=== PATIENT | female | born 1945 | race Caucasian/White ===

== ENCOUNTER → 2020-04-14 12:35 | Outpatient (CLI) | payer MEDICARE, SELFPAY ==
--- NOTE | ~2020-04-14 | XR_ITS ---
EXAMINATION: XR knee LT min 4V DATE: 04/14/2020 13:23 INDICATION: Left knee pain. TECHNIQUE: 4 views of left knee were obtained. COMPARISON: None. FINDINGS: Bone alignment is normal. No fracture. There is mild osteoarthritis of medial and lateral c ompartments and moderate osteoarthritis of patellofemoral compartment. No knee joint effusion. IMPRESSION: 1. Moderate left knee osteoarthritis. Reviewed, dictated and finalized at location A.
== END ==
PROVIDERS: PCP Physician Assistant; Visit Provider Physician Assistant
DX: M17.12 Unilateral primary osteoarthritis, left knee (principal)
CPT/HCPCS: 73564

== ENCOUNTER → 2021-01-02 10:27 | Outpatient (CLI) | payer MEDICARE, SELFPAY ==
--- NOTE | ~2021-01-02 | MM_ITS ---
EXAMINATION: MM screening [facility] BI w chapin HISTORY: Screening TECHNIQUE: Craniocaudal and mediolateral oblique 3-D tomosynthesis images were obtained and synthetic 2-D images were generated. CAD analysis was submitted and interpreted. COMPARISON: Comparison to multiple prior studies sequentially, with oldest reviewed study dated 05/17. BREAST PARENCHYMAL COMPOSITION: There are scattered areas of fibroglandular density. FINDINGS: There is no evidence of suspicious mass, calcification, or architectural distortion to sugg est malignancy in either breast. There has been no suspicious interval change. IMPRESSION: 1. No mammographic evidence of malignancy. 2. Recommend routine screening mammography in one year. BI-RADS Category 1: Negative Reviewed, dictated and finalized at location A.
--- NOTE | ~2021-01-02 | DEXA_ITS ---
Bone Density Report Name: Michelle Henry Age: 75 Sex: Female Ethnicity: White Date of : 1945 Indication: osteopenia; height loss; Referring Provider: Chantale Guy Study: Bone densitometry was performed. Exam Date: January 02, 2021 Accession number: [id number] Bone Density: Region BMD T-score Z-score Classification AP Spine (L1-L4) 0.889 -1.4 0.9 Osteopenia Femoral Neck (Left) 0.584 -2.4 -0.4 Osteopenia Total Hip (Left) 0.647 -2.4 -0.7 Osteopenia Femoral Neck (Right) 0.550 -2.7 -0.7 Osteoporosis Total Hip (Right) 0.565 -3.1 -1.4 Osteoporosis Total Hip Mean 0.606 -2.8 -1.1 Osteoporosis World Health Organization criteria for BMD impression classify patients as: Normal (T-score at or above -1.0), Osteopenia (T-score between -1.0 and -2.5), or Osteoporosis (T-score at or below -2.5). 10-year Fracture Risk: FRAX not reported because: Some T-score for Spine Total or Hip Total or Femoral Neck at or below -2.5 Previous Exams: Region Exam Age BMD T-score BMD Change BMD Change Date g/cm2 vs Baseline vs Previous AP Spine(L1-L4) 01/02/2021 75 0.889 -1.4 0.063* 0.023* 12/20/2016 71 0.865 -1.7 0.039* -0.080* 05/30/2012 67 0.945 -0.9 0.119* 0.009 04/08/2010 64 0.936 -1.0 0.110* -0.013 01/24/2008 62 0.948 -0.9 0.122* 0.059* 12/12/2006 61 0.889 -1.4 0.063* 0.063* 12/14/2004 59 0.826 -2.0 Total Hip(Left) 01/02/2021 75 0.647 -2.4 -0.254* -0.132* 12/20/2016 71 0.779 -1.3 -0.122* 0.011 05/30/2012 67 0.768 -1.4 -0.133* -0.054* 04/08/2010 64 0.822 -1.0 -0.079* -0.077* 01/24/2008 62 0.899 -0.4 -0.002 0.081* 12/12/2006 61 0.819 -1.0 -0.083* -0.083* 12/14/2004 59 0.901 -0.3 Total Hip(Right) 01/02/2021 75 0.565 -3.1 -0.244* -0.136* 12/20/2016 71 0.700 -2.0 -0.109* 0.031* 05/30/2012 67 0.670 -2.2 -0.139* -0.105* 04/08/2010 64 0.774 -1.4 -0.035* -0.031* 01/24/2008 62 0.806 -1.1 -0.003 0.072* 12/12/2006 61 0.734 -1.7 -0.075* -0.075* 12/14/2004 59 0.809 -1.1 *Denotes significance at 95% confidence level, LSC for AP Spine = 0.022 g/cm2, LSC for Total Hip = 0.027 g/cm2 Clinical Information Provided by Patient: Has used the
== END ==
PROVIDERS: PCP Family Medicine; Visit Provider Physician Assistant
DX: Z12.31 Encounter for screening mammogram for malignant neoplasm of breast (principal); Z78.0 Asymptomatic menopausal state; M85.89 Other specified disorders of bone density and structure, multiple sites; M81.0 Age-related osteoporosis without current pathological fracture
CPT/HCPCS: 77063; 77067; 77080

== ENCOUNTER → 2023-03-15 15:47 | Outpatient (CLI) | payer MEDICARE, SELFPAY ==
--- NOTE | ~2023-03-15 | MM_ITS ---
EXAMINATION: MM screening [facility] BI w chapin HISTORY: Screening mammogram TECHNIQUE: Craniocaudal and mediolateral oblique 3-D tomosynthesis images were obtained and synthetic 2-D images were generated. CAD analysis was submitted and interpreted. COMPARISON: 01/02/2021, 04/05/2019, 02/02/2018 BREAST PARENCHYMAL COMPOSITION:There are scattered areas of fibroglandular density. FINDINGS: No suspicious mass, calcification, or architectural distortion are identified in either fernanda ast to suggest malignancy. There has been no suspicious interval change. IMPRESSION: No mammographic evidence of malignancy. Recommend routine screening mammography in one year. BI-RADS Category 1: Negative Reviewed, dictated and finalized at location .
== END ==
PROVIDERS: PCP Family Medicine; Visit Provider Family Medicine
DX: Z12.31 Encounter for screening mammogram for malignant neoplasm of breast (principal)
CPT/HCPCS: 77063; 77067

== ENCOUNTER 2024-05-01 11:19 | Outpatient (CLI) | payer MEDICARE, SELFPAY ==
--- NOTE | ~2024-05-01 | MM_ITS ---
EXAMINATION: MM screening [facility] BI w chapin HISTORY: Screening mammogram TECHNIQUE: Craniocaudal and mediolateral oblique 3-D tomosynthesis images were obtained and synthetic 2-D images were generated. CAD analysis was submitted and interpreted. COMPARISON: 03/15/2023, 01/02/2021, 02/02/2018 BREAST PARENCHYMAL COMPOSITION:Not Dense. There are scattered areas of fibroglandular density. FINDINGS: No suspicious mass, calcification, or architectural distortion are identified in either fernanda ast to suggest malignancy. There has been no suspicious interval change. IMPRESSION: No mammographic evidence of malignancy. Recommend routine screening mammography in one year. BI-RADS Category 1: Negative Reviewed, dictated and finalized at location .
== END 2024-05-01 11:20 | disposition home or self-care (01) ==
LOC: MICIMG 11:19
PROVIDERS: PCP Family Medicine; Visit Provider Family Medicine
DX: Z12.31 Encounter for screening mammogram for malignant neoplasm of breast (principal)
CPT/HCPCS: 77063; 77067

== ENCOUNTER 2024-05-07 09:46 | Outpatient (CLI) | payer MEDICARE, SELFPAY ==
--- NOTE | ~2024-05-07 | DEXA_ITS ---
Bone Density Report Name: ANU OH Age: 79 Sex: Female Ethnicity: White Date of : 1945 Indication: postmenopausal; screening for osteoporosis; height loss; Referring Provider: IRISH OSORIO Study: Bone densitometry was performed. Exam Date: May 07, 2024 Accession number: [id number] Bone Density: Region BMD T-score Z-score Classification AP Spine(L2, L3, L4) 0.890 -1.7 0.9 Osteopenia Femoral Neck (Left) 0.546 -2.7 -0.6 Osteoporosis Total Hip (Left) 0.596 -2.8 -0.9 Osteoporosis Femoral Neck (Right) 0.517 -3.0 -0.8 Osteoporosis Total Hip (Right) 0.581 -3.0 -1.1 Osteoporosis Total Hip Mean 0.588 -2.9 -1.0 Osteoporosis World Health Organization criteria for BMD impression classify patients as: Normal (T-score at or above -1.0), Osteopenia (T-score between -1.0 and -2.5), or Osteoporosis (T-score at or below -2.5). 10-year Fracture Risk: FRAX not reported because: Some T-score for Spine Total or Hip Total or Femoral Neck at or below -2.5 Clinical Information Provided by Patient: Has used the following medications: Vitamin D, Calcium Patient maximum height was 61.5 Drinks caffeinated beverages Onset of menses at age 14 Number of children 2 Impression: The patient has osteoporosis, based on the Right Total Hip T-score. Discussion: INCREASED RISK OF FRACTURE. BONE DENSITY IS UNDESIRABLY LOW AT ONE OR MORE SKELETAL SITES, CONSISTENT WITH POSTMENOPAUSAL OSTEOPOROSIS. This patient's lowest T-score meets the World Health Organization's (WHO) criteria for osteoporosis at one or more sites (T-score -2.5 or below). In untreated patients, the risk of osteoporotic fracture increases approximately two-fold for each 1.0 SD decrease in T-score. Low bone density is not the only risk factor for fracture; also consider factors such as patient's age, frailty or poor health, risk of falling, risk of injury, previous osteoporotic fracture, family history of osteoporosis, cigarette smoking, low body weight, etc. Not everyone with low bone mineral density has osteoporosis; osteomalacia and other metabolic bone disorders should also be considered. Patients who have osteoporosis should be evaluated for specific diseases and conditions (secondary causes) that may cause or contribute to bone loss. The [place] [employer]ocrinologists (AACE) and National Osteoporosis Foundation (NOF) recommend pharmacologic intervention for all postmenopausal women whose T-score is in this range. The patient should follow a healthful lifestyle (good nutrition with adequate calcium and vitamin D, and appropriate weight-bearing exercise). Follow-Up: Consider a repeat BMD and Vertebral Fracture Assessment (VFA) exam in 2 years or sooner if medically necessary, to reassess this patient's status. Reported by: LARS on 05/07/2024 10:15:00 AM. Revi
== END 2024-05-07 09:47 | disposition home or self-care (01) ==
LOC: ANHIMG 09:47
PROVIDERS: PCP Family Medicine; Visit Provider Family Medicine
DX: M81.0 Age-related osteoporosis without current pathological fracture (principal); M85.88 Other specified disorders of bone density and structure, other site
CPT/HCPCS: 77080

== ENCOUNTER 2024-05-08 15:30 | Emergency (ER) | payer MEDICARE, SELFPAY ==
[2024-05-08 15:38] VITALS: BP 148/63; PULSE 64; RESP 16; TEMP 36; O2SAT 100
--- NOTE | 2024-05-08 15:40 | ED.EAR ---
HPI - Ear Problem General Chief complaint: Ear Stated complaint: Bilateral Ear clogged Time Seen by Provider: 05/08/24 15:40 Source: patient, RN notes reviewed and old records reviewed Mode of arrival: ambulatory Limitations: no limitations History of Present Illness HPI Narrative: patient presents with request for removal of bilateral cerumen impaction. She reports that she has been to embroidery worker today, they attempted to remove cerumen, but were not successful. She had been using Debrox for a couple of days prior to this. She does report decreased hearing in the left ear. She voices no other concerns or complaints right now. Related Data Home Medications Medication Instructions Recorded Confirmed aspirin 81 mg chewable tablet 81 mg PO DAILY 07/13/19 05/08/24 cholecalciferol (vitamin D3) 25 1,000 unit PO DAILY 07/13/19 05/08/24 mcg (1,000 unit) capsule glucosamine 750 mg-chondroitin 600 2 tablet PO BID 07/13/19 05/08/24 mg chewable tablet vit C 250 mg-vit E 90 mg-zinc 40 1 tablet PO BID 04/08/23 05/08/24 mg-copper 1 [id number] capsule (PreserVision AREDS-2) doxycycline hyclate 20 mg tablet 100 mg PO PRN PRN Acne 11/24/23 05/08/24 naproxen sodium 220 mg tablet 220 mg PO DAILY 05/04/24 05/08/24 (Aleve) pravastatin 10 mg tablet 10 mg PO DAILY 05/08/24 05/08/24 Allergies Allergy/AdvReac Type Severity Reaction Status Date / Time rosuvastatin Allergy Intermediate myalgias, Verified 05/08/24 15:38 elevated CK simvastatin Allergy Intermediate myalgias, Verified 05/08/24 15:38 elevated CK inositol AdvReac Intermediate Flushing Verified 05/08/24 15:38 niacin AdvReac Intermediate significant Verified 05/08/24 15:38 flushing, will not tolerate Review of Systems Review of Systems: All systems reviewed & are unremarkable except as noted in HPI and below Constitutional: Constitutional: Reports no additional constitutional complaints ENT: Reports system reviewed and no additional complaints, except as documented and Reports as per HPI Cardiovascular: Cardiovascular: Reports no additional cardiovascular complaints Respiratory: Respiratory: Reports no additional respiratory complaints Gastrointestinal: Gastrointestinal: Reports no additional gastrointestinal complaints PMFSH Past Medical History Medical History Cervical spondylosis Hepatitis C antibody test negative (~04/11/17) Lipoma (~2012) Metabolic syndrome X Mixed hyperlipidemia Overweight Postmenopausal osteoporosis Surgical History Surgical History History of colonoscopy (~06/17/15) History of colonoscopy (~01/21/05) History of esophagogastroduodenoscopy (EGD) (~05/14/09) History of tubal ligation (~1975) Family History Family History Father Family history of diabetes mellitus in first degree relative Acute myocardial infarction, Onset Age: 64 Family history of cardiovascular disease Diabetes mellitus Hypertension Mother Acute myocardial infarction, Onset Age: 66 Family history of cardiovascular disease Depression Hypertension Family history of malignant neoplasm of thyroid Sibling Acute myocardial infarction Social History Social History Social History: Caffeine- coffee Smoking status: Never smoker Second hand tobacco smoke exposure: No Alcohol intake: current Alcohol use details: Occasional Substance use: never Substance use type: does not use Lack of Transportation: No Lack of Food: Never True Current Housing: I Have Housing Concerned About Future Housing: No Difficulty Paying Gas/Electric Bills: No Difficulty Paying for Meds: No Currently Unemployed: No Education: Master's Degree or Higher Difficulty w/ Childcare or Family Care: No Occup
== END 2024-05-08 16:27 | disposition home or self-care (01) ==
PROVIDERS: Emergency Provider Nurse Practitioner Family; PCP Family Medicine
DX: H61.23 Impacted cerumen, bilateral (principal); H60.502 Unspecified acute noninfective otitis externa, left ear; H66.002 Acute suppurative otitis media without spontaneous rupture of ear drum, left ear; E78.2 Mixed hyperlipidemia; Z79.82 Long term (current) use of aspirin
CPT/HCPCS: 69210; 99213; A9270; G0463

== ENCOUNTER 2024-06-10 12:56 | Inpatient (IN) | payer MEDICARE, SELFPAY ==
[2024-06-10] VITALS (36 sets, daily range): BP systolic 102–175; BP diastolic 53–81; PULSE 56–94; RESP 12–29; TEMP 36.6–36.7; O2SAT 90–100; BMI 28.7
--- NOTE | ~2024-06-10 | XR_ITS ---
EXAMINATION: XR chest 2V DATE: 06/10/2024 13:22 INDICATION: Chest pain. Shortness of breath. TECHNIQUE: Frontal and lateral views of the chest were obtained. COMPARISON: Chest 2 views 06/04/2013 FINDINGS: There is no pneumonia, pleural effusion or pneumothorax. Cardiomegaly is noted. IMPRESSION: 1. Cardiomegaly. Reviewed, dictated and finalized at location A. IMPRESSION: 1. Cardiomegaly.
--- NOTE | ~2024-06-10 | XR_ITS ---
EXAMINATION: XR chest 1V portable DATE: 06/12/2024 10:36 INDICATION: Respiratory distress. TECHNIQUE: A single frontal view of the chest was obtained. COMPARISON: Chest 2 views 06/10/2024, chest CT 06/10/2024 FINDINGS: There is a diffuse interstitial pattern, consistent with mild pulmonary edema. No pleural e ffusion or pneumothorax. Cardiomegaly is noted. IMPRESSION: 1. Mild pulmonary edema. 2. Cardiomegaly. Reviewed, dictated and finalized at location B.
--- NOTE | ~2024-06-10 | CT_ITS ---
EXAMINATION: CTA chest abdomen pelvis DATE: 06/10/2024 14:36 INDICATION: Chest pain; rule out dissection. TECHNIQUE: Computed tomography angiography (CTA) of the chest, abdomen and pelvis was performed with 100 mL Omnipaque-350 intravenous contrast timed to evaluate the pulmonary arteries. Coronal maximum i ntensity projection 3D-reconstructions were created by the technologist. Automated exposure control a nd iterative reconstruction technique were employed. Exam dose: 468.48 mGy-cm total exam DLP. COMPARISON: None. FINDINGS: There is no evidence of pulmonary embolism. No hilar or mediastinal mass lesion or lymphadenopathy. Cardiomegaly. No pericardial or pleural effusion. There is atherosclerotic calcification of the aortic arch, descending thoracic and abdominal aorta bu t no thoracic or abdominal aortic aneurysm or dissection. No pulmonary infiltrate or consolidation or suspicious pulmonary mass density is noted. 1.4 x 2 cm gallstone is noted in the dependent aspect of the gallbladder. No gallbladder wall thickening or pericholecystic fluid or fat stranding. No bile duct or pancreatic duct dilatation. No hepatic, splenic, pancreatic, adrenal or renal space occupying mass lesion. No splenomegaly. No urinary tract calculus or hydroureteronephrosis. Pessary device. The urinary bladder, uterus and adnexal areas are unremarkable. No intraperitoneal or retroperitoneal or pelvic mass lesion or adenopathy or ascites. No bowel obstruction, bowel wall thickening, pneumatosis or intraperitoneal free air. Small fat-containing umbilical hernia. No suspicious osteolytic lesions. Occasional probable bone islands. Degenerative changes of the cervical, thoracic and lumbar spine. IMPRESSION: Thoracic and abdominal aortic atherosclerosis. No thoracic or abdominal aortic aneurysm or dissection Cardiomegaly Cholelithiasis Reviewed, dictated and finalized at Location A. Reviewed, dictated and finalized at location A. IMPRESSION: Thoracic and abdominal aortic atherosclerosis. No thoracic or abdo tanya aortic aneurysm or dissection Cardiomegaly Cholelithiasis
--- NOTE | ~2024-06-10 | XR_ITS ---
EXAMINATION: XR chest 1V portable DATE: 06/13/2024 14:20 INDICATION: Cough TECHNIQUE: frontal view of the chest was obtained. COMPARISON: Chest radiograph dated 06/12/2024 FINDINGS: Cardiomegaly. Retrocardiac airspace opacities in the left lower lung zone as well as blunting at the left costophrenic angle consistent with small left pleural effusion and associated atelectasis and/or pneumonia. There is mild increased interstitial pattern in the bilateral lower lung zones consistent with mild pulmonary edema. No pneumothorax or evident right pleural effusion Colonic interposition u nderlying the right hemidiaphragm. IMPRESSION: 1. Likely congestive heart failure with cardiomegaly and mild pulmonary edema and the lower lungs. 2. Small left pleural effusion with associated left basilar atelectasis or pneumonia. Reviewed, dictated and finalized at location A. IMPRESSION: 1. Likely congestive heart failure with cardiomegaly and mild pulmonary edema a nd the lower lungs. 2. Small left pleural effusion with associated left basilar atelectasis or pneu monia.
--- NOTE | 2024-06-10 12:59 | ECG_ITS ---
Test Date: 2024-06-10 13:05:02 Measurements Intervals [place] Rate: 62 P: 41 OK: 147 QRS: 1 QRSD: 77 T: -1 QT: 413 QTc: 420 Interpretive Statements SINUS RHYTHM VOLTAGE CRITERIA FOR LVH [MEETS CRITERIA IN ONE OF: R(aVL), S(V1), R(V5), R(V5/V6)+S(V1)] NONSPECIFIC T-WAVE ABNORMALITY ABNORMAL ECG No previous ECG available for comparison Electronically Signed On 06-10-2024 13:13:36 CDT by Judd Helton M.D.
[2024-06-10 13:13] LABS: Basophils Absolute Auto 0.1 K/mm3 (0.0-0.1); Basophils Percent Auto 0.5 % (0.2-1.2); Eosinophils Absolute Auto 0.1 K/mm3 (0-0.3); Hemoglobin 14.5 g/dL (12.0-15.0); Immature Granulocyte Absolute 0.07 K/mm3 (0.00-0.031); Immature Granulocyte Percent A 0.6 % (0-0.5); Lymphocytes Absolute Auto 1.51 K/mm3 (0.9-3.2); Lymphocytes Percent Auto 12.9 % (18.3-44.2); Mean Corpuscular Hemoglobin 29.1 pg (26-34); Mean Corpuscular Volume 88.2 fl (80-100); Mean Platelet Volume 10.9 fl (7.4-10.4); Monocytes Absolute Auto 0.9 K/mm3 (0.1-0.6); Monocytes Percent Auto 7.6 % (2.6-8.5); Neutrophils Percent Auto 77.4 % (45.5-73.1); Platelet Count Result 234 k/mm3 (150-375); Red Blood Count 4.99 M/mm3 (4.2-5.4); Red Cell Distribution Width 13.8 % (11.5-14.5); White Blood Count 11.7 K/mm3 (4.5-10.0)
[2024-06-10] MEDS: ASPIRIN 81 MG CHEWABLE TABLET 324 MG PO (13:16)
[2024-06-10 13:23] LABS: Alanine Aminotransferase 31 U/L (6-35); Albumin Level 4.4 g/dL (3.5-5.1); Alkaline Phosphatase 79 U/L (38-126); Anion Gap 7 mmol/L (4-12); Aspartate Amino Transferase 66 U/L (14-36); Blood Urea Nitrogen 23 mg/dL (7-17); Calcium 9.1 mg/dL (8.4-10.2); Carbon Dioxide 27 mmol/L (22-30); Chloride 103 mmol/L (98-107); Estimated CRCL calculation 71 ml/min; Estimated Glomerular Filt Rate > 60; Glucose 127 mg/dL (65-110); Lipase 77 U/L (23-300); Sodium 137 mmol/L (137-145)
[2024-06-10 13:25] LABS: INR 0.9; Prothrombin Time 12.7 Seconds (11.1-14.7)
[2024-06-10 13:26] LABS: Partial Thromboplastin Time 23.3 Seconds (22.3-36.8)
--- NOTE | 2024-06-10 13:47 | ED.CHESTPAIN ---
HPI - Chest Pain General Chief Complaint: Chest Pain Stated Complaint: mid-sternal chest pain 1.5 days, SOB Time Seen by Provider: 06/10/24 12:59 Source: patient Mode of arrival: ambulatory Limitations: no limitations History of Present Illness HPI narrative: This is a 79-year-old female, with history of hypertension, hyperlipidemia, who presents to the emergency department complaining of chest pain for the past day and half. The patient states she was in her usual state of health when the pain began. It is described as pressure-like radiating to the back and left arm. This is associated with dyspnea on exertion and aggravation with physical exertion. She denies nausea, vomiting, diaphoresis, bleeding has no other complaints at this time. Related Data Home Medications Medication Instructions Recorded Confirmed aspirin 81 mg chewable tablet 81 mg PO DAILY 07/13/19 05/08/24 cholecalciferol (vitamin D3) 25 1,000 unit PO DAILY 07/13/19 05/08/24 mcg (1,000 unit) capsule glucosamine 750 mg-chondroitin 600 2 tablet PO BID 07/13/19 05/08/24 mg chewable tablet vit C 250 mg-vit E 90 mg-zinc 40 1 tablet PO BID 04/08/23 05/08/24 mg-copper 1 [id number]-[id number]-jegtgt capsule (PreserVision AREDS-2) doxycycline hyclate 20 mg tablet 100 mg PO PRN PRN Acne 11/24/23 05/08/24 naproxen sodium 220 mg tablet 220 mg PO DAILY 05/04/24 05/08/24 (Aleve) pravastatin 10 mg tablet 10 mg PO DAILY 05/08/24 05/08/24 Allergies Allergy/AdvReac Type Severity Reaction Status Date / Time rosuvastatin Allergy Intermediate myalgias, Verified 05/08/24 15:38 elevated CK simvastatin Allergy Intermediate myalgias, Verified 05/08/24 15:38 elevated CK inositol AdvReac Intermediate Flushing Verified 05/08/24 15:38 niacin AdvReac Intermediate significant Verified 05/08/24 15:38 flushing, will not tolerate Review of Systems Review of Systems: All systems reviewed & are unremarkable except as noted in HPI and below PMFSH Past Medical History Medical History Cervical spondylosis Hepatitis C antibody test negative (~04/11/17) Lipoma (~2012) Metabolic syndrome X Mixed hyperlipidemia Overweight Postmenopausal osteoporosis Surgical History Surgical History History of colonoscopy (~06/17/15) History of colonoscopy (~01/21/05) History of esophagogastroduodenoscopy (EGD) (~05/14/09) History of tubal ligation (~1975) Family History Family History Father Family history of diabetes mellitus in first degree relative Acute myocardial infarction, Onset Age: 64 Family history of cardiovascular disease Diabetes mellitus Hypertension Mother Acute myocardial infarction, Onset Age: 66 Family history of cardiovascular disease Depression Hypertension Family history of malignant neoplasm of thyroid Sibling Acute myocardial infarction Social History Social History Social History: Caffeine- coffee Smoking status: Never smoker Second hand tobacco smoke exposure: No Alcohol intake: current Alcohol use details: Occasional Substance use: never Substance use type: does not use Lack of Transportation: No Lack of Food: Never True Current Housing: I Have Housing Concerned About Future Housing: No Difficulty Paying Gas/Electric Bills: No Difficulty Paying for Meds: No Currently Unemployed: No Education: Master's Degree or Higher Difficulty w/ Childcare or Family Care: No Occupation/Education: retired Gender identity (if verbalized by the patient): Female Exam Narrative: GENERAL: Well-developed, well-nourished, and in no acute distress. HEAD: Normocephalic, atraumatic. EYES: PERRLA and EOMI. ENT: Nares clear, no rhinorrhea or epistaxis. Mucous membranes moist. Oropharynx without tonsillar hypertrophy exudate or other lesions. NECK: Supple. No JVD CHEST: Clear to auscultation. No respiratory distress. No wheezes rales or rhonchi HEART: Regular rate and rhythm. No murmur heard. Normal peripheral pulses. ABDOMEN: Soft, nontender, nondistended, normal active bowel sounds. EXTREMITIES: Normal range of motion. No edema. SKIN: Warm, dry, no rash. NEURO: Alert and oriented x3. No focal deficit. Moving all 4 limbs spontaneously PSYCH: Normal mood and affect. Course Course Emergency Course: 13:45 - Notification received from lab, the patient's troponin is elevated to 3. EKG was not concerning for ST segment elevation. I suspect NSTEMI. Will contact Cardiology. 13:52 - Doctor Sunitha at bedside. Repeat EKG not concerning for STEMI. No immediate indication for catheterization at this time. Will rule out dissection and start heparin if indicated. Will attempt to control pain with nitro. If unsuccessful, the patient may need urgent catheterization. 14:50 - On re-evaluation, by my interpretation there is no noted dissection. The patient states her chest pain has significantly improved despite vomiting after taking nitroglycerin. 15:05 - Repeat EKG done at 14:57 demonstrates an inferior STEMI. greenskeeper laborer activated. Dr. Helton discussing the patient with marketing sales consultant, Dr. Pool. CTA negative for dissection. 15:09 - I discussed the patient with marketing sales consultant, Dr. Pool. 15:27 - I discussed the patient with hospitalist, AYAAN Fay and tobacco stripping machine operator, Dr. Hickey. Vital Signs Vital signs: Vital Signs Temperature 98.1 F 06/10/24 13:10 Pulse Rate 63 06/10/24 13:10 Respiratory Rate 21 H 06/10/24 13:10 Blood Pressure 175/69 H 06/10/24 13:10 Pulse Oximetry 100 06/10/24 13:10 Oxygen Delivery Room Air 06/10/24 13:10 Temperature 98.1 F 06/10/24 13:10 Pulse Rate 65 06/10/24 14:15 Respiratory Rate 17 06/10/24 14:15 Blood Pressure 140/81 06/10/24 14:15 Pulse Oximetry 97 06/10/24 14:15 Oxygen Delivery Room Air 06/10/24 13:13 MDM - Chest Pain MDM Narrative Medical decision making narrative: Plan: Labs, EKG, troponin, pain control, imaging, reassess Lab Data 06/10/24 13:08 06/10/24 13:08 Labs: Lab Results 06/10/24 Range/Units 13:08 WBC 11.7 H (4.5-10.0) K/mm3 RBC 4.99 (4.2-5.4) M/mm3 Hgb 14.5 (12.0-15.0) g/dL Hct 44.0 (37.0-47.0) % MCV 88.2 (80-100) fl MCH 29.1 (26-34) pg MCHC 33.0 (32-36) g/dl RDW 13.8 (11.5-14.5) % Plt Count 234 (150-375) k/mm3 MPV 10.9 H (7.4-10.4) fl Immature Gran % (Auto) 0.6 H (0-0.5) % Neut % (Auto) 77.4 H (45.5-73.1) % Lymph % (Auto) 12.9 L (18.3-44.2) % [place] % (Auto) 7.6 (2.6-8.5) % Eos % (Auto) 1.0 (0-4.4) % Baso % (Auto) 0.5 (0.2-1.2) % Lymph # (Auto) 1.51 (0.9-3.2) K/mm3 [place] # (Auto) 0.9 H (0.1-0.6) K/mm3 Eos # (Auto) 0.1 (0-0.3) K/mm3 Baso # (Auto) 0.1 (0.0-0.1) K/mm3 Abs Immat Gran (auto) 0.07 H (0.00-0.031) K/mm3 Absolute Neuts (auto) 9.0 H (1.3-6.7) K/mm3 Absolute Nucleated RBC 0.000 (0.0-0.012) K/mm3 Nucleated RBC % 0.0 (0.0-0.2) % PT 12.7 (11.1-14.7) Seconds INR 0.9 APTT 23.3 (22.3-36.8) Seconds Sodium 137 (137-145) mmol/L Potassium 4.0 (3.4-5.0) mmol/L Chloride 103 (98-107) mmol/L Carbon Dioxide 27 (22-30) mmol/L Anion Gap 7 (4-12) mmol/L BUN 23 H (7-17) mg/dL Creatinine 0.50 L (0.7-1.0) mg/dL Estim Creat Clear Calc 71 ml/min Estimated GFR > 60 (59 - ) Glucose 127 H (65-110) mg/dL Calcium 9.1 (8.4-10.2) mg/dL Total Bilirubin 1.0 (0.2-1.3) mg/dL AST 66 H (14-36) U/L ALT 31 (6-35) U/L Alkaline Phosphatase 79 (38-126) U/L Troponin I 3.180 H* (0.000-0.034) ng/mL Total Protein 8.0 (6.3-8.2) g/dL Albumin 4.4 (3.5-5.1) g/dL Lipase 77 (23-300) U/L ECG Data EKG #1: Attestation: I personally reviewed and interpreted this ECG as follows: ECG completion date: 06/10/24 ECG completion time: 13:05 Prior ECG tracings: not available for review Interpretation: Sinus rhythm, rate 62, normal axis, no ST segment elevations or T-wave inversions concerning for ischemia, normal intervals with QTC of 420. EKG #2: Attestation: I personally reviewed and interpreted this ECG as follows: ECG completion date: 06/10/24 ECG completion time: 14:07 Prior ECG tracings: available for review Interpretation: Sinus rhythm, rate 61, normal axis, no ST segment elevations or T-wave inversions concerning for ischemia, normal intervals with QTC of 418. EKG #3: Attestation: I personally reviewed and interpreted this ECG as follows: ECG completion date: 06/10/24 ECG completion time: 14:57 Prior ECG tracings: available for review Interpretation: Sinus bradycardia, rate 57, normal axis, ST segment elevation SD in the inferior leads (2, 3, AVF as well as V5 and V6). Normal intervals with QTC of 437. Critical Care Time Critical Care Time Critical Care Time: Yes Total Critical Care Time: 35 Discharge Plan Discharge Clinical Impression: Acute ST elevation myocardial infarction (STEMI) of inferior wall Chest pain Qualifiers: Chest pain type: unspecified Qualified Code(s): R07.9 - Chest pain, unspecified Patient Disposition: Still a Patient Condition: Critical Time of Disposition: 15:05
[2024-06-10] MEDS: NITROGLYCERIN SL 0.4 MG TABLET SUBLINGUAL (14:11)
--- NOTE | 2024-06-10 14:17 | PC.NURSE ---
second 0.4 nitro given at this time
--- NOTE | 2024-06-10 14:22 | PC.NURSE ---
third sublingal 0.4 nitro given at this time
--- NOTE | 2024-06-10 14:35 | PM.CNCAR ---
Assessment and Plan Assessment and plan (1) Non-STEMI (non-ST elevated myocardial infarction): Code(s): I21.4 - Non-ST elevation (NSTEMI) myocardial infarction Status: Acute Assessment and Plan: She is having chest pain and symptoms other worrisome for non ST-elevation myocardial infarction. EKG reviewed which does not have ST elevations which meet criteria for STEMI. EKG is repeated while in the ER which is predominantly unchanged from previous. She is still having pain however but has only received aspirin to this point. Given the fact that she does have high blood pressure as well as pain in between her shoulder blades, a CT scan of chest to rule out for dissection to be performed. Assuming CT scan is unremarkable, patient should be initiated on heparin per protocol for ACS. Aspirin 81 mg p.o. daily to be started, sublingual nitroglycerine 0.4 mg sublingual p.r.n. chest pain repeat Q 5 minutes for total of 3 doses. Pain is not relieved, up titration of nitroglycerin utilizing nitro drip if need be. P.r.n. IV morphine also can be provided to decrease myocardial oxygen demand. Patient does have a statin allergy but tolerates problems statin. Will increase pravastatin to 40 mg daily. Initiate O2. Trend cardiac enzymes. If pain continues and is not resolved, will pursue cardiac catheterization urgently. If pain does resolve, keep NPO after midnight for planned for cardiac catheterization in the morning. Continue losartan 25 mg p.o. daily and her blood pressure does seem to be significantly elevated and will initiate metoprolol tartrate 25 mg p.o. b.i.d.. 2D echocardiogram Doppler will be ordered also (2) Mixed hyperlipidemia: Code(s): E78.2 - Mixed hyperlipidemia Status: Acute Assessment and Plan: Will check a fasting lipid panel and initiate pravastatin (3) Essential (primary) hypertension: Code(s): I10 - Essential (primary) hypertension Status: Acute Assessment and Plan: Above goal. Continue losartan and adding metoprolol (4) Chest pain: Code(s): R07.9 - Chest pain, unspecified Status: Acute Assessment and Plan: Likely related non-STEMI but will rule out dissection with a CT scan (5) Prediabetes: Code(s): R73.03 - Prediabetes Status: Acute Assessment and Plan: Will check an A1c History of Present Illness History of Present Illness Consult date/time: 06/10/24 14:35 Requesting physician: Kevin Hurtado MD Consult reason: chest pain Reason For Visit: mid-sternal chest pain 1.5 days, SOB Narrative: Reason for consultation: Will chest pain, elevated troponin Date of service 06/10/2024 Requesting provider: Dr. Hurtado History: Patient is a 79-year-old female who came to hospital because of chest pain. Patient states that she started to have chest pain 2 days ago. States that the pain has been relatively constant since that time. It is located anterior chest radiated to her back and between her shoulder blades. She does describe some numbness in her arms. Pain worsened today and worsened with activity and therefore she came to the hospital for further workup and evaluation. Again she states that her symptoms have been relatively constant over the past couple of days but again progressively worsening. She has not had any past episodes. She did state that she had some bowel movements and her symptoms did improve. She otherwise denies any recent shortness of breath, syncope, presyncope, paroxysmal nocturnal dyspnea, orthopnea, edema palpitations. Electrocardiogram shows some nonspecific ST and T-wave abnormality and initial troponin is elevated. Review of Systems Review of Systems: All systems reviewed & are unremarkable except as noted in HPI and below Constitutional: Constitutional: Denies body ache(s) Eyes: Eyes: Denies blurry vision ENT: Denies Normal hearing present Cardiovascular: Cardiovascular: Reports chest pain and Denies diaphoresis Respiratory: Respiratory: Denies chest congestion Gastrointestinal: Gastrointestinal: Denies abdominal pain Genitourinary: Genitourinary: Denies hematuria Musculoskeletal: Musculoskeletal: Denies myalgias Integumentary/Breasts: Skin/Breast: Denies erythema Neurologic: Denies Abnormal speech present Psychiatric: Psychiatric: Denies anxiety Endocrine: Endocrine: Denies excessive sweating Hematologic/Lymphatic: Hematologic/Lymphatic: Denies easy bleeding Allergic/Immunologic: Allergic/Immunologic: Denies GI upset with certain foods PMFSH Past Medical History Medical History Cervical spondylosis Hepatitis C antibody test negative (~04/11/17) Lipoma (~2012) Metabolic syndrome X Mixed hyperlipidemia Overweight Postmenopausal osteoporosis Surgical History Surgical History History of colonoscopy (~06/17/15) History of colonoscopy (~01/21/05) History of esophagogastroduodenoscopy (EGD) (~05/14/09) History of tubal ligation (~1975) Family History Family History Father Family history of diabetes mellitus in first degree relative Acute myocardial infarction, Onset Age: 64 Family history of cardiovascular disease Diabetes mellitus Hypertension Mother Acute myocardial infarction, Onset Age: 66 Family history of cardiovascular disease Depression Hypertension Family history of malignant neoplasm of thyroid Sibling Acute myocardial infarction Social History Social History Social History: Caffeine- coffee Smoking status: Never smoker Second hand tobacco smoke exposure: No Alcohol intake: current Alcohol use details: Occasional Substance use: never Substance use type: does not use Lack of Transportation: No Lack of Food: Never True Current Housing: I Have Housing Concerned About Future Housing: No Difficulty Paying Gas/Electric Bills: No Difficulty Paying for Meds: No Currently Unemployed: No Education: Master's Degree or Higher Difficulty w/ Childcare or Family Care: No Occupation/Education: retired Gender identity (if verbalized by the patient): Female Meds Home Medications and Allergies Home Medications Medication Instructions Recorded Confirmed Type aspirin 81 mg chewable tablet 81 mg PO DAILY 07/13/19 05/08/24 History cholecalciferol (vitamin D3) 25 1,000 unit PO DAILY 07/13/19 05/08/24 History mcg (1,000 unit) capsule glucosamine 750 mg-chondroitin 600 2 tablet PO BID 07/13/19 05/08/24 History mg chewable tablet vit C 250 mg-vit E 90 mg-zinc 40 1 tablet PO BID 04/08/23 05/08/24 History mg-copper 1 mi-dintsy-hnicee capsule (PreserVision AREDS-2) doxycycline hyclate 20 mg tablet 100 mg PO PRN PRN Acne 11/24/23 05/08/24 History losartan 25 mg tablet See Rx Instructions .Route 04/10/24 05/08/24 Rx .COMPLEX #90 tabs naproxen sodium 220 mg tablet 220 mg PO DAILY 05/04/24 05/08/24 History (Aleve) ciprofloxacin 0.3 %-dexamethasone 4 drp EACH EAR Q12H 7 days #7.5 mL 05/08/24 Rx 0.1 % ear drops,suspension pravastatin 10 mg tablet 10 mg PO DAILY 05/08/24 05/08/24 History Allergies Allergy/AdvReac Type Severity Reaction Status Date / Time rosuvastatin Allergy Intermediate myalgias, Verified 05/08/24 15:38 elevated CK simvastatin Allergy Intermediate myalgias, Verified 05/08/24 15:38 elevated CK inositol AdvReac Intermediate Flushing Verified 05/08/24 15:38 niacin AdvReac Intermediate significant Verified 05/08/24 15:38 flushing, will not tolerate Vital Signs Vital Signs - 24 hr 06/10/24 13:10 06/10/24 13:13 06/10/24 14:15 Temperature 36.7 C Pulse Rate 63 65 Respiratory Rate 21 H 17 Blood Pressure 175/69 H 140/81 Pulse Oximetry 100 100 97 Oxygen Delivery Room Air Room Air Exam Narrative: Patient is awake alert oriented appears to be in mild distress. Appears stated age Const: General: uncomfortable HENMT: Ears: TM's normal bilaterally Face/Nose/Sinus: Normal nares present Eyes: General: appearance normal, both eyes and all related structures Sclera: sclerae normal Neck: Neck: supple and no JVD Chest: Other: No reproducible chest wall pain to palpation Resp: Effort & Inspection: normal respiratory effort Auscultation: clear to auscultation bilaterally Cardio: Rate: regular rate Rhythm: regular rhythm Heart sounds: no murmurs GI: Inspection: non-distended GI Palp: Yes Soft to palpation Skin: General skin exam: normal color Neuro: Speech: normal speech Sensory Exam: normal sensation Extrem: General: normal to inspection Psych: Mental Status: mental status grossly normal Affect: normal affect Results Labs and Meds 06/10/24 13:08 06/10/24 13:08 Lab results: Cardiac Enzymes 06/10/24 Range/Units 13:08 AST 66 H (14-36) U/L Troponin I 3.180 H* (0.000-0.034) ng/mL Coagulation 06/10/24 Range/Units 13:08 PT 12.7 (11.1-14.7) Seconds APTT 23.3 (22.3-36.8) Seconds CBC 06/10/24 Range/Units 13:08 WBC 11.7 H (4.5-10.0) K/mm3 RBC 4.99 (4.2-5.4) M/mm3 Hgb 14.5 (12.0-15.0) g/dL Hct 44.0 (37.0-47.0) % Plt Count 234 (150-375) k/mm3 Lymph # (Auto) 1.51 (0.9-3.2) K/mm3 [place] # (Auto) 0.9 H (0.1-0.6) K/mm3 Eos # (Auto) 0.1 (0-0.3) K/mm3 Baso # (Auto) 0.1 (0.0-0.1) K/mm3 Comprehensive Metabolic Panel 06/10/24 Range/Units 13:08 Sodium 137 (137-145) mmol/L Potassium 4.0 (3.4-5.0) mmol/L Chloride 103 (98-107) mmol/L Carbon Dioxide 27 (22-30) mmol/L BUN 23 H (7-17) mg/dL Creatinine 0.50 L (0.7-1.0) mg/dL Glucose 127 H (65-110) mg/dL Calcium 9.1 (8.4-10.2) mg/dL AST 66 H (14-36) U/L ALT 31 (6-35) U/L Alkaline Phosphatase 79 (38-126) U/L Total Protein 8.0 (6.3-8.2) g/dL Albumin 4.4 (3.5-5.1) g/dL Patient Weight 06/10/24 23:59 Weight 67.6 kg EKG personally viewed and independently interpreted showing normal sinus rhythm and nonspecific ST T-wave abnormality
--- NOTE | 2024-06-10 14:59 | PC.NURSE ---
patient began complaining of chest pain restarting at about 1456. EKG preformed and glass engraver at bedside to check on the patient at the same time. STEMI alert called. patient alert and oriented. complaining of pain that feels tight and like pressure 5/10. patient had one episode of emesis in cat scan.
[2024-06-10] MEDS: MORPHINE SULFATE (*CRX) 2 MG/ML INJ IV PUSH ×2 (15:12→20:57)
--- NOTE | 2024-06-10 15:29 | P.HP_ITS ---
H&P: HPI History of Present Illness Date/Time: 06/10/24 15:29 Chief Complaint: Chest pain Narrative: This is a 79 year old female with a significant past medical history of hypertension, hyperlipidemia who presented with complaints of chest pain that has been off and on since Tuesday. Patient reports the following history of presenting illness. She states that she started noticing pain in between her shoulder blades and did not think much of it as she attributed it to having chronic neck pain. She states that on Tuesday the pain was still there and she started to have nausea and vomiting. By Tuesday the nausea and vomiting worsened and pain became more constant especially with exertion. She then decided to come to the ER for further evaluation of her symptoms. She denies any fever, chills, nausea, vomiting, diarrhea, abdominal pain, chest pain, or shortness of breath right now. She does report that the pain in between her shoulder blades is still there but not as bad as it has been. She is currently resting comfortably in bed with son at the bedside. Work up in the hospital included a chest x-ray with shown cardiomegaly. Chest/Abdomen/Pelvis CTA was negative for Thoracic and abdominal aortic atherosclerosis, aneurysm or dissection, cholelithiasis. initial labs shown a white blood cell count of 11.7, blood sugar 127, AST 66, 1st troponin was 3.180, lipase 77. Initial EKG showed sinus rhythm with a rate of 62 with a nonspecific T-wave abnormality and a QTC of 420. cardiology was consulted while in the ED and instructed to give nitro for pain. She was given a dose of nitroglycerin sublingual which improved her chest pain significantly however she Head nausea vomiting shortly after. A repeat EKG was done and demonstrated an inferior STEMI and technical laboratory asst was activated for emergent cardiac catheterization with Dr. Pool office communication professor. Patient was given aspirin 324 mg, morphine 2 mg IV push, Zofran 4 mg IV push, Brilinta 180 mg, and started on a heparin infusion while in the ER. She was then taken to technical laboratory asst and was found to have a 100% thrombotic occlusion to her mid-distal left circumflex artery and had balloon angioplasty with stent placement. They also found diffuse stenosis 70-80% ostial-proximal segment of OM1 branch, 50-60% stenosis mid LAD, 70% stenosis proximal segment of major diagonal branch. EF was noted to be greater than 75%. Review of Systems Review of Systems: All systems reviewed & are unremarkable except as noted in HPI and below Constitutional: Constitutional: Reports as per HPI and Reports no additional constitutional complaints Eyes: Eyes: Reports as per HPI and Reports no additional eye complaints ENT: Reports system reviewed and no additional complaints, except as documented and Reports as per HPI Cardiovascular: Cardiovascular: Reports as per HPI and Reports no additional cardiovascular complaints Respiratory: Respiratory: Reports as per HPI and Reports no additional respiratory complaints Gastrointestinal: Gastrointestinal: Reports as per HPI and Reports no additional gastrointestinal complaints Genitourinary: Genitourinary: Reports no additional female genitourinary complaints and Reports as per HPI Musculoskeletal: Musculoskeletal: Reports no additional musculoskeletal complaints and Reports as per HPI Integumentary/Breasts: Skin/Breast: Reports system reviewed and no additional complaints, except as docu and Reports as per HPI Neurologic: Reports system reviewed and no additional complaints, except as documented and Reports as per HPI Psychiatric: Psychiatric: Reports no additional psychiatric complaints and Reports as per HPI [facility] Past Medical History Medical History (Updated 06/10/24 @ 21:31 by Nya Cordero APRN) Cervical spondylosis Hepatitis C antibody test negative (~04/11/17) Hypertension Lipoma (~2012) Macular degeneration Metabolic syndrome X Mixed hyperlipidemia Overweight Postmenopausal osteoporosis Surgical History Surgical History History of colonoscopy (~06/17/15) History of colonoscopy (~01/21/05) History of esophagogastroduodenoscopy (EGD) (~05/14/09) History of tubal ligation (~1975) Family History Family History Father Family history of diabetes mellitus in first degree relative Acute myocardial infarction, Onset Age: 64 Family history of cardiovascular disease Diabetes mellitus Hypertension Mother Acute myocardial infarction, Onset Age: 66 Family history of cardiovascular disease Depression Hypertension Family history of malignant neoplasm of thyroid Sibling Acute myocardial infarction Social History Social History Social History: Caffeine- coffee Smoking status: Never smoker Second hand tobacco smoke exposure: No Alcohol intake: current Drinks per week: 2 Alcohol use details: Occasional Substance use: never Substance use type: does not use Do You Feel Safe in your Home?: Yes Lack of Transportation: No Lack of Food: Never True Current Housing: I Do Not Have Housing Concerned About Future Housing: No Difficulty Paying Gas/Electric Bills: No Difficulty Paying for Meds: No Currently Unemployed: No Education: Master's Degree or Higher Difficulty w/ Childcare or Family Care: No Occupation/Education: retired Gender identity (if verbalized by the patient): Female Spiritual care concerns: No Meds Home Medications and Allergies Home Medications Medication Instructions Recorded Confirmed Type aspirin 81 mg chewable tablet 81 mg PO DAILY 07/13/19 06/10/24 History cholecalciferol (vitamin D3) 25 1,000 unit PO DAILY 07/13/19 06/10/24 History mcg (1,000 unit) capsule glucosamine 750 mg-chondroitin 600 2 tablet PO BID 07/13/19 06/10/24 History mg chewable tablet doxycycline hyclate 20 mg tablet 100 mg PO PRN PRN rosecea 11/24/23 06/10/24 History naproxen sodium 220 mg tablet 220 mg PO DAILY 05/04/24 06/10/24 History (Aleve) pravastatin 10 mg tablet 10 mg PO DIRECTED 05/08/24 06/10/24 History losartan 25 mg tablet 25 mg PO DAILY 06/10/24 06/10/24 History Allergies Allergy/AdvReac Type Severity Reaction Status Date / Time rosuvastatin Allergy Intermediate myalgias, Verified 06/10/24 18:39 elevated CK simvastatin Allergy Intermediate myalgias, Verified 06/10/24 18:39 elevated CK inositol AdvReac Intermediate Flushing Verified 06/10/24 18:39 niacin AdvReac Intermediate significant Verified 06/10/24 18:39 flushing, will not tolerate Vital Signs Vital Signs - 24 hr 06/10/24 13:10 06/10/24 13:13 06/10/24 14:15 Temperature 98.1 F Pulse Rate 63 65 Respiratory Rate 21 H 17 Blood Pressure 175/69 H 140/81 Pulse Oximetry 100 100 97 Oxygen Delivery Room Air Room Air Oxygen Flow Rate 06/10/24 15:19 06/10/24 13:06 06/10/24 13:15 Temperature Pulse Rate 64 62 Respiratory Rate 29 H 19 Blood Pressure Pulse Oximetry 100 99 99 Oxygen Delivery Nasal Cannula Oxygen Flow Rate 2 06/10/24 13:17 06/10/24 13:30 06/10/24 13:54 Temperature Pulse Rate 60 61 Respiratory Rate 27 H 12 Blood Pressure 171/64 H Pulse Oximetry 100 Oxygen Delivery Oxygen Flow Rate 06/10/24 14:00 06/10/24 14:16 06/10/24 15:01 Temperature Pulse Rate 61 68 57 L Respiratory Rate 18 17 19 Blood Pressure Pulse Oximetry 100 97 Oxygen Delivery Oxygen Flow Rate 06/10/24 15:15 Temperature Pulse Rate 63 Respiratory Rate 22 H Blood Pressure 150/56 H Pulse Oximetry 100 Oxygen Delivery Oxygen Flow Rate Exam Narrative: General: In no acute distress, well nourished Head: atraumatic, no encephalopathy Eyes: PERRLA, sclera clear ENT: moist mucous membranes, nasal passages clear Neck: supple, no JVD, no adenopathy, trachea midline Cardiac: Normal S1 and S2. No murmur, gallops or friction rubs, peripheral pulses intact. Right arterial T band in place with armboard Respiratory: Lungs clear to auscultation, no adventitious lung sounds, currently on room air Gastrointestinal: soft, non-distended, non-tender, normoactive bowel sounds. : voiding without difficulty. Extremities: moves all extremities well, no edema Skin: right wrist puncture site from sheath, t-band in place. Neuro: Alert and oriented x4, cranial nerves intact, no neuro deficits. Psych: normal mood, normal affect, interactive H&P: Results Labs Labs: Short CBC 06/10/24 Range/Units 13:08 WBC 11.7 H (4.5-10.0) K/mm3 Hgb 14.5 (12.0-15.0) g/dL Hct 44.0 (37.0-47.0) % Plt Count 234 (150-375) k/mm3 BMP 06/10/24 13:08 Sodium 137 Potassium 4.0 Chloride 103 Carbon Dioxide 27 BUN 23 H Creatinine 0.50 L Glucose 127 H Calcium 9.1 Cardiac Enzymes 06/10/24 Range/Units 13:08 Troponin I 3.180 H* (0.000-0.034) ng/mL Liver Function 06/10/24 Range/Units 13:08 Total Bilirubin 1.0 (0.2-1.3) mg/dL AST 66 H (14-36) U/L ALT 31 (6-35) U/L Alkaline Phosphatase 79 (38-126) U/L Albumin 4.4 (3.5-5.1) g/dL Imaging Chest x-ray: Radiologist's impression: EXAMINATION: XR chest 2V DATE: 06/10/2024 13:22 INDICATION: Chest pain. Shortness of breath. TECHNIQUE: Frontal and lateral views of the chest were obtained. COMPARISON: Chest 2 views 06/04/2013 FINDINGS: There is no pneumonia, pleural effusion or pneumothorax. Cardiomegaly is noted. IMPRESSION: 1. Cardiomegaly. Reviewed, dictated and finalized at location A. Chest/abdomen/pelvis CTA: Radiologist's impression: EXAMINATION: CTA chest abdomen pelvis DATE: 06/10/2024 14:36 INDICATION: Chest pain; rule out dissection. TECHNIQUE: Computed tomography angiography (CTA) of the chest, abdomen and pelvis was performed with 100 mL Omnipaque-350 intravenous contrast timed to evaluate the pulmonary arteries. Coronal maximum intensity projection 3D-rec onstructions were created by the technologist. Automated exposure control and iterative reconstruction technique were employed. Exam dose: 468.48 mGy-cm total exam DLP. COMPARISON: None. FINDINGS: There is no evidence of pulmonary embolism. No hilar or mediastinal mass lesion or lymphadenopathy. Cardiomegaly. No pericardial or pleural effusion. There is atherosclerotic calcification of the aortic arch, descending thoracic and abdominal aorta but no thoracic or abdominal aortic aneurysm or dissection. No pulmonary infiltrate or consolidation or suspicious pulmonary mass density is noted. 1.4 x 2 cm gallstone is noted in the dependent aspect of the gallbladder. No gallbladder wall thickening or pericholecystic fluid or fat stranding. No bile duct or pancreatic duct dilatation. No hepatic, splenic, pancreatic, adrenal or renal space occupying mass lesion. No splenomegaly. No urinary tract calculus or hydroureteronephrosis. Pessary device. The urinary bladder, uterus and adnexal areas are unremarkable. No intraperitoneal or retroperitoneal or pelvic mass lesion or adenopathy or ascites. No bowel obstruction, bowel wall thickening, pneumatosis or intraperitoneal free air. Small fat-containing umbilical hernia. No suspicious osteolytic lesions. Occasional probable bone islands. Degenerative changes of the cervical, thoracic and lumbar spine. IMPRESSION: Thoracic and abdominal aortic atherosclerosis. No thoracic or abdominal aortic aneurysm or dissection Cardiomegaly Cholelithiasis Reviewed, dictated and finalized at [facility]. Reviewed, dictated and finalized at location A. Assessment and Plan Assessment and plan (1) Acute ST elevation myocardial infarction (STEMI) of inferior wall: Code(s): I21.19 - ST elevation (STEMI) myocardial infarction involving other coronary artery of inferior wall Status: Acute Assessment and Plan: --patient reporting ongoing chest pain x 1.5 days however progressively worse today. She states her pain was substernal radiating to her back in between her shoulder blades and down her left arm. Elevated troponin initially 3.180, EKG was initially not showing ST elevation and patient was given Nitro SL. Shortly after Nitro was given patient vomited. Repeat EKG shown STEMI in inferior leads. Cath team called, loading dose of Brilinta 180 mg given, and she was taken to the technical laboratory asst for emergent intervention patient was found to have a 100% thrombotic occlusion to the mid distal left circumflex and cardiac stent was placed. Will need PCI of OM branch and mid LAD in the future per cardiology. Right radial approach, T-band in place. * Continue Eptifibatide and heparin infusion * continue Brilinta, aspirin, statin * Metoprolol 25mg BID ordered per cardiology recommendation and STEMI protocol * Admit to ICU for closer monitoring post cardiac catheterization * Initial Troponin 3.180 * CXR shown Cardiomegaly * CTA of the chest/abdomen/pelvis was negative for aneurysm or dissection, cardiomegaly * Echo ordered * heart healthy diet as tolerated (2) Chest pain: Qualifiers: Chest pain type: unspecified Qualified Code(s): R07.9 - Chest pain, unspecified Code(s): R07.9 - Chest pain, unspecified Status: Acute Assessment and Plan: see above (3) Hypertension: Code(s): I10 - Essential (primary) hypertension Status: Acute Assessment and Plan: * Blood pressures ranging 109/53-110/57 * Continue Losartan (4) Mixed hyperlipidemia: Code(s): E78.2 - Mixed hyperlipidemia Status: Acute Assessment and Plan: * Continue Aspirin and statin Quality VTE Prophylaxis VTE prophylaxis: pharmacologic ordered Hospitalist MIPS Advance Care Plan I have confirmed that the patient's Advanced Care Plan is present, code status is documented, or surrogate decision maker is listed in patient medical record.: Yes Medication Reconciliation I have utilized all available resources to obtain, update and review the patients current medications (includes all prescriptions, OTC, herbals, cannabis, and nutritional supplements).: Yes
--- NOTE | 2024-06-10 15:48 | WPDHPUPDATE1 ---
History and Physical Update Update Date/Time: 06/10/24 15:48 History and Physical has been reviewed, including an updated exam of the patient. There are NO changes in the patient's condition. Risks, benefits, and alternatives have been discussed and questions answered. Patient agrees to proceed with procedure.
--- NOTE | 2024-06-10 15:49 | P.PCNCC_ITS ---
Cardiac Cath Procedure Note Date of procedure:: 06/10/24 Performing physician:: Brendan Pool MD Procedure Procedure performed:: EMERGENT CARDIAC CATHETERIZATION AND PRIMARY PERCUTANEOUS CORONARY INTERVENTION REPORT DATE OF PROCEDURE: 06/10/2024 INDICATION FOR PROCEDURE: Delayed presentation Acute coronary syndrome-inferior ST-elevation myocardial infarction BRIEF CLINICAL HISTORY: 79-year-old female with hypertension, dyslipidemia. No known prior cardiac history. Patient presented to [facility] Emergency room with 2 day history of persistent chest pain which got worse today. In the ER, her initial EKG showed nonspecific T-wave abnormality. Subsequent EKG showed ST elevation in the inferior leads. Cardiac catheterization was activated for primary PCI. PROCEDURES PERFORMED: 1. Emergent left heart catheterization- Selective left and nonselective right coronary angiogram; left ventriculogram and hemodynamic assessment 2. Primary percutaneous coronary intervention- a) balloon angioplasty and stenting of totally occluded mid-distal left circumflex artery using 3.0 x 30 mm and 2.5 x 13 mm Biotronik sirolimus eluting stents in an overlapping fashion with no reflow phenomena; followed by aspiration thrombectomy, intracoronary injection of available medications including nitroprusside, adenosine, epinephrine with modest restorationism in the flow in the distal vessel; 3. Moderate sedation-CPT code 79888 and beyond MODERATE SEDATION: Midazolam 1 mg; fentanyl 50 mcg. Start time 1552 , Stop time ; Total [id number] time 156 minutes; Elidia Miller RN was trained observer for moderate sedation. ACCESS SITE: Right radial artery PROCEDURE NOTE: patient was was emergently brought to catheterization lab and prepped and draped in a usual sterile manner. After local anesthesia with lidocaine, right common radial artery access was taken with micropuncture needle followed by insertion of a 6 Mauritian sheath. patient received 100 mcg of nitroglycerin, 2.5 mg of verapamil through the radial sheath. During intervention, patient received bivalirudin for procedure anticoagulation. Selective left coronary angiogram was initially performed using JL 3.5 diagnostic catheter. There was difficulty in engaging the right coronary artery with a JR4 catheter despite multiple attempts. The same catheter was advanced in the LV cavity, left ventriculogram was performed followed by LV pressure measurement. After this, additional attempts were made to selectively engage RCA, however, it could not be visualized on nonselective angiogram. After this, attention was shifted to the PCI on the totally occluded left circumflex artery which appeared to be the culprit vessel for presentation. FINDINGS: LEFT MAIN CORONARY: Medium caliber vessel, mild plaque in the distal segment. LEFT ANTERIOR DESCENDING ARTERY: LAD is a medium caliber vessel the proximal - mid segment; tapers distally and reaches Kailyn PACs. There is diffuse 50-60% stenosis in the mid segment. Major diagonal branch is a medium caliber vessel with diffuse 70% stenosis in the proximal segment. LEFT CIRCUMFLEX ARTERY: LCX is a medium to large caliber vessel, likely dominant vessel. Gives rise to medium caliber OM1 branch which has diffuse 70- 80% stenosis at the ostium-proximal segment. The LCX is totally occluded in the mid -distal segment with significant thrombus burden. RIGHT CORONARY ARTERY: Could not be visualized, probably nondominant or occluded. LEFT VENTRICULOGRAM: Hyperdynamic LV systolic function, ejection fraction more than 70%, LVEDP elevated at 29 mmHg. HEMODYNAMIC ASSESSMENT: Opening pressure 134/74 mmHg , closing pressure 167/80 mmHg , LVEDP 29 mmHg; no significant gradient across aortic valve on the pullback of pigtail catheter. INTERVENTION REPORT: patient received bivalirudin for procedural anticoagulation. She had already received aspirin prior to arrival to the pharmacy laboratory technician. Loading dose of ticagrelor was given in the pharmacy laboratory technician. Coronary angiogram showed totally occluded mid and distal LCX which appeared to be culprit vessel for clinical presentation. Left main coronary artery ostium was selectively engaged using 6 Mauritian Q 3.5 guide catheter. After several attempts, the total occluded mid-distal LCX was crossed using 0.014 fighter pilot 150 wire. The wire was advanced in the distal LCX. Low inflation balloon angioplasty was performed using a 2.5 x 10 mm compliant balloon. This resulted in the restorationism of the flow in the vessel. After this, IC nitroglycerin was given which showed angiographic improvement. Next, a 3.0 x 30 mm Biotronik sirolimus eluting stent was advanced, however, there was difficulty in advancing the stent. After this, 6 Mauritian GuideLiner was used. Despite lack, the stent could not be advanced. After this, balloon angioplasty was again performed using 3.0 x 20 mm compliant balloon. After this, the same stent was advanced, and was deployed at the target lesion. Post deployment angiogram showed no flow distal to the vessel. In light of this, a 2.5 x 13 mm stent was deployed in the distal edge of the stent to cover possible geographical miss. The stent was deployed at nominal pressures. After this, angiogram showed no reflow. due to significant thrombus burden, we proceeded with aspiration thrombectomy using export catheter with extraction of small amount of thrombus. Angiogram showed no improvement in the distal follow-up. In light of the no reflow phenomena and thrombus burden, following available medications in the pharmacy laboratory technician were utilized intracoronary- nitroprusside, adenosine and epinephrine; and eptifibatide. There was modest improvement in the flow in the distal vessel. Patient had chest discomfort during no reflow phenomena, and had an episode of vomiting. She remained hemodynamically stable though. After improvement in the distal flow, patient's chest failed significantly improved. At this time, additional attempts for any intervention was not performed. Patient was continued on Bivalirudin, and was initiated on eptifibatide drip. She will be re-loaded with loading dose of ticagrelor as she vomited in the pharmacy laboratory technician. The sheath was taken out and radial band was applied for local hemostasis. CONCLUSIONS: 1. CAD- a)100% thrombotic occlusion mid-distal left circumflex artery ( infarct related vessel); diffuse 70-80% stenosis ostial-proximal segment of OM1 branch; b) diffuse 50-60% stenosis mid LAD; diffuse 70% stenosis proximal segment of major diagonal branch 2. Hyperdynamic LV systolic function, ejection fraction more than 75%; LVEDP elevated at 29 mmHg. 3. Primary PCI- PTCA/stenting of mid-distal LCX using 3.0 x 30 mm and 2.5 x 10 mm Biotronik sirolimus eluting stents in an overlapping fashion ( significant thrombus burden and no reflow post stenting- treated with aspiration thrombectomy, and available medications in the pharmacy laboratory technician including intracoronary eptifibatide, nitroprusside, adenosine and epinephrine with modest improvement in the distal flow). PLAN/RECOMMENDATIONS: 1. Admit to ICU. 2. Reload with ticagrelor as patient vomited in the pharmacy laboratory technician; continue dual antiplatelet therapy with aspirin and ticagrelor; high-dose statin. 3. Eptifibatide IV for next 18-24 hours, along with heparin after bivalirudin drip is complete. 4. Echo Doppler to rule out any mechanical complications of delayed presentation [place]. 5. Staged PCI of OM branch; and functional assessment of mid LAD in near future. 6. Labs including CBC, CMP, troponin trend, lipid panel, HbA1c. 7. Patient, her family and ICU team updated. This document was completed by using [employer] Direct speech recognition software, therefore, senior payroll specialist variances may occur.
--- NOTE | 2024-06-10 15:51 | WPDMODSED ---
Moderate Sedation Note-Pt Data Patient Data Allergies Allergy/AdvReac Type Severity Reaction Status Date / Time rosuvastatin Allergy Intermediate myalgias, Verified 05/08/24 15:38 elevated CK simvastatin Allergy Intermediate myalgias, Verified 05/08/24 15:38 elevated CK inositol AdvReac Intermediate Flushing Verified 05/08/24 15:38 niacin AdvReac Intermediate significant Verified 05/08/24 15:38 flushing, will not tolerate Home Medications Medication Instructions Recorded Confirmed Type aspirin 81 mg chewable tablet 81 mg PO DAILY 07/13/19 05/08/24 History cholecalciferol (vitamin D3) 25 1,000 unit PO DAILY 07/13/19 05/08/24 History mcg (1,000 unit) capsule glucosamine 750 mg-chondroitin 600 2 tablet PO BID 07/13/19 05/08/24 History mg chewable tablet vit C 250 mg-vit E 90 mg-zinc 40 1 tablet PO BID 04/08/23 05/08/24 History mg-copper 1 [id number] capsule (PreserVision AREDS-2) doxycycline hyclate 20 mg tablet 100 mg PO PRN PRN Acne 11/24/23 05/08/24 History losartan 25 mg tablet See Rx Instructions .Route 04/10/24 05/08/24 Rx .COMPLEX #90 tabs naproxen sodium 220 mg tablet 220 mg PO DAILY 05/04/24 05/08/24 History (Aleve) ciprofloxacin 0.3 %-dexamethasone 4 drp EACH EAR Q12H 7 days #7.5 mL 05/08/24 Rx 0.1 % ear drops,suspension pravastatin 10 mg tablet 10 mg PO DAILY 05/08/24 05/08/24 History Current Medications: Active Medications Aspirin (Aspirin 81 Mg Enteric Tablet) 81 mg PO QAM WADE Losartan Potassium (Losartan Potassium 25 Mg Tablet) 25 mg PO DAILY WADE Metoprolol Tartrate (Metoprolol Tartrate 25 Mg Tablet) 25 mg PO Q12HR WADE Perflutren Lipid Microsphere (Perflutren Lipid Microspheres 1.5 Ml Vial Diluted To 10 Ml Total Volume) 0 ml IV PUSH ONCE PRN; Protocol PRN Reason: adequate visualization Stop: 06/13/24 14:50 Pravastatin Sodium (Pravastatin Sodium 20 Mg Tablet) 20 mg PO DAILY [facility] Sedation/Anesthesia: No previous sedation/anesthesia problems (including family history). PMFSH Past Medical History Medical History (Updated 06/10/24 @ 15:46 by Nya Cordero APRN) Cervical spondylosis Hepatitis C antibody test negative (~04/11/17) Hypertension Lipoma (~2012) Metabolic syndrome X Mixed hyperlipidemia Overweight Postmenopausal osteoporosis Surgical History Surgical History History of colonoscopy (~06/17/15) History of colonoscopy (~01/21/05) History of esophagogastroduodenoscopy (EGD) (~05/14/09) History of tubal ligation (~1975) Family History Family History Father Family history of diabetes mellitus in first degree relative Acute myocardial infarction, Onset Age: 64 Family history of cardiovascular disease Diabetes mellitus Hypertension Mother Acute myocardial infarction, Onset Age: 66 Family history of cardiovascular disease Depression Hypertension Family history of malignant neoplasm of thyroid Sibling Acute myocardial infarction Social History Social History Social History: Caffeine- coffee Smoking status: Never smoker Second hand tobacco smoke exposure: No Alcohol intake: current Alcohol use details: Occasional Substance use: never Substance use type: does not use Lack of Transportation: No Lack of Food: Never True Current Housing: I Have Housing Concerned About Future Housing: No Difficulty Paying Gas/Electric Bills: No Difficulty Paying for Meds: No Currently Unemployed: No Education: Master's Degree or Higher Difficulty w/ Childcare or Family Care: No Occupation/Education: retired Gender identity (if verbalized by the patient): Female Mod Sed Physical Exam Physical Exam Pre Procedural Exam: Normal: Airway Hours since solid foods: 5 Hours since liquid intake: 5 Mallampati Classification: class II Internal Medicine - PN: Obj Da Vital Signs Vital Signs: Vital Signs - 24 hr 06/10/24 13:10 06/10/24 13:13 06/10/24 14:15 Temperature 36.7 C Pulse Rate 63 65 Respiratory Rate 21 H 17 Blood Pressure 175/69 H 140/81 Pulse Oximetry 100 100 97 Oxygen Delivery Room Air Room Air Oxygen Flow Rate 06/10/24 15:19 06/10/24 13:06 06/10/24 13:15 Temperature Pulse Rate 64 62 Respiratory Rate 29 H 19 Blood Pressure Pulse Oximetry 100 99 99 Oxygen Delivery Nasal Cannula Oxygen Flow Rate 2 06/10/24 13:17 06/10/24 13:30 06/10/24 13:54 Temperature Pulse Rate 60 61 Respiratory Rate 27 H 12 Blood Pressure 171/64 H Pulse Oximetry 100 Oxygen Delivery Oxygen Flow Rate 06/10/24 14:00 06/10/24 14:16 06/10/24 15:01 Temperature Pulse Rate 61 68 57 L Respiratory Rate 18 17 19 Blood Pressure Pulse Oximetry 100 97 Oxygen Delivery Oxygen Flow Rate 06/10/24 15:15 Temperature Pulse Rate 63 Respiratory Rate 22 H Blood Pressure 150/56 H Pulse Oximetry 100 Oxygen Delivery Oxygen Flow Rate Meds/Results Medications: Active Medications Generic Name Dose Route Start Last Admin Trade Name Freq PRN Reason Stop Dose Admin Aspirin 81 mg 06/11/24 09:00 Aspirin 81 Mg Enteric Tablet PO QAM [facility] Losartan Potassium 25 mg 06/11/24 09:00 Losartan Potassium 25 Mg Tablet PO DAILY [facility] Metoprolol Tartrate 25 mg 06/10/24 14:50 Metoprolol Tartrate 25 Mg Tablet PO Q12HR [facility] Perflutren Lipid Microsphere 0 ml 06/10/24 14:48 Perflutren Lipid Microspheres 1.5 Ml Vial Diluted To 10 Ml Total Volume IV PUSH 06/13/24 14:50 ONCE PRN adequate visualization Protocol Pravastatin Sodium 20 mg 06/10/24 14:50 Pravastatin Sodium 20 Mg Tablet PO DAILY [facility] Radiology Results: ITS Impressions Chest X-Ray 06/10/24 13:23 IMPRESSION: 1. Cardiomegaly. Chest/Abdomen/Pelvis CTA 06/10/24 14:47 IMPRESSION: Thoracic and abdominal aortic atherosclerosis. No thoracic or abdominal aortic aneurysm or dissection Cardiomegaly Cholelithiasis Labs 06/10/24 13:08 06/10/24 13:08 Labs: Laboratory Results - last 24 hr 06/10/24 13:08 WBC 11.7 H RBC 4.99 Hgb 14.5 Hct 44.0 MCV 88.2 MCH 29.1 MCHC 33.0 RDW 13.8 Plt Count 234 MPV 10.9 H Immature Gran % (Auto) 0.6 H Neut % (Auto) 77.4 H Lymph % (Auto) 12.9 L [place] % (Auto) 7.6 Eos % (Auto) 1.0 Baso % (Auto) 0.5 Lymph # (Auto) 1.51 [place] # (Auto) 0.9 H Eos # (Auto) 0.1 Baso # (Auto) 0.1 Abs Immat Gran (auto) 0.07 H Absolute Neuts (auto) 9.0 H Absolute Nucleated RBC 0.000 Nucleated RBC % 0.0 PT 12.7 INR 0.9 APTT 23.3 Sodium 137 Potassium 4.0 Chloride 103 Carbon Dioxide 27 Anion Gap 7 BUN 23 H Creatinine 0.50 L Estim Creat Clear Calc 71 Estimated GFR > 60 Glucose 127 H Calcium 9.1 Total Bilirubin 1.0 AST 66 H ALT 31 Alkaline Phosphatase 79 Troponin I 3.180 H* Total Protein 8.0 Albumin 4.4 Lipase 77 ASA Classification/Sedation ASA Classification/Sedation ASA Class: IV Emergent: Yes Risks: Risks, benefits and alternatives explained and patient/family accepted plan for sedation. Patient re-evaluated immediately prior to sedation.
--- NOTE | 2024-06-10 16:00 | ECG_ITS ---
Test Date: 2024-06-10 14:07:47 Measurements Intervals [place] Rate: 61 P: 71 CO: 157 QRS: 15 QRSD: 78 T: 7 QT: 412 QTc: 418 Interpretive Statements SINUS RHYTHM NONSPECIFIC ST AND T-WAVE ABNORMALITY ABNORMAL ECG Electronically Signed On 06-10-2024 14:22:50 CDT by Judd Helton M.D.
--- NOTE | 2024-06-10 18:24 | ADMGEN ---
This patient, Michelle Henry, was admitted to Intensive Care Unit-5. Patient/family oriented to hospital policies and general routines including ID bracelet, bed and alarms, visiting hours, pain management, procedures, bathroom and other care routines, personal items, smoking policy, room service/diet, and visiting hours. Information on how to activate the Rapid Response Team has been discussed. Patient/Family are encouraged to report perceived risks to care and to ask questions if they do not understand what they are told or what they should do.
[2024-06-10 18:32] LABS: Hemoglobin A1C 5.9 % (<5.7)
--- NOTE | 2024-06-10 18:35 | ECG_ITS ---
Test Date: 2024-06-10 18:43:53 Measurements Intervals [place] Rate: 59 P: 27 NC: 150 QRS: 21 QRSD: 82 T: 70 QT: 433 QTc: 432 Interpretive Statements SINUS BRADYCARDIA ST DEPRESSION, CONSIDER SUBENDOCARDIAL INJURY [0.1+ mV ST DEPRESSION] Compared to ECG 06/10/2024 14:07:47 ST (T wave) deviation now present Sinus rhythm no longer present T-wave abnormality no longer present STEMI II, III, avF Electronically Signed On 06-11-2024 10:54:42 CDT by Dhaval Kathleen M.D.
[2024-06-10] MEDS: PANTOPRAZOLE SODIUM IV 40 MG VIAL IV PUSH (18:44)
[2024-06-10] MEDS: METOCLOPRAMIDE HCL INJ 10 MG/2 ML VIAL 5 MG IV PUSH (18:45)
[2024-06-10] MEDS: SODIUM CHLORIDE 0.9% IV 1,000 ML 125 ML IV CONT (18:47)
[2024-06-10 19:16] LABS: Cholesterol 196 mg/dL (0-200); HDL Direct 56 mg/dL; Triglycerides 112 mg/dL (<150)
[2024-06-10 19:22] LABS: Basophils Absolute Auto 0.1 K/mm3 (0.0-0.1); Basophils Percent Auto 0.4 % (0.2-1.2); Eosinophils Percent Auto 0.2 % (0-4.4); Hematocrit 40.1 % (37.0-47.0); Hemoglobin 13.6 g/dL (12.0-15.0); Immature Granulocyte Absolute 0.05 K/mm3 (0.00-0.031); Immature Granulocyte Percent A 0.4 % (0-0.5); Lymphocytes Absolute Auto 0.95 K/mm3 (0.9-3.2); Lymphocytes Percent Auto 7.9 % (18.3-44.2); Mean Corpuscular HGB Conc 33.9 g/dl (32-36); Mean Corpuscular Hemoglobin 29.4 pg (26-34); Mean Corpuscular Volume 86.6 fl (80-100); Mean Platelet Volume 11.4 fl (7.4-10.4); Monocytes Absolute Auto 0.7 K/mm3 (0.1-0.6); Monocytes Percent Auto 5.8 % (2.6-8.5); Neutrophils Absolute Auto 10.3 K/mm3 (1.3-6.7); Neutrophils Percent Auto 85.3 % (45.5-73.1); Platelet Count Result 206 k/mm3 (150-375); Red Blood Count 4.63 M/mm3 (4.2-5.4); Red Cell Distribution Width 13.8 % (11.5-14.5)
[2024-06-10 19:26] LABS: LDL Cholesterol Direct 95 mg/dL
[2024-06-10 19:27] LABS: INR 4.5; Prothrombin Time 43.4 Seconds (11.1-14.7)
[2024-06-10 19:28] LABS: Partial Thromboplastin Time 92.6 Seconds (22.3-36.8)
--- NOTE | 2024-06-10 19:30 | PC.NURSE ---
Angiomax drip completed at 1930.
[2024-06-10 20:10] LABS: MRSA (PCR) NOT DETECTED (NOT DETECTE)
--- NOTE | 2024-06-10 20:26 | ECG_ITS ---
Test Date: 2024-06-10 20:30:44 Measurements Intervals [place] Rate: 59 P: 22 ID: 155 QRS: 31 QRSD: 74 T: 74 QT: 434 QTc: 431 Interpretive Statements SINUS BRADYCARDIA MARKED ST ELEVATION, CONSIDER INFERIOR INJURY [MARKED ST ELEVATION W/O NORMALLY INFLECTED T WAVE IN II/aVF] ACUTE [place] Compared to ECG 06/10/2024 18:43:53 Myocardial infarct finding now present ST (T wave) deviation still present Electronically Signed On 06-11-2024 10:57:12 CDT by Dhaval Kathleen M.D.
[2024-06-10] MEDS: NITROGLYCERIN/D5W 200 MCG/ML 50 MG/250 ML BTL 9 MG IV CONT (20:38)
--- NOTE | 2024-06-10 20:45 | PC.NURSE ---
2009 Entered room to assess patient. Patient c/o 8-9/10 pain in between her shoulder blades. Patient stated this is the same pain that brought her in to the hospital. Patient stated pain got better after the cardiac cath but returned once brought to the ICU. [address] Helton and notified of patient's continued pain. New orders received. 2032 Dr. Helton called back after reviewing EKG. Stated he would be calling Dr. Pool and this RN should receive a call from Dr. Pool. 2043 Dr. Pool called and update given on patient. New orders received.
[2024-06-10] MEDS: TICAGRELOR 90 MG TABLET 180 MG PO (20:58)
[2024-06-10] MEDS: HEPARIN SOD/D5W 100 UNITS/ML 25,000 UNITS/250 ML BAG 7 UNITS IV CONT (20:59)
[2024-06-10] MEDS: HEPARIN SODIUM 5,000 UNITS/ML VIAL 4000 UNITS IV PUSH (21:06)
[2024-06-11] VITALS (49 sets, daily range): BP systolic 118–186; BP diastolic 57–86; PULSE 56–72; RESP 17–33; TEMP 36.5–37.4; O2SAT 91–97
--- NOTE | 2024-06-11 | ECHO_ITS ---
Patient Info Name: Michelle Henry Age: 79 years : 1945 Gender: Female Ht: 62 in Wt: 149 lbs BSA: 1.74 m2 HR: 62 bpm BP: 137 / 66 mmHg Technical Quality: Fair Exam Date: 06/11/2024 10:25 AM Exam Location: Echo Lab Patient Status: Inpatient Admit Date: 06/10/2024 Staff Ordering Physician: Brendan Pool MD [employer] Consultant: Bobby Aranda RDCS Attending Provider: Jeison Potts MD Exam Type: CA echo dop color flow w con Study Info Indications - Post MT I21.4 - Non-ST elevation (NSTEMI) myocardial infarction Complete two-dimensional, color flow and Doppler transthoracic echocardiogram is performed. Summary 1. Complete two-dimensional, color flow and Doppler transthoracic echocardiogram is performed. 2. The left ventricle is normal in size. There is akinesis of the basal inferolateral, basal inferior septal, and basal inferior milan. The overall systolic function appears to be preserved with an LVEF estimated to be 50-55%. 3. The mitral valve is thickened. There is at least moderate posteriorly directed mitral regurgitation. Left Ventricle The left ventricle is normal in size. There is akinesis of the basal inferolateral, basal inferior septal, and basal inferior milan. The overall systolic function appears to be preserved with an LVEF estimated to be 50-55%. Right Ventricle The right ventricle is normal in size and systolic function. Left Atria The left atria is mildly enlarged. Right Atria The right atrium is normal in size. Aortic Valve The aortic valve is trileaflet and sclerotic. There is no aortic stenosis. There is moderate aortic regurgitation. Pulmonic Valve The pulmonic valve is not well visualized. There is mild pulmonic valve regurgitation by color Doppler. Mitral Valve The mitral valve is thickened. There is at least moderate posteriorly directed mitral regurgitation. Tricuspid Valve The tricuspid valve is normal. There is mild tricuspid regurgitation. Pericardium/Pleural Pericardium is normal in appearance with no evidence for significant pericardial effusion. Inferior Vena Cava Dilated inferior vena cava with <50% collapse upon inspiration consistent with elevated right atrial pressure, 15 mmHg. Left Ventricular Outflow Tract Name Value Normal LVOT 2D LVOT Diameter 1.89 cm Pulmonic Valve Name Value Normal PV Doppler PV Peak Gradient 4 mmHg PV Regurgitation Doppler NM Peak End Diastolic Velocity 179.82 cm/s Mitral Valve Name Value Normal MV Doppler MV Decel [place] 588.41 cm/s2 MV PHT 0 s MV Area (PHT) 4.64 cm2 4.00-5.00 MV Diastolic Function MV E Peak Velocity 96.28 cm/s MV A Peak Velocity 81.07 cm/s MV E/A 1.19 MV Decel Time 0 s Tricuspid Valve Name Value Normal TV Regurgitation Doppler TR Peak Velocity 333.09 cm/s TR Peak Gradient 44 mmHg Estimated PAP/RSVP RA Pressure 15 mmHg <=5 PA Systolic Pressure 59 mmHg <36 RV Systolic Pressure 59 mmHg <36 Aorta Name Value Normal Ascending Aorta Ao Root Diameter (MM) 2.28 cm Ao Root Diam Index (MM) 1.31 cm/m2 Aortic Valve Name Value Normal AV Doppler AV Peak Velocity 143.27 cm/s AV Peak Gradient 8 mmHg AV Mean Gradient 4 mmHg AV VTI 28.53 cm AV Regurgitation 2D LVOT Area 2.81 cm2 AV Regurgitation Doppler AR Decel Time 1 s AR Decel [place] 320.42 cm/s2 AR PHT 0 s Ventricles Name Value Normal LV Dimensions 2D/MM IVS Diastolic Thickness (2D) 0.82 cm 0.60-1.00 IVS Diastole Thickness (MM) 0.95 cm 0.60-0.90 LVID Diastole (2D) 5.14 cm 3.80-5.20 LVID Diastole (MM) 5.56 cm 3.80-5.20 LVIW Diastolic Thickness (2D) 0.93 cm 0.60-0.90 LVIW Diastolic Thickness (MM) 1.07 cm 0.60-0.90 LVID Systole (2D) 4.05 cm 2.20-3.50 LVID Systole (MM) 3.60 cm 2.20-3.50 LVOT Diameter 1.89 cm LV Mass (2D Cubed) 159.33 g 67.00-162.00 LV Mass Index (2D Cubed) 0.01 g/cm2 0.00-0.01 Relative Wall Thickness (2D) 0.36 LV Mass (MM Cubed) 219.93 g 67.00-162.00 LV Mass Index (MM Cubed) 0.01 g/cm2 0.00-0.01 Relative Wall Thickness (MM) 0.38 LV Fractional Shortening/Ejection Fraction 2D/MM LV Fractional Shortening (2D) 21 % 27-45 LV Fractional Shortening (MM) 35 % 27-45 LV EF (MM Teicholz) 64 % 54-74 LV EF (2D Teicholz) 43 % 54-74 LV Diastolic Volume (4C MOD) 102.19 ml LV EF (4C MOD) 59 % LV Diastolic Volume (2C MOD) 83.53 ml LV EF (2C MOD) 63 % LV Diastolic Volume (BP MOD) 96.60 ml 46.00-106.00 LV Diastolic Volume Index (BP MOD) 0.06 l/m2 0.03-0.06 LV Systolic Volume (BP MOD) 37.07 ml 14.00-42.00 LV Systolic Volume Index (BP MOD) 0.02 l/m2 0.01-0.02 LV EF (BP MOD) 62 % 54-74 LV Diastolic Length (4C) 7.19 cm LV Systolic Length (4C) 6.30 cm LV Stroke Volume (4C MOD) 60.33 ml Atria Name Value Normal LA Dimensions LA Dimension (MM) 5.13 cm 2.70-3.80 LA Volume (4C A-L) 88.32 ml LA Volume (BP A-L) 58.76 ml RA Dimensions RA Area (4C) 11.15 cm2 <=18.00 Report Signatures
[2024-06-11] MEDS: EPTIFIBATIDE 0.75 MG/ML 75 MG/100 ML VIAL 10.82 MG IV CONT (00:40)
[2024-06-11] MEDS: MORPHINE SULFATE (*CRX) 2 MG/ML INJ IV PUSH ×3 (02:59→16:19)
[2024-06-11] MEDS: ONDANSETRON INJ 4 MG/2 ML VIAL IV PUSH ×4 (03:04→22:46)
[2024-06-11 04:28] LABS: Basophils Percent Auto 0.3 % (0.2-1.2); Eosinophils Percent Auto 0.1 % (0-4.4); Hematocrit 37.2 % (37.0-47.0); Hemoglobin 12.9 g/dL (12.0-15.0); Immature Granulocyte Absolute 0.06 K/mm3 (0.00-0.031); Immature Granulocyte Percent A 0.5 % (0-0.5); Lymphocytes Absolute Auto 0.81 K/mm3 (0.9-3.2); Lymphocytes Percent Auto 6.8 % (18.3-44.2); Mean Corpuscular HGB Conc 34.7 g/dl (32-36); Mean Corpuscular Volume 86.5 fl (80-100); Monocytes Absolute Auto 0.9 K/mm3 (0.1-0.6); Monocytes Percent Auto 7.2 % (2.6-8.5); Neutrophils Absolute Auto 10.2 K/mm3 (1.3-6.7); Neutrophils Percent Auto 85.1 % (45.5-73.1); Platelet Count Result 198 k/mm3 (150-375); Red Cell Distribution Width 13.9 % (11.5-14.5)
[2024-06-11 04:40] LABS: Alanine Aminotransferase 33 U/L (6-35); Albumin Level 3.6 g/dL (3.5-5.1); Alkaline Phosphatase 76 U/L (38-126); Anion Gap 8 mmol/L (4-12); Aspartate Amino Transferase 126 U/L (14-36); Bilirubin,Total 1.4 mg/dL (0.2-1.3); Blood Urea Nitrogen 15 mg/dL (7-17); Calcium 8.4 mg/dL (8.4-10.2); Carbon Dioxide 23 mmol/L (22-30); Chloride 107 mmol/L (98-107); Estimated CRCL calculation 88 ml/min; Estimated Glomerular Filt Rate > 60; Glucose 144 mg/dL (65-110); Sodium 138 mmol/L (137-145)
[2024-06-11 04:41] LABS: Partial Thromboplastin Time 45.3 Seconds (22.3-36.8)
[2024-06-11] MEDS: HEPARIN SODIUM 5,000 UNITS/ML VIAL 4000 UNITS IV PUSH (04:50)
--- NOTE | 2024-06-11 08:57 | P.CONIN_ITS ---
Assessment and Plan Assessment and plan (1) Acute ST elevation myocardial infarction (STEMI) of inferior wall: Code(s): I21.19 - ST elevation (STEMI) myocardial infarction involving other coronary artery of inferior wall Status: Acute Assessment and Plan: Acute STEMI status post PCI of left circumflex with suboptimal results with residual thrombus in circumflex along with multiple other obstructive lesions including 70-80% stenosis in OM branch CTA negative for dissection or PE Patient continues to have chest pain Continue Integrilin heparin and nitroglycerin infusion. Requested nurse to up titrate nitroglycerin infusion P.r.n. morphine Check echocardiogram Continue aspirin Brilinta statin beta-avni losartan Case discussed with Dr. Kathleen from Cardiology including patient's come status and pain. He will review patient's catheterization images and evaluate the patient and decide on further plan of action. (2) Hypertension: Code(s): I10 - Essential (primary) hypertension Status: Acute Assessment and Plan: Continue losartan and metoprolol (3) Mixed hyperlipidemia: Code(s): E78.2 - Mixed hyperlipidemia Status: Acute Assessment and Plan: Atorvastatin (4) Nausea & vomiting: Code(s): R11.2 - Nausea with vomiting, unspecified Status: Acute Assessment and Plan: P.r.n. Zofran Clear liquid diet Plan DVT prophylaxis -heparin infusion Stress ulcer prophylaxis -Protonix Nutrition -clear liquid diet Code Status - Full Code Total Critical Care Time - 35 minutes Due to a high probability of clinically significant, life threatening deterioration, the patient required my highest level of preparedness to intervene emergently and I personally spent this critical care time directly and personally managing the patient. This critical care time included obtaining a history; examining the patient; pulse oximetry; ordering and review of studies; arranging urgent treatment with development of a management plan; evaluation of patient's response to treatment; frequent reassessment; and discussions with other providers. It was exclusive of separately billable procedures and treating other patients and teaching time. Please see Assessment and Plan section and the rest of the note for further information on patient assessment and treatment [employer] Teacher Consult Note Consult date: 06/11/24 Reason for consult: STEMI HPI: Michelle Henry is a 79 year old female with past medical history of hypertension and hyperlipidemia presented which ER yesterday with chest pain for last 2 days. Pressure-like pain radiated to back and arms. As stated with dyspnea on exertion as stated with nausea. No fever shortness of breath or cough otherwise. No abdominal pain diarrhea dysuria hematuria. Workup in the ER showed Chest/Abdomen/Pelvis CTA was negative for Thoracic and abdominal aortic atherosclerosis, aneurysm or dissection, cholelithiasis. white blood cell count of 11.7, blood sugar 127, AST 66, 1st troponin was 3.180, lipase 77. Initial EKG showed sinus rhythm with a rate of 62 with a nonspecific T-wave abnormality and a QTC of 420. A repeat EKG was done and demonstrated an inferior STEMI Patient was given aspirin 324 mg, morphine 2 mg IV push, Zofran 4 mg IV push, Brilinta 180 mg, and started on a heparin infusion while in the ER. She was then taken to physical laboratory assistant and was found to have a 100% thrombotic occlusion to her mid- distal left circumflex artery and had balloon angioplasty with stent placement. They also found diffuse stenosis 70-80% ostial-proximal segment of OM1 branch, 50-60% stenosis mid LAD, 70% stenosis proximal segment of major diagonal branch. EF was noted to be greater than 75%. Patient underwent stenting off mid distal left circumflex artery with less than optimal results to large amount of thrombus Patient was then admitted to ICU for further evaluation managed. Patient is on Integrilin and heparin and nitroglycerin infusion This morning she states she continues to have pain and rates it at 4/10 in the chest, and 7-8 out of 10 in between her shoulder blades. Patient states the pain is better than presentation but has not completely resolved. She continues to have nausea and had few episodes of vomiting. Denies any other complaints all other systems were reviewed and were negative Review of Systems Review of Systems: All systems reviewed & are unremarkable except as noted in HPI and below (HPI) [facility] Past Medical History Medical History Cervical spondylosis Hepatitis C antibody test negative (~04/11/17) Hypertension Lipoma (~2012) Macular degeneration Metabolic syndrome X Mixed hyperlipidemia Overweight Postmenopausal osteoporosis Surgical History Surgical History History of colonoscopy (~06/17/15) History of colonoscopy (~01/21/05) History of esophagogastroduodenoscopy (EGD) (~05/14/09) History of tubal ligation (~1975) Family History Family History Father Family history of diabetes mellitus in first degree relative Acute myocardial infarction, Onset Age: 64 Family history of cardiovascular disease Diabetes mellitus Hypertension Mother Acute myocardial infarction, Onset Age: 66 Family history of cardiovascular disease Depression Hypertension Family history of malignant neoplasm of thyroid Sibling Acute myocardial infarction Social History Social History Social History: Caffeine- coffee Smoking status: Never smoker Second hand tobacco smoke exposure: No Alcohol intake: current Drinks per week: 2 Alcohol use details: Occasional Substance use: never Substance use type: does not use Do You Feel Safe in your Home?: Yes Lack of Transportation: No Lack of Food: Never True Current Housing: I Do Not Have Housing Concerned About Future Housing: No Difficulty Paying Gas/Electric Bills: No Difficulty Paying for Meds: No Currently Unemployed: No Education: Master's Degree or Higher Difficulty w/ Childcare or Family Care: No Occupation/Education: retired Gender identity (if verbalized by the patient): Female Spiritual care concerns: No Meds Home Medications and Allergies Home Medications Medication Instructions Recorded Confirmed Type aspirin 81 mg chewable tablet 81 mg PO DAILY 07/13/19 06/10/24 History cholecalciferol (vitamin D3) 25 1,000 unit PO DAILY 07/13/19 06/10/24 History mcg (1,000 unit) capsule glucosamine 750 mg-chondroitin 600 2 tablet PO BID 07/13/19 06/10/24 History mg chewable tablet doxycycline hyclate 20 mg tablet 100 mg PO BID 11/24/23 06/10/24 History naproxen sodium 220 mg tablet 220 mg PO DAILY 05/04/24 06/10/24 History (Aleve) pravastatin 10 mg tablet 10 mg PO DIRECTED 05/08/24 06/10/24 History losartan 25 mg tablet 25 mg PO DAILY 06/10/24 06/10/24 History ticagrelor 90 mg tablet (Brilinta) 90 mg PO Q12HR #60 tabs 06/11/24 Rx Allergies Allergy/AdvReac Type Severity Reaction Status Date / Time rosuvastatin Allergy Intermediate myalgias, Verified 06/10/24 18:39 elevated CK simvastatin Allergy Intermediate myalgias, Verified 06/10/24 18:39 elevated CK inositol AdvReac Intermediate Flushing Verified 06/10/24 18:39 niacin AdvReac Intermediate significant Verified 06/10/24 18:39 flushing, will not tolerate Vital Signs Vital Signs - 24 hr 06/10/24 13:10 06/10/24 13:13 06/10/24 14:15 Temperature 36.7 C Pulse Rate 63 65 Respiratory Rate 21 H 17 Blood Pressure 175/69 H 140/81 Pulse Oximetry 100 100 97 Oxygen Delivery Room Air Room Air Oxygen Flow Rate Fraction of Inspired Oxygen 06/10/24 15:19 06/10/24 13:06 06/10/24 13:15 Temperature Pulse Rate 64 62 Respiratory Rate 29 H 19 Blood Pressure Pulse Oximetry 100 99 99 Oxygen Delivery Nasal Cannula Oxygen Flow Rate 2 Fraction of Inspired Oxygen 06/10/24 13:17 06/10/24 13:30 06/10/24 13:54 Temperature Pulse Rate 60 61 Respiratory Rate 27 H 12 Blood Pressure 171/64 H Pulse Oximetry 100 Oxygen Delivery Oxygen Flow Rate Fraction of Inspired Oxygen 06/10/24 14:00 06/10/24 14:16 06/10/24 15:01 Temperature Pulse Rate 61 68 57 L Respiratory Rate 18 17 19 Blood Pressure Pulse Oximetry 100 97 Oxygen Delivery Oxygen Flow Rate Fraction of Inspired Oxygen 06/10/24 15:15 06/10/24 18:39 06/10/24 18:45 Temperature Pulse Rate 63 69 66 Respiratory Rate 22 H 15 22 H Blood Pressure 150/56 H 155/80 H 161/67 H Pulse Oximetry 100 94 93 Oxygen Delivery Oxygen Flow Rate Fraction of Inspired Oxygen 06/10/24 19:00 06/10/24 19:15 06/10/24 19:55 Temperature 36.6 C Pulse Rate 63 64 94 Respiratory Rate 23 H 24 H 24 H Blood Pressure 167/68 H 161/68 H 156/64 H Pulse Oximetry 94 93 94 Oxygen Delivery Oxygen Flow Rate Fraction of Inspired Oxygen 06/10/24 19:56 06/10/24 20:38 06/10/24 20:54 Temperature Pulse Rate 60 64 59 L Respiratory Rate Blood Pressure 151/64 H 156/61 H 141/67 H Pulse Oximetry 94 Oxygen Delivery Oxygen Flow Rate Fraction of Inspired Oxygen 06/10/24 21:02 06/10/24 21:08 06/10/24 21:23 Temperature Pulse Rate 60 56 L 58 L Respiratory Rate Blood Pressure 102/61 109/53 L 110/57 L Pulse Oximetry Oxygen Delivery Oxygen Flow Rate Fraction of Inspired Oxygen 06/10/24 21:02 06/10/24 22:02 06/10/24 22:02 Temperature Pulse Rate 57 L 60 Respiratory Rate Blood Pressure 109/53 L 144/64 H 144/64 H Pulse Oximetry 90 Oxygen Delivery Oxygen Flow Rate Fraction of Inspired Oxygen 06/10/24 22:21 06/10/24 20:00 06/10/24 20:00 Temperature Pulse Rate 59 L 64 Respiratory Rate Blood Pressure 150/67 H Pulse Oximetry Oxygen Delivery Room Air Oxygen Flow Rate Fraction of Inspired Oxygen 06/10/24 22:00 06/10/24 20:35 06/10/24 21:35 Temperature Pulse Rate 59 L 63 56 L Respiratory Rate 20 24 H Blood Pressure 156/61 H 139/67 Pulse Oximetry 94 94 Oxygen Delivery Oxygen Flow Rate Fraction of Inspired Oxygen 06/10/24 22:20 06/10/24 22:45 06/10/24 23:04 Temperature Pulse Rate 60 59 L Respiratory Rate 21 H 21 H Blood Pressure 150/67 H 139/62 140/69 Pulse Oximetry 98 97 Oxygen Delivery Oxygen Flow Rate Fraction of Inspired Oxygen 06/10/24 21:55 06/11/24 00:13 06/11/24 00:00 Temperature 36.5 C Pulse Rate 60 58 L 56 L Respiratory Rate 22 H 20 Blood Pressure 144/64 H 129/67 129/67 Pulse Oximetry 96 97 Oxygen Delivery Oxygen Flow Rate Fraction of Inspired Oxygen 06/11/24 01:10 06/11/24 00:00 06/11/24 00:00 Temperature Pulse Rate 56 L Respiratory Rate Blood Pressure 153/70 H Pulse Oximetry 96 Oxygen Delivery Nasal Cannula Oxygen Flow Rate 2 Fraction of Inspired Oxygen 06/10/24 23:15 06/11/24 00:30 06/10/24 23:50 Temperature Pulse Rate 60 58 L 59 L Respiratory Rate 21 H 25 H 23 H Blood Pressure 145/65 H 152/66 H 139/71 Pulse Oximetry 97 97 97 Oxygen Delivery Oxygen Flow Rate Fraction of Inspired Oxygen 06/11/24 01:35 06/11/24 02:00 06/11/24 02:00 Temperature Pulse Rate 60 61 60 Respiratory Rate 25 H Blood Pressure 154/69 H 152/63 H Pulse Oximetry 96 Oxygen Delivery Oxygen Flow Rate Fraction of Inspired Oxygen 06/11/24 02:03 06/11/24 02:33 06/11/24 02:00 Temperature Pulse Rate 62 60 Respiratory Rate 26 H Blood Pressure 152/63 H 145/71 H 152/63 H Pulse Oximetry 97 Oxygen Delivery Oxygen Flow Rate Fraction of Inspired Oxygen 06/11/24 02:56 06/11/24 03:06 06/11/24 04:01 Temperature Pulse Rate 61 65 58 L Respiratory Rate Blood Pressure 150/60 H 145/83 H 141/67 H Pulse Oximetry Oxygen Delivery Oxygen Flow Rate Fraction of Inspired Oxygen 06/11/24 04:00 06/11/24 04:34 06/11/24 04:00 Temperature 36.8 C Pulse Rate 62 60 Respiratory Rate 22 H Blood Pressure 137/66 Pulse Oximetry 96 97 Oxygen Delivery Nasal Cannula Oxygen Flow Rate 2 Fraction of Inspired Oxygen 06/10/24 22:00 06/11/24 06:00 06/11/24 06:00 Temperature Pulse Rate 59 L 59 L Respiratory Rate Blood Pressure 142/66 H Pulse Oximetry 96 Oxygen Delivery Nasal Cannula Oxygen Flow Rate 2 Fraction of Inspired Oxygen 06/11/24 06:00 06/11/24 07:53 06/11/24 08:00 Temperature 36.9 C Pulse Rate 59 L 61 Respiratory Rate 23 H 18 Blood Pressure 142/66 H 144/68 H Pulse Oximetry 95 96 96 Oxygen Delivery Nasal Cannula Oxygen Flow Rate 2 Fraction of Inspired Oxygen 06/11/24 07:00 06/11/24 08:00 06/11/24 08:00 Temperature 36.9 C Pulse Rate 61 61 61 Respiratory Rate 26 H 18 Blood Pressure 143/64 H 144/68 H 143/72 H Pulse Oximetry 93 96 Oxygen Delivery Oxygen Flow Rate Fraction of Inspired Oxygen 06/11/24 08:15 06/11/24 08:30 Temperature Pulse Rate 61 65 Respiratory Rate Blood Pressure 143/72 H 145/69 H Pulse Oximetry Oxygen Delivery Oxygen Flow Rate Fraction of Inspired Oxygen Exam Narrative: General: Pt is alert awake and in NAD Lungs/Chest: Trachea central Clear BS B/L, No crackles or wheezing. Cardiac: RRR. Normal S1 S2. No murmurs Circulation: Bilateral dorsalis pedis are weak but palpable and symmetric. Abdomen: Normal bowel sounds.. Soft. NT. ND. Extremities: No clubbing, cyanosis or edema. Warm TR band on right radial. Cap refill adequate on the right hand : [place] in place Neurologic: Follows commands. Moves all 4 extremities PERRL AO x3 Skin: No Rash Results Labs 06/11/24 04:16 06/11/24 04:16 Labs: Impressions Chest X-Ray 06/10/24 13:23 IMPRESSION: 1. Cardiomegaly. Chest/Abdomen/Pelvis CTA 06/10/24 14:47 IMPRESSION: Thoracic and abdominal aortic atherosclerosis. No thoracic or abdominal aortic aneurysm or dissection Cardiomegaly Cholelithiasis Short CBC 06/10/24 06/10/24 06/11/24 Range/Units 13:08 19:01 04:16 WBC 11.7 H 12.0 H 12.0 H (4.5-10.0) K/mm3 Hgb 14.5 13.6 12.9 (12.0-15.0) g/dL Hct 44.0 40.1 37.2 (37.0-47.0) % Plt Count 234 206 198 (150-375) k/mm3 BMP 06/10/24 06/11/24 13:08 04:16 Sodium 137 138 Potassium 4.0 4.0 Chloride 103 107 Carbon Dioxide 27 23 BUN 23 H 15 D Creatinine 0.50 L 0.40 L Glucose 127 H 144 H Calcium 9.1 8.4 Cardiac Enzymes 06/10/24 06/10/24 06/10/24 Range/Units 13:08 15:31 19:02 Troponin I 3.180 H* 3.330 H* 3.540 H* (0.000-0.034) ng/mL 06/10/24 06/11/24 Range/Units 22:51 04:16 Troponin I 5.790 H* D 10.500 H* D (0.000-0.034) ng/mL Liver Function 06/10/24 06/11/24 Range/Units 13:08 04:16 Total Bilirubin 1.0 1.4 H (0.2-1.3) mg/dL AST 66 H 126 H (14-36) U/L ALT 31 33 (6-35) U/L Alkaline Phosphatase 79 76 (38-126) U/L Albumin 4.4 3.6 (3.5-5.1) g/dL Quality VTE Prophylaxis VTE prophylaxis: pharmacologic ordered Hospitalist MIPS Advance Care Plan I have confirmed that the patient's Advanced Care Plan is present, code status is documented, or surrogate decision maker is listed in patient medical record.: Yes Medication Reconciliation I have utilized all available resources to obtain, update and review the patients current medications (includes all prescriptions, OTC, herbals, cannabis, and nutritional supplements).: Yes
--- NOTE | 2024-06-11 10:08 | P.PNCA_ITS ---
Progress Note: A&P Assessment and Plan (1) Acute ST elevation myocardial infarction (STEMI) of inferior wall: Code(s): I21.19 - ST elevation (STEMI) myocardial infarction involving other coronary artery of inferior wall Status: Acute Plan 79-year-old woman with hyperlipidemia who initially presented as the late presentation STEMI with no reflow phenomenon after PCI Posterior STEMI -can stop Integrilin and heparin drip -should remove TR band -continue aspirin 81 mg daily and ticagrelor 90 mg p.o. b.i.d. -continue atorvastatin 40 mg every evening -up titrate nitro drip to resolve chest pain -trend troponin to peak, repeat EKG, and obtain transthoracic echocardiogram Subjective Date/time seen: 06/11/24 10:08 Interval history: 79-year-old woman with hyperlipidemia who initially presented as the late presentation STEMI with no reflow phenomenon after PCI. She currently still has some chest pain as well as back pain between her scapula. Otherwise she does not have any shortness of breath. Review of Systems Review of Systems: All systems reviewed & are unremarkable except as noted in HPI and below Exam Const: General: comfortable HENMT: Mouth: Yes moist mucous membranes Eyes: EOM: EOMs intact bilaterally Neck: Neck: no JVD Resp: Effort & Inspection: normal respiratory effort Auscultation: clear to auscultation bilaterally Cardio: Rate: regular rate Rhythm: regular rhythm GI: GI Palp: Yes Soft to palpation Extrem: General: normal to inspection Psych: Affect: normal affect Objective Data Vital Signs Vital Signs: Vital Signs - 24 hr 06/10/24 13:10 06/10/24 13:13 06/10/24 14:15 Temperature 36.7 C Pulse Rate 63 65 Respiratory Rate 21 H 17 Blood Pressure 175/69 H 140/81 Pulse Oximetry 100 100 97 Oxygen Delivery Room Air Room Air Oxygen Flow Rate Fraction of Inspired Oxygen 06/10/24 15:19 06/10/24 13:06 06/10/24 13:15 Temperature Pulse Rate 64 62 Respiratory Rate 29 H 19 Blood Pressure Pulse Oximetry 100 99 99 Oxygen Delivery Nasal Cannula Oxygen Flow Rate 2 Fraction of Inspired Oxygen 06/10/24 13:17 06/10/24 13:30 06/10/24 13:54 Temperature Pulse Rate 60 61 Respiratory Rate 27 H 12 Blood Pressure 171/64 H Pulse Oximetry 100 Oxygen Delivery Oxygen Flow Rate Fraction of Inspired Oxygen 06/10/24 14:00 06/10/24 14:16 06/10/24 15:01 Temperature Pulse Rate 61 68 57 L Respiratory Rate 18 17 19 Blood Pressure Pulse Oximetry 100 97 Oxygen Delivery Oxygen Flow Rate Fraction of Inspired Oxygen 06/10/24 15:15 06/10/24 18:39 06/10/24 18:45 Temperature Pulse Rate 63 69 66 Respiratory Rate 22 H 15 22 H Blood Pressure 150/56 H 155/80 H 161/67 H Pulse Oximetry 100 94 93 Oxygen Delivery Oxygen Flow Rate Fraction of Inspired Oxygen 06/10/24 19:00 06/10/24 19:15 06/10/24 19:55 Temperature 36.6 C Pulse Rate 63 64 94 Respiratory Rate 23 H 24 H 24 H Blood Pressure 167/68 H 161/68 H 156/64 H Pulse Oximetry 94 93 94 Oxygen Delivery Oxygen Flow Rate Fraction of Inspired Oxygen 06/10/24 19:56 06/10/24 20:38 06/10/24 20:54 Temperature Pulse Rate 60 64 59 L Respiratory Rate Blood Pressure 151/64 H 156/61 H 141/67 H Pulse Oximetry 94 Oxygen Delivery Oxygen Flow Rate Fraction of Inspired Oxygen 06/10/24 21:02 06/10/24 21:08 06/10/24 21:23 Temperature Pulse Rate 60 56 L 58 L Respiratory Rate Blood Pressure 102/61 109/53 L 110/57 L Pulse Oximetry Oxygen Delivery Oxygen Flow Rate Fraction of Inspired Oxygen 06/10/24 21:02 06/10/24 22:02 06/10/24 22:02 Temperature Pulse Rate 57 L 60 Respiratory Rate Blood Pressure 109/53 L 144/64 H 144/64 H Pulse Oximetry 90 Oxygen Delivery Oxygen Flow Rate Fraction of Inspired Oxygen 06/10/24 22:21 06/10/24 20:00 06/10/24 20:00 Temperature Pulse Rate 59 L 64 Respiratory Rate Blood Pressure 150/67 H Pulse Oximetry Oxygen Delivery Room Air Oxygen Flow Rate Fraction of Inspired Oxygen 06/10/24 22:00 06/10/24 20:35 06/10/24 21:35 Temperature Pulse Rate 59 L 63 56 L Respiratory Rate 20 24 H Blood Pressure 156/61 H 139/67 Pulse Oximetry 94 94 Oxygen Delivery Oxygen Flow Rate Fraction of Inspired Oxygen 06/10/24 22:20 06/10/24 22:45 06/10/24 23:04 Temperature Pulse Rate 60 59 L Respiratory Rate 21 H 21 H Blood Pressure 150/67 H 139/62 140/69 Pulse Oximetry 98 97 Oxygen Delivery Oxygen Flow Rate Fraction of Inspired Oxygen 06/10/24 21:55 06/11/24 00:13 06/11/24 00:00 Temperature 36.5 C Pulse Rate 60 58 L 56 L Respiratory Rate 22 H 20 Blood Pressure 144/64 H 129/67 129/67 Pulse Oximetry 96 97 Oxygen Delivery Oxygen Flow Rate Fraction of Inspired Oxygen 06/11/24 01:10 06/11/24 00:00 06/11/24 00:00 Temperature Pulse Rate 56 L Respiratory Rate Blood Pressure 153/70 H Pulse Oximetry 96 Oxygen Delivery Nasal Cannula Oxygen Flow Rate 2 Fraction of Inspired Oxygen 06/10/24 23:15 06/11/24 00:30 06/10/24 23:50 Temperature Pulse Rate 60 58 L 59 L Respiratory Rate 21 H 25 H 23 H Blood Pressure 145/65 H 152/66 H 139/71 Pulse Oximetry 97 97 97 Oxygen Delivery Oxygen Flow Rate Fraction of Inspired Oxygen 06/11/24 01:35 06/11/24 02:00 06/11/24 02:00 Temperature Pulse Rate 60 61 60 Respiratory Rate 25 H Blood Pressure 154/69 H 152/63 H Pulse Oximetry 96 Oxygen Delivery Oxygen Flow Rate Fraction of Inspired Oxygen 06/11/24 02:03 06/11/24 02:33 06/11/24 02:00 Temperature Pulse Rate 62 60 Respiratory Rate 26 H Blood Pressure 152/63 H 145/71 H 152/63 H Pulse Oximetry 97 Oxygen Delivery Oxygen Flow Rate Fraction of Inspired Oxygen 06/11/24 02:56 06/11/24 03:06 06/11/24 04:01 Temperature Pulse Rate 61 65 58 L Respiratory Rate Blood Pressure 150/60 H 145/83 H 141/67 H Pulse Oximetry Oxygen Delivery Oxygen Flow Rate Fraction of Inspired Oxygen 06/11/24 04:00 06/11/24 04:34 06/11/24 04:00 Temperature 36.8 C Pulse Rate 62 60 Respiratory Rate 22 H Blood Pressure 137/66 Pulse Oximetry 96 97 Oxygen Delivery Nasal Cannula Oxygen Flow Rate 2 Fraction of Inspired Oxygen 06/10/24 22:00 06/11/24 06:00 06/11/24 06:00 Temperature Pulse Rate 59 L 59 L Respiratory Rate Blood Pressure 142/66 H Pulse Oximetry 96 Oxygen Delivery Nasal Cannula Oxygen Flow Rate 2 Fraction of Inspired Oxygen 06/11/24 06:00 06/11/24 07:53 06/11/24 08:00 Temperature 36.9 C Pulse Rate 59 L 61 Respiratory Rate 23 H 18 Blood Pressure 142/66 H 144/68 H Pulse Oximetry 95 96 96 Oxygen Delivery Nasal Cannula Oxygen Flow Rate 2 Fraction of Inspired Oxygen 06/11/24 07:00 06/11/24 08:00 06/11/24 08:00 Temperature 36.9 C Pulse Rate 61 61 61 Respiratory Rate 26 H 18 Blood Pressure 143/64 H 144/68 H 143/72 H Pulse Oximetry 93 96 Oxygen Delivery Oxygen Flow Rate Fraction of Inspired Oxygen 06/11/24 08:15 06/11/24 08:30 06/11/24 09:00 Temperature Pulse Rate 61 65 62 Respiratory Rate Blood Pressure 143/72 H 145/69 H 127/64 Pulse Oximetry Oxygen Delivery Oxygen Flow Rate Fraction of Inspired Oxygen 06/11/24 09:00 Temperature Pulse Rate 62 Respiratory Rate 24 H Blood Pressure 127/64 Pulse Oximetry 91 Oxygen Delivery Oxygen Flow Rate Fraction of Inspired Oxygen Intake/Output Intake/Output: Intake & Output 06/08/24 06/09/24 06/10/24 06/11/24 23:59 23:59 23:59 23:59 Intake Total 7.6 238.6 Output Total 200 Balance 7.6 38.6 Meds/Results Medications: Active Medications Generic Name Dose Route Start Last Admin Trade Name Freq PRN Reason Stop Dose Admin Acetaminophen 650 mg 06/10/24 19:19 Acetaminophen 325 Mg Tablet PO Q4H PRN Mild Pain (1-3) or Fever Aspirin 81 mg 06/11/24 09:00 Aspirin 81 Mg [facility] Atorvastatin Calcium 40 mg 06/11/24 00:25 06/11/24 00:38 Atorvastatin 40 Mg Tablet PO Not Given DAILY [facility] [place] Nitroglycerin/Dextrose 50 mg in 250 mls @ 6 mls/hr 06/10/24 20:30 06/11/24 09:00 Nitroglycerin In 5% Dextrose 50 Mg IV CONT 20 mcg/min .Q24H WADE 6 mls/hr Titration Protocol 20 MCG/MIN Losartan Potassium 25 mg 06/11/24 09:00 Losartan Potassium 25 Mg Tablet PO DAILY [facility] [place] Metoprolol Tartrate 25 mg 06/10/24 14:50 06/10/24 22:45 Metoprolol Tartrate 25 Mg Tablet PO Not Given Q12HR [facility] [place] Morphine Sulfate 2 mg 06/10/24 19:19 06/11/24 08:44 Morphine Sulfate (*Crx) 2 Mg/Ml Inj IV PUSH 2 mg Q4H PRN Administration Pain Rated 7-10 Ondansetron HCl 4 mg 06/11/24 09:02 Ondansetron Inj 4 Mg/2 Ml Vial IV PUSH Q4H PRN Nausea And Vomiting Pantoprazole Sodium 40 mg 06/11/24 09:00 Pantoprazole 40 Mg Tablet PO QAM [facility] [place] Perflutren Lipid Microsphere 0 ml 06/10/24 14:48 Perflutren Lipid Microspheres 1.5 Ml Vial Diluted To 10 Ml Total Volume IV PUSH 06/13/24 14:50 ONCE PRN adequate visualization Protocol Perflutren Lipid Microsphere 0 ml 06/10/24 18:06 Perflutren Lipid Microspheres 1.5 Ml Vial Diluted To 10 Ml Total Volume IV PUSH 06/13/24 18:06 ONCE PRN adequate visualization Protocol Ticagrelor 90 mg 06/11/24 09:00 Ticagrelor 90 Mg Tablet PO Q12HR [facility] [place] Vitamin D 1,000 units 06/11/24 09:00 Cholecalciferol 1,000 Units Tablet PO DAILY [facility] [place] Radiology Results: ITS Impressions Chest X-Ray 06/10/24 13:23 IMPRESSION: 1. Cardiomegaly. Chest/Abdomen/Pelvis CTA 06/10/24 14:47 IMPRESSION: Thoracic and abdominal aortic atherosclerosis. No thoracic or abdominal aortic aneurysm or dissection Cardiomegaly Cholelithiasis Labs Labs: Laboratory Results - last 24 hr 06/10/24 06/10/24 06/10/24 13:08 15:31 18:55 WBC 11.7 H RBC 4.99 Hgb 14.5 Hct 44.0 MCV 88.2 MCH 29.1 MCHC 33.0 RDW 13.8 Plt Count 234 MPV 10.9 H Immature Gran % (Auto) 0.6 H Neut % (Auto) 77.4 H Lymph % (Auto) 12.9 L [place] % (Auto) 7.6 Eos % (Auto) 1.0 Baso % (Auto) 0.5 Lymph # (Auto) 1.51 [place] # (Auto) 0.9 H Eos # (Auto) 0.1 Baso # (Auto) 0.1 Abs Immat Gran (auto) 0.07 H Absolute Neuts (auto) 9.0 H Absolute Nucleated RBC 0.000 Nucleated RBC % 0.0 PT 12.7 INR 0.9 APTT 23.3 Sodium 137 Potassium 4.0 Chloride 103 Carbon Dioxide 27 Anion Gap 7 BUN 23 H Creatinine 0.50 L Estim Creat Clear Calc 71 Estimated GFR > 60 Glucose 127 H Hemoglobin A1c 5.9 H Calcium 9.1 Total Bilirubin 1.0 AST 66 H ALT 31 Alkaline Phosphatase 79 Troponin I 3.180 H* 3.330 H* Total Protein 8.0 Albumin 4.4 Triglycerides Cholesterol LDL Cholesterol Direct HDL Direct Lipase 77 Nasal MRSA (PCR) Not detected 06/10/24 06/10/24 06/10/24 19:01 19:02 19:10 WBC 12.0 H RBC 4.63 Hgb 13.6 Hct 40.1 MCV 86.6 MCH 29.4 MCHC 33.9 RDW 13.8 Plt Count 206 MPV 11.4 H Immature Gran % (Auto) 0.4 Neut % (Auto) 85.3 H Lymph % (Auto) 7.9 L [place] % (Auto) 5.8 Eos % (Auto) 0.2 Baso % (Auto) 0.4 Lymph # (Auto) 0.95 [place] # (Auto) 0.7 H Eos # (Auto) 0.0 Baso # (Auto) 0.1 Abs Immat Gran (auto) 0.05 H Absolute Neuts (auto) 10.3 H Absolute Nucleated RBC 0.000 Nucleated RBC % 0.0 PT 43.4 H D INR 4.5 APTT 92.6 H Sodium Potassium Chloride Carbon Dioxide Anion Gap BUN Creatinine Estim Creat Clear Calc Estimated GFR Glucose Hemoglobin A1c Calcium Total Bilirubin AST ALT Alkaline Phosphatase Troponin I 3.540 H* Total Protein Albumin Triglycerides 112 Cholesterol 196 LDL Cholesterol Direct 95 HDL Direct 56 Lipase Nasal MRSA (PCR) 06/10/24 06/11/24 22:51 04:16 WBC 12.0 H RBC 4.30 Hgb 12.9 Hct 37.2 MCV 86.5 MCH 30.0 MCHC 34.7 RDW 13.9 Plt Count 198 MPV 11.0 H Immature Gran % (Auto) 0.5 Neut % (Auto) 85.1 H Lymph % (Auto) 6.8 L [place] % (Auto) 7.2 Eos % (Auto) 0.1 Baso % (Auto) 0.3 Lymph # (Auto) 0.81 L [place] # (Auto) 0.9 H Eos # (Auto) 0.0 Baso # (Auto) 0.0 Abs Immat Gran (auto) 0.06 H Absolute Neuts (auto) 10.2 H Absolute Nucleated RBC 0.000 Nucleated RBC % 0.0 PT INR APTT 45.3 H Sodium 138 Potassium 4.0 Chloride 107 Carbon Dioxide 23 Anion Gap 8 BUN 15 D Creatinine 0.40 L Estim Creat Clear Calc 88 Estimated GFR > 60 Glucose 144 H Hemoglobin A1c Calcium 8.4 Total Bilirubin 1.4 H AST 126 H ALT 33 Alkaline Phosphatase 76 Troponin I 5.790 H* D 10.500 H* D Total Protein 7.0 Albumin 3.6 Triglycerides Cholesterol LDL Cholesterol Direct HDL Direct Lipase Nasal MRSA (PCR)
[2024-06-11] MEDS: PERFLUTREN LIPID MICROSPHERES 1.5 ML VIAL DILUTED TO 10 ML TOTAL VOLUME IV PUSH (10:48)
[2024-06-11] MEDS: PANTOPRAZOLE 40 MG TABLET PO (11:05)
[2024-06-11] MEDS: METOPROLOL TARTRATE 25 MG TABLET PO ×2 (11:06→21:41)
[2024-06-11] MEDS: CHOLECALCIFEROL 1,000 UNITS TABLET 1000 UNITS PO (11:06)
[2024-06-11] MEDS: ASPIRIN 81 MG ENTERIC TABLET PO (11:06)
[2024-06-11] MEDS: LOSARTAN POTASSIUM 25 MG TABLET PO (11:06)
[2024-06-11] MEDS: TICAGRELOR 90 MG TABLET PO ×2 (11:06→21:41)
[2024-06-11] MEDS: ATORVASTATIN 40 MG TABLET PO (11:06)
--- NOTE | 2024-06-11 12:00 | PC.NURSE ---
Maria Eugenia received from [facility] and placed on pt's chart.
--- NOTE | 2024-06-11 17:01 | P.PNIM_ITS ---
Progress Note: A&P Assessment and Plan (1) Acute ST elevation myocardial infarction (STEMI) of inferior wall: Code(s): I21.19 - ST elevation (STEMI) myocardial infarction involving other coronary artery of inferior wall Status: Acute Assessment and Plan: Patient with presents with upper back for the past few days. Chest/Abdomen/Pelvis CTA was negative for PE and for thoracic and abdominal aortic atherosclerosis, aneurysm or dissection. EKG showed nonspecific T-wave abnormalities and CP was treated with NTG. Repeat EKG however showed acute inferior STEMI and biological lab technician was activated Acute STEMI with 100% occlusion mid-distal LCX status post balloon angioplasty and stenting of totally occluded mid-distal left circumflex artery, aspiration thrombectomy and intracoronary injection with modest congregation in the flow in the distal vessel. Also with diffuse 70-80% stenosis ostial-proximal segment of OM1 branch; diffuse 50-60% stenosis mid LAD; diffuse 70% stenosis proximal segment of major diagonal branch Echo showing normal LV size, akinesis of the basal inferolateral, basal inferior septal, and basal inferior milan, systolic fxn preserved (EF 50-55%) and moderate MR. Patient was weaned of heparin drip and Integrilin. Remains on NTG drip due to persistent chest pain P.r.n. morphine available. Continue aspirin, Brilinta, Lipitor, Losartan, Metoprolol Appreciate Cardiology input (2) Hypertension: Code(s): I10 - Essential (primary) hypertension Status: Acute Assessment and Plan: Patient's blood pressure was reviewed on 06/11 Blood pressure remains well controlled. Will continue to monitor (3) Mixed hyperlipidemia: Code(s): E78.2 - Mixed hyperlipidemia Status: Acute Assessment and Plan: AST continues to rise o/w LFTs normal. LDL 95, HDL 56, TG [address] 196[address] Continue Atorvastatin Monitor LFTs (4) Nausea & vomiting: Code(s): R11.2 - Nausea with vomiting, unspecified Status: Acute Assessment and Plan: Related to above. P.r.n. Zofran available Continue clear liquid diet Plan DVT prophylaxis - Lovenox Code Status - Full Code Subjective Date/time seen: 06/11/24 17:01 Interval history: 79yo female with HLD who initially presented as the late presentation STEMI. Feels better after morphine. She is off integrilin and heparin drips. NTG drip weaned off earlier but she had CP 3/10 so NTG resumed. Continued to have CP up 5/10 and morphine given. CP back down to 1-2/10. She is having nausea and vomiting but able to tolerate some oral intake. No abd pain. Exam Narrative: AF 98.7 138/66 59 30 92% ra Gen - NARD Chest - left base inspiratory crackles o/w afew scattered rhonchi CV - RRR S1/S2; Tele showing no significant dysrhythmias. Abd - Soft, NT/ND, Positive BS Ext - No pedal edema, 2+ DP pulses Neuro - Alert and oriented. Nonfocal exam. Psych - Nml mood and affect Skin - Warm and dry Objective Data Vital Signs Vital Signs: Vital Signs - 24 hr 06/10/24 18:39 06/10/24 18:45 06/10/24 19:00 Temperature Pulse Rate 69 66 63 Respiratory Rate 15 22 H 23 H Blood Pressure 155/80 H 161/67 H 167/68 H Pulse Oximetry 94 93 94 Oxygen Delivery Oxygen Flow Rate Fraction of Inspired Oxygen 06/10/24 19:15 06/10/24 19:55 06/10/24 19:56 Temperature 97.9 F Pulse Rate 64 94 60 Respiratory Rate 24 H 24 H Blood Pressure 161/68 H 156/64 H 151/64 H Pulse Oximetry 93 94 94 Oxygen Delivery Oxygen Flow Rate Fraction of Inspired Oxygen 06/10/24 20:38 06/10/24 20:54 06/10/24 21:02 Temperature Pulse Rate 64 59 L 60 Respiratory Rate Blood Pressure 156/61 H 141/67 H 102/61 Pulse Oximetry Oxygen Delivery Oxygen Flow Rate Fraction of Inspired Oxygen 06/10/24 21:08 06/10/24 21:23 06/10/24 21:02 Temperature Pulse Rate 56 L 58 L 57 L Respiratory Rate Blood Pressure 109/53 L 110/57 L 109/53 L Pulse Oximetry 90 Oxygen Delivery Oxygen Flow Rate Fraction of Inspired Oxygen 06/10/24 22:02 06/10/24 22:02 06/10/24 22:21 Temperature Pulse Rate 60 59 L Respiratory Rate Blood Pressure 144/64 H 144/64 H 150/67 H Pulse Oximetry Oxygen Delivery Oxygen Flow Rate Fraction of Inspired Oxygen 06/10/24 20:00 06/10/24 20:00 06/10/24 22:00 Temperature Pulse Rate 64 59 L Respiratory Rate Blood Pressure Pulse Oximetry Oxygen Delivery Room Air Oxygen Flow Rate Fraction of Inspired Oxygen 06/10/24 20:35 06/10/24 21:35 06/10/24 22:20 Temperature Pulse Rate 63 56 L 60 Respiratory Rate 20 24 H 21 H Blood Pressure 156/61 H 139/67 150/67 H Pulse Oximetry 94 94 98 Oxygen Delivery Oxygen Flow Rate Fraction of Inspired Oxygen 06/10/24 22:45 06/10/24 23:04 06/10/24 21:55 Temperature Pulse Rate 59 L 60 Respiratory Rate 21 H 22 H Blood Pressure 139/62 140/69 144/64 H Pulse Oximetry 97 96 Oxygen Delivery Oxygen Flow Rate Fraction of Inspired Oxygen 06/11/24 00:13 06/11/24 00:00 06/11/24 01:10 Temperature 97.7 F Pulse Rate 58 L 56 L Respiratory Rate 20 Blood Pressure 129/67 129/67 153/70 H Pulse Oximetry 97 Oxygen Delivery Oxygen Flow Rate Fraction of Inspired Oxygen 06/11/24 00:00 06/11/24 00:00 06/10/24 23:15 Temperature Pulse Rate 56 L 60 Respiratory Rate 21 H Blood Pressure 145/65 H Pulse Oximetry 96 97 Oxygen Delivery Nasal Cannula Oxygen Flow Rate 2 Fraction of Inspired Oxygen 06/11/24 00:30 06/10/24 23:50 06/11/24 01:35 Temperature Pulse Rate 58 L 59 L 60 Respiratory Rate 25 H 23 H 25 H Blood Pressure 152/66 H 139/71 154/69 H Pulse Oximetry 97 97 96 Oxygen Delivery Oxygen Flow Rate Fraction of Inspired Oxygen 06/11/24 02:00 06/11/24 02:00 06/11/24 02:03 Temperature Pulse Rate 61 60 Respiratory Rate Blood Pressure 152/63 H 152/63 H Pulse Oximetry Oxygen Delivery Oxygen Flow Rate Fraction of Inspired Oxygen 06/11/24 02:33 06/11/24 02:00 06/11/24 02:56 Temperature Pulse Rate 62 60 61 Respiratory Rate 26 H Blood Pressure 145/71 H 152/63 H 150/60 H Pulse Oximetry 97 Oxygen Delivery Oxygen Flow Rate Fraction of Inspired Oxygen 06/11/24 03:06 06/11/24 04:01 06/11/24 04:00 Temperature Pulse Rate 65 58 L Respiratory Rate Blood Pressure 145/83 H 141/67 H Pulse Oximetry 96 Oxygen Delivery Nasal Cannula Oxygen Flow Rate 2 Fraction of Inspired Oxygen 06/11/24 04:34 06/11/24 04:00 06/10/24 22:00 Temperature 98.3 F Pulse Rate 62 60 Respiratory Rate 22 H Blood Pressure 137/66 Pulse Oximetry 97 96 Oxygen Delivery Nasal Cannula Oxygen Flow Rate 2 Fraction of Inspired Oxygen 06/11/24 06:00 06/11/24 06:00 06/11/24 06:00 Temperature Pulse Rate 59 L 59 L 59 L Respiratory Rate 23 H Blood Pressure 142/66 H 142/66 H Pulse Oximetry 95 Oxygen Delivery Oxygen Flow Rate Fraction of Inspired Oxygen 06/11/24 07:53 06/11/24 08:00 06/11/24 07:00 Temperature 98.5 F Pulse Rate 61 61 Respiratory Rate 18 26 H Blood Pressure 144/68 H 143/64 H Pulse Oximetry 96 96 93 Oxygen Delivery Nasal Cannula Oxygen Flow Rate 2 Fraction of Inspired Oxygen 06/11/24 08:00 06/11/24 08:00 06/11/24 08:15 Temperature 98.5 F Pulse Rate 61 61 61 Respiratory Rate 18 Blood Pressure 144/68 H 143/72 H 143/72 H Pulse Oximetry 96 Oxygen Delivery Oxygen Flow Rate Fraction of Inspired Oxygen 06/11/24 08:30 06/11/24 09:00 06/11/24 09:00 Temperature Pulse Rate 65 62 62 Respiratory Rate 24 H Blood Pressure 145/69 H 127/64 127/64 Pulse Oximetry 91 Oxygen Delivery Oxygen Flow Rate Fraction of Inspired Oxygen 06/11/24 10:00 06/11/24 10:00 06/11/24 08:00 Temperature 98.2 F Pulse Rate 69 65 61 Respiratory Rate 23 H 18 Blood Pressure 138/77 138/77 Pulse Oximetry 93 96 Oxygen Delivery Room Air Oxygen Flow Rate Fraction of Inspired Oxygen 06/11/24 10:00 06/11/24 08:00 06/11/24 10:00 Temperature 98.2 F Pulse Rate 65 61 65 Respiratory Rate 23 H Blood Pressure 138/77 Pulse Oximetry 93 Oxygen Delivery Oxygen Flow Rate Fraction of Inspired Oxygen 06/11/24 11:06 06/11/24 11:06 06/11/24 11:00 Temperature 98.4 F Pulse Rate 65 65 67 Respiratory Rate 24 H Blood Pressure 142/70 H 142/70 H Pulse Oximetry 94 Oxygen Delivery Oxygen Flow Rate Fraction of Inspired Oxygen 06/11/24 11:00 06/11/24 11:21 06/11/24 11:15 Temperature 98.4 F 98.1 F Pulse Rate 67 64 64 Respiratory Rate 24 H 19 Blood Pressure 142/70 H 139/74 139/74 Pulse Oximetry 94 94 Oxygen Delivery Oxygen Flow Rate Fraction of Inspired Oxygen 06/11/24 11:33 06/11/24 11:45 06/11/24 12:03 Temperature 98.4 F Pulse Rate 63 69 65 Respiratory Rate 28 H 18 Blood Pressure 146/66 H 144/66 H 148/74 H Pulse Oximetry 92 92 Oxygen Delivery Oxygen Flow Rate Fraction of Inspired Oxygen 06/11/24 12:15 06/11/24 11:15 06/11/24 12:35 Temperature 98.5 F 98.1 F Pulse Rate 65 60 Respiratory Rate 22 H 19 Blood Pressure 148/74 H 139/74 143/67 H Pulse Oximetry 94 94 Oxygen Delivery Oxygen Flow Rate Fraction of Inspired Oxygen 06/11/24 12:15 06/11/24 12:45 06/11/24 12:00 Temperature 98.5 F Pulse Rate 66 62 65 Respiratory Rate 20 17 Blood Pressure 127/60 149/59 H Pulse Oximetry 93 94 Oxygen Delivery Room Air Oxygen Flow Rate Fraction of Inspired Oxygen 06/11/24 12:00 06/11/24 12:45 06/11/24 13:45 Temperature Pulse Rate 65 62 60 Respiratory Rate 27 H Blood Pressure 149/59 H 137/67 Pulse Oximetry 93 Oxygen Delivery Oxygen Flow Rate Fraction of Inspired Oxygen 06/11/24 13:45 06/11/24 13:54 06/11/24 13:45 Temperature 98.5 F 98.5 F Pulse Rate 62 63 62 Respiratory Rate 28 H 28 H Blood Pressure 137/67 137/67 Pulse Oximetry 93 93 Oxygen Delivery Oxygen Flow Rate Fraction of Inspired Oxygen 06/11/24 14:02 06/11/24 14:45 06/11/24 15:04 Temperature 98.5 F Pulse Rate 64 64 64 Respiratory Rate 20 Blood Pressure 140/64 135/58 L 135/62 Pulse Oximetry 92 Oxygen Delivery Oxygen Flow Rate Fraction of Inspired Oxygen 06/11/24 15:45 06/11/24 15:57 06/11/24 16:30 Temperature 98.7 F 98.7 F Pulse Rate 65 59 L 59 L Respiratory Rate 30 H 30 H Blood Pressure 186/78 H 142/57 H 138/66 Pulse Oximetry 92 92 Oxygen Delivery Oxygen Flow Rate Fraction of Inspired Oxygen 06/11/24 16:00 06/11/24 16:00 Temperature 98.7 F Pulse Rate 59 L 63 Respiratory Rate 30 H 29 H Blood Pressure 138/66 Pulse Oximetry 92 93 Oxygen Delivery Room Air Oxygen Flow Rate Fraction of Inspired Oxygen Intake/Output Intake/Output: Intake & Output 06/08/24 06/09/24 06/10/24 06/11/24 23:59 23:59 23:59 23:59 Intake Total 7.6 347.3 Output Total 350 Balance 7.6 -2.7 Meds/Results Medications: Active Medications Generic Name Dose Route Start Last Admin Trade Name Freq PRN Reason Stop Dose Admin Acetaminophen 650 mg 06/10/24 19:19 Acetaminophen 325 Mg Tablet PO Q4H PRN Mild Pain (1-3) or Fever Aspirin 81 mg 06/11/24 09:00 06/11/24 11:06 Aspirin 81 Mg Enteric Tablet PO 81 mg QAM WADE Administration Atorvastatin Calcium 40 mg 06/11/24 00:25 06/11/24 11:06 Atorvastatin 40 Mg Tablet PO 40 mg DAILY WADE Administration Nitroglycerin/Dextrose 50 mg in 250 mls @ 4.5 mls/hr 06/10/24 20:30 06/11/24 15:57 Nitroglycerin In 5% Dextrose 50 Mg IV CONT 15 mcg/min .Q24H WADE 4.5 mls/hr Titration Protocol 15 MCG/MIN Losartan Potassium 25 mg 06/11/24 09:00 06/11/24 11:06 Losartan Potassium 25 Mg Tablet PO 25 mg DAILY WADE Administration Metoprolol Tartrate 25 mg 06/10/24 14:50 06/11/24 11:06 Metoprolol Tartrate 25 Mg Tablet PO 25 mg Q12HR WADE Administration Morphine Sulfate 2 mg 06/10/24 19:19 06/11/24 16:19 Morphine Sulfate (*Crx) 2 Mg/Ml Inj IV PUSH 2 mg Q4H PRN Administration Pain Rated 7-10 Ondansetron HCl 4 mg 06/11/24 09:02 06/11/24 12:17 Ondansetron Inj 4 Mg/2 Ml Vial IV PUSH 4 mg Q4H PRN Administration Nausea And Vomiting Pantoprazole Sodium 40 mg 06/11/24 09:00 06/11/24 11:05 Pantoprazole 40 Mg Tablet PO 40 mg QAM WADE Administration Perflutren Lipid Microsphere 0 ml 06/10/24 14:48 Perflutren Lipid Microspheres 1.5 Ml Vial Diluted To 10 Ml Total Volume IV PUSH 06/13/24 14:50 ONCE PRN adequate visualization Protocol Perflutren Lipid Microsphere 0 ml 06/10/24 18:06 Perflutren Lipid Microspheres 1.5 Ml Vial Diluted To 10 Ml Total Volume IV PUSH 06/13/24 18:06 ONCE PRN adequate visualization Protocol Ticagrelor 90 mg 06/11/24 09:00 06/11/24 11:06 Ticagrelor 90 Mg Tablet PO 90 mg Q12HR WADE Administration Vitamin D 1,000 units 06/11/24 09:00 06/11/24 11:06 Cholecalciferol 1,000 Units Tablet PO 1,000 units DAILY WADE Administration Radiology Results: ITS Impressions Chest X-Ray 06/10/24 13:23 IMPRESSION: 1. Cardiomegaly. Chest/Abdomen/Pelvis CTA 06/10/24 14:47 IMPRESSION: Thoracic and abdominal aortic atherosclerosis. No thoracic or abdominal aortic aneurysm or dissection Cardiomegaly Cholelithiasis Labs Labs: Laboratory Results - last 24 hr 06/10/24 06/10/24 06/10/24 13:08 18:55 19:01 WBC 12.0 H RBC 4.63 Hgb 13.6 Hct 40.1 MCV 86.6 MCH 29.4 MCHC 33.9 RDW 13.8 Plt Count 206 MPV 11.4 H Immature Gran % (Auto) 0.4 Neut % (Auto) 85.3 H Lymph % (Auto) 7.9 L [place] % (Auto) 5.8 Eos % (Auto) 0.2 Baso % (Auto) 0.4 Lymph # (Auto) 0.95 [place] # (Auto) 0.7 H Eos # (Auto) 0.0 Baso # (Auto) 0.1 Abs Immat Gran (auto) 0.05 H Absolute Neuts (auto) 10.3 H Absolute Nucleated RBC 0.000 Nucleated RBC % 0.0 PT INR APTT Sodium Potassium Chloride Carbon Dioxide Anion Gap BUN Creatinine Estim Creat Clear Calc Estimated GFR Glucose Hemoglobin A1c 5.9 H Calcium Total Bilirubin AST ALT Alkaline Phosphatase Troponin I Total Protein Albumin Triglycerides Cholesterol LDL Cholesterol Direct HDL Direct Nasal MRSA (PCR) Not detected 06/10/24 06/10/24 06/10/24 19:02 19:10 22:51 WBC RBC Hgb Hct MCV MCH MCHC RDW Plt Count MPV Immature Gran % (Auto) Neut % (Auto) Lymph % (Auto) [place] % (Auto) Eos % (Auto) Baso % (Auto) Lymph # (Auto) [place] # (Auto) Eos # (Auto) Baso # (Auto) Abs Immat Gran (auto) Absolute Neuts (auto) Absolute Nucleated RBC Nucleated RBC % PT 43.4 H D INR 4.5 APTT 92.6 H Sodium Potassium Chloride Carbon Dioxide Anion Gap BUN Creatinine Estim Creat Clear Calc Estimated GFR Glucose Hemoglobin A1c Calcium Total Bilirubin AST ALT Alkaline Phosphatase Troponin I 3.540 H* 5.790 H* D Total Protein Albumin Triglycerides 112 Cholesterol 196 LDL Cholesterol Direct 95 HDL Direct 56 Nasal MRSA (PCR) 06/11/24 04:16 WBC 12.0 H RBC 4.30 Hgb 12.9 Hct 37.2 MCV 86.5 MCH 30.0 MCHC 34.7 RDW 13.9 Plt Count 198 MPV 11.0 H Immature Gran % (Auto) 0.5 Neut % (Auto) 85.1 H Lymph % (Auto) 6.8 L [place] % (Auto) 7.2 Eos % (Auto) 0.1 Baso % (Auto) 0.3 Lymph # (Auto) 0.81 L [place] # (Auto) 0.9 H Eos # (Auto) 0.0 Baso # (Auto) 0.0 Abs Immat Gran (auto) 0.06 H Absolute Neuts (auto) 10.2 H Absolute Nucleated RBC 0.000 Nucleated RBC % 0.0 PT INR APTT 45.3 H Sodium 138 Potassium 4.0 Chloride 107 Carbon Dioxide 23 Anion Gap 8 BUN 15 D Creatinine 0.40 L Estim Creat Clear Calc 88 Estimated GFR > 60 Glucose 144 H Hemoglobin A1c Calcium 8.4 Total Bilirubin 1.4 H AST 126 H ALT 33 Alkaline Phosphatase 76 Troponin I 10.500 H* D Total Protein 7.0 Albumin 3.6 Triglycerides Cholesterol LDL Cholesterol Direct HDL Direct Nasal MRSA (PCR)
[2024-06-12] VITALS (19 sets, daily range): BP systolic 100–149; BP diastolic 39–73; PULSE 60–78; RESP 18–34; TEMP 36.5–37; O2SAT 90–97
[2024-06-12 04:47] LABS: Basophils Percent Auto 0.1 % (0.2-1.2); Hematocrit 38.3 % (37.0-47.0); Hemoglobin 12.9 g/dL (12.0-15.0); Immature Granulocyte Absolute 0.08 K/mm3 (0.00-0.031); Immature Granulocyte Percent A 0.5 % (0-0.5); Lymphocytes Absolute Auto 0.64 K/mm3 (0.9-3.2); Lymphocytes Percent Auto 3.9 % (18.3-44.2); Mean Corpuscular HGB Conc 33.7 g/dl (32-36); Mean Corpuscular Hemoglobin 29.5 pg (26-34); Mean Corpuscular Volume 87.4 fl (80-100); Monocytes Absolute Auto 1.2 K/mm3 (0.1-0.6); Monocytes Percent Auto 7.5 % (2.6-8.5); Neutrophils Absolute Auto 14.5 K/mm3 (1.3-6.7); Platelet Count Result 201 k/mm3 (150-375); Red Blood Count 4.38 M/mm3 (4.2-5.4); White Blood Count 16.4 K/mm3 (4.5-10.0)
[2024-06-12 04:59] LABS: Alanine Aminotransferase 41 U/L (6-35); Albumin Level 3.6 g/dL (3.5-5.1); Alkaline Phosphatase 80 U/L (38-126); Anion Gap 6 mmol/L (4-12); Aspartate Amino Transferase 187 U/L (14-36); Bilirubin,Total 1.6 mg/dL (0.2-1.3); Blood Urea Nitrogen 16 mg/dL (7-17); Calcium 8.7 mg/dL (8.4-10.2); Carbon Dioxide 25 mmol/L (22-30); Chloride 105 mmol/L (98-107); Estimated CRCL calculation 61 ml/min; Estimated Glomerular Filt Rate > 60; Glucose 152 mg/dL (65-110); Potassium 4.1 mmol/L (3.4-5.0); Sodium 136 mmol/L (137-145)
[2024-06-12 05:02] LABS: Magnesium 2.2 mg/dL (1.6-2.3)
[2024-06-12] MEDS: MORPHINE SULFATE (*CRX) 2 MG/ML INJ IV PUSH ×2 (05:09→10:57)
--- NOTE | 2024-06-12 05:23 | ECG_ITS ---
Test Date: 2024-06-12 05:31:46 Measurements Intervals [place] Rate: 74 P: 28 MI: 153 QRS: 21 QRSD: 72 T: 24 QT: 319 QTc: 354 Interpretive Statements SINUS RHYTHM NONSPECIFIC ST & T-WAVE ABNORMALITY Compared to ECG 06/10/2024 20:30:44 ST ELEVATION IN INFERIOR LEADS NO LONGER PRESENT Electronically Signed On 06-12-2024 09:45:18 CDT by Tere Schmitt M.D.
[2024-06-12] MEDS: CHOLECALCIFEROL 1,000 UNITS TABLET 1000 UNITS PO (08:29)
[2024-06-12] MEDS: ENOXAPARIN 40 MG/0.4 ML SYRINGE SUB-Q (08:29)
[2024-06-12] MEDS: LOSARTAN POTASSIUM 25 MG TABLET PO (08:30)
[2024-06-12] MEDS: METOPROLOL TARTRATE 25 MG TABLET PO ×2 (08:30→20:48)
[2024-06-12] MEDS: ATORVASTATIN 40 MG TABLET PO (08:30)
[2024-06-12] MEDS: ASPIRIN 81 MG ENTERIC TABLET PO (08:30)
[2024-06-12] MEDS: TICAGRELOR 90 MG TABLET PO ×2 (08:30→20:48)
[2024-06-12] MEDS: PANTOPRAZOLE 40 MG TABLET PO (08:31)
[2024-06-12] MEDS: ONDANSETRON INJ 4 MG/2 ML VIAL IV PUSH (08:45)
--- NOTE | 2024-06-12 10:49 | PM.PNCARD ---
Progress Note: A&P Assessment and Plan (1) Acute ST elevation myocardial infarction (STEMI) of inferior wall: Code(s): I21.19 - ST elevation (STEMI) myocardial infarction involving other coronary artery of inferior wall Status: Acute Assessment and Plan: Cardiac catheterization 06/10 showed: 100% thrombotic occlusion mid-distal left circumflex artery (infarct related vessel); diffuse 70-80% stenosis ostial-proximal segment of OM1 branch; diffuse 50-60% stenosis mid LAD; diffuse 70% stenosis proximal segment of major diagonal branch. Hyperdynamic LV systolic function, ejection fraction more than 75%; LVEDP elevated at 29 mmHg. Primary PCI - PTCA/stenting of mid-distal LCX using 3.0 x 30 mm and 2.5 x 10 mm Biotronik sirolimus eluting stents in an overlapping fashion (significant thrombus burden and no reflow post stenting - treated with aspiration thrombectomy, and available medications in the cardiac cath lab technologist including intracoronary eptifibatide, nitroprusside, adenosine and epinephrine with modest improvement in the distal flow). Echocardiogram 06/11 with LVEF 50-55%, akinesis of the basal inferolateral, basal inferior septal, and basal inferior milan. Moderate posteriorly directed mitral regurgitation. Completed Integrilin drip. Continue ASA 81mg once daily. Continue Brilinta 90mg BID. Continue high intensity statin. Continue Metoprolol 25mg BID. Will transition to succinate. Continue Losartan 25mg once daily. Will start Imdur as patient was requiring NTG drip post PCI for chest pain. Staged PCI of OM branch; and functional assessment of mid LAD in near future. To be done as outpatient. (2) Mixed hyperlipidemia: Code(s): E78.2 - Mixed hyperlipidemia Status: Acute Assessment and Plan: Continue high intensity statin. (3) Essential (primary) hypertension: Code(s): I10 - Essential (primary) hypertension Status: Acute Assessment and Plan: Continue Metoprolol 25mg BID. Will transition to succinate. Continue Losartan 25mg once daily. Plan Downgrade to IMU status. Recommendations and plan discussed with Amf Mechanic. Subjective Date/time seen: 06/12/24 10:49 Interval history: Reason for visit: STEMI HPI: Patient is a 79-year-old female who came to hospital because of chest pain. Patient states that she started to have chest pain 2 days ago. States that the pain has been relatively constant since that time. It is located anterior chest radiated to her back and between her shoulder blades. She does describe some numbness in her arms. Pain worsened today and worsened with activity and therefore she came to the hospital for further workup and evaluation. Again she states that her symptoms have been relatively constant over the past couple of days but again progressively worsening. She has not had any past episodes. She did state that she had some bowel movements and her symptoms did improve. She otherwise denies any recent shortness of breath, syncope, presyncope, paroxysmal nocturnal dyspnea, orthopnea, edema palpitations. Electrocardiogram shows some nonspecific ST and T-wave abnormality and initial troponin is elevated. Date of service 06/11: 79-year-old woman with hyperlipidemia who initially presented as the late presentation STEMI with no reflow phenomenon after PCI. She currently still has some chest pain as well as back pain between her scapula. Otherwise she does not have any shortness of breath. Date of service 06/12: Overall, feeling better compared to before. Off of NTG drip. Has some back pain between her scalpula. Has anterior chest pain that mostly occurs with coughing. EKG this morning with improvement in ST elevations. Review of Systems Review of Systems: All systems reviewed & are unremarkable except as noted in HPI and below (HPI) Exam Const: General: comfortable and no acute distress HENMT: Mouth: Yes moist mucous membranes Eyes: General: appearance normal, both eyes and all related structures Sclera: sclerae normal Resp: Effort & Inspection: normal respiratory effort Other: On nasal cannula Cardio: Rate: regular rate Rhythm: regular rhythm Skin: General skin exam: normal color Neuro: Speech: normal speech Psych: Mental Status: mental status grossly normal Affect: normal affect Objective Data Vital Signs Vital Signs: Vital Signs - 24 hr 06/11/24 11:06 06/11/24 11:06 06/11/24 11:00 Temperature 36.9 C Pulse Rate 65 65 67 Respiratory Rate 24 H Blood Pressure 142/70 H 142/70 H Pulse Oximetry 94 Oxygen Delivery Oxygen Flow Rate Fraction of Inspired Oxygen 06/11/24 11:00 06/11/24 11:21 06/11/24 11:15 Temperature 36.9 C 36.7 C Pulse Rate 67 64 64 Respiratory Rate 24 H 19 Blood Pressure 142/70 H 139/74 139/74 Pulse Oximetry 94 94 Oxygen Delivery Oxygen Flow Rate Fraction of Inspired Oxygen 06/11/24 11:33 06/11/24 11:45 06/11/24 12:03 Temperature 36.9 C Pulse Rate 63 69 65 Respiratory Rate 28 H 18 Blood Pressure 146/66 H 144/66 H 148/74 H Pulse Oximetry 92 92 Oxygen Delivery Oxygen Flow Rate Fraction of Inspired Oxygen 06/11/24 12:15 06/11/24 11:15 06/11/24 12:35 Temperature 36.9 C 36.7 C Pulse Rate 65 60 Respiratory Rate 22 H 19 Blood Pressure 148/74 H 139/74 143/67 H Pulse Oximetry 94 94 Oxygen Delivery Oxygen Flow Rate Fraction of Inspired Oxygen 06/11/24 12:15 06/11/24 12:45 06/11/24 12:00 Temperature 36.9 C Pulse Rate 66 62 65 Respiratory Rate 20 17 Blood Pressure 127/60 149/59 H Pulse Oximetry 93 94 Oxygen Delivery Room Air Oxygen Flow Rate Fraction of Inspired Oxygen 06/11/24 12:00 06/11/24 12:45 06/11/24 13:45 Temperature Pulse Rate 65 62 60 Respiratory Rate 27 H Blood Pressure 149/59 H 137/67 Pulse Oximetry 93 Oxygen Delivery Oxygen Flow Rate Fraction of Inspired Oxygen 06/11/24 13:45 06/11/24 13:54 06/11/24 13:45 Temperature 36.9 C 36.9 C Pulse Rate 62 63 62 Respiratory Rate 28 H 28 H Blood Pressure 137/67 137/67 Pulse Oximetry 93 93 Oxygen Delivery Oxygen Flow Rate Fraction of Inspired Oxygen 06/11/24 14:02 06/11/24 14:45 06/11/24 15:04 Temperature 36.9 C Pulse Rate 64 64 64 Respiratory Rate 20 Blood Pressure 140/64 135/58 L 135/62 Pulse Oximetry 92 Oxygen Delivery Oxygen Flow Rate Fraction of Inspired Oxygen 06/11/24 15:45 06/11/24 15:57 06/11/24 16:30 Temperature 37.1 C 37.1 C Pulse Rate 65 59 L 59 L Respiratory Rate 30 H 30 H Blood Pressure 186/78 H 142/57 H 138/66 Pulse Oximetry 92 92 Oxygen Delivery Oxygen Flow Rate Fraction of Inspired Oxygen 06/11/24 16:00 06/11/24 16:00 06/11/24 16:00 Temperature 37.1 C Pulse Rate 59 L 63 65 Respiratory Rate 30 H 29 H Blood Pressure 138/66 Pulse Oximetry 92 93 Oxygen Delivery Room Air Oxygen Flow Rate Fraction of Inspired Oxygen 06/11/24 16:58 06/11/24 17:30 06/11/24 18:00 Temperature Pulse Rate 66 62 64 Respiratory Rate Blood Pressure 118/64 131/60 Pulse Oximetry Oxygen Delivery Oxygen Flow Rate Fraction of Inspired Oxygen 06/11/24 18:00 06/11/24 17:45 06/11/24 20:09 Temperature 37.4 C Pulse Rate 64 62 64 Respiratory Rate 23 H 27 H Blood Pressure 122/81 126/70 139/65 Pulse Oximetry 95 95 Oxygen Delivery Oxygen Flow Rate Fraction of Inspired Oxygen 06/11/24 20:00 06/11/24 20:00 06/11/24 21:41 Temperature Pulse Rate 64 69 Respiratory Rate Blood Pressure Pulse Oximetry 95 Oxygen Delivery Nasal Cannula Oxygen Flow Rate 2 Fraction of Inspired Oxygen 06/11/24 22:00 06/11/24 22:00 06/11/24 20:00 Temperature Pulse Rate 72 68 64 Respiratory Rate 33 H Blood Pressure 137/86 139/65 Pulse Oximetry 94 Oxygen Delivery Oxygen Flow Rate Fraction of Inspired Oxygen 06/11/24 22:00 06/12/24 00:06 06/12/24 00:00 Temperature 37.0 C 37.0 C Pulse Rate 68 61 61 Respiratory Rate 30 H 30 H Blood Pressure 137/86 139/59 L 139/59 L Pulse Oximetry 96 96 Oxygen Delivery Oxygen Flow Rate Fraction of Inspired Oxygen 06/12/24 00:00 06/12/24 00:00 06/12/24 02:07 Temperature Pulse Rate 64 Respiratory Rate Blood Pressure 125/58 L Pulse Oximetry 96 Oxygen Delivery Nasal Cannula Oxygen Flow Rate 2 Fraction of Inspired Oxygen 06/12/24 02:00 06/12/24 04:00 06/12/24 04:00 Temperature 36.9 C Pulse Rate 64 68 70 Respiratory Rate 26 H Blood Pressure 149/59 H Pulse Oximetry 95 Oxygen Delivery Oxygen Flow Rate Fraction of Inspired Oxygen 06/12/24 04:00 06/12/24 04:00 06/12/24 06:00 Temperature 36.9 C Pulse Rate 70 70 Respiratory Rate 26 H Blood Pressure 149/59 H Pulse Oximetry 95 95 Oxygen Delivery Nasal Cannula Oxygen Flow Rate 2 Fraction of Inspired Oxygen 06/12/24 06:00 06/12/24 00:00 06/12/24 02:00 Temperature Pulse Rate 70 61 64 Respiratory Rate 29 H Blood Pressure 141/55 H 139/59 L 125/58 L Pulse Oximetry 93 Oxygen Delivery Oxygen Flow Rate Fraction of Inspired Oxygen 06/12/24 04:00 06/12/24 06:00 06/12/24 08:30 Temperature Pulse Rate 70 72 78 Respiratory Rate Blood Pressure 149/59 H 141/65 H Pulse Oximetry Oxygen Delivery Oxygen Flow Rate Fraction of Inspired Oxygen 06/12/24 09:04 06/12/24 08:00 06/12/24 08:00 Temperature 36.9 C Pulse Rate 72 72 Respiratory Rate 34 H Blood Pressure 147/69 H Pulse Oximetry 93 93 Oxygen Delivery Nasal Cannula Oxygen Flow Rate 2 Fraction of Inspired Oxygen 28 06/12/24 08:00 06/12/24 08:00 06/12/24 10:00 Temperature 36.9 C Pulse Rate 72 72 67 Respiratory Rate 34 H 34 H Blood Pressure 147/69 H Pulse Oximetry 93 93 Oxygen Delivery Nasal Cannula Oxygen Flow Rate 2 Fraction of Inspired Oxygen 06/12/24 10:00 Temperature Pulse Rate 67 Respiratory Rate 23 H Blood Pressure 128/61 Pulse Oximetry 93 Oxygen Delivery Oxygen Flow Rate Fraction of Inspired Oxygen Intake/Output Intake/Output: Intake & Output 06/09/24 06/10/24 06/11/24 06/12/24 23:59 23:59 23:59 23:59 Intake Total 7.6 533.9 150 Output Total 850 500 Balance 7.6 -316.1 -350 Meds/Results Medications: Active Medications Generic Name Dose Route Start Last Admin Trade Name Freq PRN Reason Stop Dose Admin Acetaminophen 650 mg 06/10/24 19:19 Acetaminophen 325 Mg Tablet PO Q4H PRN Mild Pain (1-3) or Fever Aspirin 81 mg 06/11/24 09:00 06/12/24 08:30 Aspirin 81 Mg Enteric Tablet PO 81 mg QAM WADE Administration Atorvastatin Calcium 40 mg 06/11/24 00:25 06/12/24 08:30 Atorvastatin 40 Mg Tablet PO 40 mg DAILY WADE Administration Enoxaparin Sodium 40 mg 06/12/24 09:00 06/12/24 08:29 Enoxaparin 40 Mg/0.4 Ml Syringe SUB-Q 40 mg DAILY WADE Administration Isosorbide Mononitrate 30 mg 06/12/24 10:30 Isosorbide Mononitrate 30 Mg Tab.Er.24h PO QAM WADE Losartan Potassium 25 mg 06/11/24 09:00 06/12/24 08:30 Losartan Potassium 25 Mg Tablet PO 25 mg DAILY WADE Administration Metoprolol Tartrate 25 mg 06/10/24 14:50 06/12/24 08:30 Metoprolol Tartrate 25 Mg Tablet PO 25 mg Q12HR WADE Administration Morphine Sulfate 2 mg 06/10/24 19:19 06/12/24 05:09 Morphine Sulfate (*Crx) 2 Mg/Ml Inj IV PUSH 2 mg Q4H PRN Administration Pain Rated 7-10 Ondansetron HCl 4 mg 06/11/24 09:02 06/12/24 08:45 Ondansetron Inj 4 Mg/2 Ml Vial IV PUSH 4 mg Q4H PRN Administration Nausea And Vomiting Pantoprazole Sodium 40 mg 06/11/24 09:00 06/12/24 08:31 Pantoprazole 40 Mg Tablet PO 40 mg QAM WADE Administration Perflutren Lipid Microsphere 0 ml 06/10/24 14:48 Perflutren Lipid Microspheres 1.5 Ml Vial Diluted To 10 Ml Total Volume IV PUSH 06/13/24 14:50 ONCE PRN adequate visualization Protocol Perflutren Lipid Microsphere 0 ml 06/10/24 18:06 Perflutren Lipid Microspheres 1.5 Ml Vial Diluted To 10 Ml Total Volume IV PUSH 06/13/24 18:06 ONCE PRN adequate visualization Protocol Ticagrelor 90 mg 06/11/24 09:00 06/12/24 08:30 Ticagrelor 90 Mg Tablet PO 90 mg Q12HR WADE Administration Vitamin D 1,000 units 06/11/24 09:00 06/12/24 08:29 Cholecalciferol 1,000 Units Tablet PO 1,000 units DAILY WADE Administration Radiology Results: ITS Impressions Chest/Abdomen/Pelvis CTA 06/10/24 14:47 IMPRESSION: Thoracic and abdominal aortic atherosclerosis. No thoracic or abdominal aortic aneurysm or dissection Cardiomegaly Cholelithiasis Labs Labs: Laboratory Results - last 24 hr 06/11/24 06/12/24 06/12/24 18:05 04:39 04:40 WBC 16.4 H RBC 4.38 Hgb 12.9 Hct 38.3 MCV 87.4 MCH 29.5 MCHC 33.7 RDW 14.0 Plt Count 201 MPV 11.0 H Immature Gran % (Auto) 0.5 Neut % (Auto) 88.0 H Lymph % (Auto) 3.9 L [place] % (Auto) 7.5 Eos % (Auto) 0.0 Baso % (Auto) 0.1 L Lymph # (Auto) 0.64 L [place] # (Auto) 1.2 H Eos # (Auto) 0.0 Baso # (Auto) 0.0 Abs Immat Gran (auto) 0.08 H Absolute Neuts (auto) 14.5 H Absolute Nucleated RBC 0.000 Nucleated RBC % 0.0 Sodium 136 L Potassium 4.1 Chloride 105 Carbon Dioxide 25 Anion Gap 6 BUN 16 Creatinine 0.60 L Estim Creat Clear Calc 61 Estimated GFR > 60 Glucose 152 H Calcium 8.7 Magnesium 2.2 Total Bilirubin 1.6 H AST 187 H ALT 41 H Alkaline Phosphatase 80 Troponin I 15.000 H* 17.000 H* Total Protein 7.0 Albumin 3.6
[2024-06-12] MEDS: ISOSORBIDE MONONITRATE 30 MG TAB.ER.24H PO (11:11)
--- NOTE | 2024-06-12 11:15 | P.PNINT_ITS ---
Progress Note: A&P Assessment and Plan (1) Acute ST elevation myocardial infarction (STEMI) of inferior wall: Code(s): I21.19 - ST elevation (STEMI) myocardial infarction involving other coronary artery of inferior wall Status: Acute Assessment and Plan: Acute STEMI status post PCI of left circumflex with suboptimal results with residual thrombus in circumflex along with multiple other obstructive lesions i ncluding 70-80% stenosis in OM branch CTA negative for dissection or PE Patient continues to have chest pain, on p.r.n. morphine OFF Integrilin, heparin and nitroglycerin infusion. P.r.n. morphine Continue aspirin, Brilinta, statin beta-avni, losartan Case discussed with from Cardiology. 06/11/2024: Echocardiogram Summary 1. Complete two-dimensional, color flow and Doppler transthoracic echocardiogram is performed. 2. The left ventricle is normal in size. There is akinesis of the basal inferolateral, basal inferior septal, and basal inferior milan. The overall systolic function appears to be preserved with an LVEF estimated to be 50-55%. 3. The mitral valve is thickened. There is at least moderate posteriorly directed mitral regurgitation. (2) Hypertension: Code(s): I10 - Essential (primary) hypertension Status: Acute Assessment and Plan: Continue losartan and metoprolol (3) Mixed hyperlipidemia: Code(s): E78.2 - Mixed hyperlipidemia Status: Acute Assessment and Plan: Continue Atorvastatin (4) Nausea & vomiting: Code(s): R11.2 - Nausea with vomiting, unspecified Status: Acute Assessment and Plan: P.r.n. Zofran Clear liquid diet Plan DVT prophylaxis -off heparin infusion, continue SCDs Stress ulcer prophylaxis -Protonix Nutrition -heart healthy diet Code Status -full code Total Critical Care Time - 32 minutes Discussed with patient and her daughter and updated with patient's condition and plan of care. I answered all questions Due to a high probability of clinically significant, life threatening deterioration, the patient required my highest level of preparedness to intervene emergently and I personally spent this critical care time directly and personally managing the patient. This critical care time included obtaining a history; examining the patient; pulse oximetry; ordering and review of studies; arranging urgent treatment with development of a management plan; evaluation of patient's response to treatment; frequent reassessment; and discussions with other providers. It was exclusive of separately billable procedures and treating other patients and teaching time. Please see Assessment and Plan section and the rest of the note for further information on patient assessment and treatment This dictation may have been done utilizing a voice recognition system. Attempts have been made to correct errors. However, there may be uncorrected grammatical, spelling, and recognitions errors present. Subjective Date/time seen: 06/12/24 11:15 Interval history: Reason for consult: STEMI status post stent x2 in in overlapping fashion to mid distal left circumflex artery with no brief low phenomena followed by aspiration thrombectomy, intracoronary injection of nitroprusside, and listen, epinephrine with modest pentecostalism off flow in the distal vessel 06/12/2024: Patient seen and examined this morning in the ICU, she remains off heparin , nitroglycerin and Integrilin infusions. Patient states she feels much better, remains tachypneic, requiring oxygen 2 L via nasal cannula. Hemodynamically stable, complains of chest pain 2/10 intensity. Urine output has been adequate Review of Systems Review of Systems: All systems reviewed & are unremarkable except as noted in HPI and below (HPI) Exam Narrative: General: Pt is alert awake and in NAD Lungs/Chest: Slightly coarse breath sounds bilaterally, decreased at bases, adequate air entry, no wheezing Cardiac: RRR. Normal S1 S2. No murmurs Circulation: Bilateral dorsalis pedis are weak but palpable and symmetric. Abdomen: Normal bowel sounds.. Soft. NT. ND. Extremities: No clubbing, cyanosis or edema. Cap refill adequate on the right hand, radial pulse on the right hand is palpable, patient able to move all her fingers : [place] in place Neurologic: Follows commands. Moves all 4 extremities PERRL AO x3 Skin: No Rash Objective Data Vital Signs Vital Signs: Vital Signs - 24 hr 06/11/24 11:21 06/11/24 11:33 06/11/24 11:45 Temperature 98.4 F Pulse Rate 64 63 69 Respiratory Rate 28 H 18 Blood Pressure 139/74 146/66 H 144/66 H Pulse Oximetry 92 92 Oxygen Delivery Oxygen Flow Rate Fraction of Inspired Oxygen 06/11/24 12:03 06/11/24 12:15 06/11/24 12:35 Temperature 98.5 F Pulse Rate 65 65 60 Respiratory Rate 22 H Blood Pressure 148/74 H 148/74 H 143/67 H Pulse Oximetry 94 Oxygen Delivery Oxygen Flow Rate Fraction of Inspired Oxygen 06/11/24 12:15 06/11/24 12:45 06/11/24 12:00 Temperature 98.5 F Pulse Rate 66 62 65 Respiratory Rate 20 17 Blood Pressure 127/60 149/59 H Pulse Oximetry 93 94 Oxygen Delivery Room Air Oxygen Flow Rate Fraction of Inspired Oxygen 06/11/24 12:00 06/11/24 12:45 06/11/24 13:45 Temperature Pulse Rate 65 62 60 Respiratory Rate 27 H Blood Pressure 149/59 H 137/67 Pulse Oximetry 93 Oxygen Delivery Oxygen Flow Rate Fraction of Inspired Oxygen 06/11/24 13:45 06/11/24 13:54 06/11/24 13:45 Temperature 98.5 F 98.5 F Pulse Rate 62 63 62 Respiratory Rate 28 H 28 H Blood Pressure 137/67 137/67 Pulse Oximetry 93 93 Oxygen Delivery Oxygen Flow Rate Fraction of Inspired Oxygen 06/11/24 14:02 06/11/24 14:45 06/11/24 15:04 Temperature 98.5 F Pulse Rate 64 64 64 Respiratory Rate 20 Blood Pressure 140/64 135/58 L 135/62 Pulse Oximetry 92 Oxygen Delivery Oxygen Flow Rate Fraction of Inspired Oxygen 06/11/24 15:45 06/11/24 15:57 06/11/24 16:30 Temperature 98.7 F 98.7 F Pulse Rate 65 59 L 59 L Respiratory Rate 30 H 30 H Blood Pressure 186/78 H 142/57 H 138/66 Pulse Oximetry 92 92 Oxygen Delivery Oxygen Flow Rate Fraction of Inspired Oxygen 06/11/24 16:00 06/11/24 16:00 06/11/24 16:00 Temperature 98.7 F Pulse Rate 59 L 63 65 Respiratory Rate 30 H 29 H Blood Pressure 138/66 Pulse Oximetry 92 93 Oxygen Delivery Room Air Oxygen Flow Rate Fraction of Inspired Oxygen 06/11/24 16:58 06/11/24 17:30 06/11/24 18:00 Temperature Pulse Rate 66 62 64 Respiratory Rate Blood Pressure 118/64 131/60 Pulse Oximetry Oxygen Delivery Oxygen Flow Rate Fraction of Inspired Oxygen 06/11/24 18:00 06/11/24 17:45 06/11/24 20:09 Temperature 99.4 F Pulse Rate 64 62 64 Respiratory Rate 23 H 27 H Blood Pressure 122/81 126/70 139/65 Pulse Oximetry 95 95 Oxygen Delivery Oxygen Flow Rate Fraction of Inspired Oxygen 06/11/24 20:00 06/11/24 20:00 06/11/24 21:41 Temperature Pulse Rate 64 69 Respiratory Rate Blood Pressure Pulse Oximetry 95 Oxygen Delivery Nasal Cannula Oxygen Flow Rate 2 Fraction of Inspired Oxygen 06/11/24 22:00 06/11/24 22:00 06/11/24 20:00 Temperature Pulse Rate 72 68 64 Respiratory Rate 33 H Blood Pressure 137/86 139/65 Pulse Oximetry 94 Oxygen Delivery Oxygen Flow Rate Fraction of Inspired Oxygen 06/11/24 22:00 06/12/24 00:06 06/12/24 00:00 Temperature 98.6 F 98.6 F Pulse Rate 68 61 61 Respiratory Rate 30 H 30 H Blood Pressure 137/86 139/59 L 139/59 L Pulse Oximetry 96 96 Oxygen Delivery Oxygen Flow Rate Fraction of Inspired Oxygen 06/12/24 00:00 06/12/24 00:00 06/12/24 02:07 Temperature Pulse Rate 64 Respiratory Rate Blood Pressure 125/58 L Pulse Oximetry 96 Oxygen Delivery Nasal Cannula Oxygen Flow Rate 2 Fraction of Inspired Oxygen 06/12/24 02:00 06/12/24 04:00 06/12/24 04:00 Temperature 98.4 F Pulse Rate 64 68 70 Respiratory Rate 26 H Blood Pressure 149/59 H Pulse Oximetry 95 Oxygen Delivery Oxygen Flow Rate Fraction of Inspired Oxygen 06/12/24 04:00 06/12/24 04:00 06/12/24 06:00 Temperature 98.4 F Pulse Rate 70 70 Respiratory Rate 26 H Blood Pressure 149/59 H Pulse Oximetry 95 95 Oxygen Delivery Nasal Cannula Oxygen Flow Rate 2 Fraction of Inspired Oxygen 06/12/24 06:00 06/12/24 00:00 06/12/24 02:00 Temperature Pulse Rate 70 61 64 Respiratory Rate 29 H Blood Pressure 141/55 H 139/59 L 125/58 L Pulse Oximetry 93 Oxygen Delivery Oxygen Flow Rate Fraction of Inspired Oxygen 06/12/24 04:00 06/12/24 06:00 06/12/24 08:30 Temperature Pulse Rate 70 72 78 Respiratory Rate Blood Pressure 149/59 H 141/65 H Pulse Oximetry Oxygen Delivery Oxygen Flow Rate Fraction of Inspired Oxygen 06/12/24 09:04 06/12/24 08:00 06/12/24 08:00 Temperature 98.4 F Pulse Rate 72 72 Respiratory Rate 34 H Blood Pressure 147/69 H Pulse Oximetry 93 93 Oxygen Delivery Nasal Cannula Oxygen Flow Rate 2 Fraction of Inspired Oxygen 28 06/12/24 08:00 06/12/24 08:00 06/12/24 10:00 Temperature 98.4 F Pulse Rate 72 72 67 Respiratory Rate 34 H 34 H Blood Pressure 147/69 H Pulse Oximetry 93 93 Oxygen Delivery Nasal Cannula Oxygen Flow Rate 2 Fraction of Inspired Oxygen 06/12/24 10:00 Temperature Pulse Rate 67 Respiratory Rate 23 H Blood Pressure 128/61 Pulse Oximetry 93 Oxygen Delivery Oxygen Flow Rate Fraction of Inspired Oxygen Intake/Output Intake/Output: Intake & Output 06/09/24 06/10/24 06/11/24 06/12/24 23:59 23:59 23:59 23:59 Intake Total 7.6 533.9 150 Output Total 850 500 Balance 7.6 -316.1 -350 Meds/Results Medications: Active Medications Generic Name Dose Route Start Last Admin Trade Name Freq PRN Reason Stop Dose Admin Acetaminophen 650 mg 06/10/24 19:19 Acetaminophen 325 Mg Tablet PO Q4H PRN Mild Pain (1-3) or Fever Aspirin 81 mg 06/11/24 09:00 06/12/24 08:30 Aspirin 81 Mg Enteric Tablet PO 81 mg QAM WADE Administration Atorvastatin Calcium 40 mg 06/11/24 00:25 06/12/24 08:30 Atorvastatin 40 Mg Tablet PO 40 mg DAILY WADE Administration Enoxaparin Sodium 40 mg 06/12/24 09:00 06/12/24 08:29 Enoxaparin 40 Mg/0.4 Ml Syringe SUB-Q 40 mg DAILY WADE Administration Isosorbide Mononitrate 30 mg 06/12/24 10:30 06/12/24 11:11 Isosorbide Mononitrate 30 Mg Tab.Er.24h PO 30 mg QAM [facility] Administration Losartan Potassium 25 mg 06/11/24 09:00 06/12/24 08:30 Losartan Potassium 25 Mg Tablet PO 25 mg DAILY WADE Administration Metoprolol Succinate 50 mg 06/13/24 09:00 Metoprolol Succinate Ext Rel 50 Mg Tabcr PO QAM [facility] Metoprolol Tartrate 25 mg 06/10/24 14:50 06/12/24 08:30 Metoprolol Tartrate 25 Mg Tablet PO 06/12/24 23:59 25 mg Q12HR WADE Administration Morphine Sulfate 2 mg 06/10/24 19:19 06/12/24 10:57 Morphine Sulfate (*Crx) 2 Mg/Ml Inj IV PUSH 2 mg Q4H PRN Administration Pain Rated 7-10 Ondansetron HCl 4 mg 06/11/24 09:02 06/12/24 08:45 Ondansetron Inj 4 Mg/2 Ml Vial IV PUSH 4 mg Q4H PRN Administration Nausea And Vomiting Pantoprazole Sodium 40 mg 06/11/24 09:00 06/12/24 08:31 Pantoprazole 40 Mg Tablet PO 40 mg QAM WADE Administration Perflutren Lipid Microsphere 0 ml 06/10/24 14:48 Perflutren Lipid Microspheres 1.5 Ml Vial Diluted To 10 Ml Total Volume IV PUSH 06/13/24 14:50 ONCE PRN adequate visualization Protocol Perflutren Lipid Microsphere 0 ml 06/10/24 18:06 Perflutren Lipid Microspheres 1.5 Ml Vial Diluted To 10 Ml Total Volume IV PUSH 06/13/24 18:06 ONCE PRN adequate visualization Protocol Ticagrelor 90 mg 06/11/24 09:00 06/12/24 08:30 Ticagrelor 90 Mg Tablet PO 90 mg Q12HR WADE Administration Vitamin D 1,000 units 06/11/24 09:00 06/12/24 08:29 Cholecalciferol 1,000 Units Tablet PO 1,000 units DAILY WADE Administration Radiology Results: ITS Impressions Chest/Abdomen/Pelvis CTA 06/10/24 14:47 IMPRESSION: Thoracic and abdominal aortic atherosclerosis. No thoracic or abdominal aortic aneurysm or dissection Cardiomegaly Cholelithiasis Chest X-Ray 06/12/24 11:00 IMPRESSION: 1. Mild pulmonary edema. 2. Cardiomegaly. Labs Labs: Laboratory Results - last 24 hr 06/11/24 06/12/24 06/12/24 18:05 04:39 04:40 WBC 16.4 H RBC 4.38 Hgb 12.9 Hct 38.3 MCV 87.4 MCH 29.5 MCHC 33.7 RDW 14.0 Plt Count 201 MPV 11.0 H Immature Gran % (Auto) 0.5 Neut % (Auto) 88.0 H Lymph % (Auto) 3.9 L [place] % (Auto) 7.5 Eos % (Auto) 0.0 Baso % (Auto) 0.1 L Lymph # (Auto) 0.64 L [place] # (Auto) 1.2 H Eos # (Auto) 0.0 Baso # (Auto) 0.0 Abs Immat Gran (auto) 0.08 H Absolute Neuts (auto) 14.5 H Absolute Nucleated RBC 0.000 Nucleated RBC % 0.0 Sodium 136 L Potassium 4.1 Chloride 105 Carbon Dioxide 25 Anion Gap 6 BUN 16 Creatinine 0.60 L Estim Creat Clear Calc 61 Estimated GFR > 60 Glucose 152 H Calcium 8.7 Magnesium 2.2 Total Bilirubin 1.6 H AST 187 H ALT 41 H Alkaline Phosphatase 80 Troponin I 15.000 H* 17.000 H* Total Protein 7.0 Albumin 3.6 Quality VTE Prophylaxis VTE prophylaxis: pharmacologic ordered
[2024-06-12] MEDS: FUROSEMIDE INJ 40 MG/4 ML VIAL 20 MG IV PUSH (12:05)
--- NOTE | 2024-06-12 15:37 | IVDEFINITY ---
Prior to administration of IV Definity the patient was educated on the risks and benefits of the imaging enhancing agent including potential adverse side effects. The patient verbalized understanding. Allergies were verified. No exclusion criteria were identified and at least one of the following inclusion criteria were met: 1) physician request, 2) patient technically difficult to image (per the [place] [employer] Echocardi[employer] guidelines of two or more segments not discernable within the apical view), or 3) questionable left ventricular function. ?
--- NOTE | 2024-06-12 17:48 | PC.NURSE ---
This patient, Michelle Henry, was received from [ ICU-5] on 06/12/24 at 1745. Patient/family oriented to unit policies and routines. Report received from NICKI Limon @ [id number]. Family at bedside and aware of transfer
--- NOTE | 2024-06-12 17:50 | PC.NURSE ---
This patient, Michelle Henry, was transferred to [facility] on 06/12/24 at 1750. Personal belongings sent with patient. Report given to Victorina. Appropriate documentation sent with patient.
--- NOTE | 2024-06-12 19:13 | PM.IMPN ---
Progress Note: A&P Assessment and Plan (1) Acute ST elevation myocardial infarction (STEMI) of inferior wall: Code(s): I21.19 - ST elevation (STEMI) myocardial infarction involving other coronary artery of inferior wall Status: Acute Assessment and Plan: Patient with presents with upper back for the past few days. Chest/Abdomen/Pelvis CTA was negative for PE and for thoracic and abdominal aortic atherosclerosis, aneurysm or dissection. EKG showed nonspecific T-wave abnormalities and CP was treated with NTG. Repeat EKG however showed acute inferior STEMI and [employer]orer [employer] was activated Acute STEMI with 100% occlusion mid-distal LCX status post balloon angioplasty and stenting of totally occluded mid-distal left circumflex artery, aspiration thrombectomy and intracoronary injection with modest orthodoxy in the flow in the distal vessel. Also with diffuse 70-80% stenosis ostial-proximal segment of OM1 branch; diffuse 50-60% stenosis mid LAD; diffuse 70% stenosis proximal segment of major diagonal branch Echo showing normal LV size, akinesis of the basal inferolateral, basal inferior septal, and basal inferior milan, systolic fxn preserved (EF 50-55%) and moderate MR. Patient off heparin drip. She completed Integrilin. NTG drip weaned off last night. P.r.n. morphine available for CP. Continue aspirin, Brilinta, Lipitor, Losartan, Metoprolol. Imdur added. Appreciate Cardiology input (2) Hypertension: Code(s): I10 - Essential (primary) hypertension Status: Acute Assessment and Plan: Patient's blood pressure was reviewed on 06/12 Blood pressure remains well controlled. Will continue to monitor (3) Mixed hyperlipidemia: Code(s): E78.2 - Mixed hyperlipidemia Status: Acute Assessment and Plan: AST continues to rise o/w LFTs normal. LDL 95, HDL 56, TG [address] 196[address] Continue Atorvastatin Monitor LFTs (4) Nausea & vomiting: Code(s): R11.2 - Nausea with vomiting, unspecified Status: Acute Assessment and Plan: Related to above. P.r.n. Zofran available Continue clear liquid diet Plan leukocytosis - WBC 16K today. Probably stress response. No fevers. Follow for now. DVT prophylaxis - Lovenox Code Status - Full Code Subjective Date/time seen: 06/12/24 19:13 Interval history: 79yo female with HLD who initially presented as the late presentation STEMI. Chest pain better. Still some with cough. No n/v. Slept okay. Off NTG drip since yesterday evening. Exam Narrative: AF 97.7 105/55 66 24 94% ra Gen - NARD sitting up in the chair Chest - few scattered rhonchi CV - RRR S1/S2; Tele showing no significant dysrhythmias. Abd - Soft, NT/ND, Positive BS Ext - No pedal edema, 2+ DP pulses Psych - Nml mood and affect Skin - Warm and dry Objective Data Vital Signs Vital Signs: Vital Signs - 24 hr 06/11/24 20:09 06/11/24 20:00 06/11/24 20:00 Temperature 99.4 F Pulse Rate 64 64 Respiratory Rate 27 H Blood Pressure 139/65 Pulse Oximetry 95 95 Oxygen Delivery Nasal Cannula Oxygen Flow Rate 2 Fraction of Inspired Oxygen 06/11/24 21:41 06/11/24 22:00 06/11/24 22:00 Temperature Pulse Rate 69 72 68 Respiratory Rate 33 H Blood Pressure 137/86 Pulse Oximetry 94 Oxygen Delivery Oxygen Flow Rate Fraction of Inspired Oxygen 06/11/24 20:00 06/11/24 22:00 06/12/24 00:06 Temperature 98.6 F Pulse Rate 64 68 61 Respiratory Rate 30 H Blood Pressure 139/65 137/86 139/59 L Pulse Oximetry 96 Oxygen Delivery Oxygen Flow Rate Fraction of Inspired Oxygen 06/12/24 00:00 06/12/24 00:00 06/12/24 00:00 Temperature 98.6 F Pulse Rate 61 64 Respiratory Rate 30 H Blood Pressure 139/59 L Pulse Oximetry 96 96 Oxygen Delivery Nasal Cannula Oxygen Flow Rate 2 Fraction of Inspired Oxygen 06/12/24 02:07 06/12/24 02:00 06/12/24 04:00 Temperature Pulse Rate 64 68 Respiratory Rate Blood Pressure 125/58 L Pulse Oximetry Oxygen Delivery Oxygen Flow Rate Fraction of Inspired Oxygen 06/12/24 04:00 06/12/24 04:00 06/12/24 04:00 Temperature 98.4 F 98.4 F Pulse Rate 70 70 Respiratory Rate 26 H 26 H Blood Pressure 149/59 H 149/59 H Pulse Oximetry 95 95 95 Oxygen Delivery Nasal Cannula Oxygen Flow Rate 2 Fraction of Inspired Oxygen 06/12/24 06:00 06/12/24 06:00 06/12/24 00:00 Temperature Pulse Rate 70 70 61 Respiratory Rate 29 H Blood Pressure 141/55 H 139/59 L Pulse Oximetry 93 Oxygen Delivery Oxygen Flow Rate Fraction of Inspired Oxygen 06/12/24 02:00 06/12/24 04:00 06/12/24 06:00 Temperature Pulse Rate 64 70 72 Respiratory Rate Blood Pressure 125/58 L 149/59 H 141/65 H Pulse Oximetry Oxygen Delivery Oxygen Flow Rate Fraction of Inspired Oxygen 06/12/24 08:30 06/12/24 09:04 06/12/24 08:00 Temperature 98.4 F Pulse Rate 78 72 Respiratory Rate 34 H Blood Pressure 147/69 H Pulse Oximetry 93 93 Oxygen Delivery Nasal Cannula Oxygen Flow Rate 2 Fraction of Inspired Oxygen 28 06/12/24 08:00 06/12/24 08:00 06/12/24 08:00 Temperature 98.4 F Pulse Rate 72 72 72 Respiratory Rate 34 H 34 H Blood Pressure 147/69 H Pulse Oximetry 93 93 Oxygen Delivery Nasal Cannula Oxygen Flow Rate 2 Fraction of Inspired Oxygen 06/12/24 10:00 06/12/24 10:00 06/12/24 12:00 Temperature Pulse Rate 67 67 68 Respiratory Rate 23 H Blood Pressure 128/61 Pulse Oximetry 93 Oxygen Delivery Oxygen Flow Rate Fraction of Inspired Oxygen 06/12/24 12:00 06/12/24 12:00 06/12/24 14:00 Temperature 97.8 F Pulse Rate 68 68 65 Respiratory Rate 18 18 Blood Pressure 123/73 Pulse Oximetry 92 92 Oxygen Delivery Nasal Cannula Oxygen Flow Rate 2 Fraction of Inspired Oxygen 06/12/24 14:00 06/12/24 16:00 06/12/24 16:00 Temperature 97.7 F Pulse Rate 65 76 76 Respiratory Rate 18 24 H Blood Pressure 100/57 L 105/55 L Pulse Oximetry 95 97 Oxygen Delivery Oxygen Flow Rate Fraction of Inspired Oxygen 06/12/24 16:00 06/12/24 16:16 06/12/24 17:00 Temperature Pulse Rate 76 Respiratory Rate 24 H Blood Pressure Pulse Oximetry 97 94 Oxygen Delivery Nasal Cannula Nasal Cannula Room Air Oxygen Flow Rate 2 2 Fraction of Inspired Oxygen 06/12/24 18:00 Temperature Pulse Rate 66 Respiratory Rate Blood Pressure Pulse Oximetry Oxygen Delivery Oxygen Flow Rate Fraction of Inspired Oxygen Intake/Output Intake/Output: Intake & Output 06/09/24 06/10/24 06/11/24 06/12/24 23:59 23:59 23:59 23:59 Intake Total 7.6 533.9 650 Output Total 369 1325 Balance 7.6 -316.1 -675 Meds/Results Medications: Active Medications Generic Name Dose Route Start Last Admin Trade Name Freq PRN Reason Stop Dose Admin Acetaminophen 650 mg 06/10/24 19:19 Acetaminophen 325 Mg Tablet PO Q4H PRN Mild Pain (1-3) or Fever Aspirin 81 mg 06/11/24 09:00 06/12/24 08:30 Aspirin 81 Mg Enteric Tablet PO 81 mg QAM WADE Administration Atorvastatin Calcium 40 mg 06/11/24 00:25 06/12/24 08:30 Atorvastatin 40 Mg Tablet PO 40 mg DAILY WADE Administration Enoxaparin Sodium 40 mg 06/12/24 09:00 06/12/24 08:29 Enoxaparin 40 Mg/0.4 Ml Syringe SUB-Q 40 mg DAILY WADE Administration Isosorbide Mononitrate 30 mg 06/12/24 10:30 06/12/24 11:11 Isosorbide Mononitrate 30 Mg Tab.Er.24h PO 30 mg QAM [facility] Administration Losartan Potassium 25 mg 06/11/24 09:00 06/12/24 08:30 Losartan Potassium 25 Mg Tablet PO 25 mg DAILY WADE Administration Metoprolol Succinate 50 mg 06/13/24 09:00 Metoprolol Succinate Ext Rel 50 Mg Tabcr PO QAM WADE Metoprolol Tartrate 25 mg 06/10/24 14:50 06/12/24 08:30 Metoprolol Tartrate 25 Mg Tablet PO 06/12/24 23:59 25 mg Q12HR WADE Administration Morphine Sulfate 2 mg 06/10/24 19:19 06/12/24 10:57 Morphine Sulfate (*Crx) 2 Mg/Ml Inj IV PUSH 2 mg Q4H PRN Administration Pain Rated 7-10 Ondansetron HCl 4 mg 06/11/24 09:02 06/12/24 08:45 Ondansetron Inj 4 Mg/2 Ml Vial IV PUSH 4 mg Q4H PRN Administration Nausea And Vomiting Pantoprazole Sodium 40 mg 06/11/24 09:00 06/12/24 08:31 Pantoprazole 40 Mg Tablet PO 40 mg QAM [facility] Administration Perflutren Lipid Microsphere 0 ml 06/10/24 18:06 Perflutren Lipid Microspheres 1.5 Ml Vial Diluted To 10 Ml Total Volume IV PUSH 06/13/24 18:06 ONCE PRN adequate visualization Protocol Polyethylene Glycol 17 gm 06/12/24 11:18 Polyethylene Glycol 3350 17 Gm Powd.Pack PO QAM PRN Constipation Senna/Docusate Sodium 1 tab 06/12/24 21:00 Senna/Docusate Sodium Tablet PO HS WADE Ticagrelor 90 mg 06/11/24 09:00 06/12/24 08:30 Ticagrelor 90 Mg Tablet PO 90 mg Q12HR WADE Administration Vitamin D 1,000 units 06/11/24 09:00 06/12/24 08:29 Cholecalciferol 1,000 Units Tablet PO 1,000 units DAILY WADE Administration Radiology Results: ITS Impressions Chest/Abdomen/Pelvis CTA 06/10/24 14:47 IMPRESSION: Thoracic and abdominal aortic atherosclerosis. No thoracic or abdominal aortic aneurysm or dissection Cardiomegaly Cholelithiasis Chest X-Ray 06/12/24 11:00 IMPRESSION: 1. Mild pulmonary edema. 2. Cardiomegaly. Labs Labs: Laboratory Results - last 24 hr 06/12/24 06/12/24 04:39 04:40 WBC 16.4 H RBC 4.38 Hgb 12.9 Hct 38.3 MCV 87.4 MCH 29.5 MCHC 33.7 RDW 14.0 Plt Count 201 MPV 11.0 H Immature Gran % (Auto) 0.5 Neut % (Auto) 88.0 H Lymph % (Auto) 3.9 L [place] % (Auto) 7.5 Eos % (Auto) 0.0 Baso % (Auto) 0.1 L Lymph # (Auto) 0.64 L [place] # (Auto) 1.2 H Eos # (Auto) 0.0 Baso # (Auto) 0.0 Abs Immat Gran (auto) 0.08 H Absolute Neuts (auto) 14.5 H Absolute Nucleated RBC 0.000 Nucleated RBC % 0.0 Sodium 136 L Potassium 4.1 Chloride 105 Carbon Dioxide 25 Anion Gap 6 BUN 16 Creatinine 0.60 L Estim Creat Clear Calc 61 Estimated GFR > 60 Glucose 152 H Calcium 8.7 Magnesium 2.2 Total Bilirubin 1.6 H AST 187 H ALT 41 H Alkaline Phosphatase 80 Troponin I 17.000 H* Total Protein 7.0 Albumin 3.6
[2024-06-12] MEDS: SENNA/DOCUSATE SODIUM TABLET 1 TAB PO (20:49)
[2024-06-13] VITALS (16 sets, daily range): BP systolic 101–136; BP diastolic 44–52; PULSE 62–83; RESP 18–30; TEMP 36.5–37.1; O2SAT 90–95
[2024-06-13 05:32] LABS: Basophils Absolute Auto 0.1 K/mm3 (0.0-0.1); Basophils Percent Auto 0.4 % (0.2-1.2); Eosinophils Percent Auto 0.3 % (0-4.4); Hematocrit 34.8 % (37.0-47.0); Hemoglobin 11.4 g/dL (12.0-15.0); Immature Granulocyte Percent A 0.8 % (0-0.5); Lymphocytes Absolute Auto 1.02 K/mm3 (0.9-3.2); Lymphocytes Percent Auto 8.5 % (18.3-44.2); Mean Corpuscular HGB Conc 32.8 g/dl (32-36); Mean Corpuscular Hemoglobin 29.2 pg (26-34); Mean Corpuscular Volume 89.2 fl (80-100); Mean Platelet Volume 11.2 fl (7.4-10.4); Monocytes Absolute Auto 1.2 K/mm3 (0.1-0.6); Monocytes Percent Auto 9.8 % (2.6-8.5); Neutrophils Absolute Auto 9.6 K/mm3 (1.3-6.7); Neutrophils Percent Auto 80.2 % (45.5-73.1); Platelet Count Result 182 k/mm3 (150-375)
[2024-06-13 05:46] LABS: Alanine Aminotransferase 33 U/L (6-35); Albumin Level 3.3 g/dL (3.5-5.1); Alkaline Phosphatase 77 U/L (38-126); Anion Gap 5 mmol/L (4-12); Aspartate Amino Transferase 97 U/L (14-36); Bilirubin,Total 1.7 mg/dL (0.2-1.3); Blood Urea Nitrogen 20 mg/dL (7-17); Calcium 8.4 mg/dL (8.4-10.2); Carbon Dioxide 28 mmol/L (22-30); Chloride 103 mmol/L (98-107); Estimated CRCL calculation 54 ml/min; Estimated Glomerular Filt Rate > 60; Glucose 114 mg/dL (65-110); Potassium 3.5 mmol/L (3.4-5.0); Sodium 136 mmol/L (137-145)
[2024-06-13] MEDS: ISOSORBIDE MONONITRATE 30 MG TAB.ER.24H PO (07:55)
[2024-06-13] MEDS: TICAGRELOR 90 MG TABLET PO ×2 (07:56→20:35)
[2024-06-13] MEDS: ASPIRIN 81 MG ENTERIC TABLET PO (07:56)
[2024-06-13] MEDS: PANTOPRAZOLE 40 MG TABLET PO (07:56)
[2024-06-13] MEDS: METOPROLOL SUCCINATE EXT REL 50 MG TABCR PO (07:56)
[2024-06-13] MEDS: ENOXAPARIN 40 MG/0.4 ML SYRINGE SUB-Q (07:56)
[2024-06-13] MEDS: LOSARTAN POTASSIUM 25 MG TABLET PO (07:56)
[2024-06-13] MEDS: ATORVASTATIN 40 MG TABLET PO (07:56)
[2024-06-13] MEDS: CHOLECALCIFEROL 1,000 UNITS TABLET 1000 UNITS PO (07:56)
--- NOTE | 2024-06-13 09:29 | P.PNIM_ITS ---
Progress Note: A&P Assessment and Plan (1) Acute ST elevation myocardial infarction (STEMI) of inferior wall: Code(s): I21.19 - ST elevation (STEMI) myocardial infarction involving other coronary artery of inferior wall Status: Acute Plan (1) Acute ST elevation myocardial infarction (STEMI) of inferior wall: Code(s): I21.19 - ST elevation (STEMI) myocardial infarction involving other coronary artery of inferior wall Status: Acute Assessment and Plan: Patient with presents with upper back for the past few days. Chest/Abdomen/Pelvis CTA was negative for PE and for thoracic and abdominal aortic atherosclerosis, aneurysm or dissection. EKG showed nonspecific T-wave abnormalities and CP was treated with NTG. 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 Also with diffuse 70-80% stenosis ostial-proximal segment of OM1 branch; diffuse 50-60% stenosis mid LAD; diffuse 70% stenosis proximal segment of major diagonal branch Echo showing normal LV size, akinesis of the basal inferolateral, basal inferior septal, and basal inferior milan, systolic fxn preserved (EF 50-55%) and moderate MR. Patient off heparin drip. She completed Integrilin. NTG drip weaned off last night. P.r.n. morphine available for CP. Continue aspirin, Brilinta, Lipitor, Losartan, Metoprolol. Imdur added. 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 p.o., ceftriaxone 1 g IV daily (2) Hypertension: Code(s): I10 - Essential (primary) hypertension Status: Acute Assessment and Plan: Patient's blood pressure was reviewed on 06/12 Blood pressure remains well controlled. Will continue to monitor (3) Mixed hyperlipidemia: Code(s): E78.2 - Mixed hyperlipidemia Status: Acute Assessment and Plan: AST continues to rise o/w LFTs normal. LDL 95, HDL 56, TG [address] Continue Atorvastatin Monitor LFTs (4) Nausea & vomiting: Code(s): R11.2 - Nausea with vomiting, unspecified Status: Acute Assessment and Plan: Related to above. P.r.n. Zofran available Continue clear liquid diet Will advance diet as tolerable Plan leukocytosis - WBC is trending down. Probably stress response. No fevers. no sign of infection now DVT prophylaxis - Lovenox Code Status - Full Code Subjective Date/time seen: 06/13/24 09:29 Interval history: I saw examined patient today, patient has chest pain again he middle of the chest, worse with cough and deep breaths. Patient has worsening cough today. Patient denies short of breath, abdomen pain, nausea vomiting diarrhea. Patient has leukocytosis 12,000 today. X-rays suggest possible left small pleural effusion, left basilar pneumonia versus a basilar atelectasis Exam Narrative: GENERAL: Pleasant, in no acute distress. Well-nourished. - EYES: EOMI. Anicteric. - HENT: Moist mucous membranes. - LUNGS: Clear to auscultation bilateral ly, no wheezing, rhonchi, or rales. - CARDIOVASCULAR: Regular rate and rhyth m. No murmur. No JVD. - ABDOMEN: Soft, non-tender and non-dist ended. No palpable masses. - EXTREMITIES: No edema. Peripheral puls es 2+. Non-tender. - NEUROLOGIC: No focal neurological defi cits. CN II-XII grossly intact. - PSYCHIATRIC: Awake, Alert and oriented x 3. Appropriate mood and affect. - SKIN: No rashes or lesions. Warm. - LYMPH: No cervical lymphadenopathy. Objective Data Vital Signs Vital Signs: Vital Signs - 24 hr 06/12/24 10:00 06/12/24 10:00 06/12/24 12:00 Temperature Pulse Rate 67 67 68 Respiratory Rate 23 H Blood Pressure 128/61 Pulse Oximetry 93 Oxygen Delivery Oxygen Flow Rate 06/12/24 12:00 06/12/24 12:00 06/12/24 14:00 Temperature 97.8 F Pulse Rate 68 68 65 Respiratory Rate 18 18 Blood Pressure 123/73 Pulse Oximetry 92 92 Oxygen Delivery Nasal Cannula Oxygen Flow Rate 2 06/12/24 14:00 06/12/24 16:00 06/12/24 16:00 Temperature 97.7 F Pulse Rate 65 76 76 Respiratory Rate 18 24 H Blood Pressure 100/57 L 105/55 L Pulse Oximetry 95 97 Oxygen Delivery Oxygen Flow Rate 06/12/24 16:00 06/12/24 16:16 06/12/24 17:00 Temperature Pulse Rate 76 Respiratory Rate 24 H Blood Pressure Pulse Oximetry 97 94 Oxygen Delivery Nasal Cannula Nasal Cannula Room Air Oxygen Flow Rate 2 2 06/12/24 18:00 06/12/24 20:48 06/12/24 21:22 Temperature 97.7 F Pulse Rate 66 66 68 Respiratory Rate 24 H Blood Pressure 111/39 L Pulse Oximetry 90 Oxygen Delivery Oxygen Flow Rate 06/12/24 20:00 06/13/24 00:04 06/12/24 20:00 Temperature 97.7 F Pulse Rate 64 64 Respiratory Rate 24 H Blood Pressure 111/44 L Pulse Oximetry 91 Oxygen Delivery Room Air Oxygen Flow Rate 06/12/24 22:00 06/13/24 00:00 06/13/24 00:00 Temperature Pulse Rate 60 62 Respiratory Rate Blood Pressure Pulse Oximetry Oxygen Delivery Room Air Oxygen Flow Rate 06/13/24 02:00 06/13/24 04:00 06/13/24 04:00 Temperature Pulse Rate 71 64 Respiratory Rate Blood Pressure Pulse Oximetry Oxygen Delivery Room Air Oxygen Flow Rate 06/13/24 05:44 06/13/24 07:56 06/13/24 08:00 Temperature 97.7 F 98.1 F Pulse Rate 75 71 72 Respiratory Rate 18 28 H Blood Pressure 136/52 L 126/49 L Pulse Oximetry 90 95 Oxygen Delivery Oxygen Flow Rate 06/13/24 08:00 06/13/24 08:00 Temperature Pulse Rate 73 Respiratory Rate Blood Pressure Pulse Oximetry Oxygen Delivery Room Air Oxygen Flow Rate Intake/Output Intake/Output: Intake & Output 06/10/24 06/11/24 06/12/24 06/13/24 23:59 23:59 23:59 23:59 Intake Total 7.6 533.9 650 330 Output Total 850 1325 250 Balance 7.6 -316.1 -675 80 Meds/Results Medications: Active Medications Generic Name Dose Route Start Last Admin Trade Name Freq PRN Reason Stop Dose Admin Acetaminophen 650 mg 06/10/24 19:19 Acetaminophen 325 Mg Tablet PO Q4H PRN Mild Pain (1-3) or Fever Aspirin 81 mg 06/11/24 09:00 06/13/24 07:56 Aspirin 81 Mg Enteric Tablet PO 81 mg QAM WADE Administration Atorvastatin Calcium 40 mg 06/11/24 00:25 06/13/24 07:56 Atorvastatin 40 Mg Tablet PO 40 mg DAILY WADE Administration Enoxaparin Sodium 40 mg 06/12/24 09:00 06/13/24 07:56 Enoxaparin 40 Mg/0.4 Ml Syringe SUB-Q 40 mg DAILY WADE Administration Isosorbide Mononitrate 30 mg 06/12/24 10:30 06/13/24 07:55 Isosorbide Mononitrate 30 Mg Tab.Er.24h PO 30 mg QAM WADE Administration Losartan Potassium 25 mg 06/11/24 09:00 06/13/24 07:56 Losartan Potassium 25 Mg Tablet PO 25 mg DAILY WADE Administration Metoprolol Succinate 50 mg 06/13/24 09:00 06/13/24 07:56 Metoprolol Succinate Ext Rel 50 Mg Tabcr PO 50 mg QAM WADE Administration Morphine Sulfate 2 mg 06/10/24 19:19 06/12/24 10:57 Morphine Sulfate (*Crx) 2 Mg/Ml Inj IV PUSH 2 mg Q4H PRN Administration Pain Rated 7-10 Ondansetron HCl 4 mg 06/11/24 09:02 06/12/24 08:45 Ondansetron Inj 4 Mg/2 Ml Vial IV PUSH 4 mg Q4H PRN Administration Nausea And Vomiting Pantoprazole Sodium 40 mg 06/11/24 09:00 06/13/24 07:56 Pantoprazole 40 Mg Tablet PO 40 mg QAM WADE Administration Perflutren Lipid Microsphere 0 ml 06/10/24 18:06 Perflutren Lipid Microspheres 1.5 Ml Vial Diluted To 10 Ml Total Volume IV PUSH 06/13/24 18:06 ONCE PRN adequate visualization Protocol Polyethylene Glycol 17 gm 06/12/24 11:18 Polyethylene Glycol 3350 17 Gm Powd.Pack PO QAM PRN Constipation Senna/Docusate Sodium 1 tab 06/12/24 21:00 06/12/24 20:49 Senna/Docusate Sodium Tablet PO 1 tab HS WADE Administration Ticagrelor 90 mg 06/11/24 09:00 06/13/24 07:56 Ticagrelor 90 Mg Tablet PO 90 mg Q12HR WADE Administration Vitamin D 1,000 units 06/11/24 09:00 06/13/24 07:56 Cholecalciferol 1,000 Units Tablet PO 1,000 units DAILY WADE Administration Radiology Results: ITS Impressions Chest/Abdomen/Pelvis CTA 06/10/24 14:47 IMPRESSION: Thoracic and abdominal aortic atherosclerosis. No thoracic or abdominal aortic aneurysm or dissection Cardiomegaly Cholelithiasis Chest X-Ray 06/12/24 11:00 IMPRESSION: 1. Mild pulmonary edema. 2. Cardiomegaly. Labs Labs: Laboratory Results - last 24 hr 06/13/24 05:13 WBC 12.0 H RBC 3.90 L Hgb 11.4 L Hct 34.8 L MCV 89.2 MCH 29.2 MCHC 32.8 RDW 14.0 Plt Count 182 MPV 11.2 H Immature Gran % (Auto) 0.8 H Neut % (Auto) 80.2 H Lymph % (Auto) 8.5 L [place] % (Auto) 9.8 H Eos % (Auto) 0.3 Baso % (Auto) 0.4 Lymph # (Auto) 1.02 [place] # (Auto) 1.2 H Eos # (Auto) 0.0 Baso # (Auto) 0.1 Abs Immat Gran (auto) 0.10 H Absolute Neuts (auto) 9.6 H Absolute Nucleated RBC 0.000 Nucleated RBC % 0.0 Sodium 136 L Potassium 3.5 Chloride 103 Carbon Dioxide 28 Anion Gap 5 BUN 20 H Creatinine 0.70 Estim Creat Clear Calc 54 Estimated GFR > 60 Glucose 114 H Calcium 8.4 Total Bilirubin 1.7 H AST 97 H ALT 33 Alkaline Phosphatase 77 Total Protein 7.0 Albumin 3.3 L
--- NOTE | 2024-06-13 14:17 | PM.PNCARD ---
Progress Note: A&P Assessment and Plan (1) Acute ST elevation myocardial infarction (STEMI) of inferior wall: Code(s): I21.19 - ST elevation (STEMI) myocardial infarction involving other coronary artery of inferior wall Status: Acute Assessment and Plan: Cardiac catheterization 06/10 showed: 100% thrombotic occlusion mid-distal left circumflex artery (infarct related vessel); diffuse 70-80% stenosis ostial-proximal segment of OM1 branch; diffuse 50-60% stenosis mid LAD; diffuse 70% stenosis proximal segment of major diagonal branch. Hyperdynamic LV systolic function, ejection fraction more than 75%; LVEDP elevated at 29 mmHg. 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 Echocardiogram 06/11 with LVEF 50-55%, akinesis of the basal inferolateral, basal inferior septal, and basal inferior milan. Moderate posteriorly directed mitral regurgitation. Continue ASA 81mg once daily. Continue Brilinta 90mg BID. Continue high intensity statin. Continue Metoprolo Continue Losartan 25mg once daily. Continue Imdur Staged PCI of OM branch; and functional assessment of mid LAD in near future. To be done as outpatient. (2) Mixed hyperlipidemia: Code(s): E78.2 - Mixed hyperlipidemia Status: Acute Assessment and Plan: Continue high intensity statin. (3) Essential (primary) hypertension: Code(s): I10 - Essential (primary) hypertension Status: Acute Assessment and Plan: Continue Metoprolol Continue Losartan 25mg once daily. Plan Recommendations and plan discussed with Hospitalist. Subjective Date/time seen: 06/13/24 14:17 Interval history: Reason for visit: STEMI HPI: Patient is a 79-year-old female who came to hospital because of chest pain. Patient states that she started to have chest pain 2 days ago. States that the pain has been relatively constant since that time. It is located anterior chest radiated to her back and between her shoulder blades. She does describe some numbness in her arms. Pain worsened today and worsened with activity and therefore she came to the hospital for further workup and evaluation. Again she states that her symptoms have been relatively constant over the past couple of days but again progressively worsening. She has not had any past episodes. She did state that she had some bowel movements and her symptoms did improve. She otherwise denies any recent shortness of breath, syncope, presyncope, paroxysmal nocturnal dyspnea, orthopnea, edema palpitations. Electrocardiogram shows some nonspecific ST and T-wave abnormality and initial troponin is elevated. Date of service 06/11: 79-year-old woman with hyperlipidemia who initially presented as the late presentation STEMI with no reflow phenomenon after PCI. She currently still has some chest pain as well as back pain between her scapula. Otherwise she does not have any shortness of breath. Date of service 06/12: Overall, feeling better compared to before. Off of NTG drip. Has some back pain between her scalpula. Has anterior chest pain that mostly occurs with coughing. EKG this morning with improvement in ST elevations. Date of service 06/13: Feeling better today. No nausea. Has pleuritic chest pain. More of an appetite today. Review of Systems Review of Systems: All systems reviewed & are unremarkable except as noted in HPI and below (HPI) Exam Const: General: comfortable and no acute distress HENMT: Mouth: Yes moist mucous membranes Eyes: General: appearance normal, both eyes and all related structures Sclera: sclerae normal Resp: Effort & Inspection: normal respiratory effort Other: On nasal cannula Cardio: Rate: regular rate Rhythm: regular rhythm Skin: General skin exam: normal color Neuro: Speech: normal speech Psych: Mental Status: mental status grossly normal Affect: normal affect Objective Data Vital Signs Vital Signs: Vital Signs - 24 hr 06/12/24 16:00 06/12/24 16:00 06/12/24 16:00 Temperature 36.5 C Pulse Rate 76 76 76 Respiratory Rate 24 H 24 H Blood Pressure 105/55 L Pulse Oximetry 97 97 Oxygen Delivery Nasal Cannula Oxygen Flow Rate 2 06/12/24 16:16 06/12/24 17:00 06/12/24 18:00 Temperature Pulse Rate 66 Respiratory Rate Blood Pressure Pulse Oximetry 94 Oxygen Delivery Nasal Cannula Room Air Oxygen Flow Rate 2 06/12/24 20:48 06/12/24 21:22 06/12/24 20:00 Temperature 36.5 C Pulse Rate 66 68 Respiratory Rate 24 H Blood Pressure 111/39 L Pulse Oximetry 90 Oxygen Delivery Room Air Oxygen Flow Rate 06/13/24 00:04 06/12/24 20:00 06/12/24 22:00 Temperature 36.5 C Pulse Rate 64 64 60 Respiratory Rate 24 H Blood Pressure 111/44 L Pulse Oximetry 91 Oxygen Delivery Oxygen Flow Rate 06/13/24 00:00 06/13/24 00:00 06/13/24 02:00 Temperature Pulse Rate 62 71 Respiratory Rate Blood Pressure Pulse Oximetry Oxygen Delivery Room Air Oxygen Flow Rate 06/13/24 04:00 06/13/24 04:00 06/13/24 05:44 Temperature 36.5 C Pulse Rate 64 75 Respiratory Rate 18 Blood Pressure 136/52 L Pulse Oximetry 90 Oxygen Delivery Room Air Oxygen Flow Rate 06/13/24 07:56 06/13/24 08:00 06/13/24 08:00 Temperature 36.7 C Pulse Rate 71 72 Respiratory Rate 28 H Blood Pressure 126/49 L Pulse Oximetry 95 Oxygen Delivery Room Air Oxygen Flow Rate 06/13/24 08:00 06/13/24 10:02 06/13/24 10:00 Temperature Pulse Rate 73 64 Respiratory Rate Blood Pressure Pulse Oximetry Oxygen Delivery Room Air Oxygen Flow Rate 06/13/24 12:00 06/13/24 12:00 06/13/24 12:00 Temperature 36.7 C Pulse Rate 63 67 Respiratory Rate 18 Blood Pressure 113/51 L Pulse Oximetry 92 Oxygen Delivery Room Air Oxygen Flow Rate Intake/Output Intake/Output: Intake & Output 06/10/24 06/11/24 06/12/24 06/13/24 23:59 23:59 23:59 23:59 Intake Total 7.6 533.9 650 570 Output Total 850 1325 250 Balance 7.6 -316.1 -675 320 Meds/Results Medications: Active Medications Generic Name Dose Route Start Last Admin Trade Name Freq PRN Reason Stop Dose Admin Acetaminophen 650 mg 06/10/24 19:19 Acetaminophen 325 Mg Tablet PO Q4H PRN Mild Pain (1-3) or Fever Aspirin 81 mg 06/11/24 09:00 06/13/24 07:56 Aspirin 81 Mg Enteric Tablet PO 81 mg QAM WADE Administration Atorvastatin Calcium 40 mg 06/11/24 00:25 06/13/24 07:56 Atorvastatin 40 Mg Tablet PO 40 mg DAILY WADE Administration Enoxaparin Sodium 40 mg 06/12/24 09:00 06/13/24 07:56 Enoxaparin 40 Mg/0.4 Ml Syringe SUB-Q 40 mg DAILY WADE Administration Isosorbide Mononitrate 30 mg 06/12/24 10:30 06/13/24 07:55 Isosorbide Mononitrate 30 Mg Tab.Er.24h PO 30 mg QAM WADE Administration Losartan Potassium 25 mg 06/11/24 09:00 06/13/24 07:56 Losartan Potassium 25 Mg Tablet PO 25 mg DAILY WADE Administration Metoprolol Succinate 50 mg 06/13/24 09:00 06/13/24 07:56 Metoprolol Succinate Ext Rel 50 Mg Tabcr PO 50 mg QAM WAED Administration Morphine Sulfate 2 mg 06/10/24 19:19 06/12/24 10:57 Morphine Sulfate (*Crx) 2 Mg/Ml Inj IV PUSH 2 mg Q4H PRN Administration Pain Rated 7-10 Ondansetron HCl 4 mg 06/11/24 09:02 06/12/24 08:45 Ondansetron Inj 4 Mg/2 Ml Vial IV PUSH 4 mg Q4H PRN Administration Nausea And Vomiting Pantoprazole Sodium 40 mg 06/11/24 09:00 06/13/24 07:56 Pantoprazole 40 Mg Tablet PO 40 mg QAM WADE Administration Perflutren Lipid Microsphere 0 ml 06/10/24 18:06 Perflutren Lipid Microspheres 1.5 Ml Vial Diluted To 10 Ml Total Volume IV PUSH 06/13/24 18:06 ONCE PRN adequate visualization Protocol Polyethylene Glycol 17 gm 06/12/24 11:18 Polyethylene Glycol 3350 17 Gm Powd.Pack PO QAM PRN Constipation Senna/Docusate Sodium 1 tab 06/12/24 21:00 06/12/24 20:49 Senna/Docusate Sodium Tablet PO 1 tab HS WADE Administration Ticagrelor 90 mg 06/11/24 09:00 06/13/24 07:56 Ticagrelor 90 Mg Tablet PO 90 mg Q12HR WADE Administration Vitamin D 1,000 units 06/11/24 09:00 06/13/24 07:56 Cholecalciferol 1,000 Units Tablet PO 1,000 units DAILY WADE Administration Radiology Results: ITS Impressions Chest/Abdomen/Pelvis CTA 06/10/24 14:47 IMPRESSION: Thoracic and abdominal aortic atherosclerosis. No thoracic or abdominal aortic aneurysm or dissection Cardiomegaly Cholelithiasis Labs Labs: Laboratory Results - last 24 hr 06/13/24 05:13 WBC 12.0 H RBC 3.90 L Hgb 11.4 L Hct 34.8 L MCV 89.2 MCH 29.2 MCHC 32.8 RDW 14.0 Plt Count 182 MPV 11.2 H Immature Gran % (Auto) 0.8 H Neut % (Auto) 80.2 H Lymph % (Auto) 8.5 L [place] % (Auto) 9.8 H Eos % (Auto) 0.3 Baso % (Auto) 0.4 Lymph # (Auto) 1.02 [place] # (Auto) 1.2 H Eos # (Auto) 0.0 Baso # (Auto) 0.1 Abs Immat Gran (auto) 0.10 H Absolute Neuts (auto) 9.6 H Absolute Nucleated RBC 0.000 Nucleated RBC % 0.0 Sodium 136 L Potassium 3.5 Chloride 103 Carbon Dioxide 28 Anion Gap 5 BUN 20 H Creatinine 0.70 Estim Creat Clear Calc 54 Estimated GFR > 60 Glucose 114 H Calcium 8.4 Total Bilirubin 1.7 H AST 97 H ALT 33 Alkaline Phosphatase 77 Total Protein 7.0 Albumin 3.3 L
[2024-06-13] MEDS: FUROSEMIDE INJ 40 MG/4 ML VIAL IV PUSH (15:26)
--- NOTE | 2024-06-13 18:23 | ECG_ITS ---
Test Date: 2024-06-13 18:19:40 Measurements Intervals [place] Rate: 77 P: 0 MS: 0 QRS: 6 QRSD: 77 T: 4 QT: 387 QTc: 440 Interpretive Statements ATRIAL FIBRILLATION NONSPECIFIC ST & T-WAVE ABNORMALITY ABNORMAL RHYTHM ECG WARNING: DATA QUALITY MAY AFFECT INTERPRETATION Compared to ECG 06/12/2024 05:31:46 Sinus rhythm no longer present T-wave abnormality still present Electronically Signed On 06-14-2024 11:39:37 CDT by Dhaval Kathleen M.D.
--- NOTE | 2024-06-13 18:43 | PC.NURSE ---
1817: RN noticed rhythm change on monitor and storage bin tender; pt now in AFib. Telemetry leads changed. No change of rhythm or rate on the monitor. 1818: 12 lead EKG obtained and VS. HR 80, R 30, O2 92%, BP 111/50 1821: Call placed to [facility] exchange line [id number]: Dr. Helton returned call. Updated on pt's rhythm change. Pt remains asymptomatic in bed. HR in the 70's-80's. No new orders at this time. Notify Cardiology if pt becomes severely symptomatic or rate goes into a tachy rhythm (Afib RVR)
[2024-06-13] MEDS: SENNA/DOCUSATE SODIUM TABLET 1 TAB PO (20:35)
[2024-06-13] MEDS: DOXYCYCLINE HYCLATE 100 MG TABLET PO (20:35)
[2024-06-14] VITALS (10 sets, daily range): BP systolic 108–117; BP diastolic 42–59; PULSE 63–73; RESP 16–22; TEMP 36.4–36.8; O2SAT 96–99
--- NOTE | 2024-06-14 02:04 | ECG_ITS ---
Test Date: 2024-06-14 02:17:17 Measurements Intervals [place] Rate: 66 P: 22 IA: 152 QRS: 9 QRSD: 86 T: 7 QT: 415 QTc: 438 Interpretive Statements SINUS RHYTHM NONSPECIFIC ST & T-WAVE ABNORMALITY Compared to ECG 06/13/2024 18:19:40 Atrial fibrillation no longer present T-wave abnormality still present Electronically Signed On 06-14-2024 11:43:18 CDT by Dhaval Kathleen M.D.
[2024-06-14 05:46] LABS: Basophils Absolute Auto 0.1 K/mm3 (0.0-0.1); Basophils Percent Auto 0.5 % (0.2-1.2); Eosinophils Absolute Auto 0.1 K/mm3 (0-0.3); Eosinophils Percent Auto 0.9 % (0-4.4); Hematocrit 34.8 % (37.0-47.0); Hemoglobin 11.7 g/dL (12.0-15.0); Lymphocytes Absolute Auto 1.15 K/mm3 (0.9-3.2); Lymphocytes Percent Auto 11.6 % (18.3-44.2); Mean Corpuscular HGB Conc 33.6 g/dl (32-36); Mean Corpuscular Hemoglobin 29.3 pg (26-34); Mean Platelet Volume 11.8 fl (7.4-10.4); Monocytes Percent Auto 10.2 % (2.6-8.5); Neutrophils Absolute Auto 7.5 K/mm3 (1.3-6.7); Neutrophils Percent Auto 75.8 % (45.5-73.1); Platelet Count Result 199 k/mm3 (150-375); Red Cell Distribution Width 13.6 % (11.5-14.5); White Blood Count 9.9 K/mm3 (4.5-10.0)
[2024-06-14 05:47] LABS: Alanine Aminotransferase 27 U/L (6-35); Albumin Level 3.3 g/dL (3.5-5.1); Alkaline Phosphatase 76 U/L (38-126); Anion Gap 4 mmol/L (4-12); Aspartate Amino Transferase 68 U/L (14-36); Bilirubin,Total 1.2 mg/dL (0.2-1.3); Blood Urea Nitrogen 22 mg/dL (7-17); Calcium 8.2 mg/dL (8.4-10.2); Carbon Dioxide 28 mmol/L (22-30); Chloride 103 mmol/L (98-107); Estimated CRCL calculation 60 ml/min; Estimated Glomerular Filt Rate > 60; Glucose 127 mg/dL (65-110); Potassium 2.9 mmol/L (3.4-5.0); Sodium 135 mmol/L (137-145)
[2024-06-14] MEDS: ENOXAPARIN 40 MG/0.4 ML SYRINGE SUB-Q (09:16)
[2024-06-14] MEDS: METOPROLOL SUCCINATE EXT REL 50 MG TABCR PO (09:37)
[2024-06-14] MEDS: ATORVASTATIN 40 MG TABLET PO (09:37)
[2024-06-14] MEDS: ASPIRIN 81 MG ENTERIC TABLET PO (09:38)
[2024-06-14] MEDS: CHOLECALCIFEROL 1,000 UNITS TABLET 1000 UNITS PO (09:38)
[2024-06-14] MEDS: PANTOPRAZOLE 40 MG TABLET PO (09:38)
[2024-06-14] MEDS: TICAGRELOR 90 MG TABLET PO (09:38)
[2024-06-14] MEDS: LOSARTAN POTASSIUM 25 MG TABLET PO (09:38)
[2024-06-14] MEDS: DOXYCYCLINE HYCLATE 100 MG TABLET PO (09:38)
[2024-06-14] MEDS: ISOSORBIDE MONONITRATE 30 MG TAB.ER.24H PO (09:38)
--- NOTE | 2024-06-14 11:02 | PM.PNCARD ---
Progress Note: A&P Assessment and Plan (1) Acute ST elevation myocardial infarction (STEMI) of inferior wall: Code(s): I21.19 - ST elevation (STEMI) myocardial infarction involving other coronary artery of inferior wall Status: Acute (2) Atrial fibrillation: Code(s): I48.91 - Unspecified atrial fibrillation Status: Acute Plan 79-year-old woman with hyperlipidemia who initially presented as the late presentation STEMI with no reflow phenomenon after PCI STEMI status post PCI with no reflow phenomenon -angina resolved with medical therapy and completion of infarct -continue aspirin 81 mg, ticagrelor 90 mg b.i.d., atorvastatin 40 mg every evening, and isosorbide mononitrate 30 mg p.o. daily -will need follow-up to discuss complete coronary revascularization Paroxysmal atrial fibrillation -may be secondary to acute infarct -would warrant outpatient event monitor for further episodes of atrial fibrillation -if further episodes are found on outpatient monitor, she would qualify for anticoagulation therapy Ischemic cardiomyopathy with preserved ejection fraction -losartan 25 mg p.o. daily Hypertension -blood pressure goal of less than systolic 130 which patient has obtained -continue losartan 25 mg p.o. daily Patient can follow-up with Dr. Pool Subjective Date/time seen: 06/14/24 11:02 Interval history: She is feeling well today without any chest pain or shortness of breath. Review of Systems Cardiovascular: Cardiovascular: Reports as per HPI Exam Const: General: comfortable and no acute distress HENMT: Mouth: Yes moist mucous membranes Eyes: EOM: EOMs intact bilaterally Neck: Neck: no JVD Resp: Auscultation: clear to auscultation bilaterally Cardio: Rate: regular rate Rhythm: regular rhythm GI: GI Palp: Yes Soft to palpation Neuro: Speech: normal speech Extrem: General: normal to inspection Psych: Affect: normal affect Objective Data Vital Signs Vital Signs: Vital Signs - 24 hr 06/13/24 12:00 06/13/24 12:00 06/13/24 12:00 Temperature 36.7 C Pulse Rate 63 67 Respiratory Rate 18 Blood Pressure 113/51 L Pulse Oximetry 92 Oxygen Delivery Room Air Fraction of Inspired Oxygen 06/13/24 14:00 06/13/24 16:00 06/13/24 16:00 Temperature Pulse Rate 68 65 Respiratory Rate Blood Pressure Pulse Oximetry Oxygen Delivery Room Air Fraction of Inspired Oxygen 06/13/24 16:00 06/13/24 18:00 06/13/24 18:21 Temperature 37.0 C Pulse Rate 83 76 80 Respiratory Rate 22 H 30 H Blood Pressure 116/51 L 111/50 L Pulse Oximetry 93 92 Oxygen Delivery Fraction of Inspired Oxygen 06/13/24 20:05 06/13/24 20:00 06/14/24 01:26 Temperature 37.1 C 36.8 C Pulse Rate 82 69 Respiratory Rate 22 H 22 H Blood Pressure 101/52 L 117/45 L Pulse Oximetry 92 96 Oxygen Delivery Room Air Fraction of Inspired Oxygen 06/13/24 20:00 06/13/24 22:00 06/14/24 00:00 Temperature Pulse Rate 73 76 64 Respiratory Rate Blood Pressure Pulse Oximetry Oxygen Delivery Fraction of Inspired Oxygen 06/14/24 00:00 06/14/24 02:00 06/14/24 04:00 Temperature Pulse Rate 65 Respiratory Rate Blood Pressure Pulse Oximetry Oxygen Delivery Room Air Room Air Fraction of Inspired Oxygen 06/14/24 05:36 06/14/24 04:00 06/14/24 06:00 Temperature 36.5 C Pulse Rate 64 63 73 Respiratory Rate 22 H Blood Pressure 108/50 L Pulse Oximetry 97 Oxygen Delivery Fraction of Inspired Oxygen 06/14/24 08:00 06/14/24 09:37 06/14/24 08:00 Temperature 36.6 C Pulse Rate 64 66 71 Respiratory Rate 22 H Blood Pressure 112/59 L Pulse Oximetry 96 Oxygen Delivery Fraction of Inspired Oxygen 06/14/24 08:00 06/14/24 10:00 Temperature Pulse Rate 66 70 Respiratory Rate 22 H Blood Pressure Pulse Oximetry 96 Oxygen Delivery Room Air Fraction of Inspired Oxygen 28 Intake/Output Intake/Output: Intake & Output 06/11/24 06/12/24 06/13/24 06/14/24 23:59 23:59 23:59 23:59 Intake Total 533.9 650 1290 550 Output Total 850 1325 750 Balance -316.1 -675 540 550 Meds/Results Medications: Active Medications Generic Name Dose Route Start Last Admin Trade Name Freq PRN Reason Stop Dose Admin Acetaminophen 650 mg 06/10/24 19:19 Acetaminophen 325 Mg Tablet PO Q4H PRN Mild Pain (1-3) or Fever Aspirin 81 mg 06/11/24 09:00 06/14/24 09:38 Aspirin 81 Mg Enteric Tablet PO 81 mg QAM WADE Administration Atorvastatin Calcium 40 mg 06/11/24 00:25 06/14/24 09:37 Atorvastatin 40 Mg Tablet PO 40 mg DAILY WADE Administration Doxycycline Hyclate 100 mg 06/13/24 21:00 06/14/24 09:38 Doxycycline Hyclate 100 Mg Tablet PO 100 mg Q12HR WADE Administration Enoxaparin Sodium 40 mg 06/12/24 09:00 06/14/24 09:16 Enoxaparin 40 Mg/0.4 Ml Syringe SUB-Q 40 mg DAILY WADE Administration Ceftriaxone Sodium 1 gm in 50 mls @ 100 mls/hr 06/13/24 16:00 06/13/24 15:56 Rocephin 1 Gm/Ns 50 Ml IVPB Infused Q24H WADE Infusion Isosorbide Mononitrate 30 mg 06/12/24 10:30 06/14/24 09:38 Isosorbide Mononitrate 30 Mg Tab.Er.24h PO 30 mg QAM WADE Administration Losartan Potassium 25 mg 06/11/24 09:00 06/14/24 09:38 Losartan Potassium 25 Mg Tablet PO 25 mg DAILY WADE Administration Metoprolol Succinate 50 mg 06/13/24 09:00 06/14/24 09:37 Metoprolol Succinate Ext Rel 50 Mg Tabcr PO 50 mg QAM [facility] Administration Morphine Sulfate 2 mg 06/10/24 19:19 06/12/24 10:57 Morphine Sulfate (*Crx) 2 Mg/Ml Inj IV PUSH 2 mg Q4H PRN Administration Pain Rated 7-10 Ondansetron HCl 4 mg 06/11/24 09:02 06/12/24 08:45 Ondansetron Inj 4 Mg/2 Ml Vial IV PUSH 4 mg Q4H PRN Administration Nausea And Vomiting Pantoprazole Sodium 40 mg 06/11/24 09:00 06/14/24 09:38 Pantoprazole 40 Mg Tablet PO 40 mg QAM [facility] Administration Polyethylene Glycol 17 gm 06/12/24 11:18 Polyethylene Glycol 3350 17 Gm Powd.Pack PO QAM PRN Constipation Senna/Docusate Sodium 1 tab 06/12/24 21:00 06/13/24 20:35 Senna/Docusate Sodium Tablet PO 1 tab HS [facility] Administration Ticagrelor 90 mg 06/11/24 09:00 06/14/24 09:38 Ticagrelor 90 Mg Tablet PO 90 mg Q12HR WADE Administration Vitamin D 1,000 units 06/11/24 09:00 06/14/24 09:38 Cholecalciferol 1,000 Units Tablet PO 1,000 units DAILY WADE Administration Radiology Results: ITS Impressions Chest/Abdomen/Pelvis CTA 06/10/24 14:47 IMPRESSION: Thoracic and abdominal aortic atherosclerosis. No thoracic or abdominal aortic aneurysm or dissection Cardiomegaly Cholelithiasis Chest X-Ray 06/13/24 14:22 IMPRESSION: 1. Likely congestive heart failure with cardiomegaly and mild pulmonary edema and the lower lungs. 2. Small left pleural effusion with associated left basilar atelectasis or pneumonia. Labs Labs: Laboratory Results - last 24 hr 06/14/24 05:10 WBC 9.9 RBC 4.00 L Hgb 11.7 L Hct 34.8 L MCV 87.0 MCH 29.3 MCHC 33.6 RDW 13.6 Plt Count 199 MPV 11.8 H Immature Gran % (Auto) 1.0 H Neut % (Auto) 75.8 H Lymph % (Auto) 11.6 L Grant % (Auto) 10.2 H Eos % (Auto) 0.9 Baso % (Auto) 0.5 Lymph # (Auto) 1.15 Grant # (Auto) 1.0 H Eos # (Auto) 0.1 Baso # (Auto) 0.1 Abs Immat Gran (auto) 0.10 H Absolute Neuts (auto) 7.5 H Absolute Nucleated RBC 0.000 Nucleated RBC % 0.0 Sodium 135 L Potassium 2.9 L Chloride 103 Carbon Dioxide 28 Anion Gap 4 BUN 22 H Creatinine 0.60 L Estim Creat Clear Calc 60 Estimated GFR > 60 Glucose 127 H Calcium 8.2 L Total Bilirubin 1.2 AST 68 H ALT 27 Alkaline Phosphatase 76 Total Protein 7.0 Albumin 3.3 L
--- NOTE | 2024-06-14 12:19 | PM.DS ---
DS: Admitting Diagnosis Discharge Date 06/14/2024 Admitting Diagnosis Chest pain DS: Discharge Diagnosis Discharge Diagnosis (1) Acute ST elevation myocardial infarction (STEMI) of inferior wall: Code(s): I21.19 - ST elevation (STEMI) myocardial infarction involving other coronary artery of inferior wall Status: Acute DS: Summary Hospital Course Hospital Course: Patient with presents with upper back pain for the past few days. Chest/Abdomen/Pelvis CTA was negative for PE and for thoracic and abdominal aortic atherosclerosis, aneurysm or dissection. EKG showed nonspecific T-wave abnormalities and CP was treated with NTG. Repeat EKG however showed acute inferior STEMI and medical lab tech instructor was activated Acute STEMI with 100% occlusion mid-distal LCX status post balloon angioplasty and stenting of totally occluded mid-distal left circumflex artery, aspiration thrombectomy and intracoronary injection with modest buddhism in the flow in the distal vessel. Also with diffuse 70-80% stenosis ostial-proximal segment of OM1 branch; diffuse 50-60% stenosis mid LAD; diffuse 70% stenosis proximal segment of major diagonal branch Echo showing normal LV size, akinesis of the basal inferolateral, basal inferior septal, and basal inferior milan, systolic fxn preserved (EF 50-55%) and moderate MR. Patient was treated with heparin drip. She completed Integrilin. NTG drip weaned off P.r.n. morphine available for CP. Continue aspirin, Brilinta, Lipitor, Losartan, Metoprolol. Imdur added. Medical therapy is treated. Follow-up with Cardiology to discuss complete coronary revascularization Appreciate Cardiology input Okay per Cardiology to discharge # Left basilar pneumonia Patient has a dry cough, middle chest pain associated with deep breath and cough, suspecting pleuritic chest pain Patient has leukocytosis Start doxycycline 100 mg b.i.d. p.o., ceftriaxone 1 g IV daily. Will change to oral antibiotics to complete the course # Hypertension: Blood pressure remains well controlled. Will continue to monitor # Mixed hyperlipidemia: AST continues to rise o/w LFTs normal. LDL 95, HDL 56, TG [address] Continue Atorvastatin Monitor LFTs # Nausea & vomiting: Related to above. P.r.n. Zofran available Continue clear liquid diet and advanced as tolerated # leukocytosis - WBC is trending down and resolved. Probably stress response. No fevers. no sign of infection now # paroxysmal atrial fibrillation due to acute infarct. Follow-up as an outpatient basis # DVT prophylaxis - Sumi # Code Status - Full Code Time Spent with Patient Time attestation: Total time spent providing and/or coordinating discharge services: 35 minutes Exam Narrative: GENERAL: Pleasant, in no acute distress. Well-nourished. - EYES: EOMI. Anicteric. - HENT: Moist mucous membranes. - LUNGS: Clear to auscultation bilaterally, no wheezing, rhonchi, or rales. - CARDIOVASCULAR: Regular rate and rhythm. No murmur. No JVD. - ABDOMEN: Soft, non-tender and non-distended. No palpable masses. - EXTREMITIES: No edema. Peripheral pulses 2+. Non-tender. - NEUROLOGIC: No focal neurological deficits. CN II-XII grossly intact. - PSYCHIATRIC: Awake, Alert and oriented x 3. Appropriate mood and affect. - SKIN: No rashes or lesions. Warm. - LYMPH: No cervical lymphadenopathy. DS: Data Data Completed and Pending Completed studies during hospitalization: Exam Type: CA echo dop color flow w con Study Info Indications - Post MD I21.4 - Non-ST elevation (NSTEMI) myocardial infarction Complete two-dimensional, color flow and Doppler transthoracic echocardiogram is performed. Summary 1. Complete two-dimensional, color flow and Doppler transthoracic echocardiogram is performed. 2. The left ventricle is normal in size. There is akinesis of the basal inferolateral, basal inferior septal, and basal inferior milan. The overall systolic function appears to be preserved with an LVEF estimated to be 50-55%. 3. The mitral valve is thickened. There is at least moderate posteriorly directed mitral regurgitation. Left Ventricle The left ventricle is normal in size. There is akinesis of the basal inferolateral, basal inferior septal, and basal inferior milan. The overall systolic function appears to be preserved with an LVEF estimated to be 50-55%. Right Ventricle The right ventricle is normal in size and systolic function. Left Atria The left atria is mildly enlarged. Right Atria The right atrium is normal in size. Aortic Valve The aortic valve is trileaflet and sclerotic. There is no aortic stenosis. There is moderate aortic regurgitation. Pulmonic Valve The pulmonic valve is not well visualized. There is mild pulmonic valve regurgitation by color Doppler. Mitral Valve The mitral valve is thickened. There is at least moderate posteriorly directed mitral regurgitation. Tricuspid Valve The tricuspid valve is normal. There is mild tricuspid regurgitation. Pericardium/Pleural Pericardium is normal in appearance with no evidence for significant pericardial effusion. Inferior Vena Cava Dilated inferior vena cava with <50% collapse upon inspiration consistent with elevated right atrial pressure, 15 mmHg. Labs on day of discharge: Labs from last 24 hours 06/14/24 05:10 WBC 9.9 RBC 4.00 L Hgb 11.7 L Hct 34.8 L MCV 87.0 MCH 29.3 MCHC 33.6 RDW 13.6 Plt Count 199 MPV 11.8 H Immature Gran % (Auto) 1.0 H Neut % (Auto) 75.8 H Lymph % (Auto) 11.6 L [place] % (Auto) 10.2 H Eos % (Auto) 0.9 Baso % (Auto) 0.5 Lymph # (Auto) 1.15 [place] # (Auto) 1.0 H Eos # (Auto) 0.1 Baso # (Auto) 0.1 Abs Immat Gran (auto) 0.10 H Absolute Neuts (auto) 7.5 H Absolute Nucleated RBC 0.000 Nucleated RBC % 0.0 Sodium 135 L Potassium 2.9 L Chloride 103 Carbon Dioxide 28 Anion Gap 4 BUN 22 H Creatinine 0.60 L Estim Creat Clear Calc 60 Estimated GFR > 60 Glucose 127 H Calcium 8.2 L Total Bilirubin 1.2 AST 68 H ALT 27 Alkaline Phosphatase 76 Total Protein 7.0 Albumin 3.3 L Procedures/Treatments: Cardiac Cath Procedure Note Date of procedure:: 06/10/24 Performing physician:: Brendan Pool MD Procedure Procedure performed:: EMERGENT CARDIAC CATHETERIZATION AND PRIMARY PERCUTANEOUS CORONARY INTERVENTION REPORT DATE OF PROCEDURE: 06/10/2024 INDICATION FOR PROCEDURE: Delayed presentation Acute coronary syndrome-inferior ST-elevation myocardial infarction BRIEF CLINICAL HISTORY: 79-year-old female with hypertension, dyslipidemia. No known prior cardiac history. Patient presented to [facility] Emergency room with 2 day history of persistent chest pain which got worse today. In the ER, her initial EKG showed nonspecific T-wave abnormality. Subsequent EKG showed ST elevation in the inferior leads. Cardiac catheterization was activated for primary PCI. PROCEDURES PERFORMED: 1. Emergent left heart catheterization- Selective left and nonselective right coronary angiogram; left ventriculogram and hemodynamic assessment 2. Primary percutaneous coronary intervention- a) balloon angioplasty and stenting of totally occluded mid-distal left circumflex artery using 3.0 x 30 mm and 2.5 x 13 mm Biotronik sirolimus eluting stents in an overlapping fashion with no reflow phenomena; followed by aspiration thrombectomy, intracoronary injection of available medications including nitroprusside, adenosine, epinephrine with modest buddhism in the flow in the distal vessel; 3. Moderate sedation-CPT code 83687 and beyond MODERATE SEDATION: Midazolam 1 mg; fentanyl 50 mcg. Start time 1552 , Stop time ; Total [id number] time 156 minutes; Elidia Miller RN was trained observer for moderate sedation. ACCESS SITE: Right radial artery PROCEDURE NOTE: patient was was emergently brought to catheterization lab and prepped and draped in a usual sterile manner. After local anesthesia with lidocaine, right common radial artery access was taken with micropuncture needle followed by insertion of a 6 Nauruan sheath. patient received 100 mcg of nitroglycerin, 2.5 mg of verapamil through the radial sheath. During intervention, patient received bivalirudin for procedure anticoagulation. Selective left coronary angiogram was initially performed using JL 3.5 diagnostic catheter. There was difficulty in engaging the right coronary artery with a JR4 catheter despite multiple attempts. The same catheter was advanced in the LV cavity, left ventriculogram was performed followed by LV pressure measurement. After this, additional attempts were made to selectively engage RCA, however, it could not be visualized on nonselective angiogram. After this, attention was shifted to the PCI on the totally occluded left circumflex artery which appeared to be the culprit vessel for presentation. FINDINGS: LEFT MAIN CORONARY: Medium caliber vessel, mild plaque in the distal segment. LEFT ANTERIOR DESCENDING ARTERY: LAD is a medium caliber vessel the proximal -mid segment; tapers distally and reaches Kailyn PACs. There is diffuse 50-60% stenosis in the mid segment. Major diagonal branch is a medium caliber vessel with diffuse 70% stenosis in the proximal segment. LEFT CIRCUMFLEX ARTERY: LCX is a medium to large caliber vessel, likely dominant vessel. Gives rise to medium caliber OM1 branch which has diffuse 70-80% stenosis at the ostium-proximal segment. The LCX is totally occluded in the mid -distal segment with significant thrombus burden. RIGHT CORONARY ARTERY: Could not be visualized, probably nondominant or occluded. LEFT VENTRICULOGRAM: Hyperdynamic LV systolic function, ejection fraction more than 70%, LVEDP elevated at 29 mmHg. HEMODYNAMIC ASSESSMENT: Opening pressure 134/74 mmHg , closing pressure 167/80 mmHg , LVEDP 29 mmHg; no significant gradient across aortic valve on the pullback of pigtail catheter. INTERVENTION REPORT: patient received bivalirudin for procedural anticoagulation. She had already received aspirin prior to arrival to the medical lab tech instructor. Loading dose of ticagrelor was given in the medical lab tech instructor. Coronary angiogram showed totally occluded mid and distal LCX which appeared to be culprit vessel for clinical presentation. Left main coronary artery ostium was selectively engaged using 6 Nauruan Q 3.5 guide catheter. After several attempts, the total occluded mid-distal LCX was crossed using 0.014 private pilot 150 wire. The wire was advanced in the distal LCX. Low inflation balloon angioplasty was performed using a 2.5 x 10 mm compliant balloon. This resulted in the buddhism of the flow in the vessel. After this, IC nitroglycerin was given which showed angiographic improvement. Next, a 3.0 x 30 mm Biotronik sirolimus eluting stent was advanced, however, there was difficulty in advancing the stent. After this, 6 Nauruan GuideLiner was used. Despite lack, the stent could not be advanced. After this, balloon angioplasty was again performed using 3.0 x 20 mm compliant balloon. After this, the same stent was advanced, and was deployed at the target lesion. Post deployment angiogram showed no flow distal to the vessel. In light of this, a 2.5 x 13 mm stent was deployed in the distal edge of the stent to cover possible geographical miss. The stent was deployed at nominal pressures. After this, angiogram showed no reflow. due to significant thrombus burden, we proceeded with aspiration thrombectomy using export catheter with extraction of small amount of thrombus. Angiogram showed no improvement in the distal follow-up. In light of the no reflow phenomena and thrombus burden, following available medications in the medical lab tech instructor were utilized intracoronary- nitroprusside, adenosine and epinephrine; and eptifibatide. There was modest improvement in the flow in the distal vessel. Patient had chest discomfort during no reflow phenomena, and had an episode of vomiting. She remained hemodynamically stable though. After improvement in the distal flow, patient's chest failed significantly improved. At this time, additional attempts for any intervention was not performed. Patient was continued on Bivalirudin, and was initiated on eptifibatide drip. She will be re-loaded with loading dose of ticagrelor as she vomited in the medical lab tech instructor. The sheath was taken out and radial band was applied for local hemostasis. CONCLUSIONS: 1. CAD- a)100% thrombotic occlusion mid-distal left circumflex artery ( infarct related vessel); diffuse 70-80% stenosis ostial-proximal segment of OM1 branch; b) diffuse 50-60% stenosis mid LAD; diffuse 70% stenosis proximal segment of major diagonal branch 2. Hyperdynamic LV systolic function, ejection fraction more than 75%; LVEDP elevated at 29 mmHg. 3. Primary PCI- PTCA/stenting of mid-distal LCX using 3.0 x 30 mm and 2.5 x 10 mm Biotronik sirolimus eluting stents in an overlapping fashion ( significant thrombus burden and no reflow post stenting- treated with aspiration thrombectomy, and available medications in the medical lab tech instructor including intracoronary eptifibatide, nitroprusside, adenosine and epinephrine with modest improvement in the distal flow). PLAN/RECOMMENDATIONS: 1. Admit to ICU. 2. Reload with ticagrelor as patient vomited in the medical lab tech instructor; continue dual antiplatelet therapy with aspirin and ticagrelor; high-dose statin. 3. Eptifibatide IV for next 18-24 hours, along with heparin after bivalirudin drip is complete. 4. Echo Doppler to rule out any mechanical complications of delayed presentation MD. 5. Staged PCI of OM branch; and functional assessment of mid LAD in near future. 6. Labs including CBC, CMP, troponin trend, lipid panel, HbA1c. 7. Patient, her family and ICU team updated. This document was completed by using [email or web address] Fluency Direct speech recognition software, therefore, sports marketing specialist variances may occur. Imaging Radiologist's impression: ITS Impressions Chest X-Ray 06/10/24 13:23 IMPRESSION: 1. Cardiomegaly. Chest/Abdomen/Pelvis CTA 06/10/24 14:47 IMPRESSION: Thoracic and abdominal aortic atherosclerosis. No thoracic or abdominal aortic aneurysm or dissection Cardiomegaly Cholelithiasis Chest X-Ray 06/12/24 11:00 IMPRESSION: 1. Mild pulmonary edema. 2. Cardiomegaly. Chest X-Ray 06/13/24 14:22 IMPRESSION: 1. Likely congestive heart failure with cardiomegaly and mild pulmonary edema and the lower lungs. 2. Small left pleural effusion with associated left basilar atelectasis or pneumonia. Discharge Plan Discharge Attending physician on discharge: Tk Harper Consulting providers: Judd Helton; Brendan Pool; Howard Ramirez Discharging Clinician: Tk Harper Anticipated Discharge Date/Time: 06/14/24 12:26 Patient Disposition: Home Health Service Activity: as tolerated Diet: heart healthy Discharge Instructions: Per Care Coordination: [facility] ([phone]) will call to set up initial visit. [facility] [address] [place] [address] DISCHARGE INSTRUCTIONS - POST PCI Activity 1. No driving until . 2. No lifting, pushing or pulling more than 10 pounds for 1 week. 3. No strenuous exercise or activity (including sexual activity) until you are released to do so. 4. May shower but no tub baths or swimming pool for 1 week. Avoid commercial hot tubs. They are too hot. Medications DO NOT STOP YOUR MEDICATIONS ONLY YOUR PRINCIPLE INDUSTRIAL HYGIENIST CAN STOP THE FOLLOWING MEDICATIONS - PLEASE CALL THE OFFICE WITH QUESTIONS. *Aspirin *Ticagrelor (Brilinta) *Atorvastatin *Lisinopril or ARB *Metoprolol tartrate or succinate *Clopidogrel (Plavix) *Prasugrel (Effient) Important Reminders 1. Keep your stent card in your wallet at all times 2. Follow a heart healthy diet paying extra attention to cholesterol and fats. 3. Stay hydrated. 4. If you have chest pain unrelieved by rest or nitroglycerin (if prescribed) call 911 immediately. 5. If you miss one dose of Brilinta (if prescribed) take a tablet at the next time due. If you miss 2 doses take a tablet when you remember and resume at the next time due. *For any other questions please call the office at [phone]. Office hours are 8AM 4:30PM Tuesday through Tuesday. Patient Instructions: Antibiotic Form, Metoprolol (By mouth), Isosorbide Mononitrate (By mouth), Atorvastatin (By mouth), Ticagrelor (By mouth), Heart Attack (DC), Cardiac Rehabilitation (DC), Heart Catheterization (DC), Coronary Intravascular Stent Placement (DC), After Radial Heart Catheterization (GEN), High Troponin Levels (ED) Stand Alone Forms: General Discharge Information Follow-up/Referrals: Judd Helton MD [Physician] - 2 Weeks Meme Richardson DO [Primary Care Provider] - 1 Week Discharge Medications: New Brilinta 90 mg Tablet 90 mg PO Q12HR Qty: 60 11RF metoprolol succinate 50 mg Tablet Extended Release 24 Hr 50 mg PO QAM Qty: 30 0RF sennosides-docusate sodium [Senokot-S] 8.6-50 mg Tablet 1 tab PO HS Qty: 30 0RF doxycycline hyclate 100 mg Tablet 100 mg PO Q12HR Qty: 12 0RF atorvastatin 40 mg Tablet 40 mg PO DAILY Qty: 30 0RF isosorbide mononitrate 30 mg Tablet Extended Release 24 Hr 30 mg PO QAM Qty: 30 0RF Continued aspirin 81 mg tablet,chewable 81 mg PO DAILY glucosamine-chondroitin 750-600 mg tablet,chewable 2 tablet PO BID cholecalciferol (vitamin D3) 1,000 unit capsule 1,000 unit PO DAILY losartan 25 mg tablet 25 mg PO DAILY Rx Instructions: TAKE 1 TABLET BY MOUTH DAILY PreserVision AREDS-2 250-90-40-1 mg Capsule 1 cap PO BID Discontinued pravastatin 10 mg Tablet 10 mg PO DIRECTED Rx Instructions: every 2 days naproxen sodium [Aleve] 220 mg tablet 220 mg PO DAILY doxycycline hyclate 20 mg tablet 100 mg PO BID Date of admission: 06/10/24 15:01 Primary Care Provider: Meme Richardson Admitting Provider: Jeison Potts Attending physician on admission: Jeison Potts Condition: Improved
[2024-06-14] MEDS: POTASSIUM CHLORIDE 20 MEQ ER TABLET 40 MEQ PO (12:32)
== END 2024-06-14 13:27 | disposition home health service (06) | DRG 321 ==
LOC: ANHED 15:06 → ANHICU 15:25 → ANHIMU 06-13 09:20 → ANHICU 06-15 08:58
PROVIDERS: Internal Medicine; Internal Medicine Cardiovascular Disease; Nurse Practitioner Acute Care; Admitting Provider Internal Medicine Cardiovascular Disease; Emergency Provider Preventive Medicine Aerospace Medicine; PCP Family Medicine; Visit Provider Internal Medicine
PROC: 4A023N7 Measurement of Cardiac Sampling and Pressure, Left Heart, Percutaneous Approach (ICD-10-PCS; CPT 93452; principal; 2024-06-10 15:15)
PROC: 027035Z Dilation of Coronary Artery, One Artery with Two Drug-eluting Intraluminal Devices, Percutaneous Approach (ICD-10-PCS; 2024-06-10 15:15)
DX: I21.21 ST elevation (STEMI) myocardial infarction involving left circumflex coronary artery (principal); J18.9 Pneumonia, unspecified organism; J95.89 Other postprocedural complications and disorders of respiratory system, not elsewhere classified; I24.89 Other forms of acute ischemic heart disease; I25.10 Atherosclerotic heart disease of native coronary artery without angina pectoris; I25.5 Ischemic cardiomyopathy; I48.0 Paroxysmal atrial fibrillation; I10 Essential (primary) hypertension; R11.2 Nausea with vomiting, unspecified; E88.810 Metabolic syndrome; E78.5 Hyperlipidemia, unspecified; M47.812 Spondylosis without myelopathy or radiculopathy, cervical region; M81.0 Age-related osteoporosis without current pathological fracture; Z79.82 Long term (current) use of aspirin
CPT/HCPCS: 36415; 71045; 71046; 71275; 74174; 80053; 80061; 83036; 83690; 83735; 84484; 85025; 85610; 85730; 87641; 93005; 93458; 97161; 97165; 97530; 97535; 99291; A9270; C1725; C1757; C1769; C1874; C1887; C1894; C8929; C9606; J0153; J0171; J0583; J0696; J1327; J1644; J1650; J1940; J2003; J2250; J2270; J2305; J2405; J2470; J2765; J3010; J7030; J7040; J7050; Q9957; Q9967

== ENCOUNTER 2024-06-27 08:12 | Outpatient (CLI) | payer MEDICARE, SELFPAY ==
--- NOTE | ~2024-06-27 | XR_ITS ---
XR chest 2V Ordering provider: Meme Richardson DO History: 79 years Female with . J18.9 - Pneumonia? HX HEART ATTACK 3 WKS AGO, COUGH NOW . Comparison: None. FINDINGS: MEDIASTINUM: The cardiac silhouette is not enlarged. LUNGS: No infiltrates, effusions or pneumothorax. OTHER: No free air under the diaphragm. Dextroscoliosis. Degenerative changes of the spine. IMPRESSION: No acute cardiopulmonary pathology. Reviewed, dictated and finalized at location A. TECHNICIAN
== END 2024-06-27 08:13 | disposition home or self-care (01) ==
PROVIDERS: PCP Family Medicine; Visit Provider Family Medicine
DX: J18.9 Pneumonia, unspecified organism (principal)
CPT/HCPCS: 71046

== ENCOUNTER 2024-11-19 10:12 | Outpatient (CLI) | payer MEDICARE, SELFPAY ==
--- NOTE | ~2024-11-19 | XR_ITS ---
XR chest 2V Ordering provider: Trina Newman, BOTTOM TURNER History: 79 years Female with . SOB/CABG AUGUST 2024 . Comparison: June 27, 2024 FINDINGS: MEDIASTINUM: The cardiac silhouette is slightly enlarged. Postoperative changes in the mediastinum are noted. LUNGS: No pneumothorax. Opacification in the left lower lobe is seen suggestive of atelectasis versus pneumonia with pleural effusion. Elevation of the left hemidiaphragm is seen. OTHER: No free air under the diaphragm. Degenerative changes of the spine. IMPRESSION: Left basilar atelectasis versus pneumonia with pleural effusion. Follow-up advised. Reviewed, dictated and finalized at location A. IMPRESSION: Left basilar atelectasis versus pneumonia with pleural effusion. Follow-up advi sed.
--- OUTSIDE RECORDS SUMMARY | 2024-11-19 11:42 | XMS_ITS | Encounter Summary ---
Author Organization [facility] Healthcare Address [address] [place] [address] Care Team Providers Care Director Of Content And Programming Name Role Phone Meme Richardson Primary Care Provider [phone] Ginioswaldo Mememo Mackenzie DO Primary Care Provider [phone]- [phone] Dusty Bernal MD Unavailable [phone] Brendan Pool MD Unavailable Miscellaneous, Not In File Unavailable Unava ilable Encounter Details Date Type Department Care Team (Late st Contact Info) Description 06/13/2024 Orders Only [facility] Health Information Management [address] [place] [id number] Tere Schmitt MD [address] [place] [id number] Social History Tobacco Use Types Packs/Day Years Used Date Smoking Tobacco: Never Assessed Comments Unknown Sex and Gender Information Value Date Recorded Sex Assigned at Not on file Legal Sex Female 1:23 PM CDT Gender Identity Not on file Sexual Orientation Not on file documented as of this encounter Plan of Treatment Not on file documented as of this encounter Procedures Procedure Name Priority Date/Time Associated Diagnosis Comments SCAN - RADIOLOGY/IMAGING 06/13/2024 documented in this encounter Results * SCAN - RADIOLOGY/IMAGING (06/13/2024) Anatomical Region Laterality Modality Other us Ripa Glynn Schmitt MD Final R esult documented in this encounter Visit Diagnoses Not on filedocumented in this encounter Care Teams Director Of Content And Programming Relationship Specialty Start Date End Date Meme Richardson DO [address] [place] [address] PCP - General Family Medicine 06/10/24 09/09/24 Meme Richardson DO [address] [place] [address] PCP - General Family Medicine 09/10/24 Dusty Bernal MD [address] [facility] [id number] Surgeon Cardiothoracic Surgery 09/10/24 Brendan Pool MD [address] [facility] [address] [place] [address] Consulting Physician Cardiology 09/10/24 Miscellaneous, Not In File 09/10/24 documented as of this encounter
--- OUTSIDE RECORDS SUMMARY | 2024-11-19 11:42 | XMS_ITS | Encounter Summary ---
Author Organization [facility] Healthcare Address [address] [place] [address] Care Team Providers Care Bullet Maker Name Role Phone Meme Richardson DO Primary Care Provider [phone] Dusty Bernal MD Unavailable [phone] Brendan Pool MD Unavailable Miscellaneous, Not In File Unavailable Unava ilable Encounter Details Date Type Department Care Team (Late st Contact Info) Description 11/19/2024 Telephone [facility] Cardiology [address] [place] [address] Brenadn Pool MD [address] [address] Social History Tobacco Use Types Packs/Day Years Used Date Smoking Tobacco: Never Smokeless Tobacco: Never OASIS D0700: Social Isolation Answer Da te Recorded Frequency of experiencing loneliness or isolatio n Never 10/23/2024 OASIS A1250: Transportation Answer Date Recorded Lack of Transportation (Medical) No 10/23/2024 Lack of Transportation (Non-Medical) No 10/23/2024 Patient Unable or Declines to Respond No 10/23/2024 OASIS B1300: Health Literacy Answer Karl e Recorded Frequency of needing help to read materials from doctor or pharmacy Never 10/23/2024 [facility] Utilities Answer Date Recorded In the past 12 months has th e Pricing Engine, gas, oil, or water company threatened to shut off services in your home? No 08/30/2024 Social Connection and Isolat ion Panel [NHANES] Answer Date Recorded In a typical week, how many times do you talk on the phone with family, friends, or neighbors? More than three times a week 08/30/2024 How often do you get togethe r with friends or relatives? Once a week 08/30/2024 How often do you attend chur ch or moravian services? More than 4 times per year 08/30/2024 Do you belong to any clubs o r organizations such as congregational groups, unions, fraternal or athletic groups, or school groups? Yes 08/30/2024 How often do you attend meet ings of the clubs or organizations you belong to? More than 4 times per year 08/30/2024 Are you , , di vorced, , never , or living with a partner? 08/30/2024 AUDIT-C Answer Date Recorded Q1: How often do you have a drink containing alc ohol? Monthly or less 08/30/2024 Q2: How many drinks containi ng alcohol do you have on a typical day when you are drinking? 1 or 2 08/30/2024 Q3: How often do you have si x or more drinks on one occasion? Never 08/30/2024 Overall Financial Resource Strain (CARDIA) Answe r Date Recorded How hard is it for you to pa y for the very basics like food, housing, medical care, and heating? Not hard at all 08/30/2024 Hunger Vital Sign Answer Date Recorded Within the past 12 months, y ou worried that your food would run out before you got the money to buy more. Never true 08/30/19 25 Within the past 12 months, t he food you bought just didn't last and you didn't have money to get more. Never true 08/30/2024 PRAPARE - Transportation Answer Date Re corded In the past 12 months, has l ack of transportation kept you from medical appointments or from getting medications? No 08/15 In the past 12 months, has l ack of transportation kept you from meetings, work, or from getting things needed for daily living? No 08/30/2024 Housing Stability Vital Sign Answer Karl e Recorded In the last 12 months, was t here a time when you were not able to pay the mortgage or rent on time? No 08/30/2024 In the past 12 months, how m any times have you moved where you were living? 0 08/30/2024 At any time in the past 12 m [facility], were you homeless or living in a mcc (including now)? No 08/30/2024 Personal Safety Answer Date Recorded Have you ever been in or are you currently in a harmful physical or emotional relationship or is someone making you feel afraid or unsafe? Denies 08/28/2024 Comments Unknown Sex and Gender Information Value Date Recorded Sex Assigned at Not on file Legal Sex Female 1:23 PM CDT Gender Identity Not on file Sexual Orientation Not on file documented as of this encounter Miscellaneous Notes * Telephone Encounter - Janet De La Paz - 11/19/2024 11:24 AM CDT Pt requesting a call back to discuss her chest x-ray. Her and her daughter went to get her blood work and x-ray and while they were waiting the pts PCP called and said they looked at the x-ray and they believe it to be Pneumonia. They would like to know what they need to do. Thank you. Contact: documented in this encounter Plan of Treatment Not on file documented as of this encounter Visit Diagnoses Not on filedocumented in this encounter Care Teams Bullet Maker Relationship Specialty Start Date End Date Meme Richardson DO [facility] [facility] [address] [place], [place] [id number] PCP - General Family Medicine 09/10/24 Dusty Bernal MD [id number] [place] [address] Surgeon Cardiothoracic Surgery 09/10/24 Brendan Pool MD [address] [place] [address] Consulting Physician Cardiology 09/10/24 Miscellaneous, Not In File 09/10/24 documented as of this encounter
--- OUTSIDE RECORDS SUMMARY | 2024-11-19 11:42 | XMS_ITS | Clinical Summary ---
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 Role Phone Meme Richardson DO Primary Care Provider [phone] Dusty Bernal MD Unavailable [phone] Brendan Pool MD Unavailable Miscellaneous, Not In File Unavailable Unava ilable Allergies Active Allergy Reactions Criticality Noted Date Comments Niacin Headache Low 07/10/2024 Qrtyadc-Zkg-Rvr Reductase Inhibitors Other (See comments) Low 07/10/2024 Certain statins caused muscle weakness Medications cholecalciferol, vitamin D3, 1,000 unit tablet,chewableI ndications:suppl ement Take 1 tablet/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 Active atorvastatin (LIPITOR) 40 mg tabletIndication s:hyperlipidemia Take 1 tablet (40 mg total) by mouth daily 90 tablet 3 07/02/20 24 Active cetirizine 10 mg capsuleIndicatio ns:Allergic Rhinitis Take 1 tablet by mouth 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 Active fluticasone propionate (FLONASE) 50 mcg/actuation nasal sprayIndications :Allergic Rhinitis Administer 1 spray into each nostril daily Active acetaminophen 500 mg capsuleIndicatio ns:Fever,Pain,mi ld to moderate pain Take 2 capsules (1,000 mg total) by mouth every 6 (six) hours as needed for fever or pain 09/10/19 25 Active famotidine (PEPCID) 20 mg tabletIndication s:gastroesophage al reflux disease TAKE 1 TABLET(20 MG) BY MOUTH DAILY 90 tablet 1 09/10/19 25 Active glycerin suppositoryIndic ations:constipat ion Insert 1 suppository into the rectum daily as needed for constipation over the counter med Active simethicone (MYLICON) 125 mg chewable tabletIndication s:Flatulence Take 1 tablet (125 mg total) by mouth every 6 (six) hours as needed for flatulence 09/27/19 25 Active clopidogreL (PLAVIX) 75 mg tabletIndication s:Myocardial Reinfarction Prevention TAKE 1 TABLET(75 MG) BY MOUTH DAILY 30 tablet 2 10/02/19 25 Active apixaban (Eliquis) 5 mg tabletIndication s:VTE Prophylaxis TAKE 1 TABLET(5 MG) BY MOUTH TWICE DAILY 60 tablet 2 10/02/19 25 Active psyllium (KONSYL) powderIndication s:constipation Take 1 Application by mouth daily. Indications: constipation 10/01/19 25 Active senna-docusate (Senna-S) 8.6-50 mg Take 1 tablet by mouth daily 09/11/19 25 Active lidocaine (LIDODERM) 5 % Place 1 patch on the skin daily Remove & discard patch within 12 hours or as directed by MD. Active metoprolol tartrate (LOPRESSOR) 25 mg immediate release tabletIndication s:hypertension Take 0.5 tablets (12.5 mg total) by mouth 2 (two) times a day 30 tablet 11 10/10/19 25 026 Active losartan (COZAAR) 25 mg tablet Take 1 tablet (25 mg total) by mouth daily 10/01/19 25 Active sertraline (ZOLOFT) 50 mg tablet Take 1 tablet (50 mg total) by mouth daily 10/23/19 25 Active losartan (COZAAR) 50 mg tabletIndication s:hypertension Take 0.5 tablets (25 mg total) by mouth daily 1/2 tab daily for HTN and monitor BP readings. 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 025 Discontin ued(Alter ramsey therapy) Active Problems Problem Noted Date Diagnosed Date Coronary artery disease (CAD) excluded Mitral valve insufficiency 08/06/2024 Coronary artery disease of n ative heart with stable angina pectoris 07/24/2024 Coronary artery disease of n ative artery of [place] heart with stable angina pectoris 06/28/2024 Encounters Date Type Department Care Team Description 11/19/2024 9:00 AM CDT Office Visit [facility] [address] [place] [address] [address] [place] [phone] Trina Newman NP Shortness of breath (Primary Dx); Fatigue, unspecified type; Coronary artery disease of [place] artery of [place] heart with stable angina pectoris; S/P CABG x 4; Status post mitral valve annuloplasty; Statin myopathy; Paroxysmal atrial fibrillation (HCC); Chronic anticoagulation 11/19/2024 Telephone [facility] [address] [place] [address] [place] [phone] Brendan Pool MD 10/23/2024 11:00 AM CDT Home Care Visit [address] [address] [address] [place] [address] Swathi Pepper RN SN OASIS DISCHARGE 10/15/2024 1:00 PM FLOUR BLENDER Home Care Visit [address] [address] [address] [place] [address] Swathi Pepper RN SN HOME VISIT 10/12/2024 Telephone [facility] [address] [place] [address] [place] [phone] Brendan Pool MD 10/11/2024 8:30 AM FLOUR BLENDER Home Care Visit [address] [address] [address] [place] [address] Angelica Hernandez, PT PT DISCIPLINE DISCHARGE 10/10/2024 1:00 PM FLOUR BLENDER Office Visit [facility] [address] [facility] [address] [place] [phone] Brendan Pool MD Coronary artery disease of [place] artery of [place] heart with stable angina pectoris (Primary Dx); History of ST elevation myocardial infarction (STEMI); S/P CABG x 4; Status post mitral valve annuloplasty; Paroxysmal atrial fibrillation (HCC) 10/08/2024 10:00 AM FLOUR BLENDER Home Care Visit [address] [place] [address] Swathi Pepper RN SN HOME VISIT 10/08/2024 8:30 AM FLOUR BLENDER Home Care Visit [address] [place] [address] Angelica Hernandez, PT PT HOME VISIT 10/04/2024 8:30 AM FLOUR BLENDER Home Care Visit [address] [address] [address] [place] [address] Angelica Hernandez, PT PT HOME VISIT 10/03/2024 Home Care Visit [address] [address] [address] [place] [address] Adrienne Caldera RN SN TRIAGE ENCOUNTER 10/03/[address] [facility] [address] [place] [address] [address] [place] [address] Brendan Pool MD 10/01/2024 2:00 PM FLOUR BLENDER Home Care Visit [address] [place] [address] Daily Melendez RN SN HOME VISIT 10/01/2024 8:30 AM FLOUR BLENDER Home Care Visit [address] [place] [address] Angelica Hernandez, PT PT HOME VISIT 09/28/2024 10:00 AM FLOUR BLENDER Home Care Visit [address] [place] [address] Angelica Hernandez, PT PT HOME VISIT 09/27/2024 12:45 PM FLOUR BLENDER Office Visit [facility] Surgery [address] [facility] [address] [place] [phone] Dusty Bernal MD Pleural effusion on left (Primary Dx) 09/27/2024 11:05 AM FLOUR BLENDER - 09/27/2024 11:59 PM FLOUR BLENDER Hospital Encounter [facility] Diagnostic Imaging [address] [place] [address] Pleural effusion on left Discharge Disposition: Discharge to home or self care 09/25/2024 8:00 AM FLOUR BLENDER Home Care Visit [address] [place] [address] Angelica Hernandez, PT PT HOME VISIT 09/24/2024 12:12 PM FLOUR BLENDER - 09/24/2024 11:59 PM FLOUR BLENDER Hospital Encounter [facility] [address] [place] [address] Discharge Disposition: Discharge to home or self care 09/24/2024 11:00 AM FLOUR BLENDER Home Care Visit [address] [place] [address] Swathi Pepper, NICKI SN HOME VISIT 09/24/2024 Home Care Visit [address] [place] [address] Swathi Pepper, RN TELEPHONE ENCOUNTER 09/21/2024 8:30 AM FLOUR BLENDER Home Care Visit [address] [place] [address] Angelica Hernandez, PT PT HOME VISIT 09/20/2024 12:00 PM FLOUR BLENDER Home Care Visit [address] [place] [address] Swathi Pepper, NICKI SN HOME VISIT 09/19/2024 Home Care Visit [address] [place] [address] Swathi Pepper, RN CASE COMMUNICATION 09/19/2024 Home Care Visit [address] [place] [address] Edie Velez RN CASE COMMUNICATION 09/18/2024 3:00 PM FLOUR BLENDER Home Care Visit [address] [place] [address] Swathi Pepper, NICKI SN HOME VISIT 09/15/2024 1:21 PM FLOUR BLENDER - 09/15/2024 11:59 PM FLOUR BLENDER Hospital Encounter [facility] [address] [place] [address] Discharge Disposition: Discharge to home or self care 09/15/2024 10:30 AM FLOUR BLENDER Home Care Visit [address] [place] [address] Leia Almeida LPN SN HOME VISIT 09/14/2024 1:00 PM FLOUR BLENDER Home Care Visit [address] [place] [address] Angelica Hernandez, PT PT INITIAL EVALUATION 09/12/2024 12:00 PM FLOUR BLENDER Home Care Visit [address] [place] [address] Swathi Pepper, NICKI SN OASIS START OF CARE 09/12/2024 Plan of Care Documentation [address] [place] [address] 09/10/[address] [facility] [address] [facility] [address], [place] [address] Meli Lee NP 09/10/2024 Orders Only [facility] Surgery [address] [facility] [address] [place] [address] Truong Yañez NP 09/02/[address] [facility] [address] [place] [address] Roma Reza RN 08/28/2024 7:30 AM FLOUR BLENDER - 08/28/2024 1:00 PM FLOUR BLENDER Surgery [facility] Operating Room [address] [place] [address] Dusty Bernal MD CORONARY ARTERY BYPASS GRAFTX 4 WITH LEFT INTERNAL MAMMARY ARTERY, LEFT RADIAL ARTERY HARVEST AND RIGHT LEG SAPHENOUS ENDOVEIN HARVEST 08/28/2024 7:28 AM FLOUR BLENDER Anesthesia Event [facility] Operating Room [address] [place] [address] Jorge Dyson MD Ware, Melita C., NP 08/28/2024 5:28 AM FLOUR BLENDER - 09/10/2024 1:56 PM FLOUR BLENDER Hospital Encounter [address] [address] Dsuty Bernal MD Coronary artery disease of [place] artery of [place] heart with stable angina pectoris (Primary Dx); Nonrheumatic mitral valve regurgitation Discharge Disposition: Discharge to home, home health skilled care 08/21/2024 Documentation [facility] Surgery [address] [facility] [address] [place] [phone] Truong Yañez NP from Last 3 Months Surgical History Surgery Date Site/Laterality Comments CARDIAC CATHETERIZATION CORONARY ANGIOPLASTY WITH ST ENT PLACEMENT 06/10/2024 x2 stents CATARACT EXTRACTION, BILATERAL TUBAL LIGATION CYST REMOVAL Left collarbone CHEST DRAINAGE W IMAGING RIGHT 09/05/2024 Right CORONARY ARTERY BYPASS GRAFT Aug 28 2024 CARDIAC VALVE REPLACEMENT Repair aug [id number] Medical History Medical History Date Comments Hypertension Hyperlipidemia Past heart attack Cardiac rhythm disturbance STEMI (ST elevation myocardi al infarction) ([facility]) 06/10/2024 CAD (coronary artery disease) 06/10/2024 Vertigo Motion sickness Pneumonia Belching Atrial fibrillation (HCC) paroxy smal atrial fibrillation SOB (shortness of breath) on exertion Delayed emergence from general anesthesia Kidney stone Anxiety Cataract Macular degeneration of left eye GERD (gastroesophageal reflux disease) Aug 28 Heart disease Arthritis Family History Medical History Relation Name Comments Heart attack Father Heart attack Mother Thyroid cancer Mother Heart attack Sister Relation Name Status Comments Father Mother Sister Social History Tobacco Use Types Packs/Day Years Used Date Smoking Tobacco: Never Smokeless Tobacco: Never Tobacco Cessation:Counseling Given: Not Answered OASIS D0700: Social Isolation Answer Da te [...] materials from doctor or pharmacy Never 10/23/2024 [facility] Utilities Answer Date Recorded In the past 12 months has th e [employer], gas, oil, or water [employer] threatened to shut off services in your [...] 08/30/2024 How often do you attend chur or temple services? More than 4 times per year 08/30/2024 Do you belong to any clubs o r organizations such as mandaeism groups, unions, fraternal or athletic groups, or [...] any time in the past 12 m [facility], were you homeless or living in a chcf (including now)? No 08/30/2024 Personal Safety Answer [...] on file Sexual Orientation Not on file Obstetrics History Last Filed Vital Signs Vital Sign Reading Time Taken Comments Blood Pressure 134/64 11/19/2024 9:30 AM CDT Pulse 60 11/19/2024 9:30 AM CDT Temperature 37 C (98.6 F) 10/23/2024 12:05 PM CDT Respiratory Rate 18 10/23/2024 12:05 PM CDT Oxygen Saturation 98% 11/19/2024 9:10 AM CDT Inhaled Oxygen Concentration - - Weight 63.5 kg (140 lb) 11/19/2024 9:10 AM CDT Height 154.9 cm (5' 1 ) 11/19/2024 9:10 AM CDT Body Mass Index 26.45 11/19/2024 9:10 AM CDT Plan of Treatment Health Maintenance Due Date Last Done Comments Albumin Creatinine Ratio, Urine 1945 Depression Screening 1945 Hepatitis C Screening 1945 Osteoporosis Screening-Bone Density Scan 1945 Dilated Eye Exam 1947 Foot Exam 1947 Hepatitis B Screening 1965 Well Visit 65+ 2012 Pneumococcal vaccine 65+ (2 of 2 - PPSV23) 07/14/2015 05/19/2015 DTaP/Tdap/Td Vaccine (1 - Tdap) 02/02/2019 9 Covid-19 Vaccine (8 - 2023-2 5 season) 2024 05/14/2024, 05/23/2023, 05/04/2022, Additional history exists Hemoglobin A1C 01/29/2025 07/31/2024 Lipid Panel 06/10/2025 06/10/2024 Fall Risk Assessment 09/10/2025 09/10/2024 eGFR 09/15/2025 09/15/2024, 08/16, 09/09/2024, Additional history exists Zoster Vaccine Completed 11/03/2023, 08/15, 10/18/2016 Influenza Vaccine Completed 05/14/2024, , 05/24/2022, Additional history exists Medical Devices Implanted Type Area Acid Mixer Device Identifier Shelf Expiration Date Model / Serial / Lot [employer] Chente-Moy stern-Orozco Imr Etlogix 28mm 3d Reduced Curvature [id number] - [id number] - [id number] Implanted:Qty: 1 on 08/28/2024 by Dusty Bernal MD at [facility] Other - see comments N/A: Heart [employer] 08/30/2028 [id number] / [id number] / [employer] Plate Bone Low Profile 6 Hole O Shape Sternum Ti 115.104.06 - [id number] Implanted:Qty: 1 on 08/28/2024 by Dusty Bernal MD at [facility] Plate N/A: Sternum [employer] 115.104. 06 / / [employer] Plate Bone Low Profile 6 Hole H Shape Sternum Ti 115.102.06 - [id number] Implanted:Qty: 1 on 08/28/2024 by Dusty Bernal MD at [facility] Plate N/A: Sternum [employer] 115.102. 06 / / [employer] Plate Bone Low Profile 4 Hole Box Sternum Ti 115.103.04 - [id number] Implanted:Qty: 1 on 08/28/2024 by Dusty Bernal MD at [facility] Plate N/A: Sternum [employer] 115.103. 04 / / [employer] Screw Bone Slf Drl Full Thread Locking 3.5x18mm Ti 100.035.18 - [id number] Implanted:Qty: 2 on 08/28/2024 by Dusty Bernal MD at [facility] Screw N/A: Sternum [employer] 100.035. 18 / / [employer] Screw Bone Slf Drl Full Thread Locking 3.5x16mm Ti 100.035.16 - [id number] Implanted:Qty: 14 on 08/28/2024 by Dusyt Bernal MD at [facility] Screw N/A: Sternum [employer] 100.035. 16 / / Procedures Procedure Name Priority Date/Time Associated Diagnosis Comments XR CHEST PA LATERAL 2 VIEWS Schedule Routine, Read Routine (OP Routine) 09/27/2024 11:22 AM FLOUR BLENDER Pleural effusion on left DIFFERENTIAL AUTO Routine 09/24/2024 12:12 PM FLOUR BLENDER CBC WITH AUTO DIFFERENTIAL Routine 09/24/2024 12:12 PM FLOUR BLENDER CBC WITHOUT DIFFERENTIAL Routine 09/24/2024 12:12 PM FLOUR BLENDER EGFR Routine 09/15/2024 1:21 PM FLOUR BLENDER COMPREHENSIVE METABOLIC PANEL Routine 09/15/2024 1:21 PM FLOUR BLENDER XR CHEST PA LATERAL 2 VIEWS IP Routine 09/10/2024 7:37 AM FLOUR BLENDER EGFR Routine 09/10/2024 1:35 AM FLOUR BLENDER COMPREHENSIVE METABOLIC PANEL Routine 09/10/2024 1:35 AM FLOUR BLENDER CBC WITHOUT DIFFERENTIAL Routine 09/10/2024 1:35 AM FLOUR BLENDER XR CHEST 1 VIEW IP Routine 09/09/2024 6:00 AM FLOUR BLENDER EGFR Routine 09/09/2024 5:21 AM FLOUR BLENDER APTT Routine 09/09/2024 5:21 AM FLOUR BLENDER PROTIME-INR Routine 09/09/2024 5:21 AM FLOUR BLENDER COMPREHENSIVE METABOLIC PANEL Routine 09/09/2024 5:21 AM FLOUR BLENDER CBC WITHOUT DIFFERENTIAL Routine 09/09/2024 5:21 AM FLOUR BLENDER PEP THERAPY Routine 09/08/2024 10:00 PM FLOUR BLENDER PEP THERAPY Routine 09/08/2024 6:00 PM FLOUR BLENDER XR CHEST 1 VIEW IP Routine 09/08/2024 6:05 AM FLOUR BLENDER EGFR Routine 09/08/2024 3:16 AM FLOUR BLENDER MAGNESIUM Routine 09/08/2024 3:16 AM FLOUR BLENDER CBC WITHOUT DIFFERENTIAL Routine 09/08/2024 3:16 AM FLOUR BLENDER RENAL FUNCTION PANEL Routine 09/08/2024 3:16 AM FLOUR BLENDER XR CHEST 1 VIEW IP Routine 09/07/2024 3:27 PM FLOUR BLENDER XR CHEST 1 VIEW IP Routine 09/07/2024 6:20 AM FLOUR BLENDER EGFR Routine 09/07/2024 2:55 AM FLOUR BLENDER MAGNESIUM Routine 09/07/2024 2:55 AM FLOUR BLENDER CBC WITHOUT DIFFERENTIAL Routine 09/07/2024 2:55 AM FLOUR BLENDER RENAL FUNCTION PANEL Routine 09/07/2024 2:55 AM FLOUR BLENDER MRSA ONLY (STAPHYLOCOCCUS AUREUS) PCR Routine 09/06/2024 5:15 PM FLOUR BLENDER ECG 12-LEAD Routine 09/06/2024 10:04 AM FLOUR BLENDER XR CHEST 1 VIEW IP Routine 09/06/2024 6:12 AM FLOUR BLENDER HEPATIC FUNCTION PANEL Add-On 09/06/2024 3:21 AM FLOUR BLENDER EGFR Routine 09/06/2024 3:21 AM FLOUR BLENDER MAGNESIUM Routine 09/06/2024 3:21 AM FLOUR BLENDER CBC WITHOUT DIFFERENTIAL Routine 09/06/2024 3:21 AM FLOUR BLENDER RENAL FUNCTION PANEL Routine 09/06/2024 3:21 AM FLOUR BLENDER CHEST DRAINAGE W IMAGING RIGHT IP Routine 09/05/2024 2:50 PM FLOUR BLENDER XR CHEST 1 VIEW ED Urgent/IP Urgent 09/05/2024 2:47 PM FLOUR BLENDER AEROBIC AND ANAEROBIC CULTURE AND GRAM STAIN Routine 09/05/2024 2:[address] CHEST ABDOMEN PELVIS WO CONTRAST IP Routine 09/05/2024 11:49 AM FLOUR BLENDER PROTIME-INR STAT 09/05/2024 10:07 AM FLOUR BLENDER APTT STAT 09/05/2024 10:07 AM FLOUR BLENDER XR CHEST 1 VIEW IP Routine 09/05/2024 5:10 AM FLOUR BLENDER EGFR Routine 09/05/2024 1:46 AM FLOUR BLENDER MAGNESIUM Routine 09/05/2024 1:46 AM FLOUR BLENDER CBC WITHOUT DIFFERENTIAL Routine 09/05/2024 1:46 AM FLOUR BLENDER RENAL FUNCTION PANEL Routine 09/05/2024 1:46 AM FLOUR BLENDER URINALYSIS, MICROSCOPIC ONLY Routine 09/04/2024 4:50 PM FLOUR BLENDER URINE CULTURE Add-On 09/04/2024 4:50 PM FLOUR BLENDER URINALYSIS AND REFLEX TO MICROSCOPIC AND CULTURE Routine 09/04/2024 4:50 PM FLOUR BLENDER TRANSTHORACIC ECHO (TTE) COMPLETE W DOPPLER/CF WO CONTRAST Routine 09/04/2024 11:24 AM FLOUR BLENDER ECG 12-LEAD STAT 09/04/2024 9:45 AM FLOUR BLENDER XR CHEST 1 VIEW IP Routine 09/04/2024 5:53 AM FLOUR BLENDER HEPATIC FUNCTION PANEL Add-On 09/04/2024 2:47 AM FLOUR BLENDER EGFR Routine 09/04/2024 2:47 AM FLOUR BLENDER MAGNESIUM Routine 09/04/2024 2:47 AM FLOUR BLENDER RENAL FUNCTION PANEL Routine 09/04/2024 2:47 AM FLOUR BLENDER CBC WITHOUT DIFFERENTIAL Routine 09/04/2024 2:45 AM FLOUR BLENDER ECG 12-LEAD Routine 09/03/2024 4:06 PM FLOUR BLENDER XR CHEST PA LATERAL 2 VIEWS IP Routine 09/03/2024 9:51 AM FLOUR BLENDER POCT GLUCOSE DEVICE Routine 09/03/2024 7 :37 AM FLOUR BLENDER XR CHEST 1 VIEW IP Routine 09/03/2024 4:40 AM FLOUR BLENDER EGFR Routine 09/03/2024 4:37 AM FLOUR BLENDER MAGNESIUM Routine 09/03/2024 4:37 AM FLOUR BLENDER CBC WITHOUT DIFFERENTIAL Routine 09/03/2024 4:37 AM FLOUR BLENDER RENAL FUNCTION PANEL Routine 09/03/2024 4:37 AM FLOUR BLENDER POCT GLUCOSE DEVICE Routine 09/02/2024 9 :46 PM FLOUR BLENDER POCT GLUCOSE DEVICE Routine 09/02/2024 5 :45 PM FLOUR BLENDER POCT GLUCOSE DEVICE Routine 09/02/2024 12:43 PM FLOUR BLENDER XR KUB IP Routine 09/02/2024 9:52 AM FLOUR BLENDER POCT GLUCOSE DEVICE Routine 09/02/2024 8 :21 AM FLOUR BLENDER XR CHEST 1 VIEW IP Routine 09/02/2024 6:02 AM FLOUR BLENDER EGFR Routine 09/02/2024 4:08 AM FLOUR BLENDER MAGNESIUM Routine 09/02/2024 4:08 AM FLOUR BLENDER CBC WITHOUT DIFFERENTIAL Routine 09/02/2024 4:08 AM FLOUR BLENDER RENAL FUNCTION PANEL Routine 09/02/2024 4:08 AM FLOUR BLENDER POCT GLUCOSE DEVICE Routine 09/01/2024 10:07 PM FLOUR BLENDER POCT GLUCOSE DEVICE Routine 09/01/2024 4 :54 PM FLOUR BLENDER POCT GLUCOSE DEVICE Routine 09/01/2024 12:17 PM FLOUR BLENDER POCT GLUCOSE DEVICE Routine 09/01/2024 7 :45 AM FLOUR BLENDER XR CHEST 1 VIEW IP Routine 09/01/2024 5:47 AM FLOUR BLENDER EGFR Routine 09/01/2024 2:51 AM FLOUR BLENDER MAGNESIUM Routine 09/01/2024 2:51 AM FLOUR BLENDER CBC WITHOUT DIFFERENTIAL Routine 09/01/2024 2:51 AM FLOUR BLENDER RENAL FUNCTION PANEL Routine 09/01/2024 2:51 AM FLOUR BLENDER POCT GLUCOSE DEVICE Routine 09/01/2024 1 :56 AM FLOUR BLENDER POCT GLUCOSE DEVICE Routine 08/31/2024 9 :52 PM FLOUR BLENDER ECG 12-LEAD Routine 08/31/2024 7:16 PM FLOUR BLENDER EGFR STAT 08/31/2024 7:09 PM FLOUR BLENDER DIFFERENTIAL AUTO STAT 08/31/2024 7:0 9 PM FLOUR BLENDER PHOSPHORUS Routine 08/31/2024 7:09 PM FLOUR BLENDER MAGNESIUM Routine 08/31/2024 7:09 PM FLOUR BLENDER BASIC METABOLIC PANEL STAT 08/31/2024 7:09 PM FLOUR BLENDER CBC WITH AUTO DIFFERENTIAL STAT 08/31/2024 7:09 PM FLOUR BLENDER POCT GLUCOSE DEVICE Routine 08/31/2024 5 :36 PM FLOUR BLENDER POCT GLUCOSE DEVICE Routine 08/31/2024 12:15 PM FLOUR BLENDER XR KUB IP Routine 08/31/2024 8:05 AM FLOUR BLENDER POCT GLUCOSE DEVICE Routine 08/31/2024 7 :33 AM FLOUR BLENDER ECG 12-LEAD Routine 08/31/2024 7:23 AM FLOUR BLENDER CRITICAL CARE Routine 08/31/2024 6:47 AM FLOUR BLENDER Coronary artery disease of [place] artery of [place] heart with stable angina pectoris EGFR Routine 08/31/2024 4:50 AM FLOUR BLENDER OXYHEMOGLOBIN, CENTRAL VENOUS Routine 08/31/2024 4:50 AM FLOUR BLENDER MAGNESIUM Routine 08/31/2024 4:50 AM FLOUR BLENDER CBC WITHOUT DIFFERENTIAL Routine 08/31/2024 4:50 AM FLOUR BLENDER RENAL FUNCTION PANEL Routine 08/31/2024 4:50 AM FLOUR BLENDER XR CHEST 1 VIEW IP Routine 08/31/2024 4:37 AM FLOUR BLENDER POCT GLUCOSE DEVICE Routine 08/30/2024 8 :21 PM FLOUR BLENDER POCT GLUCOSE DEVICE Routine 08/30/2024 5 :26 PM FLOUR BLENDER POCT GLUCOSE DEVICE Routine 08/30/2024 12:21 PM FLOUR BLENDER POCT GLUCOSE DEVICE Routine 08/30/2024 8 :28 AM FLOUR BLENDER CRITICAL CARE Routine 08/30/2024 6:46 AM FLOUR BLENDER Coronary artery disease of [place] artery of [place] heart with stable angina pectoris XR CHEST 1 VIEW IP Routine 08/30/2024 3:48 AM FLOUR BLENDER EGFR Routine 08/30/2024 3:12 AM FLOUR BLENDER LACTATE Routine 08/30/2024 3:12 AM FLOUR BLENDER OXYHEMOGLOBIN, CENTRAL VENOUS Routine 08/30/2024 3:12 AM FLOUR BLENDER MAGNESIUM Routine 08/30/2024 3:12 AM FLOUR BLENDER CBC WITHOUT DIFFERENTIAL Routine 08/30/2024 3:12 AM FLOUR BLENDER RENAL FUNCTION PANEL Routine 08/30/2024 3:12 AM FLOUR BLENDER EGFR STAT 08/29/2024 11:45 PM FLOUR BLENDER DIFFERENTIAL AUTO STAT 08/29/2024 11:45 PM FLOUR BLENDER BASIC METABOLIC PANEL STAT 08/29/2024 11:45 PM FLOUR BLENDER CBC WITH AUTO DIFFERENTIAL STAT 08/29/2024 11:45 PM FLOUR BLENDER LACTATE Routine 08/29/2024 10:40 PM FLOUR BLENDER POCT GLUCOSE DEVICE Routine 08/29/2024 8 :35 PM FLOUR BLENDER POCT GLUCOSE DEVICE Routine 08/29/2024 4 :54 PM FLOUR BLENDER POCT GLUCOSE DEVICE Routine 08/29/2024 3 :22 PM FLOUR BLENDER EGFR Timed 08/29/2024 1:24 PM FLOUR BLENDER CALCIUM,IONIZED, WHOLE BLOOD Timed 08/29/2024 1:24 PM FLOUR BLENDER MAGNESIUM Timed 08/29/2024 1:24 PM FLOUR BLENDER RENAL FUNCTION PANEL Timed 08/29/2024 1:24 PM FLOUR BLENDER POCT GLUCOSE DEVICE Routine 08/29/2024 12:13 PM FLOUR BLENDER POCT GLUCOSE DEVICE Routine 08/29/2024 12:12 PM FLOUR BLENDER POCT GLUCOSE DEVICE Routine 08/29/2024 8 :46 AM FLOUR BLENDER ECG 12-LEAD STAT 08/29/2024 7:44 AM FLOUR BLENDER CRITICAL CARE Routine 08/29/2024 7:00 AM FLOUR BLENDER Coronary artery disease of [place] artery of [place] heart with stable angina pectoris POCT GLUCOSE DEVICE Routine 08/29/2024 6 :22 AM FLOUR BLENDER XR CHEST 1 VIEW IP Routine 08/29/2024 4:30 AM FLOUR BLENDER POCT GLUCOSE DEVICE Routine 08/29/2024 4 :17 AM FLOUR BLENDER EGFR Routine 08/29/2024 4:11 AM FLOUR BLENDER DIFFERENTIAL AUTO Routine 08/29/2024 4:1 1 AM FLOUR BLENDER LACTATE Routine 08/29/2024 4:11 AM FLOUR BLENDER OXYHEMOGLOBIN, CENTRAL VENOUS Routine 08/29/2024 4:11 AM [facility]OUR BLENDER MAGNESIUM Routine 08/29/2024 4:11 AM FLOUR BLENDER RENAL FUNCTION PANEL Routine 08/29/2024 4:11 AM FLOUR BLENDER THYROID FUNCTION CASCADE Routine 08/29/2024 4:11 AM FLOUR BLENDER CBC WITH AUTO DIFFERENTIAL Routine 08/29/2024 4:11 AM FLOUR BLENDER POCT GLUCOSE DEVICE Routine 08/29/2024 2 :59 AM FLOUR BLENDER POCT GLUCOSE DEVICE Routine 08/29/2024 1 :57 AM [facility]OUR BLENDER EXTUBATION Routine 08/29/2024 12:59 AM FLOUR BLENDER POCT GLUCOSE DEVICE Routine 08/29/2024 12:32 AM FLOUR BLENDER CALCIUM,IONIZED, WHOLE BLOOD Routine 08/29/2024 12:28 AM FLOUR BLENDER POTASSIUM, WHOLE BLOOD STAT 08/29/2024 12:28 AM FLOUR BLENDER BLOOD GAS, ARTERIAL STAT 08/29/2024 12:28 AM FLOUR BLENDER POCT GLUCOSE DEVICE Routine 08/28/2024 11:43 PM FLOUR BLENDER LACTATE STAT 08/28/2024 11:02 PM FLOUR BLENDER POCT GLUCOSE DEVICE Routine 08/28/2024 10:43 PM FLOUR BLENDER POTASSIUM, WHOLE BLOOD Timed 08/28/2024 9:44 PM [facility]OUR BLENDER BLOOD GAS, ARTERIAL Timed 08/28/2024 9 :44 PM FLOUR BLENDER POCT GLUCOSE DEVICE Routine 08/28/2024 9 :41 PM FLOUR BLENDER POCT GLUCOSE DEVICE Routine 08/28/2024 8 :35 PM FLOUR BLENDER POCT GLUCOSE DEVICE Routine 08/28/2024 7 :32 PM FLOUR [facility]ENDER CRITICAL CARE Routine 08/28/2024 7:29 PM FLOUR BLENDER Coronary artery disease of [place] artery of [place] heart with stable angina pectoris POCT GLUCOSE DEVICE Routine 08/28/2024 6 :31 PM FLOUR BLENDER EGFR STAT 08/28/2024 6:30 PM FLOUR BLENDER CALCIUM,IONIZED, WHOLE BLOOD STAT 08/28/2024 6:30 PM FLOUR BLENDER CBC WITHOUT DIFFERENTIAL Timed 08/28/2024 6:30 PM FLOUR BLENDER BLOOD GAS, ARTERIAL Timed 08/28/2024 6 :30 PM FLOUR BLENDER BASIC METABOLIC PANEL STAT 08/28/2024 6:30 PM FLOUR BLENDER POCT GLUCOSE DEVICE Routine 08/28/2024 6 :00 PM FLOUR BLENDER POCT GLUCOSE DEVICE Routine 08/28/2024 4 :59 PM FLOUR BLENDER XR CHEST 1 VIEW IP Routine 08/28/2024 4:29 PM [facility]ENDER CRITICAL CARE Routine 08/28/2024 4:24 PM FLOUR BL[employer]ER Coronary artery disease of [place] artery of [place] heart with stable angina pectoris Nonrheumatic mitral valve regurgitation POCT GLUCOSE DEVICE Routine 08/28/2024 4 :04 PM FLOUR BLENDER XR CHEST 1 VIEW Critical/Life-T hreatening 08/28/2024 3:37 PM FLOUR BLENDER POCT GLUCOSE DEVICE Routine 08/28/2024 3 :36 PM FLOUR BLENDER EGFR STAT 08/28/2024 3:24 PM FLOUR BLENDER PHOSPHORUS Add-On 08/28/2024 3:24 PM FLOUR BLENDER BLOOD GAS, ARTERIAL STAT 08/28/2024 3 :24 PM FLOUR BLENDER BASIC METABOLIC PANEL STAT 08/28/2024 3:24 PM FLOUR BLENDER MAGNESIUM STAT 08/28/2024 3:24 PM FLOUR BLENDER APTT STAT 08/28/2024 3:24 PM FLOUR BLENDER PROTIME-INR STAT 08/28/2024 3:24 PM FLOUR BLENDER CALCIUM,IONIZED, WHOLE BLOOD STAT 08/28/2024 3:24 PM FLOUR BLENDER CBC WITHOUT DIFFERENTIAL STAT 08/28/2024 3:24 PM FLOUR BLENDER POCT GLUCOSE DEVICE Routine 08/28/2024 2 :59 PM FLOUR BLENDER POC BLOOD GAS AND CHEMISTRIES, ARTERIAL Routine 08/28/2024 2:00 PM FLOUR BLENDER POCT ACTIVATED CLOTTING TIME, HIGH RANGE Routine 08/28/2024 1:57 PM [employer]OUR BLENDER TRANSFUSE RED BLOOD CELLS Timed 08/28/2024 1:33 PM FLOUR BLENDER POC BLOOD GAS AND CHEMISTRIES, ARTERIAL Routine 08/28/2024 1:20 PM FLOUR BLENDER POCT ACTIVATED CLOTTING TIME, HIGH RANGE Routine 08/28/2024 1:18 PM FLOUR BLENDER POC BLOOD GAS AND CHEMISTRIES, ARTERIAL Routine 08/28/2024 12:50 PM FLOUR BLENDER POCT ACTIVATED CLOTTING TIME, HIGH RANGE Routine 08/28/2024 12:48 PM FLOUR BLENDER PLATELET COUNT STAT 08/28/2024 12:27 PM FLOUR BLENDER POC BLOOD GAS AND CHEMISTRIES, ARTERIAL Routine 08/28/2024 12:21 PM FLOUR BLENDER POCT ACTIVATED CLOTTING TIME, HIGH RANGE Routine 08/28/2024 12:18 PM FLOUR BLENDER POC BLOOD GAS AND CHEMISTRIES, ARTERIAL Routine 08/28/2024 11:41 AM FLOUR BLENDER POCT ACTIVATED CLOTTING TIME, HIGH RANGE Routine 08/28/2024 11:39 AM FLOUR BLENDER POC BLOOD GAS AND CHEMISTRIES, ARTERIAL Routine 08/28/2024 11:10 AM FLOUR BLENDER POCT ACTIVATED CLOTTING TIME, HIGH RANGE Routine 08/28/2024 11:07 AM FLOUR BLENDER POC BLOOD GAS AND CHEMISTRIES, ARTERIAL Routine 08/28/2024 10:39 AM FLOUR BLENDER POCT ACTIVATED CLOTTING TIME, HIGH RANGE Routine 08/28/2024 10:37 AM FLOUR BLENDER POC BLOOD GAS AND CHEMISTRIES, ARTERIAL Routine 08/28/2024 9:52 AM FLOUR BLENDER POCT ACTIVATED CLOTTING TIME, HIGH RANGE Routine 08/28/2024 9:50 AM FLOUR BLENDER POC BLOOD GAS AND CHEMISTRIES, ARTERIAL Routine 08/28/2024 8:51 AM FLOUR BLENDER POCT ACTIVATED CLOTTING TIME, HIGH RANGE Routine 08/28/2024 8:51 AM FLOUR BLENDER PREPARE RBC STAT 08/28/2024 8:02 AM [employer] BL[employer]ER ANESTHESIA CENTRAL VENOUS LINE PLACEMENT Routine 08/28/2024 7:59 AM [employer]ER ANESTHESIA CENTRAL VENOUS LINE PLACEMENT Routine 08/28/2024 7:59 AM FLOUR BLENDER ME AN ELECTIVE ENDOTRACHEAL AIRWAY Routine 08/28/2024 7:59 AM FLOUR BLENDER POC BLOOD GAS AND CHEMISTRIES, ARTERIAL Routine 08/28/2024 7:56 AM FLOUR BLENDER POCT ACTIVATED CLOTTING TIME, HIGH RANGE Routine 08/28/2024 7:54 AM [employer] BLENDER ANESTHESIA ARTERIAL LINE PLACEMENT Routine 08/28/2024 7:28 AM [employer] BL[employer]ER REPAIR MITRAL VALVE 08/28/2024 7 :28 AM FLOUR BLENDER Coronary artery disease of [place] heart with stable angina pectoris, unspecified vessel or lesion type CORONARY ARTERY BYPASS GRAFT - INTERNAL MAMMARY/RADIAL ARTERY/SAPHENOUS VEIN GRAFT - LEG 08/28/2024 7:28 AM FL[employer] BL[employer]ER Coronary artery disease of [place] heart with stable angina pectoris, unspecified vessel or lesion type HEMOGLOBIN A1C Routine 07/31/2024 9:09 AM [facility] [facility]ER Encounter for preadmission testing 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 ATELECTASIS LEFT BASE Electronically signed by: Yimi Bond M.D. Narrative 09/27/2024 11:25 AM FLOUR BLENDER EXAMINATION: XR CHEST PA LATERAL 2 VIEWS HISTORY: Left pleural effusion, heart disease FINDINGS: Compared with study 09/10/2024, continued elevation left diaphragm with significant improvement of the left costophrenic angle with reduction in the pleural effusion. Minimal atelectasis remains. Cardiomegaly with postsurgical changes stable without evidence of failure. Procedure Note Yimi Bond MD - 09/27/2024 EXAMINATION: XR CHEST PA LATERAL 2 VIEWS HISTORY: Left pleural effusion, heart disease FINDINGS: Compared with study 09/10/2024, continued elevation left diaphragm with significant improvement of the left costophrenic angle with reduction in the pleural effusion. Minimal atelectasis remains. Cardiomegaly with postsurgical changes stable without evidence of failure. IMPRESSION: RESOLUTION OF FLUID LEFT BASE. ATELECTASIS LEFT BASE Electronically signed by: Yimi Bond M.D. us Truong Yañez SWITCHBOARD OPERATOR IMG XR PROCEDURES Final Res ult * (ABNORMAL) Differential, auto (09/24/2024 12:12 PM FLOUR BLENDER) Neutrophil abs 7.2(H) 1.5 - 6.5 K/cumm Imm gran abs 0.1 0.0 - 0.1 K/cumm [facility] Lymphocyte abs 1.5 0.8 - 3.3 K/cumm [facility] Monocyte abs 0.6 0.2 - 0.8 K/cumm [facility] Eosinophil abs 0.5 0.0 - 0.5 K/cumm [facility] Basophil abs 0.1 0.0 - 0.1 K/cumm [facility] Neutrophil pct 72.4 % [facility] Comment: Interpretive Data Percent cell count reference ranges are not reported, since discordance with absolute values may lead to misinterpretation of CBC data. Current Interpretive Data was last revised on 2017. Imm gran pct 0.8 % [facility] Comment: Interpretive Data Percent cell count reference ranges are not reported, since discordance with absolute values may lead to misinterpretation of CBC data. Current Interpretive Data was last revised on 2017. Lymphocyte pct 15.3 % [facility] Comment: Interpretive Data Percent cell count reference ranges are not reported, since discordance with absolute values may lead to misinterpretation of CBC data. Current Interpretive Data was last revised on 2017. Monocyte pct 6.2 % [facility] Comment: Interpretive Data Percent cell count reference ranges are not reported, since discordance with absolute values may lead to misinterpretation of CBC data. Current Interpretive Data was last revised on 2017. Eosinophil pct 4.7 % [facility] Comment: Interpretive Data Percent cell count reference ranges are not reported, since discordance with absolute values may lead to misinterpretation of CBC data. Current Interpretive Data was last revised on 2017. Basophil pct 0.6 % [facility] Comment: Interpretive Data Percent cell count reference ranges are not reported, since discordance with absolute values may lead to misinterpretation of CBC data. Current Interpretive Data was last revised on 2017. Blood 09/24/2024 12:1 2 PM [facility] BLENDER 09/24/2024 5:07 PM FLOUR BLENDER us Elidia Bermudez SWITCHBOARD OPERATOR LAB BLOOD ORDERABLES Randa arnold Result [facility] [place] [address] * (ABNORMAL) CBC with auto differential (09/24/2024 12:12 PM FLOUR BLENDER) WBC 10.0(H) 3.8 - 9.9 K/cumm Hgb 10.3(L) 11.9 - 15.5 g/dL [facility] Hct 31.7(L) 35.6 - 45.5 % [facility] Plt 384 150 - 400 K/cumm [facility] MPV 10.3 9.1 - 12.3 fL [facility] RBC 3.55(L) 3.90 - 5.20 M/cumm [facility] MCV 89.3 81.3 - 96.4 fL [facility] MCH 29.0 27.1 - 33.3 pg [facility] MCHC 32.5 32.3 - 35.7 g/dL [facility] RDW CV 14.6 11.1 - 14.9 % [facility] RDW SD 47.8 35.7 - 48.1 fL [facility] NRBC abs 0.00 0.00 - 0.01 K/cumm [facility] Blood 09/24/2024 12:1 2 PM FLOUR BLENDER 09/24/2024 5:07 PM FLOUR BLENDER us Elidia Bermudez SWITCHBOARD OPERATOR LAB BLOOD ORDERABLES Randa catalina Result [facility] [place] [address] * CBC without differential (09/24/2024 12:12 PM FLOUR BLENDER) WBC See Comment 3.8 - 9.9 Comment:Credited, duplicate test. Hgb See Comment 11.9 - 15.5 [facility] Comment:Credited, duplicate test. Hct See Comment 35.6 - 45.5 [facility] Comment:Credited, duplicate test. Plt See Comment 150 - 400 [facility] Comment:Credited, duplicate test. MPV See Comment 9.1 - 12.3 [facility] Comment:Credited, duplicate test. RBC See Comment 3.90 - 5.20 [facility] Comment:Credited, duplicate test. MCV See Comment 81.3 - 96.4 [facility] Comment:Credited, duplicate test. MCH See Comment 27.1 - 33.3 [facility] Comment:Credited, duplicate test. MCHC See Comment 32.3 - 35.7 [facility] Comment:Credited, duplicate test. RDW CV See Comment 11.1 - 14.9 [facility] Comment:Credited, duplicate test. RDW SD See Comment 35.7 - 48.1 [facility] Comment:Credited, duplicate test. NRBC abs See Comment 0.00 - 0.01 K/cumm [facility] Comment:Credited, duplicate test. Blood 09/24/2024 12:1 2 PM FLOUR BLENDER 09/24/2024 4:48 PM FLOUR BLENDER us Elidia Bermudez NP LAB BLOOD ORDERABLES Edit ed Result - Final Performing Organization Address [facility] Co de Phone Number [facility] [place] [address] * eGFR (09/15/2024 1:21 PM FLOUR BLENDER) eGFR 73 >=60 mL/min/1. 73 m2 Comment: Interpretive Data Reference Interval Normal >/= 90 mL/min/1.73m2 Mildly decreased* 60 - 89 mL/min/1.73m2 Mildly to moderately decreased 45 - 59 mL/min/1.73m2 Moderately to severely decreased 30 - 44 mL/min/1.73m2 Severely decreased 15 - 29 mL/min/1.73m2 Kidney Failure < 15 mL/min/1.73m2 *Relative to young adult level Estimated glomerular filtration rate is determined by the 2020 CKD-EPI equation recommended by the National Kidney Foundation (A Unifying Approach to GFR Estimation: Recommendations of the NKF-ASK Task Force on Reassessing the Inclusion of Race in Diagnosing Kidney Disease, JASN 2020). The CKD-EPI equation should not be used for patients with unstable renal function and has not been validated in children and those over 70. Current interpretive data was last reviewed 2021. Blood 09/15/2024 1:21 PM FLOUR BLENDER 09/15/2024 1:51 PM FLOUR BLENDER us Dusty Bernal MD LAB BLOOD ORDERABLES Final Res ult Performing Organization Address City/[facility]/ZIP Co de Phone Number [facility] [place] [address] * (ABNORMAL) Comprehensive metabolic panel (09/15/2024 1:21 PM FLOUR BLENDER) Sodium 132(L) 135 - 145 mmol/L Potassium, pl 4.2 3.3 - 4.9 mmol/L [facility] Chloride 99 97 - 110 mmol/L [facility] CO2 19(L) 22 - 32 mmol/L [facility] Anion gap 14 2 - 15 mmol/L [facility] BUN 23 6 - 25 mg/dL [facility] Creatinine 0.83 0.60 - 1.10 mg/dL [facility] Glucose 104 70 - 199 mg/dL [facility] Comment: Interpretive Data Fasting glucose >/= 126 mg/dl is diagnostic for diabetes. Fasting is defined as no caloric intake for at least 8 hours. Fasting glucose between 100 mg/dl to 125 mg/dl is diagnostic of prediabetes. In a patient with classic symptoms of hyperglycemia or hyperglycemic crisis, a random glucose >/= 200 mg/dl is diagnostic for diabetes. In the absence of unequivocal hyperglycemia, results should be confirmed by repeat testing. The classification and Diagnosis of Diabetes Diabetes Care 202; 46: S19-S40. Current interpretive data was last revised 2022. Calcium 8.5 8.5 - 10.3 mg/dL [facility] Bilirubin, total 0.4 0.1 - 1.2 mg/dL [facility] Protein, pl 6.6 6.5 - 8.5 g/dL [facility] Albumin 3.5 3.5 - 5.0 g/dL [facility] Alk phos 137(H) 40 - 130 Units/L [facility] ALT 39 7 - 45 Units/L [facility] AST 26 10 - 45 Units/L [facility] Blood 09/15/2024 1:21 PM FLOUR BLENDER 09/15/2024 1:24 PM FLOUR BLENDER Dusty Bernal MD LAB BLOOD ORDERABLES Final Res ult [facility] Department [place] [address] * XR Chest PA Lateral 2 Views (09/10/2024 7:37 AM FLOUR BLENDER) Anatomical Region Laterality Modality Body, Chest N/A Computed Radiogr aphy 09/10/2024 7:39 AM FLOUR BLENDER Impressions 09/10/2024 7:39 AM FLOUR BLENDER DECREASED FAILURE. LEFT PLEURAL FLUID Electronically signed by: Yimi Bond M.D. Narrative 09/10/2024 7:39 AM FLOUR BLENDER EXAMINATION: XR CHEST PA LATERAL 2 VIEWS HISTORY: Pulmonary congestion, heart disease pleural fluid FINDINGS: Compared with the study of the previous day, improvement in the pulmonary vascularity with decreased failure. Continued cardiomegaly with postsurgical changes. Moderate left-sided pleural effusion persists. No infiltrates. Resorption of the lateral aspect of the left clavicle unchanged since the previous day. Procedure Note Yimi Bond MD - 09/10/2024 EXAMINATION: XR CHEST PA LATERAL 2 VIEWS HISTORY: Pulmonary congestion, heart disease pleural fluid FINDINGS: Compared with the study of the previous day, improvement in the pulmonary vascularity with decreased failure. Continued cardiomegaly with postsurgical changes. Moderate left-sided pleural effusion persists. No infiltrates. Resorption of the lateral aspect of the left clavicle unchanged since the previous day. IMPRESSION: DECREASED FAILURE. LEFT PLEURAL FLUID Electronically signed by: Yimi Bond M.D. Truong Yañez SWITCHBOARD OPERATOR IMG XR PROCEDURES Final Res ult * eGFR (09/10/2024 1:35 AM FLOUR BLENDER) eGFR >90 >=60 mL/min/1. 73 m2 Comment: Interpretive Data Reference Interval Normal >/= 90 mL/min/1.73m2 Mildly decreased* 60 - 89 mL/min/1.73m2 Mildly to moderately decreased 45 - 59 mL/min/1.73m2 Moderately to severely decreased 30 - 44 mL/min/1.73m2 Severely decreased 15 - 29 mL/min/1.73m2 Kidney Failure < 15 mL/min/1.73m2 *Relative to young adult level Estimated glomerular filtration rate is determined by the 2020 CKD-EPI equation recommended by the National Kidney Foundation (A Unifying Approach to GFR Estimation: Recommendations of the NKF-ASK Task Force on Reassessing the Inclusion of Race in Diagnosing Kidney Disease, JASN 202). The CKD-EPI equation should not be used for patients with unstable renal function and has not been validated in children and those over 70. Current interpretive data was last reviewed 2021. Blood 09/10/2024 1:3 5 AM FLOUR BLENDER 09/10/2024 3:14 AM FLOUR BLENDER Truong Yañez SWITCHBOARD OPERATOR LAB BLOOD ORDERABLES Final Result Performing Organization Address City/[facility]/ZIP Co de Phone Number [facility] [address] [place] [address] * (ABNORMAL) CBC without differential (09/10/2024 1:35 AM FLOUR BLENDER) WBC 18.3(H) 3.8 - 9.9 K/cumm Hgb 9.6(L) 11.9 - 15.5 g/dL [facility] Hct 31.2(L) 35.6 - 45.5 % [facility] Plt 408(H) 150 - 400 K/cumm [facility] MPV 9.8 9.1 - 12.3 fL [facility] RBC 3.36(L) 3.90 - 5.20 M/cumm [facility] MCV 92.9 81.3 - 96.4 fL [facility] MCH 28.6 27.1 - 33.3 pg [facility] MCHC 30.8(L) 32.3 - 35.7 g/dL [facility] RDW CV 15.6(H) 11.1 - 14.9 % [facility] RDW SD 52.8(H) 35.7 - 48.1 fL [facility] NRBC abs 0.00 0.00 - 0.01 K/cumm [facility] Blood 09/10/2024 1:35 AM FLOUR BLENDER 09/10/2024 3:15 AM FLOUR BLENDER Pily Escudero SWITCHBOARD OPERATOR LAB BLOOD ORDERABLES Fin al Result [facility] [address] [place] [address] * (ABNORMAL) Comprehensive metabolic panel (09/10/2024 1:35 AM FLOUR BLENDER) Sodium 139 135 - 145 mmol/L Potassium, pl 3.8 3.3 - 4.9 mmol/L [facility] Chloride 102 97 - 110 mmol/L [facility] CO2 26 22 - 32 mmol/L [facility] Anion gap 11 2 - 15 mmol/L [facility] BUN 19 6 - 25 mg/dL [facility] Creatinine 0.62 0.60 - 1.10 mg/dL [facility] Glucose 105 70 - 199 mg/dL [facility] Comment: Interpretive Data Fasting glucose >/= 126 mg/dl is diagnostic for diabetes. Fasting is defined as no caloric intake for at least 8 hours. Fasting glucose between 100 mg/dl to 125 mg/dl is diagnostic of prediabetes. In a patient with classic symptoms of hyperglycemia or hyperglycemic crisis, a random glucose >/= 200 mg/dl is diagnostic for diabetes. In the absence of unequivocal hyperglycemia, results should be confirmed by repeat testing. The classification and Diagnosis of Diabetes Diabetes Care 2021; 46: S19-S40. Current interpretive data was last revised 2022. Calcium 8.3(L) 8.5 - 10.3 mg/dL [facility] Bilirubin, total 0.6 0.1 - 1.2 mg/dL [facility] Protein, pl 5.5(L) 6.5 - 8.5 g/dL [facility] Albumin 3.3(L) 3.5 - 5.0 g/dL [facility] Alk phos 115 40 - 130 Units/L [facility] ALT 70(H) 7 - 45 Units/L [facility] AST 25 10 - 45 Units/L [facility] Blood 09/10/2024 1:35 AM FLOUR BLENDER 09/10/2024 3:14 AM FLOUR BLENDER us Truong Yañez NP LAB BLOOD ORDERABLES Final Result [facility] [address] Department [place] [address] * XR Chest 1 View - Portable - in AM (09/09/2024 6:00 AM FLOUR BLENDER) Anatomical Region Laterality Modality Body, Chest N/A Computed Radiogr aphy 09/09/2024 9:50 AM FLOUR BLENDER Impressions 09/09/2024 9:50 AM FLOUR BLENDER Interval perihilar interstitial opacities/edema with persistent left retrocardiac consolidative atelectasis and small effusion. Electronically signed by: Grace Meza M.D. Narrative 09/09/2024 9:50 AM FLOUR BLENDER Examination: XR CHEST 1 VIEW Date: 09/09/2024 5:10 AM History: s/p cardiac surg Comparison: 09/08/2024. Findings: Mild cardiomegaly, sternotomy, and Sternum, temporary leads noted. Increasing perihilar interstitial opacities noted. [Left retrocardiac density obscuring the diaphragm with blunted costophrenic angle is again seen. Procedure Note Grace Meza MD - 09/09/2024 Examination: XR CHEST 1 VIEW Date: 09/09/2024 5:10 AM History: s/p cardiac surg Comparison: 09/08/2024. Findings: Mild cardiomegaly, sternotomy, and Sternum, temporary leads noted. Increasing perihilar interstitial opacities noted. [Left retrocardiac density obscuring the diaphragm with blunted costophrenic angle is again seen. IMPRESSION: Interval perihilar interstitial opacities/edema with persistent left retrocardiac consolidative atelectasis and small effusion. Electronically signed by: Grace Meza M.D. Dusty Bernal MD IMG XR PROCEDURES Final Result * eGFR (09/09/2024 5:21 AM FLOUR BLENDER) eGFR >90 >=60 mL/min/1. 73 m2 Comment: Interpretive Data Reference Interval Normal >/= 90 mL/min/1.73m2 Mildly decreased* 60 - 89 mL/min/1.73m2 Mildly to moderately decreased 45 - 59 mL/min/1.73m2 Moderately to severely decreased 30 - 44 mL/min/1.73m2 Severely decreased 15 - 29 mL/min/1.73m2 Kidney Failure < 15 mL/min/1.73m2 *Relative to young adult level Estimated glomerular filtration rate is determined by the 2020 CKD-EPI equation recommended by the National Kidney Foundation (A Unifying Approach to GFR Estimation: Recommendations of the NKF-ASK Task Force on Reassessing the Inclusion of Race in Diagnosing Kidney Disease, JASN 2020). The CKD-EPI equation should not be used for patients with unstable renal function and has not been validated in children and those over 70. Current interpretive data was last reviewed 2021. Blood 09/09/2024 5:21 AM FLOUR BLENDER 09/09/2024 6:18 AM FLOUR BLENDER Truong Yañez SWITCHBOARD OPERATOR LAB BLOOD ORDERABLES Final Result Performing Organization Address [facility] de Phone Number [facility] [address] [facility] [place] [address] * (ABNORMAL) aPTT (09/09/2024 5:21 AM FLOUR BLENDER) aPTT 25(L) 28 - 38 sec Comment: Interpretive Data Heparin therapeutic range: 66.0 - 100.0 seconds. Range based on correlation with therapeutic heparin activity range of 0.3 - 0.7 Units/mL. Current interpretive data was last revised on 2023. Blood 09/09/2024 5:21 AM FLOUR BLENDER 09/09/2024 6:19 AM FLOUR BLENDER Truong Yañez SWITCHBOARD OPERATOR LAB BLOOD ORDERABLES Final Result Performing Organization Address [facility] de Phone Number [facility] [address] [facility] [place] [address] * Protime-INR (09/09/2024 5:21 AM FLOUR BLENDER) PT 12.9 9.7 - 13.0 sec INR 1.19 0.90 - 1.20 [facility] Comment: Interpretive data Oral anticoagulant therapeutic ranges: Venous thromboembolism prophylaxis or treatment: 2.0-3.0 CARDIOLOGY Standard range: 2.0-3.0 High-intensity range: 2.5-3.5 Refer to indication-specific guidelines for appropriate target ranges for prosthetic heart valve replacement. Current interpretive data was last revised on 2019. Blood 09/09/2024 5:21 AM FLOUR BLENDER 09/09/2024 6:19 AM FLOUR BLENDER Truong Yañez SWITCHBOARD OPERATOR LAB BLOOD ORDERABLES Final Result Performing Organization Address City/[facility]/ZIP Co de Phone Number [facility] [address] Department [facility] [place] [address] * (ABNORMAL) CBC without differential (09/09/2024 5:21 AM FLOUR BLENDER) WBC 15.5(H) 3.8 - 9.9 K/cumm Hgb 8.8(L) 11.9 - 15.5 g/dL [facility] Hct 28.4(L) 35.6 - 45.5 % [facility] Plt 391 150 - 400 K/cumm [facility] MPV 10.0 9.1 - 12.3 fL [facility] RBC 3.12(L) 3.90 - 5.20 M/cumm [facility] MCV 91.0 81.3 - 96.4 fL [facility] MCH 28.2 27.1 - 33.3 pg [facility] MCHC 31.0(L) 32.3 - 35.7 g/dL [facility] RDW CV 15.4(H) 11.1 - 14.9 % [facility] RDW SD 50.2(H) 35.7 - 48.1 fL [facility] NRBC abs 0.00 0.00 - 0.01 K/cumm [facility] Blood 09/09/2024 5:21 AM FLOUR BLENDER 09/09/2024 6:19 AM FLOUR BLENDER Pily Escudero SWITCHBOARD OPERATOR LAB BLOOD ORDERABLES Fin al Result Performing Organization Address City/[facility]/ZIP Co de Phone Number AZAM XIE [address] [place] [address] * (ABNORMAL) Comprehensive metabolic panel (09/09/2024 5:21 AM FLOUR BLENDER) Sodium 140 135 - 145 mmol/L Potassium, pl 3.4 3.3 - 4.9 mmol/L [facility] Chloride 102 97 - 110 mmol/L [facility] CO2 27 22 - 32 mmol/L [facility] Anion gap 11 2 - 15 mmol/L [facility] BUN 21 6 - 25 mg/dL [facility] Creatinine 0.65 0.60 - 1.10 mg/dL [facility] Glucose 106 70 - 199 mg/dL [facility] Comment: Interpretive Data Fasting glucose >/= 126 mg/dl is diagnostic for diabetes. Fasting is defined as no caloric intake for at least 8 hours. Fasting glucose between 100 mg/dl to 125 mg/dl is diagnostic of prediabetes. In a patient with classic symptoms of hyperglycemia or hyperglycemic crisis, a random glucose >/= 200 mg/dl is diagnostic for diabetes. In the absence of unequivocal hyperglycemia, results should be confirmed by repeat testing. The classification and Diagnosis of Diabetes Diabetes Care 2021; 46: S19-S40. Current interpretive data was last revised 2022. Calcium 8.2(L) 8.5 - 10.3 mg/dL [facility] Bilirubin, total 0.5 0.1 - 1.2 mg/dL [facility] Protein, pl 5.1(L) 6.5 - 8.5 g/dL [facility] Albumin 3.1(L) 3.5 - 5.0 g/dL [facility] Alk phos 111 40 - 130 Units/L [facility] ALT 79(H) 7 - 45 Units/L [facility] AST 24 10 - 45 Units/L [facility] Blood 09/09/2024 5:21 AM FLOUR BLENDER 09/09/2024 6:18 AM FLOUR BLENDER us Truong Yañez NP LAB BLOOD ORDERABLES Final Result Performing Organization Address City/State/[facility] Co de Phone Number [facility] [address] Department [place] [address] * XR Chest 1 View - Portable - in AM (09/08/2024 6:05 AM FLOUR BLENDER) Anatomical Region Laterality Modality Body, Chest N/A Computed Radiogr aphy 09/08/2024 9:29 AM FLOUR BLENDER Impressions 09/08/2024 9:29 AM FLOUR BLENDER Postop changes with increasing left retrocardiac atelectasis and small effusion. Electronically signed by: Grace Meza M.D. Narrative 09/08/2024 9:29 AM FLOUR BLENDER Examination: XR CHEST 1 VIEW Date: 09/08/2024 5:40 AM History: s/p cardiac surg Comparison: 09/07/2024. Findings: Cardiomegaly, sternotomy, annuloplasty ring, and temporary leads noted. Left basal retrocardiac opacity obscuring the diaphragm with blunted costophrenic angle is increased. The right hemithorax is clear. No pneumothorax noted. Procedure Note Grace Meza MD - 09/08/2024 Examination: XR CHEST 1 VIEW Date: 09/08/2024 5:40 AM History: s/p cardiac surg Comparison: 09/07/2024. Findings: Cardiomegaly, sternotomy, annuloplasty ring, and temporary leads noted. Left basal retrocardiac opacity obscuring the diaphragm with blunted costophrenic angle is increased. The right hemithorax is clear. No pneumothorax noted. IMPRESSION: Postop changes with increasing left retrocardiac atelectasis and small effusion. Electronically signed by: Grace Meza M.D. Dusty Bernal MD IMG XR PROCEDURES Final Result * eGFR (09/08/2024 3:16 AM FLOUR BLENDER) eGFR >90 >=60 mL/min/1. 73 m2 Comment: Interpretive Data Reference Interval Normal >/= 90 mL/min/1.73m2 Mildly decreased* 60 - 89 mL/min/1.73m2 Mildly to moderately decreased 45 - 59 mL/min/1.73m2 Moderately to severely decreased 30 - 44 mL/min/1.73m2 Severely decreased 15 - 29 mL/min/1.73m2 Kidney Failure < 15 mL/min/1.73m2 *Relative to young adult level Estimated glomerular filtration rate is determined by the 2020 CKD-EPI equation recommended by the National Kidney Foundation (A Unifying Approach to GFR Estimation: Recommendations of the NKF-ASK Task Force on Reassessing the Inclusion of Race in Diagnosing Kidney Disease, JASN 202). The CKD-EPI equation should not be used for patients with unstable renal function and has not been validated in children and those over 70. Current interpretive data was last reviewed 2021. Blood 09/08/2024 3:16 AM FLOUR BLENDER 09/08/2024 3:20 AM FLOUR BLENDER Pily Escudero SWITCHBOARD OPERATOR LAB BLOOD ORDERABLES Fin al Result Performing Organization Address [facility] Co de Phone Number AZAM XIE [address] [facility] [place] [address] * (ABNORMAL) CBC without differential (09/08/2024 3:16 AM FLOUR BLENDER) WBC 17.0(H) 3.8 - 9.9 K/cumm Hgb 9.8(L) 11.9 - 15.5 g/dL [facility] Hct 31.2(L) 35.6 - 45.5 % [facility] Plt 397 150 - 400 K/cumm [facility] MPV 9.9 9.1 - 12.3 fL CERNER RBC 3.39(L) 3.90 - 5.20 M/cumm [facility] MCV 92.0 81.3 - 96.4 fL [facility] MCH 28.9 27.1 - 33.3 pg [facility] MCHC 31.4(L) 32.3 - 35.7 g/dL [facility] RDW CV 15.4(H) 11.1 - 14.9 % [facility] RDW SD 50.4(H) 35.7 - 48.1 fL [facility] NRBC abs 0.00 0.00 - 0.01 K/cumm [facility] Blood 09/08/2024 3:16 AM FLOUR BLENDER 09/08/2024 3:20 AM FLOUR BLENDER Pily Escudero SWITCHBOARD OPERATOR LAB BLOOD ORDERABLES Fin al Result Performing Organization Address City/[facility]/ZIP Co de Phone Number AZAM XIE [address] [employer] [place], [place] [id number] * Magnesium (09/08/2024 3:16 AM FLOUR BLENDER) Magnesium 2.1 1.4 - 2.5 mg/dL Blood 09/08/2024 3:16 AM FLOUR BLENDER 09/08/2024 3:20 AM FLOUR BLENDER Pily Escudero SWITCHBOARD OPERATOR LAB BLOOD ORDERABLES Fin al Result Performing Organization Address City/[facility]/ZIP Co de Phone Number AZAM [address] [place] [address] * (ABNORMAL) Renal function panel (09/08/2024 3:16 AM FLOUR BLENDER) Pathologist [facility] Sodium 136 135 - 145 mmol/L Potassium, pl 3.6 3.3 - 4.9 mmol/L [facility] Chloride 98 97 - 110 mmol/L [facility] CO2 31 22 - 32 mmol/L [facility] Anion gap 7 2 - 15 mmol/L [facility] BUN 23 6 - 25 mg/dL CERNER Creatinine 0.59(L) 0.60 - 1.10 mg/dL [facility] Glucose 115 70 - 199 mg/dL CERNER Comment: Interpretive Data Fasting glucose >/= 126 mg/dl is diagnostic for diabetes. Fasting is defined as no caloric intake for at least 8 hours. Fasting glucose between 100 mg/dl to 125 mg/dl is diagnostic of prediabetes. In a patient with classic symptoms of hyperglycemia or hyperglycemic crisis, a random glucose >/= 200 mg/dl is diagnostic for diabetes. In the absence of unequivocal hyperglycemia, results should be confirmed by repeat testing. The classification and Diagnosis of Diabetes Diabetes Care 2021; 46: S19-S40. Current interpretive data was last revised 2022. Calcium 8.7 8.5 - 10.3 mg/dL CERNER Phosphorus, pl 2.4 2.3 - 4.5 mg/dL [facility] Albumin 3.5 3.5 - 5.0 g/dL CERNER Blood 09/08/2024 3:16 AM FLOUR BLENDER 09/08/2024 3:20 AM FLOUR BLENDER Pily Escudero SWITCHBOARD OPERATOR LAB BLOOD ORDERABLES Fin al Result Performing Organization Address City/[facility]/ZIP Co de Phone Number AZAM [address] Department [place] [address] * XR Chest 1 View (09/07/2024 3:27 PM FLOUR BLENDER) Anatomical Region Laterality Modality Body, Chest N/A Computed Radiogr aphy 09/07/2024 3:35 PM FLOUR BLENDER Impressions 09/07/2024 3:35 PM FLOUR BLENDER FINDINGS/IMPRESSION: Poststernotomy changes are noted. No definitive pneumothorax visualized. No pleural effusion. Mild pulmonary vascular congestion. No acute osseous abnormality. Electronically signed by: Deon Moreira II, D.O. Narrative 09/07/2024 3:35 PM FLOUR BLENDER EXAMINATION: XR CHEST 1 VIEW DATE: 09/07/2024 3:10 PM INDICATION: Chest tube removed. COMPARISON: None. Procedure Note Deon Moreira II, DO - 09/07/2024 EXAMINATION: XR CHEST 1 VIEW DATE: 09/07/2024 3:10 PM INDICATION: Chest tube removed. COMPARISON: None. IMPRESSION: FINDINGS/IMPRESSION: Poststernotomy changes are noted. No definitive pneumothorax visualized. No pleural effusion. Mild pulmonary vascular congestion. No acute osseous abnormality. Electronically signed by: Deon Moreira II, D.O. Sushma Ware SWITCHBOARD OPERATOR IMG XR PROCEDURES Final Re sult * XR Chest 1 View - Portable - in AM (09/07/2024 6:20 AM FLOUR BLENDER) Anatomical Region Laterality Modality Body, Chest N/A Computed Radiogr aphy 09/07/2024 9:54 AM FLOUR BLENDER Impressions 09/07/2024 9:54 AM FLOUR BLENDER Findings/impression: Pigtail thoracostomy tube unchanged in position. Previously visualized right pneumothorax not definitively visualized on this examination. Borderline cardiomegaly, aortic valvuloplasty, and poststernotomy changes. Minimal pulmonary vascular congestion. Similar platelike opacity in the left lower lobe with elevation of the left hemidiaphragm. Electronically signed by: Deon Moreira II, D.O. Narrative 09/07/2024 9:54 AM FLOUR BLENDER EXAMINATION: XR CHEST 1 VIEW DATE: 09/07/2024 5:05 AM HISTORY: Cardiac surgery. COMPARISON: 09/06/2024. Procedure Note Deon Moreira II, DO - 09/07/2024 EXAMINATION: XR CHEST 1 VIEW DATE: 09/07/2024 5:05 AM HISTORY: Cardiac surgery. COMPARISON: 09/06/2024. IMPRESSION: Findings/impression: Pigtail thoracostomy tube unchanged in position. Previously visualized right pneumothorax not definitively visualized on this examination. Borderline cardiomegaly, aortic valvuloplasty, and poststernotomy changes. Minimal pulmonary vascular congestion. Similar platelike opacity in the left lower lobe with elevation of the left hemidiaphragm. Electronically signed by: Deon Moreira II, D.O. Dusty Bernal MD IMG XR PROCEDURES Final Result * eGFR (09/07/2024 2:55 AM FLOUR BLENDER) eGFR >90 >=60 mL/min/1. 73 m2 Comment: Interpretive Data Reference Interval Normal >/= 90 mL/min/1.73m2 Mildly decreased* 60 - 89 mL/min/1.73m2 Mildly to moderately decreased 45 - 59 mL/min/1.73m2 Moderately to severely decreased 30 - 44 mL/min/1.73m2 Severely decreased 15 - 29 mL/min/1.73m2 Kidney Failure < 15 mL/min/1.73m2 *Relative to young adult level Estimated glomerular filtration rate is determined by the 2020 CKD-EPI equation recommended by the National Kidney Foundation (A Unifying Approach to GFR Estimation: Recommendations of the NKF-ASK Task Force on Reassessing the Inclusion of Race in Diagnosing Kidney Disease, JASN 202). The CKD-EPI equation should not be used for patients with unstable renal function and has not been validated in children and those over 70. Current interpretive data was last reviewed 2021. Blood 09/07/2024 2:55 AM FLOUR BLENDER 09/07/2024 3:38 AM FLOUR BLENDER Pily Escudero NP LAB BLOOD ORDERABLES Fin al Result Performing Organization Address City/[facility] Co de Phone Number AZAM [address] Department [place] [address] * (ABNORMAL) CBC without differential (09/07/2024 2:55 AM FLOUR BLENDER) WBC 16.0(H) 3.8 - 9.9 K/cumm Hgb 9.7(L) 11.9 - 15.5 g/dL [facility] Hct 31.2(L) 35.6 - 45.5 % [facility] Plt 374 150 - 400 K/cumm [facility] MPV 10.4 9.1 - 12.3 fL [facility] RBC 3.34(L) 3.90 - 5.20 M/cumm [facility] MCV 93.4 81.3 - 96.4 fL [facility] MCH 29.0 27.1 - 33.3 pg [facility] MCHC 31.1(L) 32.3 - 35.7 g/dL [facility] RDW CV 15.2(H) 11.1 - 14.9 % [facility] RDW SD 51.0(H) 35.7 - 48.1 fL [facility] NRBC abs 0.00 0.00 - 0.01 K/cumm [facility] Blood 09/07/2024 2:55 AM FLOUR BLENDER 09/07/2024 3:41 AM FLOUR BLENDER Pily Escudero NP LAB BLOOD ORDERABLES Fin al Result Performing Organization Address [facility] Co de Phone Number AZAM XIE [address] [place] [address] * Magnesium (09/07/2024 2:55 AM FLOUR BLENDER) Magnesium 2.1 1.4 - 2.5 mg/dL Blood 09/07/2024 2:55 AM FLOUR BLENDER 09/07/2024 3:38 AM FLOUR BLENDER Pily Escudero SWITCHBOARD OPERATOR LAB BLOOD ORDERABLES Fin al Result Performing Organization Address [facility] Co de Phone Number AZAM XIE [address] Department [place] [address] * (ABNORMAL) Renal function panel (09/07/2024 2:55 AM FLOUR BLENDER) Pathologist [facility] Sodium 140 135 - 145 mmol/L Potassium, pl 3.9 3.3 - 4.9 mmol/L CERNER Chloride 99 97 - 110 mmol/L [facility] CO2 29 22 - 32 mmol/L [facility] Anion gap 12 2 - 15 mmol/L [facility] BUN 27(H) 6 - 25 mg/dL [facility] Creatinine 0.63 0.60 - 1.10 mg/dL [facility] Glucose 128 70 - 199 mg/dL [facility] Comment: Interpretive Data Fasting glucose >/= 126 mg/dl is diagnostic for diabetes. Fasting is defined as no caloric intake for at least 8 hours. Fasting glucose between 100 mg/dl to 125 mg/dl is diagnostic of prediabetes. In a patient with classic symptoms of hyperglycemia or hyperglycemic crisis, a random glucose >/= 200 mg/dl is diagnostic for diabetes. In the absence of unequivocal hyperglycemia, results should be confirmed by repeat testing. The classification and Diagnosis of Diabetes Diabetes Care 2021; 46: S19-S40. Current interpretive data was last revised 2022. Calcium 8.6 8.5 - 10.3 mg/dL CERNER Phosphorus, pl 2.4 2.3 - 4.5 mg/dL [facility] Albumin 3.3(L) 3.5 - 5.0 g/dL [facility]ER Blood 09/07/2024 2:55 AM FLOUR BLENDER 09/07/2024 3:38 AM FLOUR BLENDER us Pily Escudero NP LAB BLOOD ORDERABLES Fin al Result AZAM XIE [address] [place] [address] * MRSA Only (Staphylococcus aureus) PCR Nasal (09/06/2024 5:15 PM FLOUR BLENDER) [facility] PCR Scrn, Methicillin resistant Staphylococcus aureus (MRSA) Not Detected Not Detected CH Comment: Interpretive Data Testing performed using Nucleic Acid Amplification with the [email or web address] Xpert MRSA NxG Assay. This assay detects target DNA from mecA, mecC and the SCCmec insertion site of Staphylococcus aureus using Real-Time PCR and has been cleared by the FDA. Performance characteristics have been verified by the [facility]. Current Interpretive Data was last revised on 2022 Nasal 09/06/2024 5:15 PM FLOUR BLENDER 09/06/2024 5:32 PM FLOUR BLENDER Sushma Ware NP LAB MICROBIOLOGY - GENERAL ORDERABLES Final Result Performing Organization Address [facility] Co de Phone Number AZAM [address] [facility] [place] [address] * ECG 12 lead (09/06/2024 10:04 AM FLOUR BLENDER) 09/06/2024 10:0 4 AM FLOUR BLENDER Narrative [facility] - 09/07/2024 12:43 PM FLOUR BLENDER Vent Rate: 58 bpm RR Interval: 1022 msec ME Interval: 0 msec QRS Duration: 188 msec QT Interval: 531 msec QTC Interval: 528 msec P-R-T [place]: 0 - -31 - 56 degrees IMPRESSION: V PACED RHYTHM Electronically Signed By: Brendan Pool MD, [facility] Sushma Ware SWITCHBOARD OPERATOR ECG ORDERABLES Edited Res ult - Final Performing Organization Address [facility] Phone Number [facility] [employer] [facility] * XR Chest 1 View - Portable - in AM (09/06/2024 6:12 AM FLOUR BLENDER) Anatomical Region Laterality Modality Body, Chest N/A Computed Radiogr aphy 09/06/2024 10:3 6 AM FLOUR BLENDER Impressions 09/06/2024 10:36 AM FLOUR BLENDER Decrease is a small right pneumothorax. Persistent left retrocardiac atelectasis and small effusion. Electronically signed by: Grace Meza M.D. Narrative 09/06/2024 10:36 AM FLOUR BLENDER Examination: XR CHEST 1 VIEW Date: 09/06/2024 5:55 AM History: s/p cardiac surg Comparison: 09/05/2024. Findings: A small right pneumothorax with 5 mm of pleural separation has decreased in size from prior study. A pigtail thoracostomy catheter is again seen in the right lower lobe. The heart is mildly enlarged with sternotomy. A small left effusion with left retrocardiac opacity obscures the diaphragm again noted. Procedure Note Grace Meza MD - 09/06/2024 Examination: XR CHEST 1 VIEW Date: 09/06/2024 5:55 AM History: s/p cardiac surg Comparison: 09/05/2024. Findings: A small right pneumothorax with 5 mm of pleural separation has decreased in size from prior study. A pigtail thoracostomy catheter is again seen in the right lower lobe. The heart is mildly enlarged with sternotomy. A small left effusion with left retrocardiac opacity obscures the diaphragm again noted. IMPRESSION: Decrease is a small right pneumothorax. Persistent left retrocardiac atelectasis and small effusion. Electronically signed by: Grace Meza M.D. Dusty Bernal MD IMG XR PROCEDURES Final Result * eGFR (09/06/2024 3:21 AM FLOUR BLENDER) eGFR >90 >=60 mL/min/1. 73 m2 Comment: Interpretive Data Reference Interval Normal >/= 90 mL/min/1.73m2 Mildly decreased* 60 - 89 mL/min/1.73m2 Mildly to moderately decreased 45 - 59 mL/min/1.73m2 Moderately to severely decreased 30 - 44 mL/min/1.73m2 Severely decreased 15 - 29 mL/min/1.73m2 Kidney Failure < 15 mL/min/1.73m2 *Relative to young adult level Estimated glomerular filtration rate is determined by the 2020 CKD-EPI equation recommended by the National Kidney Foundation (A Unifying Approach to GFR Estimation: Recommendations of the NKF-ASK Task Force on Reassessing the Inclusion of Race in Diagnosing Kidney Disease, JASN 2020). The CKD-EPI equation should not be used for patients with unstable renal function and has not been validated in children and those over 70. Current interpretive data was last reviewed 2021. Blood 09/06/2024 3:21 AM FLOUR BLENDER 09/06/2024 3:32 AM FLOUR BLENDER Pily Escudero SWITCHBOARD OPERATOR LAB BLOOD ORDERABLES Fin al Result Performing Organization Address [facility] Co de Phone Number AZMA XIE [address] [facility] [place] [address] * (ABNORMAL) CBC without differential (09/06/2024 3:21 AM FLOUR BLENDER) WBC 17.1(H) 3.8 - 9.9 K/cumm Hgb 9.0(L) 11.9 - 15.5 g/dL [facility] Hct 29.2(L) 35.6 - 45.5 % [facility] Plt 296 150 - 400 K/cumm [facility] MPV 10.2 9.1 - 12.3 fL [facility] RBC 3.16(L) 3.90 - 5.20 M/cumm [facility] MCV 92.4 81.3 - 96.4 fL [facility] MCH 28.5 27.1 - 33.3 pg [facility] MCHC 30.8(L) 32.3 - 35.7 g/dL [facility] RDW CV 15.2(H) 11.1 - 14.9 % [facility] RDW SD 50.0(H) 35.7 - 48.1 fL [facility] NRBC abs 0.04(H) 0.00 - 0.01 K/cumm [facility] Blood 09/06/2024 3:21 AM FLOUR BLENDER 09/06/2024 3:31 AM FLOUR BLENDER Pily Escudero SWITCHBOARD OPERATOR LAB BLOOD ORDERABLES Fin al Result Performing Organization Address [facility]/ZIP Co de Phone Number AZAM XIE [address] [facility] [address] * Magnesium (09/06/2024 3:21 AM FLOUR BLENDER) Magnesium 2.1 1.4 - 2.5 mg/dL Blood 09/06/2024 3:21 AM FLOUR BLENDER 09/06/2024 3:32 AM FLOUR BLENDER Pily Escudero SWITCHBOARD OPERATOR LAB BLOOD ORDERABLES Fin al Result Performing Organization Address [facility] Co de Phone Number AZAM XIE [address] Department [place] [address] * (ABNORMAL) Hepatic function panel (09/06/2024 3:21 AM FLOUR BLENDER) Bilirubin, total 0.6 0.1 - 1.2 mg/dL Bilirubin, direct 0.2 0.1 - 0.3 mg/dL [facility] Protein, pl 5.5(L) 6.5 - 8.5 g/dL [facility] Albumin 3.2(L) 3.5 - 5.0 g/dL [facility] Alk phos 147(H) 40 - 130 Units/L [facility] ALT 184(H) 7 - 45 Units/L [facility] AST 52(H) 10 - 45 Units/L [facility] Blood 09/06/2024 3:21 AM FLOUR BLENDER 09/06/2024 4:06 PM FLOUR BLENDER Sushma Ware SWITCHBOARD OPERATOR LAB BLOOD ORDERABLES Final Result Performing Organization Address [facility] de Phone Number AZAM [address] Department [place] [address] * (ABNORMAL) Renal function panel (09/06/2024 3:21 AM FLOUR BLENDER) Sodium 141 135 - 145 mmol/L Potassium, pl 3.7 3.3 - 4.9 mmol/L [facility] Chloride 101 97 - 110 mmol/L [facility] CO2 29 22 - 32 mmol/L [facility] Anion gap 11 2 - 15 mmol/L [facility] BUN 34(H) 6 - 25 mg/dL [facility] Creatinine 0.65 0.60 - 1.10 mg/dL [facility] CH Glucose 133 70 - 199 mg/dL [facility] CH Comment: Interpretive Data Fasting glucose >/= 126 mg/dl is diagnostic for diabetes. Fasting is defined as no caloric intake for at least 8 hours. Fasting glucose between 100 mg/dl to 125 mg/dl is diagnostic of prediabetes. In a patient with classic symptoms of hyperglycemia or hyperglycemic crisis, a random glucose >/= 200 mg/dl is diagnostic for diabetes. In the absence of unequivocal hyperglycemia, results should be confirmed by repeat testing. The classification and Diagnosis of Diabetes Diabetes Care 2021; 46: S19-S40. Current interpretive data was last revised 2022. Calcium 8.4(L) 8.5 - 10.3 mg/dL [facility] Phosphorus, pl 2.3 2.3 - 4.5 mg/dL [facility] Albumin 3.3(L) 3.5 - 5.0 g/dL [facility] Blood 09/06/2024 3:21 AM FLOUR BLENDER 09/06/2024 3:32 AM FLOUR BLENDER us Pily Escudero NP LAB BLOOD ORDERABLES [facility] al Result Performing Organization Address City/State/[facility] Co de Phone Number AZAM [address] [place] [address] * IR Chest Drainage With Imaging Right (09/05/2024 2:50 PM FLOUR BLENDER) Anatomical Region Laterality Modality Chest Right X-Ray Angiograph y 09/05/2024 4:29 PM FLOUR BLENDER Impressions 09/05/2024 4:29 PM FLOUR BLENDER Successful ultrasound-guided right thoracostomy tube placement. Electronically signed by: Chato Swain M.D. Narrative 09/05/2024 4:29 PM FLOUR BLENDER EXAMINATION: IR CHEST DRAINAGE W IMAGING RIGHT DATE: 09/05/2024 1:55 PM HISTORY: right pleural effusion, pneumothorax, please place chest tube thank you FINDINGS: Risks and benefits of the procedure were discussed with the patient and informed consent was obtained. The patient was placed on the fluoroscopy table in the left lateral decubitus position. The patient's right posterior lateral chest wall was prepped and draped in the usual sterile fashion. Lidocaine was used to anesthetize the skin and subcutaneous tissues. Ultrasound was used with permanent image recording to the PACS system. Ultrasound demonstrates right pleural effusion. Under ultrasound guidance, a one-step needle was advanced into the right pleural space through a right posterior lateral approach. A guidewire was advanced into the pleural space. Over the guidewire, the skin and subcutaneous tissues were dilated to 14-[place]. Over the guidewire, a 14-[place] pigtail drainage catheter was advanced into the right pleural space. The catheter was secured to the skin and a sterile dressing was applied. The catheter was connected to a Pleur-evac. A small amount of serosanguineous fluid was submitted for culture. The patient tolerated the procedure well with no immediate complications. Procedure Note Chato Swain MD - 09/05/2024 EXAMINATION: IR CHEST DRAINAGE W IMAGING RIGHT DATE: 09/05/2024 1:55 PM HISTORY: right pleural effusion, pneumothorax, please place chest tube thank you FINDINGS: Risks and benefits of the procedure were discussed with the patient and informed consent was obtained. The patient was placed on the fluoroscopy table in the left lateral decubitus position. The patient's right posterior lateral chest wall was prepped and draped in the usual sterile fashion. Lidocaine was used to anesthetize the skin and subcutaneous tissues. Ultrasound was used with permanent image recording to the PACS system. Ultrasound demonstrates right pleural effusion. Under ultrasound guidance, a one-step needle was advanced into the right pleural space through a right posterior lateral approach. A guidewire was advanced into the pleural space. Over the guidewire, the skin and subcutaneous tissues were dilated to 14[place]. Over the guidewire, a 14[place] pigtail drainage catheter was advanced into the right pleural space. The catheter was secured to the skin and a sterile dressing was applied. The catheter was connected to a Pleur-evac. A small amount of serosanguineous fluid was submitted for culture. The patient tolerated the procedure well with no immediate complications. IMPRESSION: Successful ultrasound-guided right thoracostomy tube placement. Electronically signed by: Chato Swain M.D. Sushma Ware NP IMG IR PROCEDURES Final Re sult * XR Chest 1 Vw Portable (09/05/2024 2:47 PM FLOUR BLENDER) Anatomical Region Laterality Modality Body, Chest N/A Computed Radiogr aphy 09/05/2024 2:51 PM FLOUR BLENDER Impressions 09/05/2024 2:51 PM FLOUR BLENDER FINDINGS/IMPRESSION: Interval placement of right thoracostomy tube. Similar right pneumothorax when compared to prior chest CT dated same day. Mild cardiomegaly. Mild pulmonary vascular congestion. No acute osseous abnormality. Electronically signed by: Deon Moreira II, D.O. Narrative 09/05/2024 2:51 PM FLOUR BLENDER EXAMINATION: XR CHEST 1 VIEW DATE: 09/05/2024 2:40 PM INDICATION: Chest tube placement. COMPARISON: None. Procedure Note Deon Moreira II, DO - 09/05/2024 EXAMINATION: XR CHEST 1 VIEW DATE: 09/05/2024 2:40 PM INDICATION: Chest tube placement. COMPARISON: None. IMPRESSION: FINDINGS/IMPRESSION: Interval placement of right thoracostomy tube. Similar right pneumothorax when compared to prior chest CT dated same day. Mild cardiomegaly. Mild pulmonary vascular congestion. No acute osseous abnormality. Electronically signed by: Deon Moreira II, D.O. Chato Swain MD IMG XR PROCEDURES Final Resu lt * Aerobic and anaerobic culture and gram stain Pleural fluid Pleural cavity (09/05/2024 2:27 PM FLOUR BLENDER) Direct Specimen Exam Stain: Cytospin Gram stain shows: Abundant polymorphonuclear leukocytes seen. Red blood cells present. Other cellular material present. No organisms seen. Comment:Testing performed by : [facility], [address] [facility] [place]., [address] Report Final Report: No growth AZAM Comment:Testing performed by : [facility], [address] [facility], [place]., [address] Pleural fluid (Pleural cavity) 09/05/2024 2:27 PM FLOUR BLENDER 09/05/2024 6:07 PM FLOUR BLENDER Narrative AZAM - 09/09/2024 11:37 AM FLOUR BLENDER Right chest tube Fluid specimen received. Testing performed by [facility] Microbiology Laboratory ([phone]) Specimens submitted from normally sterile body sites will have all bacterial morphotypes identified. Specimens that contain grossly mixed ann and/or are from body sites that are not normally sterile will be examined for Staphylococcus aureus, Pseudomonas aeruginosa, beta-hemolytic strep, vancomycin-resistant Enterococcus, Bacteroides, Parabacteroides, Clostridium perfringens and fungus. If any of these are isolated, the organism will be reported. Current interpretive data was last revised on 2019. Chato Swain MD LAB MICROBIOLOGY - GENERAL O RDERABLES Final Result AZAM [id number] [place] [address] * CT Chest Abdomen Pelvis WO Contrast (09/05/2024 11:49 AM FLOUR BLENDER) Anatomical Region Laterality Modality Body N/A Computed Tomogra phy 09/05/2024 12:3 0 PM FLOUR BLENDER Impressions 09/05/2024 12:30 PM FLOUR BLENDER 1. Small right pleural effusion. 2. Bilateral pleural effusions with adjacent consolidations possibly representing passive atelectasis. Pneumonia and aspiration are also considered in the differential diagnosis. 3. Poststernotomy changes. 4. Fluid in the colon suggestive of a diarrheal process. 5. Gas in the bladder may represent urinary tract infection versus sequela from recent catheterization. 6. Additional chronic or incidental findings as above. Results discussed with patient's nurse Isha at approximately 12:29 PM on date of study. Electronically signed by: Deon Moreira II, D.O. Narrative 09/05/2024 12:30 PM FLOUR BLENDER EXAMINATION: CT CHEST ABDOMEN PELVIS WO CONTRAST DATE: 09/05/2024 11:10 AM HISTORY: Worsening or leukocytosis status post coronary artery bypass graft. COMPARISON: Multiple priors most recent dated 09/05/2024. TECHNIQUE: Transaxial computed tomographic images of the chest, abdomen and pelvis were obtained without contrast. Multiplanar coronal and sagittal images were reformatted. FINDINGS: Chest: Small right and trace left pleural effusion. Consolidations in the bilateral lower lobes are larger than expected for passive atelectasis. Differential considerations include passive atelectasis, pneumonia, or aspiration. There is a small right pneumothorax. Thyroid is unremarkable. Postoperative findings consistent with mitral valvuloplasty and coronary artery bypass graft. No pathologic by size criteria lymphadenopathy. No drainable fluid collections in the mediastinum. Poststernotomy changes are noted. Abdomen and pelvis: Cholelithiasis. No evidence of cholecystitis. The liver, spleen, stomach, pancreas, and adrenal glands are unremarkable. Nonobstructive nephrolithiasis in the right kidney. Left kidney is unremarkable. No hydroureteronephrosis. Gas is noted in the urinary bladder, which may represent urinary tract infection versus sequela from recent catheterization. Uterus and adnexal structures are unremarkable. No free fluid in the pelvis. There is fluid within the colon suggestive of a diarrheal process. No evidence of appendicitis. Small bowel is unremarkable. Moderate atherosclerotic calcifications in the aorta and branch vessels. No acute osseous abnormality. No suspicious lytic or sclerotic lesions. 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 Procedure Note Deon Moreira II, DO - 09/05/2024 EXAMINATION: CT CHEST ABDOMEN PELVIS WO CONTRAST DATE: 09/05/2024 11:10 AM HISTORY: Worsening or leukocytosis status post coronary artery bypass graft. COMPARISON: Multiple priors most recent dated 09/05/2024. TECHNIQUE: Transaxial computed tomographic images of the chest, abdomen and pelvis were obtained without contrast. Multiplanar coronal and sagittal images were reformatted. FINDINGS: Chest: Small right and trace left pleural effusion. Consolidations in the bilateral lower lobes are larger than expected for passive atelectasis. Differential considerations include passive atelectasis, pneumonia, or aspiration. There is a small right pneumothorax. Thyroid is unremarkable. Postoperative findings consistent with mitral valvuloplasty and coronary artery bypass graft. No pathologic by size criteria lymphadenopathy. No drainable fluid collections in the mediastinum. Poststernotomy changes are noted. Abdomen and pelvis: Cholelithiasis. No evidence of cholecystitis. The liver, spleen, stomach, pancreas, and adrenal glands are unremarkable. Nonobstructive nephrolithiasis in the right kidney. Left kidney is unremarkable. No hydroureteronephrosis. Gas is noted in the urinary bladder, which may represent urinary tract infection versus sequela from recent catheterization. Uterus and adnexal structures are unremarkable. No free fluid in the pelvis. There is fluid within the colon suggestive of a diarrheal process. No evidence of appendicitis. Small bowel is unremarkable. Moderate atherosclerotic calcifications in the aorta and branch vessels. No acute osseous abnormality. No suspicious lytic or sclerotic lesions. 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 IMPRESSION: 1. Small right pleural effusion. 2. Bilateral pleural effusions with adjacent consolidations possibly representing passive atelectasis. Pneumonia and aspiration are also considered in the differential diagnosis. 3. Poststernotomy changes. 4. Fluid in the colon suggestive of a diarrheal process. 5. Gas in the bladder may represent urinary tract infection versus sequela from recent catheterization. 6. Additional chronic or incidental findings as above. Results discussed with patient's nurse Isha at approximately 12:29 PM on date of study. Electronically signed by: Deon Moreira II, D.O. Sushma Ware NP IMG CT PROCEDURES Final Re sult * (ABNORMAL) aPTT (09/05/2024 10:07 AM FLOUR BLENDER) aPTT 25(L) 28 - 38 sec Comment: Interpretive Data Heparin therapeutic range: 66.0 - 100.0 seconds. Range based on correlation with therapeutic heparin activity range of 0.3 - 0.7 Units/mL. Current interpretive data was last revised on 2023. Blood 09/05/2024 10:0 7 AM FLOUR BLENDER 09/05/2024 10:12 AM FLOUR BLENDER Sushma Ware NP LAB BLOOD ORDERABLES Final Result AZAM XIE [id number] Department [place] [address] * Protime-INR (09/05/2024 10:07 AM FLOUR BLENDER) PT 13.0 9.7 - 13.0 sec INR 1.20 0.90 - 1.20 AZAM XIE Comment: Interpretive data Oral anticoagulant therapeutic ranges: Venous thromboembolism prophylaxis or treatment: 2.0-3.0 CARDIOLOGY Standard range: 2.0-3.0 High-intensity range: 2.5-3.5 Refer to indication-specific guidelines for appropriate target ranges for prosthetic heart valve replacement. Current interpretive data was last revised on 2019. Blood 09/05/2024 10:0 7 AM FLOUR BLENDER 09/05/2024 1:06 PM FLOUR BLENDER Narrative AZAM XIE - 09/05/2024 1:11 PM FLOUR BLENDER Add on us Chato Swain MD LAB BLOOD ORDERABLES Final R esult AZAM [address] Department [place] [address] * XR Chest 1 View - Portable - in AM (09/05/2024 5:10 AM FLOUR BLENDER) Anatomical Region Laterality Modality Body, Chest N/A Computed Radiogr aphy 09/05/2024 9:16 AM FLOUR BLENDER Impressions 09/05/2024 9:16 AM FLOUR BLENDER FINDINGS/IMPRESSION: Poststernotomy changes and aortic valvuloplasty. Small bilateral pleural effusions and pulmonary vascular congestion. No pneumothorax. Prominence of interstitial markings in the perihilar region appear slightly decreased presumed representing improved pulmonary edema. Electronically signed by: Deon Moreira II, D.O. Narrative 09/05/2024 9:16 AM FLOUR BLENDER EXAMINATION: XR CHEST 1 VIEW DATE: 09/05/2024 4:50 AM INDICATION: Cardiac surgery. COMPARISON: 09/04/2024. Procedure Note Deon Moreira II, DO - 09/05/2024 EXAMINATION: XR CHEST 1 VIEW DATE: 09/05/2024 4:50 AM INDICATION: Cardiac surgery. COMPARISON: 09/04/2024. IMPRESSION: FINDINGS/IMPRESSION: Poststernotomy changes and aortic valvuloplasty. Small bilateral pleural effusions and pulmonary vascular congestion. No pneumothorax. Prominence of interstitial markings in the perihilar region appear slightly decreased presumed representing improved pulmonary edema. Electronically signed by: Deon Moreira II, D.O. Dusty Bernal MD IMG XR PROCEDURES Final Result * eGFR (09/05/2024 1:46 AM FLOUR BLENDER) eGFR 81 >=60 mL/min/1. 73 m2 Comment: Interpretive Data Reference Interval Normal >/= 90 mL/min/1.73m2 Mildly decreased* 60 - 89 mL/min/1.73m2 Mildly to moderately decreased 45 - 59 mL/min/1.73m2 Moderately to severely decreased 30 - 44 mL/min/1.73m2 Severely decreased 15 - 29 mL/min/1.73m2 Kidney Failure < 15 mL/min/1.73m2 *Relative to young adult level Estimated glomerular filtration rate is determined by the 2020 CKD-EPI equation recommended by the National Kidney Foundation (A Unifying Approach to GFR Estimation: Recommendations of the NKF-ASK Task Force on Reassessing the Inclusion of Race in Diagnosing Kidney Disease, JASN 2020). The CKD-EPI equation should not be used for patients with unstable renal function and has not been validated in children and those over 70. Current interpretive data was last reviewed 2021. Blood 09/05/2024 1:46 AM FLOUR BLENDER 09/05/2024 2:31 AM FLOUR BLENDER us Pily Escudero NP LAB BLOOD ORDERABLES Fin al Result AZAM XIE [address] Department [place] [address] * (ABNORMAL) CBC without differential (09/05/2024 1:46 AM FLOUR BLENDER) Pathologist [facility] WBC 18.0(H) 3.8 - 9.9 K/cumm Hgb 9.5(L) 11.9 - 15.5 g/dL [facility] Hct 30.5(L) 35.6 - 45.5 % [facility] Plt 325 150 - 400 K/cumm [facility] MPV 11.2 9.1 - 12.3 fL [facility] RBC 3.31(L) 3.90 - 5.20 M/cumm [facility] MCV 92.1 81.3 - 96.4 fL [facility] MCH 28.7 27.1 - 33.3 pg [facility] MCHC 31.1(L) 32.3 - 35.7 g/dL [facility] CV 14.9 11.1 - 14.9 % [facility] SD 49.3(H) 35.7 - 48.1 fL [facility] NRBC abs 0.07(H) 0.00 - 0.01 K/cumm [facility] Blood 09/05/2024 1:46 AM FLOUR BLENDER 09/05/2024 2:30 AM FLOUR BLENDER Pily Escudero [employer]ITCH[employer] OPERATOR LAB BLOOD ORDERABLES Fin al Result Performing Organization Address [facility] de Phone Number [facility] [address] [facility] [address] * Magnesium (09/05/2024 1:46 AM FLOUR BLENDER) Pathologist [facility] Magnesium 2.2 1.4 - 2.5 mg/dL Blood 09/05/2024 1:46 AM FLOUR BLENDER 09/05/2024 2:31 AM FLOUR BLENDER Pily Escudero SWITCHBOARD OPERATOR LAB BLOOD ORDERABLES Fin al Result Performing Organization Address [facility] de Phone Number [facility] [address] [facility] [place] [address] * (ABNORMAL) Renal function panel (09/05/2024 1:46 AM FLOUR BLENDER) Sodium 141 135 - 145 mmol/L Potassium, pl 3.2(L) 3.3 - 4.9 mmol/L [facility] Chloride 98 97 - 110 mmol/L [facility] CO2 29 22 - 32 mmol/L [facility] Anion gap 14 2 - 15 mmol/L [facility] BUN 37(H) 6 - 25 mg/dL [facility] Creatinine 0.76 0.60 - 1.10 mg/dL [facility] Glucose 135 70 - 199 mg/dL [facility] Comment: Interpretive Data Fasting glucose >/= 126 mg/dl is diagnostic for diabetes. Fasting is defined as no caloric intake for at least 8 hours. Fasting glucose between 100 mg/dl to 125 mg/dl is diagnostic of prediabetes. In a patient with classic symptoms of hyperglycemia or hyperglycemic crisis, a random glucose >/= 200 mg/dl is diagnostic for diabetes. In the absence of unequivocal hyperglycemia, results should be confirmed by repeat testing. The classification and Diagnosis of Diabetes Diabetes Care 2021; 46: S19-S40. Current interpretive data was last revised 2022. Calcium 8.6 8.5 - 10.3 mg/dL [facility] Phosphorus, pl 2.2(L) 2.3 - 4.5 mg/dL [facility] Albumin 3.5 3.5 - 5.0 g/dL [facility] Blood 09/05/2024 1:46 AM FLOUR BLENDER 09/05/2024 2:31 AM FLOUR BLENDER us Pily Escudero NP LAB BLOOD ORDERABLES [facility] al Result [facility] [address] Department [place] [address] * (ABNORMAL) Urinalysis reflex to microscopic and culture Urine, indwelling catheter (09/04/2024 4:50PM FLOUR BLENDER) Color, ur Yellow Yellow Clarity, ur Clear Clear [facility] Specific gravity, ur 1.025 1.003 - 1.030 [facility] pH, urine 5.5 [facility] Comment: Interpretive Data U rine pH is affected by diet, medications, systemic acid-base disturbances, and renal tubular function. pH may affect urinary stone formation. For example, urine pH below 6.0 may help reduce the tendency for calcium phosphate stones and pH greater than 6.0 may reduce the tendency for uric acid stone formation. Source: [facility] Hired Current Interpretive Data was last revised on 2017 Protein, ur ql Trace Negative [facility] Glucose, ur ql Negative Negative [facility] Ketones, ur Negative Negative [facility] Bilirubin, ur Negative Negative [facility] Blood, ur Negative Negative [facility] Urobilinogen, ur <2.0 <2.0 mg/dL [facility] Nitrite, ur Negative Negative [facility] Leukocyte esterase, ur 3+(A) Negative [facility] UA reflex comment Reflex to microscopic UA will be performed. [facility] Urine, indwelling catheter 09/04/2024 4:50 PM FLOUR BLENDER 09/04/2024 5:06 PM FLOUR BLENDER Sushma Ware NP LAB MICROBIOLOGY - GENERAL ORDERABLES Final Result Performing Organization Address [facility] Co de Phone Number AZAM XIE [address] [facility] [place], [place] [id number] * (ABNORMAL) Urinalysis, microscopic only (09/04/2024 4:50 PM FLOUR BLENDER) WBC, ur 6-10(A) 0 - 5 /HPF RBC, ur 3-5(A) 0 - 2 /HPF [facility] Mucous, ur Present(A) [facility] Hyaline casts, ur 6-10 0 - 10 /LPF [facility] Culture Reflex Comment Reflex conditions for urine culture (WBC >10) not met. [facility] Urine, indwelling catheter 09/04/2024 4:50 PM FLOUR BLENDER 09/04/2024 5:06 PM FLOUR BLENDER Sushma Ware NP LAB URINE ORDERABLES Final Result Performing Organization Address [facility] Co de Phone Number [facility] [address] [address] [facility] [place] [address] * Urine culture Urine, indwelling catheter (09/04/2024 4:50 PM FLOUR BLENDER) Report Final Report: No growth Comment:Testing performed by : [facility], [address] [place]., [address] Urine, indwelling catheter 09/04/2024 4:50 PM FLOUR BLENDER 09/05/2024 2:20 PM FLOUR BLENDER Narrative [facility] - 09/06/2024 5:18 PM FLOUR BLENDER Worsening leukocytosis Indications for Culture:->Recent positive UA Testing performed by [facility] Microbiology Laboratory ([phone]) Sushma Ware NP LAB MICROBIOLOGY - GENERAL ORDERABLES Final Result AZAM [address] [facility] Department [place] [address] * TRANSTHORACIC ECHO (TTE) COMPLETE W DOPPLER/CF WO CONTRAST (09/04/2024 11:24 AM FLOUR BLENDER) LV EF % CONS SCIMAGE Anatomical Region Laterality Modality Ultrasound 09/04/2024 10:2 4 AM FLOUR BLENDER Narrative 09/04/2024 11:51 [place] [address] Echocardiogram Report Patient Name: MICHELLE HENRY ANN : 1945 Study Date: 09/04/2024 10:24:27 AM Gender: F Tech: RF Location: [id number] Ref Provider: ELIDIA BERMUDEZ Height(Cm): 155 BSA: 1.63 Weight(Kg): 62 Heart Rate: 57 BP: 129/72 Quality: Good Order Provider: ELIDIA BERMUDEZ PROCEDURES: Echocardiographic Report: Transthoracic echocardiogram with complete 2D, M-Mode, and color Doppler examination. INDICATIONS: S/p CABG MVR. MEASUREMENTS: 2D/MM Value Range Doppler Value Range EF Mod BP 62 % [ 54 - 74 ] SANAZ Vmax 1.94 cm2 LVIDd 2D 3.55 cm [ 3.80 - 5.20 ] AV Mean PG 5 mmHg LVIDs 2D 2.94 cm [ 2.20 - 3.50 ] AV Peak Salvatore 1.68 m/s [ 1.00 - 1.70 ] LVPWd 2D 1.21 cm [ 0.60 - 0.90 ] AV VTI 35.56 cm IVSd 2D 1.38 cm [ 0.60 - 0.90 ] LVOT Diam 1.96 cm LA Dimension 2D 3.52 cm [ 2.70 - 3.80 ] LVOT Peak Salvatore 1.08 m/s [ 0.70 - 1.10 ] LA Dimension MM 4.62 cm [ 2.70 - 3.80 ] LVOT VTI 20.33 cm AoR Diam 2D 3.14 cm [ 2.70 - 3.70 ] SI LVOT 38.3 ml/m2 [ >= 35.0 ] AoR Diam MM 3.11 cm [ 2.70 - 3.70 ] MV E Peak Salvatore 1.29 m/s [ 0.60 - 1.30 ] LA Volume Index 48.95 cc/m2 [ 16.00 - 34.00 ] MV Mean PG 3 mmHg ACS MM 1.70 cm MV PHT 89 msec [ 20 - 100 ] MVA PHT 2.48 cm2 MV Decel Time 307 msec [ 104 - 258 ] PV Peak Salvatore 0.91 m/s [ 0.40 - 0.80 ] TR Peak Salvatore 2.93 m/s [ 1.00 - 2.80 ] TR Peak PG 34 mmHg E` 0.05 m/s E/E` 19.02 2D/MM Value Range Doppler Value Range - FINDINGS: Atrial Septum: Normal atrial septum. Left Ventricle: Reduced left ventricular cavity size. Normal left ventricular systolic function with no focal wall motion abnormalities. Moderate concentric left ventricular hypertrophy. Ejection fraction is measured at 62 %. Left Atrium: There is mild enlargement of left atrium. Right Ventricle: Normal right ventricular size. Normal right ventricular systolic function. Right Atrium: The right atrium is normal in size. Aortic Valve: Normal structure of the aortic valve. Mild aortic valve regurgitation. Mitral Valve: Mild mitral valve regurgitation. Annular region thickened with prior annuloplasty. Pulmonic Valve: Normal structure of the pulmonic valve. Tricuspid Valve: Normal structure of the tricuspid valve. Normal right ventricular systolic pressure. Mild tricuspid regurgitation. Pericardium: Normal pericardium with no significant pericardial effusion. Aorta: Normal aortic root. IVC: The IVC is not well visualized. Pulmonary Artery: Normal pulmonary artery size. CONCLUSIONS: Reduced left ventricular cavity size. Normal left ventricular systolic function with no focal wall motion abnormalities. Moderate concentric left ventricular hypertrophy. Ejection fraction is measured at 62 %. There is mild enlargement of left atrium. Mild mitral valve regurgitation. Annular region thickened with prior annuloplasty. Normal structure of the aortic valve. Mild aortic valve regurgitation. Normal structure of the tricuspid valve. Normal right ventricular systolic pressure. Mild tricuspid regurgitation. Electronically Signed By: Neri Hutchinson MD, [facility] 09/04/2024 11:50:54 AM FLOUR BLENDER Procedure Note Neri Hutchinson MD - 09/04/2024 [place] [address] Echocardiogram Report Patient Name: MICHELLE HENRY ANN : 1945 Study Date: 09/04/2024 10:24:27 AM Gender: F Tech: RF Location: [id number] [facility] Provider: ELIDIA BERMUDEZ Height(Cm): 155 BSA: 1.63 Weight(Kg): 62 Heart Rate: 57 BP: 129/72 Quality: Good Order Provider: ELIDIA BERMUDEZ PROCEDURES: Echocardiographic Report: Transthoracic echocardiogram with complete 2D, M-Mode, and color Dopplerexamination. INDICATIONS: S/p CABG MVR. MEASUREMENTS: 2D/MM Value Range DopplerValue Range EF Mod BP 62 % [ 54 - 74 ] SANAZ Vmax1.94 cm2 LVIDd 2D 3.55 cm [ 3.80 - 5.20 ] AV Mean PG 5mmHg LVIDs 2D 2.94 cm [ 2.20 - 3.50 ] AV Peak Vel1.68 m/s [ 1.00 - 1.70 ] LVPWd 2D 1.21 cm [ 0.60 - 0.90 ] AV VTI35.56 cm IVSd 2D 1.38 cm [ 0.60 - 0.90 ] LVOT Diam1.96 cm LA Dimension 2D 3.52 cm [ 2.70 - 3.80 ] LVOT Peak Vel1.08 m/s [ 0.70 - 1.10 ] LA Dimension MM 4.62 cm [ 2.70 - 3.80 ] LVOT VTI20.33 cm AoR Diam 2D 3.14 cm [ 2.70 - 3.70 ] SI LVOT38.3 ml/m2 [ >= 35.0 ] AoR Diam MM 3.11 cm [ 2.70 - 3.70 ] MV E Peak Vel1.29 m/s [ 0.60 - 1.30 ] LA Volume Index 48.95 cc/m2 [ 16.00 - 34.00 ] MV Mean PG 3mmHg ACS MM 1.70 cm MV PHT 89msec [ 20 - 100 ] MVA PHT 2.48 cm2 MV Decel Time 307 msec [ 104 - 258 ] PV Peak Salvatore 0.91 m/s [ 0.40 - 0.80 ] TR Peak Salvatore 2.93 m/s [ 1.00 - 2.80 ] TR Peak PG 34 mmHg E` 0.05 m/s E/E` 19.02 2D/MM Value Range DopplerValue Range - FINDINGS: Atrial Septum: Normal atrial septum. Left Ventricle: Reduced left ventricular cavity size. Normal left ventricular systolicfunction with no focal wall motion abnormalities. Moderate concentric left ventricularhypertrophy. Ejection fraction is measured at 62 %. Left Atrium: There is mild enlargement of left atrium. Right Ventricle: Normal right ventricular size. Normal right ventricular systolicfunction. Right Atrium: The right atrium is normal in size. Aortic Valve: Normal structure of the aortic valve. Mild aortic valve regurgitation. Mitral Valve: Mild mitral valve regurgitation. Annular region thickened with priorannuloplasty. Pulmonic Valve: Normal structure of the pulmonic valve. Tricuspid Valve: Normal structure of the tricuspid valve. Normal right ventricular systolicpressure. Mild tricuspid regurgitation. Pericardium: Normal pericardium with no significant pericardial effusion. Aorta: Normal aortic root. IVC: The IVC is not well visualized. Pulmonary Artery: Normal pulmonary artery size. CONCLUSIONS: Reduced left ventricular cavity size. Normal left ventricular systolicfunction with no focal wall motion abnormalities. Moderate concentric left ventricularhypertrophy. Ejection fraction is measured at 62 %. There is mild enlargement of left atrium. Mild mitral valve regurgitation. Annular region thickened with priorannuloplasty. Normal structure of the aortic valve. Mild aortic valve regurgitation. Normal structure of the tricuspid valve. Normal right ventricular systolicpressure. Mild tricuspid regurgitation. Electronically Signed By: Neri Hutchinson MD, [facility] 09/04/2024 11:50:54 AM FLOUR BLENDER us Elidia Bermudez NP CV ECHO PROCEDURES Final Result * ECG 12 lead (09/04/2024 9:45 AM FLOUR BLENDER) 09/04/2024 9:45 AM FLOUR BLENDER Narrative [facility] - 09/04/2024 11:12 AM FLOUR BLENDER Vent Rate: 60 bpm RR Interval: 991 msec ME Interval: 0 msec QRS Duration: 150 msec QT Interval: 450 msec QTC Interval: 451 msec P-R-T [place]: 0 - -47 - 70 degrees IMPRESSION: Electronic ventricular pacemaker ABNORMAL ECG Compared to prior EKG, heart rate has decreased Ventricular pacing is now present Electronically Signed By: Prabhjot Sutton MD Sushma Ware SWITCHBOARD OPERATOR ECG ORDERABLES Final Resu lt [facility] * XR Chest 1 View - Portable - in AM (09/04/2024 5:53 AM FLOUR BLENDER) Anatomical Region Laterality Modality Body, Chest N/A Computed Radiogr aphy 09/04/2024 12:2 1 PM FLOUR BLENDER Impressions 09/04/2024 12:21 PM FLOUR BLENDER FINDINGS/IMPRESSION: Small bilateral pleural effusions. No pneumothorax. No cardiomegaly. Poststernotomy changes and aortic valvuloplasty. Similar pulmonary vascular congestion. Decrease in interstitial opacities in the lungs bilaterally with only residual small opacities in the bilateral lower lobes most consistent with interstitial pulmonary edema. Electronically signed by: Deon Moreira II, D.O. Narrative 09/04/2024 12:21 PM FLOUR BLENDER EXAMINATION: XR CHEST 1 VIEW DATE: 09/04/2024 3:40 AM INDICATION: Cardiac surgery. COMPARISON: 09/03/2024. Procedure Note Deon Moreira II, - 09/04/2024 EXAMINATION: XR CHEST 1 VIEW DATE: 09/04/2024 3:40 AM INDICATION: Cardiac surgery. COMPARISON: 09/03/2024. IMPRESSION: FINDINGS/IMPRESSION: Small bilateral pleural effusions. No pneumothorax. No cardiomegaly. Poststernotomy changes and aortic valvuloplasty. Similar pulmonary vascular congestion. Decrease in interstitial opacities in the lungs bilaterally with only residual small opacities in the bilateral lower lobes most consistent with interstitial pulmonary edema. Electronically signed by: Deon Moreira II, D.O. us Dusty Bernal MD IMG XR PROCEDURES Final Result * eGFR (09/04/2024 2:47 AM FLOUR BLENDER) eGFR 77 >=60 mL/min/1. 73 m2 Comment: Interpretive Data Reference Interval Normal >/= 90 mL/min/1.73m2 Mildly decreased* 60 - 89 mL/min/1.73m2 Mildly to moderately decreased 45 - 59 mL/min/1.73m2 Moderately to severely decreased 30 - 44 mL/min/1.73m2 Severely decreased 15 - 29 mL/min/1.73m2 Kidney Failure < 15 mL/min/1.73m2 *Relative to young adult level Estimated glomerular filtration rate is determined by the 2020 CKD-EPI equation recommended by the National Kidney Foundation (A Unifying Approach to GFR Estimation: Recommendations of the NKF-ASK Task Force on Reassessing the Inclusion of Race in Diagnosing Kidney Disease, JASN 2020). The CKD-EPI equation should not be used for patients with unstable renal function and has not been validated in children and those over 70. Current interpretive data was last reviewed 2021. Blood 09/04/2024 2:47 AM FLOUR BLENDER 09/04/2024 2:47 AM FLOUR BLENDER us Pily Escudero NP LAB BLOOD ORDERABLES Jacky al Result [facility] [address] Department [place] [address] * Magnesium (09/04/2024 2:47 AM FLOUR BLENDER) Pathologist [facility] Magnesium 2.3 1.4 - 2.5 mg/dL Blood 09/04/2024 2:47 AM FLOUR BLENDER 09/04/2024 2:47 AM FLOUR BLENDER Pily Escudero SWITCHBOARD OPERATOR LAB BLOOD ORDERABLES Fin al Result [facility] [address] [place] [address] * (ABNORMAL) Hepatic function panel (09/04/2024 2:47 AM FLOUR BLENDER) Pathologist [facility] Bilirubin, total 0.9 0.1 - 1.2 mg/dL Bilirubin, direct 0.3 0.1 - 0.3 mg/dL [facility] Protein, pl 5.7(L) 6.5 - 8.5 g/dL [facility] Albumin 3.4(L) 3.5 - 5.0 g/dL [facility] Alk phos 200(H) 40 - 130 Units/L [facility] ALT 289(H) 7 - 45 Units/L [facility] AST 94(H) 10 - 45 Units/L [facility] Blood 09/04/2024 2:47 AM FLOUR BLENDER 09/04/2024 8:51 AM FLOUR BLENDER Sushma Ware SWITCHBOARD OPERATOR LAB BLOOD ORDERABLES Final Result Performing Organization Address City/[facility]/ZIP Co de Phone Number [facility] [address] Department [place] [address] * (ABNORMAL) Renal function panel (09/04/2024 2:47 AM FLOUR BLENDER) Pathologist [facility] Sodium 138 135 - 145 mmol/L Potassium, pl 3.1(L) 3.3 - 4.9 mmol/L [facility] Chloride 96(L) 97 - 110 mmol/L [facility] CO2 28 22 - 32 mmol/L [facility] Anion gap 14 2 - 15 mmol/L [facility] BUN 41(H) 6 - 25 mg/dL [facility] Creatinine 0.79 0.60 - 1.10 mg/dL [facility] Glucose 131 70 - 199 mg/dL [facility] Comment: Interpretive Data Fasting glucose >/= 126 mg/dl is diagnostic for diabetes. Fasting is defined as no caloric intake for at least 8 hours. Fasting glucose between 100 mg/dl to 125 mg/dl is diagnostic of prediabetes. In a patient with classic symptoms of hyperglycemia or hyperglycemic crisis, a random glucose >/= 200 mg/dl is diagnostic for diabetes. In the absence of unequivocal hyperglycemia, results should be confirmed by repeat testing. The classification and Diagnosis of Diabetes Diabetes Care 2021; 46: S19-S40. Current interpretive data was last revised 2022. Calcium 8.3(L) 8.5 - 10.3 mg/dL [facility] Phosphorus, pl 3.1 2.3 - 4.5 mg/dL [facility] Albumin 3.4(L) 3.5 - 5.0 g/dL [facility] Blood 09/04/2024 2:47 AM FLOUR BLENDER 09/04/2024 2:47 AM FLOUR BLENDER us Pily Escudero NP LAB BLOOD ORDERABLES Fin al Result [facility] [address] Department [place] [address] * (ABNORMAL) CBC without differential (09/04/2024 2:45 AM FLOUR BLENDER) WBC 16.4(H) 3.8 - 9.9 K/cumm Hgb 9.1(L) 11.9 - 15.5 g/dL [facility] Hct 28.4(L) 35.6 - 45.5 % [facility] Plt 253 150 - 400 K/cumm [facility] MPV 11.6 9.1 - 12.3 fL [facility] RBC 3.10(L) 3.90 - 5.20 M/cumm [facility] MCV 91.6 81.3 - 96.4 fL [facility] MCH 29.4 27.1 - 33.3 pg [facility] MCHC 32.0(L) 32.3 - 35.7 g/dL [facility] RDW CV 14.7 11.1 - 14.9 % [facility] RDW SD 48.4(H) 35.7 - 48.1 fL [facility] NRBC abs 0.13(H) 0.00 - 0.01 K/cumm [facility] Blood 09/04/2024 2:45 AM FLOUR BLENDER 09/04/2024 2:45 AM FLOUR BLENDER Pily Escudero NP LAB BLOOD ORDERABLES Fin al Result Performing Organization Address [facility] Co de Phone Number [facility] [address] Department [place] [address] * ECG 12 lead (09/03/2024 4:06 PM FLOUR BLENDER) 09/03/2024 4:06 PM FLOUR BLENDER Narrative [facility] - 09/03/2024 4:30 PM FLOUR BLENDER Vent Rate: 100 bpm RR Interval: 600 msec ME Interval: 0 msec QRS Duration: 83 msec QT Interval: 338 msec QTC Interval: 395 msec P-R-T [place]: 0 - -24 - -61 degrees IMPRESSION: ATRIAL FIBRILLATION WITH RAPID VENTRICULAR RESPONSE BORDERLINE LEFT AXIS DEVIATION [QRS AXIS < -20] MODERATE VOLTAGE CRITERIA FOR LVH, CONSIDER NORMAL VARIANT [MEETS CRITERIA IN ONE OF: R(aVL), S(V1), R(V5), R(V5/V6)+S(V1)] NONSPECIFIC ST \T\ T-WAVE ABNORMALITY ABNORMAL RHYTHM ECG Compared to prior EKG, atrial fibrillation replaced atrial paced rhythm Heart rate has increased Electronically Signed By: Prabhjot Sutton MD Dusty Bernal MD ECG ORDERABLES Final Result Performing Organization Address [facility] de Phone Number [facility] [employer] [facility] * XR Chest PA Lateral 2 Views (09/03/2024 9:51 AM FLOUR BLENDER) Anatomical Region Laterality Modality Body, Chest N/A Computed Radiogr aphy 09/03/2024 10:5 2 AM FLOUR BLENDER Impressions 09/03/2024 10:52 AM FLOUR BLENDER Infiltrates, effusions, atelectasis and pulmonary vascular congestion, unchanged. Electronically signed by: Chato Swain M.D. Narrative 09/03/2024 10:52 AM FLOUR BLENDER EXAMINATION: XR CHEST PA LATERAL 2 VIEWS DATE: 09/03/2024 9:45 AM HISTORY: need better view- assess for effusions FINDINGS: Sternal plates and wires indicate prior cardiac surgery. Prosthetic heart valve and epicardial pacing wires are present. Bilateral lower lobe infiltrates and atelectasis are present. Small effusions are present. Pulmonary vascular congestion is present. The heart is enlarged. There is no pneumothorax. Since earlier examination on the same day, little change has occurred. Procedure Note Chato Swain MD - 09/03/2024 EXAMINATION: XR CHEST PA LATERAL 2 VIEWS DATE: 09/03/2024 9:45 AM HISTORY: need better view- assess for effusions FINDINGS: Sternal plates and wires indicate prior cardiac surgery. Prosthetic heart valve and epicardial pacing wires are present. Bilateral lower lobe infiltrates and atelectasis are present. Small effusions are present. Pulmonary vascular congestion is present. The heart is enlarged. There is no pneumothorax. Since earlier examination on the same day, little change has occurred. IMPRESSION: Infiltrates, effusions, atelectasis and pulmonary vascular congestion, unchanged. Electronically signed by: Chato Swain M.D. Elidia Bermudez SWITCHBOARD OPERATOR IMG XR PROCEDURES Final R esult * POCT glucose (09/03/2024 7:37 AM FLOUR BLENDER) Glucose, POC 105 70 - 199 mg/dL Blood 09/03/2024 7:37 AM FLOUR BLENDER 09/03/2024 7:37 AM FLOUR BLENDER us Dusty Bernal MD LAB POCT ORDERABLES - DEVICE F inal Result [facility] [address] Department [place] [address] * XR Chest 1 View - Portable - in AM (09/03/2024 4:40 AM FLOUR BLENDER) Anatomical Region Laterality Modality Body, Chest N/A Computed Radiogr aphy 09/03/2024 10:1 8 AM FLOUR BLENDER Impressions 09/03/2024 10:18 AM FLOUR BLENDER FINDINGS/IMPRESSION: Small bilateral pleural effusions. Aortic valvuloplasty and poststernotomy changes. Cardiac mediastinal silhouette within normal limits. Mild pulmonary vascular congestion. No pneumothorax. No acute osseous abnormality. Electronically signed by: Deon Moreira II, D.O. Narrative 09/03/2024 10:18 AM FLOUR BLENDER EXAMINATION: XR CHEST 1 VIEW DATE: 09/03/2024 3:10 AM INDICATION: Cardiac surgery. COMPARISON: 09/02/2024. Procedure Note Deon Moreira II, DO - 09/03/2024 EXAMINATION: XR CHEST 1 VIEW DATE: 09/03/2024 3:10 AM INDICATION: Cardiac surgery. COMPARISON: 09/02/2024. IMPRESSION: FINDINGS/IMPRESSION: Small bilateral pleural effusions. Aortic valvuloplasty and poststernotomy changes. Cardiac mediastinal silhouette within normal limits. Mild pulmonary vascular congestion. No pneumothorax. No acute osseous abnormality. Electronically signed by: Deon Moreira II, D.O. Dusty Bernal MD IM XR PROCEDURES Final Result * eGFR (09/03/2024 4:37 AM FLOUR BLENDER) eGFR 63 >=60 mL/min/1. 73 m2 Comment: Interpretive Data Reference Interval Normal >/= 90 mL/min/1.73m2 Mildly decreased* 60 - 89 mL/min/1.73m2 Mildly to moderately decreased 45 - 59 mL/min/1.73m2 Moderately to severely decreased 30 - 44 mL/min/1.73m2 Severely decreased 15 - 29 mL/min/1.73m2 Kidney Failure < 15 mL/min/1.73m2 *Relative to young adult level Estimated glomerular filtration rate is determined by the 2020 CKD-EPI equation recommended by the National Kidney Foundation (A Unifying Approach to GFR Estimation: Recommendations of the NKF-ASK Task Force on Reassessing the Inclusion of Race in Diagnosing Kidney Disease, JASN 2020). The CKD-EPI equation should not be used for patients with unstable renal function and has not been validated in children and those over 70. Current interpretive data was last reviewed 2021. Blood 09/03/2024 4:37 AM FLOUR BLENDER 09/03/2024 5:39 AM FLOUR BLENDER Pily Escudero SWITCHBOARD OPERATOR LAB BLOOD ORDERABLES Fin al Result Performing Organization Address City/[facility]/ZIP Co de Phone Number [facility] [address] [place] [address] * (ABNORMAL) CBC without differential (09/03/2024 4:37 AM FLOUR BLENDER) WBC 17.1(H) 3.8 - 9.9 K/cumm Hgb 9.0(L) 11.9 - 15.5 g/dL [facility] Hct 28.3(L) 35.6 - 45.5 % [facility] Plt 178 150 - 400 K/cumm [facility] MPV 12.3 9.1 - 12.3 fL [facility] RBC 3.09(L) 3.90 - 5.20 M/cumm [facility] MCV 91.6 81.3 - 96.4 fL [facility] MCH 29.1 27.1 - 33.3 pg [facility] MCHC 31.8(L) 32.3 - 35.7 g/dL [facility] RDW CV 15.0(H) 11.1 - 14.9 % [facility] RDW SD 49.4(H) 35.7 - 48.1 fL [facility] NRBC abs 0.38(H) 0.00 - 0.01 K/cumm [facility] Blood 09/03/2024 4:37 AM FLOUR BLENDER 09/03/2024 5:39 AM FLOUR BLENDER Pily Escudero SWITCHBOARD OPERATOR LAB BLOOD ORDERABLES Fin al Result Performing Organization Address City/[facility]/ZIP Co de Phone Number [facility] [address] [place] [address] * Magnesium (09/03/2024 4:37 AM FLOUR BLENDER) Magnesium 2.5 1.4 - 2.5 mg/dL Blood 09/03/2024 4:37 AM FLOUR BLENDER 09/03/2024 5:39 AM FLOUR BLENDER Pily Escudero SWITCHBOARD OPERATOR LAB BLOOD ORDERABLES Fin al Result Performing Organization Address City/[facility]/ZIP Co de Phone Number [facility] [address] Department [place] [address] * (ABNORMAL) Renal function panel (09/03/2024 4:37 AM FLOUR BLENDER) Pathologist [facility] Sodium 137 135 - 145 mmol/L Potassium, pl 3.5 3.3 - 4.9 mmol/L [facility] Chloride 99 97 - 110 mmol/L [facility] CO2 24 22 - 32 mmol/L [facility] Anion gap 14 2 - 15 mmol/L [facility] BUN 50(H) 6 - 25 mg/dL [facility] Creatinine 0.93 0.60 - 1.10 mg/dL [facility] Glucose 104 70 - 199 mg/dL [facility] Comment: Interpretive Data Fasting glucose >/= 126 mg/dl is diagnostic for diabetes. Fasting is defined as no caloric intake for at least 8 hours. Fasting glucose between 100 mg/dl to 125 mg/dl is diagnostic of prediabetes. In a patient with classic symptoms of hyperglycemia or hyperglycemic crisis, a random glucose >/= 200 mg/dl is diagnostic for diabetes. In the absence of unequivocal hyperglycemia, results should be confirmed by repeat testing. The classification and Diagnosis of Diabetes Diabetes Care 2021; 46: S19-S40. Current interpretive data was last revised 2022. Calcium 8.6 8.5 - 10.3 mg/dL [facility] Phosphorus, pl 3.8 2.3 - 4.5 mg/dL [facility] Albumin 3.4(L) 3.5 - 5.0 g/dL [facility] Blood 09/03/2024 4:37 AM FLOUR BLENDER 09/03/2024 5:39 AM FLOUR BLENDER Pily Escudero SWITCHBOARD OPERATOR LAB BLOOD ORDERABLES Fin al Result [facility] [address] [facility] [address] * POCT glucose (09/02/2024 9:46 PM FLOUR BLENDER) Glucose, POC 105 70 - 199 mg/dL Blood 09/02/2024 9:46 PM FLOUR BLENDER 09/02/2024 9:46 PM FLOUR BLENDER Dusty Bernal MD LAB POCT ORDERABLES - DEVICE F inal Result Performing Organization Address [facility] Co de Phone Number [facility] [address] [facility] [place] [address] * POCT glucose (09/02/2024 5:45 PM FLOUR BLENDER) Glucose, POC 122 70 - 199 mg/dL Blood 09/02/2024 5:45 PM FLOUR BLENDER 09/02/2024 5:45 PM FLOUR BLENDER Dusty Bernal MD LAB POCT ORDERABLES - DEVICE F inal Result Performing Organization Address [facility] Co de Phone Number [facility] [address] [facility] [place] [address] * POCT glucose (09/02/2024 12:43 PM FLOUR BLENDER) Glucose, POC 120 70 - 199 mg/dL Blood 09/02/2024 12:4 3 PM FLOUR BLENDER 09/02/2024 12:43 PM FLOUR BLENDER Dusty Bernal MD LAB POCT ORDERABLES - DEVICE F inal Result Performing Organization Address City/[facility]/ZIP Co de Phone Number [facility] [address] [facility] [place] [address] * XR Kub (09/02/2024 9:52 AM FLOUR BLENDER) Anatomical Region Laterality Modality Body, Abdomen N/A Computed Radiogr aphy 09/02/2024 10:0 0 AM FLOUR BLENDER Impressions 09/02/2024 10:00 AM FLOUR BLENDER No bowel obstruction or gross free intraperitoneal air. Moderate to large amount of fecal material in the rectum. Electronically signed by: Brown Kohler M.D. Narrative 09/02/2024 10:00 AM FLOUR BLENDER EXAMINATION: XR KUB DATE: 09/02/2024 9:35 AM. HISTORY: assess for ileus/stool burden COMPARISON: 08/31/2024 Procedure Note Brown Kohler MD - 09/02/2024 EXAMINATION: XR KUB DATE: 09/02/2024 9:35 AM. HISTORY: assess for ileus/stool burden COMPARISON: 08/31/2024 IMPRESSION: No bowel obstruction or gross free intraperitoneal air. Moderate to large amount of fecal material in the rectum. Electronically signed by: Brown Kohler M.D. Dusty Bernal MD IMG XR PROCEDURES Final Result * POCT glucose (09/02/2024 8:21 AM FLOUR BLENDER) Glucose, POC 138 70 - 199 mg/dL Blood 09/02/2024 8:21 AM FLOUR BLENDER 09/02/2024 8:21 AM FLOUR BLENDER Dusty Bernal MD LAB POCT ORDERABLES - DEVICE F inal Result Performing Organization Address City/State/[facility] Co nc Phone Number [facility] [address] Department [place] [address] * XR Chest 1 View - Portable - in AM (09/02/2024 6:02 AM FLOUR BLENDER) Anatomical Region Laterality Modality Body, Chest N/A Computed Radiogr aphy 09/02/2024 7:53 AM FLOUR BLENDER Impressions 09/02/2024 7:53 AM FLOUR BLENDER A comparison study is dated 09/01/2024. Again seen are changes of previous median sternotomy and mitral valve repair/prosthesis and CABG. A right internal jugular central venous catheter is again noted, the tip terminating near the superior atriocaval junction. An epicardial pacing wire leads are noted, projecting over the epigastrium and upper abdomen. The heart is enlarged. The thoracic aorta is tortuous and contains atherosclerotic plaque. Lung volumes are diminished, and there are increased interstitial and alveolar opacities in both lungs compared to yesterday, most suspicious for worsening pulmonary edema. There are probably small layering pleural effusions bilaterally. No pneumothorax. Electronically signed by: You Trevizo M.D. Narrative 09/02/2024 7:53 AM FLOUR BLENDER EXAMINATION: XR CHEST 1 VIEW Procedure Note You Trevizo MD - 09/02/2024 EXAMINATION: XR CHEST 1 VIEW IMPRESSION: A comparison study is dated 09/01/2024. Again seen are changes of previous median sternotomy and mitral valve repair/prosthesis and CABG. A right internal jugular central venous catheter is again noted, the tip terminating near the superior atriocaval junction. An epicardial pacing wire leads are noted, projecting over the epigastrium and upper abdomen. The heart is enlarged. The thoracic aorta is tortuous and contains atherosclerotic plaque. Lung volumes are diminished, and there are increased interstitial and alveolar opacities in both lungs compared to yesterday, most suspicious for worsening pulmonary edema. There are probably small layering pleural effusions bilaterally. No pneumothorax. Electronically signed by: You Trevizo M.D. Dusty Bernal MD IMG XR PROCEDURES Final Result * (ABNORMAL) eGFR (09/02/2024 4:08 AM FLOUR BLENDER) eGFR 43(L) >=60 mL/min/1. 73 m2 Comment: Interpretive Data Reference Interval Normal >/= 90 mL/min/1.73m2 Mildly decreased* 60 - 89 mL/min/1.73m2 Mildly to moderately decreased 45 - 59 mL/min/1.73m2 Moderately to severely decreased 30 - 44 mL/min/1.73m2 Severely decreased 15 - 29 mL/min/1.73m2 Kidney Failure < 15 mL/min/1.73m2 *Relative to young adult level Estimated glomerular filtration rate is determined by the 2020 CKD-EPI equation recommended by the National Kidney Foundation (A Unifying Approach to GFR Estimation: Recommendations of the NKF-ASK Task Force on Reassessing the Inclusion of Race in Diagnosing Kidney Disease, JASN 2020). The CKD-EPI equation should not be used for patients with unstable renal function and has not been validated in children and those over 70. Current interpretive data was last reviewed 2021. Blood 09/02/2024 4:08 AM FLOUR BLENDER 09/02/2024 4:48 AM FLOUR BLENDER Pily Escudero SWITCHBOARD OPERATOR LAB BLOOD ORDERABLES Fin al Result Performing Organization Address City/[facility]/ZIP Co de Phone Number [facility] [address] Department [place] [address] * (ABNORMAL) CBC without differential (09/02/2024 4:08 AM FLOUR BLENDER) WBC 14.9(H) 3.8 - 9.9 K/cumm Hgb 8.7(L) 11.9 - 15.5 g/dL [facility] Hct 27.8(L) 35.6 - 45.5 % [facility] Plt 158 150 - 400 K/cumm [facility] MPV 12.7(H) 9.1 - 12.3 fL [facility] RBC 3.03(L) 3.90 - 5.20 M/cumm [facility] MCV 91.7 81.3 - 96.4 fL [facility] MCH 28.7 27.1 - 33.3 pg [facility] MCHC 31.3(L) 32.3 - 35.7 g/dL [facility] RDW CV 14.8 11.1 - 14.9 % [facility] RDW SD 49.5(H) 35.7 - 48.1 fL [facility] NRBC abs 0.16(H) 0.00 - 0.01 K/cumm [facility] Blood 09/02/2024 4:08 AM FLOUR BLENDER 09/02/2024 4:50 AM FLOUR BLENDER Pily Escudero NP LAB BLOOD ORDERABLES Fin al Result [facility] [address] [place] [address] * Magnesium (09/02/2024 4:08 AM FLOUR BLENDER) Pathologist [facility] Magnesium 2.4 1.4 - 2.5 mg/dL Blood 09/02/2024 4:08 AM FLOUR BLENDER 09/02/2024 4:48 AM FLOUR BLENDER Pily Escudero SWITCHBOARD OPERATOR LAB BLOOD ORDERABLES Fin al Result Performing Organization Address [facility] de Phone Number [facility] [address] [place] [address] * (ABNORMAL) Renal function panel (09/02/2024 4:08 AM FLOUR BLENDER) Pathologist [facility] Sodium 139 135 - 145 mmol/L Potassium, pl 3.8 3.3 - 4.9 mmol/L [facility] Chloride 100 97 - 110 mmol/L [facility] CO2 22 22 - 32 mmol/L [facility] Anion gap 17(H) 2 - 15 mmol/L [facility] BUN 46(H) 6 - 25 mg/dL [facility] Creatinine 1.28(H) 0.60 - 1.10 mg/dL [facility] Glucose 145 70 - 199 mg/dL [facility] Comment: Interpretive Data Fasting glucose >/= 126 mg/dl is diagnostic for diabetes. Fasting is defined as no caloric intake for at least 8 hours. Fasting glucose between 100 mg/dl to 125 mg/dl is diagnostic of prediabetes. In a patient with classic symptoms of hyperglycemia or hyperglycemic crisis, a random glucose >/= 200 mg/dl is diagnostic for diabetes. In the absence of unequivocal hyperglycemia, results should be confirmed by repeat testing. The classification and Diagnosis of Diabetes Diabetes Care 2021; 46: S19-S40. Current interpretive data was last revised 2022. Calcium 8.3(L) 8.5 - 10.3 mg/dL [facility] Phosphorus, pl 4.4 2.3 - 4.5 mg/dL [facility] Albumin 3.5 3.5 - 5.0 g/dL [facility] Blood 09/02/2024 4:08 AM FLOUR BLENDER 09/02/2024 4:48 AM FLOUR BLENDER Pily Escudero SWITCHBOARD OPERATOR LAB BLOOD ORDERABLES Fin al Result Performing Organization Address City/[facility]/ZIP Co de Phone Number [facility]IE [address] [facility] [place] [address] * POCT glucose (09/01/2024 10:07 PM FLOUR BLENDER) Glucose, POC 158 70 - 199 mg/dL Blood 09/01/2024 10:0 7 PM FLOUR BLENDER 09/01/2024 10:07 PM FLOUR BLENDER Dusty Bernal MD LAB POCT ORDERABLES - DEVICE F inal Result Performing Organization Address [facility] de Phone Number [facility] [address] [place] [address] * POCT glucose (09/01/2024 4:54 PM FLOUR BLENDER) Glucose, POC 120 70 - 199 mg/dL Blood 09/01/2024 4:54 PM FLOUR BLENDER 09/01/2024 4:54 PM FLOUR BLENDER Dusty Bernal MD LAB POCT ORDERABLES - DEVICE F inal Result Performing Organization Address [facility] Co de Phone Number AVAVLAD [id number] [place] [address] * POCT glucose (09/01/2024 12:17 PM FLOUR BLENDER) Glucose, POC 118 70 - 199 mg/dL Blood 09/01/2024 12:1 7 PM FLOUR BLENDER 09/01/2024 12:17 PM FLOUR BLENDER Dusty Bernal MD LAB POCT ORDERABLES - DEVICE F inal Result Performing Organization Address [facility] Co de Phone Number [facility] [address] [place] [address] * POCT glucose (09/01/2024 7:45 AM FLOUR BLENDER) Glucose, POC 111 70 - 199 mg/dL Blood 09/01/2024 7:45 AM FLOUR BLENDER 09/01/2024 7:45 AM FLOUR BLENDER Dusty Bernal MD LAB POCT ORDERABLES - [place] [address] [address] [place] [address] * XR Chest 1 View - Portable - in AM (09/01/2024 5:47 AM FLOUR BLENDER) Anatomical Region Laterality Modality Body, Chest N/A Computed Radiogr aphy 09/01/2024 8:37 AM FLOUR BLENDER Impressions 09/01/2024 8:37 AM FLOUR BLENDER Right internal jugular central venous catheter ends in the right atrium. Post CABG and mitral valve replacement. Stable cardiomegaly. Improving hazy opacities throughout both lungs and improving right perihilar and bibasilar opacities likely improving pulmonary vascular congestion, pleural effusions, and atelectasis. Lung volumes remain low. No pneumothorax. Stable cardiomediastinal silhouette. Electronically signed by: Brown Kohler M.D. Narrative 09/01/2024 8:37 AM FLOUR BLENDER EXAMINATION: XR CHEST 1 VIEW DATE: 09/01/2024 4:55 AM. HISTORY: s/p cardiac surg COMPARISON: 08/31/2024 Procedure Note Brown Kohler MD - 09/01/2024 EXAMINATION: XR CHEST 1 VIEW DATE: 09/01/2024 4:55 AM. HISTORY: s/p cardiac surg COMPARISON: 08/31/2024 IMPRESSION: Right internal jugular central venous catheter ends in the right atrium. Post CABG and mitral valve replacement. Stable cardiomegaly. Improving hazy opacities throughout both lungs and improving right perihilar and bibasilar opacities likely improving pulmonary vascular congestion, pleural effusions, and atelectasis. Lung volumes remain low. No pneumothorax. Stable cardiomediastinal silhouette. Electronically signed by: Brown Kohler M.D. Dusty Bernal MD IMG XR PROCEDURES Final Result * eGFR (09/01/2024 2:51 AM FLOUR BLENDER) eGFR 85 >=60 mL/min/1. 73 m2 Comment: Interpretive Data Reference Interval Normal >/= 90 mL/min/1.73m2 Mildly decreased* 60 - 89 mL/min/1.73m2 Mildly to moderately decreased 45 - 59 mL/min/1.73m2 Moderately to severely decreased 30 - 44 mL/min/1.73m2 Severely decreased 15 - 29 mL/min/1.73m2 Kidney Failure < 15 mL/min/1.73m2 *Relative to young adult level Estimated glomerular filtration rate is determined by the 2020 CKD-EPI equation recommended by the National Kidney Foundation (A Unifying Approach to GFR Estimation: Recommendations of the NKF-ASK Task Force on Reassessing the Inclusion of Race in Diagnosing Kidney Disease, JASN 2020). The CKD-EPI equation should not be used for patients with unstable renal function and has not been validated in children and those over 70. Current interpretive data was last reviewed 2021. Blood 09/01/2024 2:51 AM FLOUR BLENDER 09/01/2024 3:18 AM FLOUR BLENDER Pily Escudero SWITCHBOARD OPERATOR LAB BLOOD ORDERABLES Fin al Result AZAM [address] Department [place] [address] * (ABNORMAL) CBC without differential (09/01/2024 2:51 AM FLOUR BLENDER) WBC 11.9(H) 3.8 - 9.9 K/cumm Hgb 7.8(L) 11.9 - 15.5 g/dL [facility] Hct 24.0(L) 35.6 - 45.5 % [facility] Plt 92(L) 150 - 400 K/cumm [facility] MPV 13.2(H) 9.1 - 12.3 fL [facility] RBC 2.64(L) 3.90 - 5.20 M/cumm [facility] MCV 90.9 81.3 - 96.4 fL [facility] MCH 29.5 27.1 - 33.3 pg [facility] MCHC 32.5 32.3 - 35.7 g/dL [facility] RDW CV 14.5 11.1 - 14.9 % [facility] RDW SD 47.6 35.7 - 48.1 fL [facility] NRBC abs 0.03(H) 0.00 - 0.01 K/cumm [facility] Blood 09/01/2024 2:51 AM FLOUR BLENDER 09/01/2024 3:18 AM FLOUR BLENDER Pily Escudero SWITCHBOARD OPERATOR LAB BLOOD ORDERABLES Fin al Result Performing Organization Address [facility] de Phone Number [facility] [address] Department [facility] [place] [address] * (ABNORMAL) Magnesium (09/01/2024 2:51 AM FLOUR BLENDER) Pathologist [facility] Magnesium 2.6(H) 1.4 - 2.5 mg/dL Blood 09/01/2024 2:51 AM FLOUR BLENDER 09/01/2024 3:18 AM FLOUR BLENDER Pily Escudero SWITCHBOARD OPERATOR LAB BLOOD ORDERABLES Fin al Result Performing Organization Address [facility] de Phone Number [facility] [address] [facility] [place] [address] * (ABNORMAL) Renal function panel (09/01/2024 2:51 AM FLOUR BLENDER) Pathologist [facility] Sodium 138 135 - 145 mmol/L Potassium, pl 3.5 3.3 - 4.9 mmol/L [facility] Chloride 102 97 - 110 mmol/L [facility] CO2 27 22 - 32 mmol/L [facility] Anion gap 9 2 - 15 mmol/L [facility] BUN 34(H) 6 - 25 mg/dL [facility] Creatinine 0.73 0.60 - 1.10 mg/dL [facility] Glucose 107 70 - 199 mg/dL [facility] Comment: Interpretive Data Fasting glucose >/= 126 mg/dl is diagnostic for diabetes. Fasting is defined as no caloric intake for at least 8 hours. Fasting glucose between 100 mg/dl to 125 mg/dl is diagnostic of prediabetes. In a patient with classic symptoms of hyperglycemia or hyperglycemic crisis, a random glucose >/= 200 mg/dl is diagnostic for diabetes. In the absence of unequivocal hyperglycemia, results should be confirmed by repeat testing. The classification and Diagnosis of Diabetes Diabetes Care 2021; 46: S19-S40. Current interpretive data was last revised 2022. Calcium 8.2(L) 8.5 - 10.3 mg/dL [facility] Phosphorus, pl 2.3 2.3 - 4.5 mg/dL [facility] Albumin 3.3(L) 3.5 - 5.0 g/dL [facility] Blood 09/01/2024 2:51 AM FLOUR BLENDER 09/01/2024 3:18 AM FLOUR BLENDER Pily Escudero NP LAB BLOOD ORDERABLES Fin al Result Performing Organization Address [facility] Co de Phone Number [facility] [address] [place] [address] * POCT glucose (09/01/2024 1:56 AM FLOUR BLENDER) Glucose, POC 110 70 - 199 mg/dL Blood 09/01/2024 1:56 AM FLOUR BLENDER 09/01/2024 1:56 AM FLOUR BLENDER Dusty Bernal MD LAB POCT ORDERABLES - DEVICE F inal Result Performing Organization Address [facility] Co de Phone Number [facility] [address] [place] [address] * POCT glucose (08/31/2024 9:52 PM FLOUR BLENDER) Glucose, POC 135 70 - 199 mg/dL Blood 08/31/2024 9:52 PM FLOUR BLENDER 08/31/2024 9:52 PM FLOUR BLENDER Dusty Bernal MD LAB POCT ORDERABLES - DEVICE F inal Result AZAM XIE [address] Department [place] [address] * ECG 12 lead (08/31/2024 7:16 PM FLOUR BLENDER) 08/31/2024 7:16 PM FLOUR BLENDER Narrative [facility] - 09/01/2024 1:02 PM FLOUR BLENDER Vent Rate: 80 bpm RR Interval: 749 msec ME Interval: 168 msec QRS Duration: 86 msec QT Interval: 402 msec QTC Interval: 437 msec P-R-T [place]: 80 - -1 - 25 degrees IMPRESSION: ELECTRONIC ATRIAL PACEMAKER WITH INTERMITTENT VENTRICULAR PACING VOLTAGE CRITERIA FOR LVH, CONSIDER NORMAL VARIANT NONSPECIFIC ST \T\ T-WAVE ABNORMALITY Electronically Signed By: Brendan Pool MD, [facility] Dusty Bernal MD ECG ORDERABLES Final Result Performing Organization Address [facility] Phone Number [facility] [employer] [facility] * eGFR (08/31/2024 7:09 PM FLOUR BLENDER) eGFR 72 >=60 mL/min/1. 73 m2 Comment: Interpretive Data Reference Interval Normal >/= 90 mL/min/1.73m2 Mildly decreased* 60 - 89 mL/min/1.73m2 Mildly to moderately decreased 45 - 59 mL/min/1.73m2 Moderately to severely decreased 30 - 44 mL/min/1.73m2 Severely decreased 15 - 29 mL/min/1.73m2 Kidney Failure < 15 mL/min/1.73m2 *Relative to young adult level Estimated glomerular filtration rate is determined by the 2020 CKD-EPI equation recommended by the National Kidney Foundation (A Unifying Approach to GFR Estimation: Recommendations of the NKF-ASK Task Force on Reassessing the Inclusion of Race in Diagnosing Kidney Disease, JASN 2020). The CKD-EPI equation should not be used for patients with unstable renal function and has not been validated in children and those over 70. Current interpretive data was last reviewed 2021. Blood 08/31/2024 7:09 PM FLOUR BLENDER 08/31/2024 7:13 PM FLOUR BLENDER us Dusty Bernal MD LAB BLOOD ORDERABLES Final Res ult [facility] [address] [place] [address] * (ABNORMAL) Differential, auto (08/31/2024 7:09 PM FLOUR BLENDER) Neutrophil abs 11.1(H) 1.5 - 6.5 K/cumm Imm gran abs 0.1 0.0 - 0.1 K/cumm [facility] Lymphocyte abs 1.3 0.8 - 3.3 K/cumm [facility] Monocyte abs 1.0(H) 0.2 - 0.8 K/cumm [facility] Eosinophil abs 0.0 0.0 - 0.5 K/cumm [facility] Basophil abs 0.0 0.0 - 0.1 K/cumm [facility] Neutrophil pct 81.6 % [facility] Comment: Interpretive Data Percent cell count reference ranges are not reported, since discordance with absolute values may lead to misinterpretation of CBC data. Current Interpretive Data was last revised on 2017. Imm gran pct 1.0 % [facility] Comment: Interpretive Data Percent cell count reference ranges are not reported, since discordance with absolute values may lead to misinterpretation of CBC data. Current Interpretive Data was last revised on 2017. Lymphocyte pct 9.5 % [facility] Comment: Interpretive Data Percent cell count reference ranges are not reported, since discordance with absolute values may lead to misinterpretation of CBC data. Current Interpretive Data was last revised on 2017. Monocyte pct 7.6 % [facility] Comment: Interpretive Data Percent cell count reference ranges are not reported, since discordance with absolute values may lead to misinterpretation of CBC data. Current Interpretive Data was last revised on 2017. Eosinophil pct 0.2 % [facility] Comment: Interpretive Data Percent cell count reference ranges are not reported, since discordance with absolute values may lead to misinterpretation of CBC data. Current Interpretive Data was last revised on 2017. Basophil pct 0.1 % [facility] Comment: Interpretive Data Percent cell count reference ranges are not reported, since discordance with absolute values may lead to misinterpretation of CBC data. Current Interpretive Data was last revised on 2017. Blood 08/31/2024 7:09 PM FLOUR BLENDER 08/31/2024 7:13 PM FLOUR BLENDER Dusty Bernal MD LAB BLOOD ORDERABLES Final Res ult Performing Organization Address City/State/[facility] Co de Phone Number [facility] [address] [place] [address] * (ABNORMAL) CBC with auto differential (08/31/2024 7:09 PM FLOUR BLENDER) WBC 13.6(H) 3.8 - 9.9 K/cumm Hgb 8.4(L) 11.9 - 15.5 g/dL [facility] Hct 25.5(L) 35.6 - 45.5 % [facility] Plt 90(L) 150 - 400 K/cumm [facility] MPV 13.0(H) 9.1 - 12.3 fL [facility] RBC 2.84(L) 3.90 - 5.20 M/cumm [facility] MCV 89.8 81.3 - 96.4 fL [facility] MCH 29.6 27.1 - 33.3 pg [facility] MCHC 32.9 32.3 - 35.7 g/dL [facility] RDW CV 14.6 11.1 - 14.9 % [facility] RDW SD 47.4 35.7 - 48.1 fL [facility] NRBC abs 0.00 0.00 - 0.01 K/cumm [facility] Blood 08/31/2024 7:09 PM FLOUR BLENDER 08/31/2024 7:13 PM FLOUR BLENDER Dusty Bernal MD LAB BLOOD ORDERABLES Final Res ult Performing Organization Address City/State/[facility] Co de Phone Number AZAM XIE [address] [facility] [place] [address] * Phosphorus (08/31/2024 7:09 PM FLOUR BLENDER) Pathologist [facility] Phosphorus, pl 3.0 2.3 - 4.5 mg/dL Blood 08/31/2024 7:09 PM FLOUR BLENDER 08/31/2024 7:13 PM FLOUR BLENDER Dusty Bernal MD LAB BLOOD ORDERABLES Final Res ult Performing Organization Address [facility] de Phone Number AZAM XIE [address] [facility] [place] [address] * Magnesium (08/31/2024 7:09 PM FLOUR BLENDER) Pathologist [facility] Magnesium 2.2 1.4 - 2.5 mg/dL Blood 08/31/2024 7:09 PM FLOUR BLENDER 08/31/2024 7:13 PM FLOUR BLENDER Dusty Bernal MD LAB BLOOD ORDERABLES Final Res ult Performing Organization Address [facility] de Phone Number AZAM XIE [address] [facility] [address] * (ABNORMAL) Basic metabolic panel (08/31/2024 7:09 PM FLOUR BLENDER) Pathologist [facility] Sodium 135 135 - 145 mmol/L Potassium, pl 3.1(L) 3.3 - 4.9 mmol/L [facility] Chloride 97 97 - 110 mmol/L [facility] CO2 26 22 - 32 mmol/L [facility] Anion gap 12 2 - 15 mmol/L [facility] BUN 38(H) 6 - 25 mg/dL [facility] Creatinine 0.84 0.60 - 1.10 mg/dL [facility] Glucose 147 70 - 199 mg/dL [facility] Comment: Interpretive Data Fasting glucose >/= 126 mg/dl is diagnostic for diabetes. Fasting is defined as no caloric intake for at least 8 hours. Fasting glucose between 100 mg/dl to 125 mg/dl is diagnostic of prediabetes. In a patient with classic symptoms of hyperglycemia or hyperglycemic crisis, a random glucose >/= 200 mg/dl is diagnostic for diabetes. In the absence of unequivocal hyperglycemia, results should be confirmed by repeat testing. The classification and Diagnosis of Diabetes Diabetes Care 2021; 46: S19-S40. Current interpretive data was last revised 2022. Calcium 8.5 8.5 - 10.3 mg/dL AZAM Blood 08/31/2024 7:09 PM FLOUR BLENDER 08/31/2024 7:13 PM FLOUR BLENDER Dusty Bernal MD LAB BLOOD ORDERABLES Final Res ult Performing Organization Address [facility] Co de Phone Number [facility] [address] [place] [address] * POCT glucose (08/31/2024 5:36 PM FLOUR BLENDER) Glucose, POC 119 70 - 199 mg/dL Blood 08/31/2024 5:36 PM FLOUR BLENDER 08/31/2024 5:36 PM FLOUR BLENDER Dusty Bernal MD LAB POCT ORDERABLES - DEVICE F inal Result Performing Organization Address [facility] de Phone Number [facility] [address] [facility] [place] [address] * POCT glucose (08/31/2024 12:15 PM FLOUR BLENDER) Glucose, POC 165 70 - 199 mg/dL Blood 08/31/2024 12:1 5 PM FLOUR BLENDER 08/31/2024 12:15 PM FLOUR BLENDER Dusty Bernal MD LAB POCT ORDERABLES - DEVICE F inal Result Performing Organization Address [facility] Co de Phone Number [facility] [address] [facility] [place] [address] * XR Kub (08/31/2024 8:05 AM FLOUR BLENDER) Anatomical Region Laterality Modality Body, Abdomen N/A Computed Radiogr aphy 08/31/2024 8:31 AM FLOUR BLENDER Impressions 08/31/2024 8:31 AM FLOUR BLENDER Normal bowel gas pattern. Electronically signed by: Chato Swain M.D. Narrative 08/31/2024 8:31 AM FLOUR BLENDER EXAMINATION: XR KUB DATE: 08/31/2024 7:35 AM HISTORY: emesis overnight FINDINGS: The bowel gas pattern is normal. There is no bowel obstruction or pathologic calcification. Sternal wires, prosthetic heart valve and epicardial pacing wires are present. Procedure Note Chato Swain MD - 08/31/2024 EXAMINATION: XR KUB DATE: 08/31/2024 7:35 AM HISTORY: emesis overnight FINDINGS: The bowel gas pattern is normal. There is no bowel obstruction or pathologic calcification. Sternal wires, prosthetic heart valve and epicardial pacing wires are present. IMPRESSION: Normal bowel gas pattern. Electronically signed by: Chato Swain M.D. Dusty Bernal MD IMG XR PROCEDURES Final Result * POCT glucose (08/31/2024 7:33 AM FLOUR BLENDER) Glucose, POC 123 70 - 199 mg/dL Blood 08/31/2024 7:33 AM FLOUR BLENDER 08/31/2024 7:33 AM FLOUR BLENDER Dusty Bernal MD LAB POCT ORDERABLES - DEVICE F inal Result [facility] [address] [place] [address] * ECG 12 lead (08/31/2024 7:23 AM FLOUR BLENDER) 08/31/2024 7:23 AM FLOUR BLENDER Narrative [facility] - 08/31/2024 8:12 AM FLOUR BLENDER Vent Rate: 67 bpm RR Interval: 889 msec ME Interval: 0 msec QRS Duration: 94 msec QT Interval: 408 msec QTC Interval: 423 msec P-R-T [place]: 0 - -10 - 32 degrees IMPRESSION: JUNCTIONAL RHYTHM WITH ABERRANT CONDUCTION OR VENTRICULAR PREMATURE COMPLEXES VOLTAGE CRITERIA FOR LVH, CONSIDER NORMAL VARIANT Electronically Signed By: Brendan Pool MD, [facility] Dusty Bernal MD ECG ORDERABLES Final Result Performing Organization Address [facility]/ZIP Co de Phone Number [facility] * Critical Care (08/31/2024 6:47 AM FLOUR BLENDER) Narrative Joel Moran MD - 08/31/2024 6:47 AM FLOUR BLENDER Sofia James PA 08/31/2024 8:49 AM Critical Care Performed by: Sofia James PA Authorized by: Sofia James PA CRITICAL CARE: Team: RONALD Shift: AM Level of Billing: Subsequent Hospital Visit Level 3 My time spent with this patient was 45 minutes: Critical Provider Statement: I have seen and examined the patient on this day of service. I have reviewed and confirmed the history, physical exam, laboratory, and radiographic data as documented in the ICU note. I have reviewed and discussed my treatment plan with the patient's team and other medical/insurance healthcare consultant staff. This time was in addition to and separate from care provided by other practitioners on this day of service. I spent time reviewing and interpreting data from bedside monitors, laboratory results, and imaging, I spent time discussing the management of this critically ill patient with consultants and the medical staff and I spent time documenting in the medical record Result [facility] ELINA TANNER Final Result * Oxyhemoglobin, central venous (08/31/2024 4:50 AM FLOUR BLENDER) Oxyhemoglobin, CV 57.7 % Comment: Interpretive Data No reference range established. Current interpretive data was last revised 2019. Blood 08/31/2024 4:50 AM FLOUR BLENDER 08/31/2024 4:59 AM FLOUR BLENDER Dusty Bernal MD LAB BLOOD ORDERABLES Final Res ult AZAM XIE [address] [place] [address] * eGFR (08/31/2024 4:50 AM FLOUR BLENDER) eGFR 73 >=60 mL/min/1. 73 m2 Comment: Interpretive Data Reference Interval Normal >/= 90 mL/min/1.73m2 Mildly decreased* 60 - 89 mL/min/1.73m2 Mildly to moderately decreased 45 - 59 mL/min/1.73m2 Moderately to severely decreased 30 - 44 mL/min/1.73m2 Severely decreased 15 - 29 mL/min/1.73m2 Kidney Failure < 15 mL/min/1.73m2 *Relative to young adult level Estimated glomerular filtration rate is determined by the 2020 CKD-EPI equation recommended by the National Kidney Foundation (A Unifying Approach to GFR Estimation: Recommendations of the NKF-ASK Task Force on Reassessing the Inclusion of Race in Diagnosing Kidney Disease, JASN 2020). The CKD-EPI equation should not be used for patients with unstable renal function and has not been validated in children and those over 70. Current interpretive data was last reviewed 2021. Blood 08/31/2024 4:50 AM FLOUR BLENDER 08/31/2024 4:59 AM FLOUR BLENDER Pily Escudero NP LAB BLOOD ORDERABLES Fin al Result Performing Organization Address [facility] Co de Phone Number AZAM XIE [address] [place] [address] * (ABNORMAL) CBC without differential (08/31/2024 4:50 AM FLOUR BLENDER) WBC 14.1(H) 3.8 - 9.9 K/cumm Hgb 7.8(L) 11.9 - 15.5 g/dL [facility] Hct 23.9(L) 35.6 - 45.5 % [facility] Plt 73(L) 150 - 400 K/cumm [facility] Comment:No clot detected in sample. MPV 13.0(H) 9.1 - 12.3 fL [facility] RBC 2.63(L) 3.90 - 5.20 M/cumm [facility] MCV 90.9 81.3 - 96.4 fL [facility] MCH 29.7 27.1 - 33.3 pg [facility] MCHC 32.6 32.3 - 35.7 g/dL [facility] RDW CV 14.8 11.1 - 14.9 % [facility] RDW SD 49.6(H) 35.7 - 48.1 fL [facility] NRBC abs 0.00 0.00 - 0.01 K/cumm [facility] Blood 08/31/2024 4:50 AM FLOUR BLENDER 08/31/2024 5:00 AM FLOUR BLENDER Pily Escudero SWITCHBOARD OPERATOR LAB BLOOD ORDERABLES Fin al Result Performing Organization Address City/[facility]/ZIP Co de Phone Number [facility] [address] [facility] [place] [address] * Magnesium (08/31/2024 4:50 AM FLOUR BLENDER) Pathologist [facility] Magnesium 2.3 1.4 - 2.5 mg/dL Blood 08/31/2024 4:50 AM FLOUR BLENDER 08/31/2024 4:59 AM FLOUR BLENDER Pily Escudero NP LAB BLOOD ORDERABLES Fin al Result Performing Organization Address [facility] Co de Phone Number [facility] [address] [place] [address] * (ABNORMAL) Renal function panel (08/31/2024 4:50 AM FLOUR BLENDER) Sodium 140 135 - 145 mmol/L Potassium, pl 3.7 3.3 - 4.9 mmol/L [facility] Chloride 105 97 - 110 mmol/L [facility] CH CO2 25 22 - 32 mmol/L [facility] Anion gap 10 2 - 15 mmol/L [facility] BUN 34(H) 6 - 25 mg/dL [facility] Creatinine 0.83 0.60 - 1.10 mg/dL [facility] Glucose 122 70 - 199 mg/dL [facility] Comment: Interpretive Data Fasting glucose >/= 126 mg/dl is diagnostic for diabetes. Fasting is defined as no caloric intake for at least 8 hours. Fasting glucose between 100 mg/dl to 125 mg/dl is diagnostic of prediabetes. In a patient with classic symptoms of hyperglycemia or hyperglycemic crisis, a random glucose >/= 200 mg/dl is diagnostic for diabetes. In the absence of unequivocal hyperglycemia, results should be confirmed by repeat testing. The classification and Diagnosis of Diabetes Diabetes Care 2021; 46: S19-S40. Current interpretive data was last revised 2022. Calcium 8.2(L) 8.5 - 10.3 mg/dL [facility] Phosphorus, pl 3.1 2.3 - 4.5 mg/dL [facility] Albumin 3.6 3.5 - 5.0 g/dL [facility] Blood 08/31/2024 4:50 AM FLOUR BLENDER 08/31/2024 4:59 AM FLOUR BLENDER Pily Escudero NP LAB BLOOD ORDERABLES [facility] al Result AZAM [address] [address] [place] [address] * XR Chest 1 View - Portable - in AM (08/31/2024 4:37 AM FLOUR BLENDER) Anatomical Region Laterality Modality Body, Chest N/A Computed Radiogr aphy 08/31/2024 9:50 AM FLOUR BLENDER Impressions 08/31/2024 9:50 AM FLOUR BLENDER 1. Status post median sternotomy and mitral valve replacement. 2. A right jugular venous catheter remains in place. 3. The left chest tube has been removed. 4. Mild cardiomegaly and pulmonary vascular congestion. 5. Aortic atherosclerosis. 6. Consolidation of the left lung base is unchanged. 7. Small pleural effusions are suspected. Electronically signed by: Marv Fisher M.D. Narrative 08/31/2024 9:50 AM FLOUR BLENDER EXAM: XR CHEST 1 VIEW DATE: 08/31/2024 4:05 AM CLINICAL HISTORY: Status post cardiac surgery. COMPARISON: 08/30/2024 FINDINGS: Portable AP radiograph of the chest was obtained. There are postsurgical changes from a median sternotomy and mitral valve replacement. There is a right jugular venous catheter with tip near the cavoatrial junction. The Trade-Jozef catheter and left chest tube have been removed. There is mild cardiomegaly. The aorta is tortuous. There is pulmonary vascular congestion. Consolidation at the left lung base is stable. Small bilateral pleural effusions are suspected. Procedure Note Marv Fisher MD - 08/31/2024 EXAM: XR CHEST 1 VIEW DATE: 08/31/2024 4:05 AM CLINICAL HISTORY: Status post cardiac surgery. COMPARISON: 08/30/2024 FINDINGS: Portable AP radiograph of the chest was obtained. There are postsurgical changes from a median sternotomy and mitral valve replacement. There is a right jugular venous catheter with tip near the cavoatrial junction. The Trade-Jozef catheter and left chest tube have been removed. There is mild cardiomegaly. The aorta is tortuous. There is pulmonary vascular congestion. Consolidation at the left lung base is stable. Small bilateral pleural effusions are suspected. IMPRESSION: 1. Status post median sternotomy and mitral valve replacement. 2. A right jugular venous catheter remains in place. 3. The left chest tube has been removed. 4. Mild cardiomegaly and pulmonary vascular congestion. 5. Aortic atherosclerosis. 6. Consolidation of the left lung base is unchanged. 7. Small pleural effusions are suspected. Electronically signed by: Marv Fisher M.D. Dusty Bernal MD IMG XR PROCEDURES Final Result * POCT glucose (08/30/2024 8:21 PM FLOUR BLENDER) [employer] Signature Glucose, POC 162 70 - 199 mg/dL Blood 08/30/2024 8:21 PM FLOUR BLENDER 08/30/2024 8:21 PM FLOUR BLENDER Dusty Bernal MD LAB POCT ORDERABLES - DEVICE F inal Result [facility] [address] [address] Department [place] [address] * POCT glucose (08/30/2024 5:26 PM FLOUR BLENDER) Glucose, POC 145 70 - 199 mg/dL Blood 08/30/2024 5:26 PM FLOUR BLENDER 08/30/2024 5:26 PM FLOUR BLENDER Dusty Bernal MD LAB POCT ORDERABLES - DEVICE F inal Result Performing Organization Address [facility] de Phone Number AZAM [address] [address] [facility] [place] [address] * POCT glucose (08/30/2024 12:21 PM FLOUR BLENDER) Glucose, POC 163 70 - 199 mg/dL Blood 08/30/2024 12:2 1 PM FLOUR BLENDER 08/30/2024 12:21 PM FLOUR BLENDER Dusty Bernal MD LAB POCT ORDERABLES - DEVICE F inal Result Performing Organization Address [facility] de Phone Number AZAM [address] [place] [address] * POCT glucose (08/30/2024 8:28 AM FLOUR BLENDER) Glucose, POC 170 70 - 199 mg/dL Blood 08/30/2024 8:28 AM FLOUR BLENDER 08/30/2024 8:28 AM FLOUR BLENDER Dusty Bernal MD LAB POCT ORDERABLES - DEVICE F inal Result Performing Organization Address [facility] de Phone Number [facility] [place] [address] [address] [facility] [place] [address] * Critical Care (08/30/2024 6:46 AM FLOUR BLENDER) Narrative Joel Moran MD - 08/30/2024 6:46 AM FLOUR BLENDER Sofia James PA 08/30/2024 3:12 PM Critical Care Performed by: Sofia James PA Authorized by: Sofia James PA CRITICAL CARE: Team: RONALD Shift: AM Level of Billing: Critical Care My time spent with this patient was 90 minutes: Critical Provider Statement: I have seen and examined the patient on this day of service. I have reviewed and confirmed the history, physical exam, laboratory and radiologic data as documented in the signed ICU note. I have reviewed and discussed my treatment plan with the ICU team and other medical/insurance healthcare consultant staff, making frequent assessments and decisions regarding this patient's complex medical care. Critical Care time was exclusive of time spent performing separately billed procedures, treating other patients, and teaching. This time was in addition to and separate from critical care provided by other practitioners in my group on this day of service. Critical Care was necessary to treat or prevent imminent or life-threatening deterioration of the following conditions: I spent time reviewing and interpreting data from bedside monitors, laboratory results, and imaging, I spent time discussing the management of this critically ill patient with consultants and the medical staff and I spent time documenting in the medical record us Sofia [facility] ELINA TANNER Final Result * XR Chest 1 View - Portable - in AM (08/30/2024 3:48 AM FLOUR BLENDER) Anatomical Region Laterality Modality Body, Chest N/A Computed Radiogr aphy 08/30/2024 11:1 0 AM FLOUR BLENDER Impressions 08/30/2024 11:10 AM FLOUR BLENDER Postop change with mild perihilar interstitial infiltrate/edema, small effusions and bibasilar atelectasis. Electronically signed by: Grace Meza M.D. Narrative 08/30/2024 11:10 AM FLOUR BLENDER Examination: XR CHEST 1 VIEW Date: 08/30/2024 3:25 AM History: s/p cardiac surg Comparison: 08/29/2024. Findings: Cardiomegaly, sternotomy, annuloplasty ring, mediastinal drain, bilateral thoracostomy tubes, and right IJ approach PA catheter noted with tip in the right pulmonary artery. There is mild perihilar interstitial opacities, small effusions and bibasilar atelectasis. No pneumothorax noted. Procedure Note Grace Meza MD - 08/30/2024 Examination: XR CHEST 1 VIEW Date: 08/30/2024 3:25 AM History: s/p cardiac surg Comparison: 08/29/2024. Findings: Cardiomegaly, sternotomy, annuloplasty ring, mediastinal drain, bilateral thoracostomy tubes, and right IJ approach PA catheter noted with tip in the right pulmonary artery. There is mild perihilar interstitial opacities, small effusions and bibasilar atelectasis. No pneumothorax noted. IMPRESSION: Postop change with mild perihilar interstitial infiltrate/edema, small effusions and bibasilar atelectasis. Electronically signed by: Grace Meza M.D. Dusty Bernal MD IMG XR PROCEDURES Final Result * Oxyhemoglobin, central venous (08/30/2024 3:12 AM FLOUR BLENDER) Oxyhemoglobin, CV 95.5 % Comment: Interpretive Data No reference range established. Current interpretive data was last revised 2019. Blood 08/30/2024 3:12 AM FLOUR BLENDER 08/30/2024 3:16 AM FLOUR BLENDER Dusty Bernal MD LAB BLOOD ORDERABLES Final Res ult Performing Organization Address [facility] Co de Phone Number [facility] [address] [address] Department [facility] [place] [address] * (ABNORMAL) Lactate (08/30/2024 3:12 AM FLOUR BLENDER) Pathologist [facility] Lactate 2.4(H) 0.7 - 2.0 mmol/L Blood 08/30/2024 3:12 AM FLOUR BLENDER 08/30/2024 3:16 AM FLOUR BLENDER Esthela Garcia MD LAB BLOOD ORDERABLES Final Re sult Performing Organization Address [facility] Co de Phone [place] [address] [address] [place] [address] * eGFR (08/30/2024 3:12 AM FLOUR BLENDER) eGFR 69 >=60 mL/min/1. 73 m2 Comment: Interpretive Data Reference Interval Normal >/= 90 mL/min/1.73m2 Mildly decreased* 60 - 89 mL/min/1.73m2 Mildly to moderately decreased 45 - 59 mL/min/1.73m2 Moderately to severely decreased 30 - 44 mL/min/1.73m2 Severely decreased 15 - 29 mL/min/1.73m2 Kidney Failure < 15 mL/min/1.73m2 *Relative to young adult level Estimated glomerular filtration rate is determined by the 2020 CKD-EPI equation recommended by the National Kidney Foundation (A Unifying Approach to GFR Estimation: Recommendations of the NKF-ASK Task Force on Reassessing the Inclusion of Race in Diagnosing Kidney Disease, JASN 2020). The CKD-EPI equation should not be used for patients with unstable renal function and has not been validated in children and those over 70. Current interpretive data was last reviewed 2021. Blood 08/30/2024 3:12 AM FLOUR BLENDER 08/30/2024 3:24 AM FLOUR BLENDER us Pily Escudero NP LAB BLOOD ORDERABLES Fin al Result [facility] [address] [address] Department [place] [address] * (ABNORMAL) CBC without differential (08/30/2024 3:12 AM FLOUR BLENDER) WBC 14.4(H) 3.8 - 9.9 K/cumm Hgb 7.7(L) 11.9 - 15.5 g/dL [facility] Hct 23.6(L) 35.6 - 45.5 % [facility] Plt 64(L) 150 - 400 K/cumm [facility] Comment:No clot detected in sample. MPV 12.8(H) 9.1 - 12.3 fL [facility] RBC 2.63(L) 3.90 - 5.20 M/cumm [facility] MCV 89.7 81.3 - 96.4 fL [facility] MCH 29.3 27.1 - 33.3 pg [facility] MCHC 32.6 32.3 - 35.7 g/dL [facility] RDW CV 15.1(H) 11.1 - 14.9 % [facility] RDW SD 49.0(H) 35.7 - 48.1 fL [facility] NRBC abs 0.00 0.00 - 0.01 K/cumm [facility] Blood 08/30/2024 3:12 AM FLOUR BLENDER 08/30/2024 3:16 AM FLOUR BLENDER Pily Escudero SWITCHBOARD OPERATOR LAB BLOOD ORDERABLES Fin al Result Performing Organization Address [facility] de Phone Number [facility] [address] [address] [facility] [place] [address] * Magnesium (08/30/2024 3:12 AM FLOUR BLENDER) [facility] Magnesium 2.1 1.4 - 2.5 mg/dL Blood 08/30/2024 3:12 AM FLOUR BLENDER 08/30/2024 3:16 AM FLOUR BLENDER Pily Escudero SWITCHBOARD OPERATOR LAB BLOOD ORDERABLES Fin al Result Performing Organization Address [facility] de Phone Number [facility] [address] [address] [facility] [place] [address] * (ABNORMAL) Renal function panel (08/30/2024 3:12 AM FLOUR BLENDER) Sodium 142 135 - 145 mmol/L Potassium, pl 3.9 3.3 - 4.9 mmol/L [facility] Chloride 106 97 - 110 mmol/L [facility] CO2 21(L) 22 - 32 mmol/L [facility] Anion gap 15 2 - 15 mmol/L [facility] BUN 24 6 - 25 mg/dL [facility] Creatinine 0.87 0.60 - 1.10 mg/dL [facility] Glucose 194 70 - 199 mg/dL [facility] Comment: Interpretive Data Fasting glucose >/= 126 mg/dl is diagnostic for diabetes. Fasting is defined as no caloric intake for at least 8 hours. Fasting glucose between 100 mg/dl to 125 mg/dl is diagnostic of prediabetes. In a patient with classic symptoms of hyperglycemia or hyperglycemic crisis, a random glucose >/= 200 mg/dl is diagnostic for diabetes. In the absence of unequivocal hyperglycemia, results should be confirmed by repeat testing. The classification and Diagnosis of Diabetes Diabetes Care 202; 46: S19-S40. Current interpretive data was last revised 2022. Calcium 8.7 8.5 - 10.3 mg/dL [facility] Phosphorus, pl 3.1 2.3 - 4.5 mg/dL [facility] Albumin 3.8 3.5 - 5.0 g/dL [facility] Blood 08/30/2024 3:12 AM FLOUR BLENDER 08/30/2024 3:16 AM FLOUR BLENDER Pily Escudero NP LAB BLOOD ORDERABLES [facility] al Result AZAM [address] [address] [place] [address] * eGFR (08/29/2024 11:45 PM FLOUR BLENDER) eGFR 71 >=60 mL/min/1. 73 m2 Comment: Interpretive Data Reference Interval Normal >/= 90 mL/min/1.73m2 Mildly decreased* 60 - 89 mL/min/1.73m2 Mildly to moderately decreased 45 - 59 mL/min/1.73m2 Moderately to severely decreased 30 - 44 mL/min/1.73m2 Severely decreased 15 - 29 mL/min/1.73m2 Kidney Failure < 15 mL/min/1.73m2 *Relative to young adult level Estimated glomerular filtration rate is determined by the 2020 CKD-EPI equation recommended by the National Kidney Foundation (A Unifying Approach to GFR Estimation: Recommendations of the NKF-ASK Task Force on Reassessing the Inclusion of Race in Diagnosing Kidney Disease, JASN 2020). The CKD-EPI equation should not be used for patients with unstable renal function and has not been validated in children and those over 70. Current interpretive data was last reviewed 2021. Blood 08/29/2024 11:4 5 PM FLOUR BLENDER 08/29/2024 11:57 PM FLOUR BLENDER us Dusty Bernal MD LAB BLOOD ORDERABLES Final Res ult [facility] [address] [address] [place] [address] * (ABNORMAL) Differential, auto (08/29/2024 11:45 PM FLOUR BLENDER) Neutrophil abs 12.6(H) 1.5 - 6.5 K/cumm Imm gran abs 0.1 0.0 - 0.1 K/cumm [facility] Lymphocyte abs 1.4 0.8 - 3.3 K/cumm [facility] Monocyte abs 1.3(H) 0.2 - 0.8 K/cumm [facility] Eosinophil abs 0.0 0.0 - 0.5 K/cumm [facility] Basophil abs 0.0 0.0 - 0.1 K/cumm [facility] Neutrophil pct 81.8 % [facility] Comment: Interpretive Data Percent cell count reference ranges are not reported, since discordance with absolute values may lead to misinterpretation of CBC data. Current Interpretive Data was last revised on 2017. Imm gran pct 0.7 % [facility] Comment: Interpretive Data Percent cell count reference ranges are not reported, since discordance with absolute values may lead to misinterpretation of CBC data. Current Interpretive Data was last revised on 2017. Lymphocyte pct 8.8 % [facility] Comment: Interpretive Data Percent cell count reference ranges are not reported, since discordance with absolute values may lead to misinterpretation of CBC data. Current Interpretive Data was last revised on 2017. Monocyte pct 8.4 % [facility] Comment: Interpretive Data Percent cell count reference ranges are not reported, since discordance with absolute values may lead to misinterpretation of CBC data. Current Interpretive Data was last revised on 2017. Eosinophil pct 0.0 % [facility] Comment: Interpretive Data Percent cell count reference ranges are not reported, since discordance with absolute values may lead to misinterpretation of CBC data. Current Interpretive Data was last revised on 2017. Basophil pct 0.3 % [facility] Comment: Interpretive Data Percent cell count reference ranges are not reported, since discordance with absolute values may lead to misinterpretation of CBC data. Current Interpretive Data was last revised on 2017. Blood 08/29/2024 11:4 5 PM FLOUR BLENDER 08/29/2024 11:57 PM FLOUR BLENDER Dusty Bernal MD LAB BLOOD ORDERABLES Final Res ult Performing Organization Address City/[facility]/ZIP Co de Phone Number AZAM XIE [address] [address] Department [facility] [place] [address] * (ABNORMAL) CBC with auto differential (08/29/2024 11:45 PM FLOUR BLENDER) WBC 15.4(H) 3.8 - 9.9 K/cumm Hgb 8.2(L) 11.9 - 15.5 g/dL [facility] Hct 24.5(L) 35.6 - 45.5 % [facility] Plt 73(L) 150 - 400 K/cumm [facility] Comment:No clot detected in sample. MPV 12.8(H) 9.1 - 12.3 fL [facility] RBC 2.76(L) 3.90 - 5.20 M/cumm [facility] MCV 88.8 81.3 - 96.4 fL [facility] MCH 29.7 27.1 - 33.3 pg [facility] MCHC 33.5 32.3 - 35.7 g/dL [facility] RDW CV 14.9 11.1 - 14.9 % [facility] RDW SD 47.5 35.7 - 48.1 fL [facility] NRBC abs 0.00 0.00 - 0.01 K/cumm [facility] Blood 08/29/2024 11:4 5 PM FLOUR BLENDER 08/29/2024 11:57 PM FLOUR BLENDER Dusty Bernal MD LAB BLOOD ORDERABLES Final Res ult Performing Organization Address City/[facility]/ZIP Co de Phone Number AZAM XIE [address] [address] Department of [employer] [place], [place] [id number] * (ABNORMAL) Basic metabolic panel (08/29/2024 11:45 PM FLOUR BLENDER) Sodium 143 135 - 145 mmol/L Potassium, pl 3.8 3.3 - 4.9 mmol/L [facility] Chloride 106 97 - 110 mmol/L [facility] CO2 22 22 - 32 mmol/L [facility] Anion gap 15 2 - 15 mmol/L [facility] BUN 23 6 - 25 mg/dL [facility] Creatinine 0.85 0.60 - 1.10 mg/dL [facility] Glucose 207(H) 70 - 199 mg/dL [facility] Comment: Interpretive Data Fasting glucose >/= 126 mg/dl is diagnostic for diabetes. Fasting is defined as no caloric intake for at least 8 hours. Fasting glucose between 100 mg/dl to 125 mg/dl is diagnostic of prediabetes. In a patient with classic symptoms of hyperglycemia or hyperglycemic crisis, a random glucose >/= 200 mg/dl is diagnostic for diabetes. In the absence of unequivocal hyperglycemia, results should be confirmed by repeat testing. The classification and Diagnosis of Diabetes Diabetes Care 2021; 46: S19-S40. Current interpretive data was last revised 2022. Calcium 8.7 8.5 - 10.3 mg/dL [facility] Blood 08/29/2024 11:4 5 PM FLOUR BLENDER 08/29/2024 11:57 PM FLOUR BLENDER Dusty Bernal MD LAB BLOOD ORDERABLES Final Res ult Performing Organization Address [facility]/State/ZIP Co de Phone Number [facility] [address] [address] [place] [address] * (ABNORMAL) Lactate (08/29/2024 10:40 PM FLOUR BLENDER) Lactate 4.2(C) 0.7 - 2.0 mmol/L Comment:Critical result call ed to and read back by Shelli Ascencio on 08/29/2024 22:52:23 FLOUR BLENDER to Natali Hankins. Blood 08/29/2024 10:4 0 PM FLOUR BLENDER 08/29/2024 10:47 PM FLOUR BLENDER Dusty Bernal MD LAB BLOOD ORDERABLES Final Res ult Performing Organization Address City/[facility] Co de Phone Number AZAM XIE [address] [address] [facility] [place] [address] * (ABNORMAL) POCT glucose (08/29/2024 8:35 PM FLOUR BLENDER) Glucose, POC 205(H) 70 - 199 mg/dL Blood 08/29/2024 8:35 PM FLOUR BLENDER 08/29/2024 8:35 PM FLOUR BLENDER Dusty Bernal MD LAB POCT ORDERABLES - DEVICE F inal Result Performing Organization Address [facility] Co de Phone Number AZAM XIE [address] [address] [facility] [place] [address] * POCT glucose (08/29/2024 4:54 PM FLOUR BLENDER) Glucose, POC 176 70 - 199 mg/dL Blood 08/29/2024 4:54 PM FLOUR BLENDER 08/29/2024 4:54 PM FLOUR BLENDER Dusty Bernal MD LAB POCT ORDERABLES - DEVICE F inal Result Performing Organization Address [facility] Co de Phone Number AZAM XIE [address] [address] [place] [address] * POCT glucose (08/29/2024 3:22 PM FLOUR BLENDER) Glucose, POC 184 70 - 199 mg/dL Blood 08/29/2024 3:22 PM FLOUR BLENDER 08/29/2024 3:22 PM FLOUR BLENDER Dusty Bernal MD LAB POCT ORDERABLES - DEVICE F inal Result Performing Organization Address [facility] Co de Phone Number AZAM XIE [address] [address] [facility] [place] [address] * (ABNORMAL) Calcium, ionized, whole blood (08/29/2024 1:24 PM FLOUR BLENDER) Ca, ionized, bld 5.29(H) 4.50 - 5.10 mg/dL Blood 08/29/2024 1:24 PM FLOUR BLENDER 08/29/2024 1:26 PM FLOUR BLENDER Dahiana King SWITCHBOARD OPERATOR LAB BLOOD ORDERABLES F inal Result Performing Organization Address [facility]/ZIP Co de Phone Number AZAM XIE [address] [address] [place] [address] * eGFR (08/29/2024 1:24 PM FLOUR BLENDER) eGFR 88 >=60 mL/min/1. 73 m2 Comment: Interpretive Data Reference Interval Normal >/= 90 mL/min/1.73m2 Mildly decreased* 60 - 89 mL/min/1.73m2 Mildly to moderately decreased 45 - 59 mL/min/1.73m2 Moderately to severely decreased 30 - 44 mL/min/1.73m2 Severely decreased 15 - 29 mL/min/1.73m2 Kidney Failure < 15 mL/min/1.73m2 *Relative to young adult level Estimated glomerular filtration rate is determined by the 2020 CKD-EPI equation recommended by the National Kidney Foundation (A Unifying Approach to GFR Estimation: Recommendations of the NKF-ASK Task Force on Reassessing the Inclusion of Race in Diagnosing Kidney Disease, JASN 2020). The CKD-EPI equation should not be used for patients with unstable renal function and has not been validated in children and those over 70. Current interpretive data was last reviewed 2021. Blood 08/29/2024 1:24 PM FLOUR BLENDER 08/29/2024 1:28 PM FLOUR BLENDER Dahiana King SWITCHBOARD OPERATOR LAB BLOOD ORDERABLES F inal Result Performing Organization Address City/[facility]/ZIP Co de Phone Number AZAM XIE [address] [place] [address] * Magnesium (08/29/2024 1:24 PM FLOUR BLENDER) Pathologist [facility] Magnesium 2.3 1.4 - 2.5 mg/dL Blood 08/29/2024 1:24 PM FLOUR BLENDER 08/29/2024 1:27 PM FLOUR BLENDER Dahiana King SWITCHBOARD OPERATOR LAB BLOOD ORDERABLES F inal Result Performing Organization Address City/[facility]/ZIP Co de Phone Number AZAM XIE [address] [address] [place] [address] * (ABNORMAL) Renal function panel (08/29/2024 1:24 PM FLOUR BLENDER) Pathologist [facility] Sodium 143 135 - 145 mmol/L Potassium, pl 4.1 3.3 - 4.9 mmol/L [facility] Chloride 109 97 - 110 mmol/L [facility] CO2 18(L) 22 - 32 mmol/L [facility] Anion gap 16(H) 2 - 15 mmol/L [facility] BUN 20 6 - 25 mg/dL [facility] Creatinine 0.71 0.60 - 1.10 mg/dL [facility] Glucose 221(H) 70 - 199 mg/dL [facility] Comment: Interpretive Data Fasting glucose >/= 126 mg/dl is diagnostic for diabetes. Fasting is defined as no caloric intake for at least 8 hours. Fasting glucose between 100 mg/dl to 125 mg/dl is diagnostic of prediabetes. In a patient with classic symptoms of hyperglycemia or hyperglycemic crisis, a random glucose >/= 200 mg/dl is diagnostic for diabetes. In the absence of unequivocal hyperglycemia, results should be confirmed by repeat testing. The classification and Diagnosis of Diabetes Diabetes Care 2021; 46: S19-S40. Current interpretive data was last revised 2022. Calcium 9.9 8.5 - 10.3 mg/dL [facility] Phosphorus, pl 3.9 2.3 - 4.5 mg/dL [facility] Albumin 4.1 3.5 - 5.0 g/dL [facility] Blood 08/29/2024 1:24 PM FLOUR BLENDER 08/29/2024 1:27 PM FLOUR BLENDER Dahiana King SWITCHBOARD OPERATOR LAB BLOOD ORDERABLES F inal Result Performing Organization Address City/[facility]/ZIP Co de Phone Number AZAM XIE [address] [place] [address] * (ABNORMAL) POCT glucose (08/29/2024 12:13 PM FLOUR BLENDER) Glucose, POC 228(H) 70 - 199 mg/dL Blood 08/29/2024 12:1 3 PM FLOUR BLENDER 08/29/2024 12:13 PM FLOUR BLENDER Dusty Bernal MD LAB POCT ORDERABLES - DEVICE F inal Result Performing Organization Address [facility] Co de Phone Number AZAM [address] [place] [address] * (ABNORMAL) POCT glucose (08/29/2024 12:12 PM FLOUR BLENDER) Glucose, POC 231(H) 70 - 199 mg/dL Blood 08/29/2024 12:1 2 PM FLOUR BLENDER 08/29/2024 12:12 PM FLOUR BLENDER Dusty Bernal MD LAB POCT ORDERABLES - DEVICE F inal Result Performing Organization Address [facility] [facility] Co de Phone Number AZAM [address] [place] [address] * POCT glucose (08/29/2024 8:46 AM FLOUR BLENDER) Glucose, POC 100 70 - 199 mg/dL Blood 08/29/2024 8:46 AM FLOUR BLENDER 08/29/2024 8:46 AM FLOUR BLENDER Dusty Bernal MD LAB POCT ORDERABLES - DEVICE F inal Result Performing Organization Address [facility] Co de Phone Number AZAM [address] [place] [address] * ECG 12 lead (08/29/2024 7:44 AM FLOUR BLENDER) 08/29/2024 7:44 AM FLOUR BLENDER Narrative [facility] - 08/29/2024 6:36 PM FLOUR BLENDER Vent Rate: 71 bpm RR Interval: 842 msec ME Interval: 0 msec QRS Duration: 85 msec QT Interval: 399 msec QTC Interval: 421 msec P-R-T [place]: 0 - -4 - 2 degrees IMPRESSION: ATRIAL FIBRILLATION POSSIBLE RIGHT VENTRICULAR CONDUCTION DELAY [RSR (QR) IN V1/V2] ABNORMAL ECG Electronically Signed By: Dr. Mimi Murray [facility] us Dusty Bernal MD ECG ORDERABLES Final Result [facility] * Critical Care (08/29/2024 7:00 AM FLOUR BLENDER) Narrative Joel Moran MD - 08/29/2024 7:00 AM FLOUR BLENDER Dahiana King NP 08/29/2024 5:43 PM Critical Care Performed by: Dahiana King NP Authorized by: Dahiana King NP CRITICAL CARE: Team: DESTINY Shift: AM Level of Billing: Critical Care My time spent with this patient was 75 minutes: Critical Provider Statement: I have seen and examined the patient on this day of service. I have reviewed and confirmed the history, physical exam, laboratory and radiologic data as documented in the signed ICU note. I have reviewed and discussed my treatment plan with the ICU team and other medical/insurance healthcare consultant staff, making frequent assessments and decisions regarding this patient's complex medical care. Critical Care time was exclusive of time spent performing separately billed procedures, treating other patients, and teaching. This time was in addition to and separate from critical care provided by other practitioners in my group on this day of service. Critical Care was necessary to treat or prevent imminent or life-threatening deterioration of the following conditions: I spent time talking to this patient's surrogate decision maker to determine treatment plans due to patient's inability to participate in decision making, I spent time talking to this patient's relatives to obtain additional medical history due to patient's inabililty to provide history, I spent time documenting in the medical record, I spent time discussing the management of this critically ill patient with consultants and the medical staff and I spent time reviewing and interpreting data from bedside monitors, laboratory results, and imaging us Dahiana King NP IN CLINIC/BEDSIDE [facility]NER Final Result * POCT glucose (08/29/2024 6:22 AM FLOUR BLENDER) Glucose, POC 101 70 - 199 mg/dL Blood 08/29/2024 6:22 AM FLOUR BLENDER 08/29/2024 6:22 AM FLOUR BLENDER Dusty Bernal MD LAB POCT ORDERABLES - DEVICE F inal Result AZAM XIE [address] Department [place] [address] * XR Chest 1 View - Portable - in AM (08/29/2024 4:30 AM FLOUR BLENDER) Anatomical Region Laterality Modality Body, Chest N/A Computed Radiogr aphy 08/29/2024 8:29 AM FLOUR BLENDER Impressions 08/29/2024 8:29 AM FLOUR BLENDER Extubation, mild failure. No pneumothorax. Electronically signed by: Yimi Bond M.D. Narrative 08/29/2024 8:29 AM FLOUR BLENDER EXAMINATION: XR CHEST 1 VIEW DATE: 08/29/2024 3:30 AM HISTORY: Cardiac surgery follow-up FINDINGS:Compared with the study of the prior day, patient is extubated with removal of endotracheal and nasogastric tubes. Bilateral chest tubes and mediastinal drain and Trade-Jozef catheter remain in place. There is cardiomegaly with mild pulmonary vascular congestive changes. No pneumothorax Procedure Note Yimi Bond MD - 08/29/2024 EXAMINATION: XR CHEST 1 VIEW DATE: 08/29/2024 3:30 AM HISTORY: Cardiac surgery follow-up FINDINGS:Compared with the study of the prior day, patient is extubated with removal of endotracheal and nasogastric tubes. Bilateral chest tubes and mediastinal drain and Trade-Jozef catheter remain in place. There is cardiomegaly with mild pulmonary vascular congestive changes. No pneumothorax IMPRESSION: Extubation, mild failure. No pneumothorax. Electronically signed by: Yimi Bond M.D. Dusty Bernal MD IMG XR PROCEDURES Final Result * POCT glucose (08/29/2024 4:17 AM FLOUR BLENDER) Pathologist [facility] Glucose, POC 108 70 - 199 mg/dL Blood 08/29/2024 4:17 AM FLOUR BLENDER 08/29/2024 4:17 AM FLOUR BLENDER Dusty Bernal MD LAB POCT ORDERABLES - DEVICE F inal Result Performing Organization Address [facility] Co de Phone Number AZAM [address] [facility] [place], [place] [id number] * Oxyhemoglobin, central venous (08/29/2024 4:11 AM FLOUR BLENDER) [facility] Oxyhemoglobin, CV 96.2 % Comment: Interpretive Data No reference range established. Current interpretive data was last revised 2019. Blood 08/29/2024 4:11 AM FLOUR BLENDER 08/29/2024 4:30 AM FLOUR BLENDER Dusty Bernal MD LAB BLOOD ORDERABLES Final Res ult Performing Organization Address [facility] Co de Phone Number AZAM [address] [facility] [place], [place] [id number] * (ABNORMAL) Lactate (08/29/2024 4:11 AM FLOUR BLENDER) [facility] Lactate 2.2(H) 0.7 - 2.0 mmol/L Blood 08/29/2024 4:11 AM FLOUR BLENDER 08/29/2024 4:30 AM FLOUR BLENDER Dusty Bernal MD LAB BLOOD ORDERABLES Final Res ult Performing Organization Address [facility] Co de Phone Number AZAM [address] [facility] [place], [place] [id number] * eGFR (08/29/2024 4:11 AM FLOUR BLENDER) Pathologist [facility] eGFR >90 >=60 mL/min/1. 73 m2 Comment: Interpretive Data Reference Interval Normal >/= 90 mL/min/1.73m2 Mildly decreased* 60 - 89 mL/min/1.73m2 Mildly to moderately decreased 45 - 59 mL/min/1.73m2 Moderately to severely decreased 30 - 44 mL/min/1.73m2 Severely decreased 15 - 29 mL/min/1.73m2 Kidney Failure < 15 mL/min/1.73m2 *Relative to young adult level Estimated glomerular filtration rate is determined by the 2020 CKD-EPI equation recommended by the National Kidney Foundation (A Unifying Approach to GFR Estimation: Recommendations of the NKF-ASK Task Force on Reassessing the Inclusion of Race in Diagnosing Kidney Disease, JASN 2020). The CKD-EPI equation should not be used for patients with unstable renal function and has not been validated in children and those over 70. Current interpretive data was last reviewed 2021. Blood 08/29/2024 4:11 AM FLOUR BLENDER 08/29/2024 4:30 AM FLOUR BLENDER us Pily Escudero NP LAB BLOOD ORDERABLES Fin al Result [facility] [address] [place] [address] * (ABNORMAL) Differential, auto (08/29/2024 4:11 AM FLOUR BLENDER) Neutrophil abs 9.5(H) 1.5 - 6.5 K/cumm Imm gran abs 0.1 0.0 - 0.1 K/cumm [facility] Lymphocyte abs 1.0 0.8 - 3.3 K/cumm [facility] Monocyte abs 0.9(H) 0.2 - 0.8 K/cumm [facility] Eosinophil abs 0.0 0.0 - 0.5 K/cumm [facility] Basophil abs 0.0 0.0 - 0.1 K/cumm [facility] Neutrophil pct 82.6 % [facility] Comment: Interpretive Data Percent cell count reference ranges are not reported, since discordance with absolute values may lead to misinterpretation of CBC data. Current Interpretive Data was last revised on 2017. Imm gran pct 0.4 % [facility] Comment: Interpretive Data Percent cell count reference ranges are not reported, since discordance with absolute values may lead to misinterpretation of CBC data. Current Interpretive Data was last revised on 2017. Lymphocyte pct 8.8 % [facility] Comment: Interpretive Data Percent cell count reference ranges are not reported, since discordance with absolute values may lead to misinterpretation of CBC data. Current Interpretive Data was last revised on 2017. Monocyte pct 8.0 % [facility] Comment: Interpretive Data Percent cell count reference ranges are not reported, since discordance with absolute values may lead to misinterpretation of CBC data. Current Interpretive Data was last revised on 2017. Eosinophil pct 0.0 % [facility] Comment: Interpretive Data Percent cell count reference ranges are not reported, since discordance with absolute values may lead to misinterpretation of CBC data. Current Interpretive Data was last revised on 2017. Basophil pct 0.2 % [facility] Comment: Interpretive Data Percent cell count reference ranges are not reported, since discordance with absolute values may lead to misinterpretation of CBC data. Current Interpretive Data was last revised on 2017. Blood 08/29/2024 4:1 1 AM FLOUR BLENDER 08/29/2024 4:30 AM FLOUR BLENDER Dusty Bernal MD LAB BLOOD ORDERABLES Final Res ult Performing Organization Address City/[facility]/ZIP Co de Phone Number AZAM [address] [address] Department [facility] [place], [place] [phone] * Thyroid Function [place] (08/29/2024 4:11 AM FLOUR BLENDER) TSH 1.05 0.30 - 4.20 mcIUnit/mL Blood 08/29/2024 4:11 AM FLOUR BLENDER 08/29/2024 4:30 AM FLOUR BLENDER Pily Escudero SWITCHBOARD OPERATOR LAB BLOOD ORDERABLES Fin al Result AZAM [address] [place] [address] * (ABNORMAL) CBC with auto differential (08/29/2024 4:11 AM FLOUR BLENDER) WBC 11.5(H) 3.8 - 9.9 K/cumm Hgb 8.8(L) 11.9 - 15.5 g/dL [facility] Hct 26.6(L) 35.6 - 45.5 % [facility] Plt 91(L) 150 - 400 K/cumm [facility] MPV 12.4(H) 9.1 - 12.3 fL [facility] RBC 3.00(L) 3.90 - 5.20 M/cumm [facility] MCV 88.7 81.3 - 96.4 fL [facility] MCH 29.3 27.1 - 33.3 pg [facility] MCHC 33.1 32.3 - 35.7 g/dL [facility] RDW CV 14.3 11.1 - 14.9 % [facility] RDW SD 46.1 35.7 - 48.1 fL [facility] NRBC abs 0.00 0.00 - 0.01 K/cumm [facility] Blood 08/29/2024 4:11 AM FLOUR BLENDER 08/29/2024 4:30 AM FLOUR BLENDER Dusty Bernal MD LAB BLOOD ORDERABLES Final Res ult Performing Organization Address City/[facility] Co de Phone Number AZAM [address] [address] [facility] [place], [place] [phone] * (ABNORMAL) Magnesium (08/29/2024 4:11 AM FLOUR BLENDER) Magnesium 2.7(H) 1.4 - 2.5 mg/dL Blood 08/29/2024 4:11 AM FLOUR BLENDER 08/29/2024 4:30 AM FLOUR BLENDER Pily Escudero NP LAB BLOOD ORDERABLES Fin al Result Performing Organization Address City/[facility]/ZIP Co de Phone Number [facility] [address] [address] [place] [address] * (ABNORMAL) Renal function panel (08/29/2024 4:11 AM FLOUR BLENDER) Sodium 149(H) 135 - 145 mmol/L Potassium, pl 4.0 3.3 - 4.9 mmol/L [facility] Chloride 116(H) 97 - 110 mmol/L [facility] CO2 21(L) 22 - 32 mmol/L [facility] Anion gap 12 2 - 15 mmol/L [facility] BUN 16 6 - 25 mg/dL [facility] Creatinine 0.52(L) 0.60 - 1.10 mg/dL [facility] Glucose 107 70 - 199 mg/dL [facility] Comment: Interpretive Data Fasting glucose >/= 126 mg/dl is diagnostic for diabetes. Fasting is defined as no caloric intake for at least 8 hours. Fasting glucose between 100 mg/dl to 125 mg/dl is diagnostic of prediabetes. In a patient with classic symptoms of hyperglycemia or hyperglycemic crisis, a random glucose >/= 200 mg/dl is diagnostic for diabetes. In the absence of unequivocal hyperglycemia, results should be confirmed by repeat testing. The classification and Diagnosis of Diabetes Diabetes Care 2021; 46: S19-S40. Current interpretive data was last revised 2022. Calcium 8.4(L) 8.5 - 10.3 mg/dL [facility] Phosphorus, pl 2.3 2.3 - 4.5 mg/dL [facility] Albumin 4.0 3.5 - 5.0 g/dL [facility] Blood 08/29/2024 4:11 AM FLOUR BLENDER 08/29/2024 4:30 AM FLOUR BLENDER Pily Escudero SWITCHBOARD OPERATOR LAB BLOOD ORDERABLES Fin al Result [facility] [address] [address] [place] [address] * POCT glucose (08/29/2024 2:59 AM FLOUR BLENDER) Glucose, POC 102 70 - 199 mg/dL Blood 08/29/2024 2:59 AM FLOUR BLENDER 08/29/2024 2:59 AM FLOUR BLENDER Dusty Bernal MD LAB POCT ORDERABLES - DEVICE F inal Result Performing Organization Address [facility] Co de Phone Number AZAM XIE [address] [facility] [place] [address] * POCT glucose (08/29/2024 1:57 AM FLOUR BLENDER) Glucose, POC 109 70 - 199 mg/dL Blood 08/29/2024 1:57 AM FLOUR BLENDER 08/29/2024 1:57 AM FLOUR BLENDER Result [facility] Dusty Bernal MD LAB POCT ORDERABLES - DEVICE F inal Result Performing Organization Address [facility] Co de Phone Number AZAM XIE [address] [address] [facility] [place] [address] * POCT glucose (08/29/2024 12:32 AM FLOUR BLENDER) Glucose, POC 117 70 - 199 mg/dL Blood 08/29/2024 12:3 2 AM FLOUR BLENDER 08/29/2024 12:32 AM FLOUR BLENDER Result [facility] Dusty Bernal MD LAB POCT ORDERABLES - DEVICE F inal Result Performing Organization Address [facility] Co de Phone Number AZAM XIE [address] [address] [facility] [place] [address] * Potassium, whole blood (08/29/2024 12:28 AM FLOUR BLENDER) Potassium, bld 4.1 3.3 - 4.9 mmol/L Comment: Interpretive Data This method is not able to assess for hemolysis, which may falsely increase potassium concentrations. If further testing is needed to evaluate this result, consider in-laboratory plasma potassium. Current Interpretive Data was last revised on 2022. Blood 08/29/2024 12:2 8 AM FLOUR BLENDER 08/29/2024 12:37 AM FLOUR BLENDER Result [facility] Dusty Bernal MD LAB BLOOD ORDERABLES Final Res ult Performing Organization Address City/[facility]/ZIP Co de Phone Number AZAM XIE [address] [address] [facility] [place] [address] * Calcium, ionized, whole blood (08/29/2024 12:28 AM FLOUR BLENDER) Ca, ionized, bld 4.72 4.50 - 5.10 mg/dL Blood 08/29/2024 12:2 8 AM FLOUR BLENDER 08/29/2024 12:37 AM FLOUR BLENDER Dusty Bernal MD LAB BLOOD ORDERABLES Final Res ult Performing Organization Address [facility] de Phone Number AZAM XIE [address] [address] [facility] [place] [address] * (ABNORMAL) Blood gas, arterial (08/29/2024 12:28 AM FLOUR BLENDER) pH, Art 7.39 7.35 - 7.45 PCO2, Arterial 36 35 - 45 mmHg [facility] PO2, Arterial 81(L) 83 - 108 mmHg [facility] HCO3 Art (Calculated) 22 20 - 30 mmol/L [facility] BE, art -3 mmol/L [facility] Comment: Interpretive Data No Reference Range Established Current Interpretive Data was last revised on 2017 O2 Sat Art (Measured) 96(H) 90 - 95 % [facility] Blood 08/29/2024 12:2 8 AM FLOUR BLENDER 08/29/2024 12:37 AM FLOUR BLENDER Dusty Bernal MD LAB BLOOD ORDERABLES Final Res ult Performing Organization Address [facility] Co de Phone Number AVAVLAD XIE [address] [address] [facility] [place] [address] * POCT glucose (08/28/2024 11:43 PM FLOUR BLENDER) Glucose, POC 103 70 - 199 mg/dL Blood 08/28/2024 11:4 3 PM FLOUR BLENDER 08/28/2024 11:43 PM FLOUR BLENDER Dusty Bernal MD LAB POCT ORDERABLES - DEVICE F inal Result Performing Organization Address [facility] de Phone Number AZAM XIE [address] [address] [facility] [place] [address] * (ABNORMAL) Lactate (08/28/2024 11:02 PM FLOUR BLENDER) Lactate 4.2(C) 0.7 - 2.0 mmol/L Comment:Critical result call ed to and read back by Bradley Lu (_) on 08/28/2024 23:15:23 CST_ to Sara Gates_. Blood 08/28/2024 11:0 2 PM FLOUR BLENDER 08/28/2024 11:03 PM FLOUR BLENDER Dusty Bernal MD LAB BLOOD ORDERABLES Final Res ult Performing Organization Address [facility] de Phone Number AZAM XIE [address] [address] [facility] [place] [address] * POCT glucose (08/28/2024 10:43 PM FLOUR BLENDER) Glucose, POC 138 70 - 199 mg/dL Blood 08/28/2024 10:4 3 PM FLOUR BLENDER 08/28/2024 10:43 PM FLOUR BLENDER Dusty Bernal MD LAB POCT ORDERABLES - DEVICE F inal Result Performing Organization Address [facility] [place] [address] [address] [facility] [place] [address] * Potassium, whole blood (08/28/2024 9:44 PM FLOUR BLENDER) Potassium, bld 3.5 3.3 - 4.9 mmol/L Comment: Interpretive Data This method is not able to assess for hemolysis, which may falsely increase potassium concentrations. If further testing is needed to evaluate this result, consider in-laboratory plasma potassium. Current Interpretive Data was last revised on 2022. Blood 08/28/2024 9:44 PM FLOUR BLENDER 08/28/2024 9:48 PM FLOUR BLENDER Dusty Bernal MD LAB BLOOD ORDERABLES Final Res ult Performing Organization Address [facility] Co de Phone Number [facility] [address] [address] [facility] [place] [address] * (ABNORMAL) Blood gas, arterial (08/28/2024 9:44 PM FLOUR BLENDER) pH, Art 7.40 7.35 - 7.45 PCO2, Arterial 31(L) 35 - 45 mmHg [facility] PO2, Arterial 226(H) 83 - 108 mmHg [facility] HCO3 Art (Calculated) 21 20 - 30 mmol/L [facility] BE, art -5 mmol/L [facility] Comment: Interpretive Data No Reference Range Established Current Interpretive Data was last revised on 2017 O2 Sat Art (Measured) 99(H) 90 - 95 % [facility] Blood 08/28/2024 9:44 PM FLOUR BLENDER 08/28/2024 9:48 PM FLOUR BLENDER Dusty Bernal MD LAB BLOOD ORDERABLES Final Res ult Performing Organization Address [facility] de Phone Number [facility] [address] [address] [facility] [place] [address] * POCT glucose (08/28/2024 9:41 PM FLOUR BLENDER) Glucose, POC 158 70 - 199 mg/dL Blood 08/28/2024 9:41 PM FLOUR BLENDER 08/28/2024 9:41 PM FLOUR BLENDER Dusty Bernal MD LAB POCT ORDERABLES - DEVICE F inal Result Performing Organization Address [facility] Co de Phone Number [facility] [address] [address] [facility] [place] [address] * POCT glucose (08/28/2024 8:35 PM FLOUR BLENDER) Glucose, POC 188 70 - 199 mg/dL Blood 08/28/2024 8:35 PM FLOUR BLENDER 08/28/2024 8:35 PM FLOUR BLENDER Dusty Bernal MD LAB POCT ORDERABLES - DEVICE F inal Result Performing Organization Address [facility] de Phone Number AZAM XIE [address] [address] [facility] [place] [address] * POCT glucose (08/28/2024 7:32 PM FLOUR BLENDER) Glucose, POC 186 70 - 199 mg/dL Blood 08/28/2024 7:32 PM FLOUR BLENDER 08/28/2024 7:32 PM FLOUR BLENDER Dusty Bernal MD LAB POCT ORDERABLES - DEVICE F inal Result Performing Organization Address [facility] de Phone Number AZAM XIE [address] [address] [facility] [place] [address] * Critical Care (08/28/2024 7:29 PM FLOUR BLENDER) Narrative Ammy Caba MD - 08/28/2024 7:29 PM FLOUR BLENDER Stephan Jackson PA 08/29/2024 2:50 AM Critical Care Performed by: Stephan Jackson PA Authorized by: Stephan Jackson PA CRITICAL CARE: Team: DESTINY Shift: PM Level of Billing: Critical Care My time spent with this patient was 90 minutes: Critical Provider Statement: I have seen and examined the patient on this day of service. I have reviewed and confirmed the history, physical exam, laboratory and radiologic data as documented in the signed ICU note. I have reviewed and discussed my treatment plan with the ICU team and other medical/insurance healthcare consultant staff, making frequent assessments and decisions regarding this patient's complex medical care. Critical Care time was exclusive of time spent performing separately billed procedures, treating other patients, and teaching. This time was in addition to and separate from critical care provided by other practitioners in my group on this day of service. Critical Care was necessary to treat or prevent imminent or life-threatening deterioration of the following conditions: I spent time reviewing and interpreting data from bedside monitors, laboratory results, and imaging, I spent time discussing the management of this critically ill patient with consultants and the medical staff and I spent time documenting in the medical record Stephan [place] IN CLINIC/BEDSIDE ORDERABLES Fin al Result * POCT glucose (08/28/2024 6:31 PM FLOUR BLENDER) Glucose, POC 150 70 - 199 mg/dL Blood 08/28/2024 6:31 PM FLOUR BLENDER 08/28/2024 6:31 PM FLOUR BLENDER Dusty Bernal MD LAB POCT ORDERABLES - DEVICE F inal Result AZAM [address] [address] Department [facility] [place] [address] * Calcium, ionized, whole blood (08/28/2024 6:30 PM FLOUR BLENDER) Pathologist [facility] Ca, ionized, bld 4.57 4.50 - 5.10 mg/dL Blood 08/28/2024 6:30 PM FLOUR BLENDER 08/28/2024 6:31 PM FLOUR BLENDER Dusty Bernal MD LAB BLOOD ORDERABLES Final Res ult Performing Organization Address City/[facility]/ZIP Co de Phone Number [facility] [address] [address] Department [facility] [place] [address] * eGFR (08/28/2024 6:30 PM FLOUR BLENDER) eGFR >90 >=60 mL/min/1. 73 m2 Comment: Interpretive Data Reference Interval Normal >/= 90 mL/min/1.73m2 Mildly decreased* 60 - 89 mL/min/1.73m2 Mildly to moderately decreased 45 - 59 mL/min/1.73m2 Moderately to severely decreased 30 - 44 mL/min/1.73m2 Severely decreased 15 - 29 mL/min/1.73m2 Kidney Failure < 15 mL/min/1.73m2 *Relative to young adult level Estimated glomerular filtration rate is determined by the 2020 CKD-EPI equation recommended by the National Kidney Foundation (A Unifying Approach to GFR Estimation: Recommendations of the NKF-ASK Task Force on Reassessing the Inclusion of Race in Diagnosing Kidney Disease, JASN 202). The CKD-EPI equation should not be used for patients with unstable renal function and has not been validated in children and those over 70. Current interpretive data was last reviewed 2021. Blood 08/28/2024 6:30 PM FLOUR BLENDER 08/28/2024 6:45 PM FLOUR BLENDER Dusty Bernal MD LAB BLOOD ORDERABLES Final Res ult AZAM [address] [address] [place] [address] * (ABNORMAL) CBC without differential (08/28/2024 6:30 PM FLOUR BLENDER) WBC 12.7(H) 3.8 - 9.9 K/cumm Hgb 9.5(L) 11.9 - 15.5 g/dL [facility] Hct 29.2(L) 35.6 - 45.5 % [facility] Plt 81(L) 150 - 400 K/cumm [facility] MPV 11.5 9.1 - 12.3 fL [facility] RBC 3.27(L) 3.90 - 5.20 M/cumm [facility] MCV 89.3 81.3 - 96.4 fL [facility] MCH 29.1 27.1 - 33.3 pg [facility] MCHC 32.5 32.3 - 35.7 g/dL [facility] RDW CV 13.7 11.1 - 14.9 % [facility] RDW SD 45.4 35.7 - 48.1 fL [facility] NRBC abs 0.00 0.00 - 0.01 K/cumm [facility] Blood 08/28/2024 6:30 PM FLOUR BLENDER 08/28/2024 6:35 PM FLOUR BLENDER Dusty Bernal MD LAB BLOOD ORDERABLES Final Res ult Performing Organization Address [facility] de Phone Number AZAM XIE [id number] [place] [address] * (ABNORMAL) Blood gas, arterial (08/28/2024 6:30 PM FLOUR BLENDER) pH, Art 7.40 7.35 - 7.45 PCO2, Arterial 34(L) 35 - 45 mmHg [facility] PO2, Arterial 138(H) 83 - 108 mmHg [facility] HCO3 Art (Calculated) 21 20 - 30 mmol/L [facility] BE, art -4 mmol/L [facility] Comment: Interpretive Data No Reference Range Established Current Interpretive Data was last revised on 2017 O2 Sat Art (Measured) 98(H) 90 - 95 % [facility] Blood 08/28/2024 6:30 PM FLOUR BLENDER 08/28/2024 6:31 PM FLOUR BLENDER Result [facility] Dusty Bernal MD LAB BLOOD ORDERABLES Final Res [facility] Performing Organization Address [facility] de Phone Number AZAM XIE [address] Department [place] [address] * (ABNORMAL) Basic metabolic panel (08/28/2024 6:30 PM FLOUR BLENDER) Pathologist [facility] Sodium 145 135 - 145 mmol/L Potassium, pl 4.3 3.3 - 4.9 mmol/L [facility] Chloride 114(H) 97 - 110 mmol/L [facility] CO2 18(L) 22 - 32 mmol/L [facility] Anion gap 13 2 - 15 mmol/L [facility] BUN 20 6 - 25 mg/dL [facility] Creatinine 0.51(L) 0.60 - 1.10 mg/dL [facility] Comment:Icteric sample, test results may be affected. Glucose 232(H) 70 - 199 mg/dL [facility] Comment: Interpretive Data Fasting glucose >/= 126 mg/dl is diagnostic for diabetes. Fasting is defined as no caloric intake for at least 8 hours. Fasting glucose between 100 mg/dl to 125 mg/dl is diagnostic of prediabetes. In a patient with classic symptoms of hyperglycemia or hyperglycemic crisis, a random glucose >/= 200 mg/dl is diagnostic for diabetes. In the absence of unequivocal hyperglycemia, results should be confirmed by repeat testing. The classification and Diagnosis of Diabetes Diabetes Care 2021; 46: S19-S40. Current interpretive data was last revised 2022. Calcium 7.8(L) 8.5 - 10.3 mg/dL AZAM Blood 08/28/2024 6:30 PM FLOUR BLENDER 08/28/2024 6:31 PM FLOUR BLENDER Dusty Bernal MD LAB BLOOD ORDERABLES Final Res ult Performing Organization Address [facility] Co de Phone Number [facility] [address] [facility] [place] [address] * POCT glucose (08/28/2024 6:00 PM FLOUR BLENDER) Glucose, POC 161 70 - 199 mg/dL Blood 08/28/2024 6:00 PM FLOUR BLENDER 08/28/2024 6:00 PM FLOUR BLENDER Dusty Bernal MD LAB POCT ORDERABLES - DEVICE F inal Result Performing Organization Address [facility] Co de Phone Number [facility] [address] [place] [address] * POCT glucose (08/28/2024 4:59 PM FLOUR BLENDER) Glucose, POC 137 70 - 199 mg/dL Blood 08/28/2024 4:59 PM FLOUR BLENDER 08/28/2024 4:59 PM FLOUR BLENDER Dusty Bernal MD LAB POCT ORDERABLES - DEVICE F inal Result Performing Organization Address [facility] Co de Phone Number [facility] [address] [address] [facility] [place] [address] * XR Chest 1 View (08/28/2024 4:29 PM FLOUR BLENDER) Anatomical Region Laterality Modality Body, Chest N/A Computed Radiogr aphy 08/28/2024 4:43 PM FLOUR BLENDER Impressions 08/28/2024 4:43 PM FLOUR BLENDER 1. 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 2. Tubes and lines in place as described above. 3. The Trade-Jozef catheter doubles back on itself in the pulmonary outflow tract. 4. Hypoinflated lungs. Electronically signed by: Marv Fisher M.D. Narrative 08/28/2024 4:43 PM FLOUR BLENDER EXAM: XR CHEST 1 VIEW DATE: 08/28/2024 4:05 PM CLINICAL HISTORY: Trade-Jozef catheter retracted 4 cm. COMPARISON: Previous study from 08/28/2024. FINDINGS: Portable AP radiograph of the chest was obtained. There are postsurgical changes from a median sternotomy and mitral valve replacement. Endotracheal tube, right jugular Trade-Jozef catheter, left-sided chest tube and NG tube remain in place. The tip of the endotracheal tube is in good position. The Trade-Jozef catheter doubles back on itself in the pulmonary outflow tract. Previously, the catheter doubled back on itself in the proximal right pulmonary artery. The heart size is normal. The lungs are hypoinflated. No evidence of a pneumothorax or pleural effusion. Procedure Note Marv Fisher MD - 08/28/2024 EXAM: XR CHEST 1 VIEW DATE: 08/28/2024 4:05 PM CLINICAL HISTORY: Trade-Jozef catheter retracted 4 cm. COMPARISON: Previous study from 08/28/2024. FINDINGS: Portable AP radiograph of the chest was obtained. There are postsurgical changes from a median sternotomy and mitral valve replacement. Endotracheal tube, right jugular Trade-Jozef catheter, left-sided chest tube and NG tube remain in place. The tip of the endotracheal tube is in good position. The Trade-Jozef catheter doubles back on itself in the pulmonary outflow tract. Previously, the catheter doubled back on itself in the proximal right pulmonary artery. The heart size is normal. The lungs are hypoinflated. No evidence of a pneumothorax or pleural effusion. IMPRESSION: 1. 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 2. Tubes and lines in place as described above. 3. The Trade-Jozef catheter doubles back on itself in the pulmonary outflow tract. 4. Hypoinflated lungs. Electronically signed by: Marv Fisher M.D. Pily Escudero NP IMG XR PROCEDURES Final Result * Critical Care (08/28/2024 4:24 PM FLOUR BLENDER) Narrative Joel Moran MD - 08/28/2024 4:24 PM FLOUR BLENDER Pily Escudero NP 08/28/2024 4:24 PM Critical Care Performed by: Pily Escudero NP Authorized by: Pily Escudero NP CRITICAL CARE: Team: RONALD Shift: AM Level of Billing: Critical Care My time spent with this patient was 100 minutes: Critical Provider Statement: I have seen and examined the patient on this day of service. I have reviewed and confirmed the history, physical exam, laboratory and radiologic data as documented in the signed ICU note. I have reviewed and discussed my treatment plan with the ICU team and other medical/insurance healthcare consultant staff, making frequent assessments and decisions regarding this patient's complex medical care. Critical Care time was exclusive of time spent performing separately billed procedures, treating other patients, and teaching. This time was in addition to and separate from critical care provided by other practitioners in my group on this day of service. Critical Care was necessary to treat or prevent imminent or life-threatening deterioration of the following conditions: I spent time reviewing and interpreting data from bedside monitors, laboratory results, and imaging, I spent time discussing the management of this critically ill patient with consultants and the medical staff and I spent time documenting in the medical record Pily Escudero NP IN CLINIC/BEDSIDE ORDERA BLES Final Result * POCT glucose (08/28/2024 4:04 PM FLOUR BLENDER) Glucose, POC 116 70 - 199 mg/dL Blood 08/28/2024 4:04 PM FLOUR BLENDER 08/28/2024 4:04 PM FLOUR BLENDER Dusty Bernal MD LAB POCT ORDERABLES - DEVICE F inal Result AZAM [address] Department [place] [address] * XR Chest 1 View - Portable (08/28/2024 3:37 PM FLOUR BLENDER) Anatomical Region Laterality Modality Body, Chest N/A Computed Radiogr aphy 08/28/2024 3:53 PM FLOUR BLENDER Impressions 08/28/2024 3:53 PM FLOUR BLENDER FINDINGS/IMPRESSION: Endotracheal tube terminates 4.1 cm from the autumn. Enteric tube is appropriately positioned. Pulmonary catheter catheter, mediastinal drain, and bilateral thoracostomy tubes are appropriately positioned. No pneumothorax or pleural effusion. Cardiomediastinal silhouette within normal limits. Poststernotomy changes are noted. No acute osseous abnormality. Electronically signed by: Deon Moreira II, D.O. Narrative 08/28/2024 3:53 PM FLOUR BLENDER EXAMINATION: XR CHEST 1 VIEW DATE: 08/28/2024 3:25 PM INDICATION: Cardiac surgery. COMPARISON: 07/31/2024. Procedure Note Deon Moreira II, DO - 08/28/2024 EXAMINATION: XR CHEST 1 VIEW DATE: 08/28/2024 3:25 PM INDICATION: Cardiac surgery. COMPARISON: 07/31/2024. IMPRESSION: FINDINGS/IMPRESSION: Endotracheal tube terminates 4.1 cm from the autumn. Enteric tube is appropriately positioned. Pulmonary catheter catheter, mediastinal drain, and bilateral thoracostomy tubes are appropriately positioned. No pneumothorax or pleural effusion. Cardiomediastinal silhouette within normal limits. Poststernotomy changes are noted. No acute osseous abnormality. Electronically signed by: Deon Moreira II, D.O. Dusty Bernla MD IMG XR PROCEDURES Final Result * POCT glucose (08/28/2024 3:36 PM FLOUR BLENDER) Glucose, POC 124 70 - 199 mg/dL Blood 08/28/2024 3:36 PM FLOUR BLENDER 08/28/2024 3:36 PM FLOUR BLENDER us Dusty Bernal MD LAB POCT ORDERABLES - DEVICE F inal Result Performing Organization Address [facility] Co de Phone Number AZAM XIE [address] [address] Department [facility] [place] [address] * Calcium, ionized, whole blood (08/28/2024 3:24 PM FLOUR BLENDER) Ca, ionized, bld 5.05 4.50 - 5.10 mg/dL Blood 08/28/2024 3:24 PM FLOUR BLENDER 08/28/2024 3:53 PM FLOUR BLENDER Dusty Bernal MD LAB BLOOD ORDERABLES Final Res ult Performing Organization Address [facility] de Phone Number AZAM [address] [place] [address] * eGFR (08/28/2024 3:24 PM FLOUR BLENDER) eGFR >90 >=60 mL/min/1. 73 m2 Comment: Interpretive Data Reference Interval Normal >/= 90 mL/min/1.73m2 Mildly decreased* 60 - 89 mL/min/1.73m2 Mildly to moderately decreased 45 - 59 mL/min/1.73m2 Moderately to severely decreased 30 - 44 mL/min/1.73m2 Severely decreased 15 - 29 mL/min/1.73m2 Kidney Failure < 15 mL/min/1.73m2 *Relative to young adult level Estimated glomerular filtration rate is determined by the 2020 CKD-EPI equation recommended by the National Kidney [employer] (A Unifying Approach to GFR Estimation: Recommendations of the NKF-ASK Task Force on Reassessing the Inclusion of Race in Diagnosing Kidney Disease, JASN 2020). The CKD-EPI equation should not be used for patients with unstable renal function and has not been validated in children and those over 70. Current interpretive data was last reviewed 2021. Blood 08/28/2024 3:24 PM FLOUR BLENDER 08/28/2024 3:55 PM FLOUR BLENDER Dusty Bernal MD LAB BLOOD ORDERABLES Final Res ult Performing Organization Address [facility] Co de Phone Number AZAM XIE [address] [address] [place], [place] [id number] * aPTT (08/28/2024 3:24 PM FLOUR BLENDER) aPTT 31 28 - 38 sec Comment: Interpretive Data Heparin therapeutic range: 66.0 - 100.0 seconds. Range based on correlation with therapeutic heparin activity range of 0.3 - 0.7 Units/mL. Current interpretive data was last revised on 2023. Blood 08/28/2024 3:24 PM FLOUR BLENDER 08/28/2024 3:53 PM FLOUR BLENDER Dusty Bernal MD LAB BLOOD ORDERABLES Final Res ult Performing Organization Address [facility] Co de Phone Number AZAM XIE [address] [place] [address] * (ABNORMAL) Protime-INR (08/28/2024 3:24 PM FLOUR BLENDER) PT 16.5(H) 9.7 - 13.0 sec INR 1.51(H) 0.90 - 1.20 AZAM XIE Comment: Interpretive data Oral anticoagulant therapeutic ranges: Venous thromboembolism prophylaxis or treatment: 2.0-3.0 CARDIOLOGY Standard range: 2.0-3.0 High-intensity range: 2.5-3.5 Refer to indication-specific guidelines for appropriate target ranges for prosthetic heart valve replacement. Current interpretive data was last revised on 2019. Blood 08/28/2024 3:24 PM FLOUR BLENDER 08/28/2024 3:53 PM FLOUR BLENDER Dusty Bernal MD LAB BLOOD ORDERABLES Final Res ult Performing Organization Address [facility]/ZIP Co de Phone Number AZAM XIE [address] [address] [facility] [place], [place] [id number] * (ABNORMAL) CBC without differential (08/28/2024 3:24 PM FLOUR BLENDER) WBC 21.7(H) 3.8 - 9.9 K/cumm Hgb 10.9(L) 11.9 - 15.5 g/dL [facility] Hct 33.5(L) 35.6 - 45.5 % [facility] Plt 95(L) 150 - 400 K/cumm [facility] MPV 12.4(H) 9.1 - 12.3 fL [facility] RBC 3.73(L) 3.90 - 5.20 M/cumm [facility] MCV 89.8 81.3 - 96.4 fL [facility] MCH 29.2 27.1 - 33.3 pg [facility] MCHC 32.5 32.3 - 35.7 g/dL [facility] RDW CV 13.8 11.1 - 14.9 % [facility] RDW SD 45.1 35.7 - 48.1 fL [facility] NRBC abs 0.00 0.00 - 0.01 K/cumm [facility] CH Blood 08/28/2024 3:24 PM FLOUR BLENDER 08/28/2024 3:53 PM FLOUR BLENDER Dusty Bernal MD LAB BLOOD ORDERABLES Final Res ult Performing Organization Address City/[facility]/ZIP Co de Phone Number AZAM XIE [address] [address] Department [facility] [place] [address] * Phosphorus (08/28/2024 3:24 PM FLOUR BLENDER) Phosphorus, pl 3.5 2.3 - 4.5 mg/dL Blood 08/28/2024 3:24 PM FLOUR BLENDER 08/28/2024 3:53 PM FLOUR BLENDER Pily Escudero NP LAB BLOOD ORDERABLES Fin al Result Performing Organization Address City/[facility] Co de Phone Number AZAM [address] [address] Department of [employer] [place], [place] [id number] * (ABNORMAL) Magnesium (08/28/2024 3:24 PM FLOUR BLENDER) Magnesium 3.0(H) 1.4 - 2.5 mg/dL Blood 08/28/2024 3:24 PM FLOUR BLENDER 08/28/2024 3:53 PM FLOUR BLENDER Dusty Bernal MD LAB BLOOD ORDERABLES Final Res t Performing Organization Address [facility] de Phone Number AZAM XIE [address] [address] [facility] [place] [address] * (ABNORMAL) Blood gas, arterial (08/28/2024 3:24 PM FLOUR BLENDER) pH, Art 7.36 7.35 - 7.45 PCO2, Arterial 38 35 - 45 mmHg [facility] PO2, Arterial 123(H) 83 - 108 mmHg [facility] HCO3 Art (Calculated) 21 20 - 30 mmol/L [facility] BE, art -4 mmol/L [facility] Comment: Interpretive Data No Reference Range Established Current Interpretive Data was last revised on 2017 O2 Sat Art (Measured) 98(H) 90 - 95 % [facility] Blood 08/28/2024 3:24 PM FLOUR BLENDER 08/28/2024 3:53 PM FLOUR BLENDER Dusty Bernal MD LAB BLOOD ORDERABLES Final Res ult Performing Organization Address [facility] de Phone Number AZAM XIE [address] [address] [facility] [address] * (ABNORMAL) Basic metabolic panel (08/28/2024 3:24 PM FLOUR BLENDER) Sodium 145 135 - 145 mmol/L Potassium, pl 4.5 3.3 - 4.9 mmol/L [facility] Chloride 115(H) 97 - 110 mmol/L [facility] CO2 19(L) 22 - 32 mmol/L [facility] Anion gap 11 2 - 15 mmol/L [facility] BUN 20 6 - 25 mg/dL [facility] Creatinine 0.51(L) 0.60 - 1.10 mg/dL [facility] Glucose 145 70 - 199 mg/dL [facility] Comment: Interpretive Data Fasting glucose >/= 126 mg/dl is diagnostic for diabetes. Fasting is defined as no caloric intake for at least 8 hours. Fasting glucose between 100 mg/dl to 125 mg/dl is diagnostic of prediabetes. In a patient with classic symptoms of hyperglycemia or hyperglycemic crisis, a random glucose >/= 200 mg/dl is diagnostic for diabetes. In the absence of unequivocal hyperglycemia, results should be confirmed by repeat testing. The classification and Diagnosis of Diabetes Diabetes Care 2021; 46: S19-S40. Current interpretive data was last revised 2022. Calcium 8.0(L) 8.5 - 10.3 mg/dL [facility] Blood 08/28/2024 3:24 PM FLOUR BLENDER 08/28/2024 3:53 PM FLOUR BLENDER Dusty Bernal MD LAB BLOOD ORDERABLES Final Res ult Performing Organization Address City/[facility]/ZIP Co de Phone Number [facility] [phone] [address] [place] [address] * POCT glucose (08/28/2024 2:59 PM FLOUR BLENDER) Glucose, POC 103 70 - 199 mg/dL Blood 08/28/2024 2:59 PM FLOUR BLENDER 08/28/2024 2:59 PM FLOUR BLENDER Dusty Bernal MD LAB POCT ORDERABLES - DEVICE F inal Result Performing Organization Address [facility] Co de Phone Number [facility] [address] [address] [place] [address] * (ABNORMAL) POC Blood Gas and Chemistries, Arterial - (08/28/2024 2:00 PM FLOUR BLENDER) pH, Art POC 7.32(L) 7.35 - 7.45 pCO2, Art POC 41 35 - 45 mmHg [facility] pO2, Art POC 243(H) 83 - 108 mmHg [facility] Na, POC 141 135 - 145 mmol/L [facility] K POC 3.9 3.3 - 4.9 mmol/L [facility] Comment: Interpretive Data This method is not able to assess for hemolysis, which may falsely increase potassium concentrations. If further testing is needed to evaluate this result, consider in-laboratory plasma potassium. Current Interpretive Data was last revised on 2022. Ionized Ca, POC 4.89 4.50 - 5.10 mg/dL [facility] Glucose, POC 157 70 - 199 mg/dL [facility] Lactate, POC 3.8(H) 0.7 - 2.0 mmol/L [facility] O2Hb, Art POC 98.0(H) 90.0 - 95.0 % [facility] SO2 (marilyn) arterial 100(H) 90 - 95 % [facility] Total CO2, Art POC 22 21 - 30 mmol/L [facility] BE, art, POC -5 mmol/L [facility] Hct, POC 27.0(L) 35.6 - 45.5 % [facility] Total Hb, POC 9.1(L) 11.9 - 15.5 g/dL [facility] Blood 08/28/2024 2:00 PM FLOUR BLENDER 08/28/2024 2:00 PM FLOUR BLENDER Dusty Bernal MD LAB POCT ORDERABLES - DEVICE F inal Result Performing Organization Address [facility] Co de Phone Number [facility] [address] [address] [place] [address] * POC Activated Clotting Time, High Range (08/28/2024 1:57 PM FLOUR BLENDER) ACT 109 87 - 138 sec Blood 08/28/2024 1:57 PM FLOUR BLENDER 08/28/2024 1:57 PM FLOUR BLENDER Dusty Bernal MD LAB BLOOD ORDERABLES Final Res ult Performing Organization Address [facility]/ZIP Co de Phone Number [facility] [address] [address] [place] [address] * Transfuse RBC (08/28/2024 1:34 PM FLOUR BLENDER) Blood Jorge Dyson MD BLOOD TRANSFUSION ORDERABLES F inal Result Performing Organization Address City/[facility]/ZIP Co de Phone Number [facility] [address] [address] Department [place] [address] * (ABNORMAL) POC Blood Gas and Chemistries, Arterial - (08/28/2024 1:20 PM FLOUR BLENDER) Pathologist [facility] pH, Art POC 7.33(L) 7.35 - 7.45 pCO2, Art POC 40 35 - 45 mmHg [facility] pO2, Art POC 201(H) 83 - 108 mmHg [facility] Na, POC 141 135 - 145 mmol/L [facility] K POC 4.5 3.3 - 4.9 mmol/L [facility] Comment: Interpretive Data This method is not able to assess for hemolysis, which may falsely increase potassium concentrations. If further testing is needed to evaluate this result, consider in-laboratory plasma potassium. Current Interpretive Data was last revised on 2022. Ionized Ca, POC 4.27(L) 4.50 - 5.10 mg/dL [facility] Glucose, POC 164 70 - 199 mg/dL [facility] Lactate, POC 4.9(C) 0.7 - 2.0 mmol/L [facility] O2Hb, Art POC 97.6(H) 90.0 - 95.0 % [facility] SO2 (marilyn) arterial 99(H) 90 - 95 % [facility] Total CO2, Art POC 22 21 - 30 mmol/L [facility] BE, art, POC -4 mmol/L [facility] Hct, POC 23.0(L) 35.6 - 45.5 % [facility] Total Hb, POC 7.5(L) 11.9 - 15.5 g/dL [facility] Blood 08/28/2024 1:20 PM FLOUR BLENDER 08/28/2024 1:20 PM FLOUR BLENDER us Dusty Bernal MD LAB POCT ORDERABLES - DEVICE F inal Result AZAM XIE [address] [address] [place] [address] * (ABNORMAL) POC Activated Clotting Time, High Range (08/28/2024 1:18 PM FLOUR BLENDER) Pathologist [facility] ACT 561(H) 87 - 138 sec Blood 08/28/2024 1:18 PM FLOUR BLENDER 08/28/2024 1:18 PM FLOUR BLENDER Dusty Bernal MD LAB BLOOD ORDERABLES Final Res ult Performing Organization Address City/[facility]/[place] [address] [address] [place] [address] * (ABNORMAL) POC Blood Gas and Chemistries, Arterial - (08/28/2024 12:50 PM FLOUR BLENDER) pH, Art POC 7.36 7.35 - 7.45 pCO2, Art POC 38 35 - 45 mmHg [facility] pO2, Art POC 231(H) 83 - 108 mmHg [facility] Na, POC 141 135 - 145 mmol/L [facility] K POC 4.9 3.3 - 4.9 mmol/L [facility] Comment: Interpretive Data This method is not able to assess for hemolysis, which may falsely increase potassium concentrations. If further testing is needed to evaluate this result, consider in-laboratory plasma potassium. Current Interpretive Data was last revised on 2022. Ionized Ca, POC 4.31(L) 4.50 - 5.10 mg/dL [facility] Glucose, POC 147 70 - 199 mg/dL [facility] Lactate, POC 4.3(C) 0.7 - 2.0 mmol/L [facility] O2Hb, Art POC 97.6(H) 90.0 - 95.0 % [facility] SO2 (marilyn) arterial 100(H) 90 - 95 % [facility] Total CO2, Art POC 23 21 - 30 mmol/L [facility] BE, art, POC -4 mmol/L [facility] Hct, POC 23.0(L) 35.6 - 45.5 % [facility] Total Hb, POC 7.8(L) 11.9 - 15.5 g/dL [facility] Blood 08/28/2024 12:5 0 PM FLOUR BLENDER 08/28/2024 12:50 PM FLOUR BLENDER Dusty Bernal MD LAB POCT ORDERABLES - DEVICE F inal Result Performing Organization Address City/[facility]/ZIP Co de Phone Number AZAM XIE [address] [address] [facility] [place] [address] * (ABNORMAL) POC Activated Clotting Time, High Range (08/28/2024 12:48 PM FLOUR BLENDER) Pathologist [facility] ACT 758(H) 87 - 138 sec Blood 08/28/2024 12:4 8 PM FLOUR BLENDER 08/28/2024 12:48 PM FLOUR BLENDER Dusty Bernal MD LAB BLOOD ORDERABLES Final Res ult Performing Organization Address [facility] Co de Phone Number AZAM XIE [address] [address] [facility] [address] * (ABNORMAL) Platelet count (08/28/2024 12:27 PM FLOUR BLENDER) Pathologist [facility] Plt 116(L) 150 - 400 K/cumm Blood 08/28/2024 12:2 7 PM FLOUR BLENDER 08/28/2024 12:30 PM FLOUR BLENDER Narrative [facility] - 08/28/2024 12:34 PM FLOUR BLENDER Please call results to ext. [phone]. Thanks. Dusty Bernal MD LAB BLOOD ORDERABLES Final Res ult Performing Organization Address [facility] Co de Phone Number AZAM XIE [address] [address] [place] [address] * (ABNORMAL) POC Blood Gas and Chemistries, Arterial - (08/28/2024 12:21 PM FLOUR BLENDER) pH, Art POC 7.39 7.35 - 7.45 pCO2, Art POC 36 35 - 45 mmHg [facility] pO2, Art POC 210(H) 83 - 108 mmHg [facility] Na, POC 139 135 - 145 mmol/L [facility] K POC 4.7 3.3 - 4.9 mmol/L [facility] Comment: Interpretive Data This method is not able to assess for hemolysis, which may falsely increase potassium concentrations. If further testing is needed to evaluate this result, consider in-laboratory plasma potassium. Current Interpretive Data was last revised on 2022. Ionized Ca, POC 4.23(L) 4.50 - 5.10 mg/dL [facility] Glucose, POC 159 70 - 199 mg/dL [facility] Lactate, POC 2.5(H) 0.7 - 2.0 mmol/L [facility] O2Hb, Art POC 98.0(H) 90.0 - 95.0 % [facility] SO2 (marilyn) arterial 100(H) 90 - 95 % [facility] Total CO2, Art POC 23 21 - 30 mmol/L [facility] BE, art, POC -3 mmol/L [facility] Hct, POC 23.0(L) 35.6 - 45.5 % [facility] Total Hb, POC 7.6(L) 11.9 - 15.5 g/dL [facility] Blood 08/28/2024 12:2 1 PM FLOUR BLENDER 08/28/2024 12:21 PM FLOUR BLENDER Dusty Bernal MD LAB POCT ORDERABLES - DEVICE F inal Result Performing Organization Address [facility]/ZIP Co de Phone Number AZAM ROJAS [address] [address] [place] [address] * (ABNORMAL) POC Activated Clotting Time, High Range (08/28/2024 12:18 PM FLOUR BLENDER) ACT >1,005(H) 87 - 138 sec Blood 08/28/2024 12:1 8 PM FLOUR BLENDER 08/28/2024 12:18 PM FLOUR BLENDER Dusty Bernal MD LAB BLOOD ORDERABLES Final Res ult Performing Organization Address City/[facility]/ZIP Co de Phone Number AVAVLAD XIE [address] [address] * (ABNORMAL) POC Blood Gas and Chemistries, Arterial - (08/28/2024 11:41 AM FLOUR BLENDER) pH, Art POC 7.36 7.35 - 7.45 pCO2, Art POC 41 35 - 45 mmHg CERNER CH pO2, Art POC 185(H) 83 - 108 mmHg CERNER CH Na, POC 139 135 - 145 mmol/L CERNER CH K POC 4.4 3.3 - 4.9 mmol/L CERNER CH Comment: Interpretive Data This method is not able to assess for hemolysis, which may falsely increase potassium concentrations. If further testing is needed to evaluate this result, consider in-laboratory plasma potassium. Current Interpretive Data was last revised on 2022. Ionized Ca, POC 4.50 4.50 - 5.10 mg/dL CERNER CH Glucose, POC 196 70 - 199 mg/dL CERNER CH Lactate, POC 1.6 0.7 - 2.0 mmol/L CERNER CH O2Hb, Art POC 97.2(H) 90.0 - 95.0 % CERNER CH SO2 (marilyn) arterial 100(H) 90 - 95 % CERNER CH Total CO2, Art POC 24 21 - 30 mmol/L CERNER CH BE, art, POC -2 mmol/L CERNER CH Hct, POC 23.0(L) 35.6 - 45.5 % CERNER CH Total Hb, POC 7.7(L) 11.9 - 15.5 g/dL CERNER CH Blood 08/28/2024 11:4 1 AM FLOUR BLENDER 08/28/2024 11:41 AM FLOUR BLENDER Dusty Bernal MD LAB POCT ORDERABLES - DEVICE F inal Result Performing Organization Address [facility] Co de Phone Number AZAM XIE [address] [place] [address] * (ABNORMAL) POC Activated Clotting Time, High Range (08/28/2024 11:39 AM FLOUR BLENDER) ACT >1,005(H) 87 - 138 sec Blood 08/28/2024 11:3 9 AM FLOUR BLENDER 08/28/2024 11:39 AM FLOUR BLENDER Dusty Bernal MD LAB BLOOD ORDERABLES Final Res ult Performing Organization Address City/[facility] Co de Phone Number AZAM ROJAS [address] Department [facility] [place] [address] * (ABNORMAL) POC Blood Gas and Chemistries, Arterial - (08/28/2024 11:10 AM FLOUR BLENDER) pH, Art POC 7.36 7.35 - 7.45 pCO2, Art POC 39 35 - 45 mmHg CERNER CH pO2, Art POC 211(H) 83 - 108 mmHg CERNER CH Na, POC 136 135 - 145 mmol/L CERNER CH K POC 5.2(H) 3.3 - 4.9 mmol/L CERNER CH Comment: Interpretive Data This method is not able to assess for hemolysis, which may falsely increase potassium concentrations. If further testing is needed to evaluate this result, consider in-laboratory plasma potassium. Current Interpretive Data was last revised on 2022. Ionized Ca, POC 4.37(L) 4.50 - 5.10 mg/dL CERNER CH Glucose, POC 191 70 - 199 mg/dL CERNER CH Lactate, POC 1.4 0.7 - 2.0 mmol/L CERNER CH O2Hb, Art POC 97.9(H) 90.0 - 95.0 % CERNER CH SO2 (marilyn) arterial 100(H) 90 - 95 % CERNER CH Total CO2, Art POC 23 21 - 30 mmol/L CERNER CH BE, art, POC -3 mmol/L CERNER CH Hct, POC 23.0(L) 35.6 - 45.5 % CERNER CH Total Hb, POC 7.8(L) 11.9 - 15.5 g/dL CERNER CH Blood 08/28/2024 11:1 0 AM FLOUR BLENDER 08/28/2024 11:10 AM FLOUR BLENDER us Dusty Bernal MD LAB POCT ORDERABLES - DEVICE F inal Result AZAM XIE [address] [place] [address] * (ABNORMAL) POC Activated Clotting Time, High Range (08/28/2024 11:07 AM FLOUR BLENDER) ACT 571(H) 87 - 138 sec Blood 08/28/2024 11:0 7 AM FLOUR BLENDER 08/28/2024 11:07 AM FLOUR BLENDER Dusty Bernal MD LAB BLOOD ORDERABLES Final Res ult Performing Organization Address City/[facility]/ZIP Co de Phone Number CERNER [address] Department [place] [address] * (ABNORMAL) POC Blood Gas and Chemistries, Arterial - (08/28/2024 10:39 AM FLOUR BLENDER) pH, Art POC 7.39 7.35 - 7.45 pCO2, Art POC 37 35 - 45 mmHg CERNER CH pO2, Art POC 206(H) 83 - 108 mmHg CERNER CH Na, POC 136 135 - 145 mmol/L CERNER CH K POC 5.1(H) 3.3 - 4.9 mmol/L CERNER CH Comment: Interpretive Data This method is not able to assess for hemolysis, which may falsely increase potassium concentrations. If further testing is needed to evaluate this result, consider in-laboratory plasma potassium. Current Interpretive Data was last revised on 2022. Ionized Ca, POC 4.34(L) 4.50 - 5.10 mg/dL CERNER CH Glucose, POC 175 70 - 199 mg/dL CERNER CH Lactate, POC 1.3 0.7 - 2.0 mmol/L CERNER CH O2Hb, Art POC 98.0(H) 90.0 - 95.0 % CERNER CH SO2 (marilyn) arterial 100(H) 90 - 95 % CERNER CH Total CO2, Art POC 24 21 - 30 mmol/L CERNER CH BE, art, POC -2 mmol/L CERNER CH Hct, POC 24.0(L) 35.6 - 45.5 % CERNER CH Total Hb, POC 7.9(L) 11.9 - 15.5 g/dL CERNER CH Blood 08/28/2024 10:3 9 AM FLOUR BLENDER 08/28/2024 10:39 AM FLOUR BLENDER Dusty Bernal MD LAB POCT ORDERABLES - [place] [address] [address] Department [place] [address] * (ABNORMAL) POC Activated Clotting Time, High Range (08/28/2024 10:37 AM FLOUR BLENDER) ACT 791(H) 87 - 138 sec Blood 08/28/2024 10:3 7 AM FLOUR BLENDER 08/28/2024 10:37 AM FLOUR BLENDER Dusty Bernal MD LAB BLOOD ORDERABLES Final Res ult AZAM XIE [address] Department [place] [address] * (ABNORMAL) POC Blood Gas and Chemistries, Arterial - (08/28/2024 9:52 AM FLOUR BLENDER) pH, Art POC 7.32(L) 7.35 - 7.45 pCO2, Art POC 44 35 - 45 mmHg CERNER CH pO2, Art POC 264(H) 83 - 108 mmHg CERNER CH Na, POC 136 135 - 145 mmol/L CERNER CH K POC 5.3(H) 3.3 - 4.9 mmol/L CERNER CH Comment: Interpretive Data This method is not able to assess for hemolysis, which may falsely increase potassium concentrations. If further testing is needed to evaluate this result, consider in-laboratory plasma potassium. Current Interpretive Data was last revised on 2022. Ionized Ca, POC 4.27(L) 4.50 - 5.10 mg/dL CERNER CH Glucose, POC 124 70 - 199 mg/dL CERNER CH Lactate, POC 1.3 0.7 - 2.0 mmol/L CERNER CH O2Hb, Art POC 97.8(H) 90.0 - 95.0 % CERNER CH SO2 (marilyn) arterial 100(H) 90 - 95 % CERNER CH Total CO2, Art POC 24 21 - 30 mmol/L CERNER CH BE, art, POC -3 mmol/L CERNER CH Hct, POC 24.0(L) 35.6 - 45.5 % CERNER CH Total Hb, POC 8.0(L) 11.9 - 15.5 g/dL CERNER CH Blood 08/28/2024 9:52 AM FLOUR BLENDER 08/28/2024 9:52 AM FLOUR BLENDER Result [facility] Dusty Bernal MD LAB POCT ORDERABLES - DEVICE F inal Result Performing Organization Address [facility] de Phone Number AVAVLAD XIE [address] [facility] [address] * (ABNORMAL) POC Activated Clotting Time, High Range (08/28/2024 9:50 AM FLOUR BLENDER) ACT >1,005(H) 87 - 138 sec Blood 08/28/2024 9:50 AM FLOUR BLENDER 08/28/2024 9:50 AM FLOUR BLENDER Result [facility] Dusty Bernal MD LAB BLOOD ORDERABLES Final Res ult Performing Organization Address [facility] de Phone Number AZAM ROJAS [address] [facility] [place] [address] * (ABNORMAL) POC Activated Clotting Time, High Range (08/28/2024 8:51 AM FLOUR BLENDER) ACT 556(H) 87 - 138 sec Blood 08/28/2024 8:51 AM FLOUR BLENDER 08/28/2024 8:51 AM FLOUR BLENDER Dusty Bernal MD LAB BLOOD ORDERABLES Final Res ult Performing Organization Address [facility] de Phone Number AVAVLAD XIE [address] [facility] [place] [address] * (ABNORMAL) POC Blood Gas and Chemistries, Arterial - (08/28/2024 8:51 AM FLOUR BLENDER) pH, Art POC 7.38 7.35 - 7.45 pCO2, Art POC 38 35 - 45 mmHg CERNER CH pO2, Art POC 274(H) 83 - 108 mmHg CERNER CH Na, POC 137 135 - 145 mmol/L CERNER CH K POC 3.4 3.3 - 4.9 mmol/L CERNER CH Comment: Interpretive Data This method is not able to assess for hemolysis, which may falsely increase potassium concentrations. If further testing is needed to evaluate this result, consider in-laboratory plasma potassium. Current Interpretive Data was last revised on 2022. Ionized Ca, POC 4.58 4.50 - 5.10 mg/dL CERNER CH Glucose, POC 128 70 - 199 mg/dL CERNER CH Lactate, POC 0.6(L) 0.7 - 2.0 mmol/L CERNER CH O2Hb, Art POC 97.8(H) 90.0 - 95.0 % CERNER CH SO2 (marilyn) arterial 100(H) 90 - 95 % CERNER CH Total CO2, Art POC 24 21 - 30 mmol/L CERNER CH BE, art, POC -2 mmol/L CERNER CH Hct, POC 31.0(L) 35.6 - 45.5 % CERNER CH Total Hb, POC 10.3(L) 11.9 - 15.5 g/dL CERNER CH Blood 08/28/2024 8:51 AM FLOUR BLENDER 08/28/2024 8:51 AM FLOUR BLENDER Dusty Bernal MD LAB POCT ORDERABLES - DEVICE F inal Result CERNER [address] Department [place] [address] * Prepare RBC: 4 Units (08/28/2024 8:02 AM FLOUR BLENDER) Pathologist [facility] Product code [id number] CERNER CH Unit Number [id number] CERNER CH Product Blood Type BPOS CERNER CH Dispense Status PRESUMED TRANSFUSED CERNER CH Product code [id number] CERNER CH Unit Number [id number] CERNER CH Product Blood Type BPOS CERNER CH Dispense Status RETURNED CERNER CH Product code [id number] CERNER CH Unit Number [id number] CERNER CH Product Blood Type BPOS CERNER CH Dispense Status RETURNED CERNER CH Product code [id number] Unit Number [id number] CERNER CH Product Blood Type BPOS [facility] Dispense Status RETURNED [facility] Blood 08/28/2024 8:02 AM FLOUR BLENDER Narrative [facility] - 08/29/2024 12:28 AM FLOUR BLENDER Are special requirements needed? (All products are leukoreduced and CMV- safe)- >No Date required:-[id number] LRRBC # of [id number] Reasons:-Intra-op transfusion} Dusty Bernal MD BLOOD BANK PRODUCT ORDERABLES Final Result [facility] [address] [place] [address] * BW AN SHEATH INTRODUCER PERFORMABLE, PULMONARY ARTERY CATH (08/28/2024 7:59 AM FLOUR BLENDER) Narrative Atilio Pressley AA - 08/28/2024 7:59 AM FLOUR BLENDER Atilio Pressley AA 08/28/2024 8:00 AM Central Venous Line Patient location: OR Indication: central venous access Staff: Supervising provider: Jorge Dyson MD Placed by: AA: Atilio Pressley AA Procedure prep: Patient position: Trendelenburg. PPE: provider hat/mask, sterile gloves, sterile gown, provider hand hygiene and full body drape. Prep solution: chlorhexadine/alcohol was applied to area. Ultrasound Evaluation: Ultrasound was used prior to prep. Ultrasound image(s) saved to archive. Central line: Laterality: right Site: internal jugular Catheter type: multi-lumen access catheter (MAC) Catheter size: 9 Fr. Technique: anatomy identified with ultrasound, vein located with finder needle, Seldinger technique, wire threaded easily and wire removed intact Venous verification: pressure transduced Post insertion: all ports aspirated, all ports flushed easily, line sutured in place and occlusive dressing applied Chlorhexidine patch applied: yes Number of attempts: 1 PA catheter placement: PA catheter type: oximetric PA catheter size: 8 Fr PA catheter laterality: right PA catheter site: internal jugular Placement guided by: pressure tracing changesNo Assessment: Events: patient tolerated procedure well with no complications us Jorge Dyson MD ANESTHESIA ORDERABLES Final Re sult * ME AN ELECTIVE ENDOTRACHEAL AIRWAY (08/28/2024 7:59 AM FLOUR BLENDER) Narrative Atilio Pressley AA - 08/28/2024 7:59 AM FLOUR BLENDER Atilio Pressley AA 08/28/2024 7:59 AM Airway Patient location: OR Urgency: elective Indications for airway management: anesthesia Difficult airway: no Staff: Supervising provider: Jorge Dyson MD Placed by: AA: Atilio Pressley AA Emergent airway documentation: Risks and benefits discussed: yes Consent obtained: yes Consent given by: patient Airway prep: Preoxygenated: yes Patient position: sniffing Mask difficulty assessment: 1 - vent by mask Spontaneous ventilation during airway: absent Sedation level during airway: GA Final airway details: Final airway type: endotracheal airway Tube type: ETT ETT size: 7.5 mm Cuffed: yes Technique used for successful ETT placement: video laryngoscopy Insertion site: oral Blade type: Xena Video blade type: Pennington Blade size: 3 Cormack-Lehane (direct): grade I - full view of glottis Cuff inflated with: air Placement verified by: auscultation and CO2 detection Airway secured with: silk tape Number of attempts: 1 Additional comments: Done by thaddeus Oneal Jorge Dyson MD ANESTHESIA ORDERABLES Final Re sult * (ABNORMAL) POC Blood Gas and Chemistries, Arterial - (08/28/2024 7:56 AM FLOUR BLENDER) pH, Art POC 7.46(H) 7.35 - 7.45 pCO2, Art POC 34(L) 35 - 45 mmHg CERNER CH pO2, Art POC 352(H) 83 - 108 mmHg CERNER CH Na, POC 137 135 - 145 mmol/L CERNER CH K POC 3.4 3.3 - 4.9 mmol/L CERNER CH Comment: Interpretive Data This method is not able to assess for hemolysis, which may falsely increase potassium concentrations. If further testing is needed to evaluate this result, consider in-laboratory plasma potassium. Current Interpretive Data was last revised on 2022. Ionized Ca, POC 4.63 4.50 - 5.10 mg/dL CERNER CH Glucose, POC 92 70 - 199 mg/dL CERNER CH Lactate, POC 0.5(L) 0.7 - 2.0 mmol/L CERNER CH O2Hb, Art POC 97.1(H) 90.0 - 95.0 % CERNER CH SO2 (marilyn) arterial 100(H) 90 - 95 % CERNER CH Total CO2, Art POC 25 21 - 30 mmol/L CERNER CH BE, art, POC 1 mmol/L CERNER CH Hct, POC 33.0(L) 35.6 - 45.5 % CERNER CH Total Hb, POC 10.9(L) 11.9 - 15.5 g/dL CERNER CH Blood 08/28/2024 7:56 AM FLOUR BLENDER 08/28/2024 7:56 AM FLOUR BLENDER Dusty Bernal MD LAB POCT ORDERABLES - DEVICE F inal Result Performing Organization Address [facility] Co de Phone Number AVAVLAD XIE [address] [place] [address] * POC Activated Clotting Time, High Range (08/28/2024 7:54 AM FLOUR BLENDER) ACT 104 87 - 138 sec Blood 08/28/2024 7:54 AM FLOUR BLENDER 08/28/2024 7:54 AM FLOUR BLENDER Dusty Bernal MD LAB BLOOD ORDERABLES Final Res ult Performing Organization Address [facility] Co de Phone Number AVAVLAD [address] [address] Department [place] [address] * Arterial Line (08/28/2024 7:28 AM FLOUR BLENDER) Narrative Atilio Pressley AA - 08/28/2024 7:28 AM FLOUR BLENDER Atilio Pressley AA 08/28/2024 7:29 AM Arterial Line Patient location: pre-op holding Indication: continuous blood pressure monitoring and blood sampling needed Staff: Placed by: AA: Atilio Pressley AA Procedure prep: Prep solution: chlorhexadine/alcohol Prep: provider hat/mask and sterile gloves Skin infiltrated with lidocaine 1%: yes Arterial line: Catheter size: 20 gauge Catheter length: 1 and 3/4 inch Catheter type: wire-guided catheter Seldinger technique: yes Laterality: right Site: radial artery Line secured: Tegaderm and tape Results: good waveform and good blood return Number of attempts: 1 Assessment: Events: patient tolerated procedure well with no complications Additional comments: Done by thaddeus Oneal Jorge Dyson MD ANESTHESIA ORDERABLES Final Re sult * Hemoglobin A1c (07/31/2024 9:09 AM FLOUR BLENDER) Pathologist [facility] Hgb A1C 5.3 4.0 - 5.6 % Estimated Average Glucose 105 mg/dL AZAM XIE Comment: The ADA recommends reporting an estimated Average Glucose (eAG) with all Hemoglobin A1c results using the equation derived from a study of 507 normal and diabetic adults. Minority populations were underrepresented and children were not included. (Diabetes Care 31:0232-6152, 2008). The eAG is not equivalent to a fasting glucose. Blood 07/31/2024 9:09 AM FLOUR BLENDER 07/31/2024 9:35 AM FLOUR BLENDER Fidelia Samuels SWITCHBOARD OPERATOR LAB BLOOD ORDERABLES Final Res ult AZAM [address] Department [place] [address] * (ABNORMAL) Lipid panel (06/10/2024) Pathologist [facility] SCRIBED Cholesterol, Total 196 < - 200 EXTERNAL LAB SCRIBED HDL 56(A) > - 40 EXTERNAL LAB SCRIBED LDL 112(A) < - 100 EXTERNAL LAB SCRIBED Triglycerides 95 < - 150 EXTERNAL LAB Blood 06/10/2024 Gunjan Sal MD LAB BLOOD ORDERABLES Randa arnold Result EXTERNAL LAB from Last 3 Months or Most Recently Relevant to Health Maintenance Insurance T MEDICARE [facility] MEDICARE Advance Directives For more information, please contact: [phone] Documents on File Type Date Recorded Patient Maintenance Painter Expl anation ADVANCE DIRECTIVE 09/11/2024 1:01 PM POWER OF ASSURANCE SPECIALIST-MEDICAL * Full Code (Latest Code Status on File) Date Activated Date Inactivated Comments 08/28/2024 3:22 PM 09/10/2024 5:56 PM Care Teams Forest Fire Officer Relationship Specialty [place] [address] [place] [address] DR ESTRADA [address] [place] [address] PCP - General Family Medicine 09/10/24 Dusty Bernal MD [id number] [place] [address] Surgeon Cardiothoracic Surgery 09/10/24 Brendan Pool MD [address] [address] Consulting Physician Cardiology 09/10/24 Miscellaneous, Not In File 09/10/24
--- OUTSIDE RECORDS SUMMARY | 2024-11-19 11:42 | XMS_ITS | Encounter Summary ---
Author Organization [facility] Healthcare Address [address] [place] [address] Care Team Providers Care Rn Geriatric Name Role Phone Meme Richardson DO Primary Care Provider [phone] Dusty Bernal MD Unavailable [phone] Brendan Pool MD Unavailable Miscellaneous, Not In File Unavailable Unava ilable Reason for Referral * Cardiology (Routine) - Pending Review Specialty Diagnoses / Procedures Referred By Contac t Referred To Contact Diagnoses Shortness of breath Procedures Transthoracic Echo (TTE) Complete W Doppler/CF Trina Newman NP [address] [place] [address] Phone: tel: fax: Referral ID Status Reason Start Date Expiration Date V isits Requested Visits Authorized [id number] Pending Review 11/19/2024 12/19/2025 1 1 Reason for Visit * Reason Comments Shortness of Breath Low hear rate Encounter Details Date Type Department Care Team (Late Contact Info) Description 11/19/2024 9:00 AM CDT Office Visit [facility] Medical Group Cardiology [address] [place] [address] [id number] Trina Newman NP [address] [facility] [address] [id number] Shortness of breath (Primary Dx); Fatigue, unspecified type; Coronary artery disease of [place] artery of [place] heart with stable angina pectoris; S/P CABG x 4; Status post mitral valve annuloplasty; Statin myopathy; Paroxysmal atrial fibrillation (HCC); Chronic anticoagulation Social History Tobacco Use Types Packs/Day Years [...] materials from doctor or pharmacy Never 10/23/2024 [facility] Utilities Answer Date Recorded In the past 12 months has e Plan A Drink, oil, or water [employer] threatened to shut off services in your [...] often do you attend chur ch or orthodox services? More than 4 times per year 08/30/2024 Do you belong to any clubs o r organizations such as cheondoism groups, unions, fraternal or athletic groups, or [...] any time in the past 12 m [facility], were you homeless or living in a usp (including now)? No 08/30/2024 Personal Safety Answer [...] on file documented as of this encounter Last Filed Vital Signs Vital Sign Reading Time Taken Comments Blood Pressure 134/64 11/19/2024 9:30 AM CDT Pulse 60 11/19/2024 9:30 AM CDT Temperature - - Respiratory Rate - - Oxygen Saturation 98% 11/19/2024 9:10 AM CDT Inhaled Oxygen Concentration - - Weight 63.5 kg (140 lb) 11/19/2024 9:10 AM CDT Height 154.9 cm (5' 1 ) 11/19/2024 9:10 AM CDT Body Mass Index 26.45 11/19/2024 9:10 AM CDT documented in this encounter Progress Notes * Trina Newman NP - 11/19/2024 9:00 AM CDT Images from the original note were not included. [facility] Medical Group Cardiology [address] [place] [address] Date of Visit: 11/19/2024 Patient ID: Michelle Henry [id number] Chief Complaint Patient presents with Shortness of Breath Low hear rate Michelle Henry is a 79 y.o. female who comes to the office for concern of low heart rate and dyspnea on exertion. History of Present Illness: Michelle Henry is a 79 y.o. female with CAD, history of ST-elevation RI; history of CABG x4 (FERMIN to LAD, radial graft sequential to diagonal branch and OM branch, SVG to PDA), s/p mitral valve repair (on 08/28/2024), hypertension, dyslipidemia. Patient presented to [facility] Emergency room on 06/10/2024 with 2 day history of persistent chest pain which got worse on the day of admission her initial EKG in the ER showed nonspecific T-wave abnormality. Subsequent EKG showed ST elevation in the inferior leads. Patient was emergently taken to the cardiac catheterization lab on 06/10/2024 which showed 100% thrombotic occlusion of mid-distal left circumflex artery-infarct related vessel; and other multivessel CAD involving LAD, diagonal, om; RCA could not be visualized at at that time. Patient underwent PCI with CONSERVATION ENFORCEMENT OFFICER/stenting of mid-distal LCX using 3.0 x 30 mm and 2.5 x 10 mm Biotronik sirolimus eluting stents, however, there wasno reflow due to significant thrombus burden which did not improve with aspiration thrombectomy andintracoronary administration of multiple medications including nitroprusside, adenosine, epinephrine, eptifibatide. Echo reportedly showed LVEF 50 55% with segmental wall motion abnormality during that hospitalization. Patient was managed medically including dual antiplatelet therapy, statin. She was brought back to the dairy and food laboratory assistant on 07/23/2024 and coronary angiogram showed multivessel CAD. She wasreferred to CT surgery for surgical revascularization. Patient underwent CABG x4 and mitral valve annuloplasty on 08/28/2024. She had prolonged hospitalization, from 08/28/2024-09/10/2024. She apparently had postop AFib and was discharged home on anticoagulation with apixaban. 10/10/2024-patient is here for the follow-up visit accompanied by the daughter. She had prolonged hospitalization post CABG. She is currently undergoing home physical therapy. Patient reports generalized fatigue and shakiness when she walks. She denies chest pain or shortness of breath for level activity. No palpitation, dizziness or syncope. Compliant with current medicalregimen. No recent falls. 11/19/2024 office visit with SUPPORT REPRESENTATIVE: The nurses at cardiac rehab encouraged her to come back to the office for evaluation due to shortness of breath and fatigue. Heart rate at cardiac rehab has been 50s to 60, elevates to 72 exercise. [employer] has given her some alerts to AFib. She feels like she isnot really regaining energy after her bypass and she now feels short of breath consistently. Her daughter notices she even seems short of breath at rest. She has a slight cough which is new and her daughter hears her wheezing. Her inhaler seems to help. She denies chest pain, syncope, orthopnea or PND. Her stool has looked normal. She does have chronic constipation and has been queasy recently but no vomiting. She also had problem with statin myopathy years ago and asked about back. Medical History: Past Medical History: Diagnosis Date Anxiety Arthritis Atrial fibrillation (HCC) paroxysmal atrial fibrillation Belching CAD (coronary artery disease) 06/10/2024 Cardiac rhythm disturbance Cataract Delayed emergence from general anesthesia GERD (gastroesophageal reflux disease) Aug 28 2024 Heart disease Hyperlipidemia Hypertension Kidney stone Macular degeneration of left eye Motion sickness Past heart attack Pneumonia SOB (shortness of breath) on exertion STEMI (ST elevation myocardial infarction) ([facility]) 06/10/2024 Vertigo Past Surgical History: Procedure Laterality Date CARDIAC CATHETERIZATION CARDIAC VALVE REPLACEMENT Repair aug [id number] CATARACT EXTRACTION, BILATERAL CHEST DRAINAGE W IMAGING RIGHT Right 09/05/2024 CORONARY ANGIOPLASTY WITH STENT PLACEMENT 06/10/2024 x2 stents CORONARY ARTERY BYPASS GRAFT Aug 28 2024 CYST REMOVAL Left collarbone TUBAL LIGATION Social History Tobacco Use Smoking Status Never Smokeless Tobacco Never Social History Tobacco Use Smoking status: Never Smokeless tobacco: Never Substance and Sexual Activity Drug use: Not Currently Types: Alcohol Comment: social Sexual activity: Defer Alcohol Use: Not At Risk (08/30/2024) AUDIT-C Frequency of Alcohol Consumption: Monthly or less Average Number of Drinks: 1 or 2 Frequency of Binge Drinking: Never Family History Problem Relation Age of Onset Heart attack Mother Thyroid cancer Mother Heart attack Father Heart attack Sister Review of Systems Constitutional: Positive for malaise/fatigue. Negative for weight gain and weight loss. Cardiovascular: Positive for dyspnea on exertion. Negative for chest pain, leg swelling, near-syncope, orthopnea, palpitations, paroxysmal nocturnal dyspnea and syncope. Respiratory: Positive for cough, shortness of breath and wheezing. Negative for sleep disturbances due to breathing. Hematologic/Lymphatic: Negative for bleeding problem. Does not bruise/bleed easily. Vital Signs: BP 134/64 (BP Location: Left arm, Patient Position: Sitting) Pulse 60 Ht 154.9 cm (5' 1 ) Wt 63.5 kg (140 lb) SpO2 98% BMI 26.45 kg/m?? Physical Exam Constitutional: General: She is not in acute distress. Appearance: She is well-developed. HENT: Head: Normocephalic and atraumatic. Eyes: General: No scleral icterus. Conjunctiva/sclera: Conjunctivae normal. Neck: Vascular: No JVD. Trachea: No tracheal deviation. Cardiovascular: Rate and Rhythm: Normal rate and regular rhythm. Heart sounds: Normal heart sounds. No murmur heard. Pulmonary: Effort: Pulmonary effort is normal. No respiratory distress. Breath sounds: Examination of the left-upper field reveals decreased breath sounds. Examination of the left-middle field reveals decreased breath sounds. Examination of the left-lower field reveals decreased breath sounds. Decreased breath sounds present. Musculoskeletal: Right lower leg: No edema. Left lower leg: No edema. Skin: General: Skin is warm and dry. Neurological: Mental Status: She is alert and oriented to person, place, and time. Psychiatric: Mood and Affect: Mood normal. Behavior: Behavior normal. Allergies Allergen Reactions Niacin Headache Nwtzyvz-Xoy-Pgq Reductase Inhibitors Other (See comments) Certain statins caused muscle weakness Current Outpatient Medications: acetaminophen 500 mg capsule, Take 2 capsules (1,000 mg total) by mouth every 6 (six) hours as needed for fever or pain, Disp: , Rfl: apixaban (Eliquis) 5 mg tablet, TAKE 1 TABLET(5 MG) BY MOUTH TWICE DAILY, Disp: 60 tablet, Rfl: 2 atorvastatin (LIPITOR) 40 mg tablet, Take 1 tablet (40 mg total) by mouth daily, Disp: 90 tablet, Rfl: 3 cetirizine 10 mg capsule, Take 1 tablet by mouth male model before breakfast , Disp: , Rfl: cholecalciferol, vitamin D3, 1,000 unit tablet,chewable, Take 1 tablet/chew tab by mouth male model before breakfast, Disp: , Rfl: clopidogreL (PLAVIX) 75 mg tablet, TAKE 1 TABLET(75 MG) BY MOUTH DAILY, Disp: 30 tablet, Rfl: 2 famotidine (PEPCID) 20 mg tablet, TAKE 1 TABLET(20 MG) BY MOUTH DAILY, Disp: 90 tablet, Rfl: 1 fluticasone propionate (FLONASE) 50 mcg/actuation nasal spray, Administer 1 spray into each nostrildaily, Disp: , Rfl: glycerin suppository, Insert 1 suppository into the rectum daily as needed for constipation over the counter med, Disp: , Rfl: lidocaine (LIDODERM) 5 %, Place 1 patch on the skin daily Remove & discard patch within 12 hours or as directed by MD., Disp: , Rfl: losartan (COZAAR) 25 mg tablet, Take 1 tablet (25 mg total) by mouth daily, Disp: , Rfl: metoprolol tartrate (LOPRESSOR) 25 mg immediate release tablet, Take 0.5 tablets (12.5 mg total) bymouth 2 (two) times a day, Disp: 30 tablet, Rfl: 11 psyllium (KONSYL) powder, Take 1 Application by mouth daily. Indications: constipation, Disp: , Rfl: senna-docusate (Senna-S) 8.6-50 mg, Take 1 tablet by mouth daily, Disp: , Rfl: sertraline (ZOLOFT) 50 mg tablet, Take 1 tablet (50 mg total) by mouth daily, Disp: , Rfl: simethicone (MYLICON) 125 mg chewable tablet, Take 1 tablet (125 mg total) by mouth every 6 (six) hours as needed for flatulence, Disp: , Rfl: Lab Results Component Value Date POTASSIUM 4.2 09/15/2024 BUNSER 23 09/15/2024 CREATININE 0.83 09/15/2024 EGFR 92 07/19/2024 Lab Results Component Value Date WBC See Comment 09/24/2024 WBC 10.0 (H) 09/24/2024 HGB See Comment 09/24/2024 HGB 10.3 (L) 09/24/2024 HCT See Comment 09/24/2024 HCT 31.7 (L) 09/24/2024 MCV See Comment 09/24/2024 MCV 89.3 09/24/2024 No results found for this or any previous visit (from the past 4 hours). No results found for: POCCHOL , POCHDL , POCTRIG , POCLDL , POCNONHDL , POCCHLPL Assessment: Diagnoses and all orders for this visit: Shortness of breath (Primary) - XR Chest Pa Lateral 2 Views; Future - Transthoracic Echo (TTE) Complete W Doppler/CF; Future Fatigue, unspecified type Coronary artery disease of quartz [place] artery of [place] heart with stable angina pectoris - CBC with auto differential; Future - Comprehensive metabolic panel; Future - Creatine kinase (CK), total; Future S/P CABG x 4 Status post mitral valve annuloplasty Statin myopathy Paroxysmal atrial fibrillation (HCC) Chronic anticoagulation Plan/Recommendations: Patient is status post CABG x4 and mitral valve annuloplasty. She had prolonged hospital course andfeels like she is not really regaining energy despite doing cardiac rehab. She is noticing increasing shortness of breath. She has diminished lung sounds on the left side. She had a left-sided pleural effusion after CABG I will send her for a chest x-ray today to reassess for a fusion. She may needa thoracentesis again. Continue single antiplatelet treatment with clopidogrel, and atorvastatin. She may continue cardiac rehab for now. Due to her ongoing fatigue and shortness of breath reassess complete metabolic panel and reassess cardiac structure and function with a repeat echocardiogram. Specifically reassess LV function and mitral valve function s/p annuloplasty. She reports a history of statin myopathy, specifically she said her muscle enzymes were elevated inthe past when she was on statin. I will reassess this with a creatinine kinase level. Continue atorvastatin until I get this result and await further instructions. Patient with paroxysmal atrial fibrillation, currently in sinus rhythm. Rhythm strips from cardiac rehab show regular rhythm with heart rate in the 50s to 60. I reassured her it is okay to have paroxysms of AFib as long as she is anticoagulated and her heart rate is controlled. I will check a CBC to reassess her postop anemia. She has had a heart rate in the 50s and 60s but this is acceptable. For now continue Eliquis and metoprolol the same. Blood pressure is normotensive. Continue losartan and metoprolol tartrate. 11/19/2024 CADEN Youngblood-BC Nurse Practitioner with [facility] [place] [facility] This note is dictated and transcribed using [employer] Software. Routing Equipment Tender variancesmay occur. Despite proofreading, typographical errors may occur. documented in this encounter Plan of Treatment Scheduled Orders Name Type Priority Associated Diagnoses Order Schedule CBC with auto differential Lab Routine Coronary artery disease of quartz [place] artery of [place] heart with stable angina pectoris Expected: 11/19/2024, Expires: 11/19/2025 Comprehensive metabolic panel Lab Routine Coronary artery disease of [place] artery of [place] heart with stable angina pectoris Expected: 11/19/2024, Expires: 11/19/2025 XR Chest Pa Lateral 2 Views Imaging Routine Shortness of breath Expected: 11/19/2024, Expires: 12/19/2024 Transthoracic Echo (TTE) Complete W Doppler/CF Echocardiography Routine Shortness of breath Expected: 12/03/2024 (Approximate), Expires: 02/18/2026 Creatine kinase (CK), total Lab Routine Coronary artery disease of [place] artery of [place] heart with stable angina pectoris Expected: 11/19/2024, Expires: 11/19/2025 documented as of this encounter Visit Diagnoses Diagnosis Shortness of breath- Primary Fatigue, unspecified type 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 sertraline (ZOLOFT) 50 mg tablet Take 1 tablet (50 mg total) by mouth daily 10/22/2024 losartan (COZAAR) 25 mg tablet Take 1 tablet (25 mg total) by mouth daily 10/01/2024 added in this encounter Care Teams Rn Geriatric Relationship Specialty Start Date End Date Meme Richardson DO [facility] [address] [address] PCP - General Family Medicine 09/10/24 Dusty Bernal MD [id number] [place] [address] Surgeon Cardiothoracic Surgery 09/10/24 Brendan Pool MD [address] [facility] [address] [place] [id number] Consulting Physician Cardiology 09/10/24 Miscellaneous, Not In File 09/10/24 documented as of this encounter
--- OUTSIDE RECORDS SUMMARY | 2024-11-19 11:42 | XMS_ITS | Referral Summary ---
Author Organization [address] Address [address] [facility] 162 [place] [address] Care Team Providers Care It Infrastructure Consultant Name Role Phone Meme Richardson DO Primary Care Provider [phone] Dusty Bernal MD Unavailable [phone] Brendan Pool MD Unavailable Miscellaneous, Not In File Unavailable Unava ilable Encounters Date Type Department Care Team Description 11/19/2024 Telephone [facility] Medical [facility] Cardiology [address] [place] [address] [address] [place] [address] Brendan Pool MD 11/19/2024 9:00 AM CDT Office Visit [facility] Medical [facility] Cardiology [address] [place] [address] [address] [place] [address] Trina Newman NP Shortness of breath (Primary Dx); Fatigue, unspecified type; 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; S/P CABG x 4; Status post mitral valve annuloplasty; Statin myopathy; Paroxysmal atrial fibrillation (HCC); Chronic anticoagulation 10/23/2024 11:00 AM CDT Home Care Visit [address] [place] [address] Swathi Pepper RN SN OASIS DISCHARGE 10/15/2024 1:00 PM MANAGER E COMMERCE Home Care Visit [address] [place] [address] Swathi Pepper RN SN HOME VISIT 10/12/2024 Telephone [facility] Cardiology [address] [place] [address] [address] [place] [address] Brendan Pool MD 10/11/2024 8:30 AM MANAGER E COMMERCE Home Care Visit [address] [place] [address] Angelica Hernandez, PT PT DISCIPLINE DISCHARGE 10/10/2024 1:00 PM MANAGER E COMM[employer]CE Office Visit [facility] Cardiology [address] [place] [address] [address] [place] [address] Brendan Pool MD 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 (Primary Dx); History of ST elevation myocardial infarction (STEMI); S/P CABG x 4; Status post mitral valve annuloplasty; Paroxysmal atrial fibrillation (HCC) 10/08/2024 8:30 AM MANAGER E COMMERCE Home Care Visit [address] [place] [address] Angelica Hernandez, PT PT HOME VISIT 10/08/2024 10:00 AM MANAGER E [employer]ER[employer] Home Care Visit [address] [place] [address] Swathi Pepper RN SN HOME VISIT 10/04/2024 8:30 AM MANAGER E [employer] Home Care Visit [address] [place] [address] Angelica Hernandez, PT PT HOME VISIT 10/03/2024 Home Care Visit [address] [place] [address] Adrienne Caldera RN SN TRIAGE ENCOUNTER 10/03/2024 Telephone [facility] Cardiology [address] [place] [address] [address] [place] [address] Brendan Pool MD 10/01/2024 8:30 AM MANAGER E [employer] Home Care Visit [place] [address] [address] [place] [address] Angelica Hernandez, PT PT HOME VISIT 10/01/2024 2:00 PM MANAGER E [employer]ERCE Home Care Visit [address] [place] [address] Daily Melendez RN SN HOME VISIT 09/28/2024 10:00 AM MANAGER E [employer] Home Care Visit [address] [place] [address] Angelica Hernandez, PT PT HOME VISIT 09/27/2024 11:05 AM MANAGER E COMM[employer]CE - 09/27/2024 11:59 PM MANAGER E [employer] Hospital Encounter [facility] Diagnostic Imaging [address] [place] [address] Pleural effusion on left Discharge Disposition: Discharge to home or self care 09/27/2024 12:45 PM MANAGER E COMMERCE Office Visit [facility] Surgery [address] [facility] [address] [place] [address] Dusty Bernal MD Pleural effusion on left (Primary Dx) 09/25/2024 8:00 AM MANAGER E [employer]ERCE Home Care Visit [address] [place] [address] Angelica Hernandez, PT PT HOME VISIT 09/24/2024 Home Care Visit [address] [place] [address] Swathi Pepper RN TELEPHONE ENCOUNTER 09/24/2024 12:12 PM MANAGER E [employer] - 09/24/2024 11:59 PM MANAGER E [employer] Hospital Encounter [facility] [address] [place] [address] Discharge Disposition: Discharge to home or self care 09/24/2024 11:00 AM MANAGER E [employer] Home Care Visit [address] [place] [address] Swathi Pepper RN SN HOME VISIT 09/21/2024 8:30 AM MANAGER E [employer]ERCE Home Care Visit [address] [place] [address] Angelica Hernandez, PT PT HOME VISIT 09/20/2024 12:00 PM MANAGER E [employer] Home Care Visit [address] [place] [address] Swathi Pepper RN SN HOME VISIT 09/19/2024 Home Care Visit [address] [place] [address] Swathi Pepper, NICKI CASE COMMUNICATION 09/19/2024 Home Care Visit [address] [place] [address] Edie Velez RN CASE COMMUNICATION 09/18/2024 3:00 PM MANAGER E [employer] Home Care Visit [address] [place] [address] Swathi Pepper RN SN HOME VISIT 09/15/2024 1:21 PM MANAGER E [employer] - 09/15/2024 11:59 PM MANAGER E [employer] [place] [address] Discharge Disposition: Discharge to home or self care 09/15/2024 10:30 AM MANAGER E [employer] Home Care Visit [address] [place] [address] Leia Almeida LPN SN HOME VISIT 09/14/2024 1:00 PM MANAGER E [employer] Home Care Visit [address] [place] [address] Angelica Hernandez, PT PT INITIAL EVALUATION 09/12/2024 Plan of Care Documentation [address] [place] [address] 09/12/2024 12:00 PM MANAGER E [employer] Home Care Visit [address] [place] [address] Swathi Pepper RN SN OASIS START OF CARE 09/10/2024 Telephone [facility] Medical Group Cardiology [address] [facility] [address], [place] [address] Meli Lee NP 09/10/2024 Orders Only [facility] Surgery [address] [place] [address] Truong Yañez NP 08/28/2024 5:28 AM MANAGER E COMM[employer]CE - 09/10/2024 1:56 PM MANAGER E [employer] Hospital Encounter [address] [address] Dusty Benral MD 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 (Primary Dx); Nonrheumatic mitral valve regurgitation Discharge Disposition: Discharge to home, home health skilled care 09/02/2024 Telephone [facility] Home Care Services [address] [place] [address] Roma Reza RN 08/28/2024 7:30 AM MANAGER E [employer]CE - 08/28/2024 1:00 PM MANAGER E [employer] Surgery [facility] Operating Room [address] [place] [address] Dusty Bernal MD CORONARY ARTERY BYPASS GRAFTX 4 WITH LEFT INTERNAL MAMMARY ARTERY, LEFT RADIAL ARTERY HARVEST AND RIGHT LEG SAPHENOUS ENDOVEIN HARVEST 08/28/2024 7:28 AM MANAGER E [employer]CE Anesthesia Event [facility] Operating Room [address] [place] [address] Jorge Dyson MD Ware, Melita C., NP 08/21/2024 Documentation [facility] Surgery [address] [place] [address] Truong Yañez NP from Last 3 Months Allergies Active Allergy Reactions Criticality Noted Date Comments Niacin Headache Low 07/10/2024 Dsiolhh-Qfj-Yxg Reductase Inhibitors Other (See comments) Low 07/10/2024 Certain statins caused muscle weakness Medications cholecalciferol, vitamin D3, 1,000 unit tablet,chewableI ndications:suppl ement Take 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/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 Active atorvastatin (LIPITOR) 40 mg tabletIndication s:hyperlipidemia Take 1 tablet (40 mg total) by mouth daily 90 tablet 3 07/02/20 24 Active cetirizine 10 mg capsuleIndicatio ns:Allergic Rhinitis 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 Active fluticasone propionate (FLONASE) 50 [...] week from 25 to 50mg, pt to black pickler new Rx 025 Discontin ued(Alter ramsey therapy) Active Problems Problem Noted Date Diagnosed Date Coronary artery disease (CAD) excluded Mitral valve insufficiency 08/06/2024 Coronary artery disease of n ative heart with stable angina pectoris 07/24/2024 Coronary artery disease of n ative artery of rampart heart with stable angina pectoris 06/28/2024 Social History Tobacco Use Types Packs/Day Years [...] materials from doctor or pharmacy Never 10/23/2024 [place] [employer] Answer Date Recorded In the past 12 months has e [employer], [employer], or water [employer] threatened to shut off services in your [...] often do you attend chur ch or church services? More than 4 times per year 08/30/2024 Do you belong to any clubs o r organizations such as hindu groups, unions, fraternal or athletic groups, or [...] any time in the past 12 m onths, were you homeless or living in a mcfp (including now)? No 08/30/2024 Personal Safety Answer [...] on file Sexual Orientation Not on file Last Filed Vital Signs Vital Sign Reading [...] 11/19/2024 9:10 AM CDT Plan of Treatment Not on file Medical Devices Implanted Type Area Assistant Portfolio Manager Device Identifier Shelf Expiration Date Model / Serial / Lot [employer] Chente-Moy stern-Orozco Imr Etlogix 28mm 3d Reduced Curvature [id number] - [id number] - [id number] Implanted:Qty: 1 on 08/28/2024 by Dusty Bernal MD at [facility] Other - see comments N/A: Heart [employer] 08/30/2028 [id number] / [id number] / [employer] Plate Bone Low Profile 6 Hole O Shape Sternum Ti 115.104.06 - [id number] Implanted:Qty: 1 on 08/28/2024 by Dusty Bernal MD at [facility] Plate N/A: Sternum [employer] 115.104. 06 / / [employer] Plate Bone Low Profile 6 Hole H Shape Sternum Ti 115.102.06 - [id number] Implanted:Qty: 1 on 08/28/2024 by Dusty Bernal MD at [facility] Plate N/A: Sternum [employer] 115.102. 06 / / [employer] Plate Bone Low Profile 4 Hole Box Sternum Ti 115.103.04 - [id number] Implanted:Qty: 1 on 08/28/2024 by Dusty Bernal MD at [facility] Plate N/A: Sternum [employer] 115.103. 04 / / [employer] Screw Bone Slf Drl Full Thread Locking 3.5x18mm Ti 100.035.18 - [id number] Implanted:Qty: 2 on 08/28/2024 by Dusty Bernal MD at [facility] Screw N/A: Sternum [employer] 100.035. 18 / / [employer] Screw Bone Slf Drl Full Thread Locking 3.5x16mm Ti 100.035.16 - [id number] Implanted:Qty: 14 on 08/28/2024 by Dusty Bernal MD at [facility] Screw N/A: Sternum [employer] 100.035. 16 / / Procedures Procedure Name Priority Date/Time Associated Diagnosis Comments XR CHEST PA LATERAL 2 VIEWS Schedule Routine, Read Routine (OP Routine) 09/27/2024 11:22 AM MANAGER E COMMERCE Pleural effusion on left DIFFERENTIAL AUTO Routine 09/24/2024 12:12 PM MANAGER E [employer]CE CBC WITH AUTO DIFFERENTIAL Routine 09/24/2024 12:12 PM MANAGER E [employer]CE CBC WITHOUT DIFFERENTIAL Routine 09/24/2024 12:12 PM MANAGER E [employer]CE EGFR Routine 09/15/2024 1:21 PM MANAGER E [employer]CE COMPREHENSIVE METABOLIC PANEL Routine 09/15/2024 1:21 PM MANAGER E [employer]CE XR CHEST PA LATERAL 2 VIEWS IP Routine 09/10/2024 7:37 AM MANAGER E [employer]ERCE EGFR Routine 09/10/2024 1:35 AM MANAGER E [employer]CE COMPREHENSIVE METABOLIC PANEL Routine 09/10/2024 1:35 AM MANAGER E [employer]CE CBC WITHOUT DIFFERENTIAL Routine 09/10/2024 1:35 AM MANAGER E [employer]ERCE XR CHEST 1 VIEW IP Routine 09/09/2024 6:00 AM MANAGER E COMMERCE EGFR Routine 09/09/2024 5:21 AM MANAGER E [employer]ERCE APTT Routine 09/09/2024 5:21 AM MANAGER E [employer]ERCE PROTIME-INR Routine 09/09/2024 5:21 AM MANAGER E [employer]CE COMPREHENSIVE METABOLIC PANEL Routine 09/09/2024 5:21 AM MANAGER E COMMERCE CBC WITHOUT DIFFERENTIAL Routine 09/09/2024 5:21 AM MANAGER E [employer]ERCE PEP THERAPY Routine 09/08/2024 10:00 PM MANAGER E [employer]ERCE PEP THERAPY Routine 09/08/2024 6:00 PM MANAGER E COMMERCE XR CHEST 1 VIEW IP Routine 09/08/2024 6:05 AM MANAGER E [employer]CE EGFR Routine 09/08/2024 3:16 AM MANAGER E [employer]CE MAGNESIUM Routine 09/08/2024 3:16 AM MANAGER E [employer]ERCE CBC WITHOUT DIFFERENTIAL Routine 09/08/2024 3:16 AM MANAGER E [employer]ERCE RENAL FUNCTION PANEL Routine 09/08/2024 3:16 AM MANAGER E [employer]ERCE XR CHEST 1 VIEW IP Routine 09/07/2024 3:27 PM MANAGER E COMMERCE XR CHEST 1 VIEW IP Routine 09/07/2024 6:20 AM MANAGER E COMMERCE EGFR Routine 09/07/2024 2:55 AM MANAGER E [employer]ERCE MAGNESIUM Routine 09/07/2024 2:55 AM MANAGER E COMMERCE CBC WITHOUT DIFFERENTIAL Routine 09/07/2024 2:55 AM MANAGER E COMMERCE RENAL FUNCTION PANEL Routine 09/07/2024 2:55 AM MANAGER E COMMERCE MRSA ONLY (STAPHYLOCOCCUS AUREUS) PCR Routine 09/06/2024 5:15 PM MANAGER E COMMERCE ECG 12-LEAD Routine 09/06/2024 10:04 AM MANAGER E COMMERCE XR CHEST 1 VIEW IP Routine 09/06/2024 6:12 AM MANAGER E [employer]ERCE HEPATIC FUNCTION PANEL Add-On 09/06/2024 3:21 AM MANAGER E [employer]ERCE EGFR Routine 09/06/2024 3:21 AM MANAGER E [employer]CE MAGNESIUM Routine 09/06/2024 3:21 AM MANAGER E [employer]ERCE CBC WITHOUT DIFFERENTIAL Routine 09/06/2024 3:21 AM MANAGER E [employer]ERCE RENAL FUNCTION PANEL Routine 09/06/2024 3:21 AM MANAGER E [employer]ERCE CHEST DRAINAGE W IMAGING RIGHT IP Routine 09/05/2024 2:50 PM MANAGER E COMMERCE XR CHEST 1 VIEW ED Urgent/IP Urgent 09/05/2024 2:47 PM MANAGER E COMMERCE AEROBIC AND ANAEROBIC CULTURE AND GRAM STAIN Routine 09/05/2024 2:[address] CHEST ABDOMEN PELVIS WO CONTRAST IP Routine 09/05/2024 11:49 AM MANAGER E COMMERCE PROTIME-INR STAT 09/05/2024 10:07 AM MANAGER E [employer]ERCE APTT STAT 09/05/2024 10:07 AM MANAGER E [employer]ERCE XR CHEST 1 VIEW IP Routine 09/05/2024 5:10 AM MANAGER E COMMERCE EGFR Routine 09/05/2024 1:46 AM MANAGER E [employer]ERCE MAGNESIUM Routine 09/05/2024 1:46 AM MANAGER E COMMERCE CBC WITHOUT DIFFERENTIAL Routine 09/05/2024 1:46 AM MANAGER E [employer]ERCE RENAL FUNCTION PANEL Routine 09/05/2024 1:46 AM MANAGER E COMMERCE URINALYSIS, MICROSCOPIC ONLY Routine 09/04/2024 4:50 PM MANAGER E [employer]ERCE URINE CULTURE Add-On 09/04/2024 4:50 PM MANAGER E [employer]ERCE URINALYSIS AND REFLEX TO MICROSCOPIC AND CULTURE Routine 09/04/2024 4:50 PM MANAGER E [employer]ERCE TRANSTHORACIC ECHO (TTE) COMPLETE W DOPPLER/CF WO CONTRAST Routine 09/04/2024 11:24 AM MANAGER E COMMERCE ECG 12-LEAD STAT 09/04/2024 9:45 AM MANAGER E COMMERCE XR CHEST 1 VIEW IP Routine 09/04/2024 5:53 AM MANAGER E COMMERCE HEPATIC FUNCTION PANEL Add-On 09/04/2024 2:47 AM MANAGER E COMMERCE EGFR Routine 09/04/2024 2:47 AM MANAGER E [employer]ERCE MAGNESIUM Routine 09/04/2024 2:47 AM MANAGER E [employer]ERCE RENAL FUNCTION PANEL Routine 09/04/2024 2:47 AM MANAGER E COMMERCE CBC WITHOUT DIFFERENTIAL Routine 09/04/2024 2:45 AM MANAGER E COMMERCE ECG 12-LEAD Routine 09/03/2024 4:06 PM MANAGER E COMMERCE XR CHEST PA LATERAL 2 VIEWS IP Routine 09/03/2024 9:51 AM MANAGER E COMMERCE POCT GLUCOSE DEVICE Routine 09/03/2024 7 :37 AM MANAGER E COMMERCE XR CHEST 1 VIEW IP Routine 09/03/2024 4:40 AM MANAGER E [employer]ERCE EGFR Routine 09/03/2024 4:37 AM MANAGER E [employer]ERCE MAGNESIUM Routine 09/03/2024 4:37 AM MANAGER E [employer]ERCE CBC WITHOUT DIFFERENTIAL Routine 09/03/2024 4:37 AM MANAGER E [employer]ERCE RENAL FUNCTION PANEL Routine 09/03/2024 4:37 AM MANAGER E COMMERCE POCT GLUCOSE DEVICE Routine 09/02/2024 9 :46 PM MANAGER E COMMERCE POCT GLUCOSE DEVICE Routine 09/02/2024 5 :45 PM MANAGER E COMMERCE POCT GLUCOSE DEVICE Routine 09/02/2024 12:43 PM MANAGER E COMMERCE XR KUB IP Routine 09/02/2024 9:52 AM MANAGER E COMMERCE POCT GLUCOSE DEVICE Routine 09/02/2024 8 :21 AM MANAGER E COMMERCE XR CHEST 1 VIEW IP Routine 09/02/2024 6:02 AM MANAGER E COMMERCE EGFR Routine 09/02/2024 4:08 AM MANAGER E COMMERCE MAGNESIUM Routine 09/02/2024 4:08 AM MANAGER E COMMERCE CBC WITHOUT DIFFERENTIAL Routine 09/02/2024 4:08 AM MANAGER E COMMERCE RENAL FUNCTION PANEL Routine 09/02/2024 4:08 AM MANAGER E COMMERCE POCT GLUCOSE DEVICE Routine 09/01/2024 10:07 PM MANAGER E COMMERCE POCT GLUCOSE DEVICE Routine 09/01/2024 4 :54 PM MANAGER E COMMERCE POCT GLUCOSE DEVICE Routine 09/01/2024 12:17 PM MANAGER E COMMERCE POCT GLUCOSE DEVICE Routine 09/01/2024 7 :45 AM MANAGER E COMMERCE XR CHEST 1 VIEW IP Routine 09/01/2024 5:47 AM MANAGER E COMMERCE EGFR Routine 09/01/2024 2:51 AM MANAGER E [employer]ERCE MAGNESIUM Routine 09/01/2024 2:51 AM MANAGER E COMMERCE CBC WITHOUT DIFFERENTIAL Routine 09/01/2024 2:51 AM MANAGER E [employer]ERCE RENAL FUNCTION PANEL Routine 09/01/2024 2:51 AM MANAGER E COMMERCE POCT GLUCOSE DEVICE Routine 09/01/2024 1 :56 AM MANAGER E COMMERCE POCT GLUCOSE DEVICE Routine 08/31/2024 9 :52 PM MANAGER E COMMERCE ECG 12-LEAD Routine 08/31/2024 7:16 PM MANAGER E [employer]ERCE EGFR STAT 08/31/2024 7:09 PM MANAGER E [employer]ERCE DIFFERENTIAL AUTO STAT 08/31/2024 7:0 9 PM MANAGER E [employer]ERCE PHOSPHORUS Routine 08/31/2024 7:09 PM MANAGER E [employer] MAGNESIUM Routine 08/31/2024 7:09 PM MANAGER E [employer]ERCE BASIC METABOLIC PANEL STAT 08/31/2024 7:09 PM MANAGER E [employer]ERCE CBC WITH AUTO DIFFERENTIAL STAT 08/31/2024 7:09 PM MANAGER E COMMERCE POCT GLUCOSE DEVICE Routine 08/31/2024 5 :36 PM MANAGER E COMMERCE POCT GLUCOSE DEVICE Routine 08/31/2024 12:15 PM MANAGER E COMMERCE XR KUB IP Routine 08/31/2024 8:05 AM MANAGER E COMMERCE POCT GLUCOSE DEVICE Routine 08/31/2024 7 :33 AM MANAGER E COMMERCE ECG 12-LEAD Routine 08/31/2024 7:23 AM MANAGER E [employer]ERCE CRITICAL CARE Routine 08/31/2024 6:47 AM MANAGER E COMMERCE 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 EGFR Routine 08/31/2024 4:50 AM MANAGER E COMMERCE OXYHEMOGLOBIN, CENTRAL VENOUS Routine 08/31/2024 4:50 AM MANAGER E COMMERCE MAGNESIUM Routine 08/31/2024 4:50 AM MANAGER E COMMERCE CBC WITHOUT DIFFERENTIAL Routine 08/31/2024 4:50 AM MANAGER E COMMERCE RENAL FUNCTION PANEL Routine 08/31/2024 4:50 AM MANAGER E COMMERCE XR CHEST 1 VIEW IP Routine 08/31/2024 4:37 AM MANAGER E COMMERCE POCT GLUCOSE DEVICE Routine 08/30/2024 8 :21 PM MANAGER E COMMERCE POCT GLUCOSE DEVICE Routine 08/30/2024 5 :26 PM MANAGER E COMMERCE POCT GLUCOSE DEVICE Routine 08/30/2024 12:21 PM MANAGER E COMMERCE POCT GLUCOSE DEVICE Routine 08/30/2024 8 :28 AM MANAGER E COMMERCE CRITICAL CARE Routine 08/30/2024 6:46 AM MANAGER E COMMERCE 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 XR CHEST 1 VIEW IP Routine 08/30/2024 3:48 AM MANAGER E COMMERCE EGFR Routine 08/30/2024 3:12 AM MANAGER E COMMERCE LACTATE Routine 08/30/2024 3:12 AM MANAGER E COMMERCE OXYHEMOGLOBIN, CENTRAL VENOUS Routine 08/30/2024 3:12 AM MANAGER E COMMERCE MAGNESIUM Routine 08/30/2024 3:12 AM MANAGER E COMMERCE CBC WITHOUT DIFFERENTIAL Routine 08/30/2024 3:12 AM MANAGER E [employer]ERCE RENAL FUNCTION PANEL Routine 08/30/2024 3:12 AM MANAGER E COMMERCE EGFR STAT 08/29/2024 11:45 PM MANAGER E [employer]ERCE DIFFERENTIAL AUTO STAT 08/29/2024 11:45 PM MANAGER E COMMERCE BASIC METABOLIC PANEL STAT 08/29/2024 11:45 PM MANAGER E COMMERCE CBC WITH AUTO DIFFERENTIAL STAT 08/29/2024 11:45 PM MANAGER E COMMERCE LACTATE Routine 08/29/2024 10:40 PM MANAGER E COMMERCE POCT GLUCOSE DEVICE Routine 08/29/2024 8 :35 PM MANAGER E COMMERCE POCT GLUCOSE DEVICE Routine 08/29/2024 4 :54 PM MANAGER E COMMERCE POCT GLUCOSE DEVICE Routine 08/29/2024 3 :22 PM MANAGER E COMMERCE EGFR Timed 08/29/2024 1:24 PM MANAGER E COMMERCE CALCIUM,IONIZED, WHOLE BLOOD Timed 08/29/2024 1:24 PM MANAGER E [employer]ERCE MAGNESIUM Timed 08/29/2024 1:24 PM MANAGER E [employer]ERCE RENAL FUNCTION PANEL Timed 08/29/2024 1:24 PM MANAGER E COMMERCE POCT GLUCOSE DEVICE Routine 08/29/2024 12:13 PM MANAGER E COMMERCE POCT GLUCOSE DEVICE Routine 08/29/2024 12:12 PM MANAGER E COMMERCE POCT GLUCOSE DEVICE Routine 08/29/2024 8 :46 AM MANAGER E COMMERCE ECG 12-LEAD STAT 08/29/2024 7:44 AM MANAGER E COMMERCE CRITICAL CARE Routine 08/29/2024 7:00 AM MANAGER E COMMERCE 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 POCT GLUCOSE DEVICE Routine 08/29/2024 6 :22 AM MANAGER E COMMERCE XR CHEST 1 VIEW IP Routine 08/29/2024 4:30 AM MANAGER E COMMERCE POCT GLUCOSE DEVICE Routine 08/29/2024 4 :17 AM MANAGER E COMMERCE EGFR Routine 08/29/2024 4:11 AM MANAGER E COMMERCE DIFFERENTIAL AUTO Routine 08/29/2024 4:1 1 AM MANAGER E COMMERCE LACTATE Routine 08/29/2024 4:11 AM MANAGER E COMMERCE OXYHEMOGLOBIN, CENTRAL VENOUS Routine 08/29/2024 4:11 AM MANAGER E COMMERCE MAGNESIUM Routine 08/29/2024 4:11 AM MANAGER E COMMERCE RENAL FUNCTION PANEL Routine 08/29/2024 4:11 AM MANAGER E COMMERCE THYROID FUNCTION CASCADE Routine 08/29/2024 4:11 AM MANAGER E COMMERCE CBC WITH AUTO DIFFERENTIAL Routine 08/29/2024 4:11 AM MANAGER E COMMERCE POCT GLUCOSE DEVICE Routine 08/29/2024 2 :59 AM MANAGER E COMMERCE POCT GLUCOSE DEVICE Routine 08/29/2024 1 :57 AM MANAGER E [employer]ERCE EXTUBATION Routine 08/29/2024 12:59 AM MANAGER E COMMERCE POCT GLUCOSE DEVICE Routine 08/29/2024 12:32 AM MANAGER E COMMERCE CALCIUM,IONIZED, WHOLE BLOOD Routine 08/29/2024 12:28 AM MANAGER E COMMERCE POTASSIUM, WHOLE BLOOD STAT 08/29/2024 12:28 AM MANAGER E COMMERCE BLOOD GAS, ARTERIAL STAT 08/29/2024 12:28 AM MANAGER E COMMERCE POCT GLUCOSE DEVICE Routine 08/28/2024 11:43 PM MANAGER E COMMERCE LACTATE STAT 08/28/2024 11:02 PM MANAGER E [employer]ERCE POCT GLUCOSE DEVICE Routine 08/28/2024 10:43 PM MANAGER E COMMERCE POTASSIUM, WHOLE BLOOD Timed 08/28/2024 9:44 PM MANAGER E COMMERCE BLOOD GAS, ARTERIAL Timed 08/28/2024 9 :44 PM MANAGER E COMMERCE POCT GLUCOSE DEVICE Routine 08/28/2024 9 :41 PM MANAGER E COMMERCE POCT GLUCOSE DEVICE Routine 08/28/2024 8 :35 PM MANAGER E [employer]ERCE POCT GLUCOSE DEVICE Routine 08/28/2024 7 :32 PM MANAGER E COMMERCE CRITICAL CARE Routine 08/28/2024 7:29 PM MANAGER E [employer]ERCE 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 POCT GLUCOSE DEVICE Routine 08/28/2024 6 :31 PM MANAGER E COMMERCE EGFR STAT 08/28/2024 6:30 PM MANAGER E COMMERCE CALCIUM,IONIZED, WHOLE BLOOD STAT 08/28/2024 6:30 PM MANAGER E COMMERCE CBC WITHOUT DIFFERENTIAL Timed 08/28/2024 6:30 PM MANAGER E COMMERCE BLOOD GAS, ARTERIAL Timed 08/28/2024 6 :30 PM MANAGER E [employer]ERCE BASIC METABOLIC PANEL STAT 08/28/2024 6:30 PM MANAGER E COMMERCE POCT GLUCOSE DEVICE Routine 08/28/2024 6 :00 PM MANAGER E [employer]ERCE POCT GLUCOSE DEVICE Routine 08/28/2024 4 :59 PM MANAGER E COMMERCE XR CHEST 1 VIEW IP Routine 08/28/2024 4:29 PM MANAGER E [employer]ERCE CRITICAL CARE Routine 08/28/2024 4:24 PM MANAGER E [employer]ERCE 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 Nonrheumatic mitral valve regurgitation POCT GLUCOSE DEVICE Routine 08/28/2024 4 :04 PM MANAGER E COMMERCE XR CHEST 1 VIEW Critical/Life-T hreatening 08/28/2024 3:37 PM MANAGER E [employer]ERCE POCT GLUCOSE DEVICE Routine 08/28/2024 3 :36 PM MANAGER E [employer]ERCE EGFR STAT 08/28/2024 3:24 PM MANAGER E COMMERCE PHOSPHORUS Add-On 08/28/2024 3:24 PM MANAGER E COMMERCE BLOOD GAS, ARTERIAL STAT 08/28/2024 3 :24 PM MANAGER E COMMERCE BASIC METABOLIC PANEL STAT 08/28/2024 3:24 PM MANAGER E [employer]ERCE MAGNESIUM STAT 08/28/2024 3:24 PM MANAGER E [employer]ERCE APTT STAT 08/28/2024 3:24 PM MANAGER E [employer]ERCE PROTIME-INR STAT 08/28/2024 3:24 PM MANAGER E [employer]ERCE CALCIUM,IONIZED, WHOLE BLOOD STAT 08/28/2024 3:24 PM MANAGER E [employer]ERCE CBC WITHOUT DIFFERENTIAL STAT 08/28/2024 3:24 PM MANAGER E [employer]ERCE POCT GLUCOSE DEVICE Routine 08/28/2024 2 :59 PM MANAGER E [employer]ERCE POC BLOOD GAS AND CHEMISTRIES, ARTERIAL Routine 08/28/2024 2:00 PM MANAGER E [employer] POCT ACTIVATED CLOTTING TIME, HIGH RANGE Routine 08/28/2024 1:57 PM MANAGER E [employer] TRANSFUSE RED BLOOD CELLS Timed 08/28/2024 1:33 PM MANAGER E [employer] POC BLOOD GAS AND CHEMISTRIES, ARTERIAL Routine 08/28/2024 1:20 PM MANAGER E [employer] POCT ACTIVATED CLOTTING TIME, HIGH RANGE Routine 08/28/2024 1:18 PM MANAGER E [employer] POC BLOOD GAS AND CHEMISTRIES, ARTERIAL Routine 08/28/2024 12:50 PM MANAGER E [employer] POCT ACTIVATED CLOTTING TIME, HIGH RANGE Routine 08/28/2024 12:48 PM MANAGER E [employer] PLATELET COUNT STAT 08/28/2024 12:27 PM MANAGER E [employer] POC BLOOD GAS AND CHEMISTRIES, ARTERIAL Routine 08/28/2024 12:21 PM MANAGER E [employer] POCT ACTIVATED CLOTTING TIME, HIGH RANGE Routine 08/28/2024 12:18 PM MANAGER E COMMERCE POC BLOOD GAS AND CHEMISTRIES, ARTERIAL Routine 08/28/2024 11:41 AM MANAGER E COMMERCE POCT ACTIVATED CLOTTING TIME, HIGH RANGE Routine 08/28/2024 11:39 AM MANAGER E COMMERCE POC BLOOD GAS AND CHEMISTRIES, ARTERIAL Routine 08/28/2024 11:10 AM MANAGER E COMMERCE POCT ACTIVATED CLOTTING TIME, HIGH RANGE Routine 08/28/2024 11:07 AM MANAGER E COMMERCE POC BLOOD GAS AND CHEMISTRIES, ARTERIAL Routine 08/28/2024 10:39 AM MANAGER E COMMERCE POCT ACTIVATED CLOTTING TIME, HIGH RANGE Routine 08/28/2024 10:37 AM MANAGER E COMMERCE POC BLOOD GAS AND CHEMISTRIES, ARTERIAL Routine 08/28/2024 9:52 AM MANAGER E COMMERCE POCT ACTIVATED CLOTTING TIME, HIGH RANGE Routine 08/28/2024 9:50 AM MANAGER E COMMERCE POC BLOOD GAS AND CHEMISTRIES, ARTERIAL Routine 08/28/2024 8:51 AM MANAGER E COMMERCE POCT ACTIVATED CLOTTING TIME, HIGH RANGE Routine 08/28/2024 8:51 AM MANAGER E COMMERCE PREPARE RBC STAT 08/28/2024 8:02 AM MANAGER E COMMERCE ANESTHESIA CENTRAL VENOUS LINE PLACEMENT Routine 08/28/2024 7:59 AM MANAGER E COMMERCE ANESTHESIA CENTRAL VENOUS LINE PLACEMENT Routine 08/28/2024 7:59 AM MANAGER E COMMERCE AR AN ELECTIVE ENDOTRACHEAL AIRWAY Routine 08/28/2024 7:59 AM MANAGER E COMMERCE POC BLOOD GAS AND CHEMISTRIES, ARTERIAL Routine 08/28/2024 7:56 AM MANAGER E COMMERCE POCT ACTIVATED CLOTTING TIME, HIGH RANGE Routine 08/28/2024 7:54 AM MANAGER E COMMERCE ANESTHESIA ARTERIAL LINE PLACEMENT Routine 08/28/2024 7:28 AM MANAGER E COMMERCE REPAIR MITRAL VALVE 08/28/2024 7 :28 AM MANAGER E COMMERCE 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, unspecified vessel or lesion type CORONARY ARTERY BYPASS GRAFT - INTERNAL MAMMARY/RADIAL ARTERY/SAPHENOUS VEIN GRAFT - LEG 08/28/2024 7:28 AM MANAGER E COMMERCE 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 ATELECTASIS LEFT BASE Electronically signed by: Yimi Bond M.D. Narrative 09/27/2024 11:25 AM MANAGER E COMMERCE EXAMINATION: XR CHEST PA LATERAL 2 VIEWS [...] by: Yimi Bond M.D. us Truong Yañez TECHNICAL PROFESSIONAL IMG XR PROCEDURES Final Res ult * (ABNORMAL) Differential, auto (09/24/2024 12:12 PM MANAGER E COMMERCE) Neutrophil abs 7.2(H) 1.5 - 6.5 K/cumm Imm gran abs 0.1 0.0 - 0.1 K/cumm [facility] Lymphocyte abs 1.5 0.8 - 3.3 K/cumm [facility] Monocyte abs 0.6 0.2 - 0.8 K/cumm [facility] Eosinophil abs 0.5 0.0 - 0.5 K/cumm [facility] Basophil abs 0.1 0.0 - 0.1 K/cumm [facility] Neutrophil pct 72.4 % [facility] Comment: Interpretive Data Percent cell count reference ranges are not reported, since discordance with absolute values may lead to misinterpretation of CBC data. Current Interpretive Data was last revised on 2017. Imm gran pct 0.8 % [facility] Comment: Interpretive Data Percent cell count reference ranges are not reported, since discordance with absolute values may lead to misinterpretation of CBC data. Current Interpretive Data was last revised on 2017. Lymphocyte pct 15.3 % [facility] Comment: Interpretive Data Percent cell count reference ranges are not reported, since discordance with absolute values may lead to misinterpretation of CBC data. Current Interpretive Data was last revised on 2017. Monocyte pct 6.2 % [facility] Comment: Interpretive Data Percent cell count reference ranges are not reported, since discordance with absolute values may lead to misinterpretation of CBC data. Current Interpretive Data was last revised on 2017. Eosinophil pct 4.7 % [facility] Comment: Interpretive Data Percent cell count reference ranges are not reported, since discordance with absolute values may lead to misinterpretation of CBC data. Current Interpretive Data was last revised on 2017. Basophil pct 0.6 % [facility] Comment: Interpretive Data Percent cell count reference ranges are not reported, since discordance with absolute values may lead to misinterpretation of CBC data. Current Interpretive Data was last revised on 2017. Blood 09/24/2024 12:1 2 PM MANAGER E [employer]CE 09/24/2024 5:07 PM MANAGER E COMMERCE us Elidia Bermudez TECHNICAL PROFESSIONAL LAB BLOOD ORDERABLES Randa arnold Result [facility] [place] [address] * (ABNORMAL) CBC with auto differential (09/24/2024 12:12 PM MANAGER E COMMERCE) WBC 10.0(H) 3.8 - 9.9 K/cumm Hgb 10.3(L) 11.9 - 15.5 g/dL [facility] Hct 31.7(L) 35.6 - 45.5 % [facility] Plt 384 150 - 400 K/cumm [facility] MPV 10.3 9.1 - 12.[address] [facility] RBC 3.55(L) 3.90 - 5.20 M/cumm [facility] MCV 89.3 81.3 - 96.[address] [facility] MCH 29.0 27.1 - 33.[address] [facility] MCHC 32.5 32.3 - 35.7 g/dL [facility] RDW CV 14.6 11.1 - 14.9 % [facility] RDW SD 47.8 35.7 - 48.[address] [facility] NRBC abs 0.00 0.00 - 0.01 K/cumm [facility] Blood 09/24/2024 12:1 2 PM MANAGER E [employer]ERCE 09/24/2024 5:07 PM MANAGER E COMMERCE us Elidia Bermudez TECHNICAL PROFESSIONAL LAB BLOOD ORDERABLES Randa arnold Result [facility] [place] [address] * CBC without differential (09/24/2024 12:12 PM MANAGER E COMMERCE) WBC See Comment 3.8 - 9.9 Comment:Credited, duplicate test. Hgb See Comment 11.9 - 15.[address] [facility] Comment:Credited, duplicate test. Hct See Comment 35.6 - 45.[address] [facility] Comment:Credited, duplicate test. Plt See Comment 150 - [address] [facility] Comment:Credited, duplicate test. MPV See Comment 9.1 - 12.[address] [facility] Comment:Credited, duplicate test. RBC See Comment 3.90 - 5.[address] [facility] Comment:Credited, duplicate test. MCV See Comment 81.3 - 96.[address] [facility] Comment:Credited, duplicate test. MCH See Comment 27.1 - 33.[address] [facility] Comment:Credited, duplicate test. MCHC See Comment 32.3 - 35.[address] [facility] Comment:Credited, duplicate test. RDW CV See Comment 11.1 - 14.[address] [facility] Comment:Credited, duplicate test. RDW SD See Comment 35.7 - 48.[address] [facility] Comment:Credited, duplicate test. NRBC abs See Comment 0.00 - 0.01 K/cumm [facility] Comment:Credited, duplicate test. Blood 09/24/2024 12:1 2 PM MANAGER E COMMERCE 09/24/2024 4:48 PM MANAGER E COMMERCE us Elidia Bermudez NP LAB BLOOD ORDERABLES Edit ed Result - Final [facility] [place] [address] * eGFR (09/15/2024 1:21 PM MANAGER E COMMERCE) eGFR 73 >=60 mL/min/1. 73 m2 Comment: [...] last reviewed 2021. Blood 09/15/2024 1:21 PM MANAGER E COMMERCE 09/15/2024 1:51 PM MANAGER E [employer]ERCE us Dusty Bernal MD LAB BLOOD ORDERABLES Final Res ult [facility] [place] [address] * (ABNORMAL) Comprehensive metabolic panel (09/15/2024 1:21 PM MANAGER E COMMERCE) Sodium 132(L) 135 - 145 mmol/L Potassium, pl 4.2 3.3 - 4.9 mmol/L [facility] Chloride 99 97 - 110 mmol/L [facility] CO2 19(L) 22 - 32 mmol/L [facility] Anion gap 14 2 - 15 mmol/L [facility] BUN 23 6 - 25 mg/dL [facility] Creatinine 0.83 0.60 - 1.10 mg/dL [facility] Glucose 104 70 - 199 mg/dL [facility] Comment: Interpretive Data Fasting glucose >/= [...] 2022. Calcium 8.5 8.5 - 10.3 mg/dL [facility] Bilirubin, total 0.4 0.1 - 1.2 mg/dL [facility] Protein, pl 6.6 6.5 - 8.5 g/dL [facility] Albumin 3.5 3.5 - 5.0 g/dL [facility] Alk phos 137(H) 40 - 130 Units/L [facility] ALT 39 7 - 45 Units/L [facility] AST 26 10 - 45 Units/L [facility] Blood 09/15/2024 1:21 PM MANAGER E [employer]CE 09/15/2024 1:24 PM MANAGER E COMMERCE Dusty Bernal MD LAB BLOOD ORDERABLES Final Res ult [facility] Department [place] [address] * XR Chest PA Lateral 2 Views (09/10/2024 7:37 AM MANAGER E COMMERCE) Anatomical Region Laterality Modality Body, Chest N/A Computed Radiogr aphy 09/10/2024 7:39 AM MANAGER E COMM[employer]CE Impressions 09/10/2024 7:39 AM MANAGER E COMMERCE DECREASED FAILURE. LEFT PLEURAL FLUID Electronically signed by: Yimi Bond M.D. Narrative 09/10/2024 7:39 AM MANAGER E COMMERCE EXAMINATION: XR CHEST PA LATERAL 2 VIEWS [...] signed by: Yimi Bond M.D. Truong Yañez TECHNICAL PROFESSIONAL IMG XR PROCEDURES Final Res ult * eGFR (09/10/2024 1:35 AM MANAGER E COMMERCE) eGFR >90 >=60 mL/min/1. 73 m2 Comment: [...] data was last reviewed 2021. Blood 09/10/2024 1:35 AM MANAGER E COMMERCE 09/10/2024 3:14 AM MANAGER E COMMERCE us Truong Yañez TECHNICAL PROFESSIONAL LAB BLOOD ORDERABLES Final Result Performing Organization Address City/[facility]/ZIP Co de Phone Number [facility] [address] [place] [address] * (ABNORMAL) CBC without differential (09/10/2024 1:35 AM MANAGER E COMMERCE) WBC 18.3(H) 3.8 - 9.9 K/cumm Hgb [...] K/cumm [facility] Blood 09/10/2024 1:35 AM MANAGER E COMMERCE 09/10/2024 3:15 AM MANAGER E COMMERCE Pily Escudero TECHNICAL PROFESSIONAL LAB BLOOD ORDERABLES Fin al Result [facility] [address] [email or web address] [address] * (ABNORMAL) Comprehensive metabolic panel (09/10/2024 1:35 AM MANAGER E COMMERCE) Sodium 139 135 - 145 mmol/L Potassium, [...] Units/L [facility] Blood 09/10/2024 1:35 AM MANAGER E COMMERCE 09/10/2024 3:14 AM MANAGER E COMMERCE us Truong Yañez TECHNICAL PROFESSIONAL LAB BLOOD ORDERABLES Final Result [facility] [address] [place] [address] * XR Chest 1 View - Portable - in AM (09/09/2024 6:00 AM MANAGER E COMMERCE) Anatomical Region Laterality Modality Body, Chest N/A Computed Radiogr aphy 09/09/2024 9:50 AM MANAGER E COMMERCE Impressions 09/09/2024 9:50 AM MANAGER E COMMERCE Interval perihilar interstitial opacities/edema with persistent left retrocardiac consolidative atelectasis and small effusion. Electronically signed by: Grace Meza M.D. Narrative 09/09/2024 9:50 AM MANAGER E COMMERCE Examination: XR CHEST 1 VIEW Date: 09/09/2024 [...] Final Result * eGFR (09/09/2024 5:21 AM MANAGER E COMMERCE) eGFR >90 >=60 mL/min/1. 73 m2 Comment: [...] Inclusion of Race in Diagnosing Kidney Disease, BASSEM 2020). The CKD-EPI equation should not be used for patients with unstable renal function and has not been validated in children and those over 70. Current interpretive data was last reviewed 2021. Blood 09/09/2024 5:21 AM MANAGER E COMMERCE 09/09/2024 6:18 AM MANAGER E COMMERCE Truong Yañez TECHNICAL PROFESSIONAL LAB BLOOD ORDERABLES Final Result Performing Organization Address [facility] de Phone Number [facility] [address] [email or web address] [address] * (ABNORMAL) aPTT (09/09/2024 5:21 AM MANAGER E COMMERCE) aPTT 25(L) 28 - 38 sec Comment: Interpretive Data Heparin therapeutic range: 66.0 - 100.0 seconds. Range based on correlation with therapeutic heparin activity range of 0.3 - 0.7 Units/mL. Current interpretive data was last revised on 2023. Blood 09/09/2024 5:21 AM MANAGER E COMMERCE 09/09/2024 6:19 AM MANAGER E COMMERCE Truong Yañez TECHNICAL PROFESSIONAL LAB BLOOD ORDERABLES Final Result Performing Organization Address [facility] de Phone Number [facility] [address] [facility] [email or web address] [address] * Protime-INR (09/09/2024 5:21 AM MANAGER E COMMERCE) PT 12.9 9.7 - 13.0 sec INR 1.19 0.90 - 1.20 [facility] Comment: Interpretive data Oral anticoagulant therapeutic ranges: Venous thromboembolism prophylaxis or treatment: 2.0-3.0 CARDIOLOGY Standard range: 2.0-3.0 High-intensity range: 2.5-3.5 Refer to indication-specific guidelines for appropriate target ranges for prosthetic heart valve replacement. Current interpretive data was last revised on 2019. Blood 09/09/2024 5:21 AM MANAGER E COMMERCE 09/09/2024 6:19 AM MANAGER E COMMERCE Truong Yañez TECHNICAL PROFESSIONAL LAB BLOOD ORDERABLES Final Result [facility] [address] Department [email or web address] [address] * (ABNORMAL) CBC without differential (09/09/2024 5:21 AM MANAGER E COMMERCE) WBC 15.5(H) 3.8 - 9.9 K/cumm Hgb [...] K/cumm [facility] Blood 09/09/2024 5:21 AM MANAGER E COMMERCE 09/09/2024 6:19 AM MANAGER E COMMERCE Pily Escudero TECHNICAL PROFESSIONAL LAB BLOOD ORDERABLES Fin al Result [facility] [address] [email or web address] [address] * (ABNORMAL) Comprehensive metabolic panel (09/09/2024 5:21 AM MANAGER E COMMERCE) Sodium 140 135 - 145 mmol/L Potassium, [...] Units/L [facility] Blood 09/09/2024 5:21 AM MANAGER E COMMERCE 09/09/2024 6:18 AM MANAGER E COMMERCE us Truong Yañez NP LAB BLOOD ORDERABLES Final Result [facility] [address] Department [place] [address] * XR Chest 1 View - Portable - in AM (09/08/2024 6:05 AM MANAGER E COMMERCE) Anatomical Region Laterality Modality Body, Chest N/A Computed Radiogr aphy 09/08/2024 9:29 AM MANAGER E COMMERCE Impressions 09/08/2024 9:29 AM MANAGER E COMMERCE Postop changes with increasing left retrocardiac atelectasis and small effusion. Electronically signed by: Grace Meza M.D. Narrative 09/08/2024 9:29 AM MANAGER E COMMERCE Examination: XR CHEST 1 VIEW Date: 09/08/2024 [...] by: Grace Meza M.D. Dusty Bernal MD IM XR PROCEDURES Final Result * eGFR (09/08/2024 3:16 AM MANAGER E COMMERCE) eGFR >90 >=60 mL/min/1. 73 m2 Comment: [...] last reviewed 2021. Blood 09/08/2024 3:16 AM MANAGER E COMMERCE 09/08/2024 3:20 AM MANAGER E COMMERCE Pily Escudero TECHNICAL PROFESSIONAL LAB BLOOD ORDERABLES Fin al Result Performing Organization Address [facility] Co de Phone Number [facility] [address] [place] [address] * (ABNORMAL) CBC without differential (09/08/2024 3:16 AM MANAGER E COMMERCE) WBC 17.0(H) 3.8 - 9.9 K/cumm Hgb 9.8(L) 11.9 - 15.5 g/dL [facility] Hct 31.2(L) 35.6 - 45.5 % [facility] Plt 397 150 - 400 K/cumm [facility] MPV 9.9 9.1 - 12.3 fL [facility] RBC 3.39(L) 3.90 - 5.20 M/cumm [facility] MCV 92.0 81.3 - 96.4 fL [facility] MCH 28.9 27.1 - 33.3 pg [facility] MCHC 31.4(L) 32.3 - 35.7 g/dL [facility] RDW CV 15.4(H) 11.1 - 14.9 % [facility] RDW SD 50.4(H) 35.7 - 48.1 fL [facility] NRBC abs 0.00 0.00 - 0.01 K/cumm [facility] Blood 09/08/2024 3:16 AM MANAGER E COMMERCE 09/08/2024 3:20 AM MANAGER E COMMERCE Pily Escudero TECHNICAL PROFESSIONAL LAB BLOOD ORDERABLES Fin al Result Performing Organization Address [facility] Co de Phone Number [facility] [address] Department [email or web address] [place], [place] [id number] * Magnesium (09/08/2024 3:16 AM MANAGER E COMMERCE) Pathologist [facility] [place] Magnesium 2.1 1.4 - 2.5 mg/dL Blood 09/08/2024 3:16 AM MANAGER E COMMERCE 09/08/2024 3:20 AM MANAGER E COMMERCE Pily Escudero TECHNICAL PROFESSIONAL LAB BLOOD ORDERABLES Fin al Result Performing Organization Address [facility] Co de Phone Number [facility] [address] Department [place] [address] * (ABNORMAL) Renal function panel (09/08/2024 3:16 AM MANAGER E COMMERCE) Pathologist [facility] [place] Sodium 136 135 - 145 mmol/L Potassium, pl 3.6 3.3 - 4.9 mmol/L [facility] Chloride 98 97 - 110 mmol/L [facility] CO2 31 22 - 32 mmol/L [facility] Anion gap 7 2 - 15 mmol/L [facility] BUN 23 6 - 25 mg/dL [facility] Creatinine 0.59(L) 0.60 - 1.10 mg/dL [facility] Glucose 115 70 - 199 mg/dL [facility] Comment: Interpretive Data Fasting glucose >/= [...] 2.4 2.3 - 4.5 mg/dL [facility] Albumin 3.5 3.5 - 5.0 g/dL [facility] Blood 09/08/2024 3:16 AM MANAGER E COMMERCE 09/08/2024 3:20 AM MANAGER E COMMERCE Pily Escudero NP LAB BLOOD ORDERABLES Fin al Result Performing Organization Address [facility]/ZIP Co de Phone Number [facility] [address] [facility] [place] [address] * XR Chest 1 View (09/07/2024 3:27 PM MANAGER E COMMERCE) Anatomical Region Laterality Modality Body, Chest N/A Computed Radiogr aphy 09/07/2024 3:35 PM MANAGER E COMMERCE Impressions 09/07/2024 3:35 PM MANAGER E COMMERCE FINDINGS/IMPRESSION: Poststernotomy changes are noted. No definitive pneumothorax visualized. No pleural effusion. Mild pulmonary vascular congestion. No acute osseous abnormality. Electronically signed by: Deon Moreira II, D.O. Narrative 09/07/2024 3:35 PM MANAGER E COMMERCE EXAMINATION: XR CHEST 1 VIEW DATE: 09/07/2024 [...] by: Deon Moreira II, D.O. Sushma Ware TECHNICAL PROFESSIONAL IMG XR PROCEDURES Final Re sult * XR Chest 1 View - Portable - in AM (09/07/2024 6:20 AM MANAGER E COMMERCE) Anatomical Region Laterality Modality Body, Chest N/A Computed Radiogr aphy 09/07/2024 9:54 AM MANAGER E COMMERCE Impressions 09/07/2024 9:54 AM MANAGER E COMMERCE Findings/impression: Pigtail thoracostomy tube unchanged in position. Previously visualized right pneumothorax not definitively visualized on this examination. Borderline cardiomegaly, aortic valvuloplasty, and poststernotomy changes. Minimal pulmonary vascular congestion. Similar platelike opacity in the left lower lobe with elevation of the left hemidiaphragm. Electronically signed by: Deon Moreira II, D.O. Narrative 09/07/2024 9:54 AM MANAGER E COMMERCE EXAMINATION: XR CHEST 1 VIEW DATE: 09/07/2024 [...] Final Result * eGFR (09/07/2024 2:55 AM MANAGER E COMMERCE) eGFR >90 >=60 mL/min/1. 73 m2 Comment: [...] last reviewed 2021. Blood 09/07/2024 2:55 AM MANAGER E COMMERCE 09/07/2024 3:38 AM MANAGER E COMMERCE Pily Escudero TECHNICAL PROFESSIONAL LAB BLOOD ORDERABLES Fin al Result Performing Organization Address City/[facility] Co de Phone Number [facility] [address] Department [email or web address] [address] * (ABNORMAL) CBC without differential (09/07/2024 2:55 AM MANAGER E COMMERCE) WBC 16.0(H) 3.8 - 9.9 K/cumm Hgb 9.7(L) 11.9 - 15.5 g/dL [facility] Hct 31.2(L) 35.6 - 45.5 % [facility] Plt 374 150 - 400 K/cumm [facility] MPV 10.4 9.1 - 12.3 fL [facility] RBC 3.34(L) 3.90 - 5.20 M/cumm [facility] MCV 93.4 81.3 - 96.4 fL [facility] CH MCH 29.0 27.1 - 33.3 pg [facility] MCHC 31.1(L) 32.3 - 35.7 g/dL [facility] RDW CV 15.2(H) 11.1 - 14.9 % [facility] RDW SD 51.0(H) 35.7 - 48.1 fL [facility] CH NRBC abs 0.00 0.00 - 0.01 K/cumm [facility] Blood 09/07/2024 2:55 AM MANAGER E COMMERCE 09/07/2024 3:41 AM MANAGER E COMMERCE us Pily Escudero TECHNICAL PROFESSIONAL LAB BLOOD ORDERABLES Fin al Result Performing Organization Address [facility] Co de Phone Number [facility] [address] [place] [address] * Magnesium (09/07/2024 2:55 AM MANAGER E COMMERCE) Magnesium 2.1 1.4 - 2.5 mg/dL Blood 09/07/2024 2:55 AM MANAGER E COMMERCE 09/07/2024 3:38 AM MANAGER E COMMERCE Pily Escudero TECHNICAL PROFESSIONAL LAB BLOOD ORDERABLES Fin al Result Performing Organization Address City/[facility]/ZIP Co de Phone Number [facility] [address] Department [place] [address] * (ABNORMAL) Renal function panel (09/07/2024 2:55 AM MANAGER E COMMERCE) Pathologist [facility] [place] Sodium 140 135 - 145 mmol/L Potassium, pl 3.9 3.3 - 4.9 mmol/L [facility] Chloride 99 97 - 110 mmol/L [facility] CO2 29 22 - 32 mmol/L [facility] Anion gap 12 2 - 15 mmol/L [facility] BUN 27(H) 6 - 25 mg/dL [facility] Creatinine 0.63 0.60 - 1.10 mg/dL [facility] Glucose 128 70 - 199 mg/dL [facility] Comment: Interpretive [...] 2022. Calcium 8.6 8.5 - 10.3 mg/dL [facility] Phosphorus, pl 2.4 2.3 - 4.5 mg/dL [facility] Albumin 3.3(L) 3.5 - 5.0 g/dL [facility] Blood 09/07/2024 2:55 AM MANAGER E COMMERCE 09/07/2024 3:38 AM MANAGER E COMMERCE us Pily Escudero NP LAB BLOOD ORDERABLES Fin al Result Performing Organization Address [facility] Co de Phone Number [facility] [address] [place] [address] * MRSA Only (Staphylococcus aureus) PCR Nasal (09/06/2024 5:15 PM MANAGER E COMMERCE) [facility] PCR Scrn, Methicillin resistant Staphylococcus aureus (MRSA) Not Detected Not Detected [facility] Comment: Interpretive Data Testing performed using Nucleic Acid Amplification with the [employer] Xpert MRSA NxG Assay. This assay detects target DNA from mecA, mecC and the SCCmec insertion site of Staphylococcus aureus using Real-Time PCR and has been cleared by the FDA. Performance characteristics have been verified by the [facility]. Current Interpretive Data was last revised on 2022 Nasal 09/06/2024 5:15 PM MANAGER E COMMERCE 09/06/2024 5:32 PM MANAGER E COMMERCE Sushma Ware NP LAB MICROBIOLOGY - GENERAL ORDERABLES Final Result Performing Organization Address City/[facility] Co de Phone Number [facility] [address] Department of Laboratories [place] [phone] [facility] * ECG 12 lead (09/06/2024 10:04 AM MANAGER E COMMERCE) 09/06/2024 10:0 4 AM MANAGER E COMMERCE Narrative [facility] - 09/07/2024 12:43 PM MANAGER E COMMERCE Vent Rate: 58 bpm RR Interval: 1022 msec AR Interval: 0 msec QRS Duration: 188 msec QT Interval: 531 msec QTC Interval: 528 msec P-R-T Casanova: 0 - -31 - 56 degrees IMPRESSION: V PACED RHYTHM Electronically Signed By: Brendan Pool MD, [facility] Sushma Ware TECHNICAL PROFESSIONAL ECG ORDERABLES Edited Res ult - Final Performing Organization Address [facility] Co de Phone Number [facility] [employer] [facility] * XR Chest 1 View - Portable - in AM (09/06/2024 6:12 AM MANAGER E [employer]ER[employer]) Anatomical Region Laterality Modality Body, Chest N/A Computed Radiogr aphy 09/06/2024 10:3 6 AM MANA[employer] Impressions 09/06/2024 10:36 AM [employer]NA[employer] Decrease is a small right pneumothorax. Persistent left retrocardiac atelectasis and small effusion. Electronically signed by: Grace Meza M.D. Narrative 09/06/2024 10:36 AM [employer]NA[employer] Examination: XR CHEST 1 VIEW Date: 09/06/2024 [...] Final Result * eGFR (09/06/2024 3:21 AM MANAGER E [employer]) eGFR >90 >=60 mL/min/1. 73 m2 Comment: [...] last reviewed 2021. Blood 09/06/2024 3:21 AM MANAGER E [employer] 09/06/2024 3:32 AM [employer] Pily Escudero TECHNICAL PROFESSIONAL LAB BLOOD ORDERABLES Fin al Result Performing Organization Address [facility] de Phone Number [employer] [employer] [address] [email or web address] [address] * (ABNORMAL) CBC without differential (09/06/2024 3:21 AM MANAGER E COMMERCE) WBC 17.1(H) 3.8 - 9.9 K/cumm Hgb [...] K/cumm [facility]ER CH Blood 09/06/2024 3:21 AM MANAGER E COMMERCE 09/06/2024 3:31 AM MANAGER E COMMERCE Pily Escudero TECHNICAL PROFESSIONAL LAB BLOOD ORDERABLES Fin al Result Performing Organization Address [facility] Co de Phone Number AZAM XIE [address] [email or web address] [place], [place] [id number] * Magnesium (09/06/2024 3:21 AM MANAGER E COMMERCE) Magnesium 2.1 1.4 - 2.5 mg/dL Blood 09/06/2024 3:21 AM MANAGER E COMMERCE 09/06/2024 3:32 AM MANAGER E COMMERCE Pily Escudero TECHNICAL PROFESSIONAL LAB BLOOD ORDERABLES Fin al Result Performing Organization Address [facility] [place] [address] [address] [place] [address] * (ABNORMAL) Hepatic function panel (09/06/2024 3:21 AM MANAGER E COMMERCE) Bilirubin, total 0.6 0.1 - 1.2 mg/dL Bilirubin, direct 0.2 0.1 - 0.3 mg/dL [facility]ERNER CH Protein, pl 5.5(L) 6.5 - 8.5 g/dL [facility] CH Albumin 3.2(L) 3.5 - 5.0 g/dL [facility] CH Alk phos 147(H) 40 - 130 Units/L [facility] CH ALT 184(H) 7 - 45 Units/L [facility] CH AST 52(H) 10 - 45 Units/L [facility] CH Blood 09/06/2024 3:21 AM MANAGER E COMMERCE 09/06/2024 4:06 PM MANAGER E COMMERCE Sushma Ware TECHNICAL PROFESSIONAL LAB BLOOD ORDERABLES Final Result Performing Organization Address [facility] de Phone Number [facility] [address] [place] [address] * (ABNORMAL) Renal function panel (09/06/2024 3:21 AM MANAGER E COMMERCE) Sodium 141 135 - 145 mmol/L Potassium, [...] 2022. Calcium 8.4(L) 8.5 - 10.3 mg/dL [facility] Phosphorus, pl 2.3 2.3 - 4.5 mg/dL [facility] CH Albumin 3.3(L) 3.5 - 5.0 g/dL CERNER Blood 09/06/2024 3:21 AM MANAGER E COMMERCE 09/06/2024 3:32 AM MANAGER E COMMERCE Pily Escudero NP LAB BLOOD ORDERABLES [facility] [place] al Result Performing Organization Address City/State/[facility] Co de Phone Number AZAM [address] [place] [address] * IR Chest Drainage With Imaging Right (09/05/2024 2:50 PM MANAGER E COMMERCE) Anatomical Region Laterality Modality Chest Right X-Ray Angiograph y 09/05/2024 4:29 PM MANAGER E COMMERCE Impressions 09/05/2024 4:29 PM MANAGER E COMMERCE Successful ultrasound-guided right thoracostomy tube placement. Electronically signed by: Chato Swain M.D. Narrative 09/05/2024 4:29 PM MANAGER E COMMERCE EXAMINATION: IR CHEST DRAINAGE W IMAGING RIGHT [...] skin and subcutaneous tissues were dilated to 14-Qatari. Over the guidewire, a 14-Qatari pigtail drainage catheter was advanced into the [...] skin and subcutaneous tissues were dilated to 14-Qatari. Over the guidewire, a 14-Qatari pigtail drainage catheter was advanced into the right pleural space. The catheter was secured to the skin and a sterile dressing was applied. The catheter was connected to a Pleur-evac. A small amount of serosanguineous fluid was submitted for culture. The patient tolerated the procedure well with no immediate complications. IMPRESSION: Successful ultrasound-guided right thoracostomy tube placement. Electronically signed by: Chato Swain M.D. us Sushma Ware NP IMG IR PROCEDURES Final Re sult * XR Chest 1 Vw Portable (09/05/2024 2:47 PM MANAGER E COMMERCE) Anatomical Region Laterality Modality Body, Chest N/A Computed Radiogr aphy 09/05/2024 2:51 PM MANAGER E COMMERCE Impressions 09/05/2024 2:51 PM MANAGER E COMMERCE FINDINGS/IMPRESSION: Interval placement of right thoracostomy tube. Similar right pneumothorax when compared to prior chest CT dated same day. Mild cardiomegaly. Mild pulmonary vascular congestion. No acute osseous abnormality. Electronically signed by: Deon Moreira II, D.O. Narrative 09/05/2024 2:51 PM MANAGER E COMMERCE EXAMINATION: XR CHEST 1 VIEW DATE: 09/05/2024 [...] Pleural fluid Pleural cavity (09/05/2024 2:27 PM MANAGER E COMMERCE) Direct Specimen Exam Stain: Cytospin Gram stain shows: Abundant polymorphonuclear leukocytes seen. Red blood cells present. Other cellular material present. No organisms seen. Comment:Testing performed by : [facility], [address] [place]., [address] Report Final Report: No growth AZAM Comment:Testing performed by : [facility], [address] [place]., [address] Pleural fluid (Pleural cavity) 09/05/2024 2:27 PM MANAGER E COMMERCE 09/05/2024 6:07 PM MANAGER E COMMERCE Narrative AZAM - 09/09/2024 11:37 AM MANAGER E COMMERCE Right chest tube Fluid specimen received. Testing performed by [facility] ([phone]) Specimens submitted from normally sterile body sites [...] interpretive data was last revised on 2019. us Chato Swain MD LAB MICROBIOLOGY - GENERAL O RDERABLES Final Result AZAM [address] [place] [address] * CT Chest Abdomen Pelvis WO Contrast (09/05/2024 11:49 AM MANAGER E COMMERCE) Anatomical Region Laterality Modality Body N/A Computed Tomogra phy 09/05/2024 12:3 0 PM MANAGER E COMMERCE Impressions 09/05/2024 12:30 PM MANAGER E COMMERCE 1. Small right pleural effusion. 2. Bilateral [...] Moreira II, D.O. Narrative 09/05/2024 12:30 PM MANAGER E COMMERCE EXAMINATION: CT CHEST ABDOMEN PELVIS WO CONTRAST [...] by: Deon Moreira II, D.O. Sushma Ware TECHNICAL PROFESSIONAL IMG CT PROCEDURES Final Re sult * (ABNORMAL) aPTT (09/05/2024 10:07 AM MANAGER E COMMERCE) aPTT 25(L) 28 - 38 sec Comment: Interpretive Data Heparin therapeutic range: 66.0 - 100.0 seconds. Range based on correlation with therapeutic heparin activity range of 0.3 - 0.7 Units/mL. Current interpretive data was last revised on 2023. Blood 09/05/2024 10:0 7 AM MANAGER E COMMERCE 09/05/2024 10:12 AM MANAGER E COMMERCE Sushma Ware TECHNICAL PROFESSIONAL LAB BLOOD ORDERABLES Final Result AZAM XIE [address] [place] [address] * Protime-INR (09/05/2024 10:07 AM MANAGER E COMMERCE) PT 13.0 9.7 - 13.0 sec INR 1.20 0.90 - 1.20 AZAM XIE Comment: Interpretive data Oral anticoagulant therapeutic ranges: Venous thromboembolism prophylaxis or treatment: 2.0-3.0 CARDIOLOGY Standard range: 2.0-3.0 High-intensity range: 2.5-3.5 Refer to indication-specific guidelines for appropriate target ranges for prosthetic heart valve replacement. Current interpretive data was last revised on 2019. Blood 09/05/2024 10:0 7 AM MANAGER E COMMERCE 09/05/2024 1:06 PM MANAGER E COMMERCE Narrative AZAM XIE - 09/05/2024 1:11 PM MANAGER E COMMERCE Add on us Chato Swain MD LAB BLOOD ORDERABLES Final R esult AZAM XIE [address] [place] [address] * XR Chest 1 View - Portable - in AM (09/05/2024 5:10 AM MANAGER E COMMERCE) Anatomical Region Laterality Modality Body, Chest N/A Computed Radiogr aphy 09/05/2024 9:16 AM MANAGER E COMMERCE Impressions 09/05/2024 9:16 AM MANAGER E COMMERCE FINDINGS/IMPRESSION: Poststernotomy changes and aortic valvuloplasty. Small bilateral pleural effusions and pulmonary vascular congestion. No pneumothorax. Prominence of interstitial markings in the perihilar region appear slightly decreased presumed representing improved pulmonary edema. Electronically signed by: Deon Moreira II, D.O. Narrative 09/05/2024 9:16 AM MANAGER E COMMERCE EXAMINATION: XR CHEST 1 VIEW DATE: 09/05/2024 [...] Final Result * eGFR (09/05/2024 1:46 AM MANAGER E COMMERCE) eGFR 81 >=60 mL/min/1. 73 m2 Comment: [...] last reviewed 2021. Blood 09/05/2024 1:46 AM MANAGER E COMMERCE 09/05/2024 2:31 AM MANAGER E COMMERCE Pily Escudero NP LAB BLOOD ORDERABLES Fin al Result [facility] [address] Department of Laboratories [place], [place] [id number] * (ABNORMAL) CBC without differential (09/05/2024 1:46 AM MANAGER E COMMERCE) WBC 18.0(H) 3.8 - 9.9 K/cumm Hgb 9.5(L) 11.9 - 15.5 g/dL [facility] Hct 30.5(L) 35.6 - 45.5 % [facility] Plt 325 150 - 400 K/cumm [facility] MPV 11.2 9.1 - 12.3 fL [facility] RBC 3.31(L) 3.90 - 5.20 M/cumm [facility] MCV 92.1 81.3 - 96.4 fL [facility] MCH 28.7 27.1 - 33.3 pg [facility]ER CH MCHC 31.1(L) 32.3 - 35.7 g/dL [facility] CH RDW CV 14.9 11.1 - 14.9 % [facility] CH RDW SD 49.3(H) 35.7 - 48.1 fL [facility] CH NRBC abs 0.07(H) 0.00 - 0.01 K/cumm [facility]ER CH Blood 09/05/2024 1:46 AM MANAGER E COMMERCE 09/05/2024 2:30 AM MANAGER E COMMERCE Pily Escudero TECHNICAL PROFESSIONAL LAB BLOOD ORDERABLES Fin al Result Performing Organization Address [facility] Co de Phone Number [facility] [address] [facility] [email or web address] [place] [phone] * Magnesium (09/05/2024 1:46 AM MANAGER E COMMERCE) Pathologist [facility] [place] Magnesium 2.2 1.4 - 2.5 mg/dL Blood 09/05/2024 1:46 AM MANAGER E COMMERCE 09/05/2024 2:31 AM MANAGER E COMMERCE Pily Escudero TECHNICAL PROFESSIONAL LAB BLOOD ORDERABLES Fin al Result Performing Organization Address [facility] de Phone Number [facility] [address] [place] [address] * (ABNORMAL) Renal function panel (09/05/2024 1:46 AM MANAGER E COMMERCE) Sodium 141 135 - 145 mmol/L Potassium, pl 3.2(L) 3.3 - 4.9 mmol/L CERNER Chloride 98 97 - 110 mmol/L CERNER CO2 29 22 - 32 mmol/L [facility] CH Anion gap 14 2 - 15 mmol/L [facility]ERNER BUN 37(H) 6 - 25 mg/dL CERNER Creatinine 0.76 0.60 - 1.10 mg/dL C[facility]ER Glucose 135 70 - 199 mg/dL [facility] Comment: Interpretive Data Fasting glucose >/= 126 [...] g/dL [facility] CH Blood 09/05/2024 1:46 AM MANAGER E COMMERCE 09/05/2024 2:31 AM MANAGER E COMMERCE us Pily Escudero NP LAB BLOOD ORDERABLES Fin al Result [facility] [address] [place] [address] * (ABNORMAL) Urinalysis reflex to microscopic and culture Urine, indwelling catheter (09/04/2024 4:50PM MANAGER E COMMERCE) Color, ur Yellow Yellow Clarity, ur Clear [...] tendency for uric acid stone formation. Source: [facility] [email or web address] Current Interpretive Data was last revised on [...] CH Urine, indwelling catheter 09/04/2024 4:50 PM MANAGER E COMMERCE 09/04/2024 5:06 PM MANAGER E COMMERCE Sushma Ware NP LAB MICROBIOLOGY - GENERAL ORDERABLES Final Result Performing Organization Address [facility] Co de Phone Number [facility] [address] [facility] Laboratories [place], [place] [phone] * (ABNORMAL) Urinalysis, microscopic only (09/04/2024 4:50 PM MANAGER E COMMERCE) WBC, ur 6-10(A) 0 - 5 /HPF RBC, ur 3-5(A) 0 - 2 /HPF [facility] Mucous, ur Present(A) [facility] Hyaline casts, ur 6-10 0 - 10 /LPF [facility] Culture Reflex Comment Reflex conditions for urine culture (WBC >10) not met. [facility] Urine, indwelling catheter 09/04/2024 4:50 PM MANAGER E COMMERCE 09/04/2024 5:06 PM MANAGER E COMMERCE Sushma Ware TECHNICAL PROFESSIONAL LAB URINE ORDERABLES Final Result Performing Organization Address [facility] de Phone Number [facility] [address] [facility] [place] [address] * Urine culture Urine, indwelling catheter (09/04/2024 4:50 PM MANAGER E COMMERCE) Report Final Report: No growth Comment:Testing performed by : [facility], [address] [place]., [address] Urine, indwelling catheter 09/04/2024 4:50 PM MANAGER E COMMERCE 09/05/2024 2:20 PM MANAGER E COMMERCE Narrative [facility] - 09/06/2024 5:18 PM MANAGER E COMMERCE Worsening leukocytosis Indications for Culture:->Recent positive UA Testing performed by [facility] ([phone]) Sushma Ware NP LAB MICROBIOLOGY - GENERAL ORDERABLES Final Result AZAM [address] [facility] Department of Laboratories [place] [phone] * TRANSTHORACIC ECHO (TTE) COMPLETE W DOPPLER/CF WO CONTRAST (09/04/2024 11:24 AM MANAGER E COMMERCE) LV EF % CONS SCIMAGE Anatomical Region Laterality Modality Ultrasound 09/04/2024 10:2 4 AM MANAGER E COMMERCE Narrative 09/04/2024 11:51 AM MANAGER E COMMERCE [place] [phone] Echocardiogram Report Patient Name: MICHELLE HENRY ANN : 1945 Study Date: 09/04/2024 10:24:27 AM Gender: F Tech: RF Location: [id number] Ref Provider: ELIDIA BERMUDEZ Height(Cm): 155 BSA: [...] regurgitation. Electronically Signed By: Neri Hutchinson MD, [facility] 09/04/2024 11:50:54 AM MANAGER E COMMERCE Procedure Note Neri Hutchinson MD - 09/04/2024 [place] [address] Echocardiogram Report Patient Name: MICHELLE HENRY ANN : 1945 Study Date: 09/04/2024 10:24:27 AM Gender: F Tech: RF Location: [id number] [facility] Provider: ELIDIA BERMUDEZ Height(Cm): 155 BSA: [...] regurgitation. Electronically Signed By: Neri Hutchinson MD, [facility] 09/04/2024 11:50:54 AM MANAGER E COMMERCE us Elidia Bermudez TECHNICAL PROFESSIONAL CV ECHO PROCEDURES Final Result * ECG 12 lead (09/04/2024 9:45 AM MANAGER E COMMERCE) 09/04/2024 9:45 AM MANAGER E COMMERCE Narrative [facility] - 09/04/2024 11:12 AM MANAGER E COMMERCE Vent Rate: 60 bpm RR Interval: 991 msec AR Interval: 0 msec QRS Duration: 150 msec QT Interval: 450 msec QTC Interval: 451 msec P-R-T Casanova: 0 - -47 - 70 degrees IMPRESSION: Electronic ventricular pacemaker ABNORMAL ECG Compared to prior EKG, heart rate has decreased Ventricular pacing is now present Electronically Signed By: Prabhjot Sutton MD Sushma Ware NP ECG ORDERABLES Final Resu lt [facility] * XR Chest 1 View - Portable - in AM (09/04/2024 5:53 AM MANAGER E COMMERCE) Anatomical Region Laterality Modality Body, Chest N/A Computed Radiogr aphy 09/04/2024 12:2 1 PM MANAGER E COMMERCE Impressions 09/04/2024 12:21 PM MANAGER E COMMERCE FINDINGS/IMPRESSION: Small bilateral pleural effusions. No pneumothorax. No cardiomegaly. Poststernotomy changes and aortic valvuloplasty. Similar pulmonary vascular congestion. Decrease in interstitial opacities in the lungs bilaterally with only residual small opacities in the bilateral lower lobes most consistent with interstitial pulmonary edema. Electronically signed by: Deon Moreira II, D.O. Narrative 09/04/2024 12:21 PM MANAGER E COMMERCE EXAMINATION: XR CHEST 1 VIEW DATE: 09/04/2024 [...] Final Result * eGFR (09/04/2024 2:47 AM MANAGER E COMMERCE) eGFR 77 >=60 mL/min/1. 73 m2 Comment: [...] last reviewed 2021. Blood 09/04/2024 2:47 AM MANAGER E COMMERCE 09/04/2024 2:47 AM MANAGER E COMMERCE us Pily Escudeor NP LAB BLOOD ORDERABLES Fin al Result AZAM [address] [place] [address] * Magnesium (09/04/2024 2:47 AM MANAGER E COMMERCE) Pathologist [facility] [place] Magnesium 2.3 1.4 - 2.5 mg/dL Blood 09/04/2024 2:47 AM MANAGER E COMMERCE 09/04/2024 2:47 AM MANAGER E COMMERCE Pily Ecsudero TECHNICAL PROFESSIONAL LAB BLOOD ORDERABLES Fin al Result [facility] [address] [place] [address] * (ABNORMAL) Hepatic function panel (09/04/2024 2:47 AM MANAGER E COMMERCE) Pathologist [facility] [place] Bilirubin, total 0.9 0.1 - 1.2 mg/dL Bilirubin, direct 0.3 0.1 - 0.3 mg/dL [facility] CH Protein, pl 5.7(L) 6.5 - 8.5 g/dL [facility] CH Albumin 3.4(L) 3.5 - 5.0 g/dL [facility] CH Alk phos 200(H) 40 - 130 Units/L [facility] ALT 289(H) 7 - 45 Units/L [facility] AST 94(H) 10 - 45 Units/L [facility] Blood 09/04/2024 2:47 AM MANAGER E COMMERCE 09/04/2024 8:51 AM MANAGER E COMMERCE Sushma Ware TECHNICAL PROFESSIONAL LAB BLOOD [place] [address] [place] [address] * (ABNORMAL) Renal function panel (09/04/2024 2:47 AM MANAGER E COMMERCE) Pathologist [facility] [place] Sodium 138 135 - 145 mmol/L Potassium, pl 3.1(L) 3.3 - 4.9 mmol/L [facility] Chloride 96(L) 97 - 110 mmol/L [facility] CH CO2 28 22 - 32 mmol/L [facility] CH Anion gap 14 2 - 15 mmol/L [facility] BUN 41(H) 6 - 25 mg/dL [facility] Creatinine 0.79 0.60 - 1.10 mg/dL [facility] CH Glucose 131 70 - 199 mg/dL [facility] Comment: Interpretive Data Fasting glucose >/= [...] Calcium 8.3(L) 8.5 - 10.3 mg/dL [facility] Phosphorus, pl 3.1 2.3 - 4.5 mg/dL [facility] Albumin 3.4(L) 3.5 - 5.0 g/dL [facility] Blood 09/04/2024 2:47 AM MANAGER E COMMERCE 09/04/2024 2:47 AM MANAGER E COMMERCE us Pily Escudero NP LAB BLOOD ORDERABLES Fin al Result [facility] [address] [place] [address] * (ABNORMAL) CBC without differential (09/04/2024 2:45 AM MANAGER E COMMERCE) WBC 16.4(H) 3.8 - 9.9 K/cumm Hgb 9.1(L) 11.9 - 15.5 g/dL [facility] Hct 28.4(L) 35.6 - 45.5 % [facility] Plt 253 150 - 400 K/cumm [facility] MPV 11.6 9.1 - 12.3 fL [facility] RBC 3.10(L) 3.90 - 5.20 M/cumm [facility] MCV 91.6 81.3 - 96.4 fL [facility] MCH 29.4 27.1 - 33.3 pg [facility] MCHC 32.0(L) 32.3 - 35.7 g/dL [facility] RDW CV 14.7 11.1 - 14.9 % [facility] CH RDW SD 48.4(H) 35.7 - 48.1 fL [facility] NRBC abs 0.13(H) 0.00 - 0.01 K/cumm [facility] Blood 09/04/2024 2:45 AM MANAGER E COMMERCE 09/04/2024 2:45 AM MANAGER E COMMERCE Pily Escudero NP LAB BLOOD ORDERABLES Fin al Result Performing Organization Address [facility] Co de Phone Number AZAM [address] [address] [place] [address] * ECG 12 lead (09/03/2024 4:06 PM MANAGER E COMMERCE) 09/03/2024 4:06 PM MANAGER E COMMERCE Narrative [facility] - 09/03/2024 4:30 PM MANAGER E COMMERCE Vent Rate: 100 bpm RR Interval: 600 msec AR Interval: 0 msec QRS Duration: 83 msec QT Interval: 338 msec QTC Interval: 395 msec P-R-T Casanova: 0 - -24 - -61 degrees IMPRESSION: [...] ECG ORDERABLES Final Result Performing Organization Address [facility] de Phone Number [facility] [employer] [facility] * XR Chest PA Lateral 2 Views (09/03/2024 9:51 AM MANAGER E COMMERCE) Anatomical Region Laterality Modality Body, Chest N/A Computed Radiogr aphy 09/03/2024 10:5 2 AM MANAGER E COMMERCE Impressions 09/03/2024 10:52 AM MANAGER E COMMERCE Infiltrates, effusions, atelectasis and pulmonary vascular congestion, unchanged. Electronically signed by: Chato Swain M.D. Narrative 09/03/2024 10:52 AM MANAGER E COMMERCE EXAMINATION: XR CHEST PA LATERAL 2 VIEWS [...] signed by: Chato Swain M.D. Elidia Bermudez TECHNICAL PROFESSIONAL IMG XR PROCEDURES Final R esult * POCT glucose (09/03/2024 7:37 AM MANAGER E COMMERCE) Glucose, POC 105 70 - 199 mg/dL Blood 09/03/2024 7:37 AM MANAGER E COMMERCE 09/03/2024 7:37 AM MANAGER E COMMERCE Dusty Benral MD LAB POCT ORDERABLES - DEVICE F inal Result AZAM [address] [place] [address] * XR Chest 1 View - Portable - in AM (09/03/2024 4:40 AM MANAGER E COMMERCE) Anatomical Region Laterality Modality Body, Chest N/A Computed Radiogr aphy 09/03/2024 10:1 8 AM MANAGER E COMMERCE Impressions 09/03/2024 10:18 AM MANAGER E COMMERCE FINDINGS/IMPRESSION: Small bilateral pleural effusions. Aortic valvuloplasty and poststernotomy changes. Cardiac mediastinal silhouette within normal limits. Mild pulmonary vascular congestion. No pneumothorax. No acute osseous abnormality. Electronically signed by: Deon Moreira II, D.O. Narrative 09/03/2024 10:18 AM MANAGER E COMMERCE EXAMINATION: XR CHEST 1 VIEW DATE: 09/03/2024 [...] Final Result * eGFR (09/03/2024 4:37 AM MANAGER E COMMERCE) eGFR 63 >=60 mL/min/1. 73 m2 Comment: [...] last reviewed 2021. Blood 09/03/2024 4:37 AM MANAGER E COMMERCE 09/03/2024 5:39 AM MANAGER E COMMERCE Pily Escudero TECHNICAL PROFESSIONAL LAB BLOOD ORDERABLES Fin al Result Performing Organization Address City/[facility]/ZIP Co de Phone Number AZAM XIE [address] [place] [address] * (ABNORMAL) CBC without differential (09/03/2024 4:37 AM MANAGER E COMMERCE) WBC 17.1(H) 3.8 - 9.9 K/cumm Hgb 9.0(L) 11.9 - 15.5 g/dL [facility] Hct 28.3(L) 35.6 - 45.5 % [facility] Plt 178 150 - 400 K/cumm [facility] MPV 12.3 9.1 - 12.3 fL [facility] RBC 3.09(L) 3.90 - 5.20 M/cumm [facility] MCV 91.6 81.3 - 96.4 fL [facility] MCH 29.1 27.1 - 33.3 pg [facility] MCHC 31.8(L) 32.3 - 35.7 g/dL [facility] RDW CV 15.0(H) 11.1 - 14.9 % [facility] RDW SD 49.4(H) 35.7 - 48.1 fL [facility] NRBC abs 0.38(H) 0.00 - 0.01 K/cumm [facility] Blood 09/03/2024 4:3 7 AM MANAGER E COMMERCE 09/03/2024 5:39 AM MANAGER E COMMERCE Pily Escudero TECHNICAL PROFESSIONAL LAB BLOOD ORDERABLES Fin al Result Performing Organization Address [facility]/ZIP Co de Phone Number AZAM XIE [address] [email or web address] [address] * Magnesium (09/03/2024 4:37 AM MANAGER E COMMERCE) Magnesium 2.5 1.4 - 2.5 mg/dL Blood 09/03/2024 4:37 AM MANAGER E COMMERCE 09/03/2024 5:39 AM MANAGER E COMMERCE Pily Escudero TECHNICAL PROFESSIONAL LAB BLOOD ORDERABLES Fin al Result Performing Organization Address [facility] Phone Number [facility] [address] [place] [address] * (ABNORMAL) Renal function panel (09/03/2024 4:37 AM MANAGER E COMMERCE) Sodium 137 135 - 145 mmol/L Potassium, pl 3.5 3.3 - 4.9 mmol/L [facility] Chloride 99 97 - 110 mmol/L [facility] CO2 24 22 - 32 mmol/L [facility] Anion gap 14 2 - 15 mmol/L [facility] BUN 50(H) 6 - 25 mg/dL [facility] Creatinine 0.93 0.60 - 1.10 mg/dL [facility] [...] - 10.3 mg/dL [facility] Phosphorus, pl 3.8 2.3 - 4.5 mg/dL [facility] Albumin 3.4(L) 3.5 - 5.0 g/dL [facility] Blood 09/03/2024 4:37 AM MANAGER E COMMERCE 09/03/2024 5:39 AM MANAGER E COMMERCE Pily Escudero NP LAB BLOOD ORDERABLES Fin al Result Performing Organization Address [facility] Co de Phone Number AZAM XIE [address] [facility] [email or web address] [address] * POCT glucose (09/02/2024 9:46 PM MANAGER E COMMERCE) Glucose, POC 105 70 - 199 mg/dL Blood 09/02/2024 9:46 PM MANAGER E COMMERCE 09/02/2024 9:46 PM MANAGER E COMMERCE Dusty Bernal MD LAB POCT ORDERABLES - DEVICE F inal Result Performing Organization Address [facility] de Phone Number [facility] [address] [address] [facility] [email or web address] [address] * POCT glucose (09/02/2024 5:45 PM MANAGER E COMMERCE) Glucose, POC 122 70 - 199 mg/dL Blood 09/02/2024 5:45 PM MANAGER E COMMERCE 09/02/2024 5:45 PM MANAGER E COMMERCE Dusty Bernal MD LAB POCT ORDERABLES - DEVICE F inal Result Performing Organization Address [facility] de Phone Number AZAM [address] [address] [facility] [email or web address] [address] * POCT glucose (09/02/2024 12:43 PM MANAGER E COMMERCE) Glucose, POC 120 70 - 199 mg/dL Blood 09/02/2024 12:4 3 PM MANAGER E COMMERCE 09/02/2024 12:43 PM MANAGER E COMMERCE Dusty Bernal MD LAB POCT ORDERABLES - DEVICE F inal Result Performing Organization Address [facility] Co de Phone Number AZAM [id number] [address] [facility] [email or web address] [address] * XR Kub (09/02/2024 9:52 AM MANAGER E COMMERCE) Anatomical Region Laterality Modality Body, Abdomen N/A Computed Radiogr aphy 09/02/2024 10:0 0 AM MANAGER E COMMERCE Impressions 09/02/2024 10:00 AM MANAGER E COMMERCE No bowel obstruction or gross free intraperitoneal air. Moderate to large amount of fecal material in the rectum. Electronically signed by: Brown Kohler M.D. Narrative 09/02/2024 10:00 AM MANAGER E COMMERCE EXAMINATION: XR KUB DATE: 09/02/2024 9:35 AM. [...] Result * POCT glucose (09/02/2024 8:21 AM MANAGER E COMMERCE) Glucose, POC 138 70 - 199 mg/dL Blood 09/02/2024 8:21 AM MANAGER E COMMERCE 09/02/2024 8:21 AM MANAGER E COMMERCE Dusty Bernal MD LAB POCT ORDERABLES - DEVICE F inal Result [facility] [address] [place] [address] * XR Chest 1 View - Portable - in AM (09/02/2024 6:02 AM MANAGER E COMMERCE) Anatomical Region Laterality Modality Body, Chest N/A Computed Radiogr aphy 09/02/2024 7:53 AM MANAGER E COMMERCE Impressions 09/02/2024 7:53 AM MANAGER E COMMERCE A comparison study is dated 09/01/2024. Again [...] You Trevizo M.D. Narrative 09/02/2024 7:53 AM MANAGER E COMMERCE EXAMINATION: XR CHEST 1 VIEW Procedure Note [...] by: You Trevizo M.D. Dusty Bernal MD IM XR PROCEDURES Final Result * (ABNORMAL) eGFR (09/02/2024 4:08 AM MANAGER E COMMERCE) eGFR 43(L) >=60 mL/min/1. 73 m2 Comment: [...] last reviewed 2021. Blood 09/02/2024 4:08 AM MANAGER E COMMERCE 09/02/2024 4:48 AM MANAGER E COMMERCE us Pily Escudero NP LAB BLOOD ORDERABLES Fin al Result AZAM [id number] [address] [place] [address] * (ABNORMAL) CBC without differential (09/02/2024 4:08 AM MANAGER E COMMERCE) WBC 14.9(H) 3.8 - 9.9 K/cumm Hgb 8.7(L) 11.9 - 15.5 g/dL [facility] Hct 27.8(L) 35.6 - 45.5 % [facility] Plt 158 150 - 400 K/cumm [facility] MPV 12.7(H) 9.1 - 12.3 fL [facility] RBC 3.03(L) 3.90 - 5.20 M/cumm [facility] MCV 91.7 81.3 - 96.4 fL [facility] MCH 28.7 27.1 - 33.3 pg [facility] MCHC 31.3(L) 32.3 - 35.7 g/dL [facility] CH RDW CV 14.8 11.1 - 14.9 % [facility] CH RDW SD 49.5(H) 35.7 - 48.1 fL [facility] NRBC abs 0.16(H) 0.00 - 0.01 K/cumm [facility] CH Blood 09/02/2024 4:08 AM MANAGER E COMMERCE 09/02/2024 4:50 AM MANAGER E COMMERCE Pily Sita Kota TECHNICAL PROFESSIONAL LAB BLOOD ORDERABLES Fin al Result Performing Organization Address City/[facility]/ZIP Co de Phone Number [facility] [address] Department [email or web address] [address] * Magnesium (09/02/2024 4:08 AM MANAGER E COMMERCE) Magnesium 2.4 1.4 - 2.5 mg/dL Blood 09/02/2024 4:08 AM MANAGER E COMMERCE 09/02/2024 4:48 AM MANAGER E COMMERCE Pily Buckner Kota TECHNICAL PROFESSIONAL LAB BLOOD ORDERABLES Fin al Result Performing Organization Address [facility] Co de Phone Number [facility] [address] [email or web address] [address] * (ABNORMAL) Renal function panel (09/02/2024 4:08 AM MANAGER E COMMERCE) Sodium 139 135 - 145 mmol/L Potassium, pl 3.8 3.3 - 4.9 mmol/L [facility] Chloride 100 97 - 110 mmol/L [facility] CO2 22 22 - 32 mmol/L [facility] Anion gap 17(H) 2 - 15 mmol/L [facility] BUN 46(H) 6 - 25 mg/dL [facility] Creatinine 1.28(H) 0.60 - 1.10 mg/dL [facility] Glucose 145 70 - 199 mg/dL [facility] Comment: Interpretive Data Fasting glucose >/= [...] 2022. Calcium 8.3(L) 8.5 - 10.3 mg/dL [facility] Phosphorus, pl 4.4 2.3 - 4.5 mg/dL [facility] Albumin 3.5 3.5 - 5.0 g/dL [facility] Blood 09/02/2024 4:08 AM MANAGER E COMMERCE 09/02/2024 4:48 AM MANAGER E COMMERCE Pily Escudero TECHNICAL PROFESSIONAL LAB BLOOD ORDERABLES Fin al Result Performing Organization Address City/[facility]/ZIP Co de Phone Number AZAM XIE [address] [address] [facility] [email or web address] [address] * POCT glucose (09/01/2024 10:07 PM MANAGER E COMMERCE) Glucose, POC 158 70 - 199 mg/dL Blood 09/01/2024 10:0 7 PM MANAGER E COMMERCE 09/01/2024 10:07 PM MANAGER E COMMERCE Dusty Bernal MD LAB POCT ORDERABLES - DEVICE F inal Result Performing Organization Address [facility] Co de Phone Number [facility] [address] [address] [facility] [email or web address] [address] * POCT glucose (09/01/2024 4:54 PM MANAGER E COMMERCE) Glucose, POC 120 70 - 199 mg/dL Blood 09/01/2024 4:54 PM MANAGER E COMMERCE 09/01/2024 4:54 PM MANAGER E COMMERCE Dusty Bernal MD LAB POCT ORDERABLES - DEVICE F inal Result Performing Organization Address [facility] Co de Phone Number AZAM [address] [facility] [email or web address] [address] * POCT glucose (09/01/2024 12:17 PM MANAGER E COMMERCE) Glucose, POC 118 70 - 199 mg/dL Blood 09/01/2024 12:1 7 PM MANAGER E COMMERCE 09/01/2024 12:17 PM MANAGER E COMMERCE Dusty Bernal MD LAB POCT ORDERABLES - DEVICE F inal Result AZAM [address] [address] Department [place] [address] * POCT glucose (09/01/2024 7:45 AM MANAGER E COMMERCE) Glucose, POC 111 70 - 199 mg/dL Blood 09/01/2024 7:45 AM MANAGER E COMMERCE 09/01/2024 7:45 AM MANAGER E COMMERCE Dusty Bernal MD LAB POCT ORDERABLES - [place] [address] [address] Department [place] [address] * XR Chest 1 View - Portable - in AM (09/01/2024 5:47 AM MANAGER E COMMERCE) Anatomical Region Laterality Modality Body, Chest N/A Computed Radiogr aphy 09/01/2024 8:37 AM MANAGER E COMMERCE Impressions 09/01/2024 8:37 AM MANAGER E COMMERCE Right internal jugular central venous catheter ends in the right atrium. Post CABG and mitral valve replacement. Stable cardiomegaly. Improving hazy opacities throughout both lungs and improving right perihilar and bibasilar opacities likely improving pulmonary vascular congestion, pleural effusions, and atelectasis. Lung volumes remain low. No pneumothorax. Stable cardiomediastinal silhouette. Electronically signed by: Brown Kohler M.D. Narrative 09/01/2024 8:37 AM MANAGER E COMMERCE EXAMINATION: XR CHEST 1 VIEW DATE: 09/01/2024 [...] Final Result * eGFR (09/01/2024 2:51 AM MANAGER E COMMERCE) eGFR 85 >=60 mL/min/1. 73 m2 Comment: [...] last reviewed 2021. Blood 09/01/2024 2:51 AM MANAGER E COMMERCE 09/01/2024 3:18 AM MANAGER E COMMERCE Pily sEcudero TECHNICAL PROFESSIONAL LAB BLOOD ORDERABLES Fin al Result [facility] [address] [place] [address] * (ABNORMAL) CBC without differential (09/01/2024 2:51 AM MANAGER E COMMERCE) WBC 11.9(H) 3.8 - 9.9 K/cumm Hgb 7.8(L) 11.9 - 15.5 g/dL [facility] XIE Hct 24.0(L) 35.6 - 45.5 % AZAM CH Plt 92(L) 150 - 400 K/cumm [facility] MPV 13.2(H) 9.1 - 12.3 fL [facility] RBC 2.64(L) 3.90 - 5.20 M/cumm [facility] MCV 90.9 81.3 - 96.4 fL [facility] MCH 29.5 27.1 - 33.3 pg [facility] MCHC 32.5 32.3 - 35.7 g/dL [facility] CH RDW CV 14.5 11.1 - 14.9 % [facility] CH RDW SD 47.6 35.7 - 48.1 fL [facility] NRBC abs 0.03(H) 0.00 - 0.01 K/cumm [facility] CH Blood 09/01/2024 2:51 AM MANAGER E COMMERCE 09/01/2024 3:18 AM MANAGER E COMMERCE Pily Escudero TECHNICAL PROFESSIONAL LAB BLOOD ORDERABLES Fin al Result Performing Organization Address [facility] de Phone Number [facility] [address] [facility] [place], [place] [id number] * (ABNORMAL) Magnesium (09/01/2024 2:51 AM MANAGER E COMMERCE) Pathologist [facility] [place] Magnesium 2.6(H) 1.4 - 2.5 mg/dL Blood 09/01/2024 2:51 AM MANAGER E COMMERCE 09/01/2024 3:18 AM MANAGER E COMMERCE Pily Escudero TECHNICAL PROFESSIONAL LAB BLOOD ORDERABLES Fin al Result Performing Organization Address [facility] de Phone Number [facility] [address] [address] [facility] [email or web address] [place], [place] [id number] * (ABNORMAL) Renal function panel (09/01/2024 2:51 AM MANAGER E COMMERCE) Pathologist [facility] [place] Sodium 138 135 - 145 mmol/L Potassium, pl 3.5 3.3 - 4.9 mmol/L [facility] Chloride 102 97 - 110 mmol/L [facility] CO2 27 22 - 32 mmol/L [facility] Anion gap 9 2 - 15 mmol/L [facility] BUN 34(H) 6 - 25 mg/dL [facility] Creatinine 0.73 0.60 - 1.10 mg/dL [facility] Glucose 107 70 - 199 mg/dL [facility] Comment: Interpretive Data Fasting glucose >/= [...] Calcium 8.2(L) 8.5 - 10.3 mg/dL [facility] Phosphorus, pl 2.3 2.3 - 4.5 mg/dL [facility] Albumin 3.3(L) 3.5 - 5.0 g/dL [facility] Blood 09/01/2024 2:51 AM MANAGER E COMMERCE 09/01/2024 3:18 AM MANAGER E COMMERCE Pily Escudero NP LAB BLOOD ORDERABLES Fin al Result Performing Organization Address [facility] Co de Phone Number [facility] [address] Department [email or web address] [address] * POCT glucose (09/01/2024 1:56 AM MANAGER E COMMERCE) Glucose, POC 110 70 - 199 mg/dL Blood 09/01/2024 1:56 AM MANAGER E COMMERCE 09/01/2024 1:56 AM MANAGER E COMMERCE Dusty Benral MD LAB POCT ORDERABLES - DEVICE F inal Result Performing Organization Address [facility] Co de Phone Number [facility] [address] [address] Department [place] [address] * POCT glucose (08/31/2024 9:52 PM MANAGER E COMMERCE) Glucose, POC 135 70 - 199 mg/dL Blood 08/31/2024 9:52 PM MANAGER E COMMERCE 08/31/2024 9:52 PM MANAGER E COMMERCE Dusty Bernal MD LAB POCT ORDERABLES - DEVICE F inal Result [facility] XIE [address] [address] Department [place] [address] * ECG 12 lead (08/31/2024 7:16 PM MANAGER E COMMERCE) 08/31/2024 7:16 PM MANAGER E COMMERCE Narrative [facility] - 09/01/2024 1:02 PM MANAGER E COMMERCE Vent Rate: 80 bpm RR Interval: 749 msec AR Interval: 168 msec QRS Duration: 86 msec QT Interval: 402 msec QTC Interval: 437 msec P-R-T Casanova: 80 - -1 - 25 degrees IMPRESSION: ELECTRONIC ATRIAL PACEMAKER WITH INTERMITTENT VENTRICULAR PACING VOLTAGE CRITERIA FOR LVH, CONSIDER NORMAL VARIANT NONSPECIFIC ST \T\ T-WAVE ABNORMALITY Electronically Signed By: Brendan Pool MD, [facility] Dusty Bernal MD ECG ORDERABLES Final Result Performing Organization Address [facility] de Phone Number [facility] [employer] [facility] * eGFR (08/31/2024 7:09 PM MANAGER E COMMERCE) Pathologist [facility] [place] eGFR 72 >=60 mL/min/1. 73 m2 Comment: [...] last reviewed 2021. Blood 08/31/2024 7:09 PM MANAGER E COMMERCE 08/31/2024 7:13 PM MANAGER E COMMERCE Dusty Bernal MD LAB BLOOD ORDERABLES Final Res ult [facility] [address] [place] [address] * (ABNORMAL) Differential, auto (08/31/2024 7:09 PM MANAGER E COMMERCE) Neutrophil abs 11.1(H) 1.5 - 6.5 K/cumm Imm gran abs 0.1 0.0 - 0.1 K/cumm [facility] Lymphocyte abs 1.3 0.8 - 3.3 K/cumm [facility] Monocyte abs 1.0(H) 0.2 - 0.8 K/cumm [facility] Eosinophil abs 0.0 0.0 - 0.5 K/cumm [facility] Basophil abs 0.0 0.0 - 0.1 K/cumm [facility] Neutrophil pct 81.6 % [facility] Comment: Interpretive Data Percent cell count reference ranges are not reported, since discordance with absolute values may lead to misinterpretation of CBC data. Current Interpretive Data was last revised on 2017. Imm gran pct 1.0 % [facility] Comment: Interpretive Data Percent cell count reference ranges are not reported, since discordance with absolute values may lead to misinterpretation of CBC data. Current Interpretive Data was last revised on 2017. Lymphocyte pct 9.5 % [facility] Comment: Interpretive Data Percent cell count reference ranges are not reported, since discordance with absolute values may lead to misinterpretation of CBC data. Current Interpretive Data was last revised on 2017. Monocyte pct 7.6 % [facility] Comment: Interpretive Data Percent cell count reference ranges are not reported, since discordance with absolute values may lead to misinterpretation of CBC data. Current Interpretive Data was last revised on 2017. Eosinophil pct 0.2 % [facility] Comment: Interpretive Data Percent cell count reference ranges are not reported, since discordance with absolute values may lead to misinterpretation of CBC data. Current Interpretive Data was last revised on 2017. Basophil pct 0.1 % [facility] Comment: Interpretive Data Percent cell count reference ranges are not reported, since discordance with absolute values may lead to misinterpretation of CBC data. Current Interpretive Data was last revised on 2017. Blood 08/31/2024 7:09 PM MANAGER E COMMERCE 08/31/2024 7:13 PM MANAGER E COMMERCE Dusty Bernal MD LAB BLOOD ORDERABLES Final Res ult AZAM [address] [address] [place] [address] * (ABNORMAL) CBC with auto differential (08/31/2024 7:09 PM MANAGER E COMMERCE) WBC 13.6(H) 3.8 - 9.9 K/cumm Hgb 8.4(L) 11.9 - 15.5 g/dL [facility] Hct 25.5(L) 35.6 - 45.5 % [facility] Plt 90(L) 150 - 400 K/cumm [facility] MPV 13.0(H) 9.1 - 12.3 fL [facility] RBC 2.84(L) 3.90 - 5.20 M/cumm [facility] MCV 89.8 81.3 - 96.4 fL [facility] MCH 29.6 27.1 - 33.3 pg [facility] MCHC 32.9 32.3 - 35.7 g/dL [facility] RDW CV 14.6 11.1 - 14.9 % [facility] RDW SD 47.4 35.7 - 48.1 fL [facility] NRBC abs 0.00 0.00 - 0.01 K/cumm [facility] Blood 08/31/2024 7:09 PM MANAGER E COMMERCE 08/31/2024 7:13 PM MANAGER E COMMERCE Dusty Bernal MD LAB BLOOD ORDERABLES Final Res ult Performing Organization Address City/[facility]/ZIP Co de Phone Number [facility]AM XIE [address] [address] [facility] [email or web address] [address] * Phosphorus (08/31/2024 7:09 PM MANAGER E COMMERCE) Pathologist [facility] [place] Phosphorus, pl 3.0 2.3 - 4.5 mg/dL Blood 08/31/2024 7:09 PM MANAGER E COMMERCE 08/31/2024 7:13 PM MANAGER E COMMERCE Dusty Bernal MD LAB BLOOD ORDERABLES Final Res ult Performing Organization Address [facility] Co de Phone Number [facility] XIE [address] [email or web address] [address] * Magnesium (08/31/2024 7:09 PM MANAGER E COMMERCE) Pathologist [facility] [place] Magnesium 2.2 1.4 - 2.5 mg/dL Blood 08/31/2024 7:09 PM MANAGER E COMMERCE 08/31/2024 7:13 PM MANAGER E COMMERCE Dusty Bernal MD LAB BLOOD ORDERABLES Final Res ult Performing Organization Address [facility] Co de Phone Number [facility] XIE [address] [address] [facility] [email or web address] [address] * (ABNORMAL) Basic metabolic panel (08/31/2024 7:09 PM MANAGER E COMMERCE) Pathologist [facility] [place] Sodium 135 135 - 145 mmol/L Potassium, pl 3.1(L) 3.3 - 4.9 mmol/L [facility] Chloride 97 97 - 110 mmol/L [facility] CO2 26 22 - 32 mmol/L [facility] Anion gap 12 2 - 15 mmol/L [facility] BUN 38(H) 6 - 25 mg/dL [facility] Creatinine 0.84 0.60 - 1.10 mg/dL [facility] Glucose 147 70 - 199 mg/dL [facility] Comment: Interpretive [...] Calcium 8.5 8.5 - 10.3 mg/dL [facility] Blood 08/31/2024 7:09 PM MANAGER E COMMERCE 08/31/2024 7:13 PM MANAGER E COMMERCE Dusty Bernal MD LAB BLOOD ORDERABLES Final Res ult Performing Organization Address [facility] Co de Phone Number [facility] [address] [address] [facility] [place] [address] * POCT glucose (08/31/2024 5:36 PM MANAGER E COMMERCE) Glucose, POC 119 70 - 199 mg/dL Blood 08/31/2024 5:36 PM MANAGER E COMMERCE 08/31/2024 5:36 PM MANAGER E COMMERCE Dusty Bernal MD LAB POCT ORDERABLES - DEVICE F inal Result Performing Organization Address [facility] Co de Phone Number [facility] [address] [address] [email or web address] [address] * POCT glucose (08/31/2024 12:15 PM MANAGER E COMMERCE) Glucose, POC 165 70 - 199 mg/dL Blood 08/31/2024 12:1 5 PM MANAGER E COMMERCE 08/31/2024 12:15 PM MANAGER E COMMERCE Dusty Bernal MD LAB POCT ORDERABLES - DEVICE F inal Result Performing Organization Address [facility] Co de Phone Number [facility] [address] [address] [email or web address] [address] * XR Kub (08/31/2024 8:05 AM MANAGER E COMMERCE) Anatomical Region Laterality Modality Body, Abdomen N/A Computed Radiogr aphy 08/31/2024 8:31 AM MANAGER E COMMERCE Impressions 08/31/2024 8:31 AM MANAGER E COMMERCE Normal bowel gas pattern. Electronically signed by: Chato Swain M.D. Narrative 08/31/2024 8:31 AM MANAGER E COMMERCE EXAMINATION: XR KUB DATE: 08/31/2024 7:35 AM [...] Result * POCT glucose (08/31/2024 7:33 AM MANAGER E COMMERCE) Glucose, POC 123 70 - 199 mg/dL Blood 08/31/2024 7:33 AM MANAGER E COMMERCE 08/31/2024 7:33 AM MANAGER E COMMERCE Dusty Bernal MD LAB POCT ORDERABLES - DEVICE F inal Result [facility] [address] [place] [address] * ECG 12 lead (08/31/2024 7:23 AM MANAGER E COMMERCE) 08/31/2024 7:23 AM MANAGER E COMMERCE Narrative [facility] - 08/31/2024 8:12 AM MANAGER E COMMERCE Vent Rate: 67 bpm RR Interval: 889 msec AR Interval: 0 msec QRS Duration: 94 msec QT Interval: 408 msec QTC Interval: 423 msec P-R-T Casanova: 0 - -10 - 32 degrees IMPRESSION: JUNCTIONAL RHYTHM WITH ABERRANT CONDUCTION OR VENTRICULAR PREMATURE COMPLEXES VOLTAGE CRITERIA FOR LVH, CONSIDER NORMAL VARIANT Electronically Signed By: Brendan Pool MD, [facility] Result [facility] Dusty Bernal MD ECG ORDERABLES Final Result [facility] * Critical Care (08/31/2024 6:47 AM MANAGER E COMMERCE) Narrative Joel Moran MD - 08/31/2024 6:47 AM MANAGER E COMMERCE Sofia James PA 08/31/2024 8:49 AM Critical [...] plan with the patient's team and other medical/heritage consultant staff. This time was in addition to and separate from care provided by other practitioners on this day of service. I spent time reviewing and interpreting data from bedside monitors, laboratory results, and imaging, I spent time discussing the management of this critically ill patient with consultants and the medical staff and I spent time documenting in the medical record Result [facility]ia [facility] ELINA TANNER Final Result * Oxyhemoglobin, central venous (08/31/2024 4:50 AM MANAGER E COMMERCE) Oxyhemoglobin, CV 57.7 % Comment: Interpretive Data No reference range established. Current interpretive data was last revised 2019. Blood 08/31/2024 4:50 AM MANAGER E COMMERCE 08/31/2024 4:59 AM MANAGER E COMMERCE Result [facility] Dusty Bernal MD LAB BLOOD ORDERABLES Final Res ult Performing Organization Address [facility] Co de Phone Number [facility] XIE [address] Department of Laboratories [place], [place] [id number] * eGFR (08/31/2024 4:50 AM MANAGER E COMMERCE) eGFR 73 >=60 mL/min/1. 73 m2 Comment: [...] last reviewed 2021. Blood 08/31/2024 4:50 AM MANAGER E COMMERCE 08/31/2024 4:59 AM MANAGER E COMMERCE Pily Escudero NP LAB BLOOD ORDERABLES Fin al Result Performing Organization Address [facility] Co de Phone Number [facility] XIE [address] [address] [place] [address] * (ABNORMAL) CBC without differential (08/31/2024 4:50 AM MANAGER E COMMERCE) WBC 14.1(H) 3.8 - 9.9 K/cumm Hgb 7.8(L) 11.9 - 15.5 g/dL [facility] Hct 23.9(L) 35.6 - 45.5 % [facility] Plt 73(L) 150 - 400 K/cumm [facility] Comment:No clot detected in sample. MPV 13.0(H) 9.1 - 12.3 fL [facility] RBC 2.63(L) 3.90 - 5.20 M/cumm [facility] MCV 90.9 81.3 - 96.4 fL [facility] MCH 29.7 27.1 - 33.3 pg [facility] MCHC 32.6 32.3 - 35.7 g/dL [facility] CH RDW CV 14.8 11.1 - 14.9 % [facility] CH RDW SD 49.6(H) 35.7 - 48.1 fL [facility] NRBC abs 0.00 0.00 - 0.01 K/cumm [facility] CH Blood 08/31/2024 4:50 AM MANAGER E COMMERCE 08/31/2024 5:00 AM MANAGER E COMMERCE Pily Escudero TECHNICAL PROFESSIONAL LAB BLOOD ORDERABLES Fin al Result Performing Organization Address [facility] Co de Phone Number [facility] [address] [address] [facility] [email or web address] [place], [place] [id number] * Magnesium (08/31/2024 4:50 AM MANAGER E COMMERCE) Pathologist [facility] [place] Magnesium 2.3 1.4 - 2.5 mg/dL Blood 08/31/2024 4:50 AM MANAGER E COMMERCE 08/31/2024 4:59 AM MANAGER E COMMERCE Pily Escudero NP LAB BLOOD ORDERABLES Fin al Result Performing Organization Address [facility] Co de Phone Number [facility] [address] [address] [facility] [email or web address] [address] * (ABNORMAL) Renal function panel (08/31/2024 4:50 AM MANAGER E COMMERCE) Sodium 140 135 - 145 mmol/L Potassium, pl 3.7 3.3 - 4.9 mmol/L [facility] Chloride 105 97 - 110 mmol/L [facility] CO2 25 22 - 32 mmol/L [facility] Anion gap 10 2 - 15 mmol/L [facility] BUN 34(H) 6 - 25 mg/dL [facility] Creatinine 0.83 0.60 - 1.10 mg/dL [facility] Glucose 122 70 - 199 mg/dL [facility] Comment: Interpretive Data Fasting glucose >/= [...] Calcium 8.2(L) 8.5 - 10.3 mg/dL [facility] Phosphorus, pl 3.1 2.3 - 4.5 mg/dL [facility] Albumin 3.6 3.5 - 5.0 g/dL [facility] Blood 08/31/2024 4:50 AM MANAGER E COMMERCE 08/31/2024 4:59 AM MANAGER E COMMERCE Pily Escudero NP LAB BLOOD ORDERABLES [facility] [place] al Result [facility] [id number] [address] Department of Laboratories [place] [phone] * XR Chest 1 View - Portable - in AM (08/31/2024 4:37 AM MANAGER E COMMERCE) Anatomical Region Laterality Modality Body, Chest N/A Computed Radiogr aphy 08/31/2024 9:50 AM MANAGER E COMMERCE Impressions 08/31/2024 9:50 AM MANAGER E COMMERCE 1. Status post median sternotomy and mitral valve replacement. 2. A right jugular venous catheter remains in place. 3. The left chest tube has been removed. 4. Mild cardiomegaly and pulmonary vascular congestion. 5. Aortic atherosclerosis. 6. Consolidation of the left lung base is unchanged. 7. Small pleural effusions are suspected. Electronically signed by: Marv Fisher M.D. Narrative 08/31/2024 9:50 AM MANAGER E COMMERCE EXAM: XR CHEST 1 VIEW DATE: 08/31/2024 4:05 AM CLINICAL HISTORY: Status post cardiac surgery. COMPARISON: 08/30/2024 FINDINGS: Portable AP radiograph of the chest was obtained. There are postsurgical changes from a median sternotomy and mitral valve replacement. There is a right jugular venous catheter with tip near the cavoatrial junction. The [place]-Jozef catheter and left chest tube have been [...] with tip near the cavoatrial junction. The [place]-Jozef catheter and left chest tube have been [...] Result * POCT glucose (08/30/2024 8:21 PM MANAGER E COMMERCE) Glucose, POC 162 70 - 199 mg/dL Blood 08/30/2024 8:21 PM MANAGER E COMMERCE 08/30/2024 8:21 PM MANAGER E COMMERCE Dusty Bernal MD LAB POCT ORDERABLES - DEVICE F inal Result [facility] [address] Department [place] [address] * POCT glucose (08/30/2024 5:26 PM MANAGER E COMMERCE) Glucose, POC 145 70 - 199 mg/dL Blood 08/30/2024 5:26 PM MANAGER E COMMERCE 08/30/2024 5:26 PM MANAGER E COMMERCE Dusty Bernal MD LAB POCT ORDERABLES - DEVICE F inal Result Performing Organization Address [facility] Co de Phone Number AZAM [address] [address] [facility] [email or web address] [address] * POCT glucose (08/30/2024 12:21 PM MANAGER E COMMERCE) Glucose, POC 163 70 - 199 mg/dL Blood 08/30/2024 12:2 1 PM MANAGER E COMMERCE 08/30/2024 12:21 PM MANAGER E COMMERCE Dusty Bernal MD LAB POCT ORDERABLES - DEVICE F inal Result Performing Organization Address [facility] Co de Phone Number AZAM [address] [address] [facility] [email or web address] [address] * POCT glucose (08/30/2024 8:28 AM MANAGER E COMMERCE) Glucose, POC 170 70 - 199 mg/dL Blood 08/30/2024 8:28 AM MANAGER E COMMERCE 08/30/2024 8:28 AM MANAGER E COMMERCE Dusty Bernal MD LAB POCT ORDERABLES - DEVICE F inal Result Performing Organization Address [facility] Co de Phone [place] [facility] [place] [address] [address] [facility] [email or web address] [address] * Critical Care (08/30/2024 6:46 AM MANAGER E COMMERCE) Narrative Joel Moran MD - 08/30/2024 6:46 AM MANAGER E COMMERCE Sofia James PA 08/30/2024 3:12 PM Critical [...] plan with the ICU team and other medical/heritage consultant staff, making frequent assessments and decisions [...] spent time documenting in the medical record Sofia [facility]BEDSIDE ELINA TANNER Final Result * XR Chest 1 View - Portable - in AM (08/30/2024 3:48 AM MANAGER E COMMERCE) Anatomical Region Laterality Modality Body, Chest N/A Computed Radiogr aphy 08/30/2024 11:1 0 AM MANAGER E COMMERCE Impressions 08/30/2024 11:10 AM MANAGER E COMMERCE Postop change with mild perihilar interstitial infiltrate/edema, small effusions and bibasilar atelectasis. Electronically signed by: Grace Meza M.D. Narrative 08/30/2024 11:10 AM MANAGER E COMMERCE Examination: XR CHEST 1 VIEW Date: 08/30/2024 [...] atelectasis. Electronically signed by: Grace Meza M.D. Result [facility] Dusty Bernal MD IMG XR PROCEDURES Final Result * Oxyhemoglobin, central venous (08/30/2024 3:12 AM MANAGER E COMMERCE) Oxyhemoglobin, CV 95.5 % Comment: Interpretive Data No reference range established. Current interpretive data was last revised 2019. Blood 08/30/2024 3:12 AM MANAGER E COMMERCE 08/30/2024 3:16 AM MANAGER E COMMERCE Result [facility] Dusty Bernal MD LAB BLOOD ORDERABLES Final Res ult Performing Organization Address [facility] Co de Phone Number [facility] [address] [address] [place] [address] * (ABNORMAL) Lactate (08/30/2024 3:12 AM MANAGER E COMMERCE) Lactate 2.4(H) 0.7 - 2.0 mmol/L Blood 08/30/2024 3:12 AM MANAGER E COMMERCE 08/30/2024 3:16 AM MANAGER E COMMERCE Esthela Garcia MD LAB BLOOD ORDERABLES Final Re sult Performing Organization Address [facility] Co de Phone Number [facility] [place] [address] [address] Department [email or web address] [address] * eGFR (08/30/2024 3:12 AM MANAGER E COMMERCE) eGFR 69 >=60 mL/min/1. 73 m2 Comment: [...] last reviewed 2021. Blood 08/30/2024 3:12 AM MANAGER E COMMERCE 08/30/2024 3:24 AM MANAGER E COMMERCE us Pily Escudero NP LAB BLOOD ORDERABLES Fin al Result [facility] [address] [address] [place] [address] * (ABNORMAL) CBC without differential (08/30/2024 3:12 AM MANAGER E COMMERCE) WBC 14.4(H) 3.8 - 9.9 K/cumm Hgb 7.7(L) 11.9 - 15.5 g/dL [facility] Hct 23.6(L) 35.6 - 45.5 % [facility] Plt 64(L) 150 - 400 K/cumm [facility] Comment:No clot detected in sample. MPV 12.8(H) 9.1 - 12.3 fL [facility] RBC 2.63(L) 3.90 - 5.20 M/cumm [facility] MCV 89.7 81.3 - 96.4 fL [facility] MCH 29.3 27.1 - 33.3 pg [facility] MCHC 32.6 32.3 - 35.7 g/dL [facility] RDW CV 15.1(H) 11.1 - 14.9 % [facility] RDW SD 49.0(H) 35.7 - 48.1 fL [facility] NRBC abs 0.00 0.00 - 0.01 K/cumm [facility] Blood 08/30/2024 3:12 AM MANAGER E COMMERCE 08/30/2024 3:16 AM MANAGER E COMMERCE Pily Escudero TECHNICAL PROFESSIONAL LAB BLOOD ORDERABLES Fin al Result Performing Organization Address [facility] Co de Phone Number [facility] [address] [address] [facility] [email or web address] [address] * Magnesium (08/30/2024 3:12 AM MANAGER E COMMERCE) [facility] Magnesium 2.1 1.4 - 2.5 mg/dL Blood 08/30/2024 3:12 AM MANAGER E COMMERCE 08/30/2024 3:16 AM MANAGER E COMMERCE Pily Escudero TECHNICAL PROFESSIONAL LAB BLOOD ORDERABLES Fin al Result Performing Organization Address [facility] de Phone Number [facility] [address] [address] [facility] [email or web address] [address] * (ABNORMAL) Renal function panel (08/30/2024 3:12 AM MANAGER E COMMERCE) Pathologist [facility] [place] Sodium 142 135 - 145 mmol/L Potassium, pl 3.9 3.3 - 4.9 mmol/L [facility] Chloride 106 97 - 110 mmol/L [facility] CO2 21(L) 22 - 32 mmol/L [facility] Anion gap 15 2 - 15 mmol/L [facility] BUN 24 6 - 25 mg/dL [facility] Creatinine 0.87 0.60 - 1.10 mg/dL [facility] Glucose 194 70 - 199 mg/dL [facility] Comment: Interpretive Data Fasting glucose >/= [...] Calcium 8.7 8.5 - 10.3 mg/dL [facility] Phosphorus, pl 3.1 2.3 - 4.5 mg/dL [facility] Albumin 3.8 3.5 - 5.0 g/dL [facility] Blood 08/30/2024 3:1 2 AM MANAGER E COMMERCE 08/30/2024 3:16 AM MANAGER E COMMERCE Pily Escudero NP LAB BLOOD ORDERABLES Fin al Result [facility] [address] Department [place] [address] * eGFR (08/29/2024 11:45 PM MANAGER E COMMERCE) eGFR 71 >=60 mL/min/1. 73 m2 Comment: [...] reviewed 2021. Blood 08/29/2024 11:4 5 PM MANAGER E COMMERCE 08/29/2024 11:57 PM MANAGER E COMMERCE us Dusty Bernal MD LAB BLOOD ORDERABLES Final Res ult [facility] [address] [address] Department [place] [address] * (ABNORMAL) Differential, auto (08/29/2024 11:45 PM MANAGER E COMMERCE) Neutrophil abs 12.6(H) 1.5 - 6.5 K/cumm Imm gran abs 0.1 0.0 - 0.1 K/cumm [facility] Lymphocyte abs 1.4 0.8 - 3.3 K/cumm [facility] Monocyte abs 1.3(H) 0.2 - 0.8 K/cumm [facility] Eosinophil abs 0.0 0.0 - 0.5 K/cumm [facility] Basophil abs 0.0 0.0 - 0.1 K/cumm [facility] Neutrophil pct 81.8 % [facility] Comment: Interpretive Data Percent cell count reference ranges are not reported, since discordance with absolute values may lead to misinterpretation of CBC data. Current Interpretive Data was last revised on 2017. Imm gran pct 0.7 % [facility] Comment: Interpretive Data Percent cell [...] revised on 2017. Monocyte pct 8.4 % [facility] Comment: Interpretive Data Percent cell [...] revised on 2017. Basophil pct 0.3 % [facility] Comment: Interpretive Data Percent cell count reference ranges are not reported, since discordance with absolute values may lead to misinterpretation of CBC data. Current Interpretive Data was last revised on 2017. Blood 08/29/2024 11:4 5 PM MANAGER E COMMERCE 08/29/2024 11:57 PM MANAGER E COMMERCE Dusty Bernal MD LAB BLOOD ORDERABLES Final Res ult Performing Organization Address [facility]/ZIP Co de Phone Number AZ[facility] XIE [address] [place] [address] * (ABNORMAL) CBC with auto differential (08/29/2024 11:45 PM MANAGER E COMMERCE) WBC 15.4(H) 3.8 - 9.9 K/cumm Hgb 8.2(L) 11.9 - 15.5 g/dL [facility] Hct 24.5(L) 35.6 - 45.5 % [facility] Plt 73(L) 150 - 400 K/cumm [facility] Comment:No clot detected in sample. MPV 12.8(H) 9.1 - 12.3 fL [facility] RBC 2.76(L) 3.90 - 5.20 M/cumm [facility] MCV 88.8 81.3 - 96.4 fL [facility] MCH 29.7 27.1 - 33.3 pg [facility] MCHC 33.5 32.3 - 35.7 g/dL [facility] RDW CV 14.9 11.1 - 14.9 % [facility] RDW SD 47.5 35.7 - 48.1 fL [facility] NRBC abs 0.00 0.00 - 0.01 K/cumm [facility] Blood 08/29/2024 11:4 5 PM MANAGER E COMMERCE 08/29/2024 11:57 PM MANAGER E COMMERCE Dusty Bernal MD LAB BLOOD ORDERABLES Final Res ult Performing Organization Address [facility]/ZIP Co de Phone Number [facility] XIE [address] [address] Department of [email or web address] [place], [place] [id number] * (ABNORMAL) Basic metabolic panel (08/29/2024 11:45 PM MANAGER E COMMERCE) Sodium 143 135 - 145 mmol/L Potassium, pl 3.8 3.3 - 4.9 mmol/L [facility] Chloride 106 97 - 110 mmol/L [facility] CO2 22 22 - 32 mmol/L [facility] Anion gap 15 2 - 15 mmol/L [facility] BUN 23 6 - 25 mg/dL [facility] Creatinine 0.85 0.60 - 1.10 mg/dL [facility] Glucose 207(H) 70 - 199 mg/dL [facility] Comment: Interpretive Data Fasting glucose >/= [...] Calcium 8.7 8.5 - 10.3 mg/dL [facility] Blood 08/29/2024 11:4 5 PM MANAGER E COMMERCE 08/29/2024 11:57 PM MANAGER E COMMERCE Dusty Bernal MD LAB BLOOD ORDERABLES Final Res ult [facility] [address] [address] [place] [address] * (ABNORMAL) Lactate (08/29/2024 10:40 PM MANAGER E COMMERCE) Lactate 4.2(C) 0.7 - 2.0 mmol/L Comment:Critical result call ed to and read back by Shelli Ascencio on 08/29/2024 22:52:23 MANAGER E COMMERCE to Natali Hankins. Blood 08/29/2024 10:4 0 PM MANAGER E COMMERCE 08/29/2024 10:47 PM MANAGER E COMMERCE us Dusty Bernal MD LAB BLOOD ORDERABLES Final Res ult Performing Organization Address [facility] Co de Phone Number [facility] XIE [address] [address] [facility] [email or web address] [address] * (ABNORMAL) POCT glucose (08/29/2024 8:35 PM MANAGER E COMMERCE) Glucose, POC 205(H) 70 - 199 mg/dL Blood 08/29/2024 8:35 PM MANAGER E COMMERCE 08/29/2024 8:35 PM MANAGER E COMMERCE Dusty Bernal MD LAB POCT ORDERABLES - DEVICE F inal Result Performing Organization Address [facility] de Phone Number [facility] XIE [address] [address] [facility] [email or web address] [address] * POCT glucose (08/29/2024 4:54 PM MANAGER E COMMERCE) Glucose, POC 176 70 - 199 mg/dL Blood 08/29/2024 4:54 PM MANAGER E COMMERCE 08/29/2024 4:54 PM MANAGER E COMMERCE Dusty Bernal MD LAB POCT ORDERABLES - DEVICE F inal Result Performing Organization Address [facility] Co de Phone Number AZAM [address] [address] [email or web address] [address] * POCT glucose (08/29/2024 3:22 PM MANAGER E COMMERCE) Glucose, POC 184 70 - 199 mg/dL Blood 08/29/2024 3:22 PM MANAGER E COMMERCE 08/29/2024 3:22 PM MANAGER E COMMERCE Dusty Bernal MD LAB POCT ORDERABLES - DEVICE F inal Result Performing Organization Address [facility] Co de Phone Number AZAM [address] [address] [facility] [email or web address] [address] * (ABNORMAL) Calcium, ionized, whole blood (08/29/2024 1:24 PM MANAGER E COMMERCE) Ca, ionized, bld 5.29(H) 4.50 - 5.10 mg/dL Blood 08/29/2024 1:24 PM MANAGER E COMMERCE 08/29/2024 1:26 PM MANAGER E COMMERCE Dahiana King TECHNICAL PROFESSIONAL LAB BLOOD ORDERABLES F inal Result Performing Organization Address [facility] Co de Phone Number AZAM [address] [place] [address] * eGFR (08/29/2024 1:24 PM MANAGER E COMMERCE) eGFR 88 >=60 mL/min/1. 73 m2 Comment: [...] last reviewed 2021. Blood 08/29/2024 1:24 PM MANAGER E COMMERCE 08/29/2024 1:28 PM MANAGER E COMMERCE Dahiana King TECHNICAL PROFESSIONAL LAB BLOOD ORDERABLES F inal Result Performing Organization Address City/[facility]/[place] [address] [address] Department [employer] [place], [place] [id number] * Magnesium (08/29/2024 1:24 PM MANAGER E COMMERCE) Magnesium 2.3 1.4 - 2.5 mg/dL Blood 08/29/2024 1:24 PM MANAGER E COMMERCE 08/29/2024 1:27 PM MANAGER E COMMERCE Dahiana King TECHNICAL PROFESSIONAL LAB BLOOD ORDERABLES F inal Result Performing Organization Address [facility]/ZIP Co de Phone Number [facility] [address] [address] [place] [address] * (ABNORMAL) Renal function panel (08/29/2024 1:24 PM MANAGER E COMMERCE) Pathologist [facility] [place] Sodium 143 135 - 145 mmol/L Potassium, [...] Albumin 4.1 3.5 - 5.0 g/dL [facility] Blood 08/29/2024 1:24 PM MANAGER E COMMERCE 08/29/2024 1:27 PM MANAGER E COMMERCE Dahiana King TECHNICAL PROFESSIONAL LAB BLOOD ORDERABLES F inal Result Performing Organization Address City/[facility]/ZIP Co de Phone Number [facility] [address] [address] [facility] [email or web address] [address] * (ABNORMAL) POCT glucose (08/29/2024 12:13 PM MANAGER E COMMERCE) Glucose, POC 228(H) 70 - 199 mg/dL Blood 08/29/2024 12:1 3 PM MANAGER E COMMERCE 08/29/2024 12:13 PM MANAGER E COMMERCE Dusty Bernal MD LAB POCT ORDERABLES - DEVICE F inal Result Performing Organization Address [facility] de Phone Number AZAM [address] [address] [facility] [email or web address] [address] * (ABNORMAL) POCT glucose (08/29/2024 12:12 PM MANAGER E COMMERCE) Glucose, POC 231(H) 70 - 199 mg/dL Blood 08/29/2024 12:1 2 PM MANAGER E COMMERCE 08/29/2024 12:12 PM MANAGER E COMMERCE Dusty Bernal MD LAB POCT ORDERABLES - DEVICE F inal Result Performing Organization Address [facility] de Phone Number AZAM [address] [address] [facility] [email or web address] [address] * POCT glucose (08/29/2024 8:46 AM MANAGER E COMMERCE) Glucose, POC 100 70 - 199 mg/dL Blood 08/29/2024 8:46 AM MANAGER E COMMERCE 08/29/2024 8:46 AM MANAGER E COMMERCE Dusty Bernal MD LAB POCT ORDERABLES - DEVICE F inal Result Performing Organization Address [facility] Co de Phone Number AZAM [address] [address] [facility] [email or web address] [address] * ECG 12 lead (08/29/2024 7:44 AM MANAGER E COMMERCE) 08/29/2024 7:44 AM MANAGER E COMMERCE Narrative [facility] - 08/29/2024 6:36 PM MANAGER E COMMERCE Vent Rate: 71 bpm RR Interval: 842 msec AR Interval: 0 msec QRS Duration: 85 msec QT Interval: 399 msec QTC Interval: 421 msec P-R-T Casanova: 0 - -4 - 2 degrees IMPRESSION: ATRIAL FIBRILLATION POSSIBLE RIGHT VENTRICULAR CONDUCTION DELAY [RSR (QR) IN V1/V2] ABNORMAL ECG Electronically Signed By: Dr. Mimi Murray [facility] Dusty Bernal MD ECG ORDERABLES Final Result [facility] * Critical Care (08/29/2024 7:00 AM MANAGER E COMMERCE) Narrative Joel Moran MD - 08/29/2024 7:00 AM MANAGER E COMMERCE Dahiana King NP 08/29/2024 5:43 PM Critical Care Performed by: Dahiana King NP Authorized by: Dahiana King NP CRITICAL CARE: Team: RONALD Shift: AM [...] plan with the ICU team and other medical/heritage consultant staff, making frequent assessments and decisions [...] from bedside monitors, laboratory results, and imaging Dahiana King TECHNICAL PROFESSIONAL IN CLINIC/BEDSIDE ELINA TANNER Final Result * POCT glucose (08/29/2024 6:22 AM MANAGER E COMMERCE) Glucose, POC 101 70 - 199 mg/dL Blood 08/29/2024 6:22 AM MANAGER E COMMERCE 08/29/2024 6:22 AM MANAGER E COMMERCE Dusty Bernal MD LAB POCT ORDERABLES - DEVICE F inal Result [facility] [address] [address] [place] [address] * XR Chest 1 View - Portable - in AM (08/29/2024 4:30 AM MANAGER E COMMERCE) Anatomical Region Laterality Modality Body, Chest N/A Computed Radiogr aphy 08/29/2024 8:29 AM MANAGER E COMMERCE Impressions 08/29/2024 8:29 AM MANAGER E COMMERCE Extubation, mild failure. No pneumothorax. Electronically signed by: Yimi Bond M.D. Narrative 08/29/2024 8:29 AM MANAGER E COMMERCE EXAMINATION: XR CHEST 1 VIEW DATE: 08/29/2024 3:30 AM HISTORY: Cardiac surgery follow-up FINDINGS:Compared with the study of the prior day, patient is extubated with removal of endotracheal and nasogastric tubes. Bilateral chest tubes and mediastinal drain and [place]-Jozef catheter remain in place. There is cardiomegaly with mild pulmonary vascular congestive changes. No pneumothorax Procedure Note Yimi Bond MD - 08/29/2024 EXAMINATION: XR CHEST 1 VIEW DATE: 08/29/2024 3:30 AM HISTORY: Cardiac surgery follow-up FINDINGS:Compared with the study of the prior day, patient is extubated with removal of endotracheal and nasogastric tubes. Bilateral chest tubes and mediastinal drain and [place]-Jozef catheter remain in place. There is cardiomegaly with mild pulmonary vascular congestive changes. No pneumothorax IMPRESSION: Extubation, mild failure. No pneumothorax. Electronically signed by: Yimi Bond M.D. Dusty Bernal MD IMG XR PROCEDURES Final Result * POCT glucose (08/29/2024 4:17 AM MANAGER E COMMERCE) [facility] Glucose, POC 108 70 - 199 mg/dL Blood 08/29/2024 4:17 AM MANAGER E COMMERCE 08/29/2024 4:17 AM MANAGER E COMMERCE uDsty Bernal MD LAB POCT ORDERABLES - DEVICE F inal Result Performing Organization Address [facility] Co de Phone Number AZAM [address] [address] [facility] [email or web address] [address] * Oxyhemoglobin, central venous (08/29/2024 4:11 AM MANAGER E COMMERCE) [facility] Oxyhemoglobin, CV 96.2 % Comment: Interpretive Data No reference range established. Current interpretive data was last revised 2019. Blood 08/29/2024 4:11 AM MANAGER E COMMERCE 08/29/2024 4:30 AM MANAGER E COMMERCE Dusty Bernal MD LAB BLOOD ORDERABLES Final Res ult Performing Organization Address [facility] Co de Phone Number [facility] [address] [place] [address] * (ABNORMAL) Lactate (08/29/2024 4:11 AM MANAGER E COMMERCE) [facility] Lactate 2.2(H) 0.7 - 2.0 mmol/L Blood 08/29/2024 4:11 AM MANAGER E COMMERCE 08/29/2024 4:30 AM MANAGER E COMMERCE Dusty Bernal MD LAB BLOOD ORDERABLES Final Res ult Performing Organization Address [facility] Co de Phone Number [facility] [address] [address] [facility] [email or web address] [address] * eGFR (08/29/2024 4:11 AM MANAGER E COMMERCE) [facility] eGFR >90 >=60 mL/min/1. 73 m2 Comment: [...] last reviewed 2021. Blood 08/29/2024 4:11 AM MANAGER E COMMERCE 08/29/2024 4:30 AM MANAGER E COMMERCE us Pily Escudero NP LAB BLOOD ORDERABLES Fin al Result [facility] [address] [address] Department [place] [address] * (ABNORMAL) Differential, auto (08/29/2024 4:11 AM MANAGER E COMMERCE) Pathologist [facility] [place] Neutrophil abs 9.5(H) 1.5 - 6.5 K/cumm Imm gran abs 0.1 0.0 - 0.1 K/cumm [facility] Lymphocyte abs 1.0 0.8 - 3.3 K/cumm [facility] Monocyte abs 0.9(H) 0.2 - 0.8 K/cumm [facility] Eosinophil abs 0.0 0.0 - 0.5 K/cumm [facility] Basophil abs 0.0 0.0 - 0.1 K/cumm [facility] Neutrophil pct 82.6 % [facility] Comment: Interpretive Data Percent cell count reference ranges are not reported, since discordance with absolute values may lead to misinterpretation of CBC data. Current Interpretive Data was last revised on 2017. Imm gran pct 0.4 % [facility] Comment: Interpretive Data Percent cell [...] revised on 2017. Monocyte pct 8.0 % [facility] Comment: Interpretive Data Percent cell [...] revised on 2017. Basophil pct 0.2 % [facility] Comment: Interpretive Data Percent cell count reference ranges are not reported, since discordance with absolute values may lead to misinterpretation of CBC data. Current Interpretive Data was last revised on 2017. Blood 08/29/2024 4:11 AM MANAGER E COMMERCE 08/29/2024 4:30 AM MANAGER E COMMERCE us Dusty Bernal MD LAB BLOOD ORDERABLES Final Res ult Performing Organization Address [facility] Co de Phone Number AZAM [address] [address] Department [employer] [place], [place] [id number] * Thyroid Function [place] (08/29/2024 4:11 AM MANAGER E COMMERCE) TSH 1.05 0.30 - 4.20 mcIUnit/mL Blood 08/29/2024 4:11 AM MANAGER E COMMERCE 08/29/2024 4:30 AM MANAGER E COMMERCE us Pily Escudero NP LAB BLOOD ORDERABLES Fin al Result Performing Organization Address [facility] Co de Phone Number AZAM [address] [address] [place] [address] * (ABNORMAL) CBC with auto differential (08/29/2024 4:11 AM MANAGER E COMMERCE) WBC 11.5(H) 3.8 - 9.9 K/cumm Hgb [...] K/cumm [facility] Blood 08/29/2024 4:11 AM MANAGER E COMMERCE 08/29/2024 4:30 AM MANAGER E COMMERCE Dusty Bernal MD LAB BLOOD ORDERABLES Final Res ult Performing Organization Address City/[facility]/ZIP Co de Phone Number [facility] XIE [address] [address] [facility] [email or web address] [address] * (ABNORMAL) Magnesium (08/29/2024 4:11 AM MANAGER E COMMERCE) Magnesium 2.7(H) 1.4 - 2.5 mg/dL Blood 08/29/2024 4:11 AM MANAGER E COMMERCE 08/29/2024 4:30 AM MANAGER E COMMERCE Pily Escudero TECHNICAL PROFESSIONAL LAB BLOOD ORDERABLES Fin al Result [facility] [address] [address] [email or web address] [address] * (ABNORMAL) Renal function panel (08/29/2024 4:11 AM MANAGER E COMMERCE) Sodium 149(H) 135 - 145 mmol/L Potassium, [...] g/dL [facility] Blood 08/29/2024 4:11 AM MANAGER E COMMERCE 08/29/2024 4:30 AM MANAGER E COMMERCE us Pily Escudero NP LAB BLOOD ORDERABLES Fin al Result [facility] [address] [address] [place] [address] * POCT glucose (08/29/2024 2:59 AM MANAGER E COMMERCE) Glucose, POC 102 70 - 199 mg/dL Blood 08/29/2024 2:59 AM MANAGER E COMMERCE 08/29/2024 2:59 AM MANAGER E COMMERCE Result [facility] Dusty Bernal MD LAB POCT ORDERABLES - DEVICE F inal Result Performing Organization Address [facility] Co de Phone Number [facility] XIE [address] [address] [facility] [email or web address] [address] * POCT glucose (08/29/2024 1:57 AM MANAGER E COMMERCE) Glucose, POC 109 70 - 199 mg/dL Blood 08/29/2024 1:57 AM MANAGER E COMMERCE 08/29/2024 1:57 AM MANAGER E COMMERCE Result [facility] Dusty Bernal MD LAB POCT ORDERABLES - DEVICE F inal Result Performing Organization Address [facility] de Phone Number AZAM XIE [address] [address] [facility] [email or web address] [address] * POCT glucose (08/29/2024 12:32 AM MANAGER E COMMERCE) Glucose, POC 117 70 - 199 mg/dL Blood 08/29/2024 12:3 2 AM MANAGER E COMMERCE 08/29/2024 12:32 AM MANAGER E COMMERCE Result [facility] Dusty Bernal MD LAB POCT ORDERABLES - DEVICE F inal Result Performing Organization Address [facility] Phone Number AZAM [address] [place] [address] * Potassium, whole blood (08/29/2024 12:28 AM MANAGER E COMMERCE) Potassium, bld 4.1 3.3 - 4.9 mmol/L Comment: Interpretive Data This method is not able to assess for hemolysis, which may falsely increase potassium concentrations. If further testing is needed to evaluate this result, consider in-laboratory plasma potassium. Current Interpretive Data was last revised on 2022. Blood 08/29/2024 12:2 8 AM MANAGER E COMMERCE 08/29/2024 12:37 AM MANAGER E COMMERCE Dusty Bernal MD LAB BLOOD ORDERABLES Final Res ult AZAM XIE [address] [address] [facility] [employer] [place], [place] [id number] * Calcium, ionized, whole blood (08/29/2024 12:28 AM MANAGER E COMMERCE) Ca, ionized, bld 4.72 4.50 - 5.10 mg/dL Blood 08/29/2024 12:2 8 AM MANAGER E COMMERCE 08/29/2024 12:37 AM MANAGER E COMMERCE Dusty Bernal MD LAB BLOOD ORDERABLES Final Res ult Performing Organization Address [facility] Co de Phone Number AZAM XIE [address] [address] [facility] [place] [address] * (ABNORMAL) Blood gas, arterial (08/29/2024 12:28 AM MANAGER E COMMERCE) pH, Art 7.39 7.35 - 7.45 PCO2, [...] CERNER CH Blood 08/29/2024 12:2 8 AM MANAGER E COMMERCE 08/29/2024 12:37 AM MANAGER E COMMERCE Dusty Bernal MD LAB BLOOD ORDERABLES Final Res ult Performing Organization Address City/[facility]/ZIP Co de Phone Number AZAM XIE [address] [address] [facility] [email or web address] [address] * POCT glucose (08/28/2024 11:43 PM MANAGER E COMMERCE) Glucose, POC 103 70 - 199 mg/dL Blood 08/28/2024 11:4 3 PM MANAGER E COMMERCE 08/28/2024 11:43 PM MANAGER E COMMERCE Dusty Bernal MD LAB POCT ORDERABLES - DEVICE F inal Result Performing Organization Address [facility] de Phone Number AZAM XIE [address] [address] [email or web address] [address] * (ABNORMAL) Lactate (08/28/2024 11:02 PM MANAGER E COMMERCE) Lactate 4.2(C) 0.7 - 2.0 mmol/L Comment:Critical result call ed to and read back by Bradley Lu (_) on 08/28/2024 23:15:23 CST_ to Sara Gates_. Blood 08/28/2024 11:0 2 PM MANAGER E COMMERCE 08/28/2024 11:03 PM MANAGER E COMMERCE Dusty Bernal MD LAB BLOOD ORDERABLES Final Res ult Performing Organization Address [facility] Co de Phone Number AZAM XIE [address] [address] [email or web address] [address] * POCT glucose (08/28/2024 10:43 PM MANAGER E COMMERCE) Pathologist [facility] [place] Glucose, POC 138 70 - 199 mg/dL Blood 08/28/2024 10:4 3 PM MANAGER E COMMERCE 08/28/2024 10:43 PM MANAGER E COMMERCE Dusty Bernal MD LAB POCT ORDERABLES - DEVICE F inal Result Performing Organization Address [facility] [place] [address] [address] [facility] [email or web address] [address] * Potassium, whole blood (08/28/2024 9:44 PM MANAGER E COMMERCE) Pathologist [facility] [place] Potassium, bld 3.5 3.3 - 4.9 mmol/L Comment: Interpretive Data This method is not able to assess for hemolysis, which may falsely increase potassium concentrations. If further testing is needed to evaluate this result, consider in-laboratory plasma potassium. Current Interpretive Data was last revised on 2022. Blood 08/28/2024 9:44 PM MANAGER E COMMERCE 08/28/2024 9:48 PM MANAGER E COMMERCE Dusty Bernal MD LAB BLOOD ORDERABLES Final Res ult Performing Organization Address [facility] de Phone Number [facility] [address] [address] [facility] [email or web address] [address] * (ABNORMAL) Blood gas, arterial (08/28/2024 9:44 PM MANAGER E COMMERCE) pH, Art 7.40 7.35 - 7.45 PCO2, [...] 95 % CERNER Blood 08/28/2024 9:44 PM MANAGER E COMMERCE 08/28/2024 9:48 PM MANAGER E COMMERCE Dusty Bernal MD LAB BLOOD ORDERABLES Final Res ult Performing Organization Address [facility] de Phone Number [facility] [address] [address] [facility] [email or web address] [address] * POCT glucose (08/28/2024 9:41 PM MANAGER E COMMERCE) Glucose, POC 158 70 - 199 mg/dL Blood 08/28/2024 9:41 PM MANAGER E COMMERCE 08/28/2024 9:41 PM MANAGER E COMMERCE Dusty Bernal MD LAB POCT ORDERABLES - DEVICE F inal Result Performing Organization Address [facility] de Phone Number [facility] [address] [address] [facility] [email or web address] [address] * POCT glucose (08/28/2024 8:35 PM MANAGER E COMMERCE) Glucose, POC 188 70 - 199 mg/dL Blood 08/28/2024 8:35 PM MANAGER E COMMERCE 08/28/2024 8:35 PM MANAGER E COMMERCE Dusty Bernal MD LAB POCT ORDERABLES - DEVICE F inal Result Performing Organization Address [facility] de Phone Number AZAM XIE [address] [address] [email or web address] [address] * POCT glucose (08/28/2024 7:32 PM MANAGER E COMMERCE) Glucose, POC 186 70 - 199 mg/dL Blood 08/28/2024 7:32 PM MANAGER E COMMERCE 08/28/2024 7:32 PM MANAGER E COMMERCE Dusty Bernal MD LAB POCT ORDERABLES - DEVICE F inal Result Performing Organization Address [facility] [place] [address] [address] [email or web address] [address] * Critical Care (08/28/2024 7:29 PM MANAGER E COMMERCE) Narrative Ammy Caba MD - 08/28/2024 7:29 PM MANAGER E COMMERCE Stephan Jackson PA 08/29/2024 2:50 AM Critical [...] plan with the ICU team and other medical/heritage consultant staff, making frequent assessments and decisions [...] Result * POCT glucose (08/28/2024 6:31 PM MANAGER E COMMERCE) Glucose, POC 150 70 - 199 mg/dL Blood 08/28/2024 6:31 PM MANAGER E COMMERCE 08/28/2024 6:31 PM MANAGER E COMMERCE Dusty Bernal MD LAB POCT ORDERABLES - DEVICE F inal Result AZAM [address] [address] [address] * Calcium, ionized, whole blood (08/28/2024 6:30 PM MANAGER E COMMERCE) Pathologist [facility] [place] Ca, ionized, bld 4.57 4.50 - 5.10 mg/dL Blood 08/28/2024 6:30 PM MANAGER E COMMERCE 08/28/2024 6:31 PM MANAGER E COMMERCE Dusty Bernal MD LAB BLOOD ORDERABLES Final Res ult Performing Organization Address City/[facility]/ZIP Co de Phone Number AZAM [address] [address] [place] [address] * eGFR (08/28/2024 6:30 PM MANAGER E COMMERCE) eGFR >90 >=60 mL/min/1. 73 m2 Comment: [...] last reviewed 2021. Blood 08/28/2024 6:30 PM MANAGER E COMMERCE 08/28/2024 6:45 PM MANAGER E COMMERCE Dusty Bernal MD LAB BLOOD ORDERABLES Final Res ult AZAM [address] [address] [place] [address] * (ABNORMAL) CBC without differential (08/28/2024 6:30 PM MANAGER E COMMERCE) WBC 12.7(H) 3.8 - 9.9 K/cumm Hgb 9.5(L) 11.9 - 15.5 g/dL [facility] Hct 29.2(L) 35.6 - 45.5 % [facility] Plt 81(L) 150 - 400 K/cumm [facility] MPV 11.5 9.1 - 12.3 fL [facility] RBC 3.27(L) 3.90 - 5.20 M/cumm [facility] MCV 89.3 81.3 - 96.4 fL [facility] MCH 29.1 27.1 - 33.3 pg CERNER MCHC 32.5 32.3 - 35.7 g/dL [facility] RDW CV 13.7 11.1 - 14.9 % [facility] RDW SD 45.4 35.7 - 48.1 fL [facility] NRBC abs 0.00 0.00 - 0.01 K/cumm CERNER CH Blood 08/28/2024 6:30 PM MANAGER E COMMERCE 08/28/2024 6:35 PM MANAGER E COMMERCE Dusty Bernal MD LAB BLOOD ORDERABLES Final Res ult Performing Organization Address [facility] de Phone Number [facility] [address] [address] [place] [address] * (ABNORMAL) Blood gas, arterial (08/28/2024 6:30 PM MANAGER E COMMERCE) pH, Art 7.40 7.35 - 7.45 PCO2, [...] % CERNER CH Blood 08/28/2024 6:30 PM MANAGER E COMMERCE 08/28/2024 6:31 PM MANAGER E COMMERCE Dusty Bernal MD LAB BLOOD ORDERABLES Final Res ult Performing Organization Address [facility] de Phone Number [facility] [address] [address] [place] [address] * (ABNORMAL) Basic metabolic panel (08/28/2024 6:30 PM MANAGER E COMMERCE) Sodium 145 135 - 145 mmol/L Potassium, pl 4.3 3.3 - 4.9 mmol/L [facility] Chloride 114(H) 97 - 110 mmol/L CERNER CH CO2 18(L) 22 - 32 mmol/L CERNER Anion gap 13 2 - 15 mmol/L [facility] BUN 20 6 - 25 mg/dL [facility] Creatinine 0.51(L) 0.60 - 1.10 mg/dL [facility] Comment:Icteric sample, test results may be affected. [...] 2022. Calcium 7.8(L) 8.5 - 10.3 mg/dL [facility] Blood 08/28/2024 6:30 PM MANAGER E COMMERCE 08/28/2024 6:31 PM MANAGER E COMMERCE Dusty Bernal MD LAB BLOOD ORDERABLES Final Res ult Performing Organization Address [facility] Co de Phone Number [facility] [address] [address] [facility] [email or web address] [address] * POCT glucose (08/28/2024 6:00 PM MANAGER E COMMERCE) Glucose, POC 161 70 - 199 mg/dL Blood 08/28/2024 6:00 PM MANAGER E COMMERCE 08/28/2024 6:00 PM MANAGER E COMMERCE Dusty Bernal MD LAB POCT ORDERABLES - DEVICE F inal Result Performing Organization Address [facility] Co de Phone Number [facility] [address] [address] [email or web address] [address] * POCT glucose (08/28/2024 4:59 PM MANAGER E COMMERCE) Glucose, POC 137 70 - 199 mg/dL Blood 08/28/2024 4:59 PM MANAGER E COMMERCE 08/28/2024 4:59 PM MANAGER E COMMERCE Dusty Beranl MD LAB POCT ORDERABLES - DEVICE F inal Result Performing Organization Address [facility] Co de Phone Number [facility] [address] [address] [facility] [email or web address] [address] * XR Chest 1 View (08/28/2024 4:29 PM MANAGER E COMMERCE) Anatomical Region Laterality Modality Body, Chest N/A Computed Radiogr aphy 08/28/2024 4:43 PM MANAGER E COMMERCE Impressions 08/28/2024 4:43 PM MANAGER E COMMERCE 1. 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 2. Tubes and lines in place as described above. 3. The [place]-Jozef catheter doubles back on itself in the pulmonary outflow tract. 4. Hypoinflated lungs. Electronically signed by: Marv Fisher M.D. Narrative 08/28/2024 4:43 PM MANAGER E COMMERCE EXAM: XR CHEST 1 VIEW DATE: 08/28/2024 4:05 PM CLINICAL HISTORY: [place]-Jozef catheter retracted 4 cm. COMPARISON: Previous study from 08/28/2024. FINDINGS: Portable AP radiograph of the chest was obtained. There are postsurgical changes from a median sternotomy and mitral valve replacement. Endotracheal tube, right jugular [place]-Jozef catheter, left-sided chest tube and NG tube remain in place. The tip of the endotracheal tube is in good position. The [place]-Jozef catheter doubles back on itself in the pulmonary outflow tract. Previously, the catheter doubled back on itself in the proximal right pulmonary artery. The heart size is normal. The lungs are hypoinflated. No evidence of a pneumothorax or pleural effusion. Procedure Note Marv Fisher MD - 08/28/2024 EXAM: XR CHEST 1 VIEW DATE: 08/28/2024 4:05 PM CLINICAL HISTORY: [place]-Jozef catheter retracted 4 cm. COMPARISON: Previous study from 08/28/2024. FINDINGS: Portable AP radiograph of the chest was obtained. There are postsurgical changes from a median sternotomy and mitral valve replacement. Endotracheal tube, right jugular [place]-Jozef catheter, left-sided chest tube and NG tube remain in place. The tip of the endotracheal tube is in good position. The [place]-Jozef catheter doubles back on itself in the pulmonary outflow tract. Previously, the catheter doubled back on itself in the proximal right pulmonary artery. The heart size is normal. The lungs are hypoinflated. No evidence of a pneumothorax or pleural effusion. IMPRESSION: 1. 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 2. Tubes and lines in place as described above. 3. The [place]-Jozef catheter doubles back on itself in the pulmonary outflow tract. 4. Hypoinflated lungs. Electronically signed by: Marv Fisher M.D. Pily Escudero TECHNICAL PROFESSIONAL IMG XR PROCEDURES Final Result * Critical Care (08/28/2024 4:24 PM MANAGER E COMMERCE) Narrative Joel Moran MD - 08/28/2024 4:24 PM MANAGER E COMMERCE Pily Escudero NP 08/28/2024 4:24 PM Critical [...] plan with the ICU team and other medical/heritage consultant staff, making frequent assessments and decisions [...] documenting in the medical record Pily Escudero TECHNICAL PROFESSIONAL IN CLINIC/BEDSIDE ORDERA BLES Final Result * POCT glucose (08/28/2024 4:04 PM MANAGER E COMMERCE) Glucose, POC 116 70 - 199 mg/dL Blood 08/28/2024 4:04 PM MANAGER E COMMERCE 08/28/2024 4:04 PM MANAGER E COMMERCE Dusty Bernal MD LAB POCT ORDERABLES - DEVICE F inal Result AZAM [address] [address] [place] [address] * XR Chest 1 View - Portable (08/28/2024 3:37 PM MANAGER E COMMERCE) Anatomical Region Laterality Modality Body, Chest N/A Computed Radiogr aphy 08/28/2024 3:53 PM MANAGER E COMMERCE Impressions 08/28/2024 3:53 PM MANAGER E COMMERCE FINDINGS/IMPRESSION: Endotracheal tube terminates 4.1 cm from the autumn. Enteric tube is appropriately positioned. Pulmonary catheter catheter, mediastinal drain, and bilateral thoracostomy tubes are appropriately positioned. No pneumothorax or pleural effusion. Cardiomediastinal silhouette within normal limits. Poststernotomy changes are noted. No acute osseous abnormality. Electronically signed by: Deon Moreira II, D.O. Narrative 08/28/2024 3:53 PM MANAGER E COMMERCE EXAMINATION: XR CHEST 1 VIEW DATE: 08/28/2024 [...] Result * POCT glucose (08/28/2024 3:36 PM MANAGER E COMMERCE) Glucose, POC 124 70 - 199 mg/dL Blood 08/28/2024 3:36 PM MANAGER E COMMERCE 08/28/2024 3:36 PM MANAGER E COMMERCE us Dusty Bernal MD LAB POCT ORDERABLES - DEVICE F inal Result Performing Organization Address [facility] Co de Phone Number AZAM XIE [address] [address] [facility] [email or web address] [place], [place] [id number] * Calcium, ionized, whole blood (08/28/2024 3:24 PM MANAGER E COMMERCE) Ca, ionized, bld 5.05 4.50 - 5.10 mg/dL Blood 08/28/2024 3:24 PM MANAGER E COMMERCE 08/28/2024 3:53 PM MANAGER E COMMERCE Dusty Bernal MD LAB BLOOD ORDERABLES Final Res ult Performing Organization Address [facility] Co de Phone Number AZAM XIE [address] [address] [place] [address] * eGFR (08/28/2024 3:24 PM MANAGER E COMMERCE) eGFR >90 >=60 mL/min/1. 73 m2 Comment: [...] last reviewed 2021. Blood 08/28/2024 3:24 PM MANAGER E COMMERCE 08/28/2024 3:55 PM MANAGER E COMMERCE Dusty Bernal MD LAB BLOOD ORDERABLES Final Res ult Performing Organization Address [facility] Co de Phone Number AZAM XIE [address] [address] [place] [address] * aPTT (08/28/2024 3:24 PM MANAGER E COMMERCE) aPTT 31 28 - 38 sec Comment: Interpretive Data Heparin therapeutic range: 66.0 - 100.0 seconds. Range based on correlation with therapeutic heparin activity range of 0.3 - 0.7 Units/mL. Current interpretive data was last revised on 2023. Blood 08/28/2024 3:24 PM MANAGER E COMMERCE 08/28/2024 3:53 PM MANAGER E COMMERCE Dusty Bernal MD LAB BLOOD ORDERABLES Final Res ult Performing Organization Address [facility] de Phone Number AZAM XIE [address] [place] [address] * (ABNORMAL) Protime-INR (08/28/2024 3:24 PM MANAGER E COMMERCE) PT 16.5(H) 9.7 - 13.0 sec INR 1.51(H) 0.90 - 1.20 AZAM XIE Comment: Interpretive data Oral anticoagulant therapeutic ranges: Venous thromboembolism prophylaxis or treatment: 2.0-3.0 CARDIOLOGY Standard range: 2.0-3.0 High-intensity range: 2.5-3.5 Refer to indication-specific guidelines for appropriate target ranges for prosthetic heart valve replacement. Current interpretive data was last revised on 2019. Blood 08/28/2024 3:24 PM MANAGER E COMMERCE 08/28/2024 3:53 PM MANAGER E COMMERCE Dusty Bernal MD LAB BLOOD ORDERABLES Final Res ult Performing Organization Address [facility] Co de Phone Number AZAM XIE [address] [address] [facility] [employer] [place], [place] [id number] * (ABNORMAL) CBC without differential (08/28/2024 3:24 PM MANAGER E COMMERCE) WBC 21.7(H) 3.8 - 9.9 K/cumm Hgb 10.9(L) 11.9 - 15.5 g/dL [facility] Hct 33.5(L) 35.6 - 45.5 % [facility] Plt 95(L) 150 - 400 K/cumm [facility] MPV 12.4(H) 9.1 - 12.3 fL [facility] RBC 3.73(L) 3.90 - 5.20 M/cumm [facility] MCV 89.8 81.3 - 96.4 fL [facility] MCH 29.2 27.1 - 33.3 pg CERNER CH MCHC 32.5 32.3 - 35.7 g/dL [facility] RDW CV 13.8 11.1 - 14.9 % [facility] RDW SD 45.1 35.7 - 48.1 fL [facility] NRBC abs 0.00 0.00 - 0.01 K/cumm [facility]ERN[facility] CH Blood 08/28/2024 3:24 PM MANAGER E COMMERCE 08/28/2024 3:53 PM MANAGER E COMMERCE Dusty Bernal MD LAB BLOOD ORDERABLES Final Res ult Performing Organization Address City/[facility]/ZIP Co de Phone Number AZAM ROJAS [address] [address] Department of [email or web address] [place], [place] [id number] * Phosphorus (08/28/2024 3:24 PM MANAGER E COMMERCE) Phosphorus, pl 3.5 2.3 - 4.5 mg/dL Blood 08/28/2024 3:24 PM MANAGER E COMMERCE 08/28/2024 3:53 PM MANAGER E COMMERCE Pily Escudero NP LAB BLOOD ORDERABLES Fin al Result Performing Organization Address City/[facility]/ZIP Co de Phone Number [facility] [address] [address] [email or web address] [address] * (ABNORMAL) Magnesium (08/28/2024 3:24 PM MANAGER E COMMERCE) Magnesium 3.0(H) 1.4 - 2.5 mg/dL Blood 08/28/2024 3:24 PM MANAGER E COMMERCE 08/28/2024 3:53 PM MANAGER E COMMERCE Dusty Bernal MD LAB BLOOD ORDERABLES Final Res ult Performing Organization Address [facility] de Phone Number AZAM XIE [address] [address] [place] [address] * (ABNORMAL) Blood gas, arterial (08/28/2024 3:24 PM MANAGER E COMMERCE) pH, Art 7.36 7.35 - 7.45 PCO2, [...] % CERNER CH Blood 08/28/2024 3:24 PM MANAGER E COMMERCE 08/28/2024 3:53 PM MANAGER E COMMERCE Dusty Bernal MD LAB BLOOD ORDERABLES Final Res ult Performing Organization Address [facility] de Phone Number AZAM XIE [address] [address] Department [email or web address] [address] * (ABNORMAL) Basic metabolic panel (08/28/2024 3:24 PM MANAGER E COMMERCE) Sodium 145 135 - 145 mmol/L Potassium, [...] mg/dL CERNER CH Blood 08/28/2024 3:24 PM MANAGER E COMMERCE 08/28/2024 3:53 PM MANAGER E COMMERCE Dusty Bernal MD LAB BLOOD ORDERABLES Final Res ult Performing Organization Address [facility]/ZIP Co de Phone Number AZAM XIE [address] [address] [email or web address] [address] * POCT glucose (08/28/2024 2:59 PM MANAGER E COMMERCE) Glucose, POC 103 70 - 199 mg/dL Blood 08/28/2024 2:59 PM MANAGER E COMMERCE 08/28/2024 2:59 PM MANAGER E COMMERCE Dusty Bernal MD LAB POCT ORDERABLES - DEVICE F inal Result Performing Organization Address [facility] Co de Phone Number [facility] [address] [address] Department [email or web address] [address] * (ABNORMAL) POC Blood Gas and Chemistries, Arterial - (08/28/2024 2:00 PM MANAGER E COMMERCE) pH, Art POC 7.32(L) 7.35 - 7.45 [...] g/dL CERNER CH Blood 08/28/2024 2:00 PM MANAGER E COMMERCE 08/28/2024 2:00 PM MANAGER E COMMERCE Dusty Bernal MD LAB POCT ORDERABLES - DEVICE F inal Result Performing Organization Address [facility] Co de Phone Number [facility] [address] [address] [email or web address] [address] * POC Activated Clotting Time, High Range (08/28/2024 1:57 PM MANAGER E COMMERCE) ACT 109 87 - 138 sec Blood 08/28/2024 1:57 PM MANAGER E COMMERCE 08/28/2024 1:57 PM MANAGER E COMMERCE Dusty Bernal MD LAB BLOOD ORDERABLES Final Res ult Performing Organization Address [facility]/ZIP Co de Phone Number [facility] [address] [address] [email or web address] [address] * Transfuse RBC (08/28/2024 1:34 PM MANAGER E COMMERCE) Blood Jorge Dyson MD BLOOD TRANSFUSION ORDERABLES F inal Result Performing Organization Address City/[facility]/ZIP Co de Phone Number AZAM XIE [address] [address] [place] [address] * (ABNORMAL) POC Blood Gas and Chemistries, Arterial - (08/28/2024 1:20 PM MANAGER E COMMERCE) Pathologist [facility] [place] pH, Art POC 7.33(L) 7.35 - 7.45 [...] g/dL [facility]ERNER CH Blood 08/28/2024 1:20 PM MANAGER E COMMERCE 08/28/2024 1:20 PM MANAGER E COMMERCE Dusty Bernal MD LAB POCT ORDERABLES - DEVICE F inal Result AZAM XIE [address] [address] [place] [address] * (ABNORMAL) POC Activated Clotting Time, High Range (08/28/2024 1:18 PM MANAGER E COMMERCE) ACT 561(H) 87 - 138 sec Blood 08/28/2024 1:18 PM MANAGER E COMMERCE 08/28/2024 1:18 PM MANAGER E COMMERCE Dusty Bernal MD LAB BLOOD ORDERABLES Final Res ult [facility] [address] [address] [place] [address] * (ABNORMAL) POC Blood Gas and Chemistries, Arterial - (08/28/2024 12:50 PM MANAGER E COMMERCE) Pathologist [facility] [place] pH, Art POC 7.36 7.35 - 7.45 [...] [facility]ERNER CH Blood 08/28/2024 12:5 0 PM MANAGER E COMMERCE 08/28/2024 12:50 PM MANAGER E COMMERCE Dusty Bernal MD LAB POCT ORDERABLES - DEVICE F inal Result Performing Organization Address [facility] Co de Phone Number AZAM XIE [address] [address] [facility] [email or web address] [address] * (ABNORMAL) POC Activated Clotting Time, High Range (08/28/2024 12:48 PM MANAGER E COMMERCE) ACT 758(H) 87 - 138 sec Blood 08/28/2024 12:4 8 PM MANAGER E COMMERCE 08/28/2024 12:48 PM MANAGER E COMMERCE Dusty Bernal MD LAB BLOOD ORDERABLES Final Res ult Performing Organization Address [facility] Co de Phone Number AZAM XIE [address] [address] [facility] [email or web address] [address] * (ABNORMAL) Platelet count (08/28/2024 12:27 PM MANAGER E COMMERCE) Pathologist [facility] [place] Plt 116(L) 150 - 400 K/cumm Blood 08/28/2024 12:2 7 PM MANAGER E COMMERCE 08/28/2024 12:30 PM MANAGER E COMMERCE Narrative [facility] - 08/28/2024 12:34 PM MANAGER E COMMERCE Please call results to ext. [phone]. Thanks. Dusty Bernal MD LAB BLOOD ORDERABLES Final Res ult Performing Organization Address [facility] Co de Phone Number AZAM XIE [address] [address] [email or web address] [address] * (ABNORMAL) POC Blood Gas and Chemistries, Arterial - (08/28/2024 12:21 PM MANAGER E COMMERCE) pH, Art POC 7.39 7.35 - 7.45 [...] [facility]ER CH Blood 08/28/2024 12:2 1 PM MANAGER E COMMERCE 08/28/2024 12:21 PM MANAGER E COMMERCE Dusty Bernal MD LAB POCT ORDERABLES - DEVICE F inal Result Performing Organization Address [facility] Co de Phone Number AZAM XIE [address] [place] [address] * (ABNORMAL) POC Activated Clotting Time, High Range (08/28/2024 12:18 PM MANAGER E COMMERCE) ACT >1,005(H) 87 - 138 sec Blood 08/28/2024 12:1 8 PM MANAGER E COMMERCE 08/28/2024 12:18 PM MANAGER E COMMERCE Dusty Bernal MD LAB BLOOD ORDERABLES Final Res ult Performing Organization Address [facility]/ZIP Co de Phone Number AZAM ROJAS [address] [address] Department [place], [place] [id number] * (ABNORMAL) POC Blood Gas and Chemistries, Arterial - (08/28/2024 11:41 AM MANAGER E COMMERCE) pH, Art POC 7.36 7.35 - 7.45 [...] CERNER CH Blood 08/28/2024 11:4 1 AM MANAGER E COMMERCE 08/28/2024 11:41 AM MANAGER E COMMERCE Dusty Bernal MD LAB POCT ORDERABLES - DEVICE F inal Result Performing Organization Address [facility] Co de Phone Number AZAM XIE [address] [place] [address] * (ABNORMAL) POC Activated Clotting Time, High Range (08/28/2024 11:39 AM MANAGER E COMMERCE) ACT >1,005(H) 87 - 138 sec Blood 08/28/2024 11:3 9 AM MANAGER E COMMERCE 08/28/2024 11:39 AM MANAGER E COMMERCE Dusty Bernal MD LAB BLOOD ORDERABLES Final Res ult Performing Organization Address City/[facility]/ZIP Co de Phone Number AZAM XIE [address] [address] [place] [address] * (ABNORMAL) POC Blood Gas and Chemistries, Arterial - (08/28/2024 11:10 AM MANAGER E COMMERCE) pH, Art POC 7.36 7.35 - 7.45 [...] CERNER CH Blood 08/28/2024 11:1 0 AM MANAGER E COMMERCE 08/28/2024 11:10 AM MANAGER E COMMERCE Dusty Bernal MD LAB POCT ORDERABLES - DEVICE F inal Result AZAM XIE [address] [place] [address] * (ABNORMAL) POC Activated Clotting Time, High Range (08/28/2024 11:07 AM MANAGER E COMMERCE) Pathologist [facility] [place] ACT 571(H) 87 - 138 sec Blood 08/28/2024 11:0 7 AM MANAGER E COMMERCE 08/28/2024 11:07 AM MANAGER E COMMERCE Dusty Bernal MD LAB BLOOD ORDERABLES Final Res ult CERNER [address] [place] [address] * (ABNORMAL) POC Blood Gas and Chemistries, Arterial - (08/28/2024 10:39 AM MANAGER E COMMERCE) pH, Art POC 7.39 7.35 - 7.45 [...] CERNER CH Blood 08/28/2024 10:3 9 AM MANAGER E COMMERCE 08/28/2024 10:39 AM MANAGER E COMMERCE Dusty Bernal MD LAB POCT ORDERABLES - DEVICE F inal Result AZAM XIE [address] [address] [email or web address] [address] * (ABNORMAL) POC Activated Clotting Time, High Range (08/28/2024 10:37 AM MANAGER E COMMERCE) ACT 791(H) 87 - 138 sec Blood 08/28/2024 10:3 7 AM MANAGER E COMMERCE 08/28/2024 10:37 AM MANAGER E COMMERCE us Dusty Bernal MD LAB BLOOD ORDERABLES Final Res ult Performing Organization Address [facility] Co de Phone Number AZAM XIE [address] [address] [place] [address] * (ABNORMAL) POC Blood Gas and Chemistries, Arterial - (08/28/2024 9:52 AM MANAGER E COMMERCE) pH, Art POC 7.32(L) 7.35 - 7.45 [...] g/dL CERNER CH Blood 08/28/2024 9:52 AM MANAGER E COMMERCE 08/28/2024 9:52 AM MANAGER E COMMERCE Dusty Bernal MD LAB POCT ORDERABLES - DEVICE F inal Result Performing Organization Address [facility] Co de Phone Number AVAVLAD XIE [address] [address] [facility] [email or web address] [address] * (ABNORMAL) POC Activated Clotting Time, High Range (08/28/2024 9:50 AM MANAGER E COMMERCE) ACT >1,005(H) 87 - 138 sec Blood 08/28/2024 9:50 AM MANAGER E COMMERCE 08/28/2024 9:50 AM MANAGER E COMMERCE Dusty Bernal MD LAB BLOOD ORDERABLES Final Res ult Performing Organization Address [facility] Co de Phone Number AVAVLAD XIE [address] [address] [facility] [email or web address] [address] * (ABNORMAL) POC Activated Clotting Time, High Range (08/28/2024 8:51 AM MANAGER E COMMERCE) ACT 556(H) 87 - 138 sec Blood 08/28/2024 8:51 AM MANAGER E COMMERCE 08/28/2024 8:51 AM MANAGER E COMMERCE Dusty Bernal MD LAB BLOOD ORDERABLES Final Res ult Performing Organization Address [facility] Co de Phone Number AVAVLAD XIE [address] [address] [facility] [email or web address] [address] * (ABNORMAL) POC Blood Gas and Chemistries, Arterial - (08/28/2024 8:51 AM MANAGER E COMMERCE) pH, Art POC 7.38 7.35 - 7.45 [...] g/dL CERNER CH Blood 08/28/2024 8:51 AM MANAGER E COMMERCE 08/28/2024 8:51 AM MANAGER E COMMERCE Dusty Bernal MD LAB POCT ORDERABLES - DEVICE F inal Result CERNER [address] [facility] [place] [address] * Prepare RBC: 4 Units (08/28/2024 8:02 AM MANAGER E COMMERCE) Pathologist [facility] [place] Product code [id number] CERNER CH Unit Number [id number] CERNER CH Product Blood Type BPOS CERNER CH Dispense Status PRESUMED TRANSFUSED CERNER CH Product code [id number] CERNER CH Unit Number [id number] CERNER CH Product Blood Type BPOS CERNER CH Dispense Status RETURNED CERNER CH Product code [id number] CERNER CH Unit Number [id number] CERNER CH Product Blood Type BPOS CERNER CH Dispense Status RETURNED CERNER CH Product code [id number] Unit Number [id number] AZAM Product Blood Type BPOS [facility] Dispense Status RETURNED [facility] Blood 08/28/2024 8:02 AM MANAGER E COMMERCE Narrative AZAM - 08/29/2024 12:28 AM MANAGER E COMMERCE Are special requirements needed? (All products are leukoreduced and CMV- safe)- >No Date required:-[id number] LRRBC # of [id number] Reasons:-Intra-op transfusion} us Dusty Bernal MD BLOOD BANK PRODUCT ORDERABLES Final Result [facility] [address] [place] [address] * BW AN SHEATH INTRODUCER PERFORMABLE, PULMONARY ARTERY CATH (08/28/2024 7:59 AM MANAGER E COMMERCE) Narrative Atilio Pressley AA - 08/28/2024 7:59 AM MANAGER E COMMERCE Atilio Pressley AA 08/28/2024 8:00 AM Central [...] MD ANESTHESIA ORDERABLES Final Re sult * AR AN ELECTIVE ENDOTRACHEAL AIRWAY (08/28/2024 7:59 AM MANAGER E COMMERCE) Narrative Atilio Pressley AA - 08/28/2024 7:59 AM MANAGER E COMMERCE Atilio Pressley, MARIA T 08/28/2024 7:59 AM Airway Patient location: OR [...] and Chemistries, Arterial - (08/28/2024 7:56 AM MANAGER E COMMERCE) pH, Art POC 7.46(H) 7.35 - 7.45 [...] g/dL CERNER CH Blood 08/28/2024 7:56 AM MANAGER E COMMERCE 08/28/2024 7:56 AM MANAGER E COMMERCE Dusty Bernal MD LAB POCT ORDERABLES - DEVICE F inal Result Performing Organization Address [facility] Co de Phone Number AVAVLAD XIE [address] [address] Department [place] [address] * POC Activated Clotting Time, High Range (08/28/2024 7:54 AM MANAGER E COMMERCE) ACT 104 87 - 138 sec Blood 08/28/2024 7:54 AM MANAGER E COMMERCE 08/28/2024 7:54 AM MANAGER E COMMERCE Dusty Bernal MD LAB BLOOD ORDERABLES Final Res ult Performing Organization Address [facility] Co de Phone Number AVAVLAD [address] [address] [email or web address] [address] * Arterial Line (08/28/2024 7:28 AM MANAGER E COMMERCE) Narrative Atilio Pressley AA - 08/28/2024 7:28 AM MANAGER E COMMERCE de Atilio Tello AA 08/28/2024 7:29 AM Arterial Line Patient [...] sult * Hemoglobin A1c (07/31/2024 9:09 AM MANAGER E COMMERCE) Pathologist [facility] [place] Hgb A1C 5.3 4.0 - 5.6 % Estimated Average Glucose 105 mg/dL AZAM XIE Comment: The ADA recommends reporting an estimated Average Glucose (eAG) with all Hemoglobin A1c results using the equation derived from a study of 507 normal and diabetic adults. Minority populations were underrepresented and children were not included. (Diabetes Care 31:9113-5133, 2008). The eAG is not equivalent to a fasting glucose. Blood 07/31/2024 9:09 AM MANAGER E COMMERCE 07/31/2024 9:35 AM MANAGER E COMMERCE Fidelia Samuels TECHNICAL PROFESSIONAL LAB BLOOD ORDERABLES Final Res ult Performing Organization Address [facility]/ZIP Co de Phone Number [facility] [address] [place] [address] * (ABNORMAL) Lipid panel (06/10/2024) Pathologist [facility] [place] SCRIBED Cholesterol, Total 196 < - 200 EXTERNAL LAB SCRIBED HDL 56(A) > - 40 EXTERNAL LAB SCRIBED LDL 112(A) < - 100 EXTERNAL LAB SCRIBED Triglycerides 95 < - 150 EXTERNAL LAB Blood 06/10/2024 Gunjan Provider LAB BLOOD ORDERABLES Randa l Result EXTERNAL LAB from Last 3 Months or Most Recently Relevant to Health Maintenance Insurance [employer] MEDICARE AET MEDICARE Advance Directives For more information, please contact: [phone] Documents on File Type Date Recorded Patient Airbrush Artist Technical Expl anation ADVANCE DIRECTIVE 09/11/2024 1:01 PM POWER OF PLANNING AIDE-MEDICAL * Full Code (Latest Code Status on File) Date Activated Date Inactivated Comments 08/28/2024 3:22 PM 09/10/2024 5:56 PM Care Teams It Infrastructure Consultant Relationship Specialty Start Date End Date Meme Richardson DO [address] [facility] [address] [address] PCP - General Family Medicine 09/10/24 Dusty Bernal MD [id number] [place] [address] Surgeon Cardiothoracic Surgery 09/10/24 Brendan Pool MD [address] [address] Consulting Physician Cardiology 09/10/24 Miscellaneous, Not In File 09/10/24
== END 2024-11-19 10:13 | disposition home or self-care (01) ==
PROVIDERS: PCP Family Medicine; Visit Provider Nurse Practitioner Adult Health
DX: J98.11 Atelectasis (principal); J18.9 Pneumonia, unspecified organism; J90 Pleural effusion, not elsewhere classified; Z95.1 Presence of aortocoronary bypass graft
CPT/HCPCS: 71046

== ENCOUNTER 2024-12-25 11:04 | Outpatient (CLI) | payer MEDICARE, SELFPAY ==
--- NOTE | ~2024-12-25 | XR_ITS ---
Clinical Indication: Pneumonia PA and lateral views of the chest: Comparison: 11/19/2024 Findings: Small left pleural effusion with left basilar consolidation present. Stable elevation left hemidiaphragm. Right lung clear. Cardiomediastinal silhouette is stable. Bones and soft tissues are unremarkable. Impression: Small left pleural effusion with left basilar atelectasis versus pneumonia. Stable elevation left hemidiaphragm. Stable cardiomegaly, with evidence of prior cardiac surgery. Reviewed, dictated and finalized at location . Impression: Small left pleural effusion with left basilar atelectasis versus pneumonia. Stable elevation left hemidiaphragm. Stable cardiomegaly, with evidence of prior cardiac surgery.
--- OUTSIDE RECORDS SUMMARY | 2024-12-25 11:30 | XMS_ITS | Clinical Summary ---
Author Organization [facility] [address] Address [address] [place] [address] Care Team Providers Care Marine Animal Trainer Name Role Phone Meme Richardson DO Primary Care Provider [phone] Dusty Bernal MD Unavailable [phone] Brendan Pool MD Unavailable Miscellaneous, Not In File Unavailable Unava ilable Allergies Active Allergy Reactions Criticality Noted Date Comments Niacin Headache Low 07/10/2024 Itshrjn-Sqy-Cex Reductase Inhibitors Other (See comments) Low 07/10/2024 Certain statins caused muscle weakness Medications cholecalciferol, vitamin D3, 1,000 unit tablet,chewableI ndications:suppl ement Take 1 tablet/chew tab by mouth special inspector before breakfast Active atorvastatin (LIPITOR) 40 mg tabletIndication s:hyperlipidemia Take 1 tablet (40 mg total) by mouth daily 90 tablet 3 4 Active cetirizine 10 mg capsuleIndicatio ns:Allergic Rhinitis Take 1 tablet by mouth special inspector before breakfast Active fluticasone propionate (FLONASE) 50 mcg/actuation nasal sprayIndications :Allergic Rhinitis Administer 1 spray into each nostril daily Active acetaminophen 500 mg capsuleIndicatio ns:Fever,Pain,mi ld to moderate pain Take 2 capsules (1,000 mg total) by mouth every 6 (six) hours as needed for fever or pain 5 Active famotidine (PEPCID) 20 mg tabletIndication s:gastroesophage al reflux disease TAKE 1 TABLET(20 MG) BY MOUTH DAILY 90 tablet 1 5 Active glycerin suppositoryIndic ations:constipat ion Insert 1 suppository into the rectum daily as needed for constipation over the counter med Active simethicone (MYLICON) 125 mg chewable tabletIndication s:Flatulence Take 1 tablet (125 mg total) by mouth every 6 (six) hours as needed for flatulence 5 Active clopidogreL (PLAVIX) 75 mg tabletIndication s:Myocardial Reinfarction Prevention TAKE 1 TABLET(75 MG) BY MOUTH DAILY 30 tablet 2 5 Active apixaban (Eliquis) 5 mg tabletIndication s:VTE Prophylaxis TAKE 1 TABLET(5 MG) BY MOUTH TWICE DAILY 60 tablet 2 5 Active psyllium (KONSYL) powderIndication s:constipation Take 1 Application by mouth daily. Indications: constipation 5 Active senna-docusate (Senna-S) 8.6-50 mg Take 1 tablet by mouth daily 5 Active lidocaine (LIDODERM) 5 % Place 1 patch on the skin daily Remove & discard patch within 12 hours or as directed by MD. 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 06/28/2024 Encounters Date Type Department Care Team Description 12/25/2024 Telephone [facility] Card[facility] [address] [place] [address] Brendan Pool MD 11/20/2024 1:00 PM CDT Ancillary Procedure [facility] Cardiology [address] [place] [address] [place] [address] [phone] Shortness of breath 11/20/2024 Telephone [place] [address] [place] [address] [phone] Trina Rodriguez NP 11/20/2024 Results Follow-Up [place] [address] [place] [phone] Trina Rodriguez NP 11/19/2024 9:00 AM CDT Office Visit [place] [address] [place] [phone] Trina Rodriguez NP Shortness of breath (Primary Dx); Fatigue, unspecified type; 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; S/P CABG x 4; Status post mitral valve annuloplasty; Statin myopathy; Paroxysmal atrial fibrillation (HCC); Chronic anticoagulation 11/19/2024 Telephone [place] [address] [place] [address] [phone] Brendan Pool MD 10/23/2024 11:00 AM CDT Home Care Visit [place] [address] [address] [place] [address] Swathi Pepper RN SN OASIS DISCHARGE 10/15/2024 1:00 PM CIVIL TECHNICIAN Home Care Visit [place] [address] [place] [address] Swathi Pepper RN SN HOME VISIT 10/12/2024 Telephone [place] [address] [place] [phone] Brendan Pool MD 10/11/2024 8:30 AM CIVIL TECHNICIAN Home Care Visit [place] [address] [place] [address] Mary, Angelica L., PT PT DISCIPLINE DISCHARGE 10/10/2024 1:00 PM CIVIL TECHNICIAN Office Visit [facility] Cardiology [address] [place] [address] [address] [place] [phone] Brendan Pool MD 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 (Primary Dx); History of ST elevation myocardial infarction (STEMI); S/P CABG x 4; Status post mitral valve annuloplasty; Paroxysmal atrial fibrillation (HCC) 10/08/2024 10:00 AM CIVIL TECHNICIAN Home Care Visit [address] [place] [address] Swathi Pepper RN SN HOME VISIT 10/08/2024 8:30 AM CIVIL TECHNICIAN Home Care Visit [address] [place] [address] Angelica Hernandez, PT PT HOME VISIT 10/04/2024 8:30 AM CIVIL TECHNICIAN Home Care Visit [address] [place] [address] Angelica Hernandez, PT PT HOME VISIT 10/03/2024 Home Care Visit [address] [place] [address] Adrienne Caldera RN SN TRIAGE ENCOUNTER 10/03/2024 Telephone [facility] Cardiology [address] [place] [address] [address] [place] [phone] Brendan Pool MD 10/01/2024 2:00 PM CIVIL TECHNICIAN Home Care Visit [address] [place] [address] Daily Melendez RN SN HOME VISIT 10/01/2024 8:30 AM CIVIL TECHNICIAN Home Care Visit [address] [place] [address] Angelica Hernandez, PT PT HOME VISIT 09/28/2024 10:00 AM CIVIL TECHNICIAN Home Care Visit [address] [place] [address] Angelica Hernandez, PT PT HOME VISIT 09/27/2024 12:45 PM CIVIL TECHNICIAN Office Visit [facility] [address] [facility] [address] [place] [address] Dusty Bernal MD Pleural effusion on left (Primary Dx) 09/27/2024 11:05 AM CIVIL TECHNICIAN - 09/27/2024 11:59 PM CIVIL TECHNICIAN Hospital Encounter [facility] [address] [place] [address] Pleural effusion on left Discharge Disposition: Discharge to home or self care from Last 3 Months Surgical History Surgery [...] disturbance STEMI (ST elevation myocardi al infarction) ([facility]) 06/10/2024 CAD (coronary artery disease) 06/10/2024 [...] materials from doctor or pharmacy Never 10/23/2024 C Utilities Answer Date Recorded In the past 12 months has th e [employer] gas, oil, or water [employer] threatened to shut off services in your [...] often do you attend chur ch or orthodoxy services? More than 4 times per year 08/30/2024 Do you belong to any clubs o r organizations such as pentecostalism groups, unions, fraternal or athletic groups, or [...] any time in the past 12 m [facility], were you homeless or living in a senior living (including now)? No 08/30/2024 Personal Safety Answer [...] 06/10/2024 Fall Risk Assessment 09/10/2025 09/10/2024 eGFR 11/19/2025 11/19/2024, 02/0 08/2024, 09/10/2024, Additional history exists Zoster Vaccine Completed 11/03/2023, 08/15, 10/18/2016 Influenza Vaccine Completed 05/14/2024, , 05/24/2022, Additional history exists Medical Devices Implanted Type Area Director Of Collections Device Identifier Shelf Expiration Date Model / Serial / Lot [employer] Chente-Mcca rthy-Orozco Imr Etlogix 28mm 3d Reduced Curvature [id number] - [id number] - [id number] Implanted:Qty: 1 on 08/28/2024 by Dusty Bernal MD at [facility] Other - see comments N/A: Heart [employer] 08/30/2028 [id number] / [id number] / [employer] Plate Bone Low Profile 6 Hole O Shape Sternum Ti 115.104.06 - [id number] Implanted:Qty: 1 on 08/28/2024 by Dusty Bernal MD at [facility] Plate N/A: Sternum [employer] 115.104. 06 / / [employer] Plate Bone Low Profile 6 Hole H Shape Sternum Ti 115.102.06 - [id number] Implanted:Qty: 1 on 08/28/2024 by Dusty Bernal MD at [facility] Plate N/A: Sternum [employer] 115.102. 06 / / [employer] Plate Bone Low Profile 4 Hole Box Sternum Ti 115.103.04 - [id number] Implanted:Qty: 1 on 08/28/2024 by Dusty Bernal MD at [facility] Plate N/A: Sternum [employer] 115.103. 04 / / [employer] Screw Bone Slf Drl Full Thread Locking 3.5x18mm Ti 100.035.18 - [id number] Implanted:Qty: 2 on 08/28/2024 by Dusty Bernal MD at [facility] Screw N/A: Sternum [employer] 100.035. 18 / / [employer] Screw Bone Slf Drl Full Thread Locking 3.5x16mm Ti 100.035.16 - [id number] Implanted:Qty: 14 on 08/28/2024 by Dusty Bernal MD at [facility] N/A: Sternum [employer] 100.035. 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 XR CHEST PA LATERAL 2 VIEWS Schedule Routine, Read Routine (OP Routine) 09/27/2024 11:22 AM CIVIL TECHNICIAN Pleural effusion on left HEMOGLOBIN A1C Routine 07/31/2024 9:09 AM CIVIL TECHNICIAN Encounter for preadmission testing 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) LIPID PANEL Routine 06/10/2024 from Last 3 Months or Most Recently Relevant to Health Maintenance Results * TRANSTHORACIC ECHO (TTE) COMPLETE W DOPPLER/CF WO CONTRAST (11/20/2024 1:23 PM CDT) LV EF 60 % CONS SCIMAGE Anatomical Region Laterality Modality Ultrasound 11/20/2024 12:5 6 PM CDT Narrative 11/20/2024 3:31 PM CDT [facility] [address], [place] [address] [address] [facility] [address], [place] [address] P:[phone] P:[phone] Echocardiographic Report Patient Name: MICHELLE HENRY AN : 1945 Study Date: 11/20/2024 12:56:39 PM Gender: F Tech: Location: [facility] Provider: TRINA RODRIGUEZ Height(Cm): 155 BSA: 1.65 Weight(Kg): 63.5 Heart Rate: 53 BP: 134 / 64 Quality: Good Order Provider: TRINA RODRIGUEZ PROCEDURES: Echocardiographic Report: Transthoracic echocardiogram with complete 2D, M-Mode, and color Doppler examination. With Strain Analysis. INDICATIONS: S/P CABG and S/P Mitral Valve Repair- 08/2024 and R06.02 Shortness of breath. MEASUREMENTS: 2D/MM Value Range Doppler Value Range EF Mod BP 52 % [ 54 - 74 ] SANAZ Vmax 1.94 cm2 [ 2.00 - 4.00 ] Estimated EF 60 % AV Mean PG 6 mmHg LVIDd 2D 4.64 cm [ 3.80 - 5.20 ] AV Peak Salvatore 1.67 m/s [ 1.00 - 1.70 ] LVIDd MM 5.61 cm [ 3.80 - 5.20 ] AV Peak PG 11 mmHg LVIDs 2D 3.83 cm [ 2.20 - 3.50 ] AV VTI 34.29 cm LVIDs MM 4.44 cm [ 2.20 - 3.50 ] LVOT Diam 2.03 cm [ 1.70 - 2.10 ] LVPWd 2D 0.75 cm [ 0.60 - 0.90 ] LVOT Peak Salvatore 0.99 m/s [ 0.70 - 1.10 ] LVPWd MM 0.67 cm [ 0.60 - 0.90 ] LVOT VTI 18.89 cm IVSd 2D 1.11 cm [ 0.60 - 0.90 ] MV E Peak Salvatore 1.16 m/s [ 0.60 - 1.30 ] IVSd MM 0.64 cm [ 0.60 - 0.90 ] MV A Peak Salvatore 1.16 m/s [ 1.00 - 1.20 ] LA Dimension MM 5.15 cm [ 2.70 - 3.80 ] MV Mean PG 2 mmHg [ 0 - 5 ] AoR Diam MM 3.74 cm [ 2.70 - 3.70 ] MV PHT 65 msec [ 20 - 100 ] LA Volume Index 64 cc/m2 [ 16 - 34 ] MVA PHT 3.40 cm2 [ 2.00 - 4.00 ] ACS MM 1.65 cm MV Decel Time 266 msec [ 104 - 258 ] PV Peak Salvatore 0.75 m/s [ 0.40 - 0.80 ] TR Peak Salvatore 2.30 m/s [ 1.00 - 2.80 ] TR Peak PG 21 mmHg RVSP 36.00 mmHg [ 10.00 - 36.00 ] Lateral E` 0.06 m/s [ 0.10 - 0.15 ] E` 0.04 m/s E/E` 20 2D/MM Value Range Doppler Value Range - FINDINGS: Interpretation Site: Exam was interpreted at [facility]. Left Ventricle: Mild enlargement of left ventricle cavity. Normal global left ventricular systolic function. Paradoxical septal motion consistent with post pericardectomy status. Impaired diastolic relaxation Grade I. Ejection fraction is measured at 52 %. Ejection Fraction is visually estimated to be 60 %. Global Longitudinal Strain is -16 %. Right Ventricle: Normal right ventricular size. Left Atrium: There is moderate enlargement of left atrium. Right Atrium: The right atrium is normal in size. Atrial Septum: Normal atrial septum. Mitral Valve: Annular region thickened with prior annuloplasty. Mild mitral valve regurgitation. Aortic Valve: Normal appearance of the aortic valve. Trace aortic valve regurgitation. Tricuspid Valve: Normal appearance of the tricuspid valve. Estimated peak RVSP is 36 mmHg. Moderate tricuspid regurgitation. Pulmonic Valve: Normal appearance of the pulmonic valve. Mild pulmonic regurgitation. Pericardium: Normal pericardium with no significant pericardial effusion. Aorta: Normal aortic root. IVC: Dilated IVC without respiratory collapse consistent with elevated right atrial pressure (>15 mmHg). Pulmonary Artery: Normal pulmonary artery size. CONCLUSIONS: Mild enlargement of left ventricle cavity. Normal global left ventricular systolic function. Paradoxical septal motion consistent with post pericardectomy status. Impaired diastolic relaxation Grade I. Ejection fraction is measured at 52 %. Ejection Fraction is visually estimated to be 60 %. Global Longitudinal Strain is -16 %. There is moderate enlargement of left atrium. Annular region thickened with prior annuloplasty. Mild mitral valve regurgitation. Normal appearance of the aortic valve. Trace aortic valve regurgitation. Electronically Signed By: Ricardo Hawthorne MD, [facility] 11/20/2024 3:31:17 PM CDT Procedure Note Ricardo Hawthorne MD - 11/20/2024 [facility] [address] [facility] [address], [place] [address] [address] [facility] [address] [place] [address] P:[phone] P:[phone] Echocardiographic Report Patient Name: MICHELLE HENRY AN : 1945 Study Date: 11/20/2024 12:56:39 PM Gender: F Tech: Location: [facility] Provider: TRINA RODRIGUEZ Height(Cm): 155 BSA: 1.65 Weight(Kg): 63.5 Heart Rate: 53 BP: 134 / 64 Quality: Good Order Provider: TRINA RODRIGUEZ PROCEDURES: Echocardiographic Report: Transthoracic echocardiogram with complete 2D, M-Mode, and color Dopplerexamination. With Strain Analysis. INDICATIONS: S/P CABG and S/P Mitral Valve Repair- 08/2024 and R06.02 Shortness ofbreath. MEASUREMENTS: 2D/MM Value Range Doppler ValueRange EF Mod BP 52 % [ 54 - 74 ] SANAZ Vmax 1.94cm2 [ 2.00 - 4.00 ] Estimated EF 60 % AV Mean PG 6mmHg LVIDd 2D 4.64 cm [ 3.80 - 5.20 ] AV Peak Salvatore 1.67m/s [ 1.00 - 1.70 ] LVIDd MM 5.61 cm [ 3.80 - 5.20 ] AV Peak PG 11mmHg LVIDs 2D 3.83 cm [ 2.20 - 3.50 ] AV VTI 34.29cm LVIDs MM 4.44 cm [ 2.20 - 3.50 ] LVOT Diam 2.03 cm[ 1.70 - 2.10 ] LVPWd 2D 0.75 cm [ 0.60 - 0.90 ] LVOT Peak Salvatore 0.99m/s [ 0.70 - 1.10 ] LVPWd MM 0.67 cm [ 0.60 - 0.90 ] LVOT VTI 18.89cm IVSd 2D 1.11 cm [ 0.60 - 0.90 ] MV E Peak Salvatore 1.16m/s [ 0.60 - 1.30 ] IVSd MM 0.64 cm [ 0.60 - 0.90 ] MV A Peak Salvatore 1.16m/s [ 1.00 - 1.20 ] LA Dimension MM 5.15 cm [ 2.70 - 3.80 ] MV Mean PG 2 mmHg[ 0 - 5 ] AoR Diam MM 3.74 cm [ 2.70 - 3.70 ] MV PHT 65 msec[ 20 - 100 ] LA Volume Index 64 cc/m2 [ 16 - 34 ] MVA PHT 3.40cm2 [ 2.00 - 4.00 ] ACS MM 1.65 cm MV Decel Time 266msec [ 104 - 258 ] PV Peak Salvatore 0.75 m/s [ 0.40 - 0.80 ] TR Peak Salvatore 2.30 m/s [ 1.00 - 2.80 ] TR Peak PG 21 mmHg RVSP 36.00 mmHg [ 10.00 - 36.00 ] Lateral E` 0.06 m/s [ 0.10 - 0.15 ] E` 0.04 m/s E/E` 20 2D/MM Value Range Doppler ValueRange - FINDINGS: Interpretation Site: Exam was interpreted at [facility]. Left Ventricle: Mild enlargement of left ventricle cavity. Normal global left ventricularsystolic function. Paradoxical septal motion consistent with post pericardectomystatus. Impaired diastolic relaxation Grade I. Ejection fraction is measured at 52 %.Ejection Fraction is visually estimated to be 60 %. Global Longitudinal Strain is -16 %. Right Ventricle: Normal right ventricular size. Left Atrium: There is moderate enlargement of left atrium. Right Atrium: The right atrium is normal in size. Atrial Septum: Normal atrial septum. Mitral Valve: Annular region thickened with prior annuloplasty. Mild mitral valveregurgitation. Aortic Valve: Normal appearance of the aortic valve. Trace aortic valve regurgitation. Tricuspid Valve: Normal appearance of the tricuspid valve. Estimated peak RVSP is 36 mmHg.Moderate tricuspid regurgitation. Pulmonic Valve: Normal appearance of the pulmonic valve. Mild pulmonic regurgitation. Pericardium: Normal pericardium with no significant pericardial effusion. Aorta: Normal aortic root. IVC: Dilated IVC without respiratory collapse consistent with elevated rightatrial pressure (>15 mmHg). Pulmonary Artery: Normal pulmonary artery size. CONCLUSIONS: Mild enlargement of left ventricle cavity. Normal global left ventricularsystolic function. Paradoxical septal motion consistent with post pericardectomystatus. Impaired diastolic relaxation Grade I. Ejection fraction is measured at 52 %.Ejection Fraction is visually estimated to be 60 %. Global Longitudinal Strain is -16 %. There is moderate enlargement of left atrium. Annular region thickened with prior annuloplasty. Mild mitral valveregurgitation. Normal appearance of the aortic valve. Trace aortic valve regurgitation. Electronically Signed By: Ricardo Hawthorne MD, FACC 11/20/2024 3:31:17 PM CDT Trina Rodriguez NP CV ECHO PROCEDURES Final Result * (ABNORMAL) CBC with auto differential (11/19/2024 11:10 AM CDT) WBC 10.4 3.8 - 10.8 Thousand/u L [facility] RBC, POC 4.27 3.80 - 5.10 Million/uL [facility] Hgb 10.6(L) 11.7 - 15.5 g/dL [facility] Hct 35.9 35.0 - 45.0 % [facility] MCV 84.1 80.0 - 100.0 fL [facility] MCH 24.8(L) 27.0 - 33.0 pg [facility] MCHC 29.5(L) 32.0 - 36.0 g/dL [facility] Comment: For adults, a slight decrease in the calculated MCHC value (in the range of 30 to 32 g/dL) is most likely not clinically significant; however, it should be interpreted with caution in correlation with other red cell parameters and the patient's clinical condition. Rdw 14.5 11.0 - 15.0 % [facility] Platelets 357 140 - 400 Thousand/u L [facility] MPV 11.9 7.5 - 12.5 fL [facility] Neutrophils, abs 6,458 1,500 - 7,800 cells/uL [facility] Lymphocytes, abs 2,361 850 - 3,900 cells/uL [facility] Monocyte abs 1,196(H) 200 - 950 cells/uL [facility] Eosinophils, abs 250 15 - 500 cells/uL [facility] Basophils, abs 135 0 - 200 cells/uL [facility] Neutrophils 62.1 % [facility] Lymphocyte pct 22.7 % [facility] Monocytes 11.5 % [facility] Eosinophils 2.4 % [facility] Basophils 1.3 % [facility] Blood 11/19/2024 11:1 0 AM CDT 11/19/2024 11:10 AM CDT Narrative [facility] - 11/20/2024 5:43 AM CDT FASTING:YES FASTING: YES us Trina Rodriguez NP LAB BLOOD ORDERABLES Randa arnold Result [facility] [id number] [address] [place] [id number] * Creatine kinase (CK), total (11/19/2024 11:10 AM CDT) CK 47 18 - 225 U/L [facility] Blood 11/19/2024 11:1 0 AM CDT 11/19/2024 11:10 AM CDT Narrative [facility] - 11/20/2024 5:43 AM CDT FASTING:YES FASTING: YES Trina Rodriguez PROCESS MECHANIC LAB BLOOD ORDERABLES Randa l Result [facility] [id number] [address], [place] [phone] * (ABNORMAL) Comprehensive metabolic panel (11/19/2024 11:10 AM CDT) Pathologist [facility] Glucose 98 65 - 99 mg/dL [facility] Comment: Fasting reference interval BUN 19 7 - 25 mg/dL [facility] Creatinine 0.53(L) 0.60 - 1.00 mg/dL [facility] eGFR 95 > OR = 60 mL/min/1.7 3m2 [facility] BUN/creat ratio 36(H) 6 - 22 (calc) [facility] Sodium 137 135 - 146 mmol/L [facility] Potassium, pl 4.3 3.5 - 5.3 mmol/L [facility] Chloride 106 98 - 110 mmol/L [facility] CO2 22 20 - 32 mmol/L [facility] Calcium 8.7 8.6 - 10.4 mg/dL [facility] Protein, sr 6.4 6.1 - 8.1 g/dL [facility] Albumin 3.8 3.6 - 5.1 g/dL [facility] GLOBULIN 2.6 1.9 - 3.7 g/dL (calc) [facility] Alb/glob ratio 1.5 1.0 - 2.5 (calc) [facility] Bilirubin, total 0.6 0.2 - 1.2 mg/dL [facility] Alk phos 157(H) 37 - 153 U/L [facility] AST 28 10 - 35 U/L [facility] ALT (SGPT) 32(H) 6 - 29 U/L [facility] Blood 11/19/2024 11:1 0 AM CDT 11/19/2024 11:10 AM CDT Narrative [facility] - 11/20/2024 5:43 AM CDT FASTING:YES FASTING: YES Trina Rodriguez PROCESS MECHANIC LAB BLOOD ORDERABLES Randa l Result [facility] [id number] [address] [place] [phone] * X-ray chest 2 views (09/27/2024 11:22 AM CIVIL TECHNICIAN) Anatomical Region Laterality Modality Body, Chest N/A Computed Radiogr aphy 09/27/2024 11:2 5 AM CIVIL TECHNICIAN Impressions 09/27/2024 11:25 AM CIVIL TECHNICIAN RESOLUTION OF FLUID LEFT BASE. ATELECTASIS LEFT BASE Electronically signed by: Yimi Bond M.D. Narrative 09/27/2024 11:25 AM CIVIL TECHNICIAN EXAMINATION: XR CHEST PA LATERAL 2 VIEWS [...] by: Yimi Bond M.D. us Truong Yañez PROCESS MECHANIC IMG XR PROCEDURES Final Res ult * Hemoglobin A1c (07/31/2024 9:09 AM CIVIL TECHNICIAN) Hgb A1C 5.3 4.0 - 5.6 % Estimated Average Glucose 105 mg/dL [facility] Comment: The ADA recommends reporting an estimated Average Glucose (eAG) with all Hemoglobin A1c results using the equation derived from a study of 507 normal and diabetic adults. Minority populations were underrepresented and children were not included. (Diabetes Care 31:9742-2941, 2008). The eAG is not equivalent to a fasting glucose. Blood 07/31/2024 9:09 AM CIVIL TECHNICIAN 07/31/2024 9:35 AM CIVIL TECHNICIAN Fidelia Samuels PROCESS MECHANIC LAB BLOOD ORDERABLES Final Res ult [facility] [id number] [address] Department [place] [address] * (ABNORMAL) Lipid panel (06/10/2024) Pathologist [facility] SCRIBED Cholesterol, Total 196 < - 200 EXTERNAL LAB SCRIBED HDL 56(A) > - 40 EXTERNAL LAB SCRIBED LDL 112(A) < - 100 EXTERNAL LAB SCRIBED Triglycerides 95 < - 150 EXTERNAL LAB Blood 06/10/2024 Historical Provider LAB BLOOD ORDERABLES Randa l Result EXTERNAL LAB from Last 3 Months or Most Recently Relevant to Health Maintenance Insurance [employer] MEDICARE [facility] MEDICARE Advance Directives For more information, please contact: [phone] Documents on File Type Date Recorded Patient Roofer Metal Expl anation ADVANCE DIRECTIVE 09/11/2024 1:01 PM POWER OF SHEET METAL SHOP HELPER-MEDICAL * Full Code (Latest Code Status on File) Date Activated Date Inactivated Comments 08/28/2024 3:22 PM 09/10/2024 5:56 PM Care Teams Marine Animal Trainer Relationship Specialty Start Date End Date Meme Richardson DO [place] [address] [facility] [address] [place] [address] PCP - General Family Medicine 09/10/24 Dusty Bernal MD [address] [facility] 8233[address]12-14 [place] [address] Surgeon Cardiothoracic Surgery 09/10/24 Brendan Pool MD [address] [address] Consulting Physician Cardiology 09/10/24 Miscellaneous, Not In File 09/10/24
--- OUTSIDE RECORDS SUMMARY | 2024-12-25 11:30 | XMS_ITS | Encounter Summary ---
Author Organization [facility] Healthcare Address [address] [place] [address] Care Team Providers Care Pilates Instructor Name Role Phone Meme Richardson Primary Care Provider +1- [phone] Ginioswaldo Mememo Mackenzie DO Primary Care Provider +[phone]- [phone] Dusty Bernal MD Unavailable [phone] Brendan Pool MD Unavailable Miscellaneous, Not In File Unavailable Unava ilable Encounter Details Date Type Department Care Team (Late st Contact Info) Description 06/13/2024 Orders Only [facility] Health Information Management [address] [place] [address] Tere Schmitt MD [address] [place] [address] Social History Tobacco Use Types Packs/Day [...] on filedocumented in this encounter Care Teams Pilates Instructor Relationship Specialty Start Date End Date Meme Richardson DO [address] [facility] [address] [place] [address] PCP - General Family Medicine 06/10/24 09/09/24 Meme Richardson DO [address] [facility] [address] [place] [address] PCP - General Family Medicine 09/10/24 Dusty Bernal MD [address] [facility] [address]14 [place] [address] Surgeon Cardiothoracic Surgery 09/10/24 Brendan Pool MD [address] [facility] [address] [place] [address] Consulting Physician Cardiology 09/10/24 Miscellaneous, Not In File 09/10/24 documented as of this encounter
--- OUTSIDE RECORDS SUMMARY | 2024-12-25 11:30 | XMS_ITS | Referral Summary ---
Author Organization [address] [place] [address] [address] [place] [address] Care Team Providers Care Food Product Inspector Name Role Phone Meme Richardson DO Primary Care Provider [phone]- [phone] Dusty Bernal MD Unavailable [phone] Brendan Pool MD Unavailable Miscellaneous, Not In File Unavailable Unava ilable Encounters Date Type Department Care Team Description 12/25/2024 Telephone [facility] Cardiology [address] [place] [address] [address] [place] [address] Brendan Pool MD 11/20/2024 Telephone [facility] Cardiology [address] [place] [address] [address] [place] [phone] Trina Rodriguez NP 11/20/2024 Results Follow-Up [facility] Cardiology [address] [place] [address] [address] [place] [address] Trina Rodriguez NP 11/20/2024 1:00 PM CDT Ancillary Procedure [facility] Cardiology [address] [place] [address] [place] [address] Shortness of breath 11/19/2024 Telephone [facility] Cardiology [address] [place] [address] [address] [place] [phone] Brendan Pool MD 11/19/2024 9:00 AM CDT Office Visit [facility] Cardiology [address] [place] [address] [place] [address] Trina Rodriguez NP Shortness of breath (Primary Dx); Fatigue, unspecified type; 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; S/P CABG x 4; Status post mitral valve annuloplasty; Statin myopathy; Paroxysmal atrial fibrillation (HCC); Chronic anticoagulation 10/23/2024 11:00 AM CDT Home Care Visit [address] [place] [address] [address] [place] [address] Swathi Pepper, NICKI SN OASIS DISCHARGE 10/15/2024 1:00 PM KNITTER OPERATOR Home Care Visit [address] [place] [address] [address] [place] [address] Swathi Pepper RN SN HOME VISIT 10/12/2024 Telephone [facility] Cardiology [address] [place] [address] [place] [phone] Brendan Pool MD 10/11/2024 8:30 AM KNITTER OPERATOR Home Care Visit [address] [place] [address] [address] [place] [address] Angelica Hernandez, PT PT DISCIPLINE DISCHARGE 10/10/2024 1:00 PM KNITTER OPERATOR Office Visit [facility] Cardiology [address] [place] [address] [place] [phone] Brendan Pool MD 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 (Primary Dx); History of ST elevation myocardial infarction (STEMI); S/P CABG x 4; Status post mitral valve annuloplasty; Paroxysmal atrial fibrillation (HCC) 10/08/2024 8:30 AM KNITTER OPERATOR Home Care Visit [address] [address] [address] [place] [address] Angelica Hernandez, PT PT HOME VISIT 10/08/2024 10:00 AM KNITTER OPERATOR Home Care Visit [place] [address] [address] [place] [address] Swathi Pepper, NICKI SN HOME VISIT 10/04/2024 8:30 AM KNITTER OPERATOR Home Care Visit [address] [place] [address] Angelica Hernandez, PT PT HOME VISIT 10/03/2024 Home Care Visit [address] [place] [address] Adrienne Caldera RN SN TRIAGE ENCOUNTER 10/03/2024 Telephone [facility] Cardiology [facility] [address] [place] [phone] Brendan Pool MD 10/01/2024 8:30 AM KNITTER OPERATOR Home Care Visit [address] [place] [address] Angelica Hernandez, PT PT HOME VISIT 10/01/2024 2:00 PM KNITTER OPERATOR Home Care Visit [address] [place] [address] Daily Melendez RN SN HOME VISIT 09/28/2024 10:00 AM KNITTER OPERATOR Home Care Visit [address] [place] [address] Angelica Hernandez, PT PT HOME VISIT 09/27/2024 11:05 AM KNITTER OPERATOR - 09/27/2024 11:59 PM KNITTER OPERATOR Hospital Encounter [facility] Diagnostic Imaging [address] [place] [address] Pleural effusion on left Discharge Disposition: Discharge to home or self care 09/27/2024 12:45 PM KNITTER OPERATOR Office Visit [facility] Surgery [address] [facility] [address] [place] [address] Dusty Bernal MD Pleural effusion on left (Primary Dx) from Last 3 Months Allergies Active Allergy Reactions Criticality Noted Date Comments Niacin Headache Low 07/10/2024 Ffgsvff-Rjs-Vpr Reductase Inhibitors Other (See comments) Low 07/10/2024 Certain statins caused muscle weakness Medications cholecalciferol, vitamin D3, 1,000 unit tablet,chewableI ndications:suppl ement Take 1 tablet/chew tab by mouth master printer before breakfast Active atorvastatin (LIPITOR) 40 mg tabletIndication s:hyperlipidemia Take 1 tablet (40 mg total) by mouth daily 90 tablet 3 4 Active cetirizine 10 mg capsuleIndicatio ns:Allergic Rhinitis Take 1 tablet by mouth master printer before breakfast Active fluticasone propionate (FLONASE) 50 [...] artery disease of n ative artery of lone pine heart with stable angina pectoris 06/28/2024 Social [...] materials from doctor or pharmacy Never 10/23/2024 [facility] Utilities Answer Date Recorded In the past 12 months has [facility] [employer], [employer], or water [employer] threatened to shut off services in your [...] often do you attend chur ch or mandaen services? More than 4 times per year 08/30/2024 Do you belong to any clubs o r organizations such as confucianist groups, unions, fraternal or athletic groups, or [...] any time in the past 12 m [facility], were you homeless or living in a jail (including now)? No 08/30/2024 Personal Safety Answer [...] on file Medical Devices Implanted Type Area Bronze Chaser Device Identifier Shelf Expiration Date Model / Serial / Lot [employer] Chente-Mcca rthy-Orozco Imr Etlogix 28mm 3d Reduced Curvature [id number] - [id number] - [id number] Implanted:Qty: 1 on 08/28/2024 by Dusty Bernal MD at [facility] Other - see comments N/A: Heart [employer] 08/30/2028 [id number] / [id number] / [employer] Plate Bone Low Profile 6 Hole O Shape Sternum Ti 115.104.06 - [id number] Implanted:Qty: 1 on 08/28/2024 by Dusty Bernal MD at [facility] Plate N/A: Sternum [employer] 115.104. 06 / / [employer] Plate Bone Low Profile 6 Hole H Shape Sternum Ti 115.102.06 - [id number] Implanted:Qty: 1 on 08/28/2024 by Dusty Bernal MD at [facility] Plate N/A: Sternum [employer] 115.102. 06 / / [employer] Plate Bone Low Profile 4 Hole Box Sternum Ti 115.103.04 - [id number] Implanted:Qty: 1 on 08/28/2024 by Dusty Bernal MD at [facility] Plate N/A: Sternum [employer] 115.103. 04 / / [employer] Screw Bone Slf Drl Full Thread Locking 3.5x18mm Ti 100.035.18 - [id number] Implanted:Qty: 2 on 08/28/2024 by Dusty Bernal MD at [facility] Screw N/A: Sternum [employer] 100.035. 18 / / [employer] Screw Bone Slf Drl Full Thread Locking 3.5x16mm Ti 100.035.16 - [id number] Implanted:Qty: 14 on 08/28/2024 by Dusty Bernal MD at [facility] Screw N/A: Sternum [employer] 100.035. 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 XR CHEST PA LATERAL 2 VIEWS Schedule Routine, Read Routine (OP Routine) 09/27/2024 11:22 AM KNITTER OPERATOR Pleural effusion on left HEMOGLOBIN A1C Routine 07/31/2024 9:09 AM KNITTER OPERATOR Encounter for preadmission testing Other specified diabetes [...] Group Cardiology [address], [place] [address] [address] [facility] [address], [place] [address] P:[phone] P:[phone] Echocardiographic Report Patient Name: MICHELLE HENRY AN : 1945 Study Date: 11/20/2024 12:56:39 PM Gender: F Tech: Location: [place] Ref Provider: TRINA RODRIGUEZ Height(Cm): 155 BSA: 1.65 [...] FINDINGS: Interpretation Site: Exam was interpreted at [facility]. Left Ventricle: Mild enlargement of left ventricle [...] regurgitation. Electronically Signed By: Ricardo Hawthorne MD, [facility] 11/20/2024 3:31:17 PM CDT Procedure Note Ricardo Hawthorne MD - 11/20/2024 [facility] Cardiology [address] [facility] [address] [id number] [address] [facility] [address], [place], [place] [address] P:[phone] P:[phone] Echocardiographic Report Patient Name: MICHELLE HENRY AN : 1945 Study Date: 11/20/2024 12:56:39 PM Gender: F Tech: Location: [facility] Provider: TRINA RODRIGUEZ Height(Cm): 155 BSA: 1.65 [...] FINDINGS: Interpretation Site: Exam was interpreted at [facility]. Left Ventricle: Mild enlargement of left ventricle [...] Trina Rodriguez NP LAB BLOOD ORDERABLES Randa l Result [facility] [address] [address] [place] [phone] * Creatine kinase (CK), total (11/19/2024 11:10 AM CDT) CK 47 18 - 225 U/L [facility] Blood 11/19/2024 11:1 0 AM CDT 11/19/2024 11:10 AM CDT Narrative [facility] - 11/20/2024 5:43 AM CDT FASTING:YES FASTING: YES Trina Rodriguez POT ROOM SUPERVISOR LAB BLOOD ORDERABLES Randa arnold Result [facility] [address] [facility] [place] [phone] * (ABNORMAL) Comprehensive metabolic panel (11/19/2024 11:10 AM CDT) Glucose 98 65 - 99 mg/dL [facility] [...] AM CDT FASTING:YES FASTING: YES Trina Rodriguez NP LAB BLOOD ORDERABLES Randa l Result [facility] [address] [place] [address] * X-ray chest 2 views (09/27/2024 11:22 AM KNITTER OPERATOR) Anatomical Region Laterality Modality Body, Chest N/A Computed Radiogr aphy 09/27/2024 11:2 5 AM KNITTER OPERATOR Impressions 09/27/2024 11:25 AM KNITTER OPERATOR RESOLUTION OF FLUID LEFT BASE. ATELECTASIS LEFT BASE Electronically signed by: Yimi Bond M.D. Narrative 09/27/2024 11:25 AM KNITTER OPERATOR EXAMINATION: XR CHEST PA LATERAL 2 VIEWS [...] BASE Electronically signed by: Yimi Bond M.D. Truong Yañez POT ROOM SUPERVISOR IMG XR PROCEDURES Final Res ult * Hemoglobin A1c (07/31/2024 9:09 AM KNITTER OPERATOR) Hgb A1C 5.3 4.0 - 5.6 % Estimated Average Glucose 105 mg/dL [facility] Comment: The ADA recommends reporting an estimated Average Glucose (eAG) with all Hemoglobin A1c results using the equation derived from a study of 507 normal and diabetic adults. Minority populations were underrepresented and children were not included. (Diabetes Care 31:9317-2131, 2008). The eAG is not equivalent to a fasting glucose. Blood 07/31/2024 9:09 AM KNITTER OPERATOR 07/31/2024 9:35 AM KNITTER OPERATOR Fidelia Samuels NP LAB BLOOD ORDERABLES Final Res ult AZ[facility] [address] Department [place] [address] * (ABNORMAL) Lipid panel (06/10/2024) SCRIBED Cholesterol, Total 196 < - 200 EXTERNAL LAB SCRIBED HDL 56(A) > - 40 EXTERNAL LAB SCRIBED LDL 112(A) < - 100 EXTERNAL LAB SCRIBED Triglycerides 95 < - 150 EXTERNAL LAB Blood 06/10/2024 Historical Provider LAB BLOOD ORDERABLES Randa l Result EXTERNAL LAB from Last 3 Months or Most Recently Relevant to Health Maintenance Insurance [employer] MEDICARE T MEDICARE Advance Directives For more information, please contact: [phone] Documents on File Type Date Recorded Patient Slide Forming Machine Operator Expl anation ADVANCE DIRECTIVE 09/11/2024 1:01 PM POWER OF FEATURES EDITOR-MEDICAL * Full Code (Latest Code Status on File) Date Activated Date Inactivated Comments 08/28/2024 3:22 PM 09/10/2024 5:56 PM Care Teams Food Product Inspector Relationship Specialty Start Date End Date Meme Richardson DO [address] [facility] [address] [place] [address] PCP - General Family Medicine 09/10/24 Dusty Bernal MD [address] [facility] [address] [place] [address] Surgeon Cardiothoracic Surgery 09/10/24 Brendan Pool MD [address] [address] Consulting Physician Cardiology 09/10/24 Miscellaneous, Not In File 09/10/24
--- OUTSIDE RECORDS SUMMARY | 2024-12-25 11:30 | XMS_ITS | Encounter Summary ---
Author Organization [facility] Healthcare Address [address] [place] [address] Care Team Providers Care Moulder Operator Name Role Phone Meme Richardson DO Primary Care Provider [phone]- [phone] Dusty Bernal MD Unavailable [phone] Brendan Pool MD Unavailable Miscellaneous, Not In File Unavailable Unava ilable Encounter Details Date Type Department Care Team (Late st Contact Info) Description 12/25/2024 Telephone [facility] Medical Group Cardiology [address] [place] [address] Brendan Pool MD [address] [address] Social History Tobacco Use Types [...] materials from doctor or pharmacy Never 10/23/2024 [facility] Utilities Answer Date Recorded In the past 12 months has th e [employer], gas, oil, or water company threatened to [...] often do you attend chur ch or sabianist services? More than 4 times per year 08/30/2024 Do you belong to any clubs o r organizations such as sabianist groups, unions, fraternal or athletic groups, or [...] any time in the past 12 m ont, were you homeless or living in a assisted (including now)? No 08/30/2024 Personal Safety Answer [...] encounter Miscellaneous Notes * Telephone Encounter - Anya Matias RN - 12/25/2024 10:54 AM CDT Noted. * Telephone Encounter - Janet De La Paz - 12/25/2024 10:45 AM CDT Pt called to let us know that her PCP is having her get a chest x-ray which is scheduled for today abut they are also going to be ordering a CT. Thank you Contact: documented in this encounter Plan of Treatment Not on file documented as of this encounter Visit Diagnoses Not on filedocumented in this encounter Care Teams Moulder Operator Relationship Specialty Start Date End Date Meme Richardson DO [address] [facility] [address] [place] [address] PCP - General Family Medicine 09/10/24 Dusty Bernal MD [address] [facility] [address] [place] [address] Surgeon Cardiothoracic Surgery 09/10/24 Brendan Pool MD [address] [place] [phone] Consulting Physician Cardiology 09/10/24 Miscellaneous, Not In File 09/10/24 documented as of this encounter
--- OUTSIDE RECORDS SUMMARY | 2024-12-25 11:31 | XMS_ITS | Encounter Summary ---
Author Organization [facility] Healthcare Address [address] [place] [address] Care Team Providers Care Db2 Systems Programmer Name Role Phone Meme Richardson DO Primary Care Provider [phone] Dusty Bernal MD Unavailable [phone] Brendan Pool MD Unavailable Miscellaneous, Not In File Unavailable Unava ilable Encounter Details Date Type Department Care Team (Late st Contact Info) Description 11/20/2024 Results Follow-Up [facility] Medical Group Cardiology [address] [place] [address] Trina Newman, AYAAN [address] [place] [address] Social History Tobacco Use Types Packs/Day Years [...] Recorded In the past 12 months has [facility] [employer] gas, oil, or water company threatened to [...] often do you attend chur ch or scientologist services? More than 4 times per year 08/30/2024 Do you belong to any clubs o r organizations such as islam groups, unions, fraternal or athletic groups, or [...] were you homeless or living in a nursing home (including now)? No 08/30/2024 Personal Safety Answer [...] on filedocumented in this encounter Care Teams Db2 Systems Programmer Relationship Specialty Start Date End Date Meme Richardson DO [address] [facility] [address] [place] [address] PCP - General Family Medicine 09/10/24 Dusty eBrnal MD [address] [facility] [address] [place] [address] Surgeon Cardiothoracic Surgery 09/10/24 Brendan Pool MD [address] [address] Consulting Physician Cardiology 09/10/24 Miscellaneous, Not In File 09/10/24 documented as of this encounter
== END 2024-12-25 11:05 | disposition home or self-care (01) ==
LOC: ANHIMG 11:08
PROVIDERS: PCP Family Medicine; Visit Provider Family Medicine
DX: J90 Pleural effusion, not elsewhere classified (principal); J98.11 Atelectasis; J18.9 Pneumonia, unspecified organism
CPT/HCPCS: 71046

== ENCOUNTER 2024-12-29 11:10 | Outpatient (CLI) | payer MEDICARE, SELFPAY ==
--- NOTE | ~2024-12-29 | CT_ITS ---
CT Scan of the Chest without Contrast: Clinical Indication: Shortness of breath Technique: Contiguous sections were acquired throughout the chest without intravenous contrast. Dose reduction technique was used on this scan by utilizing automated exposure control and iterative recon struction technique. The dose-length product (DLP) was 139.86 mGy-cm. COMPARISON: 06/10/2024 Findings: There is no evidence of any significant mediastinal, hilar or axillary lymphadenopathy. There are ath erosclerotic calcifications of the aorta and coronary arteries. There is probable mild cardiomegaly. No pericardial effusion.. Small bilateral pleural effusions are present. There is extensive left lower lobe atelectatic change. Images through the upper abdomen reveal cholelithiasis. Impression: Small bilateral pleural effusions with extensive left lower lobe atelectatic change. Cholelithiasis. Reviewed, dictated and finalized at [facility]. Impression: Small bilateral pleural effusions with extensive left lower lobe atelectatic ch justice. Cholelithiasis.
--- OUTSIDE RECORDS SUMMARY | 2024-12-29 10:13 | XMS_ITS | Encounter Summary ---
Author Organization [facility] Healthcare Address [address] [place] [address] Care Team Providers Care Medical Radiation Tech Name Role Phone Meme Richardson DO Primary Care Provider [phone] Dusty Bernal MD Unavailable [phone] Brendan Pool MD Unavailable Miscellaneous, Not In File Unavailable Unava ilable Encounter Details Date Type Department Care Team (Late st Contact Info) Description 11/20/2024 Results Follow-Up [facility] Medical Group Cardiology [address] [place] [address] Trina Newman, AYAAN [address] [place] [address] Social History Tobacco Use Types [...] materials from doctor or pharmacy Never 10/23/2024 [facility] Utilities Answer Date Recorded In the past 12 months has [facility] [employer] gas, oil, or water company threatened to [...] often do you attend chur ch or yazdanism services? More than 4 times per year 08/30/2024 Do you belong to any clubs o r organizations such as yazdanism groups, unions, fraternal or athletic groups, or [...] were you homeless or living in a care home (including now)? No 08/30/2024 Personal Safety [...] on filedocumented in this encounter Care Teams Medical Radiation Tech Relationship Specialty Start Date End Date Meme Richardson DO [address] [facility] [address] [place] [address] PCP - General Family Medicine 09/10/24 Dusty Bernal MD [address] [facility] [address] [place] [address] Surgeon Cardiothoracic Surgery 09/10/24 Brendan Pool MD [address] [address] Consulting Physician Cardiology 09/10/24 Miscellaneous, Not In File 09/10/24 documented as of this encounter
--- OUTSIDE RECORDS SUMMARY | 2024-12-29 10:13 | XMS_ITS | Encounter Summary ---
Author Organization [facility] Healthcare Address [address] [place] [address] Care Team Providers Care Retail Special Event Associate Name Role Phone Meme Richardson Primary Care Provider [phone]- [phone] Ginioswaldo Mememo Mackenzie DO Primary Care Provider [phone]- [phone] Dusty Bernal MD Unavailable [phone] Brendan Pool MD Unavailable Miscellaneous, Not In File Unavailable Unava ilable Encounter Details Date Type Department Care Team (Late st Contact Info) Description 06/13/2024 Orders Only [facility] Health Information Management [address] [place] [address] Tere Schmitt MD [address] [place] [address] Social History Tobacco Use Types Packs/Day [...] on filedocumented in this encounter Care Teams Retail Special Event Associate Relationship Specialty Start Date End Date Meme Richardson DO [address] [facility] [address] [place] [address] PCP - General Family Medicine 06/10/24 09/09/24 Meme Richardson DO [address] [facility] [address] [place] [address] PCP - General Family Medicine 09/10/24 Dusty Bernal MD [address] [facility] [address] [place] [address] Surgeon Cardiothoracic Surgery 09/10/24 Brendan Pool MD [address] [facility] [address] [place] [address] Consulting Physician Cardiology 09/10/24 Miscellaneous, Not In File 09/10/24 documented as of this encounter
--- OUTSIDE RECORDS SUMMARY | 2024-12-29 10:13 | XMS_ITS | Clinical Summary ---
Author Organization [facility] [address] Address [address] [place] [address] Care Team Providers Care Manufacture Specialist Name Role Phone Meme Richardson DO Primary Care Provider [phone] Dusty Bernal MD Unavailable [phone] Brendan Pool MD Unavailable Miscellaneous, Not In File Unavailable Unava ilable Allergies Active Allergy Reactions Criticality Noted Date Comments Niacin Headache Low 07/10/2024 Wphnbsw-Ixn-Vwv Reductase Inhibitors Other (See comments) Low 07/10/2024 Certain statins caused muscle weakness Medications cholecalciferol , vitamin D3, 1,000 unit tablet,chewable Indications:sup plement Take 1 tablet/chew tab by mouth 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 Active atorvastatin (LIPITOR) 40 mg tabletIndicatio ns:hyperlipidem ia Take 1 tablet (40 mg total) by mouth daily 90 tablet 3 07/02/20 24 Active cetirizine 10 mg capsuleIndicati ons:Allergic Rhinitis Take 1 tablet by mouth 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 Active fluticasone propionate (FLONASE) 50 mcg/actuation nasal sprayIndication s:Allergic Rhinitis Administer 1 spray into each nostril daily Active acetaminophen 500 mg capsuleIndicati ons:Fever,Pain, mild to moderate pain Take 2 capsules (1,000 mg total) by mouth every 6 (six) hours as needed for fever or pain 09/10/19 25 Active famotidine (PEPCID) 20 mg tabletIndicatio ns:gastroesopha geal reflux disease TAKE 1 TABLET(20 MG) BY MOUTH DAILY 90 tablet 1 09/10/19 25 Active glycerin suppositoryIndi cations:constip ation Insert 1 suppository into the rectum daily as needed for constipation over the counter med Active simethicone (MYLICON) 125 mg chewable tabletIndicatio ns:Flatulence Take 1 tablet (125 mg total) by mouth every 6 (six) hours as needed for flatulence 09/27/19 25 Active clopidogreL (PLAVIX) 75 mg tabletIndicatio ns:Myocardial Reinfarction Prevention TAKE 1 TABLET(75 MG) BY MOUTH DAILY 30 tablet 2 10/02/19 25 Active psyllium (KONSYL) powderIndicatio ns:constipation Take 1 Application by mouth daily. Indications: constipation 10/01/19 25 Active senna-docusate (Senna-S) 8.6-50 mg Take 1 tablet by mouth daily 09/11/19 25 Active lidocaine (LIDODERM) 5 % Place 1 patch on the skin daily Remove & discard patch within 12 hours or as directed by MD. Active metoprolol tartrate (LOPRESSOR) 25 mg immediate release tabletIndicatio ns:hypertension Take 0.5 tablets (12.5 mg total) by mouth 2 (two) times a day 30 tablet 11 10/10/19 25 2025 Active losartan (COZAAR) 25 mg tablet Take 1 tablet (25 mg total) by mouth daily 10/01/19 25 Active sertraline (ZOLOFT) 50 mg tablet Take 1 tablet (50 mg total) by mouth daily 10/23/19 25 Active Eliquis 5 mg tabletIndicatio ns:VTE Prophylaxis TAKE 1 TABLET(5 MG) BY MOUTH TWICE DAILY 60 tablet 2 12/28/19 25 Active apixaban (Eliquis) 5 mg tabletIndicatio ns:VTE Prophylaxis TAKE 1 TABLET(5 MG) BY MOUTH TWICE DAILY 60 tablet 2 10/02/19 25 2024 Discontinued Active Problems Problem Noted Date Diagnosed Date Coronary artery disease (CAD) excluded Mitral valve insufficiency 08/06/2024 Coronary artery disease of n ative heart with stable angina pectoris 07/24/2024 Coronary artery disease of n ative artery of paiute-shoshone heart with stable angina pectoris 06/28/2024 Encounters Date Type Department Care Team Description 12/25/2024 Telephone [place] [address] [place] [address] [phone] Brendan Pool MD 11/20/2024 1:00 PM CDT Ancillary Procedure [place] [address] [place] [address] [phone] Shortness of breath 11/20/2024 Telephone [place] [address] [place] [phone] Trina Rodriguez NP 11/20/2024 Results Follow-Up [place] [address] [place] [phone] Trina Rodriguez NP 11/19/2024 9:00 AM CDT Office Visit [place] [address] [place] [phone] Trina Rodriguez NP Shortness of breath (Primary Dx); Fatigue, unspecified type; Coronary artery disease of pai[place]shoshone artery of pai[place]shoshone heart with stable angina pectoris; S/P CABG x 4; Status post mitral valve annuloplasty; Statin myopathy; Paroxysmal atrial fibrillation (HCC); Chronic anticoagulation 11/19/[address] [phone] Brendan Pool MD 10/23/2024 11:00 AM CDT Home Care Visit [place] [address] [address] [place] [address] Swathi Pepper, NICKI SN OASIS DISCHARGE 10/15/2024 1:00 PM PELLETISING EXTRUDER OPERATOR Home Care Visit [address] [place] [address] Swathi Pepper, NICKI SN HOME VISIT 10/12/2024 Telephone [place] [address] [place] [address] [phone] Brendan Pool MD 10/11/2024 8:30 AM PELLETISING EXTRUDER OPERATOR Home Care Visit [address] [place] [address] Angelica Hernandez, PT PT DISCIPLINE DISCHARGE 10/10/2024 1:00 PM PELLETISING EXTRUDER OPERATOR Office Visit [facility] Medical Group Cardiology [address] [place] [address] Brendan Pool MD Coronary artery disease of paiute-shoshone artery of paiute-shoshone heart with stable angina pectoris (Primary Dx); History of ST elevation myocardial infarction (STEMI); S/P CABG x 4; Status post mitral valve annuloplasty; Paroxysmal atrial fibrillation (HCC) 10/08/2024 10:00 AM PELLETISING EXTRUDER OPERATOR Home Care Visit [address] [place] [address] Swathi Pepper RN SN HOME VISIT 10/08/2024 8:30 AM PELLETISING EXTRUDER OPERATOR Home Care Visit [address] [place] [address] Angelica Hernandez, PT PT HOME VISIT 10/04/2024 8:30 AM PELLETISING EXTRUDER OPERATOR Home Care Visit [address] [place] [address] Angelica Hernandez, PT PT HOME VISIT 10/03/2024 Home Care Visit [address] [place] [address] Adrienne Caldera RN SN TRIAGE ENCOUNTER 10/03/2024 Telephone [facility] Medical [facility] Cardiology [address] [facility] [address] [place] [address] Brendan Pool MD 10/01/2024 2:00 PM PELLETISING EXTRUDER OPERATOR Home Care Visit [address] [place] [address] Daily Melendez RN SN HOME VISIT 10/01/2024 8:30 AM PELLETISING EXTRUDER OPERATOR Home Care Visit [address] [place] [address] Angelica Hernandez, PT PT HOME VISIT from Last 3 Months Surgical History Surgery [...] disturbance STEMI (ST elevation myocardi al infarction) ([facility]) 06/10/2024 CAD (coronary artery disease) 06/10/2024 [...] materials from doctor or pharmacy Never 10/23/2024 [facility] Utilities Answer Date Recorded In the past 12 months has th e [employer], gas, oil, or water [employer] threatened to shut off services in your [...] week 08/30/2024 How often do you attend [facility] or baptist services? More than 4 times per year 08/30/2024 Do you belong to any clubs o r organizations such as advent groups, unions, fraternal or athletic groups, or [...] any time in the past 12 m [facility], were you homeless or living in a fpc (including now)? No 08/30/2024 Personal Safety Answer [...] history exists Medical Devices Implanted Type Area Process Equipment Operator Device Identifier Shelf Expiration Date Model / Serial / Lot [employer] Cheikh Subramanian Imr Etlogix 28mm 3d Reduced Curvature [id number] - [id number] - [id number] Implanted:Qty: 1 on 08/28/2024 by Dusty Bernal MD at [facility] Other - see comments N/A: Heart [employer] 08/30/2028 [id number] / [id number] / [employer] Plate Bone Low Profile 6 Hole O Shape Sternum Ti 115.104.06 - [id number] Implanted:Qty: 1 on 08/28/2024 by Dusty Bernal MD at [facility] Plate N/A: Sternum [employer] 115.104. 06 / / [employer] Plate Bone Low Profile 6 Hole H Shape Sternum Ti 115.102.06 - [id number] Implanted:Qty: 1 on 08/28/2024 by Dusty Bernal MD at [facility] Plate N/A: Sternum [employer] 115.102. 06 / / [employer] Plate Bone Low Profile 4 Hole Box Sternum Ti 115.103.04 - [id number] Implanted:Qty: 1 on 08/28/2024 by Dusty Bernal MD at [facility] Plate N/A: Sternum [employer] 115.103. 04 / / [employer] Screw Bone Slf Drl Full Thread Locking 3.5x18mm Ti 100.035.18 - [id number] Implanted:Qty: 2 on 08/28/2024 by Dusty Bernal MD at [facility] Screw N/A: Sternum [employer] 100.035. 18 / / [employer] Screw Bone Slf Drl Full Thread Locking 3.5x16mm Ti 100.035.16 - [id number] Implanted:Qty: 14 on 08/28/2024 by Dusty Bernal MD at [facility] Screw N/A: Sternum [employer] 100.035. 16 / / Procedures Procedure Name Priority Date/Time Associated Diagnosis Comments TRANSTHORACIC ECHO (TTE) COMPLETE W DOPPLER/CF WO CONTRAST Routine 11/20/2024 1:23 PM CDT Shortness of breath CREATINE KINASE (CK), TOTAL Routine 11/19/2024 11:10 AM CDT Coronary artery disease of pai[place]shoshone artery of pai[place]shoshone heart with stable angina pectoris COMPREHENSIVE METABOLIC PANEL Routine 11/19/2024 11:10 AM CDT Coronary artery disease of pa[place]shoshone artery of pai[place]shoshone heart with stable angina pectoris CBC WITH AUTO DIFFERENTIAL Routine 11/19/2024 11:10 AM CDT Coronary artery disease of pa[place]shoshone artery of pai[place]shoshone heart with stable angina pectoris HEMOGLOBIN A1C Routine 07/31/2024 9:09 AM PELLETISING EXTRUDER OPERATOR Encounter for preadmission testing Other specified [...] PM CDT Narrative 11/20/2024 3:31 PM CDT [facility] Medical Group Cardiology [address] [facility] [address] [address] [address] [facility] [address], [place] [address] P:[phone] P:[phone] Echocardiographic Report Patient Name: MICHELLE HENRY AN : 1945 Study Date: 11/20/2024 12:56:39 PM Gender: F Tech: Location: [place] Ref Provider: TRIAN RODRIGUEZ Height(Cm): 155 BSA: 1.65 Weight(Kg): 63.5 [...] FINDINGS: Interpretation Site: Exam was interpreted at [facility]. Left Ventricle: Mild enlargement of left ventricle [...] regurgitation. Electronically Signed By: Ricardo Hawthorne MD, [facility] 11/20/2024 3:31:17 PM CDT Procedure Note Ricardo Hawthorne MD - 11/20/2024 [facility] Medical Group Cardiology [address], [place] [address] [address], [place] [address] P:[phone] P:[phone] Echocardiographic Report Patient Name: MICHELLE HENRY AN : 1945 Study Date: 11/20/2024 12:56:39 PM Gender: F Tech: Location: [facility] Provider: TRINA RODRIGUEZ Height(Cm): 155 [...] 0.60 - 0.90 ] MV E Peak [place] 1.16m/s [ 0.60 - 1.30 ] IVSd [...] FINDINGS: Interpretation Site: Exam was interpreted at [facility]. Left Ventricle: Mild enlargement of left ventricle [...] regurgitation. Electronically Signed By: Ricardo Hawthorne MD, [facility] 11/20/2024 3:31:17 PM CDT Trina Rodriguez NP [...] AM CDT FASTING:YES FASTING: YES Trina Rodriguez HUMAN RELATIONS PROFESSOR LAB BLOOD ORDERABLES Randa l Result Performing Organization Address City/[facility]/ZIP Co de Phone Number [facility] [address] [place] [address] * Creatine kinase (CK), total (11/19/2024 11:10 AM CDT) CK 47 18 - 225 U/L [facility] Blood 11/19/2024 11:1 0 AM CDT 11/19/2024 11:10 AM CDT Narrative [facility] - 11/20/2024 5:43 AM CDT FASTING:YES FASTING: YES Trina Rodriguez HUMAN RELATIONS PROFESSOR LAB BLOOD ORDERABLES Randa l Result [facility] [address] [place] [address] * (ABNORMAL) Comprehensive metabolic panel (11/19/2024 11:10 [...] BLOOD ORDERABLES Randa l Result [facility] [address] [place] [address] * Hemoglobin A1c (07/31/2024 9:09 AM PELLETISING EXTRUDER OPERATOR) Hgb A1C 5.3 4.0 - 5.6 % Estimated Average Glucose 105 mg/dL AZAM XIE Comment: The ADA recommends reporting an estimated Average Glucose (eAG) with all Hemoglobin A1c results using the equation derived from a study of 507 normal and diabetic adults. Minority populations were underrepresented and children were not included. (Diabetes Care 31:1136-2509, 2008). The eAG is not equivalent to a fasting glucose. Blood 07/31/2024 9:09 AM PELLETISING EXTRUDER OPERATOR 07/31/2024 9:35 AM PELLETISING EXTRUDER OPERATOR Fidelia Samuels HUMAN RELATIONS PROFESSOR LAB BLOOD ORDERABLES Final Res ult [id number]|2024-12-29 10:13:00|2024-12-29 10:13:00|XMS_ITS|BKG DAEMON|External Medical Summaries|[id number]|" Referral Summary Created on: December 29, 2024 Michelle Henry : 1945 Sex: Female Author Organization [facility] [address] [facility] [address] [place] [address] Care Team Providers Care Manufacture Specialist Name Role Phone GinirushMeme le Primary Care Provider [phone] Dusty Bernal MD Unavailable [phone] Brendan Pool MD Unavailable Miscellaneous, Not In File Unavailable Unava ilable Encounters Date Type Department Care Team Description 12/25/2024 Telephone [place] [address] [place] [phone] Brendan Pool MD 11/20/2024 Telephone [place] [address] [place] [phone] Trina Rodriguez NP 11/20/2024 Results Follow-Up [place] [address] [place] [phone] Trina Rodriguez NP 11/20/2024 1:00 PM CDT Ancillary Procedure [place] [address] [place] [phone] Shortness of breath 11/19/2024 Telephone [place] [address] [place] [phone] Brendan Pool MD 11/19/2024 9:00 AM CDT Office Visit [address] [phone] Trina Rodriguez, YAAAN Shortness of breath (Primary Dx); Fatigue, unspecified type; Coronary artery disease of pai[place]-shoshone artery of pa[place]shoshone heart with stable angina pectoris; S/P CABG x 4; Status post mitral valve annuloplasty; Statin myopathy; Paroxysmal atrial fibrillation (HCC); Chronic anticoagulation 10/23/2024 11:00 AM CDT Home Care Visit [place] [address] [address] [place] [address] Swathi Pepper, NICKI SN OASIS DISCHARGE 10/15/2024 1:00 PM PELLETISING EXTRUDER OPERATOR Home Care Visit [address] [place] [address] Swathi Pepper, NICKI SN HOME VISIT 10/12/2024 Telephone [place] [address] [place] [phone] Brendan Pool MD 10/11/2024 8:30 AM PELLETISING EXTRUDER OPERATOR Home Care Visit [address] [place] [address] Angelica Hernandez, PT PT DISCIPLINE DISCHARGE 10/10/2024 1:00 PM PELLETISING EXTRUDER OPERATOR Office Visit [facility] Cardiology [address] [place] [address] [address] [place] [address] Brendan Pool MD Coronary artery disease of pai[place]-shoshone artery of paiute-shoshone heart with stable angina pectoris (Primary Dx); History of ST elevation myocardial infarction (STEMI); S/P CABG x 4; Status post mitral valve annuloplasty; Paroxysmal atrial fibrillation (HCC) 10/08/2024 8:30 AM PELLETISING EXTRUDER OPERATOR Home Care Visit [place] [address] [address] [place] [address] Angelica Hernandez, PT PT HOME VISIT 10/08/2024 10:00 AM PELLETISING EXTRUDER OPERATOR Home Care Visit [address] [place] [address] Swathi Pepper RN SN HOME VISIT 10/04/2024 8:30 AM PELLETISING EXTRUDER OPERATOR Home Care Visit [place] [address] [place] [address] Angelica Hernandez, PT PT HOME VISIT 10/03/2024 Home Care Visit [place] [address] [place] [address] Adrienne Caldera RN SN TRIAGE ENCOUNTER 10/03/2024 Telephone [facility] Cardiology [address] [place] [address] [address] [place] [phone] Brendan Pool MD 10/01/2024 8:30 AM PELLETISING EXTRUDER OPERATOR Home Care Visit [address] [place] [address] Angelica Hernandez, PT PT HOME VISIT 10/01/2024 2:00 PM PELLETISING EXTRUDER OPERATOR Home Care Visit [address] [place] [address] Daiyl Melendez RN SN HOME VISIT from Last 3 Months Allergies Active Allergy Reactions Criticality Noted Date Comments Niacin Headache Low 07/10/2024 Jbiolqg-Prn-Nky Reductase Inhibitors Other (See comments) Low 07/10/2024 Certain statins caused muscle weakness Medications cholecalciferol , vitamin D3, 1,000 unit tablet,chewable Indications:sup plement Take 1 tablet/chew tab by mouth 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 Active atorvastatin (LIPITOR) 40 mg tabletIndicatio ns:hyperlipidem ia Take 1 tablet (40 mg total) by mouth daily 90 tablet 3 07/02/20 24 Active cetirizine 10 mg capsuleIndicati ons:Allergic Rhinitis Take 1 tablet by mouth 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 Active fluticasone propionate (FLONASE) 50 mcg/actuation nasal sprayIndication s:Allergic Rhinitis Administer 1 spray into each nostril daily Active acetaminophen 500 mg capsuleIndicati ons:Fever,Pain, mild to moderate pain Take 2 capsules (1,000 mg total) by mouth every 6 (six) hours as needed for fever or pain 09/10/19 25 Active famotidine (PEPCID) 20 mg tabletIndicatio ns:gastroesopha geal reflux disease TAKE 1 TABLET(20 MG) BY MOUTH DAILY 90 tablet 1 09/10/19 25 Active glycerin suppositoryIndi cations:constip ation Insert 1 suppository into the rectum daily as needed for constipation over the counter med Active simethicone (MYLICON) 125 mg chewable tabletIndicatio ns:Flatulence Take 1 tablet (125 mg total) by mouth every 6 (six) hours as needed for flatulence 09/27/19 25 Active clopidogreL (PLAVIX) 75 mg tabletIndicatio ns:Myocardial Reinfarction Prevention TAKE 1 TABLET(75 MG) BY MOUTH DAILY 30 tablet 2 10/02/19 25 Active psyllium (KONSYL) powderIndicatio ns:constipation Take 1 Application by mouth daily. Indications: constipation 10/01/19 25 Active senna-docusate (Senna-S) 8.6-50 mg Take 1 tablet by mouth daily 09/11/19 25 Active lidocaine (LIDODERM) 5 % Place 1 patch on the skin daily Remove & discard patch within 12 hours or as directed by MD. Active metoprolol tartrate (LOPRESSOR) 25 mg immediate release tabletIndicatio ns:hypertension Take 0.5 tablets (12.5 mg total) by mouth 2 (two) times a day 30 tablet 11 10/10/19 25 2025 Active losartan (COZAAR) 25 mg tablet Take 1 tablet (25 mg total) by mouth daily 10/01/19 25 Active sertraline (ZOLOFT) 50 mg tablet Take 1 tablet (50 mg total) by mouth daily 10/23/19 25 Active Eliquis 5 mg tabletIndicatio ns:VTE Prophylaxis TAKE 1 TABLET(5 MG) BY MOUTH TWICE DAILY 60 tablet 2 12/28/19 25 Active apixaban (Eliquis) 5 mg tabletIndicatio ns:VTE Prophylaxis TAKE 1 TABLET(5 MG) BY MOUTH TWICE DAILY 60 tablet 2 10/02/19 25 2024 Discontinued Active Problems Problem Noted Date Diagnosed Date Coronary artery disease (CAD) excluded Mitral valve insufficiency 08/06/2024 Coronary artery disease of n ative heart with stable angina pectoris 07/24/2024 Coronary artery disease of n ative artery of pai[place]-shoshone heart with stable angina pectoris 06/28/2024 Social [...] materials from doctor or pharmacy Never 10/23/2024 [facility] Utilities Answer Date Recorded In the past 12 months has e [employer], [employer], oil, or water company threatened to shut [...] often do you attend chur ch or baptist services? More than 4 times per year 08/30/2024 Do you belong to any clubs o r organizations such as advent groups, unions, fraternal or athletic groups, or [...] any time in the past 12 m [facility], were you homeless or living in a fpc (including now)? No 08/30/2024 Personal Safety Answer [...] on file Medical Devices Implanted Type Area Process Equipment Operator Device Identifier Shelf Expiration Date Model / Serial / Lot [employer] Chen[employer]-Vandanaa rthy[employer]roz[employer] Imr Etlogix 28mm 3d Reduced Curvature [id number] - [id number] - [id number] Implanted:Qty: 1 on 08/28/2024 by Dusty Bernal MD at [facility] Other - see comments N/A: Heart [employer] 08/30/2028 [id number] / [id number] / [employer] Plate Bone Low Profile 6 Hole O Shape Sternum Ti 115.104.06 - [id number] Implanted:Qty: 1 on 08/28/2024 by Dusty Bernal MD at [facility] Plate N/A: Sternum [employer] 115.104. 06 / / [employer] Plate Bone Low Profile 6 Hole H Shape Sternum Ti 115.102.06 - [id number] Implanted:Qty: 1 on 08/28/2024 by Dusty Bernal MD at [facility] Plate N/A: Sternum [employer] 115.102. 06 / / [employer] Plate Bone Low Profile 4 Hole Box Sternum Ti 115.103.04 - [id number] Implanted:Qty: 1 on 08/28/2024 by Dusty Bernal MD at [facility] Plate N/A: Sternum [employer] 115.103. 04 / / [employer] Screw Bone Slf Drl Full Thread Locking 3.5x18mm Ti 100.035.18 - [id number] Implanted:Qty: 2 on 08/28/2024 by Dusty Bernal MD at [facility] Screw N/A: Sternum [employer] 100.035. 18 / / [employer] Screw Bone Slf Drl Full Thread Locking 3.5x16mm Ti 100.035.16 - [id number] Implanted:Qty: 14 on 08/28/2024 by Dusty Bernal MD at [facility] Screw N/A: Sternum [employer] 100.035. 16 / / Procedures Procedure Name Priority Date/Time Associated Diagnosis Comments TRANSTHORACIC ECHO (TTE) COMPLETE W DOPPLER/CF WO CONTRAST Routine 11/20/2024 1:23 PM CDT Shortness of breath CREATINE KINASE (CK), TOTAL Routine 11/19/2024 11:10 AM CDT Coronary artery disease of pai[place]-shoshone artery of pa[place]-shoshone heart with stable angina pectoris COMPREHENSIVE METABOLIC PANEL Routine 11/19/2024 11:10 AM CDT Coronary artery disease of pai[place]-shoshone artery of pai[place]-shoshone heart with stable angina pectoris CBC WITH AUTO DIFFERENTIAL Routine 11/19/2024 11:10 AM CDT Coronary artery disease of pai[place]-shoshone artery of pai[place]-shoshone heart with stable angina pectoris HEMOGLOBIN A1C Routine 07/31/2024 9:09 AM PELLETISING EXTRUDER OPERATOR Encounter for preadmission testing Other specified [...] PM CDT Narrative 11/20/2024 3:31 PM CDT [facility] Medical Group Cardiology [address] [facility] [address], [place] [address] [address] [facility] [address], [place] [address] P:[phone] P:[phone] Echocardiographic Report Patient Name: MICHELLE HENRY AN : 1945 Study Date: 11/20/2024 12:56:39 PM Gender: F Tech: Location: [place] Ref Provider: TRINA RODRIGUEZ Height(Cm): 155 BSA: [...] FINDINGS: Interpretation Site: Exam was interpreted at [facility]. Left Ventricle: Mild enlargement of left ventricle [...] regurgitation. Electronically Signed By: Ricardo Hawthorne MD, [facility] 11/20/2024 3:31:17 PM CDT Procedure Note Ricardo Hawthorne MD - 11/20/2024 [facility] Medical Group Cardiology [address] [facility] [address] [address] [address] [facility] [address], [place] [address] P:[phone] P:[phone] Echocardiographic Report Patient Name: MICHELLE HENRY AN : 1945 Study Date: 11/20/2024 12:56:39 PM Gender: F Tech: Location: [place] Ref Provider: TRINA RODRIGUEZ Height(Cm): 155 BSA: [...] FINDINGS: Interpretation Site: Exam was interpreted at [facility]. Left Ventricle: Mild enlargement of left ventricle [...] regurgitation. Electronically Signed By: Ricardo Hawthorne MD, [facility] 11/20/2024 3:31:17 PM CDT Trina Rodriguez NP [...] AM CDT FASTING:YES FASTING: YES Trina Rodriguez HUMAN RELATIONS PROFESSOR LAB BLOOD ORDERABLES Randa l Result Performing Organization Address [facility] de Phone Number [facility] [address] [place] [address] * Creatine kinase (CK), total (11/19/2024 11:10 AM CDT) Pathologist [facility], [place] CK 47 18 - 225 U/L [facility] Blood 11/19/2024 11:1 0 AM CDT 11/19/2024 11:10 AM CDT Narrative [facility] - 11/20/2024 5:43 AM CDT FASTING:YES FASTING: YES Trina Rodriguez HUMAN RELATIONS PROFESSOR LAB BLOOD ORDERABLES Randa l Result Performing Organization Address [facility] de Phone Number [facility] [address] [place] [address] * (ABNORMAL) Comprehensive metabolic panel (11/19/2024 11:10 AM CDT) [facility] Glucose 98 65 - 99 mg/dL [facility] [...] AM CDT FASTING:YES FASTING: YES Trina Rodriguez HUMAN RELATIONS PROFESSOR LAB BLOOD ORDERABLES Randa l Result [facility] [address] [place] [address] * Hemoglobin A1c (07/31/2024 9:09 AM PELLETISING EXTRUDER OPERATOR) Hgb A1C 5.3 4.0 - 5.6 % Estimated Average Glucose 105 mg/dL [facility] Comment: The ADA recommends reporting an estimated Average Glucose (eAG) with all Hemoglobin A1c results using the equation derived from a study of 507 normal and diabetic adults. Minority populations were underrepresented and children were not included. (Diabetes Care 31:6896-9125, 2008). The eAG is not equivalent to a fasting glucose. Blood 07/31/2024 9:09 AM PELLETISING EXTRUDER OPERATOR 07/31/2024 9:35 AM PELLETISING EXTRUDER OPERATOR Fidelia Samuels HUMAN RELATIONS PROFESSOR LAB BLOOD ORDERABLES Final Res ult [facility] [address] [place] [address] * (ABNORMAL) Lipid panel (06/10/2024) SCRIBED Cholesterol, Total 196 < - 200 EXTERNAL LAB SCRIBED HDL 56(A) > - 40 EXTERNAL LAB SCRIBED LDL 112(A) < - 100 EXTERNAL LAB SCRIBED Triglycerides 95 < - 150 EXTERNAL LAB Blood 06/10/2024 us Historical Provider LAB BLOOD ORDERABLES Randa arnold Result EXTERNAL LAB from Last 3 Months or Most Recently Relevant to Health Maintenance Insurance [employer] MEDICARE [employer] MEDICARE Advance Directives For more information, please contact: [phone] Documents on File Type Date Recorded Patient Development Planner Expl anation ADVANCE DIRECTIVE 09/11/2024 1:01 PM POWER OF SCREEN TENDER-MEDICAL * Full Code (Latest Code Status on File) Date Activated Date Inactivated Comments 08/28/2024 3:22 PM 09/10/2024 5:56 PM Care Teams Manufacture Specialist Relationship Specialty Start Date End Date Meem Richardson DO [address] [address] [facility] [address] [place] [address] PCP - General Family Medicine 09/10/24 Dusty Bernal MD [id number] [place] [address] Surgeon Cardiothoracic Surgery 09/10/24 Brendan Pool MD [address] [facility] [address] [place] [address] Consulting Physician Cardiology
--- OUTSIDE RECORDS SUMMARY | 2024-12-29 11:11 | XMS_ITS | Clinical Summary ---
Author Organization [facility] [address] Address [address] [place] [address] Care Team Providers Care Sampler First Name Role Phone Meme Richardson DO Primary Care Provider [phone] Dusty Bernal MD Unavailable [phone] Brendan Pool MD Unavailable Miscellaneous, Not In File Unavailable Unava ilable Allergies Active Allergy Reactions Criticality Noted Date Comments Niacin Headache Low 07/10/2024 Ssfpdpu-Bmt-Ivp Reductase Inhibitors Other (See comments) Low 07/10/2024 Certain statins caused muscle weakness Medications cholecalciferol , vitamin D3, 1,000 unit tablet,chewable Indications:sup plement Take 1 tablet/chew tab by mouth computer analyst before breakfast Active atorvastatin (LIPITOR) 40 mg tabletIndicatio ns:hyperlipidem ia Take 1 tablet (40 mg total) by mouth daily 90 tablet 3 07/02/20 24 Active cetirizine 10 mg capsuleIndicati ons:Allergic Rhinitis Take 1 tablet by mouth computer analyst before breakfast Active fluticasone propionate (FLONASE) 50 [...] artery disease of n ative artery of viejas heart with stable angina pectoris 06/28/2024 Encounters Date Type Department Care Team Description 12/25/2024 Telephone [place] [place] [phone] Brendan Pool MD 11/20/2024 1:00 PM CDT Ancillary Procedure [place] [place] [phone] Shortness of breath 11/20/2024 Telephone [place] [address] [place] [phone] Trina Rodriguez NP 11/20/2024 Results Follow-Up [address] [place] [phone] Trina Rodriguez NP 11/19/2024 9:00 AM CDT Office Visit [place] [place] [phone] Trina Rodriguez NP Shortness of breath (Primary Dx); Fatigue, unspecified type; 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; S/P CABG x 4; Status post mitral valve annuloplasty; Statin myopathy; Paroxysmal atrial fibrillation (HCC); Chronic anticoagulation 11/19/[address] [phone] Brendan Pool MD 10/23/2024 11:00 AM CDT Home Care Visit [place] [address] [address] [place] [address] Swathi Pepper, NICKI SN OASIS DISCHARGE 10/15/2024 1:00 PM MAJOR LEAGUE BASEBALL UMPIRE Home Care Visit [address] [place] [address] Swathi Pepper, NICKI SN HOME VISIT 10/12/2024 Telephone [place] [place] [phone] Brendan Pool MD 10/11/2024 8:30 AM [employer] LEAG[employer] UMPIRE Home Care Visit [address] [place] [address] Angelica Hernandez, PT PT DISCIPLINE DISCHARGE 10/10/2024 1:00 PM MAJ[employer] LE[employer] UMPIRE Office Visit [facility] Cardiology [address] [place] [address] Brendan Pool MD 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 (Primary Dx); History of ST elevation myocardial infarction (STEMI); S/P CABG x 4; Status post mitral valve annuloplasty; Paroxysmal atrial fibrillation (HCC) 10/08/2024 10:00 AM MAJOR LEAG[employer] BASEBALL UMPIRE Home Care Visit [address] [place] [address] Swathi Pepper RN SN HOME VISIT 10/08/2024 8:30 AM MAJ[employer] LE[employer] UMPIRE Home Care Visit [address] [place] [address] Angelica Hernandez, PT PT HOME VISIT 10/04/2024 8:30 AM MAJ[employer] LE[employer] UMPIRE Home Care Visit [address] [place] [address] Angelica Hernandez, PT PT HOME VISIT 10/03/2024 Home Care Visit [address] [place] [address] Adrienne Caldera RN SN TRIAGE ENCOUNTER 10/03/2024 Telephone [facility] Medical [facility] Cardiology [address] [facility] [address] [place] [address] Brendan Pool MD 10/01/2024 2:00 PM MA[employer] LE[employer] UMPIRE Home Care Visit [address] [place] [address] Daily Melendez RN SN HOME VISIT 10/01/2024 8:30 AM MAJOR LEAG[employer] UMPIRE Home Care Visit [address] [place] [address] Angelica Hernandez, PT PT HOME VISIT from [...] disturbance STEMI (ST elevation myocardi al infarction) ([facility]) 06/10/2024 CAD (coronary artery disease) [...] materials from doctor or pharmacy Never 10/23/2024 [facility] Utilities Answer Date Recorded In the past 12 months has th e [employer], gas, oil, or water [employer] threatened to shut off services in your [...] week 08/30/2024 How often do you attend [facility] or caodaism services? More than 4 times per year 08/30/2024 Do you belong to any clubs o r organizations such as restorationist groups, unions, fraternal or athletic groups, or [...] any time in the past 12 m [facility], were you homeless or living in a fdc (including now)? No 08/30/2024 Personal Safety Answer [...] history exists Medical Devices Implanted Type Area Combination Window Installer Device Identifier Shelf Expiration Date Model / Serial / Lot [employer] Cheikh Subramanian Imr Etlogix 28mm 3d Reduced Curvature [id number] - [id number] - [id number] Implanted:Qty: 1 on 08/28/2024 by Dusty Bernal MD at [facility] Other - see comments N/A: Heart [employer] 08/30/2028 [id number] / [id number] / [employer] Plate Bone Low Profile 6 Hole O Shape Sternum Ti 115.104.06 - [id number] Implanted:Qty: 1 on 08/28/2024 by Dusty Bernal MD at [facility] Plate N/A: Sternum [employer] 115.104. 06 / / [employer] Plate Bone Low Profile 6 Hole H Shape Sternum Ti 115.102.06 - [id number] Implanted:Qty: 1 on 08/28/2024 by Dusty Bernal MD at [facility] Plate N/A: Sternum [employer] 115.102. 06 / / [employer] Plate Bone Low Profile 4 Hole Box Sternum Ti 115.103.04 - [id number] Implanted:Qty: 1 on 08/28/2024 by Dusty Bernal MD at [facility] Plate N/A: Sternum [employer] 115.103. 04 / / [employer] Screw Bone Slf Drl Full Thread Locking 3.5x18mm Ti 100.035.18 - [id number] Implanted:Qty: 2 on 08/28/2024 by Dusty Bernal MD at [facility] Screw N/A: Sternum [employer] 100.035. 18 / / [employer] Screw Bone Slf Drl Full Thread Locking 3.5x16mm Ti 100.035.16 - [id number] Implanted:Qty: 14 on 08/28/2024 by Dusty Bernal MD at [facility] Screw N/A: Sternum [employer] 100.035. 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 HEMOGLOBIN A1C Routine 07/31/2024 9:09 AM [employer] UMPIRE Encounter for preadmission testing 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) LIPID PANEL Routine 06/10/2024 from Last 3 Months or Most Recently Relevant to Health Maintenance Results * TRANSTHORACIC ECHO (TTE) COMPLETE W DOPPLER/CF WO CONTRAST (11/20/2024 1:23 PM CDT) LV EF 60 % CONS SCIMAGE Anatomical Region Laterality Modality Ultrasound 11/20/2024 12:5 6 PM CDT Narrative 11/20/2024 3:31 PM CDT [facility] Cardiology [address] [facility] [address], [place] [address] [address] [facility] [address], [place] [address] P:[phone] P:[phone] Echocardiographic Report Patient Name: MICHELLE HENRY AN : 1945 Study Date: 11/20/2024 12:56:39 PM Gender: F Tech: Location: [place] Ref Provider: TRINA RODRIGUEZ Height(Cm): 155 BSA: [...] FINDINGS: Interpretation Site: Exam was interpreted at [facility]. Left Ventricle: Mild enlargement of left [...] regurgitation. Electronically Signed By: Ricardo Hawthorne MD, [facility] 11/20/2024 3:31:17 PM CDT Procedure Note Ricardo Hawthorne MD - 11/20/2024 [facility] Cardiology [address], [place] [address] [address], [place] [address] P:[phone] P:[phone] Echocardiographic Report Patient Name: MICHELLE HENRY AN : 1945 Study Date: 11/20/2024 12:56:39 PM Gender: F Tech: Location: [facility] Provider: TRINA RODRIGUEZ Height(Cm): 155 [...] FINDINGS: Interpretation Site: Exam was interpreted at [facility]. Left Ventricle: Mild enlargement of left [...] regurgitation. Electronically Signed By: Ricardo Hawthorne MD, [facility] 11/20/2024 3:31:17 PM CDT Trina Rodriguez NP [...] AM CDT FASTING:YES FASTING: YES Trina Rodriguez BIOGEOGRAPHER LAB BLOOD ORDERABLES Randa l Result Performing Organization Address City/[facility]/ZIP Co de Phone Number [facility] [address] [place] [address] * Creatine kinase (CK), total (11/19/2024 11:10 AM CDT) CK 47 18 - 225 U/L [facility] Blood 11/19/2024 11:1 0 AM CDT 11/19/2024 11:10 AM CDT Narrative [facility] - 11/20/2024 5:43 AM CDT FASTING:YES FASTING: YES Trina Rodriguez BIOGEOGRAPHER LAB BLOOD ORDERABLES Randa l Result [facility] [address] [place] [address] * (ABNORMAL) Comprehensive metabolic panel (11/19/2024 11:10 [...] BLOOD ORDERABLES Randa l Result [facility] [address] [place] [address] * Hemoglobin A1c (07/31/2024 9:09 AM MAJOR LEAGUE BASEBALL UMPIRE) Hgb A1C 5.3 4.0 - 5.6 % Estimated Average Glucose 105 mg/dL AZAM XIE Comment: The ADA recommends reporting an estimated Average Glucose (eAG) with all Hemoglobin A1c results using the equation derived from a study of 507 normal and diabetic adults. Minority populations were underrepresented and children were not included. (Diabetes Care 31:5396-3923, 2008). The eAG is not equivalent to a fasting glucose. Blood 07/31/2024 9:09 AM MAJOR LEAGUE BASEBALL UMPIRE 07/31/2024 9:35 AM MAJOR LEAGUE BASEBALL UMPIRE Fidelia Samuels BIOGEOGRAPHER LAB BLOOD ORDERABLES Final Res ult [id number]|2024-12-29 11:12:00|2024-12-29 11:11:00|XMS_ITS|BKG DAEMON|External Medical Summaries|[id number]|" Referral Summary Created on: December 29, 2024 Michelle Henry : 1945 Sex: Female Author Organization [facility] [address] [facility] [address] Address [address] [place] [address] Care Team Providers Care Sampler First Name Role Phone GinirushMeme le Primary Care Provider [phone] Dusty Bernal MD Unavailable [phone] Brendan Pool MD Unavailable Miscellaneous, Not In File Unavailable Unava ilable Encounters Date Type Department Care Team Description 12/25/2024 Telephone [place] [place] [phone] Brendan Pool MD 11/20/2024 Telephone [place] [place] [phone] Trina Rodriguez NP 11/20/2024 Results Follow-Up [place] [address] [place] [phone] Trina Rodriguez NP 11/20/2024 1:00 PM CDT Ancillary Procedure [place] [place] [phone] Shortness of breath 11/19/2024 Telephone [place] [place] [phone] Brendan Pool MD 11/19/2024 9:00 AM CDT Office Visit [address] [phone] Trina Rodriguez, AYAAN Shortness of breath (Primary Dx); Fatigue, unspecified type; 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; S/P CABG x 4; Status post mitral valve annuloplasty; Statin myopathy; Paroxysmal atrial fibrillation (HCC); Chronic anticoagulation 10/23/2024 11:00 AM CDT Home Care Visit [place] [address] [address] [place] [address] Swathi Pepper, NICKI SN OASIS DISCHARGE 10/15/2024 1:00 PM MAJ[employer] LE[employer] UMPIRE Home Care Visit [address] [place] [address] Swathi Pepper, NICKI SN HOME VISIT 10/12/2024 Telephone [place] [address] [place] [phone] Brendan Pool MD 10/11/2024 8:30 AM MAJOR LEAGUE BASEBALL UMPIRE Home Care Visit [address] [place] [address] Angelica Hernandez, PT PT DISCIPLINE DISCHARGE 10/10/2024 1:00 PM MAJOR LEAGUE BASEBALL UMPIRE Office Visit [facility] Cardiology [address] [place] [address] [address] [place] [address] Brendan Pool MD 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 (Primary Dx); History of ST elevation myocardial infarction (STEMI); S/P CABG x 4; Status post mitral valve annuloplasty; Paroxysmal atrial fibrillation (HCC) 10/08/2024 8:30 AM MAJOR LEAGUE BASEBALL UMPIRE Home Care Visit [place] [address] [address] [place] [address] Angelica Hernandez, PT PT HOME VISIT 10/08/2024 10:00 AM MAJOR LEAGUE BASEBALL UMPIRE Home Care Visit [address] [place] [address] Swathi Pepper RN SN HOME VISIT 10/04/2024 8:30 AM MAJOR LEAG[employer] BASEBALL UMPIRE Home Care Visit [place] [address] [place] [address] Angelica Hernandez, PT PT HOME VISIT 10/03/2024 Home Care Visit [place] [address] [place] [address] Adrienne Caldera RN SN TRIAGE ENCOUNTER 10/03/2024 Telephone [facility] Cardiology [address] [place] [address] [address] [place] [phone] Brendan Pool MD 10/01/2024 8:30 AM MAJOR LEAGUE BASEBALL UMPIRE Home Care Visit [address] [place] [address] Angelica Hernandez, PT PT HOME VISIT 10/01/2024 2:00 PM MAJOR LEAGUE BASEBALL UMPIRE Home Care Visit [address] [place] [address] Daily Melendez RN SN HOME VISIT from Last 3 Months Allergies Active Allergy Reactions Criticality Noted Date Comments Niacin Headache Low 07/10/2024 Vjpfppc-Ziw-Llx Reductase Inhibitors Other (See comments) Low 07/10/2024 Certain statins caused muscle weakness Medications cholecalciferol , vitamin D3, 1,000 unit tablet,chewable Indications:sup plement Take 1 tablet/chew tab by mouth computer analyst before breakfast Active atorvastatin (LIPITOR) 40 mg tabletIndicatio ns:hyperlipidem ia Take 1 tablet (40 mg total) by mouth daily 90 tablet 3 07/02/20 24 Active cetirizine 10 mg capsuleIndicati ons:Allergic Rhinitis Take 1 tablet by mouth computer analyst before breakfast Active fluticasone propionate (FLONASE) 50 [...] artery disease of n ative artery of viejas heart with stable angina pectoris 06/28/2024 Social [...] materials from doctor or pharmacy Never 10/23/2024 [facility] Utilities Answer Date Recorded In the past 12 months has e [employer], Conjunct, oil, or water company threatened to shut [...] often do you attend chur ch or caodaism services? More than 4 times per year 08/30/2024 Do you belong to any clubs o r organizations such as restorationist groups, unions, fraternal or athletic groups, or [...] any time in the past 12 m [facility], were you homeless or living in a fdc (including now)? No 08/30/2024 Personal Safety Answer [...] on file Medical Devices Implanted Type Area Combination Window Installer Device Identifier Shelf Expiration Date Model / Serial / Lot [employer] Chente-Vandanaa rthy-Orozco Imr Etlogix 28mm 3d Reduced Curvature [id number] - [id number] - [id number] Implanted:Qty: 1 on 08/28/2024 by Dusty Bernal MD at [facility] Other - see comments N/A: Heart [employer] 08/30/2028 [id number] / [id number] / [employer] Plate Bone Low Profile 6 Hole O Shape Sternum Ti 115.104.06 - [id number] Implanted:Qty: 1 on 08/28/2024 by Dusty Bernal MD at [facility] Plate N/A: Sternum [employer] 115.104. 06 / / [employer] Plate Bone Low Profile 6 Hole H Shape Sternum Ti 115.102.06 - [id number] Implanted:Qty: 1 on 08/28/2024 by Dusty Bernal MD at [facility] Plate N/A: Sternum [employer] 115.102. 06 / / [employer] Plate Bone Low Profile 4 Hole Box Sternum Ti 115.103.04 - [id number] Implanted:Qty: 1 on 08/28/2024 by Dusty Bernal MD at [facility] Plate N/A: Sternum [employer] 115.103. 04 / / [employer] Screw Bone Slf Drl Full Thread Locking 3.5x18mm Ti 100.035.18 - [id number] Implanted:Qty: 2 on 08/28/2024 by Dusty Bernal MD at [facility] Screw N/A: Sternum [employer] 100.035. 18 / / [employer] Screw Bone Slf Drl Full Thread Locking 3.5x16mm Ti 100.035.16 - [id number] Implanted:Qty: 14 on 08/28/2024 by Dusty Bernal MD at [facility] Screw N/A: Sternum [employer] 100.035. 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 HEMOGLOBIN A1C Routine 07/31/2024 9:09 AM MAJOR LEAGUE B[employer]BALL UMPIRE Encounter for preadmission testing 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) LIPID PANEL Routine 06/10/2024 from Last 3 Months or Most Recently Relevant to Health Maintenance Results * TRANSTHORACIC ECHO (TTE) COMPLETE W DOPPLER/CF WO CONTRAST (11/20/2024 1:23 PM CDT) LV EF 60 % CONS SCIMAGE Anatomical Region Laterality Modality Ultrasound 11/20/2024 12:5 6 PM CDT Narrative 11/20/2024 3:31 PM CDT [facility] Cardiology [address] [facility] [address], [place] [address] [address] [facility] [address], [place] [address] P:[phone] P:[phone] Echocardiographic Report Patient Name: MICHELLE HENRY AN : 1945 Study Date: 11/20/2024 12:56:39 PM Gender: F Tech: Location: [place] Ref Provider: TRINA RODRIGUEZ Height(Cm): 155 BSA: [...] FINDINGS: Interpretation Site: Exam was interpreted at [facility]. Left Ventricle: Mild enlargement of left [...] regurgitation. Electronically Signed By: Ricardo Hawthorne MD, [facility] 11/20/2024 3:31:17 PM CDT Procedure Note Ricardo Hawthonre MD - 11/20/2024 [facility] Cardiology [address] [facility] [address], [place] [address] [address] [facility] [address], [place] [address] P:[phone] P:[phone] Echocardiographic Report Patient Name: MICHELLE HENRY AN : 1945 Study Date: 11/20/2024 12:56:39 PM Gender: F Tech: Location: [place] Ref Provider: TRINA RODRIGUEZ Height(Cm): 155 BSA: [...] FINDINGS: Interpretation Site: Exam was interpreted at [facility]. Left Ventricle: Mild enlargement of left [...] regurgitation. Electronically Signed By: Ricardo Hawthorne MD, [facility] 11/20/2024 3:31:17 PM CDT Trina Rodriguez NP [...] AM CDT FASTING:YES FASTING: YES Trina Rodriguez BIOGEOGRAPHER LAB BLOOD ORDERABLES Randa l Result Performing Organization Address [facility] de Phone Number [facility] [address] [place] [address] * Creatine kinase (CK), total (11/19/2024 11:10 AM CDT) Pathologist [facility] CK 47 18 - 225 U/L [facility] Blood 11/19/2024 11:1 0 AM CDT 11/19/2024 11:10 AM CDT Narrative [facility] - 11/20/2024 5:43 AM CDT FASTING:YES FASTING: YES Trina Rodriguez BIOGEOGRAPHER LAB BLOOD ORDERABLES Randa l Result Performing Organization Address [facility] de Phone Number [facility] [address] [place] [address] * (ABNORMAL) Comprehensive metabolic panel (11/19/2024 11:10 AM CDT) [facility] Glucose 98 65 - 99 [...] AM CDT FASTING:YES FASTING: YES Trina Rodriguez BIOGEOGRAPHER LAB BLOOD ORDERABLES Randa l Result [facility] [address] [place] [address] * Hemoglobin A1c (07/31/2024 9:09 AM MAJOR LEAGUE BASEBALL UMPIRE) Hgb A1C 5.3 4.0 - 5.6 % Estimated Average Glucose 105 mg/dL AZAM XIE Comment: The ADA recommends reporting an estimated Average Glucose (eAG) with all Hemoglobin A1c results using the equation derived from a study of 507 normal and diabetic adults. Minority populations were underrepresented and children were not included. (Diabetes Care 31:9922-1831, 2008). The eAG is not equivalent to a fasting glucose. Blood 07/31/2024 9:09 AM MAJOR LEAGUE BASEBALL UMPIRE 07/31/2024 9:35 AM MAJOR LEAGUE BASEBALL UMPIRE Fidelia Samuels BIOGEOGRAPHER LAB BLOOD ORDERABLES Final Res ult AZAM XIE [address] Department [place] [address] * (ABNORMAL) Lipid panel (06/10/2024) SCRIBED Cholesterol, Total 196 < - 200 EXTERNAL LAB SCRIBED HDL 56(A) > - 40 EXTERNAL LAB SCRIBED LDL 112(A) < - 100 EXTERNAL LAB SCRIBED Triglycerides 95 < - 150 EXTERNAL LAB Blood 06/10/2024 us Historical Provider LAB BLOOD ORDERABLES Randa arnold Result EXTERNAL LAB from Last 3 Months or Most Recently Relevant to Health Maintenance Insurance [employer] MEDICARE [employer] MEDICARE Advance Directives For more information, please contact: [phone] Documents on File Type Date Recorded Patient Wing Coverer Expl anation ADVANCE DIRECTIVE 09/11/2024 1:01 PM POWER OF CURATOR OF COLLECTIONS-MEDICAL * Full Code (Latest Code Status on File) Date Activated Date Inactivated Comments 08/28/2024 3:22 PM 09/10/2024 5:56 PM Care Teams Sampler First Relationship Specialty Start Date End Date Meme Richardson DO [address] [place] [address] PCP - General Family Medicine 09/10/24 Dusty Bernal MD [id number] [place] [address] Surgeon Cardiothoracic Surgery 09/10/24 Brendan Pool MD [address] [facility] [address] [place] [address] Consulting Physician Cardiology
--- OUTSIDE RECORDS SUMMARY | 2024-12-29 11:12 | XMS_ITS | Encounter Summary ---
Author Organization [facility] Healthcare Address [address] [place] [address] Care Team Providers Care Trade Clerk Name Role Phone Meme Richardson Primary Care Provider [phone]- [phone] Ginioswaldo Mememo Mackenzie DO Primary Care Provider [phone]- [phone] Dusty Bernal MD Unavailable [phone] Brendan Pool MD Unavailable Miscellaneous, Not In File Unavailable Unava ilable Encounter Details Date Type Department Care Team (Late st Contact Info) Description 06/13/[address] [facility] Health Information Management [address] [place] [address] Tere Schmitt MD [address] [place] [address] Social History Tobacco Use Types Packs/Day [...] on filedocumented in this encounter Care Teams Trade Clerk Relationship Specialty Start Date End Date Meme Richardson DO [address] [facility] [address] [place] [address] PCP - General Family Medicine 06/10/24 09/09/24 Meme Richardson DO [address] [facility] [address] [place] [address] PCP - General Family Medicine 09/10/24 Dusty Bernal MD [address] [place] [address] Surgeon Cardiothoracic Surgery 09/10/24 Brendan Pool MD [address] [facility] [address] [place] [address] Consulting Physician Cardiology 09/10/24 Miscellaneous, Not In File 09/10/24 documented as of this encounter
--- OUTSIDE RECORDS SUMMARY | 2024-12-29 11:12 | XMS_ITS | Encounter Summary ---
Author Organization [facility] Healthcare Address [address] [place] [address] Care Team Providers Care Mosaic Worker Name Role Phone Meme Richardson DO Primary Care Provider [phone] Dusty Bernal MD Unavailable Brendan Pool MD Unavailable Miscellaneous, Not In File Unavailable Unava ilable Encounter Details Date Type Department Care Team (Late st Contact Info) Description 11/20/2024 Results Follow-Up [facility] Medical Group Cardiology [address] [place] [address] Trina Newman, AYAAN [address] [place] [address] Social History Tobacco Use Types [...] materials from doctor or pharmacy Never 10/23/2024 [facility] Utilities Answer Date Recorded In the past 12 months has [facility] [employer] gas, oil, or water company threatened to [...] often do you attend chur ch or roman catholic services? More than 4 times per year 08/30/2024 Do you belong to any clubs o r organizations such as catholic groups, unions, fraternal or athletic groups, or [...] were you homeless or living in a intermediate (including now)? No 08/30/2024 Personal Safety Answer [...] on filedocumented in this encounter Care Teams Mosaic Worker Relationship Specialty Start Date End Date Meme Richardson DO [address] [facility] [address] [place] [address] PCP - General Family Medicine 09/10/24 Dusty Bernal MD [address] [place] [address] Surgeon Cardiothoracic Surgery 09/10/24 Brendan Pool MD [address] [address] Consulting Physician Cardiology 09/10/24 Miscellaneous, Not In File 09/10/24 documented as of this encounter
== END 2024-12-29 11:11 | disposition home or self-care (01) ==
PROVIDERS: PCP Family Medicine; Visit Provider Family Medicine
DX: R06.02 Shortness of breath (principal); R05.9 Cough, unspecified; J18.9 Pneumonia, unspecified organism; J90 Pleural effusion, not elsewhere classified; K80.20 Calculus of gallbladder without cholecystitis without obstruction
CPT/HCPCS: 71250

== ENCOUNTER 2025-01-17 17:45 | Emergency (ER) | payer MEDICARE, SELFPAY ==
--- OUTSIDE RECORDS SUMMARY | 2025-01-17 17:47 | XMS_ITS | Clinical Summary ---
Author Organization [facility] [address] Address [address] [place] [address] Care Team Providers Care Sewing Department Supervisor Name Role Phone Meme Richardson DO Primary Care Provider [phone] Dusty Bernal MD Unavailable [phone] Brendan Pool MD Unavailable Miscellaneous, Not In File Unavailable Unava ilable Allergies Active Allergy Reactions Criticality Noted Date Comments Niacin Headache Low 07/10/2024 Jfrzqzf-Way-Fsu Reductase Inhibitors Other (See comments) Low 07/10/2024 Certain statins caused muscle weakness Medications cholecalciferol , vitamin D3, 1,000 unit tablet,chewable Indications:sup plement Take 1 tablet/chew tab by mouth early intervention specialist before breakfast Active atorvastatin (LIPITOR) 40 mg tabletIndicatio ns:hyperlipidem ia Take 1 tablet (40 mg total) by mouth daily 90 tablet 3 07/02/20 24 Active cetirizine 10 mg capsuleIndicati ons:Allergic Rhinitis Take 1 tablet by mouth early intervention specialist before breakfast Active fluticasone propionate (FLONASE) 50 [...] artery disease of n ative artery of la posta heart with stable angina pectoris 06/28/2024 Encounters Date Type Department Care Team Description 12/25/2024 Telephone [place] [address] [place] [address] Brendan Pool MD 11/20/2024 1:00 PM CDT Ancillary Procedure [address] [address] Shortness of breath 11/20/2024 Telephone [place] [address] [place] [address] Trina Rodriguez NP 11/20/2024 Results Follow-Up [address] [address] Trina Rodriguez NP CBC with auto differential, Comprehensive metabolic panel, Creatine kinase (CK), total 11/19/2024 9:00 AM CDT Office Visit [address] [address] Trina Rodriguez NP Shortness of breath (Primary Dx); Fatigue, unspecified type; 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; S/P CABG x 4; Status post mitral valve annuloplasty; Statin myopathy; Paroxysmal atrial fibrillation (HCC); Chronic anticoagulation 11/19/2024 Telephone [place] [address] [place] [address] Brendan Pool MD 10/23/2024 11:00 AM CDT Home Care Visit [facility] [address] [place] [address] Swathi Pepper RN SN OASIS DISCHARGE from Last 3 Months Surgical History Surgery [...] disturbance STEMI (ST elevation myocardi al infarction) ([facility]) 06/10/2024 CAD (coronary artery disease) 06/10/2024 Vertigo [...] materials from doctor or pharmacy Never 10/23/2024 [facility] Utilities Answer Date Recorded In the past 12 months has e electric, gas, oil, or water [email or web address] threatened to shut off services in your [...] often do you attend chur ch or episcopalian services? More than 4 times per year 08/30/2024 Do you belong to any clubs o r organizations such as lutheran groups, unions, fraternal or athletic groups, or [...] were you homeless or living in a halfway (including now)? No 08/30/2024 Personal Safety Answer [...] 9:10 AM CDT Height 154.9 cm (5' 1) 11/19/2024 9:10 AM CDT Body Mass Index [...] (1 - Tdap) 02/02/2019 9 Covid-19 Vaccine (2023-2 5 season) 2024 05/14/2024, 05/23/2023, 05/04/2022, Additional history exists Hemoglobin A1C 01/29/2025 07/31/2024 Lipid Panel 06/10/2025 06/10/2024 Fall Risk Assessment 09/10/2025 09/10/2024 eGFR 11/19/2025 11/19/2024, 02/0 08/2024, 09/10/2024, Additional history exists Zoster Vaccine Completed 11/03/2023, 08/15, 10/18/2016 Influenza Vaccine Completed 05/14/2024, , 05/24/2022, Additional history exists Medical Devices Implanted Type Area Automotive Sales Specialist Device Identifier Shelf Expiration Date Model / Serial / Lot [employer] Chente-Mcca rtcarolynn-Orozco Imr Etlogix 28mm 3d Reduced Curvature [id number] - [id number] - [id number] Implanted:Qty: 1 on 08/28/2024 by Dusty Bernal MD at [facility] Other - see comments N/A: Heart [employer] 08/30/2028 [id number] / [id number] / [employer] Plate Bone Low Profile 6 Hole O Shape Sternum Ti 115.104.06 - [id number] Implanted:Qty: 1 on 08/28/2024 by Dusty Bernal MD at [facility] Plate N/A: Sternum [employer] 115.104. 06 / / [employer] Plate Bone Low Profile 6 Hole H Shape Sternum Ti 115.102.06 - [id number] Implanted:Qty: 1 on 08/28/2024 by Dusty Bernal MD at [facility] Plate N/A: Sternum [employer] 115.102. 06 / / [employer] Plate Bone Low Profile 4 Hole Box Sternum Ti 115.103.04 - [id number] Implanted:Qty: 1 on 08/28/2024 by Dusty Bernal MD at [facility] Plate N/A: Sternum [employer] 115.103. 04 / / [employer] Screw Bone Slf Drl Full Thread Locking 3.5x18mm Ti 100.035.18 - [id number] Implanted:Qty: 2 on 08/28/2024 by Dusty Bernal MD at [facility] Screw N/A: Sternum [employer] 100.035. 18 / / [employer] Screw Bone Slf Drl Full Thread Locking 3.5x16mm Ti 100.035.16 - [id number] Implanted:Qty: 14 on 08/28/2024 by Dusty Bernal MD at [facility] Screw N/A: Sternum [employer] 100.035. 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 HEMOGLOBIN A1C Routine 07/31/2024 9:09 AM PLATFORM MAN Encounter for preadmission testing 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) LIPID PANEL Routine 06/10/2024 from Last 3 Months or Most Recently Relevant to Health Maintenance Results * TRANSTHORACIC ECHO (TTE) COMPLETE W DOPPLER/CF WO CONTRAST (11/20/2024 1:23 PM CDT) LV EF 60 % CONS SCIMAGE Anatomical Region Laterality Modality Ultrasound 11/20/2024 12:5 6 PM CDT Narrative 11/20/2024 3:31 PM CDT [facility] Medical Group Cardiology [address] [facility] [address] [address] [address] [facility] [address], [place] [address] P:[phone] P:[phone] Echocardiographic Report Patient Name: MICHELLE HENRY AN : 1945 Study Date: 11/20/2024 12:56:39 PM Gender: F Tech: Location: [place] Ref Provider: TRINA RODRIGUEZ Height(Cm): 155 BSA: [...] FINDINGS: Interpretation Site: Exam was interpreted at [facility]. Left Ventricle: Mild enlargement of left [...] regurgitation. Electronically Signed By: Ricardo Hawthorne MD, [facility] 11/20/2024 3:31:17 PM CDT Procedure Note Ricardo Hawthorne MD - 11/20/2024 [facility] Medical Group Cardiology [address] [facility] [address], [place] [address] [address] [facility] [address], [place] [address] P:[phone] P:[phone] Echocardiographic Report Patient Name: ALTHEA, MICHELLE, AN : 1945 Study Date: 11/20/2024 12:56:39 PM Gender: F Tech: Location: [facility] Provider: TRINA RODRIGUEZ Height(Cm): 155 BSA: [...] FINDINGS: Interpretation Site: Exam was interpreted at [facility]. Left Ventricle: Mild enlargement of left [...] regurgitation. Electronically Signed By: Ricardo Hawthorne MD, [facility] 11/20/2024 3:31:17 PM CDT Trina Rodriguez NP [...] AM CDT FASTING:YES FASTING: YES Trina Rodriguez RESIDENT SERVICE COORDINATOR LAB BLOOD ORDERABLES Randa l Result Performing Organization Address [facility] Co de Phone Number [facility] [address] [place] [address] * Creatine kinase (CK), total (11/19/2024 11:10 AM CDT) Pathologist [facility] CK 47 18 - 225 U/L [facility] Blood 11/19/2024 11:1 0 AM CDT 11/19/2024 11:10 AM CDT Narrative [facility] - 11/20/2024 5:43 AM CDT FASTING:YES FASTING: YES Trina Rodriguez RESIDENT SERVICE COORDINATOR LAB BLOOD ORDERABLES Randa l Result Performing Organization Address [facility] Co de Phone Number [facility] [address] [place] [address] * (ABNORMAL) Comprehensive metabolic panel (11/19/2024 11:10 AM CDT) Pathologist [facility] Glucose 98 65 - 99 [...] AM CDT FASTING:YES FASTING: YES Trina Rodriguez RESIDENT SERVICE COORDINATOR LAB BLOOD ORDERABLES Randa l Result [facility] [address] [address] [phone] * Hemoglobin A1c (07/31/2024 9:09 AM PLATFORM MAN) Hgb A1C 5.3 4.0 - 5.6 % Estimated Average Glucose 105 mg/dL [facility] XIE Comment: The ADA recommends reporting an estimated Average Glucose (eAG) with all Hemoglobin A1c results using the equation derived from a study of 507 normal and diabetic adults. Minority populations were underrepresented and children were not included. (Diabetes Care 31:0553-2432, 2008). The eAG is not equivalent to a fasting glucose. Blood 07/31/2024 9:09 AM PLATFORM MAN 07/31/2024 9:35 AM PLATFORM MAN Fidelia Samuels RESIDENT SERVICE COORDINATOR LAB BLOOD ORDERABLES Final Res ult [facility] [address] Department [place] [address] * (ABNORMAL) Lipid panel (06/10/2024) SCRIBED Cholesterol, Total 196 < - 200 EXTERNAL LAB SCRIBED HDL 56(A) > - 40 EXTERNAL LAB SCRIBED LDL 112(A) < - 100 EXTERNAL LAB SCRIBED Triglycerides 95 < - 150 EXTERNAL LAB Blood 06/10/2024 Historical Provider MD LAB BLOOD ORDERABLES Randa l Result EXTERNAL LAB from Last 3 Months or Most Recently Relevant to Health Maintenance Insurance T MEDICARE TNA MEDICARE Advance Directives For more information, please contact: [phone] Documents on File Type Date Recorded Patient Booth Cleaner Expl anation ADVANCE DIRECTIVE 09/11/2024 1:01 PM POWER OF ELECTROTHERAPIST-MEDICAL * Full Code (Latest Code Status on File) Date Activated Date Inactivated Comments 08/28/2024 3:22 PM 09/10/2024 5:56 PM Care Teams Sewing Department Supervisor Relationship Specialty Start Date End Date Meme Richardson DO [address] [facility] [address] [address] PCP - General Family Medicine 09/10/24 Dusty Bernal MD [address] [place] [address] Surgeon Cardiothoracic Surgery 09/10/24 Brendan Pool MD [address] [facility] [address] [place] [address] Consulting Physician Cardiology 09/10/24 Miscellaneous, Not In File 09/10/24
--- OUTSIDE RECORDS SUMMARY | 2025-01-17 17:48 | XMS_ITS | Encounter Summary ---
Author Organization [facility] Healthcare Address [address] [place] [address] Care Team Providers Care Residential Worker Name Role Phone Meme Richardson DO Primary Care Provider [phone] Dusty Bernal MD Unavailable [phone] Brendan Pool MD Unavailable Miscellaneous, Not In File Unavailable Unava ilable Encounter Details Date Type Department Care Team (Late st Contact Info) Description 11/20/2024 Results Follow-Up [facility] Medical Group Cardiology [address] [place] [address] Trina Newman, AYAAN [address] [place] [address] CBC with auto differential, Comprehensive metabolic panel, Creatine kinase (CK), total Social History Tobacco Use Types Packs/Day Years [...] materials from doctor or pharmacy Never 10/23/2024 [facility] Utilities Answer Date Recorded In the past 12 months has th e electric, gas, oil, or water [employer] threatened to shut off services in your [...] often do you attend chur ch or worship services? More than 4 times per year 08/30/2024 Do you belong to any clubs o r organizations such as oriental orthodox groups, unions, fraternal or athletic groups, or [...] were you homeless or living in a longterm (including now)? No 08/30/2024 Personal Safety Answer [...] on filedocumented in this encounter Care Teams Residential Worker Relationship Specialty Start Date End Date Meme Richardson DO [facility] [address] [place] [address] PCP - General Family Medicine 09/10/24 Dusty Bernal MD [address] [facility] [address] [place] [address] Surgeon Cardiothoracic Surgery 09/10/24 Brendan Pool MD [address] [address] Consulting Physician Cardiology 09/10/24 Miscellaneous, Not In File 09/10/24 documented as of this encounter
--- OUTSIDE RECORDS SUMMARY | 2025-01-17 17:48 | XMS_ITS | Referral Summary ---
Author Organization [place] [address] [address] [place] [address] Care Team Providers Care Vehicle Body Maker Name Role Phone Meme Richardson DO Primary Care Provider [phone] Dusty Bernal MD Unavailable [phone] Brendan Pool MD Unavailable Miscellaneous, Not In File Unavailable Unava ilable Encounters Date Type Department Care Team Description 12/25/2024 Telephone [facility] Cardiology [address] [place] [address] [address] [place] [address] Brendan Pool MD 11/20/2024 Telephone [facility] Cardiology [address] [place] [address] [address] [place] [address] Trina Rodriguez NP 11/20/2024 Results Follow-Up [facility] Cardiology [address] [place] [address] [address] [place] [address] Trina Rodriguez NP CBC with auto differential, Comprehensive metabolic panel, Creatine kinase (CK), total 11/20/2024 1:00 PM CDT Ancillary Procedure [facility] Cardiology [address] [place] [address] [address] [place] [address] Shortness of breath 11/19/2024 Telephone [facility] Cardiology [address] [place] [address] [address] [place] [address] Brendan Pool MD 11/19/2024 9:00 AM CDT Office Visit [facility] Cardiology [address] [place] [address] Trina Rodriguez NP Shortness of breath (Primary Dx); Fatigue, unspecified type; Coronary artery disease of burns paiute artery of burns paiute heart with stable angina pectoris; S/P CABG x 4; Status post mitral valve annuloplasty; Statin myopathy; Paroxysmal atrial fibrillation (HCC); Chronic anticoagulation 10/23/2024 11:00 AM CDT Home Care Visit [facility] Home Health - [address] [place] [address] Swathi Pepper RN SN OASIS DISCHARGE from Last 3 Months Allergies Active Allergy Reactions Criticality Noted Date Comments Niacin Headache Low 07/10/2024 Xhzasch-Lid-Opu Reductase Inhibitors Other (See comments) Low 07/10/2024 Certain statins caused muscle weakness Medications cholecalciferol , vitamin D3, 1,000 unit tablet,chewable Indications:sup plement Take 1 tablet/chew tab by mouth chocolate temperer before breakfast Active atorvastatin (LIPITOR) 40 mg tabletIndicatio ns:hyperlipidem ia Take 1 tablet (40 mg total) by mouth daily 90 tablet 3 07/02/20 24 Active cetirizine 10 mg capsuleIndicati ons:Allergic Rhinitis Take 1 tablet by mouth chocolate temperer before breakfast Active fluticasone propionate (FLONASE) 50 [...] artery disease of n ative artery of burns paiute heart with stable angina pectoris 06/28/2024 Social [...] materials from doctor or pharmacy Never 10/23/2024 [facility] Utilities Answer Date Recorded In the past 12 months has th e electric, gas, oil, or water company threatened to [...] often do you attend chur ch or mu-ism services? More than 4 times per year 08/30/2024 Do you belong to any clubs o r organizations such as amish groups, unions, fraternal or athletic groups, or [...] time in the past 12 m [facility], were you homeless or living in [...] on file Medical Devices Implanted Type Area Manufacturing Production Manager Device Identifier Shelf Expiration Date Model / Serial / Lot [employer]keon [employer] Chente-Mcca rtcarolynn-Orozco Imr Etlogix 28mm 3d Reduced Curvature [id number] - [id number] - [id number] Implanted:Qty: 1 on 08/28/2024 by Dusty Bernal MD at Other - see comments N/A: Heart [employer] 08/30/2028 [id number] / [id number] / [employer] Plate Bone Low Profile 6 Hole O Shape Sternum Ti 115.104.06 - [id number] Implanted:Qty: 1 on 08/28/2024 by Dusty Bernal MD at Plate N/A: Sternum [employer] 115.104. 06 / / [employer] Plate Bone Low Profile 6 Hole H Shape Sternum Ti 115.102.06 - [id number] Implanted:Qty: 1 on 08/28/2024 by Dusty Bernal MD at Plate N/A: Sternum [employer] 115.102. 06 / / [employer] Plate Bone Low Profile 4 Hole Box Sternum Ti 115.103.04 - [id number] Implanted:Qty: 1 on 08/28/2024 by Dusty Bernal MD at Plate N/A: Sternum [employer] 115.103. 04 / / [employer] Screw Bone Slf Drl Full Thread Locking 3.5x18mm Ti 100.035.18 - [id number] Implanted:Qty: 2 on 08/28/2024 by Dusty Bernal MD at Screw N/A: Sternum [employer] 100.035. 18 / / [employer] Screw Bone Slf Drl Full Thread Locking 3.5x16mm Ti 100.035.16 - [id number] Implanted:Qty: 14 on 08/28/2024 by Dusty Bernal MD at Screw N/A: Sternum [employer] 100.035. 16 / / Procedures Procedure Name Priority Date/Time Associated Diagnosis Comments TRANSTHORACIC ECHO (TTE) COMPLETE W DOPPLER/CF WO CONTRAST Routine 11/20/2024 1:23 PM CDT Shortness of breath CREATINE KINASE (CK), TOTAL Routine 11/19/2024 11:10 AM CDT Coronary artery disease of burns paiute artery of burns paiute heart with stable angina pectoris COMPREHENSIVE METABOLIC PANEL Routine 11/19/2024 11:10 AM CDT Coronary artery disease of burns paiute artery of burns paiute heart with stable angina pectoris CBC WITH AUTO DIFFERENTIAL Routine 11/19/2024 11:10 AM CDT Coronary artery disease of burns paiute artery of burns paiute heart with stable angina pectoris HEMOGLOBIN A1C Routine 07/31/2024 9:09 AM CAFETERIA OPERATOR Encounter for preadmission testing Other specified [...] PM CDT Narrative 11/20/2024 3:31 PM CDT [facility] Cardiology [address] [facility] [address] [address] [address] [facility] [address], [place] [address] P:[phone] P:[phone] Echocardiographic Report Patient Name: MICHELLE HENRY AN : 1945 Study Date: 11/20/2024 12:56:39 PM Gender: F Tech: Location: [place] Ref Provider: TRINA RODRIGUEZ Height(Cm): 155 BSA: [...] FINDINGS: Interpretation Site: Exam was interpreted at [facility]. Left Ventricle: Mild enlargement of left ventricle [...] regurgitation. Electronically Signed By: Ricardo Hawthorne MD, [facility] 11/20/2024 3:31:17 PM CDT Procedure Note Ricardo Hawthorne MD - 11/20/2024 [facility] Cardiology [address] [facility] [address], [place] [address] [address] [facility] [address], [place] [address] P:[phone] P:[phone] Echocardiographic Report Patient Name: MICHELLE HENRY AN : 1945 Study Date: 11/20/2024 12:56:39 PM Gender: F Tech: Location: [facility] Provider: TRINA RODRIGUEZ Height(Cm): 155 BSA: [...] FINDINGS: Interpretation Site: Exam was interpreted at [facility]. Left Ventricle: Mild enlargement of left ventricle [...] AM CDT FASTING:YES FASTING: YES Trina Rodriguez CIGAR HEAD HOLER LAB BLOOD ORDERABLES Randa l Result Performing Organization Address [facility] Co de Phone Number [facility] [address] [place] [address] * Creatine kinase (CK), total (11/19/2024 11:10 AM CDT) [facility] CK 47 18 - 225 U/L [facility] Blood 11/19/2024 11:1 0 AM CDT 11/19/2024 11:10 AM CDT Narrative [facility] - 11/20/2024 5:43 AM CDT FASTING:YES FASTING: YES Trina Rodriguez CIGAR HEAD HOLER LAB BLOOD ORDERABLES Randa l Result Performing Organization Address City/[facility]/ZIP Co de Phone Number [facility] [address] [place] [address] * (ABNORMAL) Comprehensive metabolic panel (11/19/2024 11:10 AM CDT) Pathologist [facility] Glucose 98 65 - 99 mg/dL [facility] [...] BLOOD ORDERABLES Randa l Result [facility] [address] [place] [address] * Hemoglobin A1c (07/31/2024 9:09 AM CAFETERIA OPERATOR) Hgb A1C 5.3 4.0 - 5.6 % Estimated Average Glucose 105 mg/dL [facility] XIE Comment: The ADA recommends reporting an estimated Average Glucose (eAG) with all Hemoglobin A1c results using the equation derived from a study of 507 normal and diabetic adults. Minority populations were underrepresented and children were not included. (Diabetes Care 31:2944-5975, 2008). The eAG is not equivalent to a fasting glucose. Blood 07/31/2024 9:09 AM CAFETERIA OPERATOR 07/31/2024 9:35 AM CAFETERIA OPERATOR Fidelia Samuels CIGAR HEAD HOLER LAB BLOOD ORDERABLES Final Res ult [facility] [address] [address] [place] [address] * (ABNORMAL) Lipid panel (06/10/2024) SCRIBED Cholesterol, Total 196 < - 200 EXTERNAL LAB SCRIBED HDL 56(A) > - 40 EXTERNAL LAB SCRIBED LDL 112(A) < - 100 EXTERNAL LAB SCRIBED Triglycerides 95 < - 150 EXTERNAL LAB Blood 06/10/2024 us Historical Provider LAB BLOOD ORDERABLES Randa l Result EXTERNAL LAB from Last 3 Months or Most Recently Relevant to Health Maintenance Insurance T MEDICARE AETNA MEDICARE Advance Directives For more information, please contact: [phone] Documents on File Type Date Recorded Patient Dynamo Repairer Expl anation ADVANCE DIRECTIVE 09/11/2024 1:01 PM POWER OF ROLLING MACHINE OPERATOR-MEDICAL * Full Code (Latest Code Status on File) Date Activated Date Inactivated Comments 08/28/2024 3:22 PM 09/10/2024 5:56 PM Care Teams Vehicle Body Maker Relationship Specialty Start Date End Date Meme Richardson DO [address] [facility] [address] [address] PCP - General Family Medicine 09/10/24 Dusty Bernal MD [address] [place] [address] Surgeon Cardiothoracic Surgery 09/10/24 Brendan Pool MD [address] [address] Consulting Physician Cardiology 09/10/24 Miscellaneous, Not In File 09/10/24
--- OUTSIDE RECORDS SUMMARY | 2025-01-17 17:48 | XMS_ITS | Encounter Summary ---
Author Organization [facility] Healthcare Address [address] [place] [address] Care Team Providers Care Shrinker Name Role Phone Meme Richardson Primary Care Provider [phone] Ginioswaldo Mememo Mackenzie DO Primary Care Provider [phone] Dusty Bernal MD Unavailable [phone] Brendan Pool MD Unavailable Miscellaneous, Not In File Unavailable Unava ilable Encounter Details Date Type Department Care Team (Late st Contact Info) Description 06/13/[address] [facility] Health Information Management [address] [place] [address] Tere Schmitt MD [address] [place] [address] Social History Tobacco Use Types Packs/Day [...] on filedocumented in this encounter Care Teams Shrinker Relationship Specialty Start Date End Date Meme Richardson DO [address] [facility] [address] [place] [address] PCP - General Family Medicine 06/10/24 09/09/24 Meme Richardson DO [address] [facility] [address] [place] [address] PCP - General Family Medicine 09/10/24 Dusty Bernal MD [id number] [place] [address] Surgeon Cardiothoracic Surgery 09/10/24 Brendan Pool MD [address] [facility] [address] [place] [address] Consulting Physician Cardiology 09/10/24 Miscellaneous, Not In File 09/10/24 documented as of this encounter
--- NOTE | 2025-01-17 17:50 | ED.SOB ---
HPI - SOB/Dyspnea General Chief Complaint: Shortness of Breath/Dyspnea Stated Complaint: Cough / High BP Time Seen by Provider: 01/17/25 18:05 Source: patient Mode of arrival: ambulatory Limitations: no limitations History of Present Illness HPI Narrative: Michelle is a 79-year-old female patient presenting to the today with complaints cough, high blood pressure, and shortness of breath. She reports she has had increased difficulty breathing and cough over the last few days. Cough is nonproductive. Of denies any fevers, chills, body aches. Denies any chest pain. States that her blood pressure was 190 systolic at home. She contacted her family doctor and they recommend she come to the Urgent Care for evaluation. Related Data Home Medications ?Medication ?Instructions ?Recorded ?Confirmed ?Last Taken ?Type acetaminophen 500 mg capsule 1,000 mg PO Q6H PRN 09/27/24 01/09/25 Unknown History apixaban 5 mg tablet (Eliquis) mg PO BID 09/27/24 01/09/25 Unknown History cholecalciferol (vitamin D3) 25 25 mcg PO DAILY 09/27/24 01/09/25 Unknown History mcg (1,000 unit) tablet clopidogrel 75 mg tablet (Plavix) 75 mg PO DAILY 09/27/24 01/09/25 Unknown History famotidine 20 mg tablet mg PO DAILY 09/27/24 01/09/25 Unknown History fluticasone propionate 50 1 spray intranasal DAILY 09/27/24 01/09/25 Unknown History mcg/actuation nasal spray,suspension (Flonase Allergy Relief) losartan 50 mg tablet 25 mg PO DAILY 09/27/24 01/09/25 Unknown History psyllium 1 tbsp PO DAILY 10/24/24 01/09/25 Unknown History simethicone 125 mg capsule (Gas 125 mg PO DAILY PRN 10/24/24 01/09/25 Unknown History Relief (simethicone)) vitamins A,C,Y-dzlm-rludmb 4,296 1 cap PO BID 10/24/24 01/09/25 Unknown History mcg-226 mg-90 mg capsule (PreserVision AREDS) metronidazole 0.75 % topical cream 1 applic topical DAILY 10/26/24 01/09/25 Unknown History cetirizine 10 mg capsule (All Day 10 mg PO DAILY 01/01/25 01/09/25 Unknown History Allergy (cetirizine)) ferrous sulfate 325 mg (65 mg 325 mg PO DAILY 01/01/25 01/09/25 Unknown History iron) tablet metoprolol tartrate 25 mg tablet mg PO BID 01/01/25 01/09/25 Unknown History Allergies Allergy/AdvReac Type Severity Reaction Status Date / Time rosuvastatin Allergy Intermediate myalgias, Verified 01/09/25 10:11 elevated CK simvastatin Allergy Intermediate myalgias, Verified 01/09/25 10:11 elevated CK inositol AdvReac Intermediate Flushing Verified 01/09/25 10:11 niacin AdvReac Intermediate significant Verified 01/09/25 10:11 flushing, will not tolerate Review of Systems Review of Systems: Pertinent positives per HPI. Patient denies any fever, chills, rash, headache, visual changes, dizziness, chest pain, palpitations, nausea, vomiting, diarrhea, constipation, abdominal pain, or any urinary issues. [facility] Past Medical History Medical History Irritation of external ear canal Left ear impacted cerumen Macular degeneration Hypertension Lipoma (~2012) Hepatitis C antibody test negative (~04/11/17) Cervical spondylosis Postmenopausal osteoporosis Metabolic syndrome X Overweight Mixed hyperlipidemia Surgical History Surgical History 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 History of esophagogastroduodenoscopy (EGD) (~05/14/09) History of tubal ligation (~1975) History of colonoscopy (~01/21/05) History of colonoscopy (~06/17/15) Family History Family History Father Family history of diabetes mellitus in first degree relative Acute myocardial infarction, Onset Age: 64 Family history of cardiovascular disease Diabetes mellitus Hypertension Mother Acute myocardial infarction, Onset Age: 66 Family history of cardiovascular disease Depression Hypertension Family history of malignant neoplasm of thyroid Sibling Acute myocardial infarction Social History Social History Social History: Caffeine- coffee Smoking status: Never smoker Second hand tobacco smoke exposure: No Alcohol intake: current Drinks per week: 2 Alcohol use details: Occasional Substance use: never Substance use type: does not use Do You Feel Safe in your Home?: Yes Lack of Transportation: No Lack of Food: Never True Current Housing: I Do Not Have Housing Concerned About Future Housing: No Difficulty Paying Gas/Electric Bills: No Difficulty Paying for Meds: No Currently Unemployed: No Education: Master's Degree or Higher Difficulty w/ Childcare or Family Care: No Occupation/Education: retired Gender identity (if verbalized by the patient): Female Spiritual care concerns: No Comments At the time of my signature, I reviewed and agree with the nursing past medical, surgical, social, and family history. There is no relevant family history pertinent to the patient complaint. Exam Narrative: General: Well-developed, well nourished, in no apparent distress Head: Normocephalic, atraumatic Eyes: Pupils equally round and reactive to light bilaterally, EOM intact, sclera and conjunctive clear, no discharge, lids normal Ears: TMs intact and clear, ear canals clear, no drainage, grossly hearing normal. Nose: Nares patent, no discharge, no inflammation, no sinus tenderness. Mouth: Oral pharynx without lesions or masses, good dentition, MMM. Neck: Supple, trachea midline, no enlargement of anterior or posterior cervical nodes, no thyroid masses or goiter palpable. Cardio: Heart rate irregular with PVCs and PACs, s1 and s2 normal, systolic murmur grade 3/6 appreciated. Resp: Clear to auscultation bilaterally, no rhonchi, rales, wheezing or rubs Extremities: No deformity, 2+ pitting edema, no cyanosis, capillary refill less than 2 seconds, peripheral pulses palpable and strong. Integumentary: [place], warm, and dry, intact without lesion, no rashes. Course Course Emergency Course: Portions of this record may have been created with voice recognition software. Level of Care: Express Care Visit Vital Signs Vital signs: Vital Signs Temperature 36.5 C 01/17/25 17:52 Pulse Rate 56 L 01/17/25 17:52 Respiratory Rate 32 H 01/17/25 17:52 Blood Pressure 154/62 H 01/17/25 17:52 Pulse Oximetry 98 01/17/25 17:52 Oxygen Delivery Room Air 01/17/25 17:52 Temperature 36.5 C 01/17/25 17:52 Pulse Rate 56 L 01/17/25 17:52 Respiratory Rate 32 H 01/17/25 17:52 Blood Pressure 154/62 H 01/17/25 17:52 Pulse Oximetry 98 01/17/25 17:52 Oxygen Delivery Room Air 01/17/25 17:52 Vital signs reviewed MDM - SOB/Dyspnea MDM Narrative Medical decision making narrative: At the time of visit patient is resting comfortably on the exam table. Patient appears to be nontoxic. Plan: Patient is concerned about her blood pressure being elevated, she reports she is increasingly short of breath and has a nonproductive cough. Has 2+ pitting edema in the lower extremities. States she has atelectasis in the left lower lobe of the lung. Recommend transfer to the ER for further evaluation. Patient agrees to transfer and would like to go to [facility] emergency room. Report called to Alejandrina KUO and report was given for continuity of care. Alejandrina accepts patient. Patient to go via private car. Oxygen saturations 98% on room air patient is able to speak in full sentences. Her heart rate is 50s to 80s. Differential Diagnosis Differential diagnosis: Likely acute exacerbation of chronic obstructive airways disease, congestive heart failure, community acquired pneumonia, asthma with exacerbation, pulmonary embolism and other (Pleural effusion) Discharge Plan Discharge Clinical Impression: Shortness of breath, 2+ pitting edema Hypertension Qualifiers: Hypertension type: unspecified Qualified Code(s): I10 - Essential (primary) hypertension Cough Qualifiers: Cough type: acute Qualified Code(s): R05.1 - Acute cough Patient Disposition: Acute Care Hospital Condition: Stable Instructions: Antibiotic Form Patient Language: Surinamese Prescriptions: No Action Eliquis 5 mg tablet PO BID famotidine 20 mg tablet PO DAILY cholecalciferol (vitamin D3) 25 mcg (1,000 unit) tablet 25 mcg PO DAILY fluticasone propionate [Flonase Allergy Relief] 50 mcg/actuation spray,suspension 1 spray intranasal DAILY Rx Instructions: administer into each nostril losartan 50 mg tablet 25 mg PO DAILY clopidogrel [Plavix] 75 mg tablet 75 mg PO DAILY Patient Comments: Prescribed at Hospital discharge on 09/11/24 by cardiology acetaminophen 500 mg capsule 1,000 mg PO Q6H PRN All Day Allergy (cetirizine) 10 mg capsule 10 mg PO DAILY PreserVision AREDS 4,296 mcg-226 mg-90 mg capsule 1 cap PO BID psyllium Powder 1 tbsp PO DAILY Rx Instructions: mix into at least 8 oz of water or juice before administering simethicone [Gas Relief (simethicone)] 125 mg capsule 125 mg PO DAILY PRN metoprolol tartrate 25 mg tablet PO BID ferrous sulfate 325 mg (65 mg iron) tablet 325 mg PO DAILY furosemide 20 mg tablet 10 mg PO QAM Qty: 30 0RF potassium chloride [Klor-Con 10] 10 mEq tablet extended release 10 meq PO DAILY Qty: 30 0RF (DME) BreatheRite MDI Spacer Spacer See Rx Instructions .Route Qty: 1 0RF Rx Instructions: Use spacer with your inhaler as needed atorvastatin 40 mg Tablet 40 mg PO DAILY Qty: 30 0RF sennosides-docusate sodium [Senokot-S] 8.6-50 mg Tablet 1 tab PO HS Qty: 30 0RF sertraline 50 mg tablet 50 mg PO DAILY Qty: 90 1RF metronidazole 0.75 % cream 1 applic topical DAILY albuterol sulfate [Ventolin HFA] 90 mcg/actuation HFA aerosol inhaler 2 inh inhalation Q4H PRN (Reason: shortness of breath or wheezing) Qty: 8.5 0RF mupirocin calcium 2 % cream 1 applic topical BID Qty: 15 1RF Follow-up/Referrals: Meme Richardson DO [Primary Care Provider] - Time of Disposition: 18:13 Quality NIHSS Nursing Documentation ED NIHSS nursing documentation: reviewed/agree
[2025-01-17 17:52] VITALS: BP 154/62; PULSE 56; RESP 32; TEMP 36.5; O2SAT 98
== END 2025-01-17 18:12 | disposition short-term general hospital (02) ==
PROVIDERS: Emergency Provider Nurse Practitioner Family; PCP Family Medicine
DX: R06.02 Shortness of breath (principal); R60.0 Localized edema; I10 Essential (primary) hypertension; R05.1 Acute cough; E78.2 Mixed hyperlipidemia; E88.810 Metabolic syndrome; H35.30 Unspecified macular degeneration; M47.812 Spondylosis without myelopathy or radiculopathy, cervical region; Z95.1 Presence of aortocoronary bypass graft; Z79.01 Long term (current) use of anticoagulants
CPT/HCPCS: 99212; G0463

== ENCOUNTER 2025-01-17 18:28 | Inpatient (IN) | payer MEDICARE, SELFPAY ==
--- NOTE | ~2025-01-17 | XR_ITS ---
XR chest 2V Ordering provider: Neel Jackson History: 79 years Female with . sob . Comparison: December 27, 2024 FINDINGS: MEDIASTINUM: The cardiac silhouette is slightly enlarged. Congestive pao. Postoperative changes in t he mediastinum. LUNGS: No effusions or pneumothorax. Opacification in the left lung base is seen suggestive of atelec tasis pneumonia. OTHER: No free air under the diaphragm. IMPRESSION: Left basilar atelectasis versus pneumonia. Reviewed, dictated and finalized at location A.
--- NOTE | ~2025-01-17 | CT_ITS ---
CTA chest PE protocol Ordering provider: David Jim MD History: 79 years Female with . worsening lary, recent CABG . Comparison: December 29, 2024 Technique: CT angiogram chest was performed following timed intravenous injection of contrast. Thin s lice axial images and reformatted coronal images were obtained. Three dimensional reformatted images of the chest were also obtained using a [employer] workstation. . Automated exposure control and iterati ve reconstruction technique were employed. The dose-length product was 246.02 mGy-cm. 100 mL Omnipaqu e 350 was given IV. Findings: PULMONARY ARTERIES: No pulmonary embolus. VISUALIZED THORACIC INLET: Normal. MEDIASTINUM: Aorta/coronary arteries: Mild atheromatous disease. Heart/other: The heart is moderately enlarged. Reflux of the contrast into the hepatic veins which i s suggestive of right-sided failure. Lymph nodes: No mediastinal or hilar adenopathy. Postoperative changes in the mediastinum. LUNGS: Minimal right pleural effusion. Left basilar atelectasis versus pneumonia. No pulmonary nodules or ma sses. No pneumothorax. VISUALIZED UPPER ABDOMEN: Cholelithiasis. Otherwise, the visualized upper abdomen is normal. MUSCULOSKELETAL: Soft tissues: The superficial soft tissues are normal. Bones: Age appropriate degenerative changes of the spine. Fracture in the left fifth, sixth and seven th ribs. IMPRESSION: 1. No pulmonary embolism. 2. Cardiomegaly with reflux of contrast in the IVC and hepatic veins suggestive of right-sided failu re. 3. 4. Left basilar atelectasis versus pneumonia. 5. Minimal right pleural effusion. 6. Cholelithiasis. Reviewed, dictated and finalized at location A. IMPRESSION: 1. No pulmonary embolism. 2. Cardiomegaly with reflux of contrast in the IVC and hepatic veins suggestiv e of right-sided failure. 3. 4. Left basilar atelectasis versus pneumonia. 5. Minimal right pleural effusion. 6. Cholelithiasis.
--- NOTE | 2025-01-17 18:38 | ECG_ITS ---
Test Date: 2025-01-17 18:40:59 Measurements Intervals [place] Rate: 60 P: 0 MN: 0 QRS: -11 QRSD: 76 T: 125 QT: 438 QTc: 438 Interpretive Statements ECTOPIC ATRIAL RHYTHM WITH SUPRAENTRICULAR BIGEMINY AND VENTRICULAR PREMATURE COMPLEX LEFT VENTRICULAR HYPERTROPHY AND ST-T CHANGE POOR R WAVE PROGRESSION BASELINE ARTIFACT- I, II, III, AVR, AVL, V5 ABNORMAL ECG Compared to ECG 06/14/2024 02:17:17 SINUS RHYTHM NO LONGER PRESENT Electronically Signed On 01-17-2025 19:20:42 CDT by Kale Jules D.O.
[2025-01-17 18:49] VITALS: BP 166/67; PULSE 53; RESP 22; TEMP 36.4; O2SAT 98
[2025-01-17 18:53] VITALS: PULSE 53
[2025-01-17 19:00] VITALS: BP 182/72; PULSE 62; RESP 26; O2SAT 97
[2025-01-17 19:17] LABS: Basophils Absolute Auto 0.1 K/mm3 (0.0-0.1); Basophils Percent Auto 1.1 % (0.2-1.2); Eosinophils Absolute Auto 0.2 K/mm3 (0-0.3); Eosinophils Percent Auto 2.6 % (0-4.4); Hematocrit 40.8 % (37.0-47.0); Hemoglobin 12.6 g/dL (12.0-15.0); Immature Granulocyte Absolute 0.04 K/mm3 (0.00-0.031); Immature Granulocyte Percent A 0.5 % (0-0.5); Immature Platelet Fraction Pct 2.5 % (0.9-11.2); Lymphocytes Absolute Auto 1.76 K/mm3 (0.9-3.2); Lymphocytes Percent Auto 21.1 % (18.3-44.2); Mean Corpuscular HGB Conc 30.9 g/dl (32-36); Mean Corpuscular Volume 87.4 fl (80-100); Mean Platelet Volume 10.7 fl (7.4-10.4); Monocytes Absolute Auto 0.9 K/mm3 (0.1-0.6); Monocytes Percent Auto 10.4 % (2.6-8.5); Neutrophils Absolute Auto 5.4 K/mm3 (1.3-6.7); Neutrophils Percent Auto 64.3 % (45.5-73.1); Platelet Count Result 221 k/mm3 (150-375); Red Blood Count 4.67 M/mm3 (4.2-5.4); Red Cell Distribution Width 24.5 % (11.5-14.5); White Blood Count 8.3 K/mm3 (4.5-10.0)
--- NOTE | 2025-01-17 19:27 | ED_ITS ---
HPI - SOB/Dyspnea General Chief Complaint: Shortness of Breath/Dyspnea Stated Complaint: sent from Time Seen by Provider: 01/17/25 19:01 History of Present Illness HPI Narrative: 79-year-old female with complex cardiac history including recent 4 vessel bypass CABG in August. She has history of coronary disease, hypertension, atrial fibrillation on Eliquis. Patient presents to the emergency department after being referred from urgent care. She has been having a nonproductive cough and worsening shortness of breath for last few weeks. She states that she told her flexographic printing press operator about this several weeks ago and was being monitored outpatient. Her primary doctor started her on Lasix for some pitting edema her legs. She states she has a pulmonology appointment next week and a cardiology appointment at the end of the month. Denies any chest pain, nausea, vomiting, back pain, fever, chills, abdominal pain. She states that she is having worsening shortness of breath and now feels short of breath even while resting. States it is worse with exertion but denies any chest pain or exertional chest pain. Related Data Home Medications ?Medication ?Instructions ?Recorded ?Confirmed ?Last Taken ?Type acetaminophen 500 mg capsule 1,000 mg PO Q6H PRN fever or pain 09/27/24 01/18/25 Unknown History apixaban 5 mg tablet (Eliquis) 5 mg PO BID 09/27/24 01/18/25 01/17/25 History cholecalciferol (vitamin D3) 25 25 mcg PO DAILY 09/27/24 01/18/25 Unknown History mcg (1,000 unit) tablet clopidogrel 75 mg tablet (Plavix) 75 mg PO DAILY 09/27/24 01/18/25 Unknown History famotidine 20 mg tablet 20 mg PO DAILY 09/27/24 01/18/25 Unknown History fluticasone propionate 50 1 spray intranasal DAILY 09/27/24 01/18/25 Unknown History mcg/actuation nasal spray,suspension (Flonase Allergy Relief) losartan 50 mg tablet 25 mg PO DAILY 09/27/24 01/18/25 Unknown History psyllium 1 tbsp PO DAILY 10/24/24 01/18/25 Unknown History simethicone 125 mg capsule (Gas 125 mg PO DAILY PRN abdominal 10/24/24 01/18/25 Unknown History Relief (simethicone)) distention vitamins A,C,D-tomy-ayijuz 4,296 1 cap PO BID 10/24/24 01/18/25 Unknown History mcg-226 mg-90 mg capsule (PreserVision AREDS) cetirizine 10 mg capsule (All Day 10 mg PO DAILY 01/01/25 01/18/25 Unknown History Allergy (cetirizine)) metoprolol tartrate 25 mg tablet 12.5 mg PO BID 01/01/25 01/18/25 01/17/25 History Allergies Allergy/AdvReac Type Severity Reaction Status Date / Time rosuvastatin Allergy Intermediate myalgias, Verified 01/17/25 18:52 elevated CK simvastatin Allergy Intermediate myalgias, Verified 01/17/25 18:52 elevated CK inositol AdvReac Intermediate Flushing Verified 01/17/25 18:52 niacin AdvReac Intermediate significant Verified 01/17/25 18:52 flushing, will not tolerate Review of Systems 2 Review of Systems: As reviewed above in HPI [facility] Past Medical History Medical History Irritation of external ear canal Left ear impacted cerumen Macular degeneration Hypertension Lipoma (~2012) Hepatitis C antibody test negative (~04/11/17) Cervical spondylosis Postmenopausal osteoporosis Metabolic syndrome X Overweight Mixed hyperlipidemia Surgical History Surgical History 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 History of esophagogastroduodenoscopy (EGD) (~05/14/09) History of tubal ligation (~1975) History of colonoscopy (~01/21/05) History of colonoscopy (~06/17/15) Family History Family History Father Family history of diabetes mellitus in first degree relative Acute myocardial infarction, Onset Age: 64 Family history of cardiovascular disease Diabetes mellitus Hypertension Mother Acute myocardial infarction, Onset Age: 66 Family history of cardiovascular disease Depression Hypertension Family history of malignant neoplasm of thyroid Sibling Acute myocardial infarction Social History Social History Social History: Caffeine- coffee Smoking status: Never smoker Second hand tobacco smoke exposure: No Alcohol intake: current Drinks per week: 2 Alcohol use details: Occasional Substance use: never Substance use type: does not use Do You Feel Safe in your Home?: Yes Lack of Transportation: No Lack of Food: Never True Current Housing: I Have Housing Concerned About Future Housing: No Difficulty Paying Gas/Electric Bills: No Difficulty Paying for Meds: No Currently Unemployed: No Education: Master's Degree or Higher Difficulty w/ Childcare or Family Care: No Occupation/Education: retired Gender identity (if verbalized by the patient): Female Spiritual care concerns: No Exam 2 Narrative: GENERAL: [Well-appearing, well-nourished, and in no acute distress.] HEAD: [Normocephalic, atraumatic.] EYES: [PERRLA and EOMI.] ENT: Nares clear, no rhinorrhea or epistaxis. Mucous membranes moist. NECK: Supple. CHEST: [Clear to auscultation. No respiratory distress.] Sternotomy scar present HEART: [Regular rate and rhythm]. No murmur heard. [Normal peripheral pulses.] ABDOMEN: [Soft, nondistended], [nontender], [No rigidity or guarding] EXTREMITIES: Normal range of motion. 1+ pitting edema to the ankles SKIN: Warm, dry, no rash. NEURO: [No focal deficits]. Alert and oriented [x3.] PSYCH: [Normal mood and affect.] Course Vital Signs Vital signs: Vital Signs Temperature 36.4 C 01/17/25 18:49 Pulse Rate 53 L 01/17/25 18:49 Respiratory Rate 22 H 01/17/25 18:49 Blood Pressure 166/67 H 01/17/25 18:49 Pulse Oximetry 98 01/17/25 18:49 Oxygen Delivery Room Air 01/17/25 18:49 Temperature 36.6 C 01/18/25 04:00 Pulse Rate 56 L 01/18/25 04:00 Respiratory Rate 16 01/18/25 04:00 Blood Pressure 188/76 H 01/18/25 04:00 Pulse Oximetry 99 01/18/25 04:00 Oxygen Delivery Room Air 01/18/25 04:00 MDM - SOB/Dyspnea MDM Narrative Medical decision making narrative: 79-year-old female with history of recent 4 vessel CABG, coronary disease, hypertension, atrial fibrillation on Eliquis. She presents with worsening shortness of breath with exertion and now feeling short of breath even at rest. She states that she has difficulty breathing even with minor activities. Her flexographic printing press operator was aware this several weeks ago when was mild and being monitored outpatient. Her primary doctor started her on Lasix recently for some pitting edema. Patient still goes through cardiac rehab extensively. She has an upcoming pulmonology and cardiology appointment during this month. Patient states she feels short of breath in the examination room while she is resting, but denies any chest pain or exertional chest pain. She states her blood pressure has been elevated recently despite no changes to her medications or increase in salt intake. She has some mild pitting edema. Mostly clear breath sounds without any wheezing or prolonged expiratory phase but she is slightly tachypneic in the range of 20-26. Hypertensive with a blood pressure 180/72. Pulse is symmetric and irregular consistent with her history of atrial fibrillation. She is on Eliquis which lowers suspicion for thromboembolic disease but given her extensive cardiac history other potential process such as ACS, pneumonia, pneumothorax, pleural effusion, atelectasis, empyema, upper respiratory infection, COVID/flu. A broad workup was ordered including CBC, CMP, troponin, EKG, chest x-ray, BNP, CT angiography of the chest. Patient placed on pan washer and re-evaluated frequently. Laboratory studies showed no leukocytosis or anemia. She has an elevated BNP consistent with heart strain/failure. Electrolyte panel is unremarkable. Normal creatinine. Normal glucose, mildly elevated LFTs could be component of congestive hepatopathy. Negative troponin. X-ray shows left basilar atelectasis versus pneumonia. CT angiography shows no pulmonary embolism. Cardiomegaly with reflux into the IVC suggestive of right-sided heart failure consistent with patient's symptomatology and labs. She also has a left basilar atelectasis versus pneumonia. Minimal right pleural effusion. Patient's pan washer had some runs of bradycardia. Rhythm strips were obtained at this time that show atrial bigeminy. Patient has elevated blood pressure and low pulse which could be a compensatory mechanism if she is having non perfusing rhythms of atrial complexes in a background of sinus bradycardia. I discussed the case with the on-call work and family life consultant Dr. Pool was also patient's personal flexographic printing press operator. No urgent or emergent need for pacemaker placement as she is hemodynamically stable and mentating appropriately with no evidence of hypoperfusion at this time. Recommendations for aggressive diuresis given the heart failure findings and to avoid AV sandip blocking agents which currently patient is taking metoprolol. Patient re-evaluated frequently and was made aware of the plan of care at this time for diuretics, echocardiogram ordered, Cardiology evaluation inpatient admission to the hospital. Patient and family agreeable. She is hemodynamically stable at this time. Discussed the case with the hospitalist Service who accepted the patient to the IMU. Medical Records Attestation: I reviewed the patient's medical records. Lab Data Attestation: I reviewed the patient's lab results. 01/17/25 19:03 01/17/25 19:03 Labs: Lab Results 01/17/25 01/17/25 Range/Units 19:03 19:28 WBC 8.3 (4.5-10.0) K/mm3 RBC 4.67 (4.2-5.4) M/mm3 Hgb 12.6 (12.0-15.0) g/dL Hct 40.8 (37.0-47.0) % MCV 87.4 (80-100) fl MCH 27.0 (26-34) pg MCHC 30.9 L (32-36) g/dl RDW 24.5 H (11.5-14.5) % Plt Count 221 (150-375) k/mm3 MPV 10.7 H (7.4-10.4) fl Immature Gran % (Auto) 0.5 (0-0.5) % Neut % (Auto) 64.3 (45.5-73.1) % Lymph % (Auto) 21.1 (18.3-44.2) % Hendry % (Auto) 10.4 H (2.6-8.5) % Eos % (Auto) 2.6 (0-4.4) % Baso % (Auto) 1.1 (0.2-1.2) % Lymph # (Auto) 1.76 (0.9-3.2) K/mm3 Hendry # (Auto) 0.9 H (0.1-0.6) K/mm3 Eos # (Auto) 0.2 (0-0.3) K/mm3 Baso # (Auto) 0.1 (0.0-0.1) K/mm3 Abs Immat Gran (auto) 0.04 H (0.00-0.031) K/mm3 Absolute Neuts (auto) 5.4 (1.3-6.7) K/mm3 Absolute Nucleated RBC 0.000 (0.0-0.012) K/mm3 Band Neutrophils % Not Reportable Nucleated RBC % 0.0 (0.0-0.2) % Platelet Estimate Adequate (Adequate) % Immature Plt Fraction 2.5 (0.9-11.2) % Anisocytosis 1+ Ovalocytes 1+ Schistocytes None seen Sodium 139 (137-145) mmol/L Potassium 4.1 (3.4-5.0) mmol/L Chloride 109 H (98-107) mmol/L Carbon Dioxide 23 (22-30) mmol/L Anion Gap 7 (4-12) mmol/L BUN 23 H (7-17) mg/dL Creatinine 0.54 L (0.7-1.0) mg/dL Estim Creat Clear Calc 63 ml/min Estimated GFR > 60 (59 - ) Glucose 138 H (65-110) mg/dL Calcium 8.9 (8.4-10.2) mg/dL Total Bilirubin 0.6 (0.2-1.3) mg/dL AST 43 H (14-36) U/L ALT 42 H (6-35) U/L Alkaline Phosphatase 177 H (38-126) U/L Troponin I < 0.012 (0.000-0.034) ng/mL NT-Pro-B Natriuret Pep 4990 H (19.9-100) pg/mL Total Protein 6.6 (6.3-8.2) g/dL Albumin 3.7 (3.5-5.1) g/dL Influenza A (RT-PCR) Negative (Negative) Influenza B (RT-PCR) Negative (Negative) RSV (RT-PCR) Negative (Negative) SARS-CoV-2 RNA (RT-PCR) Negative (Negative) Imaging Data Attestation: I personally reviewed and interpreted this imaging study as follows: My impression: Impressions Chest X-Ray 01/17/25 20:19 IMPRESSION: Left basilar atelectasis versus pneumonia. Chest CTA 01/17/25 22:10 IMPRESSION: 1. No pulmonary embolism. 2. Cardiomegaly with reflux of contrast in the IVC and hepatic veins suggestive of right-sided failure. 3. 4. Left basilar atelectasis versus pneumonia. 5. Minimal right pleural effusion. 6. Cholelithiasis. ECG Data EKG #1: Attestation: I personally reviewed and interpreted this ECG as follows: ECG completion date: 01/17/25 ECG completion time: 18:40 Prior ECG tracings: available for review Interpretation: Sinus rhythm with atrial bigeminy/supraventricular bigeminy. QTC 438, QRS 76, rate of 60 beats per minute. No ST segment elevations, depressions. Compared to prior EKG atrial bigeminy appears new Critical Care Time Critical Care Time Critical Care Time: Yes Total Critical Care Time: 35 Discharge Plan Discharge Clinical Impression: Atrial bigeminy, Dyspnea due to congestive heart failure, History of four vessel coronary artery bypass graft, Right-sided heart failure, Bradycardia Patient Disposition: Still a Patient Condition: Stable Time of Disposition: 23:00
--- OUTSIDE RECORDS SUMMARY | 2025-01-17 19:32 | XMS_ITS | Clinical Summary ---
Author Organization [facility] [place] [address] Address [address] [place] [address] Care Team Providers Care Casting Room Operator Name Role Phone Meme Richardson DO Primary Care Provider [phone] Dusty Bernal MD Unavailable [phone] Brendan Pool MD Unavailable Miscellaneous, Not In File Unavailable Unava ilable Allergies Active Allergy Reactions Criticality Noted Date Comments Niacin Headache Low 07/10/2024 Crnijck-Okj-Uhr Reductase Inhibitors Other (See comments) Low 07/10/2024 Certain statins caused muscle weakness Medications cholecalciferol , vitamin D3, 1,000 unit tablet,chewable Indications:sup plement Take 1 tablet/chew tab by mouth turbine technician before breakfast Active atorvastatin (LIPITOR) 40 mg tabletIndicatio ns:hyperlipidem ia Take 1 tablet (40 mg total) by mouth daily 90 tablet 3 07/02/20 24 Active cetirizine 10 mg capsuleIndicati ons:Allergic Rhinitis Take 1 tablet by mouth turbine technician before breakfast Active fluticasone propionate (FLONASE) 50 [...] artery disease of n ative artery of [place] heart with stable angina pectoris 06/28/2024 Encounters Date Type Department Care Team Description 12/25/2024 Telephone [place] [address] [place] [phone] Brendan Pool MD 11/20/2024 1:00 PM CDT Ancillary Procedure [address] [phone] Shortness of breath 11/20/2024 Telephone [place] [address] [place] [phone] Trina Rodriguez NP 11/20/2024 Results Follow-Up [address] [phone] Trina Rodriguez NP CBC with auto differential, Comprehensive metabolic panel, Creatine kinase (CK), total 11/19/2024 9:00 AM CDT Office Visit [address] [phone] Trina Rodriguez NP Shortness of breath (Primary Dx); Fatigue, unspecified type; Coronary artery disease of [place] artery of [place] heart with stable angina pectoris; S/P CABG x 4; Status post mitral valve annuloplasty; Statin myopathy; Paroxysmal atrial fibrillation (HCC); Chronic anticoagulation 11/19/2024 Telephone [place] [address] [place] [phone] Brendan Pool MD 10/23/2024 11:00 AM CDT Home Care Visit [facility] [address] [place] [address] Swathi Pepper RN SN OASIS DISCHARGE from [...] disturbance STEMI (ST elevation myocardi al infarction) ([facility]) 06/10/2024 CAD (coronary artery disease) 06/10/2024 [...] materials from doctor or pharmacy Never 10/23/2024 [facility] Utilities Answer Date Recorded In the past 12 months has e electric, gas, oil, or water [employer] threatened to shut off services in your [...] often do you attend chur ch or lutheran services? More than 4 times per year 08/30/2024 Do you belong to any clubs o r organizations such as judaism groups, unions, fraternal or athletic groups, or [...] were you homeless or living in a detention (including now)? No 08/30/2024 Personal Safety Answer [...] history exists Medical Devices Implanted Type Area Family Service Aide Device Identifier Shelf Expiration Date Model / Serial / Lot [employer] Chente-Mcca rtcarolynn-Orozco Imr Etlogix 28mm 3d Reduced Curvature [id number] - [id number] - [id number] Implanted:Qty: 1 on 08/28/2024 by Dusty Bernal MD at Other - see comments N/A: Heart [employer] 08/30/2028 [id number] / [id number] / [employer] Plate Bone Low Profile 6 Hole O Shape Sternum Ti 115.104.06 - [id number] Implanted:Qty: 1 on 08/28/2024 by Dusty Bernal MD at Plate N/A: Sternum [employer] 115.104. 06 / / [employer] Plate Bone Low Profile 6 Hole H Shape Sternum Ti 115.102.06 - [id number] Implanted:Qty: 1 on 08/28/2024 by Dusty Bernal MD at Plate N/A: Sternum [employer] 115.102. 06 / / [employer] Plate Bone Low Profile 4 Hole Box Sternum Ti 115.103.04 - [id number] Implanted:Qty: 1 on 08/28/2024 by Dusty Bernal MD at Plate N/A: Sternum [employer] 115.103. 04 / / [employer] Screw Bone Slf Drl Full Thread Locking 3.5x18mm Ti 100.035.18 - [id number] Implanted:Qty: 2 on 08/28/2024 by Dusty Bernal MD at Screw N/A: Sternum [employer] 100.035. 18 / / [employer] Screw Bone Slf Drl Full Thread Locking 3.5x16mm Ti 100.035.16 - [id number] Implanted:Qty: 14 on 08/28/2024 by Dusty Bernal MD at Screw N/A: Sternum [employer] 100.035. 16 / / Procedures Procedure Name Priority Date/Time Associated Diagnosis Comments TRANSTHORACIC ECHO (TTE) COMPLETE W DOPPLER/CF WO CONTRAST Routine 11/20/2024 1:23 PM CDT Shortness of breath CREATINE KINASE (CK), TOTAL Routine 11/19/2024 11:10 AM CDT Coronary artery disease of [place] artery of [place] heart with stable angina pectoris COMPREHENSIVE METABOLIC PANEL Routine 11/19/2024 11:10 AM CDT Coronary artery disease of [place] artery of [place] heart with stable angina pectoris CBC WITH AUTO DIFFERENTIAL Routine 11/19/2024 11:10 AM CDT Coronary artery disease of [place] artery of [place] heart with stable angina pectoris HEMOGLOBIN A1C Routine 07/31/2024 9:09 AM METHODS EXAMINER Encounter for preadmission testing 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) LIPID PANEL Routine 06/10/2024 from Last 3 Months or Most Recently Relevant to Health Maintenance Results * TRANSTHORACIC ECHO (TTE) COMPLETE W DOPPLER/CF WO CONTRAST (11/20/2024 1:23 PM CDT) LV EF 60 % CONS SCIMAGE Anatomical Region Laterality Modality Ultrasound 11/20/2024 12:5 6 PM CDT Narrative 11/20/2024 3:31 PM CDT [facility] Medical Group Cardiology [address] [facility] [address], [place] [address] [address] [facility] [address] [place] [address] [address] P:[phone] P:[phone] Echocardiographic Report Patient Name: MICHELLE HENRY AN : 1945 Study Date: 11/20/2024 12:56:39 PM Gender: F Tech: Location: [place] Ref Provider: TRINA RODRIGUEZ Height(Cm): 155 BSA: [...] FINDINGS: Interpretation Site: Exam was interpreted at [facility]. Left Ventricle: Mild enlargement of left ventricle [...] regurgitation. Electronically Signed By: Ricardo Hawthorne MD, [facility] 11/20/2024 3:31:17 PM CDT Procedure Note Ricardo Hawthorne MD - 11/20/2024 [facility] Medical Group Cardiology [address] [facility] [address], [place] [address] [address] [facility] [address], [place] [address] P:[phone] P:[phone] Echocardiographic Report Patient Name: ALTHEA, MICHELLE, AN : 1945 Study Date: 11/20/2024 12:56:39 PM Gender: F Tech: Location: [facility] Provider: TRINA RODRIGUEZ Height(Cm): 155 BSA: [...] FINDINGS: Interpretation Site: Exam was interpreted at [facility]. Left Ventricle: Mild enlargement of left ventricle [...] regurgitation. Electronically Signed By: Ricardo Hawthorne MD, [facility] 11/20/2024 3:31:17 PM CDT Trina Rodriguez NP [...] AM CDT FASTING:YES FASTING: YES Trina Rodriguez BRANCH LOGISTICS SUPERVISOR LAB BLOOD ORDERABLES Randa l Result Performing Organization Address [facility] Co de Phone Number [facility] [address] [place] [address] * Creatine kinase (CK), total (11/19/2024 11:10 AM CDT) Pathologist [facility] CK 47 18 - 225 U/L [facility] Blood 11/19/2024 11:1 0 AM CDT 11/19/2024 11:10 AM CDT Narrative [facility] - 11/20/2024 5:43 AM CDT FASTING:YES FASTING: YES Trina Rodriguez BRANCH LOGISTICS SUPERVISOR LAB BLOOD ORDERABLES Randa l Result Performing Organization Address [facility] Co de Phone Number [facility] [address] [place] [address] * (ABNORMAL) Comprehensive metabolic panel (11/19/2024 11:10 AM CDT) Pathologist [facility] Glucose 98 65 - 99 mg/dL [facility] [...] AM CDT FASTING:YES FASTING: YES Trina Rodriguez BRANCH LOGISTICS SUPERVISOR LAB BLOOD ORDERABLES Randa l Result [facility] [address] [address] * Hemoglobin A1c (07/31/2024 9:09 AM METHODS EXAMINER) Hgb A1C 5.3 4.0 - 5.6 % Estimated Average Glucose 105 mg/dL [facility]IE Comment: The ADA recommends reporting an estimated Average Glucose (eAG) with all Hemoglobin A1c results using the equation derived from a study of 507 normal and diabetic adults. Minority populations were underrepresented and children were not included. (Diabetes Care 31:3670-9023, 2008). The eAG is not equivalent to a fasting glucose. Blood 07/31/2024 9:09 AM METHODS EXAMINER 07/31/2024 9:35 AM METHODS EXAMINER Fidelia Samuels BRANCH LOGISTICS SUPERVISOR LAB BLOOD ORDERABLES Final Res ult [facility] [address] [address] Department [place] [address] * (ABNORMAL) Lipid panel (06/10/2024) SCRIBED Cholesterol, [...] Advance Directives For more information, please contact: [phone] Documents on File Type Date Recorded Patient Cogeneration Technician Expl anation ADVANCE DIRECTIVE 09/11/2024 1:01 PM POWER OF PEST CONTROL CHEMICAL TECHNICIAN-MEDICAL * Full Code (Latest Code Status on File) Date Activated Date Inactivated Comments 08/28/2024 3:22 PM 09/10/2024 5:56 PM Care Teams Casting Room Operator Relationship Specialty Start Date End Date Meme Richardson DO [address] [facility] [address] [address] PCP - General Family Medicine 09/10/24 Dusty Bernal MD [id number] [place] [address] Surgeon Cardiothoracic Surgery 09/10/24 Brendan Pool MD [address] [facility] [address] [place] [address] Consulting Physician Cardiology 09/10/24 Miscellaneous, Not In File 09/10/24
--- OUTSIDE RECORDS SUMMARY | 2025-01-17 19:33 | XMS_ITS | Encounter Summary ---
Author Organization [facility] Healthcare Address [address] [place] [address] Care Team Providers Care Stuffed Casing Tier Name Role Phone Meme Richardson Primary Care Provider [phone] Ginioswaldo Mememo Mackenzie DO Primary Care Provider [phone]- [phone] Dusty Bernal MD Unavailable [phone] Brendan Pool MD Unavailable Miscellaneous, Not In File Unavailable Unava ilable Encounter Details Date Type Department Care Team (Late st Contact Info) Description 06/13/2024 Orders Only [facility] Health Information Management [address] [place] [address] Tere Schmitt MD [address] [place] [id number] Social History Tobacco Use Types Packs/Day [...] on filedocumented in this encounter Care Teams Stuffed Casing Tier Relationship Specialty Start Date End Date Meme Richardson DO [address] [facility] [address] [place] [address] PCP - General Family Medicine 06/10/24 09/09/24 Meme Richardson DO [address] [facility] [address] [address] [place] [address] PCP - General Family Medicine 09/10/24 Dusty Bernal MD [id number] [place] [address] Surgeon Cardiothoracic Surgery 09/10/24 Brendan Pool MD [address] [facility] [address] [place] [address] Consulting Physician Cardiology 09/10/24 Miscellaneous, Not In File 09/10/24 documented as of this encounter
--- OUTSIDE RECORDS SUMMARY | 2025-01-17 19:33 | XMS_ITS | Encounter Summary ---
Author Organization [facility] Healthcare Address [address] [place] [address] Care Team Providers Care Commercial Lines Assistant Name Role Phone Meme Richardson DO Primary Care Provider [phone]- [phone] Dusty Bernal MD Unavailable Brendan Pool MD Unavailable Miscellaneous, Not In File Unavailable Unava ilable Encounter Details Date Type Department Care Team (Late st Contact Info) Description 11/20/2024 Results Follow-Up [facility] Medical Group Cardiology [address] [place] [address] Trina Newman, AYAAN [address] [place] [address] CBC with auto differential, Comprehensive [...] materials from doctor or pharmacy Never 10/23/2024 [facility] Utilities Answer Date Recorded In the past 12 months has th e electric, gas, oil, or water [employer] threatened to shut off services in your [...] often do you attend chur ch or mosque services? More than 4 times per year 08/30/2024 Do you belong to any clubs o r organizations such as moravian groups, unions, fraternal or athletic groups, or [...] on filedocumented in this encounter Care Teams Commercial Lines Assistant Relationship Specialty Start Date End Date Meme Richardson DO [facility] [place] [address] [place] [address] PCP - General Family Medicine 09/10/24 Dusty Bernal MD [address] [facility] [id number] [place] [address] Surgeon Cardiothoracic Surgery 09/10/24 Brendan Pool MD [address] [address] Consulting Physician Cardiology 09/10/24 Miscellaneous, Not In File 09/10/24 documented as of this encounter
--- OUTSIDE RECORDS SUMMARY | 2025-01-17 19:33 | XMS_ITS | Referral Summary ---
Author Organization [place] [address] Address [address] [place] [address] Care Team Providers Care Clod Puller Name Role Phone Meme Richardson DO Primary Care Provider [phone]- [phone] Dusty Bernal MD Unavailable [phone] Brendan Pool MD Unavailable Miscellaneous, Not In File Unavailable Unava ilable Encounters Date Type Department Care Team Description 12/25/2024 Telephone [facility] Cardiology [address] [place] [address] [address] [place] [address] Brendan Pool MD 11/20/2024 Telephone [facility] Cardiology [address] [place] [address] [address] [place] [address] Trina Rodriguez NP 11/20/2024 Results Follow-Up [facility] Cardiology [address] [place] [address] [address] [place] [address] Trina Rodriguez NP CBC with auto differential, Comprehensive metabolic panel, Creatine kinase (CK), total 11/20/2024 1:00 PM CDT Ancillary Procedure [facility] Cardiology [address] [place] [address] [address] [place] [address] Shortness of breath 11/19/2024 Telephone [facility] Cardiology [address] [place] [address] [address] [place] [address] Brendan Pool MD 11/19/2024 9:00 AM CDT Office Visit [facility] Medical Group Cardiology [address] [place] [address] Trina Rodriguez NP Shortness of breath (Primary Dx); Fatigue, unspecified type; 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; S/P CABG x 4; Status post mitral valve annuloplasty; Statin myopathy; Paroxysmal atrial fibrillation (HCC); Chronic anticoagulation 10/23/2024 11:00 AM CDT Home Care Visit [facility] Home Health - [address] [place] [address] Swathi Pepper RN SN OASIS DISCHARGE from Last 3 Months Allergies Active Allergy Reactions Criticality Noted Date Comments Niacin Headache Low 07/10/2024 Bdggutk-Zoe-Qzh Reductase Inhibitors Other (See comments) Low 07/10/2024 Certain statins caused muscle weakness Medications cholecalciferol , vitamin D3, 1,000 unit tablet,chewable Indications:sup plement Take 1 tablet/chew tab by mouth hydraulic specialist before breakfast Active atorvastatin (LIPITOR) 40 mg tabletIndicatio ns:hyperlipidem ia Take 1 tablet (40 mg total) by mouth daily 90 tablet 3 07/02/20 24 Active cetirizine 10 mg capsuleIndicati ons:Allergic Rhinitis Take 1 tablet by mouth hydraulic specialist before breakfast Active fluticasone propionate (FLONASE) [...] artery disease of n ative artery of quechan heart with stable angina pectoris 06/28/2024 Social [...] materials from doctor or pharmacy Never 10/23/2024 [facility] Utilities Answer Date Recorded In [...] often do you attend chur ch or oriental orthodox services? More than 4 times per year 08/30/2024 Do you belong to any clubs o r organizations such as orthodox groups, unions, fraternal or athletic groups, [...] time in the past 12 m [facility], were you homeless or living in a [...] on file Medical Devices Implanted Type Area Regional Director Device Identifier Shelf Expiration Date Model / Serial / Lot [employer]on [employer] Chente-Mcca rtcarolynn-Orozco Imr Etlogix 28mm 3d Reduced Curvature [id number] - [id number] - [id number] Implanted:Qty: 1 on 08/28/2024 by Dusty Bernal MD at [facility] Other - see comments N/A: Heart [employer] 08/30/2028 [id number] / [id number] / [employer] Plate Bone Low Profile 6 Hole O Shape Sternum Ti 115.104.06 - [id number] Implanted:Qty: 1 on 08/28/2024 by Dusty Bernal MD at [facility] Plate N/A: Sternum [employer] 115.104. 06 / / [employer] Plate Bone Low Profile 6 Hole H Shape Sternum Ti 115.102.06 - [id number] Implanted:Qty: 1 on 08/28/2024 by Dusty Bernal MD at [facility] Plate N/A: Sternum [employer] 115.102. 06 / / [employer] Plate Bone Low Profile 4 Hole Box Sternum Ti 115.103.04 - [id number] Implanted:Qty: 1 on 08/28/2024 by Dusty Bernal MD at [facility] Plate N/A: Sternum [employer] 115.103. 04 / / [employer] Screw Bone Slf Drl Full Thread Locking 3.5x18mm Ti 100.035.18 - [id number] Implanted:Qty: 2 on 08/28/2024 by Dusty Bernal MD at [facility] Screw N/A: Sternum [employer] 100.035. 18 / / [employer] Screw Bone Slf Drl Full Thread Locking 3.5x16mm Ti 100.035.16 - [id number] Implanted:Qty: 14 on 08/28/2024 by Dusty Bernal MD at [facility] Screw N/A: Sternum [employer] 100.035. 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 HEMOGLOBIN A1C Routine 07/31/2024 9:09 AM BRUSH HEAD MAKER Encounter for preadmission testing 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) LIPID PANEL Routine 06/10/2024 from Last 3 Months or Most Recently Relevant to Health Maintenance Results * TRANSTHORACIC ECHO (TTE) COMPLETE W DOPPLER/CF WO CONTRAST (11/20/2024 1:23 PM CDT) LV EF 60 % CONS SCIMAGE Anatomical Region Laterality Modality Ultrasound 11/20/2024 12:5 6 PM CDT Narrative 11/20/2024 3:31 PM CDT [facility] Medical Group Cardiology [address] [facility] [address], [place] [address] [address] [facility] [address], [place] [address] P:[phone] P:[phone] Echocardiographic Report Patient Name: MICHELLE HENRY AN : 1945 Study Date: 11/20/2024 12:56:39 PM Gender: F Tech: Location: [place] Ref Provider: TRINA RODRIGUEZ Height(Cm): 155 BSA: 1.65 Weight(Kg): 63.5 Heart Rate: 53 BP: 134 / 64 Quality: Good Order Provider: TRINA RODRIGEUZ PROCEDURES: Echocardiographic Report: Transthoracic echocardiogram with complete [...] Site: Exam was interpreted at [facility]. Left Ventricle: Mild enlargement of left [...] regurgitation. Electronically Signed By: Ricardo Hawthorne MD, [facility] 11/20/2024 3:31:17 PM CDT Procedure Note Ricardo Hawthorne MD - 11/20/2024 [facility] Medical Group Cardiology [address] [facility] [address], [place] [address] [address] [facility] [address], [place] [address] P:[phone] P:[phone] Echocardiographic Report Patient Name: MICHLELE HENRY AN : 1945 Study Date: 11/20/2024 12:56:39 PM Gender: F Tech: Location: [facility] Provider: TRINA RODRIGUEZ Height(Cm): 155 BSA: [...] Site: Exam was interpreted at [facility]. Left Ventricle: Mild enlargement of left [...] AM CDT FASTING:YES FASTING: YES Trina Rodriguez BELLING MACHINE OPERATOR LAB BLOOD ORDERABLES Randa l Result Performing Organization Address [facility] Co de Phone Number [facility] [address] [place] [address] * Creatine kinase (CK), total (11/19/2024 11:10 AM CDT) [facility] CK 47 18 - 225 U/L [facility] Blood 11/19/2024 11:1 0 AM CDT 11/19/2024 11:10 AM CDT Narrative [facility] - 11/20/2024 5:43 AM CDT FASTING:YES FASTING: YES Trina Rodriguez BELLING MACHINE OPERATOR LAB BLOOD ORDERABLES Randa l Result Performing Organization Address City/[facility]/ZIP Co de Phone Number [facility] [address] [place] [address] * (ABNORMAL) Comprehensive metabolic panel (11/19/2024 11:10 [...] BLOOD ORDERABLES Randa l Result [facility] [address] [address] * Hemoglobin A1c (07/31/2024 9:09 AM BRUSH HEAD MAKER) Hgb A1C 5.3 4.0 - 5.6 % Estimated Average Glucose 105 mg/dL [facility] XIE Comment: The ADA recommends reporting an estimated Average Glucose (eAG) with all Hemoglobin A1c results using the equation derived from a study of 507 normal and diabetic adults. Minority populations were underrepresented and children were not included. (Diabetes Care 31:1549-0575, 2008). The eAG is not equivalent to a fasting glucose. Blood 07/31/2024 9:09 AM BRUSH HEAD MAKER 07/31/2024 9:35 AM BRUSH HEAD MAKER Fidelia Samuels BELLING MACHINE OPERATOR LAB BLOOD ORDERABLES Final Res ult [facility] [address] [address] Department [place] [address] * (ABNORMAL) Lipid panel (06/10/2024) SCRIBED Cholesterol, [...] Advance Directives For more information, please contact: [phone] Documents on File Type Date Recorded Patient Crts Expl anation ADVANCE DIRECTIVE 09/11/2024 1:01 PM POWER OF COMMODITY [employer]CHANT[employer] * Full Code (Latest Code Status on File) Date Activated Date Inactivated Comments 08/28/2024 3:22 PM 09/10/2024 5:56 PM Care Teams Clod Puller Relationship Specialty Start Date End Date Meme Richardson DO [address] [facility] [address] [address] PCP - General Family Medicine 09/10/24 Dusty Bernal MD [address] [facility] [id number] [place] [address] Surgeon Cardiothoracic Surgery 09/10/24 Brendan Pool MD [address] [address] Consulting Physician Cardiology 09/10/24 Miscellaneous, Not In File 09/10/24
[2025-01-17 19:41] LABS: Alanine Aminotransferase 42 U/L (6-35); Albumin Level 3.7 g/dL (3.5-5.1); Alkaline Phosphatase 177 U/L (38-126); Anion Gap 7 mmol/L (4-12); Anisocytosis 1+; Aspartate Amino Transferase 43 U/L (14-36); Bilirubin,Total 0.6 mg/dL (0.2-1.3); Blood Urea Nitrogen 23 mg/dL (7-17); Calcium 8.9 mg/dL (8.4-10.2); Carbon Dioxide 23 mmol/L (22-30); Chloride 109 mmol/L (98-107); Estimated CRCL calculation 63 ml/min; Estimated Glomerular Filt Rate > 60; Glucose 138 mg/dL (65-110); Ovalocytes 1+; Platelet Estimate Adequate (Adequate); Potassium 4.1 mmol/L (3.4-5.0); Schistocytes None Seen; Sodium 139 mmol/L (137-145); Total Protein 6.6 g/dL (6.3-8.2)
[2025-01-17 19:49] VITALS: PULSE 48
[2025-01-17 20:12] LABS: NT Pro B Type Natriuretic Pept 4990 pg/mL (19.9-100); Troponin I < 0.012 ng/mL (0.000-0.034)
[2025-01-17 20:16] LABS: Influenza A QL RT-PCR Negative (Negative); Influenza B QL RT-PCR Negative (Negative); RSV RNA, RT-PCR Negative (Negative); SARS-CoV-2 RNA PCR Negative (Negative)
[2025-01-17] MEDS: FUROSEMIDE INJ 40 MG/4 ML VIAL IV PUSH (23:08)
--- NOTE | 2025-01-17 23:40 | PM.IMHP ---
H&P: HPI History of Present Illness Date/Time: 01/17/25 23:40 Chief Complaint: Progressive dyspnea, CHF exacerbation with evidence of right heart failure Narrative: This is a 79-year-old female patient with a history of hypertension coronary artery disease metabolic syndrome hyperlipidemia who is status post 4 vessel CABG and valve repair in August 2024. Patient is admitted to the hospital with progressive dyspnea building over the last couple of weeks. Patient reports that she has been participating in cardiac rehab after her CABG and valve repair but states that she still battles persistent fatigue and does not feel like she is improving. She notes that she has been getting more dyspneic over the last couple of weeks. Patient was referred to the ER from urgent care where she went to seek treatment for nonproductive cough and shortness of breath. She was recently started on very low-dose furosemide 10 mg daily for lower extremity edema. She has been referred to pulmonology with an appointment next week and a repeat cardiology appointment the end of this month. Patient reports that the dyspnea is worse with exertion and that her cough is persistent and mostly dry. She states that she tried using an inhaler and nasal spray for the cough but neither of those have helped. She reports very occasional clear sputum. Patient denies any fever chills. She denies nausea or vomiting. In the ER patient received IV furosemide which has prompted her to urinate more frequently. Laboratory findings showed normal white blood cell count, normal H&H, normal platelets. Chemistry panel reveals mildly elevated glucose but this is not a fasting sample. Liver enzymes are also very mildly increased from prior likely post congestive. ProBNP elevated at 4990. Troponin normal. Chest x-ray shows left basilar atelectasis versus pneumonia. Because of significant coughing, ER started patient on IV Rocephin. CTA completed which showed cardiomegaly with reflux of contrast in the IVC and hepatic veins suggestive of right-sided heart failure, no pulmonary embolism, minimal right pleural effusion and again demonstrates left basilar atelectasis versus pneumonia. Patient's heart rate has been bradycardic and her blood pressure has been elevated. EKG in the ER shows bigeminal ectopic beats that were not fully perfusing on clinical examination. The elevated blood pressure is felt to be compensatory for the bradycardia. ER consulted Cardiology spoke to Dr. Pool who stated to diurese patient and admit for evaluation in the morning. Patient will be admitted for echocardiogram, IV diuresis and Cardiology consult. Review of Systems Review of Systems: All systems reviewed & are unremarkable except as noted in HPI and below PMFSH Past Medical History Medical History Irritation of external ear canal Left ear impacted cerumen Macular degeneration Hypertension Lipoma (~2012) Hepatitis C antibody test negative (~04/11/17) Cervical spondylosis Postmenopausal osteoporosis Metabolic syndrome X Overweight Mixed hyperlipidemia Surgical History Surgical History 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 History of esophagogastroduodenoscopy (EGD) (~05/14/09) History of tubal ligation (~1975) History of colonoscopy (~01/21/05) History of colonoscopy (~06/17/15) Family History Family History Father Family history of diabetes mellitus in first degree relative Acute myocardial infarction, Onset Age: 64 Family history of cardiovascular disease Diabetes mellitus Hypertension Mother Acute myocardial infarction, Onset Age: 66 Family history of cardiovascular disease Depression Hypertension Family history of malignant neoplasm of thyroid Sibling Acute myocardial infarction Social History Social History Social History: Caffeine- coffee Smoking status: Never smoker Second hand tobacco smoke exposure: No Alcohol intake: current Drinks per week: 2 Alcohol use details: Occasional Substance use: never Substance use type: does not use Do You Feel Safe in your Home?: Yes Lack of Transportation: No Lack of Food: Never True Current Housing: I Have Housing Concerned About Future Housing: No Difficulty Paying Gas/Electric Bills: No Difficulty Paying for Meds: No Currently Unemployed: No Education: Master's Degree or Higher Difficulty w/ Childcare or Family Care: No Occupation/Education: retired Gender identity (if verbalized by the patient): Female Spiritual care concerns: No Meds Home Medications and Allergies Home Medications ?Medication ?Instructions ?Recorded ?Confirmed ?Type atorvastatin 40 mg tablet 40 mg PO DAILY #30 tabs 06/14/24 01/18/25 Rx sennosides 8.6 mg-docusate sodium 1 tab PO HS #30 tabs 06/14/24 01/18/25 Rx 50 mg tablet (Senokot-S) acetaminophen 500 mg capsule 1,000 mg PO Q6H PRN fever or pain 09/27/24 01/18/25 History apixaban 5 mg tablet (Eliquis) 5 mg PO BID 09/27/24 01/18/25 History cholecalciferol (vitamin D3) 25 25 mcg PO DAILY 09/27/24 01/18/25 History mcg (1,000 unit) tablet clopidogrel 75 mg tablet (Plavix) 75 mg PO DAILY 09/27/24 01/18/25 History famotidine 20 mg tablet 20 mg PO DAILY 09/27/24 01/18/25 History fluticasone propionate 50 1 spray intranasal DAILY 09/27/24 01/18/25 History mcg/actuation nasal spray,suspension (Flonase Allergy Relief) losartan 50 mg tablet 25 mg PO DAILY 09/27/24 01/18/25 History sertraline 50 mg tablet 50 mg PO DAILY #90 tabs 10/22/24 01/18/25 Rx psyllium 1 tbsp PO DAILY 10/24/24 01/18/25 History simethicone 125 mg capsule (Gas 125 mg PO DAILY PRN abdominal 10/24/24 01/18/25 History Relief (simethicone)) distention vitamins A,C,B-rgiu-lmogvl 4,296 1 cap PO BID 10/24/24 01/18/25 History mcg-226 mg-90 mg capsule (PreserVision AREDS) cetirizine 10 mg capsule (All Day 10 mg PO DAILY 01/01/25 01/18/25 History Allergy (cetirizine)) furosemide 20 mg tablet 10 mg (1/2 x 20 mg) PO QAM #30 tabs 01/01/25 01/18/25 Rx inhalational spacing device #1 ea 01/01/25 01/18/25 Rx (BreatheRite MDI Spacer) metoprolol tartrate 25 mg tablet 12.5 mg PO BID 01/01/25 01/18/25 History potassium chloride 10 mEq 10 meq PO DAILY #30 tabs 01/01/25 01/18/25 Rx tablet,extended release (Klor-Con) Allergies Allergy/AdvReac Type Severity Reaction Status Date / Time rosuvastatin Allergy Intermediate myalgias, Verified 01/17/25 18:52 elevated CK simvastatin Allergy Intermediate myalgias, Verified 01/17/25 18:52 elevated CK inositol AdvReac Intermediate Flushing Verified 01/17/25 18:52 niacin AdvReac Intermediate significant Verified 01/17/25 18:52 flushing, will not tolerate Vital Signs Vital Signs - 24 hr 01/17/25 18:49 01/17/25 18:53 01/17/25 19:00 Temperature 36.4 C Pulse Rate 53 L 53 L Respiratory Rate 22 H Blood Pressure 166/67 H Pulse Oximetry 98 97 Oxygen Delivery Room Air Room Air 01/17/25 19:00 01/17/25 19:49 Temperature Pulse Rate 62 48 L Respiratory Rate 26 H Blood Pressure 182/72 H Pulse Oximetry 97 Oxygen Delivery Exam Narrative: GENERAL: Awake, alert, well-nourished, and in no acute distress. HEAD: Normocephalic, atraumatic. ENT:? Mucous membranes moist. CHEST: Mild scattered crackles with persistent dry non productive cough HEART: Bradycardic rate regular rhythm. Normal peripheral pulses. ABDOMEN: Soft, nontender, nondistended. EXTREMITIES: Normal range of motion. 1+ lower extremity edema noted SKIN: Warm dry normal color NEURO: Alert and oriented x3. PSYCH: Normal mood and affect H&P: Results Labs Labs: Short CBC 01/17/25 Range/Units 19:03 WBC 8.3 (4.5-10.0) K/mm3 Hgb 12.6 (12.0-15.0) g/dL Hct 40.8 (37.0-47.0) % Plt Count 221 (150-375) k/mm3 [facility] 01/17/25 19:03 Sodium 139 Potassium 4.1 Chloride 109 H Carbon Dioxide 23 BUN 23 H Creatinine 0.54 L Glucose 138 H Calcium 8.9 Cardiac Enzymes 01/17/25 Range/Units 19:03 Troponin I < 0.012 (0.000-0.034) ng/mL Liver Function 01/17/25 Range/Units 19:03 Total Bilirubin 0.6 (0.2-1.3) mg/dL AST 43 H (14-36) U/L ALT 42 H (6-35) U/L Alkaline Phosphatase 177 H (38-126) U/L Albumin 3.7 (3.5-5.1) g/dL Pulse Oximetry SpO2 results: 97-100% on room air Attestation: I personally reviewed and interpreted this pulse oximetry as follows: Interpretation: No need for supplemental oxygenation at this time Imaging Chest x-ray: Radiologist's impression: XR chest 2V Ordering provider: Neel Jackson History: 79 years Female with . sob . Comparison: December 27, 2024 FINDINGS: MEDIASTINUM: The cardiac silhouette is slightly enlarged. Congestive pao. Postoperative changes in the mediastinum. LUNGS: No effusions or pneumothorax. Opacification in the left lung base is seen suggestive of atelectasis pneumonia. OTHER: No free air under the diaphragm. IMPRESSION: Left basilar atelectasis versus pneumonia. Reviewed, dictated and finalized at location A. CT scan - chest: Radiologist's impression: CTA chest PE protocol Ordering provider: David Jim MD History: 79 years Female with . worsening lary, recent CABG . Comparison: December 29, 2024 Technique: CT angiogram chest was performed following timed intravenous injection of contrast. Thin slice axial images and reformatted coronal images were obtained. Three dimensional reformatted images of the chest were also obtained using a [employer] workstation. . Automated exposure control and iterative reconstruction technique were employed. The dose-length product was 246.02 mGy-cm. 100 mL Omnipaque 350 was given IV. Findings: PULMONARY ARTERIES: No pulmonary embolus. VISUALIZED THORACIC INLET: Normal. MEDIASTINUM: Aorta/coronary arteries: Mild atheromatous disease. Heart/other: The heart is moderately enlarged. Reflux of the contrast into the hepatic veins which is suggestive of right-sided failure. Lymph nodes: No mediastinal or hilar adenopathy. Postoperative changes in the mediastinum. LUNGS: Minimal right pleural effusion. Left basilar atelectasis versus pneumonia. No pulmonary nodules or masses. No pneumothorax. VISUALIZED UPPER ABDOMEN: Cholelithiasis. Otherwise, the visualized upper abdomen is normal. MUSCULOSKELETAL: Soft tissues: The superficial soft tissues are normal. Bones: Age appropriate degenerative changes of the spine. Fracture in the left fifth, sixth and seventh ribs. IMPRESSION: 1. No pulmonary embolism. 2. Cardiomegaly with reflux of contrast in the IVC and hepatic veins suggestive of right-sided failure. 3. 4. Left basilar atelectasis versus pneumonia. 5. Minimal right pleural effusion. 6. Cholelithiasis. Reviewed, dictated and finalized at location A. Assessment and Plan Assessment and plan (1) Right-sided heart failure: Code(s): I50.810 - Right heart failure, unspecified Status: Acute Assessment and Plan: -Progressive dyspnea over several weeks s/p CABG Aug 2024 -Elevated BNP -Persistent cough and bilateral lower extremity edema -CT imaging finding of reflux of contrast into IVC concerning for right sided heart failure -Echocardiogram ordered -Cardiology consulted by ER, stated to provide diuresis and admit to be seen in the morning -Bradycardia on cardiac monitoring and EKG showed bigeminal ectopic beats that are not fully perfusing -Blood pressure elevated, likely multifactorial including compensatory for decreased HR -Stop metoprolol pending Cardiology evaluation (2) Dyspnea due to congestive heart failure: Code(s): I50.9 - Heart failure, unspecified Status: Acute Assessment and Plan: See above (3) Atrial fibrillation: Code(s): I48.91 - Unspecified atrial fibrillation Status: Acute Assessment and Plan: -History of paroxysmal atrial fibrillation, on Eliquis at baseline (4) Bradycardia: Code(s): R00.1 - Bradycardia, unspecified Status: Acute Assessment and Plan: -See above (5) Atrial bigeminy: Code(s): I49.8 - Other specified cardiac arrhythmias Status: Acute Assessment and Plan: -See above (6) Mixed hyperlipidemia: Code(s): E78.2 - Mixed hyperlipidemia Status: Acute Assessment and Plan: -Chronic, continue home medications (7) Essential (primary) hypertension: Code(s): I10 - Essential (primary) hypertension Status: Acute Assessment and Plan: -Blood pressure elevated but do not want to lower as potentially compensatory for bradycardia -Treat if above 220/120 or per Cardiology parameters after evaluation (8) Metabolic syndrome X: Code(s): E88.81 - Metabolic syndrome and other insulin resistance Status: Acute Assessment and Plan: -Previous A1c level around 6 -Add to am labs -Appears to have lost weight since heart surgery Quality VTE Prophylaxis VTE prophylaxis: pharmacologic ordered (Eliquis) Total time spent on this patient 120 minutes Hospitalist MIPS Advance Care Plan I have confirmed that the patient's Advanced Care Plan is present, code status is documented, or surrogate decision maker is listed in patient medical record.: Yes Medication Reconciliation I have utilized all available resources to obtain, update and review the patients current medications (includes all prescriptions, OTC, herbals, cannabis, and nutritional supplements).: Yes
[2025-01-17 23:44] VITALS: BP 165/70; PULSE 51; RESP 17; O2SAT 99
[2025-01-17 23:51] VITALS: BMI 24.7
[2025-01-18] VITALS (9 sets, daily range): BP systolic 151–188; BP diastolic 58–84; PULSE 56–79; RESP 16–20; TEMP 36.4–36.9; O2SAT 96–100; BMI 24.7
--- NOTE | 2025-01-18 00:48 | ADMGEN ---
This patient, Michelle Henry, was admitted to IMU Room 206-01 at 2350. Patient/family oriented to hospital policies and general routines including ID bracelet, bed and alarms, visiting hours, pain management, procedures, bathroom and other care routines, personal items, smoking policy, room service/diet, and visiting hours. Information on how to activate the Rapid Response Team has been discussed. Patient/Family are encouraged to report perceived risks to care and to ask questions if they do not understand what they are told or what they should do.
[2025-01-18 04:55] LABS: Basophils Absolute Auto 0.1 K/mm3 (0.0-0.1); Basophils Percent Auto 0.9 % (0.2-1.2); Eosinophils Absolute Auto 0.2 K/mm3 (0-0.3); Hematocrit 42.4 % (37.0-47.0); Immature Granulocyte Absolute 0.04 K/mm3 (0.00-0.031); Immature Granulocyte Percent A 0.4 % (0-0.5); Lymphocytes Absolute Auto 1.72 K/mm3 (0.9-3.2); Lymphocytes Percent Auto 18.3 % (18.3-44.2); Mean Corpuscular HGB Conc 30.7 g/dl (32-36); Mean Corpuscular Hemoglobin 26.9 pg (26-34); Mean Corpuscular Volume 87.6 fl (80-100); Mean Platelet Volume 11.4 fl (7.4-10.4); Monocytes Absolute Auto 0.9 K/mm3 (0.1-0.6); Neutrophils Absolute Auto 6.4 K/mm3 (1.3-6.7); Neutrophils Percent Auto 68.4 % (45.5-73.1); Platelet Count Result 251 k/mm3 (150-375); Red Blood Count 4.84 M/mm3 (4.2-5.4); Red Cell Distribution Width 24.3 % (11.5-14.5); White Blood Count 9.4 K/mm3 (4.5-10.0)
[2025-01-18 05:21] LABS: Alanine Aminotransferase 42 U/L (6-35); Albumin Level 3.8 g/dL (3.5-5.1); Alkaline Phosphatase 197 U/L (38-126); Anion Gap 8 mmol/L (4-12); Aspartate Amino Transferase 40 U/L (14-36); Bilirubin,Total 0.8 mg/dL (0.2-1.3); Blood Urea Nitrogen 19 mg/dL (7-17); Calcium 8.8 mg/dL (8.4-10.2); Carbon Dioxide 27 mmol/L (22-30); Chloride 105 mmol/L (98-107); Estimated CRCL calculation 53 ml/min; Estimated Glomerular Filt Rate > 60; Glucose 103 mg/dL (65-110); Potassium 3.5 mmol/L (3.4-5.0); Sodium 140 mmol/L (137-145); Total Protein 6.6 g/dL (6.3-8.2)
[2025-01-18 05:31] LABS: Band Neutrophils Percent 0 % (0-6)
[2025-01-18 05:32] LABS: Anisocytosis 1+; Hypochromasia 1+; Ovalocytes 1+; Platelet Estimate Adequate (Adequate); Schistocytes None Seen
--- NOTE | 2025-01-18 07:32 | P.CONCA_ITS ---
Assessment and Plan Assessment and plan (1) S/P coronary artery bypass graft x 4: Code(s): Z95.1 - Presence of aortocoronary bypass graft Status: Acute Assessment and Plan: Stable. No anginal symptoms. Continue with statin, plavix. (2) Dyspnea due to congestive heart failure: Code(s): I50.9 - Heart failure, unspecified Status: Acute Assessment and Plan: Acute on chronic diastolic HF. Significantly improved with a couple of doses of IV lasix. * Would discharge her on 40mg lasix daily * BMP in 2 weeks as outpatient * CHF counseling * Follow up in our office in 1 month * Had echo in November in our office, no need to repeat one here * OK for discharge today from cardiac standpoint. History of Present Illness History of Present Illness Consult date/time: 01/18/25 07:32 Requesting physician: David Jim MD Consult reason: congestive heart failure Reason For Visit: Atrial bigeminy, congestive heart failure, Narrative: Michelle Henry is a 79 year old female with coronary artery disease (s/p 4 vessel CABG August 2024), mitral valve repair, post op atrial fibrillation. She comes to the hospital with progressive dyspnea. She also has complaints of bilateral lower extremity edema, orthopnea and persistent dry cough. She denies any chest pain, palpitations. She has been given IV furosemide and at this point has no edema and her breathing has improved significantly. Review of Systems 2 Review of Systems: All systems reviewed & are unremarkable except as noted in HPI and below PMFSH Past Medical History Medical History Irritation of external ear canal Left ear impacted cerumen Macular degeneration Hypertension Lipoma (~2012) Hepatitis C antibody test negative (~04/11/17) Cervical spondylosis Postmenopausal osteoporosis Metabolic syndrome X Overweight Mixed hyperlipidemia Surgical History Surgical History 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 History of esophagogastroduodenoscopy (EGD) (~05/14/09) History of tubal ligation (~1975) History of colonoscopy (~01/21/05) History of colonoscopy (~06/17/15) Family History Family History Father Family history of diabetes mellitus in first degree relative Acute myocardial infarction, Onset Age: 64 Family history of cardiovascular disease Diabetes mellitus Hypertension Mother Acute myocardial infarction, Onset Age: 66 Family history of cardiovascular disease Depression Hypertension Family history of malignant neoplasm of thyroid Sibling Acute myocardial infarction Social History Social History Social History: Caffeine- coffee Smoking status: Never smoker Second hand tobacco smoke exposure: No Alcohol intake: current Drinks per week: 2 Alcohol use details: Occasional Substance use: never Substance use type: does not use Do You Feel Safe in your Home?: Yes Lack of Transportation: No Lack of Food: Never True Current Housing: I Have Housing Concerned About Future Housing: No Difficulty Paying Gas/Electric Bills: No Difficulty Paying for Meds: No Currently Unemployed: No Education: Master's Degree or Higher Difficulty w/ Childcare or Family Care: No Occupation/Education: retired Gender identity (if verbalized by the patient): Female Spiritual care concerns: No Meds Home Medications and Allergies Home Medications ?Medication ?Instructions ?Recorded ?Confirmed ?Type atorvastatin 40 mg tablet 40 mg PO DAILY #30 tabs 06/14/24 01/18/25 Rx sennosides 8.6 mg-docusate sodium 1 tab PO HS #30 tabs 06/14/24 01/18/25 Rx 50 mg tablet (Senokot-S) acetaminophen 500 mg capsule 1,000 mg PO Q6H PRN fever or pain 09/27/24 01/18/25 History apixaban 5 mg tablet (Eliquis) 5 mg PO BID 09/27/24 01/18/25 History cholecalciferol (vitamin D3) 25 25 mcg PO DAILY 09/27/24 01/18/25 History mcg (1,000 unit) tablet clopidogrel 75 mg tablet (Plavix) 75 mg PO DAILY 09/27/24 01/18/25 History famotidine 20 mg tablet 20 mg PO DAILY 09/27/24 01/18/25 History fluticasone propionate 50 1 spray intranasal DAILY 09/27/24 01/18/25 History mcg/actuation nasal spray,suspension (Flonase Allergy Relief) losartan 50 mg tablet 25 mg PO DAILY 09/27/24 01/18/25 History sertraline 50 mg tablet 50 mg PO DAILY #90 tabs 10/22/24 01/18/25 Rx psyllium 1 tbsp PO DAILY 10/24/24 01/18/25 History simethicone 125 mg capsule (Gas 125 mg PO DAILY PRN abdominal 10/24/24 01/18/25 History Relief (simethicone)) distention vitamins A,C,A-yvjm-gxodfu 4,296 1 cap PO BID 10/24/24 01/18/25 History mcg-226 mg-90 mg capsule (PreserVision AREDS) cetirizine 10 mg capsule (All Day 10 mg PO DAILY 01/01/25 01/18/25 History Allergy (cetirizine)) furosemide 20 mg tablet 10 mg (1/2 x 20 mg) PO QAM #30 tabs 01/01/25 01/18/25 Rx inhalational spacing device #1 ea 01/01/25 01/18/25 Rx (BreatheRite MDI Spacer) metoprolol tartrate 25 mg tablet 12.5 mg PO BID 01/01/25 01/18/25 History potassium chloride 10 mEq 10 meq PO DAILY #30 tabs 01/01/25 01/18/25 Rx tablet,extended release (Klor-Con) Allergies Allergy/AdvReac Type Severity Reaction Status Date / Time rosuvastatin Allergy Intermediate myalgias, Verified 01/17/25 18:52 elevated CK simvastatin Allergy Intermediate myalgias, Verified 01/17/25 18:52 elevated CK inositol AdvReac Intermediate Flushing Verified 01/17/25 18:52 niacin AdvReac Intermediate significant Verified 01/17/25 18:52 flushing, will not tolerate Vital Signs Vital Signs - 24 hr 01/17/25 18:49 01/17/25 18:53 01/17/25 19:00 Temperature 36.4 C Pulse Rate 53 L 53 L Respiratory Rate 22 H Blood Pressure 166/67 H Pulse Oximetry 98 97 Oxygen Delivery Room Air Room Air 01/17/25 19:00 01/17/25 19:49 01/17/25 23:44 Temperature Pulse Rate 62 48 L 51 L Respiratory Rate 26 H 17 Blood Pressure 182/72 H 165/70 H Pulse Oximetry 97 99 Oxygen Delivery 01/18/25 00:00 01/18/25 00:00 01/18/25 00:00 Temperature 36.4 C Pulse Rate 69 68 Respiratory Rate 20 Blood Pressure 180/84 H Pulse Oximetry 100 Oxygen Delivery Room Air 01/18/25 02:00 01/18/25 04:00 01/18/25 04:00 Temperature 36.6 C Pulse Rate 58 L 56 L Respiratory Rate 16 Blood Pressure 188/76 H Pulse Oximetry 99 Oxygen Delivery Room Air 01/18/25 04:00 Temperature Pulse Rate 56 L Respiratory Rate Blood Pressure Pulse Oximetry Oxygen Delivery Exam 2 Const: General: comfortable, no acute distress, alert and awake O rientation/consciousness: patient oriented x3 HENMT: Head: normal to inspection Eyes: General: appearance normal, both eyes and all related structures P upils: Equal, round and reactive pupils present Neck: Neck: normal visual inspection, supple and no JVD Carotids: normal carotid upstroke Resp: Effort & Inspection: normal respiratory effort Auscultation: d iminished lung sounds on the left in the lower lung aguila Cardio: Rate: regular rate Rhythm: regular rhythm Heart sounds: S1 normal heart sound present, S2 normal heart sound present and no murmurs GI: Auscultation: normal bowel sounds Skin: General skin exam: normal color Neuro: General: patient oriented x3 Cranial nerves: Yes Equal, round and reactive pupils present Extrem: General: normal to inspection Other: No edema Psych: Appearance: grossly normal Mental Status: mental status grossly normal Results Labs and Meds 01/18/25 04:26 01/18/25 04:26 Lab results: Cardiac Enzymes 01/17/25 01/18/25 Range/Units 19:03 04:26 AST 43 H 40 H (14-36) U/L Troponin I < 0.012 (0.000-0.034) ng/mL CBC 01/17/25 01/18/25 Range/Units 19:03 04:26 WBC 8.3 9.4 (4.5-10.0) K/mm3 RBC 4.67 4.84 (4.2-5.4) M/mm3 Hgb 12.6 13.0 (12.0-15.0) g/dL Hct 40.8 42.4 (37.0-47.0) % Plt Count 221 251 (150-375) k/mm3 Lymph # (Auto) 1.76 1.72 (0.9-3.2) K/mm3 [place] # (Auto) 0.9 H 0.9 H (0.1-0.6) K/mm3 Eos # (Auto) 0.2 0.2 (0-0.3) K/mm3 Baso # (Auto) 0.1 0.1 (0.0-0.1) K/mm3 Comprehensive Metabolic Panel 01/17/25 01/18/25 Range/Units 19:03 04:26 Sodium 139 140 (137-145) mmol/L Potassium 4.1 3.5 (3.4-5.0) mmol/L Chloride 109 H 105 (98-107) mmol/L Carbon Dioxide 23 27 (22-30) mmol/L BUN 23 H 19 H (7-17) mg/dL Creatinine 0.54 L 0.57 L (0.7-1.0) mg/dL Glucose 138 H 103 (65-110) mg/dL Calcium 8.9 8.8 (8.4-10.2) mg/dL AST 43 H 40 H (14-36) U/L ALT 42 H 42 H (6-35) U/L Alkaline Phosphatase 177 H 197 H (38-126) U/L Total Protein 6.6 6.6 (6.3-8.2) g/dL Albumin 3.7 3.8 (3.5-5.1) g/dL Intake and Output 01/17/25 01/17/25 01/18/25 15:59 23:59 07:59 Intake Total 50 3 Output Total 1000 Balance 50 -997 Intake: IV 50 cefTRIAXone 1 GM/NS 50 ML 1 gm 50 In 50 ml @ 100 mls/hr IVPB ONCE STA Rx#:[id number] Oral 3 Output: Urine 1000 Other: # Unmeasured Voids 2 Patient Weight 01/18/25 23:59 Weight 59.2 kg
--- NOTE | 2025-01-18 08:16 | PM.IMPN ---
Progress Note: A&P Assessment and Plan (1) Right-sided heart failure: Code(s): I50.810 - Right heart failure, unspecified Status: Acute Assessment and Plan: Progressive dyspnea over several weeks s/p CABG Aug 2024 Elevated BNP Persistent cough and bilateral lower extremity edema CT imaging finding of reflux of contrast into IVC concerning for right sided heart failure Echocardiogram ordered Cardiology consulted by ER, stated to provide diuresis and admit to be seen in the morning Bradycardia on cardiac monitoring and EKG showed bigeminal ectopic beats that are not fully perfusing Blood pressure elevated, likely multifactorial including compensatory for decreased HR Stop metoprolol pending Cardiology evaluation (2) Dyspnea due to congestive heart failure: Code(s): I50.9 - Heart failure, unspecified Status: Acute Assessment and Plan: See above (3) Atrial fibrillation: Code(s): I48.91 - Unspecified atrial fibrillation Status: Acute Assessment and Plan: History of paroxysmal atrial fibrillation, on Eliquis at baseline (4) Bradycardia: Code(s): R00.1 - Bradycardia, unspecified Status: Acute Assessment and Plan: See above (5) Atrial bigeminy: Code(s): I49.8 - Other specified cardiac arrhythmias Status: Acute Assessment and Plan: See above (6) Mixed hyperlipidemia: Code(s): E78.2 - Mixed hyperlipidemia Status: Acute Assessment and Plan: Chronic, continue home medications (7) Essential (primary) hypertension: Code(s): I10 - Essential (primary) hypertension Status: Acute Assessment and Plan: Blood pressure elevated but do not want to lower as potentially compensatory for bradycardia Treat if above 220/120 or per Cardiology parameters after evaluation (8) Metabolic syndrome X: Code(s): E88.81 - Metabolic syndrome and other insulin resistance Status: Acute Assessment and Plan: Previous A1c level around 6 Add to am labs Appears to have lost weight since heart surgery Subjective Date/time seen: 01/18/25 08:16 Interval history: 79-year-old female patient with a history of hypertension coronary artery disease metabolic syndrome hyperlipidemia who is status post 4 vessel CABG and valve repair in August 2024 who presents with progressive dyspnea building over the last couple of weeks. 01/18/2025 Review of Systems Review of Systems: All systems reviewed & are unremarkable except as noted in HPI and below Exam Narrative: GENERAL: Awake, alert, well-nourished, and in no acute distress. HEAD: Normocephalic, atraumatic. ENT:? Mucous membranes moist. CHEST: Mild scattered crackles with persistent dry non productive cough HEART: Bradycardic rate regular rhythm. Normal peripheral pulses. ABDOMEN: Soft, nontender, nondistended. EXTREMITIES: Normal range of motion. 1+ lower extremity edema noted SKIN: Warm dry normal color NEURO: Alert and oriented x3. PSYCH: Normal mood and affect Objective Data Vital Signs Vital Signs: Vital Signs - 24 hr 01/17/25 18:49 01/17/25 18:53 01/17/25 19:00 Temperature 97.6 F Pulse Rate 53 L 53 L Respiratory Rate 22 H Blood Pressure 166/67 H Pulse Oximetry 98 97 Oxygen Delivery Room Air Room Air 01/17/25 19:00 01/17/25 19:49 01/17/25 23:44 Temperature Pulse Rate 62 48 L 51 L Respiratory Rate 26 H 17 Blood Pressure 182/72 H 165/70 H Pulse Oximetry 97 99 Oxygen Delivery 01/18/25 00:00 01/18/25 00:00 01/18/25 00:00 Temperature 97.6 F Pulse Rate 69 68 Respiratory Rate 20 Blood Pressure 180/84 H Pulse Oximetry 100 Oxygen Delivery Room Air 01/18/25 02:00 01/18/25 04:00 01/18/25 04:00 Temperature 97.8 F Pulse Rate 58 L 56 L Respiratory Rate 16 Blood Pressure 188/76 H Pulse Oximetry 99 Oxygen Delivery Room Air 01/18/25 04:00 01/18/25 07:42 01/18/25 07:55 Temperature 98.3 F Pulse Rate 56 L 57 L Respiratory Rate 16 Blood Pressure 164/58 H Pulse Oximetry 96 97 Oxygen Delivery Room Air Intake/Output Intake/Output: Intake & Output 01/15/25 01/16/25 01/17/25 01/18/25 23:59 23:59 23:59 23:59 Intake Total 50 3 Output Total 1000 Balance 50 -997 Meds/Results Medications: Active Medications Generic Name Dose Route Start Last Admin Trade Name Freq PRN Reason Stop Dose Admin Acetaminophen 1,000 mg 01/18/25 03:55 Acetaminophen 500 Mg Tablet PO Q6H PRN fever or pain Apixaban 5 mg 01/18/25 09:00 Apixaban 5 Mg Tablet PO Q12HR WADE Atorvastatin Calcium 40 mg 01/18/25 09:00 Atorvastatin 40 Mg Tablet PO DAILY [facility] Clopidogrel Bisulfate 75 mg 01/18/25 09:00 Clopidogrel Bisulfate 75 Mg Tablet PO DAILY [facility] Famotidine 20 mg 01/18/25 09:00 Famotidine 20 Mg Tablet PO DAILY [facility] Fluticasone Propionate 1 spray 01/18/25 09:00 Fluticasone Propionate 0.05% Na Spr 16 Gm Btl (*Bkc) NASAL DAILY [facility] Furosemide 40 mg 01/18/25 09:00 Furosemide Inj 40 Mg/4 Ml Vial IV PUSH BID [facility] Ceftriaxone Sodium 1 gm in 50 mls @ 100 mls/hr 01/18/25 23:00 Rocephin 1 Gm/Ns 50 Ml IVPB Q24H [facility] Loratadine 10 mg 01/18/25 09:00 Loratadine 10 Mg Tablet PO QAM [facility] Losartan Potassium 25 mg 01/18/25 09:00 Losartan Potassium 25 Mg Tablet PO DAILY [facility] Perflutren Lipid Microsphere 0 ml 01/18/25 08:15 Perflutren Lipid Microspheres 1.5 Ml Vial Diluted To 10 Ml Total Volume IV PUSH 01/21/25 08:15 ONCE PRN adequate visualization Protocol Potassium Chloride 10 meq 01/18/25 09:00 Potassium Chloride 10 Meq Er Tablet PO DAILY [facility] Psyllium Hydrophilic Mucilloid 1 packet 01/18/25 09:00 Psyllium Powder Packet PO DAILY [facility] Senna/Docusate Sodium 1 tab 01/18/25 21:00 Senna/Docusate Sodium Tablet PO HS [facility] Sertraline HCl 50 mg 01/18/25 09:00 Sertraline Hcl 50 Mg Tablet PO DAILY [facility] Simethicone 125 mg 01/18/25 03:55 Simethicone 125 Mg Chew Tab PO QID PRN abdominal distention Vitamin D 25 mcg 01/18/25 09:00 Cholecalciferol (Vitamin D3) 25 Mcg (1,000 Units) Tablet PO DAILY [facility] Radiology Results: ITS Impressions Chest X-Ray 01/17/25 20:19 IMPRESSION: Left basilar atelectasis versus pneumonia. Chest CTA 01/17/25 22:10 IMPRESSION: 1. No pulmonary embolism. 2. Cardiomegaly with reflux of contrast in the IVC and hepatic veins suggestive of right-sided failure. 3. 4. Left basilar atelectasis versus pneumonia. 5. Minimal right pleural effusion. 6. Cholelithiasis. Labs Labs: Laboratory Results - last 24 hr 01/17/25 01/17/25 01/18/25 19:03 19:28 04:26 WBC 8.3 9.4 RBC 4.67 4.84 Hgb 12.6 13.0 Hct 40.8 42.4 MCV 87.4 87.6 MCH 27.0 26.9 MCHC 30.9 L 30.7 L RDW 24.5 H 24.3 H Plt Count 221 251 MPV 10.7 H 11.4 H Immature Gran % (Auto) 0.5 0.4 Neut % (Auto) 64.3 68.4 Lymph % (Auto) 21.1 18.3 [place] % (Auto) 10.4 H 10.0 H Eos % (Auto) 2.6 2.0 Baso % (Auto) 1.1 0.9 Lymph # (Auto) 1.76 1.72 [place] # (Auto) 0.9 H 0.9 H Eos # (Auto) 0.2 0.2 Baso # (Auto) 0.1 0.1 Abs Immat Gran (auto) 0.04 H 0.04 H Absolute Neuts (auto) 5.4 6.4 Absolute Nucleated RBC 0.000 0.000 Band Neutrophils % Not Reportable 0 Nucleated RBC % 0.0 0.0 Platelet Estimate Adequate Adequate % Immature Plt Fraction 2.5 Hypochromasia 1+ Anisocytosis 1+ 1+ Ovalocytes 1+ 1+ Schistocytes None seen None seen Sodium 139 140 Potassium 4.1 3.5 Chloride 109 H 105 Carbon Dioxide 23 27 Anion Gap 7 8 BUN 23 H 19 H Creatinine 0.54 L 0.57 L Estim Creat Clear Calc 63 53 Estimated GFR > 60 > 60 Glucose 138 H 103 Calcium 8.9 8.8 Magnesium 2.0 Total Bilirubin 0.6 0.8 AST 43 H 40 H ALT 42 H 42 H Alkaline Phosphatase 177 H 197 H Troponin I < 0.012 NT-Pro-B Natriuret Pep 4990 H Total Protein 6.6 6.6 Albumin 3.7 3.8 Influenza A (RT-PCR) Negative Influenza B (RT-PCR) Negative RSV (RT-PCR) Negative SARS-CoV-2 RNA (RT-PCR) Negative Quality VTE Prophylaxis VTE prophylaxis: pharmacologic ordered (Eliquis)
[2025-01-18 09:02] LABS: Hemoglobin A1C 5.7 % (<5.7)
[2025-01-18] MEDS: LOSARTAN POTASSIUM 25 MG TABLET PO (10:02)
[2025-01-18] MEDS: ATORVASTATIN 40 MG TABLET PO (10:02)
[2025-01-18] MEDS: CHOLECALCIFEROL (VITAMIN D3) 25 MCG (1,000 UNITS) TABLET PO (10:02)
[2025-01-18] MEDS: POTASSIUM CHLORIDE 10 MEQ ER TABLET PO (10:03)
[2025-01-18] MEDS: APIXABAN 5 MG TABLET PO (10:04)
[2025-01-18] MEDS: FAMOTIDINE 20 MG TABLET PO (10:04)
[2025-01-18] MEDS: CLOPIDOGREL BISULFATE 75 MG TABLET PO (10:04)
[2025-01-18] MEDS: LORATADINE 10 MG TABLET PO (10:04)
[2025-01-18] MEDS: PSYLLIUM POWDER PACKET 1 PACKET PO (10:05)
[2025-01-18] MEDS: FUROSEMIDE INJ 40 MG/4 ML VIAL IV PUSH (10:05)
--- NOTE | 2025-01-18 12:09 | P.DS_ITS ---
DS: Admitting Diagnosis Discharge Date 01/18/2025 Admitting Diagnosis Right-sided heart failure, dyspnea DS: Discharge Diagnosis Discharge Diagnosis (1) Right-sided heart failure: Code(s): I50.810 - Right heart failure, unspecified Status: Acute (2) Dyspnea due to congestive heart failure: Code(s): I50.9 - Heart failure, unspecified Status: Acute (3) Atrial fibrillation: Code(s): I48.91 - Unspecified atrial fibrillation Status: Acute (4) Bradycardia: Code(s): R00.1 - Bradycardia, unspecified Status: Acute (5) Atrial bigeminy: Code(s): I49.8 - Other specified cardiac arrhythmias Status: Acute (6) Mixed hyperlipidemia: Code(s): E78.2 - Mixed hyperlipidemia Status: Acute (7) Essential (primary) hypertension: Code(s): I10 - Essential (primary) hypertension Status: Acute (8) Metabolic syndrome X: Code(s): E88.81 - Metabolic syndrome and other insulin resistance Status: Acute DS: Summary Hospital Course Reason for hospitalization: Shortness of breath Hospital Course: This is a 79-year-old female patient with a history of hypertension coronary artery disease metabolic syndrome hyperlipidemia who is status post 4 vessel CABG and valve repair in August 2024. Patient is admitted to the hospital with progressive dyspnea building over the last couple of weeks. Patient reports that she has been participating in cardiac rehab after her CABG and valve repair but states that she still battles persistent fatigue and does not feel like she is improving. She notes that she has been getting more dyspneic over the last couple of weeks. Patient was referred to the ER from urgent care where she went to seek treatment for nonproductive cough and shortness of breath. She was recently started on very low-dose furosemide 10 mg daily for lower extremity edema. She has been referred to pulmonology with an appointment next week and a repeat cardiology appointment the end of this month. Patient reports that the dyspnea is worse with exertion and that her cough is persistent and mostly dry. She states that she tried using an inhaler and nasal spray for the cough but neither of those have helped. She reports very occasional clear sputum. Patient denies any fever chills. She denies nausea or vomiting. In the ER patient received IV furosemide which has prompted her to urinate more frequently. Laboratory findings showed normal white blood cell count, normal H&H, normal platelets. Chemistry panel reveals mildly elevated glucose but this is not a fasting sample. Liver enzymes are also very mildly increased from prior likely post congestive. ProBNP elevated at 4990. Troponin normal. Chest x-ray shows left basilar atelectasis versus pneumonia. Because of significant coughing, ER started patient on IV Rocephin. CTA completed which showed cardiomegaly with reflux of contrast in the IVC and hepatic veins suggestive of right-sided heart failure, no pulmonary embolism, minimal right pleural effusion and again demonstrates left basilar atelectasis versus pneumonia. Patient's hea rt rate has been bradycardic and her blood pressure has been elevated. EKG in the ER shows bigeminal ectopic beats that were not fully perfusing on clinical examination. The elevated blood pressure is felt to be compensatory for the bradycardia. ER consulted Cardiology spoke to Dr. Pool who stated to diurese patient and admit for evaluation in the morning. Cardiology evaluated the patient in the morning and cleared her for discharge from a cardiac standpoint. They recommended discharging patient on 40 mg Lasix daily, obtaining a BMP in 2 weeks as an outpatient, and educated the patient on proper CHF management. They also recommended that she follow-up in the outpatient setting with our office in 1 month. He did not recommend obtaining a repeat echocardiogram as she had 1 in November. In the morning of 01/18, the patient endorsed 0 pain or shortness of breath. She was not swollen on exam and lung sounds were clear. Patient is otherwise hemodynamically stable and does not require further hospitalization at this time. Plan for discharge home. Status at Discharge Functional status at discharge: independent ambulation Overall status at discharge: patient is progressing back to baseline Time Spent with Patient Time attestation: Total time spent providing and/or coordinating discharge services: 30 Exam Narrative: GENERAL: Awake, alert, well-nourished, and in no acute distress. HEAD: Normocephalic, atraumatic. ENT:? Mucous membranes moist. CHEST: Mild scattered crackles with persistent dry non productive cough HEART: Bradycardic rate regular rhythm. Normal peripheral pulses. ABDOMEN: Soft, nontender, nondistended. EXTREMITIES: Normal range of motion. No lower extremity edema SKIN: Warm dry normal color NEURO: Alert and oriented x3. PSYCH: Normal mood and affect DS: Data Data Completed and Pending Labs on day of discharge: Labs from last 24 hours 01/18/25 01/17/25 01/17/25 04:26 19:28 19:03 WBC 9.4 8.3 RBC 4.84 4.67 Hgb 13.0 12.6 Hct 42.4 40.8 MCV 87.6 87.4 MCH 26.9 27.0 MCHC 30.7 L 30.9 L RDW 24.3 H 24.5 H Plt Count 251 221 MPV 11.4 H 10.7 H Immature Gran % (Auto) 0.4 0.5 Neut % (Auto) 68.4 64.3 Lymph % (Auto) 18.3 21.1 [place] % (Auto) 10.0 H 10.4 H Eos % (Auto) 2.0 2.6 Baso % (Auto) 0.9 1.1 Lymph # (Auto) 1.72 1.76 [place] # (Auto) 0.9 H 0.9 H Eos # (Auto) 0.2 0.2 Baso # (Auto) 0.1 0.1 Abs Immat Gran (auto) 0.04 H 0.04 H Absolute Neuts (auto) 6.4 5.4 Absolute Nucleated RBC 0.000 0.000 Band Neutrophils % 0 Not Reportable Nucleated RBC % 0.0 0.0 Platelet Estimate Adequate Adequate % Immature Plt Fraction 2.5 Hypochromasia 1+ Anisocytosis 1+ 1+ Ovalocytes 1+ 1+ Schistocytes None seen None seen Sodium 140 139 Potassium 3.5 4.1 Chloride 105 109 H Carbon Dioxide 27 23 Anion Gap 8 7 BUN 19 H 23 H Creatinine 0.57 L 0.54 L Estim Creat Clear Calc 53 63 Estimated GFR > 60 > 60 Glucose 103 138 H Hemoglobin A1c 5.7 Calcium 8.8 8.9 Magnesium 2.0 Total Bilirubin 0.8 0.6 AST 40 H 43 H ALT 42 H 42 H Alkaline Phosphatase 197 H 177 H Troponin I < 0.012 NT-Pro-B Natriuret Pep 4990 H Total Protein 6.6 6.6 Albumin 3.8 3.7 Influenza A (RT-PCR) Negative Influenza B (RT-PCR) Negative RSV (RT-PCR) Negative SARS-CoV-2 RNA (RT-PCR) Negative Discharge Plan Discharge Attending physician on discharge: Craig Chavez Consulting providers: Brendan Pool; Chase Berry Discharging Clinician: Chase Berry Anticipated Discharge Date/Time: 01/18/25 12:02 Patient Disposition: Home Activity: as tolerated Diet: as tolerated and heart healthy Discharge Instructions: Discharge disposition: Stable Take medications as prescribed. We are changing her Lasix from 20 mg daily to 40 mg daily We are also giving a standing order to obtain a basic metabolic panel in 2 weeks. Monitor blood pressures Take caution while standing, rising, or moving Change positions slowly taking a break between each position change If you standing feel dizzy sit back down and take a break Encouraged to continue with yearly vaccinations Return to the emergency department if he developed sudden shortness of breath, chest pain, nausea, vomiting, upset stomach or intractable diarrhea Return to the emergency department if you develop fever greater than 101.5 Follow-up with the primary care physician within 1-2 weeks Follow-up with the [facility] office within 1 month. Their contact information is going to be attached Thank you for [facility] for your healthcare needs Patient Instructions: Antibiotic Form, Apixaban (By mouth), Heart Failure (DC) Patient Language: Congolese Stand Alone Forms: General Discharge Information Follow-up/Referrals: Brendan Pool MD [Physician] - Meme Richardson DO [Primary Care Provider] - Discharge Medications: New furosemide [Lasix] 40 mg tablet 40 mg PO DAILY Qty: 30 0RF Continued Eliquis 5 mg tablet 5 mg PO BID famotidine 20 mg tablet 20 mg PO DAILY cholecalciferol (vitamin D3) 25 mcg (1,000 unit) tablet 25 mcg PO DAILY fluticasone propionate [Flonase Allergy Relief] 50 mcg/actuation spray,suspension 1 spray intranasal DAILY Rx Instructions: administer into each nostril losartan 50 mg tablet 25 mg PO DAILY clopidogrel [Plavix] 75 mg tablet 75 mg PO DAILY Patient Comments: Prescribed at Hospital discharge on 09/11/24 by cardiology acetaminophen 500 mg capsule 1,000 mg PO Q6H PRN (Reason: fever or pain) All Day Allergy (cetirizine) 10 mg capsule 10 mg PO DAILY PreserVision AREDS 4,296 mcg-226 mg-90 mg capsule 1 cap PO BID psyllium Powder 1 tbsp PO DAILY Rx Instructions: mix into at least 8 oz of water or juice before administering simethicone [Gas Relief (simethicone)] 125 mg capsule 125 mg PO DAILY PRN (Reason: abdominal distention) metoprolol tartrate 25 mg tablet 12.5 mg PO BID potassium chloride [Klor-Con 10] 10 mEq tablet extended release 10 meq PO DAILY Qty: 30 0RF (DME) BreatheRite MDI Spacer Spacer See Rx Instructions .Route Qty: 1 0RF Rx Instructions: Use spacer with your inhaler as needed atorvastatin 40 mg Tablet 40 mg PO DAILY Qty: 30 0RF sennosides-docusate sodium [Senokot-S] 8.6-50 mg Tablet 1 tab PO HS Qty: 30 0RF sertraline 50 mg tablet 50 mg PO DAILY Qty: 90 1RF Discontinued furosemide 20 mg tablet 10 mg PO QAM Qty: 30 0RF Other Ambulatory Orders: Basic Metabolic Panel (Routine) Timeframe: 2 Weeks Location: Determined by Patient Ordered By: Chase Berry Date of admission: 01/17/25 22:46 Primary Care Provider: Meme Richardson Admitting Provider: Craig Chavez Attending physician on admission: Craig Chavez Condition: Stable Quality VTE Prophylaxis VTE prophylaxis: pharmacologic ordered (Eliquis)
== END 2025-01-18 12:53 | disposition home or self-care (01) | DRG 291 ==
LOC: ANHED 23:19 → ANHIMU 23:26
PROVIDERS: Emergency Medicine; Nurse Practitioner; Admitting Provider Family Medicine; Emergency Provider Student in an Organized Health Care Education/Training Program; PCP Family Medicine; Visit Provider Physician Assistant
DX: I11.0 Hypertensive heart disease with heart failure (principal); I50.33 Acute on chronic diastolic (congestive) heart failure; I25.10 Atherosclerotic heart disease of native coronary artery without angina pectoris; R00.1 Bradycardia, unspecified; I49.8 Other specified cardiac arrhythmias; I48.91 Unspecified atrial fibrillation; E88.810 Metabolic syndrome; E78.2 Mixed hyperlipidemia; M47.812 Spondylosis without myelopathy or radiculopathy, cervical region; M81.0 Age-related osteoporosis without current pathological fracture; H35.30 Unspecified macular degeneration; Z20.822 Contact with and (suspected) exposure to COVID-19; Z79.01 Long term (current) use of anticoagulants; Z79.02 Long term (current) use of antithrombotics/antiplatelets; Z79.899 Other long term (current) drug therapy; Z95.1 Presence of aortocoronary bypass graft; Z98.890 Other specified postprocedural states
CPT/HCPCS: 36415; 71046; 71275; 80053; 83036; 83735; 83880; 84484; 85025; 85055; 87637; 93005; 96374; 99285; A9270; J0696; J1938; Q9967

== ENCOUNTER 2025-01-22 12:10 | Outpatient (CLI) | payer MEDICARE, SELFPAY ==
--- NOTE | ~2025-01-22 | XR_ITS ---
Clinical Indication: Pleural effusion PA and lateral views of the chest: Comparison: 01/17/2025 Findings: The lungs are clear, without evidence of focal consolidation or pleural effusion. Stable el evation of the left diaphragm. Stable cardiac silhouette, without evidence of prior valve replacement . Bones and soft tissues are unremarkable. Impression: Clear lungs. Stable elevation left hemidiaphragm. Stable cardiomegaly, status post valve replacement. Reviewed, dictated and finalized at location [facility]. Impression: Clear lungs. Stable elevation left hemidiaphragm. Stable cardiomegaly, status post valve replacement.
--- NOTE | ~2025-01-22 | XR_ITS ---
Left Shoulder Technique: AP and scapular Y views were obtained. Clinical History: Pain Findings: No fracture or dislocation is seen. Osseous alignment is anatomic. The glenohumeral and acr omioclavicular joint spaces are preserved. Soft tissues are unremarkable. Impression: Unremarkable left shoulder radiographs. Reviewed, dictated and finalized at [facility]. Impression: Unremarkable left shoulder radiographs.
== END 2025-01-22 12:11 | disposition home or self-care (01) ==
LOC: GOSHIMG 12:10
PROVIDERS: PCP Nurse Practitioner; Visit Provider Nurse Practitioner
DX: I51.7 Cardiomegaly (principal); J98.6 Disorders of diaphragm; M25.512 Pain in left shoulder
CPT/HCPCS: 71046; 73030

== ENCOUNTER 2025-01-28 15:44 | Outpatient (CLI) | payer MEDICARE, SELFPAY ==
--- NOTE | ~2025-01-28 | XR_ITS ---
CHEST RADIOGRAPH, PA AND LATERAL CLINICAL HISTORY: R05.9 - Cough, unspecified . COMPARISON: 01/22/2025 TECHNIQUE: PA and lateral views of the chest. FINDINGS Sternal fixation is redemonstrated. Annular ring in the mitral position. The remainder of the cardiomediastinal silhouette is otherwise unremarkable. Elevation of the left hemidiaphragm with adjacent compressive atelectasis. Air opacified stomach projects into the left hemithorax, unchanged from prior. Increased interstitial markings are identified bilaterally, findings suggesting mild pulmonary vascul ar congestion. The lungs are otherwise clear. IMPRESSION: Mild pulmonary vascular congestion, without focal infiltrate or effusion. Reviewed, dictated and finalized at location A.
--- OUTSIDE RECORDS SUMMARY | 2025-01-28 16:47 | XMS_ITS | Referral Summary ---
Author Organization [facility] [address] [facility] [address] Address [address] [place] [address] Care Team Providers Care Boiler Repairman Name Role Phone Meme Richardson DO Primary Care Provider [phone] Dusty Bernal MD Unavailable [phone] Brendan Pool MD Unavailable Miscellaneous, Not In File Unavailable Unava ilable Encounters Date Type Department Care Team Description 01/24/2025 2:15 PM CDT Office Visit [facility] Pulmonology [address] [facility] [address] [place] [address] Ekaterina Hummel MD Shortness of breath (Primary Dx); Subacute cough; Abnormal CT of the chest 01/22/2025 Telephone [facility] Cardiology [address] [facility] [[email or web address] [address] [place] [address] Brendan Pool MD 01/17/2025 7:50 PM CDT - 01/17/2025 11:59 PM CDT Hospital Encounter [facility] [address] [facility] [place] [address] Discharge Disposition: Discharge to home or self care 12/29/2024 10:35 AM CDT - 12/29/2024 11:59 PM CDT Hospital Encounter [facility] [employer] [address] [facility] [place] [address] Discharge Disposition: Discharge to home or self care 12/25/2024 11:40 AM CDT - 12/25/2024 11:59 PM CDT Hospital Encounter [facility] [employer] [address] [facility] [place] [address] Discharge Disposition: Discharge to home or self care 12/25/2024 Telephone [facility]iology [address] [place] [address] [place] [phone] Brendan Pool MD 11/20/2024 Telephone [facility]iology [address] [place] [address] [place] [phone] Trina Rodriguez NP 11/20/2024 Results Follow-Up [place] [address] [place] [phone] Trina Rodriguez NP CBC with auto differential, Comprehensive metabolic panel, Creatine kinase (CK), total 11/20/2024 1:00 PM CDT Ancillary Procedure [place] [address] [place] [phone] Shortness of breath 11/19/2024 10:30 AM CDT - 11/19/2024 11:59 PM CDT Hospital Encounter [facility] [employer] [address] [facility] [place] [address] Discharge Disposition: Discharge to home or self care 11/19/2024 Telephone [place] [address] [place] [phone] Brendan Pool MD 11/19/2024 9:00 AM CDT Office Visit [place] [address] [place] [phone] Trina Rodriguez NP Shortness of breath (Primary Dx); Fatigue, unspecified type; Coronary artery disease of [place] artery of [place] heart with stable angina pectoris; S/P CABG x 4; Status post mitral valve annuloplasty; Statin myopathy; Paroxysmal atrial fibrillation (HCC); Chronic anticoagulation from Last 3 Months Allergies Active Allergy Reactions Criticality Noted Date Comments Niacin Headache Low 07/10/2024 Mgsyvmn-Rru-Bst Reductase Inhibitors Other (See comments) Low 07/10/2024 Certain statins caused muscle weakness Medications cholecalciferol, vitamin D3, 1,000 unit tablet,chewableI ndications:suppl ement Take 1 tablet/chew tab by mouth 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 Indications: constipation 5 Active senna-docusate (Senna-S) 8.6-50 mg Take 1 tablet by mouth daily 5 Active lidocaine (LIDODERM) 5 % Place 1 patch on the skin daily Remove & discard patch within 12 hours or as directed by . Active metoprolol tartrate (LOPRESSOR) 25 mg immediate release tabletIndication s:hypertension Take 0.5 tablets (12.5 mg total) by mouth 2 (two) times a day 30 tablet 11 5 026 Active losartan (COZAAR) 25 mg tablet Take 1 tablet (25 mg total) by mouth daily 5 Active sertraline (ZOLOFT) 50 mg tablet Take 1 tablet (50 mg total) by mouth daily 5 Active Eliquis 5 mg tabletIndication s:VTE Prophylaxis TAKE 1 TABLET(5 MG) BY MOUTH TWICE DAILY 60 tablet 2 5 Active potassium chloride ER 10 mEq CR tablet Take 1 tablet/capsule (10 mEq total) by mouth daily 5 Active Active Problems Problem Noted Date Diagnosed Date Coronary artery disease (CAD) excluded Mitral valve insufficiency 08/06/2024 Coronary artery disease of n ative heart with stable angina pectoris 07/24/2024 Coronary artery disease of n ative artery of [place] heart with stable angina pectoris 06/28/2024 Social History Tobacco Use Types Packs/Day Years Used Date Smoking Tobacco: Never Smokeless Tobacco: Never Comments:Pt was to a smoker. OASIS D0700: Social Isolation Answer Da te [...] materials from doctor or pharmacy Never 10/23/2024 [facility] Utilities Answer Date Recorded In the past 12 months has e [employer], gas, oil, or water [employer] threatened to shut off services in your [...] any clubs o r organizations such as restorationism groups, unions, fraternal or athletic groups, or [...] any time in the past 12 m [facility], were you homeless or living in a snf (including now)? No 08/30/2024 Personal Safety Answer [...] Sign Reading Time Taken Comments Blood Pressure 147/66 01/24/2025 2:04 PM CDT Pulse 46 01/24/2025 2:04 PM CDT Temperature 36.6 C (97.9 F) 01/24/2025 2:04 PM CDT Respiratory Rate 18 01/24/2025 2:04 PM CDT Oxygen Saturation 98% 01/24/2025 2:04 PM CDT Inhaled Oxygen Concentration - - Weight 59.9 kg (132 lb) 01/24/2025 2:04 PM CDT Height 154.9 cm (5' 0.98) 01/24/2025 2:04 PM CD T Body Mass Index 24.95 01/24/2025 2:04 PM CDT Plan of Treatment Not on file Medical Devices Implanted Type Area Highway Patrol Commander Device Identifier Shelf Expiration Date Model / Serial / Lot [employer] Chente-Vandanaa rtcarolynn-Orozco Imr Etlogix 28mm 3d Reduced Curvature [id number] - [id number] - [id number] Implanted:Qty: 1 on 08/28/2024 by Dusty Bernal MD at [facility] Other - see comments N/A: Heart [employer] 08/30/2028 [id number] / [id number] / [employer] Plate Bone Low Profile 6 Hole O Shape Sternum Ti 115.104.06 - [id number] Implanted:Qty: 1 on 08/28/2024 by Dusty Bernal MD at [facility] Plate N/A: Sternum [employer] 115.104. 06 / / [employer] Plate Bone Low Profile 6 Hole H Shape Sternum Ti 115.102.06 - [id number] Implanted:Qty: 1 on 08/28/2024 by Dusty Bernal MD at [facility] Plate N/A: Sternum [employer] 115.102. 06 / / [employer] Plate Bone Low Profile 4 Hole Box Sternum Ti 115.103.04 - [id number] Implanted:Qty: 1 on 08/28/2024 by Dusty Bernal MD at [facility] Plate N/A: Sternum [employer] 115.103. 04 / / [employer] Screw Bone Slf Drl Full Thread Locking 3.5x18mm Ti 100.035.18 - [id number] Implanted:Qty: 2 on 08/28/2024 by Dusty Bernal MD at [facility] Screw N/A: Sternum [employer] 100.035. 18 / / [employer] Screw Bone Slf Drl Full Thread Locking 3.5x16mm Ti 100.035.16 - [id number] Implanted:Qty: 14 on 08/28/2024 by Dusty Bernal MD at [facility] Screw N/A: Sternum [employer] 100.035. 16 / / Procedures Procedure Name Priority Date/Time Associated Diagnosis Comments CT BODY OUTSIDE REFERENCE Routine 01/17/2025 7:[address] BODY OUTSIDE REFERENCE Routine 12/29/2024 10:35 AM CDT XR TRANSFER OF OUTSIDE FILMS Routine 12/25/2024 11:40 AM CDT TRANSTHORACIC ECHO (TTE) COMPLETE W DOPPLER/CF WO CONTRAST Routine 11/20/2024 1:23 PM CDT Shortness of breath CREATINE KINASE (CK), TOTAL Routine 11/19/2024 11:10 AM CDT Coronary artery disease of [place] artery of [place] heart with stable angina pectoris COMPREHENSIVE METABOLIC PANEL Routine 11/19/2024 11:10 AM CDT Coronary artery disease of [place] artery of [place] heart with stable angina pectoris CBC WITH AUTO DIFFERENTIAL Routine 11/19/2024 11:10 AM CDT Coronary artery disease of [place] artery of [place] heart with stable angina pectoris XR TRANSFER OF OUTSIDE FILMS Routine 11/19/2024 10:30 AM CDT HEMOGLOBIN A1C Routine 07/31/2024 9:09 AM WELDER OXYHYDROGEN Encounter for preadmission testing 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 us Provider Transcribed Order IMG CT PROCEDURES Fin al Result Performing Organization Address [facility] de Phone Number CIRILO_[email or web address] * CT Body Outside Reference (12/29/2024 10:35 AM CDT) Narrative ELISABETH_BOO_MHE - 01/23/2025 2:39 PM CDT This order has been auto-finalized and does not contain a result. us Provider Transcribed Order IMG CT PROCEDURES Fin al Result Performing Organization Address [facility] de Phone Number CIRILO_[email or web address] * XR Outside Reference (12/25/2024 11:40 AM CDT) Narrative ELISABETH_GOB_GOE - 01/23/2025 2:39 PM CDT This order has been auto-finalized and does not contain a result. us Provider Transcribed Order IMG XR PROCEDURES Fin al Result Performing Organization Address [facility] de Phone Number CIRILO_[email or web address] * TRANSTHORACIC ECHO (TTE) COMPLETE W DOPPLER/CF WO CONTRAST (11/20/2024 1:23 PM CDT) LV EF 60 % CONS SCIMAGE Anatomical Region Laterality Modality Ultrasound 11/20/2024 12:5 6 PM CDT Narrative 11/20/2024 3:31 PM CDT [facility] Cardiology [address], [place] [address] [address] [facility] [address], [place] [address] P:[phone] P:[phone] Echocardiographic Report Patient Name: MICHELLE HENRY AN : 1945 Study Date: 11/20/2024 12:56:39 PM Gender: F Tech: Location: [facility] Provider: TRINA RODRIGUEZ Height(Cm): 155 BSA: [...] Interpretation Site: Exam was interpreted at [facility]. Left Ventricle: Mild enlargement of left ventricle [...] regurgitation. Electronically Signed By: Ricardo Hawthorne MD, [facility] 11/20/2024 3:31:17 PM CDT Procedure Note Ricardo Hawthorne MD - 11/20/2024 [facility] Cardiology [address] [facility] [address], [place] [address] [address] [facility] [address], [place] [address] P:[phone] P:[phone] Echocardiographic Report Patient Name: MICHELLE HENRY AN : 1945 Study Date: 11/20/2024 12:56:39 PM Gender: F Tech: Location: [facility] Provider: TRINA RODRIGUEZ Height(Cm): 155 BSA: [...] Interpretation Site: Exam was interpreted at [facility]. Left Ventricle: Mild enlargement of left ventricle [...] regurgitation. Electronically Signed By: Ricardo Hawthorne MD, [facility] 11/20/2024 3:31:17 PM CDT Trina Rodriguez NP [...] BLOOD ORDERABLES Randa arnold Result [facility] [address] [place] [phone] * Creatine kinase (CK), total (11/19/2024 11:10 AM CDT) CK 47 18 - 225 U/L [facility] Blood 11/19/2024 11:1 0 AM CDT 11/19/2024 11:10 AM CDT Narrative [facility] - 11/20/2024 5:43 AM CDT FASTING:YES FASTING: YES us Trina Rodriguez NP LAB BLOOD ORDERABLES Randa l Result [facility] [address] [place] [phone] * (ABNORMAL) Comprehensive metabolic panel (11/19/2024 11:10 [...] AM CDT FASTING:YES FASTING: YES Trina Rodriguez ASSISTANT STATISTICIAN LAB BLOOD ORDERABLES Randa l Result [facility] [address] [address] [place] [address] * XR Outside Reference (11/19/2024 10:30 AM CDT) Narrative RAD_HILDA_MHB_MHE - 01/23/2025 2:39 PM CDT This order has been auto-finalized and does not contain a result. Provider Transcribed Order IMG XR PROCEDURES Fin al Result Performing Organization Address [facility] Co de Phone Number RAD_[email or web address] * Hemoglobin A1c (07/31/2024 9:09 AM WELDER OXYHYDROGEN) Hgb A1C 5.3 4.0 - 5.6 % Estimated Average Glucose 105 mg/dL AZ[facility] XIE Comment: The ADA recommends reporting an estimated Average Glucose (eAG) with all Hemoglobin A1c results using the equation derived from a study of 507 normal and diabetic adults. Minority populations were underrepresented and children were not included. (Diabetes Care 31:8681-1857, 2008). The eAG is not equivalent to a fasting glucose. Blood 07/31/2024 9:09 AM WELDER OXYHYDROGEN 07/31/2024 9:35 AM WELDER OXYHYDROGEN Fidelia Samuels ASSISTANT STATISTICIAN LAB BLOOD ORDERABLES Final Res ult Performing Organization Address City/[facility]/ZIP Co de Phone Number AZAM XIE [address] [address] Department [place] [address] * (ABNORMAL) Lipid panel (06/10/2024) SCRIBED Cholesterol, Total 196 < - 200 EXTERNAL LAB SCRIBED HDL 56(A) > - 40 EXTERNAL LAB SCRIBED LDL 112(A) < - 100 EXTERNAL LAB SCRIBED Triglycerides 95 < - 150 EXTERNAL LAB Blood 06/10/2024 us Historical Provider LAB BLOOD ORDERABLES Randa arnold Result EXTERNAL LAB from Last 3 Months or Most Recently Relevant to Health Maintenance Insurance [facility] MEDICARE [employer] MEDICARE Advance Directives For more information, please contact: [phone] Documents on File Type Date Recorded Patient Fly Raiser Lockstitch Expl anation ADVANCE DIRECTIVE 09/11/2024 1:01 PM POWER OF RESPIRATORY MEDICINE PHYSICIAN-MEDICAL * Full Code (Latest Code Status on File) Date Activated Date Inactivated Comments 08/28/2024 3:22 PM 09/10/2024 5:56 PM Care Teams Boiler Repairman Relationship Specialty Start Date End Date Meme Richardson DO [address] [place] [address] [address] [place] [address] PCP - General Family Medicine 09/10/24 Dusty Bernal MD [address] [place] [address] [address] [place] [address] Surgeon Cardiothoracic Surgery 09/10/24 Brendan Pool MD [address] [place] [address] Consulting Physician Cardiology 09/10/24 Miscellaneous, Not In File 09/10/24
--- OUTSIDE RECORDS SUMMARY | 2025-01-28 16:47 | XMS_ITS | Encounter Summary ---
Author Organization [facility] Healthcare Address [address] [place] [address] Care Team Providers Care Business System Consultant Name Role Phone Meme Richardson Primary Care Provider [phone] Ginioswaldo [place] Mackenzie DO Primary Care Provider [phone] Dusty Bernal MD Unavailable [phone] Brendan Pool MD Unavailable Miscellaneous, Not In File Unavailable Unava ilable Encounter Details Date Type Department Care Team (Late st Contact Info) Description 06/13/2024 Orders Only [facility] Health Information Management [address] [place] [address] Tere Schmitt MD [address] [place] [phone] Social History Tobacco Use Types Packs/Day [...] on filedocumented in this encounter Care Teams Business System Consultant Relationship Specialty Start Date End Date Meme Richardson DO [address] [place] [address] [address] [place] [address] PCP - General Family Medicine 06/10/24 09/09/24 Meme Richardson DO [address] [place] [address] [address] [place] [address] PCP - General Family Medicine 09/10/24 Dusty Bernal MD [address] [place] [address] [address] [place], [place] [id number] Surgeon Cardiothoracic Surgery 09/10/24 Brendan Pool MD [address] [facility] [address] [place] [address] Consulting Physician Cardiology 09/10/24 Miscellaneous, Not In File 09/10/24 documented as of this encounter
--- OUTSIDE RECORDS SUMMARY | 2025-01-28 16:47 | XMS_ITS | Clinical Summary ---
Author Organization [facility] [address] Address [address] [place] [address] Care Team Providers Care Garment Sorter Name Role Phone Meme Richardson DO Primary Care Provider +1- [phone] Dusty Bernal MD Unavailable Brendan Pool MD Unavailable Miscellaneous, Not In File Unavailable Unava ilable Allergies Active Allergy Reactions Criticality Noted Date Comments Niacin Headache Low 07/10/2024 Sbbqkui-Mic-Cfu Reductase Inhibitors Other (See comments) Low 07/10/2024 Certain statins caused muscle weakness Medications cholecalciferol, vitamin D3, 1,000 unit tablet,chewableI ndications:suppl ement Take 1 tablet/chew tab by mouth pump installer before breakfast Active atorvastatin (LIPITOR) 40 mg tabletIndication s:hyperlipidemia Take 1 tablet (40 mg total) by mouth daily 90 tablet 3 4 Active cetirizine 10 mg capsuleIndicatio ns:Allergic Rhinitis Take 1 tablet by mouth pump installer before breakfast Active fluticasone propionate (FLONASE) 50 [...] artery disease of n ative artery of [place] heart with stable angina pectoris 06/28/2024 Encounters Date Type Department Care Team Description 01/24/2025 2:15 PM CDT Office Visit [facility] Pulmonology [address] [facility] [address] [place] [phone] Ekaterina Hummel MD Shortness of breath (Primary Dx); Subacute cough; Abnormal CT of the chest 01/22/2025 Telephone [facility] Cardiology [address] [place] [address] [place] [phone] Brendan Pool MD 01/17/2025 7:50 PM CDT - 01/17/2025 11:59 PM CDT Hospital Encounter [facility] [address] [facility] [place] [address] Discharge Disposition: Discharge to home or self care 12/29/2024 10:35 AM CDT - 12/29/2024 11:59 PM CDT Hospital Encounter [facility] [address] [facility] [place] [address] Discharge Disposition: Discharge to home or self care 12/25/2024 11:40 AM CDT - 12/25/2024 11:59 PM CDT Hospital Encounter [facility] [address] [facility] [place] [address] Discharge Disposition: Discharge to home or self care 12/25/2024 Telephone [facility] Cardiology [address] [place] [address] [place] [phone] Brendan Pool MD 11/20/2024 1:00 PM CDT Ancillary Procedure [facility] Cardiology [address] [place] [address] [place] [phone] Shortness of breath 11/20/2024 Telephone [facility] Cardiology [address] [place] [address] [place] [phone] Trina Rodriguez NP 11/20/2024 Results Follow-Up [facility] Cardiology [address] [place] [address] [place] [phone] Trina Rodriguez NP CBC with auto differential, Comprehensive metabolic panel, Creatine kinase (CK), total 11/19/2024 10:30 AM CDT - 11/19/2024 11:59 PM CDT Hospital Encounter [facility] [employer] [address] [facility] [place] [address] Discharge Disposition: Discharge to home or self care 11/19/2024 9:00 AM CDT Office Visit [facility] Cardiology [address] [place] [address] Trina Rodriguez NP Shortness of breath (Primary Dx); Fatigue, unspecified type; Coronary artery disease of [place] artery of [place] heart with stable angina pectoris; S/P CABG x 4; Status post mitral valve annuloplasty; Statin myopathy; Paroxysmal atrial fibrillation (HCC); Chronic anticoagulation 11/19/2024 Telephone [facility] Cardiology [address] [place] [address] Brendan Pool MD from Last 3 Months Surgical History Surgery [...] disturbance STEMI (ST elevation myocardi al infarction) (HCC) 06/10/2024 CAD (coronary artery disease) 06/10/2024 Vertigo [...] materials from doctor or pharmacy Never 10/23/2024 [facility] Utilities Answer Date Recorded In the [...] often do you attend chur ch or scientology services? More than 4 times per year 08/30/2024 Do you belong to any clubs o r organizations such as rastafarian groups, unions, fraternal or athletic groups, or [...] any time in the past 12 m [facility], were you homeless or living in a group home (including now)? No 08/30/2024 Personal Safety [...] 01/24/2025 2:04 PM CDT Plan of Treatment Health Maintenance Due Date Last Done Comments Albumin Creatinine Ratio, Urine 1945 Depression Screening 1945 Hepatitis C Screening 1945 Osteoporosis Screening-Bone Density Scan 1945 Dilated Eye Exam 1945 Foot Exam 1945 Hepatitis B Screening 1965 Well Visit 65+ 2012 Pneumococcal vaccine 65+ (2 of 2 - PPSV23) 07/14/2015 05/19/2015 DTaP/Tdap/Td Vaccine (1 - Tdap) 02/02/2019 9 Covid-19 Vaccine (8 2023-2 5 season) 2024 05/14/2024, 05/23/2023, 05/04/2022, Additional history exists Hemoglobin A1C 01/29/2025 07/31/2024 Lipid Panel 06/10/2025 06/10/2024 Fall Risk Assessment 09/10/2025 09/10/2024 eGFR 11/19/2025 11/19/2024, 02/0 08/2024, 09/10/2024, Additional history exists Zoster Vaccine Completed 11/03/2023, 08/15, 10/18/2016 Influenza Vaccine Completed 05/14/2024, , 05/24/2022, Additional history exists Medical Devices Implanted Type Area Sustainability Coordinator Device Identifier Shelf Expiration Date Model / Serial / Lot [employer] Chente-Vandanaa rtcarolynn-Orozco Imr Etlogix 28mm 3d Reduced Curvature [id number] - [id number] - [id number] Implanted:Qty: 1 on 08/28/2024 by Dusty Bernal MD at [facility] Other - see comments N/A: Heart [employer] 08/30/2028 [id number] / [id number] / [employer] Plate Bone Low Profile 6 Hole O Shape Sternum Ti 115.104.06 - [id number] Implanted:Qty: 1 on 08/28/2024 by Dusty Bernal MD at [facility] Plate N/A: Sternum [employer] 115.104. 06 / / [employer] Plate Bone Low Profile 6 Hole H Shape Sternum Ti 115.102.06 - [id number] Implanted:Qty: 1 on 08/28/2024 by Dusty Bernal MD at [facility] Plate N/A: Sternum [employer] 115.102. 06 / / [employer] Plate Bone Low Profile 4 Hole Box Sternum Ti 115.103.04 - [id number] Implanted:Qty: 1 on 08/28/2024 by Dusty Bernal MD at [facility] Plate N/A: Sternum [employer] 115.103. 04 / / [employer] Screw Bone Slf Drl Full Thread Locking 3.5x18mm Ti 100.035.18 - [id number] Implanted:Qty: 2 on 08/28/2024 by Dusty Bernal MD at [facility] Screw N/A: Sternum [employer] 100.035. 18 / / [employer] Screw Bone Slf Drl Full Thread Locking 3.5x16mm Ti 100.035.16 - [id number] Implanted:Qty: 14 on 08/28/2024 by Dusty Bernal MD at [facility] Screw N/A: Sternum [employer] [...] 11:10 AM CDT Coronary artery disease of [place] artery of [place] heart with stable angina pectoris COMPREHENSIVE METABOLIC PANEL Routine 11/19/2024 11:10 AM CDT Coronary artery disease of [place] artery of [place] heart with stable angina pectoris CBC WITH AUTO DIFFERENTIAL Routine 11/19/2024 11:10 AM CDT Coronary artery disease of [place] artery of [place] heart with stable angina pectoris XR TRANSFER OF OUTSIDE FILMS Routine 11/19/2024 10:30 AM CDT HEMOGLOBIN A1C Routine 07/31/2024 9:09 AM CANDLEMAKER Encounter for preadmission testing 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 us Provider Transcribed Order IMG CT PROCEDURES Fin al Result Performing Organization Address [facility] de Phone Number [email or web address] * CT Body Outside Reference (12/29/2024 10:35 AM CDT) Narrative JAKE_GOE - 01/23/2025 2:39 PM CDT This order has been auto-finalized and does not contain a result. us Provider Transcribed Order IMG CT PROCEDURES Fin al Result Performing Organization Address [facility] de Phone Number [email or web address] * XR Outside Reference (12/25/2024 11:40 AM CDT) Narrative JAKE_GOE - 01/23/2025 2:39 PM CDT This order has been auto-finalized and does not contain a result. us Provider Transcribed Order IMG XR PROCEDURES Fin al Result Performing Organization Address [facility] de Phone Number [email or web address] * TRANSTHORACIC ECHO (TTE) COMPLETE W DOPPLER/CF WO CONTRAST (11/20/2024 1:23 PM CDT) LV EF 60 % CONS SCIMAGE Anatomical Region Laterality Modality Ultrasound 11/20/2024 12:5 6 PM CDT Narrative 11/20/2024 3:31 PM CDT [facility] Cardiology [address], [place] [address] [address] [facility] [address], [place] [address] P:[phone] P:[phone] Echocardiographic Report Patient Name: MICHELLE HENRY AN : 1945 Study Date: 11/20/2024 12:56:39 PM Gender: F Tech: Location: [facility] Provider: TRINA RODRIGUEZ Height(Cm): 155 BSA: [...] Site: Exam was interpreted at [facility]. Left Ventricle: Mild enlargement of left [...] regurgitation. Electronically Signed By: Ricardo Hawthorne MD, [facility] 11/20/2024 3:31:17 PM CDT Procedure Note Ricardo Hawthorne MD - 11/20/2024 [facility] Medical [facility] Cardiology [address] [facility] [address] [address] [address] [facility] [address], [place] [address] P:[phone] P:[phone] Echocardiographic Report Patient Name: MICHELLE HENRY AN : 1945 Study Date: 11/20/2024 12:56:39 PM Gender: F Tech: Location: [facility] Provider: TRINA RODRIGUEZ Height(Cm): 155 BSA: [...] Site: Exam was interpreted at [facility]. Left Ventricle: Mild enlargement of left [...] BLOOD ORDERABLES Randa arnold Result [facility] [address] [place] [id number] * Creatine kinase (CK), total (11/19/2024 11:10 AM CDT) CK 47 18 - 225 U/L [facility] Blood 11/19/2024 11:1 0 AM CDT 11/19/2024 11:10 AM CDT Narrative [facility] - 11/20/2024 5:43 AM CDT FASTING:YES FASTING: YES us Trina Rodriguez MANAGER OF CONSTRUCTION LAB BLOOD ORDERABLES Randa l Result [facility] [address] [address] [place] [id number] * (ABNORMAL) Comprehensive metabolic panel (11/19/2024 11:10 [...] AM CDT FASTING:YES FASTING: YES Trina Rodriguez MANAGER OF CONSTRUCTION LAB BLOOD ORDERABLES Randa l Result Performing Organization Address City/[facility]/ZIP Co de Phone Number [facility] [address] [address] [place] [phone] * XR Outside Reference (11/19/2024 10:30 AM CDT) Narrative RAD_HILDA_GOB_MHE - 01/23/2025 2:39 PM CDT This order has been auto-finalized and does not contain a result. Provider Transcribed Order IMG XR PROCEDURES Fin al Result Performing Organization Address [facility] Co de Phone Number [email or web address] * Hemoglobin A1c (07/31/2024 9:09 AM CANDLEMAKER) Hgb A1C 5.3 4.0 - 5.6 % Estimated Average Glucose 105 mg/dL AZAM XIE Comment: The ADA recommends reporting an estimated Average Glucose (eAG) with all Hemoglobin A1c results using the equation derived from a study of 507 normal and diabetic adults. Minority populations were underrepresented and children were not included. (Diabetes Care 31:1562-4535, 2008). The eAG is not equivalent to a fasting glucose. Blood 07/31/2024 9:09 AM CANDLEMAKER 07/31/2024 9:35 AM CANDLEMAKER Fidelia Samuels MANAGER OF CONSTRUCTION LAB BLOOD ORDERABLES Final Res ult Performing Organization Address [facility] Co de Phone Number AZAM XIE [address] Department [place] [address] * (ABNORMAL) Lipid panel (06/10/2024) SCRIBED Cholesterol, Total 196 < - 200 EXTERNAL LAB SCRIBED HDL 56(A) > - 40 EXTERNAL LAB SCRIBED LDL 112(A) < - 100 EXTERNAL LAB SCRIBED Triglycerides 95 < - 150 EXTERNAL LAB Blood 06/10/2024 us Historical Provider LAB BLOOD ORDERABLES Randa arnold Result EXTERNAL LAB from Last 3 Months or Most Recently Relevant to Health Maintenance Insurance [facility] Advance Directives For more information, please contact: [phone] Documents on File Type Date Recorded Patient Cathodic Protection Technician Expl anation ADVANCE DIRECTIVE 09/11/2024 1:01 PM POWER OF CORPORATE DIRECTOR OF PHARMACY-MEDICAL * Full Code (Latest Code Status on File) Date Activated Date Inactivated Comments 08/28/2024 3:22 PM 09/10/2024 5:56 PM Care Teams Garment Sorter Relationship Specialty Start Date End Date Meme Richardson DO [address] [place] [address] [address] [place] [address] PCP - General Family Medicine 09/10/24 Dusty Bernal MD [address] [place] [address] [address] [place] [address] Surgeon Cardiothoracic Surgery 09/10/24 Brendan Pool MD [address], [address] [place] [address] Consulting Physician Cardiology 09/10/24 Miscellaneous, Not In File 09/10/24
== END 2025-01-28 15:45 | disposition home or self-care (01) ==
PROVIDERS: PCP Nurse Practitioner; Visit Provider Family Medicine
DX: I50.9 Heart failure, unspecified (principal)
CPT/HCPCS: 71046

== ENCOUNTER 2025-02-21 12:30 | Outpatient (RCR) | payer MEDICARE, SELFPAY | END 2025-02-21 13:05 | disposition home or self-care (01) | LOC: ANHCPREHAB 12:30 | PROVIDERS: PCP Family Medicine; Visit Provider Internal Medicine Cardiovascular Disease | DX: Z95.1 Presence of aortocoronary bypass graft (principal); I25.2 Old myocardial infarction; Z95.2 Presence of prosthetic heart valve; Z98.61 Coronary angioplasty status | CPT/HCPCS: 93798 ==

== ENCOUNTER 2025-05-27 07:27 | Outpatient (CLI) | payer MEDICARE, SELFPAY ==
--- NOTE | ~2025-05-27 | US_ITS ---
EXAMINATION: US abdomen limited DATE: 05/27/2025 09:32 INDICATION: Abnormal findings of blood chemistry. TECHNIQUE: Multiple grayscale and Doppler ultrasound images of the abdomen were obtained. COMPARISON: Chest CT 01/17/2025 FINDINGS: The visualized portions of the head and body of the pancreas are normal. The liver is normal without focal lesion. There is bidirectional, predominantly antegrade flow in main portal vein. The gallbladder is normal in size and contains a gallstone. Gallbladder wall thickening is noted. There was no sonographic Figueroa's sign. The common duct is normal and measures 4 mm. IMPRESSION: 1. Cholelithiasis. Gallbladder wall thickening may be secondary to interstitial edema or chronic cholecystitis. Reviewed, dictated and finalized at location E.
--- OUTSIDE RECORDS SUMMARY | 2025-05-27 07:33 | XMS_ITS | Encounter Summary ---
Author Organization [facility] Address [address] [place] [address] Care Team Providers Care Thermal Cutting Machine Operator Name Role Phone Dylan Meme Mackenzie DO Primary Care Provider [phone]- [phone] Meme Richardson DO Primary Care Provider [phone]- [phone] Dusty Bernal MD Unavailable [phone] Brendan Pool MD Unavailable Miscellaneous, Not In File Unavailable Unava ilable Encounter Details Date Type Department Care Team (Late st Contact Info) Description 06/14/2024 Orders Only [facility] Health Information Management [address] [place] [address] Scanning, Provider Social History Tobacco Use Types Packs/Day Years [...] Date/Time Associated Diagnosis Comments SCAN - RADIOLOGY/IMAGING 06/14/2024 9:28 PM CDT documented in this encounter Results * SCAN - RADIOLOGY/IMAGING (06/14/2024 9:28 PM CDT) Anatomical Region Laterality Modality Other us Provider Scanning Final Result documented in this encounter Visit Diagnoses Not on filedocumented in this encounter Care Teams Thermal Cutting Machine Operator Relationship Specialty Start Date End Date Vernace, Meme Avril PCP - General Family Medicine 06/10/24 09/09/24 GinirushmimiMeme AvrilDO PCP - General Family Medicine 09/10/24 Dusty Bernal MD Surgeon Cardiothoracic Surgery 09/10/24 Brendan Pool MD [address] [place] [address] Consulting Physician Cardiology 09/10/24 Miscellaneous, Not In File 09/10/24 documented as of this encounter
--- OUTSIDE RECORDS SUMMARY | 2025-05-27 07:33 | XMS_ITS | Encounter Summary ---
Author Organization [facility] Address [address] [place] [address] Care Team Providers Care Newspaper Peddler Name Role Phone Meme Richardson Primary Care Provider [phone]- [phone] Ginioswaldo Mememo Mackenzie DO Primary Care Provider [phone]- [phone] Dusty Bernal MD Unavailable [phone] Brendan Pool MD Unavailable Miscellaneous, Not In File Unavailable Unava ilable Encounter Details Date Type Department Care Team (Late st Contact Info) Description 06/13/2024 Orders Only [facility] Information Management [address] [place] [address] Tere Schmitt MD [address] [place] [address] [address] Social History Tobacco Use Types Packs/Day Years [...] Procedure Name Priority Date/Time Associated Diagnosis Comments CARDIOLOGY DOCUMENT SCAN 06/13/2024 9:29 PM CDT SCAN - RADIOLOGY/IMAGING 06/13/2024 documented in this encounter Results * Cardiology Document Scan (06/13/2024 9:29 PM CDT) Anatomical Region Laterality Modality Other us Provider Scanning CV CARDIAC SERVICES PROCEDURES Edited Result - Final * SCAN - RADIOLOGY/IMAGING (06/13/2024) Anatomical Region Laterality Modality Other us Ripa Glynn Schmitt MD Final R esult documented in this encounter Visit Diagnoses Not on filedocumented in this encounter Care Teams Newspaper Peddler Relationship Specialty Start Date End Date Meme Richardson DO PCP - General Family Medicine 06/10/24 09/09/24 Meme Richardson DO PCP - General Family Medicine 09/10/24 Dusty Bernal MD Surgeon Cardiothoracic Surgery 09/10/24 Brendan Pool MD [address] [facility] [place] [address] Consulting Physician Cardiology 09/10/24 Miscellaneous, Not In File 09/10/24 documented as of this encounter
== END 2025-05-27 07:28 | disposition home or self-care (01) ==
PROVIDERS: PCP Family Medicine; Visit Provider Nurse Practitioner Family
DX: R79.89 Other specified abnormal findings of blood chemistry (principal); K80.20 Calculus of gallbladder without cholecystitis without obstruction
CPT/HCPCS: 76705

== ENCOUNTER 2025-07-24 09:27 | Emergency (ER) | payer MEDICARE, SELFPAY ==
--- NOTE | ~2025-07-24 | CT_ITS ---
EXAMINATION: CTA chest PE protocol DATE: 07/24/2025 14:51 INDICATION: Chest pain with shortness of breath TECHNIQUE: Computed tomography (CT) pulmonary angiogram of the chest was performed with 100 mL Omnipaque-350 intravenous contrast. Additional 3D reconstructions utilizing coronal maximum intensity projection (MIP) were performed. Automated exposure control and iterative reconstruction technique were employed. The dose-length product was 270.04 mGy-cm. COMPARISON: 01/17/2025 FINDINGS: No pulmonary embolism. Again seen is elevation the left hemidiaphragm with chronic atelectasis and/or scarring at the left lung base predominantly in the left lower lobe. There is significant associated volume loss. Additional mild atelectasis in the right lower lobe. No pneumonia, pulmonary edema or pleural effusion. Cardiomegaly with right heart predominance. Atherosclerotic coronary artery calcifications. Postoperative change of prior median sternotomy and likely coronary artery bypass grafting. There is also been prior mitral valve repair. Tricuspid regurgitation with reflux of contrast into the inferior vena cava and hepatic veins. No pericardial effusion. Thoracic aorta is normal in caliber. No pathologically enlarged thoracic lymphadenopathy. Calcified gallstones in the dependent aspect of the otherwise normal-appearing gallbladder. Moderate spondylosis at T12-L1 with mild spondylosis and more cephalad thoracic spine. IMPRESSION: 1. No pulmonary embolism or other acute cardiopulmonary disease. 2. No significant interval change in volume loss with chronic left basilar atelectasis/scarring along the persistently elevated left hemidiaphragm. 3. Right heart predominant cardiomegaly with reflux of contrast into the IVC and hepatic veins consistent with tricuspid regurgitation. 4. Cholelithiasis. Reviewed, dictated and finalized at location [facility]. [facility] IMPRESSION: 1. No pulmonary embolism or other acute cardiopulmonary disease. 2. No significant interval change in volume loss with chronic left basilar atel ectasis/scarring along the persistently elevated left hemidiaphragm. 3. Right heart predominant cardiomegaly with reflux of contrast into the IVC an d hepatic veins consistent with tricuspid regurgitation. 4. Cholelithiasis.
--- NOTE | ~2025-07-24 | CT_ITS ---
EXAMINATION: CT abdomen pelvis wo con, 07/24/2025 12:35 [employer] HISTORY: left flank pain COMPARISON: No comparisons available. TECHNIQUE: CT scan of the abdomen and pelvis was performed without IV contrast. One or more of the following dose reduction techniques were used: automated exposure control, adjustment of the mA and/or kV according to patient size, use of iterative reconstruction technique. Unless otherwise stated, incidental findings do not require dedicated follow up imaging FINDINGS: CT abdomen: LUNG BASES: Lung bases demonstrate chronic changes with basilar atelectatic changes most marked left lower lobe. Moderate cardiomegaly noted. LIVER: Unremarkable, liver contours intact, no lesions. SPLEEN: Unremarkable, no splenomegaly. KIDNEYS: Right Kidney: Right kidney midpole 3 mm calculus, no hydronephrosis. Left Kidney: Unremarkable. No calculi. No hydronephrosis ADRENAL GLANDS: Unremarkable. PANCREAS: Unremarkable. GALLBLADDER/BILIARY: Mild distention of the gallbladder with cholelithiasis. STOMACH AND ESOPHAGUS: The stomach is decompressed. BOWEL/MESENTERY: Moderate fecal content, no colitis or diverticulitis. Appendix not identified, no inflammation surrounding the cecum. No stranding within the mesentery. No thickened or dilated loops of small bowel. ADENOPATHY/RETROPERITONEUM: No lymphadenopathy. AORTA/VASCULATURE: Normal caliber aorta. FREE FLUID OR FREE AIR: No free fluid.. CT pelvis: SOLID ORGANS/REPRODUCTIVE: Uterus atrophic. No adnexal mass. BLADDER: Within normal limits. OSSEOUS STRUCTURES: No acute osseous abnormality.No suspicious lesions. OVERLYING SOFT TISSUES: Small fat-containing umbilical hernia. IMPRESSION: 1. No etiology to explain left flank pain. Incidental findings above Reviewed, dictated and finalized at location P. [employer] SAL[employer]ATE
[2025-07-24 09:38] VITALS: PULSE 53; RESP 16; TEMP 36.5; O2SAT 98
[2025-07-24 10:08] LABS: Add Urine Microscopic? YES; Appearance Urine Clear (Clear); Glucose Urine UA Negative (Negative); Leukocyte Esterase Ur 1+ LEU/UL (Negative); Need Manual Microscopic Reviewed; Nitrate Urine Negative (Negative); Non Pathogenic Casts 0-2; Specific Grav Ur 1.007 (1.001-1.035)
[2025-07-24 11:44] VITALS: BP 162/55; PULSE 48; RESP 15; TEMP 36.9; O2SAT 99
[2025-07-24] MEDS: MORPHINE SULFATE (*CRX) 4 MG/ML INJ 2 MG IV PUSH (13:04)
[2025-07-24 13:06] LABS: Hematocrit 43.0 % (37.0-47.0); Hemoglobin 13.8 g/dL (12.0-15.0); Immature Granulocyte Percent A 0.6 % (0-0.5); Lymphocytes Absolute Auto 1.60 K/mm3 (0.9-3.2); Mean Corpuscular HGB Conc 32.1 g/dl (32-36); Mean Corpuscular Hemoglobin 29.2 pg (26-34); Mean Corpuscular Volume 90.9 fl (80-100); Nucleated Red Blood Cells Absolute Auto 0.000 K/mm3 (0.0-0.012); Nucleated Red Blood Cells Perc 0.0 % (0.0-0.2); Platelet Count Result 227 k/mm3 (150-375); Red Blood Count 4.73 M/mm3 (4.2-5.4); White Blood Count 9.0 K/mm3 (4.5-10.0)
[2025-07-24 13:20] LABS: INR 1.3; Prothrombin Time 15.9 Seconds (11.1-14.7)
[2025-07-24 13:27] LABS: Partial Thromboplastin Time 31.5 Seconds (22.3-36.8)
[2025-07-24 14:25] LABS: Alanine Aminotransferase 43 U/L (6-35); Albumin Level 4.3 g/dL (3.5-5.1); Alkaline Phosphatase 151 U/L (38-126); Anion Gap 8 mmol/L (4-12); Aspartate Amino Transferase 41 U/L (14-36); Bilirubin,Total 1.0 mg/dL (0.2-1.3); Blood Urea Nitrogen 20 mg/dL (7-17); Calcium 9.2 mg/dL (8.4-10.2); Carbon Dioxide 25 mmol/L (22-30); Chloride 105 mmol/L (98-107); Estimated CRCL calculation 53 ml/min; Estimated Glomerular Filt Rate > 60; Glucose 93 mg/dL (65-110); Potassium 4.2 mmol/L (3.4-5.0); Sodium 138 mmol/L (137-145); Total Protein 7.7 g/dL (6.3-8.2)
--- NOTE | 2025-07-24 15:51 | ED.GENADULT ---
HPI - General Adult General Chief complaint: Abdominal Pain Stated complaint: left flank pain Time Seen by Provider: 07/24/25 11:57 History of Present Illness HPI narrative: Patient is a 80-year-old female who presents ER with left-sided flank and chest pain as well as abdominal pain. It is along the inferior border of the ribs and worse with taking a deep breath and with palpation physical movement. No urinary frequency urgency or dysuria. No gross hematuria. Has history kidney stone in the past. Related Data Home Medications ?Medication ?Instructions ?Recorded ?Confirmed ?Last Taken ?Type acetaminophen 500 mg capsule 1,000 mg PO Q6H PRN fever or pain 09/27/24 06/10/25 Unknown History apixaban 5 mg tablet (Eliquis) 5 mg PO BID 09/27/24 06/10/25 01/17/25 History cholecalciferol (vitamin D3) 25 25 mcg PO DAILY 09/27/24 06/10/25 Unknown History mcg (1,000 unit) tablet clopidogrel 75 mg tablet (Plavix) 75 mg PO DAILY 09/27/24 06/10/25 Unknown History famotidine 20 mg tablet 20 mg PO DAILY 09/27/24 06/10/25 Unknown History fluticasone propionate 50 1 spray intranasal DAILY 09/27/24 06/10/25 Unknown History mcg/actuation nasal spray,suspension (Flonase Allergy Relief) losartan 50 mg tablet 25 mg PO DAILY 09/27/24 06/10/25 Unknown History simethicone 125 mg capsule (Gas 125 mg PO DAILY PRN abdominal 10/24/24 06/10/25 Unknown History Relief (simethicone)) distention vitamins A,C,U-hbay-mdobaj 4,296 1 cap PO BID 10/24/24 06/10/25 Unknown History mcg-226 mg-90 mg capsule (PreserVision AREDS) cetirizine 10 mg capsule (All Day 10 mg PO DAILY 01/01/25 06/10/25 Unknown History Allergy (cetirizine)) metoprolol tartrate 25 mg tablet 12.5 mg PO BID 01/01/25 06/10/25 01/17/25 History psyllium husk 3 gram oral powder 1 packet PO DAILY 06/03/25 06/10/25 Unknown History packet (Daily Fiber (psyllium-aspartame)) Allergies Allergy/AdvReac Type Severity Reaction Status Date / Time inositol AdvReac Intermediate Flushing Verified 07/24/25 09:28 niacin AdvReac Intermediate significant Verified 07/24/25 09:28 flushing, will not tolerate Review of Systems Review of Systems: All systems reviewed & are unremarkable except as noted in HPI and below Constitutional: Constitutional: Reports no additional constitutional complaints ENT: Reports system reviewed and no additional complaints, except as documented Cardiovascular: Cardiovascular: Reports no additional cardiovascular complaints Respiratory: Respiratory: Reports no additional respiratory complaints Gastrointestinal: Gastrointestinal: Reports no additional gastrointestinal complaints Musculoskeletal: Musculoskeletal: Reports no additional musculoskeletal complaints PMFSH Past Medical History Medical History Irritation of external ear canal Left ear impacted cerumen Macular degeneration Hypertension Lipoma (~2012) Hepatitis C antibody test negative (~04/11/17) Cervical spondylosis Postmenopausal osteoporosis Metabolic syndrome X Overweight Mixed hyperlipidemia Surgical History Surgical History 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 History of esophagogastroduodenoscopy (EGD) (~05/14/09) History of tubal ligation (~1975) History of colonoscopy (~01/21/05) History of colonoscopy (~06/17/15) Family History Family History Father Family history of diabetes mellitus in first degree relative Acute myocardial infarction, Onset Age: 64 Family history of cardiovascular disease Diabetes mellitus Hypertension Mother Acute myocardial infarction, Onset Age: 66 Family history of cardiovascular disease Depression Hypertension Family history of malignant neoplasm of thyroid Sibling Acute myocardial infarction Social History Social History Social History: Caffeine- coffee Smoking status: Never smoker Second hand tobacco smoke exposure: No Alcohol intake: current Drinks per week: 2 Alcohol use details: Occasional Substance use: never Substance use type: does not use Lack of Transportation: No Lack of Food: Never True Current Housing: I Have Housing Concerned About Future Housing: No Difficulty Paying Gas/Electric Bills: No Difficulty Paying for Meds: No Currently Unemployed: No Education: Master's Degree or Higher Difficulty w/ Childcare or Family Care: No Occupation/Education: retired Gender identity (if verbalized by the patient): Female Spiritual care concerns: No Exam Narrative: GENERAL: Well-appearing, well-nourished, and in no acute distress. HEAD: Normocephalic, atraumatic. ENT: Mucous membranes moist. NECK: Supple. CHEST: Clear to auscultation. No respiratory distress. HEART: Regular rate and rhythm. Normal peripheral pulses. Tender to palpation lower aspect of the chest wall on left side ABDOMEN: Soft, nontender, nondistended. Left CVA tenderness. EXTREMITIES: Normal range of motion. No edema. SKIN: Warm, dry, no rash. NEURO: Alert and oriented x3. PSYCH: Normal mood and affect. Course Vital Signs Vital signs: Vital Signs Temperature 97.7 F 07/24/25 09:38 Pulse Rate 53 L 07/24/25 09:38 Respiratory Rate 16 07/24/25 09:38 Pulse Oximetry 98 07/24/25 09:38 Oxygen Delivery Room Air 07/24/25 09:38 Temperature 97.0 F L 07/24/25 16:27 Pulse Rate 44 L 07/24/25 16:27 Respiratory Rate 16 07/24/25 16:27 Blood Pressure 127/75 07/24/25 16:27 Pulse Oximetry 100 07/24/25 16:27 Oxygen Delivery Room Air 07/24/25 09:38 MDM Differential Diagnosis Differential Diagnosis: PE, pneumonia, pneumothorax, ACS, kidney stone, pyelonephritis, UTI Lab Data 07/24/25 12:56 07/24/25 12:56 Labs: Lab Results 07/24/25 07/24/25 Range/Units 09:42 12:56 WBC 9.0 (4.5-10.0) K/mm3 RBC 4.73 (4.2-5.4) M/mm3 Hgb 13.8 (12.0-15.0) g/dL Hct 43.0 (37.0-47.0) % MCV 90.9 (80-100) fl MCH 29.2 (26-34) pg MCHC 32.1 (32-36) g/dl RDW 14.2 (11.5-14.5) % Plt Count 227 (150-375) k/mm3 MPV 10.6 H (7.4-10.4) fl Immature Gran % (Auto) 0.6 H (0-0.5) % Neut % (Auto) 70.1 (45.5-73.1) % Lymph % (Auto) 17.8 L (18.3-44.2) % [place] % (Auto) 7.9 (2.6-8.5) % Eos % (Auto) 2.7 (0-4.4) % Baso % (Auto) 0.9 (0.2-1.2) % Lymph # (Auto) 1.60 (0.9-3.2) K/mm3 [place] # (Auto) 0.7 H (0.1-0.6) K/mm3 Eos # (Auto) 0.2 (0-0.3) K/mm3 Baso # (Auto) 0.1 (0.0-0.1) K/mm3 Abs Immat Gran (auto) 0.05 H (0.00-0.031) K/mm3 Absolute Neuts (auto) 6.3 (1.3-6.7) K/mm3 Absolute Nucleated RBC 0.000 (0.0-0.012) K/mm3 Nucleated RBC % 0.0 (0.0-0.2) % PT 15.9 H (11.1-14.7) Seconds INR 1.3 APTT 31.5 (22.3-36.8) Seconds D-Dimer 0.58 H (<0.48) ug/mL Sodium 138 (137-145) mmol/L Potassium 4.2 (3.4-5.0) mmol/L Chloride 105 (98-107) mmol/L Carbon Dioxide 25 (22-30) mmol/L Anion Gap 8 (4-12) mmol/L BUN 20 H (7-17) mg/dL Creatinine 0.66 L (0.7-1.0) mg/dL Estim Creat Clear Calc 53 ml/min Estimated GFR > 60 (59 - ) Glucose 93 (65-110) mg/dL Calcium 9.2 (8.4-10.2) mg/dL Total Bilirubin 1.0 (0.2-1.3) mg/dL AST 41 H (14-36) U/L ALT 43 H (6-35) U/L Alkaline Phosphatase 151 H (38-126) U/L Total Protein 7.7 (6.3-8.2) g/dL Albumin 4.3 (3.5-5.1) g/dL Urine Color Yellow (Yellow) Urine Appearance Clear (Clear) Urine pH 7.0 (5.0-9.0) Ur Specific [place] 1.007 (1.001-1.035) Urine Protein Negative (Negative) mg/dL Urine Glucose (UA) Negative (Negative) mg/dL Urine Ketones Negative (Negative) mg/dL Ur Blood (Man) 1+ H (Negative) Urine Nitrate Negative (Negative) Urine Bilirubin Negative (Negative) Urine Urobilinogen 0.2 (<2.0) mg/dL Add Ur Microanalysis Reviewed Leukocyte Esterase Rfl 1+ H (Negative) NICK/UL Urine RBC 11-20 H (0-2) /hpf Urine WBC 0-5 (0-3) /hpf Ur Squamous Epith Cells None seen (Few) /hpf Urine Bacteria None seen /hpf Urine Casts 0-2 Imaging Data Attestation: I personally reviewed and interpreted this imaging study as follows: Radiologist's impression: ITS Impressions Abdomen/Pelvis CT 07/24/25 12:43 IMPRESSION: 1. No etiology to explain left flank pain. Incidental findings above Chest CTA 07/24/25 14:52 IMPRESSION: 1. No pulmonary embolism or other acute cardiopulmonary disease. 2. No significant interval change in volume loss with chronic left basilar atelectasis/scarring along the persistently elevated left hemidiaphragm. 3. Right heart predominant cardiomegaly with reflux of contrast into the IVC and hepatic veins consistent with tricuspid regurgitation. 4. Cholelithiasis. Discharge Plan Discharge Clinical Impression: Chest wall pain Patient Disposition: Home Condition: Stable Instructions: Chest Wall Pain (ED) Additional Instructions: Return ER if you have fever 100.4? F, you cannot keep down food water, you lose consciousness, or you have additional concerns. Take Tylenol for pain. Patient Language: Tuvaluan Prescriptions: No Action Eliquis 5 mg tablet 5 mg PO BID famotidine 20 mg tablet 20 mg PO DAILY cholecalciferol (vitamin D3) 25 mcg (1,000 unit) tablet 25 mcg PO DAILY fluticasone propionate [Flonase Allergy Relief] 50 mcg/actuation spray,suspension 1 spray intranasal DAILY Rx Instructions: administer into each nostril losartan 50 mg tablet 25 mg PO DAILY clopidogrel [Plavix] 75 mg tablet 75 mg PO DAILY Patient Comments: Prescribed at Hospital discharge on 09/11/24 by cardiology acetaminophen 500 mg capsule 1,000 mg PO Q6H PRN (Reason: fever or pain) All Day Allergy (cetirizine) 10 mg capsule 10 mg PO DAILY Daily Fiber (psyllium-aspart) 3 gram powder in packet 1 packet PO DAILY PreserVision AREDS 4,296 mcg-226 mg-90 mg capsule 1 cap PO BID simethicone [Gas Relief (simethicone)] 125 mg capsule 125 mg PO DAILY PRN (Reason: abdominal distention) metoprolol tartrate 25 mg tablet 12.5 mg PO BID (DME) BreatheRite MDI Spacer Spacer See Rx Instructions .Route Qty: 1 0RF Rx Instructions: Use spacer with your inhaler as needed atorvastatin 40 mg Tablet 40 mg PO DAILY Qty: 30 0RF sertraline 50 mg tablet 50 mg PO DAILY Qty: 90 1RF potassium chloride [Klor-Con 10] 10 mEq tablet extended release 10 meq PO DAILY Qty: 90 1RF Follow-up/Referrals: Meme Richardson DO [Primary Care Provider, Family Practice] - 1 Week
[2025-07-24 16:27] VITALS: BP 127/75; PULSE 44; RESP 16; TEMP 36.1; O2SAT 100
== END 2025-07-24 16:30 | disposition home or self-care (01) ==
PROVIDERS: Emergency Provider Emergency Medicine; PCP Family Medicine
DX: R07.89 Other chest pain (principal); R82.90 Unspecified abnormal findings in urine; E78.2 Mixed hyperlipidemia; E88.810 Metabolic syndrome; M81.0 Age-related osteoporosis without current pathological fracture; H35.30 Unspecified macular degeneration
CPT/HCPCS: 36415; 71275; 74176; 80053; 81001; 85025; 85380; 85610; 85730; 87077; 87086; 87186; 96374; 99284; J2270; Q9967